=== PATIENT | female | born 1950 | race Caucasian/White ===

== ENCOUNTER 2022-10-20 10:01 | Outpatient (OUT) | payer MEDICARE, SELFPAY ==
[2022-10-20 10:52] LABS: Alanine Aminotransferase 46 U/L (14-59); Albumin Level 3.6 g/dL (3.4-5.0); Alkaline Phosphatase 69 U/L (46-116); Anion Gap 10.5; Aspartate Amino Transferase 46 U/L (15-37); BUN Creatinine Ratio 16.2; Bilirubin Total 0.8 mg/dL (0.2-1.0); Calcium 9.1 mg/dL (8.5-10.1); Carbon Dioxide 29.9 mmol/L (21.0-32.0); Chloride 102 mmol/L (98-107); Estimated GFR (African America >60 (>=60); Estimated GFR (Non-African Ame 55 (>=60); Globulin 3.7 g/dL; Glucose 93 mg/dL (74-106); Potassium 4.4 mmol/L (3.5-5.1); Sodium 138 mmol/L (136-145); Total Protein 7.3 g/dL (6.4-8.2)
== END 2022-10-20 10:02 ==
LOC: LAB 10:08
DX: N18.30 Chronic kidney disease, stage 3 unspecified (principal)
CPT/HCPCS: 36415; 80053

== ENCOUNTER 2023-03-20 10:35 | Outpatient (RCR) | payer MEDICARE, SELFPAY | END 2023-04-15 17:10 | disposition home or self-care (01) | LOC: PT 10:35 | DX: M16.11 Unilateral primary osteoarthritis, right hip (principal) | CPT/HCPCS: 97110; 97112; 97161; 97530 ==

== ENCOUNTER 2023-04-15 10:40 | Outpatient (OUT) | payer MEDICARE, SELFPAY ==
[2023-04-15 12:43] LABS: Alanine Aminotransferase 19 U/L (14-59); Albumin Globulin Ratio 0.9; Albumin Level 3.7 g/dL (3.4-5.0); Alkaline Phosphatase 101 U/L (46-116); Anion Gap 13.1; Aspartate Amino Transferase 21 U/L (15-37); BUN Creatinine Ratio 10.8; Bilirubin Total 0.5 mg/dL (0.2-1.0); Calcium 9.2 mg/dL (8.5-10.1); Carbon Dioxide 27.4 mmol/L (21.0-32.0); Chloride 101 mmol/L (98-107); Estimated GFR (African America >60 (>=60); Estimated GFR (Non-African Ame 59 (>=60); Globulin 3.9 g/dL; Glucose 96 mg/dL (74-106); Magnesium 2.2 mg/dL (1.8-2.4); Potassium 4.5 mmol/L (3.5-5.1); Sodium 137 mmol/L (136-145); Total Protein 7.6 g/dL (6.4-8.2)
[2023-04-15 13:13] LABS: TSH W/ REFLEX FT4 2.922 (0.358-3.740)
== END 2023-04-15 10:41 | disposition home or self-care (01) ==
LOC: LAB 10:42
DX: R42 Dizziness and giddiness (principal)
CPT/HCPCS: 36415; 80053; 82607; 83735; 84443

== ENCOUNTER 2023-05-04 09:53 | Outpatient (RCR) | payer MEDICARE, SELFPAY | END 2023-05-17 08:00 | disposition home or self-care (01) | LOC: PT 09:53 | PROVIDERS: PCP Nurse Practitioner Family; Visit Provider Nurse Practitioner Family | DX: M47.812 Spondylosis without myelopathy or radiculopathy, cervical region (principal); R42 Dizziness and giddiness; M54.2 Cervicalgia; M79.603 Pain in arm, unspecified | CPT/HCPCS: 97110; 97161 ==

== ENCOUNTER 2023-05-18 10:03 | Outpatient (RCR) | payer MEDICARE, SELFPAY | END 2023-05-23 16:47 | disposition home or self-care (01) | LOC: PT 10:03 | PROVIDERS: PCP Nurse Practitioner Family; Visit Provider Nurse Practitioner Family | DX: M47.812 Spondylosis without myelopathy or radiculopathy, cervical region (principal); R42 Dizziness and giddiness; M54.2 Cervicalgia ==

== ENCOUNTER 2023-10-09 11:15 | Outpatient (OUT) | payer MEDICARE, SELFPAY ==
--- NOTE | 2023-10-09 | MM_ITS ---
Patient Name: GRACIE FAROOQ MR#: [id number] : 1950 Exam Date: 10/09/2023 Ordering Doctor: Gela Bustillo RADIOLOGY REPORT PROCEDURE: MM TOMOSYNTHESIS SCREENING BI COMPARISON: MG MAMM SCREEN MARYAM W CAD, 06/21/2018. MG MAMM SCREEN MARYAM W CAD, 05/19/2017. INDICATIONS: Breast Screening for malignant neoplasm Calculator Name NCI Breast Cancer Risk Assessment Tool 5 Year Breast Cancer Risk 2.20% Lifetime Breast Cancer Risk 5.70% Personal Breast Cancer No Personal Ovarian Cancer No Treatments None Family Cancers Father with lung cancer at age 76. LOCATION: [facility] BREAST COMPOSITION: The breasts are heterogeneously dense,which may obscure small masses. FINDINGS: DIAGNOSTIC CATEGORY 2--BENIGN FINDING: RIGHT BREAST: No significant suspicious finding. Scattered benign-appearing calcifications are present. No significant change has occurred. LEFT BREAST: No significant suspicious finding. Scattered benign-appearing calcifications are present. No significant change has occurred. RECOMMENDATIONS: ROUTINE MAMMOGRAM AND CLINICAL EVALUATION IN 12 MONTHS. PLEASE NOTE: A NORMAL MAMMOGRAM DOES NOT EXCLUDE THE POSSIBILITY OF BREAST CANCER. A CLINICALLY SUSPICIOUS PALPABLE LUMP SHOULD BE BIOPSIED. Dictated by: Jason Diego M.D. on 10/13/2023 at 12:13 Approved by: Jason Diego M.D. on 10/13/2023 at 12:14
[2023-10-09 12:20] LABS: Alanine Aminotransferase 30 U/L (14-59); Albumin Globulin Ratio 0.7; Albumin Level 3.6 g/dL (3.4-5.0); Alkaline Phosphatase 80 U/L (46-116); Anion Gap 11.5; Aspartate Amino Transferase 34 U/L (15-37); BUN Creatinine Ratio 14.4; Bilirubin Total 0.9 mg/dL (0.2-1.0); Calcium 9.3 mg/dL (8.5-10.1); Carbon Dioxide 28.3 mmol/L (21.0-32.0); Chloride 101 mmol/L (98-107); Chol HDL Ratio 2.7; Cholesterol 212 mg/dL (<=200); Estimated GFR (African America >60 (>=60); Estimated GFR (Non-African Ame 56 (>=60); Glucose 91 mg/dL (74-106); HDL Cholesterol 80 mg/dL (40-60); Potassium 3.8 mmol/L (3.5-5.1); Sodium 137 mmol/L (136-145); Total Protein 8.6 g/dL (6.4-8.2); Triglycerides 39 mg/dL (<=150); VLDL CHOLESTEROL 7.8 mg/dL
== END 2023-10-09 11:16 | disposition home or self-care (01) ==
LOC: MAMMO 11:18
PROVIDERS: PCP Nurse Practitioner Family; Visit Provider Nurse Practitioner Family
DX: Z12.31 Encounter for screening mammogram for malignant neoplasm of breast (principal); N18.9 Chronic kidney disease, unspecified; E78.5 Hyperlipidemia, unspecified; Z80.1 Family history of malignant neoplasm of trachea, bronchus and lung
CPT/HCPCS: 36415; 77063; 77067; 80053; 80061

== ENCOUNTER 2024-11-09 07:19 | Outpatient (OUT) | payer MEDICARE, SELFPAY ==
--- OUTSIDE RECORDS SUMMARY | 2024-11-08 14:35 | XMS_ITS | Patient Health Record ---
Author Organization [facility] C Address [address] [place] [address] Care Team Providers Care Retail Business Manager Name Role Phone [facility] Primary Care Provide r Unavailable Allergies Allergen (clinical drug ingredient) Drug/Non Drug Allergy documented on EMR Reaction Allergy Type Onset Date Status ANESTHESIAS (uncoded) stays in the hospital longer than planned Allergy Active Reason For Referral No Information Medications Medication SIG (Take, Route, Frequency, Duration) Notes Start Date End Date Status Lutein *Please review a nd pick correct strength-formulation from Cold Futuresan options. If intended option is not shown, discontinue and re-order from Quick Search* Active predniSONE 20 MG 1 tab(s) orally once a day for 5 days 02/15/2018 Active Immunizations Vaccine Route Administration Date Status Comme nts Flu Vaccine (Given in Past) Unspecified Unknown 06/03/2022 Administered Pneumonia ( Given in the Pas t) Unspecified Unknown 06/03/2022 Administered Plan Of Treatment No Information Insurance Providers Payer Name Payer Address Payer Phone Subscriber Number Group Number Insured Name Patient Relationship to Insured Coverage Start Date Coverage End [place] [address] [place] [address] [id number] GRACIE Jones Self - patient is the insured [place] [employer] MEDICARE SUPPLEMENT ADMINISTRAT [place]ON [address] [address] [place] [address] [id number] GRACIE Jones Self - patient is the insured Medical (General) History Medical History History ICD Code Macular Degeneration Surgical History Surgery Date(Month/Year) Spine C-sections x2 Hospitalization History Reason Date(Month/Year) See above
--- OUTSIDE RECORDS SUMMARY | 2024-11-08 14:35 | XMS_ITS | Clinical Summary ---
Author Organization [facility] Address [address] [place] [address] Care Team Providers Care City Tax Auditor Name Role Phone Unallocated, Noms Provider Primary Care Provi magali Gela Bustillo SPRINKLER FITTER HELPER Unavailable Allergies Active Allergy Reactions Criticality Noted Date Comments Hydrocodone-Acetaminophen Nausea Only Medium 3 Mosquito (Diagnostic) Swelling 01/06/2023 Oxycodone Nausea Only Medium 01/06/2023 Propofol Unknown 01/06/2023 Medications Jublia 10 % solutionIndicat ions:Onychomyco sis APPLY ONCE TOPICALLY DAILY 4 mL 3 5 Active Efinaconazole (Jublia) 10 % solutionIndicat ions:Onychomyco sis Apply 1 application topically Daily 10 mL 3 5 12/27/19 25 Active Active Problems Problem Noted Date Diagnosed Date Dizziness 02/16/2024 Assessment & Plan (02/16/2024 10:48 AM EDT): --- cervicogenic dizziness. PT 2nd opinion - [facility]. Cervical paraspinal muscle spasm 02/16/2024 Assessment & Plan (02/16/2024 10:51 AM EDT): PT. Add Mg. No clear need for Rx muscle relaxant, but pt could have tizanidine 4 if/when desired. Encounters Date Type Department Care Team Description 11/03/2024 Travel 09/26/2024 11:30 AM EDT Procedure Visit [facility] [address] [place] [address] Catherine Vega DPM Onychomycosis (Primary Dx); Pain in both feet; Corns and callosities 09/26/2024 Telephone [facility] [address] [place] [address] TereTomeka MA Nirmala 09/26/2024 Refill [facility] [address] [place] [address] Catherine Vega DPM Onychomycosis 09/26/2024 Bamboo flowsheet [facility] [address] [place] [address] Catherine Vega DPM 09/26/2024 Travel from Last 3 Months Family History Medical History Relation Name Comments Uterine cancer Maternal Grandmother Relation Name Status Comments Daughter Alive Father Maternal Grandmother Mother Sister Alive Son Alive Social History Tobacco Use Types Packs/Day Years Used Date Smoking Tobacco: Former Cigarettes Tobacco Cessation:Counseling Given: Not Answered Alcohol Use Standard Drinks/Week Comments Never 0 (1 standard drink = 0.6 oz pure alcohol) caffeine intake: 1-2 cups per day Comments Unknown Sex and Gender Information Value Date Recorded Sex Assigned at Not on file Legal Sex Female 6:41 PM EDT Gender Identity Not on file Sexual Orientation Not on file Last Filed Vital Signs Vital Sign Reading Time Taken Comments Blood Pressure 137/87 02/16/2024 10:15 AM EDT Pulse 71 02/16/2024 10:15 AM EDT Temperature - - Respiratory Rate - - Oxygen Saturation - - Inhaled Oxygen Concentration - - Weight 70.3 kg (155 lb) 02/16/2024 10:15 AM EDT Height 157.5 cm (5' 2 ) 02/16/2024 10:15 AM EDT Body Mass Index 28.35 02/16/2024 10:15 AM EDT Plan of Treatment Upcoming Encounters Date Type Department Care Team (Late st Contact Info) Description 11/10/2024 8:00 AM EDT Evaluation [facility] [address] [place] [address] Tamara Peres, PT 12/26/2024 11:30 AM EDT Procedure Visit [facility] [address] [place] [address] Catherine Vega, DPM [address] [facility] [address] [place] [address] Health Maintenance Due Date Last Done Comments CT Colonography 1950 Colonoscopy 1950 Colorectal Cancer Screening 1950 FIT-DNA 1950 FIT 1950 FOBT 1950 Sigmoidoscopy 1950 Mammogram 06/21/2019 06/21/2018, 06/21/2018 Pneumococcal Vaccine: 65+ Years Completed 06/03/2022, 04/07/2019, 2017 Influenza Vaccine Completed 02/04/2024, , 06/03/2022, Additional history exists Procedures Procedure Name Priority Date/Time Associated Diagnosis Comments BI MAMMOGRAM SCREENING BILATERAL Routine 06/21/2018 Diffuse cystic mastopathy of right breast Encounter for screening mammogram for malignant neoplasm of breast from Last 3 Months or Most Recently Relevant to Health Maintenance Results * Bilateral screening mammogram (06/21/2018) Anatomical Region Laterality Modality Breast Bilateral Mammography Impressions 06/21/2018 12:00 AM EST NO MAMMOGRAPHIC EVIDENCE OF MALIGNANCY. ROUTINE FOLLOW-UP IS RECOMMENDED IN ONE YEAR. RESULT CODE: 2 Benign Findings(s) DENSITY CODE: 3 FOLLOW UP: 1YR The false-negative rate of mammography is approximately 10-percent. Management of a palpable abnormality must be based on clinical grounds. Patient was entered into a reminder system with a target due date for the next mammogram. Impression dictated by: Tiana Ayers M.D.06/21/2018 3:36 PM Dictation Location: [facility] Transcribed By: CORNEL 06/21/18 1536 Dictated By: Tiana Ayers MD 06/21/18 1533 Signed By: <Electronically signed by Tiana Ayers MD in OV> 06/21/18 1536 Narrative 06/21/2018 12:00 AM EST PERFORMED AT [facility] LOCATION:[place] [address] Mammography Report Signed Patient: Hayde Jones MR#: [id number] : 1950 Acct:[id number] Age/Sex: 68 / F ADM Date: 06/21/18 Loc: [place] Room: Type: REG CLI Attending Dr: Walter Horne MD Ordering Provider: Walter Horne MD Date of Service: 06/21/18 MM/MM screening mammo BI w/CAD: scrn;Breast cancer screening Copies to: Walter Horne MD CLINICAL DATA: Screening for malignancy. BILATERAL SCREENING MAMMOGRAMS - FULL FIELD DIGITAL WITH TOMOSYNTHESIS AND CAD Tomosynthesis craniocaudal and mediolateral oblique views of both breasts were obtained using low- dose digital technique. Comparison is made to prior studies from March 27, 2014 through 2017. This examination was reviewed with the aid of CAD. The breast parenchyma is heterogeneously dense. There are multiple scattered benign as well as vascular calcifications. A small intramammary lymph node is present on the right. There are no developing masses, typically malignant calcifications or architectural distortion. There has been no significant interval change. MM/MM screening mammo BI w/CAD Procedure Note CONVERSION, GENERIC - 11/21/2022 PERFORMED AT [facility] LOCATION:[place] [id number] Mammography Report Signed Patient: Hayde Jones MR#: [id number] : 1950 Acct:[id number] Age/Sex: 68 / F ADM Date: 06/21/18 Loc: [place] Room: Type: REG CLI Attending Dr: Walter Horne MD Ordering Provider: Walter Horne MD Date of Service: 06/21/18 MM/MM screening mammo BI w/CAD: scrn;Breastcancer screening Copies to: Walter Horne MD CLINICAL DATA: Screening for malignancy. BILATERAL SCREENING MAMMOGRAMS - FULL FIELD DIGITAL WITH TOMOSYNTHESISAND CAD Tomosynthesis craniocaudal and mediolateral oblique views of both breastswere obtained using low- dose digital technique. Comparison is made to prior studies from 2013 through 2017. This examination was reviewed with the aid of CAD. The breast parenchyma is heterogeneously dense. There are multiplescattered benign as well as vascular calcifications. A small intramammary lymph node is present onthe right. There are no developing masses, typically malignant calcifications or architecturaldistortion. There has been no significant interval change. MM/MM screening mammo BI w/CAD IMPRESSION: NO MAMMOGRAPHIC EVIDENCE OF MALIGNANCY. ROUTINE FOLLOW-UP IS RECOMMENDED IN ONE YEAR. RESULT CODE: 2 Benign Findings(s) DENSITY CODE: 3 FOLLOW UP: 1YR The false-negative rate of mammography is approximately 10-percent. Management of a palpable abnormality must be based on clinical grounds. Patient was entered into a reminder system with a target due date for thenext mammogram. Impression dictated by: Tiana Ayers M.D.06/21/2018 3:36 PM Dictation Location: [facility] Transcribed By: [facility] 06/21/18 1536 Dictated By: Tiana Ayers MD 06/21/18 1533 Signed By: <Electronically signed by Tiana Ayers MD in OV> Walter Horne IMG BI PROCEDURES Final Result from Last 3 Months or Most Recently Relevant to Health Maintenance Insurance MEDICARE [employer] Care Teams City Tax Auditor Relationship Specialty Start Date End Date Unallocated, Noms Provider, [address] [place] [address] PCP - General 01/06/23 Gela Bustillo NP [address] [place] [address] Referring Physician Family Medicine 06/27/24
--- OUTSIDE RECORDS SUMMARY | 2024-11-08 14:35 | XMS_ITS | Encounter Summary ---
Author Organization [facility] Address [address] [place] [address] Care Team Providers Care Combat Information Center Officer Name Role Phone Unallocated, Noms Provider Primary Care Provi magali Gela Bustillo NP Unavailable [phone] Encounter Details Date Type Department Care Team (Latest Contact Info) Description 11/03/2024 Travel Social History Tobacco Use Types Packs/Day Years Used Date Smoking Tobacco: Former Cigarettes Alcohol Use Standard Drinks/Week Comments Never 0 (1 standard drink = 0.6 oz pure alcohol) caffeine intake: 1-2 cups per day Comments Unknown Sex and Gender Information Value Date Recorded Sex Assigned at Not on file Legal Sex Female 6:41 PM EDT Gender Identity Not on file Sexual Orientation Not on file documented as of this encounter Plan of Treatment Upcoming Encounters Date Type Department Care Team (Late st Contact Info) Description 11/10/2024 8:00 AM EDT Evaluation [facility] [address] [facility] [address] [place] [phone] Tamara Peres, PT 12/26/2024 11:30 AM EDT Procedure Visit [facility] [address] [place] [address] Catherine Vega DPM [address] [place] [address] documented as of this encounter Visit Diagnoses Not on filedocumented in this encounter Care Teams Combat Information Center Officer Relationship Specialty Start Date End Date Unallocated, Noms Provider, MD [address] [place], [place] [phone] PCP - General 01/06/23 Gela Bustillo NP [address] [place] [address] Referring Physician Family Medicine 06/27/24 documented as of this encounter
--- OUTSIDE RECORDS SUMMARY | 2024-11-08 14:35 | XMS_ITS | Encounter Summary ---
Author Organization [facility] Address [address] [place] [address] Care Team Providers Care Carry Out Clerk Name Role Phone Gela Bustillo CNP Unavailable [phone] Gela Bustillo FREDI Primary Care Provider [phone] Source Comments In the event this information is protected by the Federal Confidentiality of Alcohol and Drug AbusePatient Records regulations: The Federal rules restrict any use of the information to criminally investigate or prosecute any alcohol or drug abuse patient.[facility] Reason for Visit * Reason Comments Radiology XR Encounter Details Date Type Department Care Team (Late st Contact Info) Description 04/13/2023 Radiology Radiology [address] [place] [address] Georgia Walls RT(R) Radiology XR Social History Tobacco Use Types Packs/Day Years Used Date Smoking Tobacco: Former Cigarettes 0.2 1 1 973 - 1974 Smokeless Tobacco: Never Alcohol Use Standard Drinks/Week Comments Yes 0 (1 standard drink = 0.6 oz pur e alcohol) occasionally Social Connection and Isolat ion Panel [NHANES] Answer Date Recorded In a typical week, how many times do you talk on the phone with family, friends, or neighbors? Once a week 06/29/2022 How often do you get togethe r with friends or relatives? More than three times a week 06/29/2022 How often do you attend chur ch or christian services? More than 4 times per year 06/29/2022 Do you belong to any clubs o r organizations such as muslim groups, unions, fraternal or athletic groups, or school groups? Yes 06/29/2022 How often do you attend meet ings of the clubs or organizations you belong to? More than 4 times per year 06/29/2022 Are you , , di vorced, , never , or living with a partner? 06/29/2022 AUDIT-C Answer Date Recorded Q1: How often do you have a drink containing alc ohol? 2-4 times a month 06/29/2022 Q2: How many drinks containi ng alcohol do you have on a typical day when you are drinking? 1 or 2 06/29/2022 Q3: How often do you have si x or more drinks on one occasion? Never 06/29/2022 Overall Financial Resource Strain (CARDIA) Answe r Date Recorded How hard is it for you to pa y for the very basics like food, housing, medical care, and heating? Not hard at all 03/18/2023 PHQ-2 Answer Date Recorded PHQ-2 score 4 04/06/2023 [facility] of Occupat ional Health - Occupational Stress Questionnaire Answer Date Recorded Do you feel stress - tense, restless, nervous, or anxious, or unable to sleep at night because your mind is troubled all the time - these days? Not at all 06/29/2022 Exercise Vital Sign Answer Date Recorde d On average, how many days pe r week do you engage in moderate to strenuous exercise (like a brisk walk)? 6 days 06/29/2022 On average, how many minutes do you engage in exercise at this level? 60 min 06/29/2022 Hunger Vital Sign Answer Date Recorded Within the past 12 months, y ou worried that your food would run out before you got the money to buy more. Never true 03/18/20 23 Within the past 12 months, t he food you bought just didn't last and you didn't have money to get more. Never true 03/18/2023 PRAPARE - Transportation Answer Date Re corded In the past 12 months, has l ack of transportation kept you from medical appointments or from getting medications? No 05/2022 In the past 12 months, has l ack of transportation kept you from meetings, work, or from getting things needed for daily living? No 03/18/2023 Housing Stability Vital Sign Answer Prasanna e Recorded In the last 12 months, was t here a time when you were not able to pay the mortgage or rent on time? No 03/18/2023 Number of Places Lived in the Last Year Not on f ile 03/18/2023 In the last 12 months, was t here a time when you did not have a steady place to sleep or slept in a retirement (including now)? No 03/18/2023 Area Deprivation Index Answer Date Atnhony rded National Score (1-100), lower number is lower ri sk 79 10/14/2022 State Score (1-10), lower number is lower risk 7 10/14/2022 Data from: https://www.neighborhoodatlas.medicine.[facility].edu/. Last address used for calculation [address] 10/14/2022 Comments No Sex and Gender Information Value Date Recorded Sex Assigned at Female 10/20/2021 8:50 PM EDT Legal Sex Female 11:55 AM EDT Gender Identity Female 10/20/2021 8:50 PM EDT Sexual Orientation Straight 10/20/2021 8: 50 PM EDT documented as of this encounter Functional Status * Are you deaf or do you have serious difficulty hearing? Answer Date of Assessment Author No 03/19/2023 1:09 PM EDT Tamra Weller RN * Are you blind or do you have serious difficulty seeing, even when wearing glasses? Answer Date of Assessment Author No 03/19/2023 1:09 PM EDT Tamra Weller RN * Do you have serious difficulty walking or climbing stairs? Answer Date of Assessment Author No 03/19/2023 1:09 PM EDT Tamra Weller RN * Do you have difficulty dressing or bathing? Answer Date of Assessment Author No 03/19/2023 1:09 PM EDT Tamra Weller RN * Because of a physical, mental, or emotional condition, do you have difficulty doing errands alone such as visiting a doctor's office or shopping? Answer Date of Assessment Author No 03/19/2023 1:09 PM EDT Tamra Weller RN documented as of this encounter Mental Status * Because of a physical, mental, or emotional condition, do you have serious difficulty concentrating, remembering, or making decisions? Answer Entry Date Author No 03/19/2023 1:09 PM EDT Tmara Weller RN documented in this encounter Progress Notes * Georgia Walls RT(R) - 04/13/2023 10:34 AM EST Radiology Service Progress Note PATIENT NAME: Hayde Jones DATE OF SERVICE: April 13, 2023 TIME: 10:34 AM PATIENT IDENTITY VERIFICATION COMPLETED USING TWO (2) IDENTIFIERS: Name and Date of confirmedby patient verbally. FALL SCREENING: Has the patient had 2 falls in the last year or 1 fall with injury or currently using an Ambulatory Assistive Device (Walker, Cane, Wheelchair, Crutches, etc.)? No PATIENT GENDER DATA: Female. status: : No status: NO. PATIENT RELEVANT IMPLANT DATA REVIEWED: Not Applicable RADIOLOGY DEPARTMENT: General X-ray: Exam(s) Completed: Pelvis X-Ray: Pelvis General AP PERIPHERAL IV DATA: Not applicable SIGNED BY: RT Bridger(Linda) April 13, 2023 10:34 AM documented in this encounter Plan of Treatment Upcoming Encounters Date Type Department Care Team (Late st Contact Info) Description 12/07/2024 12:30 PM EDT Office Visit Orthopaedics [address] [place], [place] [id number] Aurora Amaya PA-C [address] [place], [place] [phone] 2 month f/u RIGHT HIP PAIN documented as of this encounter Visit Diagnoses Not on filedocumented in this encounter Care Teams Carry Out Clerk Relationship Specialty Start Date End Date Gela Bustillo CNP [address] [place] [address] PCP - General Family Medicine 03/10/22 Gela Bustillo CNP [address] [address] Referring Family Medicine 10/02/21 documented as of this encounter
--- OUTSIDE RECORDS SUMMARY | 2024-11-08 14:36 | XMS_ITS | Clinical Summary ---
Author Organization [facility] Address [address] [place], [place] [address] Care Team Providers Care Certified Travel Counselor Name Role Phone Keny Gela RAI Unavailable [phone] KenyGela FREDI Primary Care Provider [phone] Allergies No known active allergies Medications Cholecalciferol , Vitamin D3, 50 mcg (2,000 unit) cap Take 2,000 Units by mouth once daily. 12/25/2021 Active turmeric 400 mg cap Take 1 capsule by mouth once daily. Active Active Problems Problem Noted Date Diagnosed Date Piriformis syndrome, right 03/28/2024 Trochanteric bursitis of right hip 09/23/2023 Aftercare following right hip joint replacement surgery 04/13/2023 S/P hip replacement, right 03/18/2023 Acute postoperative pain of right hip 03/18/2023 Hypotension due to hypovolemia 03/17/2023 Sinus bradycardia 03/17/2023 PONV (postoperative nausea and vomiting) 023 Assessment & Plan (02/18/2023 9:38 AM EDT): Assessment: states hx of nausea post op Primary osteoarthritis of right hip 02/18/2023 Elevated BP without diagnosis of hypertension Assessment & Plan (02/18/2023 9:38 AM EDT): Assessment: Denies hx of HTN Last 4 Encounter BP Readings: Date: BP: 02/18/2023 145/84 09/02/2022 135/67 08/05/2022 146/90 06/30/2022 152/86 Pre-operative examination 03/25/2022 Fuchs' corneal dystrophy of both eyes 03/25/2022 Stage 3 chronic kidney disease 12/09/2021 Assessment & Plan (02/18/2023 9:37 AM EDT): Assessment: hx of CKD, most recent labs stable Follows nephrology. BMP Latest Ref Rng & Units 01/07/2023 GLUCOSE 74 - 99 mg/dL 100(H) BUN 7 - 21 mg/dL 13 CREATININE 0.58 - 0.96 mg/dL 0.92 SODIUM 136 - 144 mmol/L 134(L) POTASSIUM 3.7 - 5.1 mmol/L 4.0 CHLORIDE 97 - 105 mmol/L 100 CO2 22 - 30 mmol/L 26 ANION GAP 9 - 18 mmol/L 8(L) CALCIUM, TOTAL 8.5 - 10.2 mg/dL 9.4 eGFR >=60 mL/min/1.73m 67 Assessment & Plan (08/05/2022 10:24 AM EDT): Assessment: stable following with PCP Hyperlipidemia, unspecified 04/06/2021 Encounters Date Type Department Care Team Description 10/06/2024 9:02 AM EDT - 10/06/2024 11:59 PM EDT Hospital Encounter Radiology [address] [place] [address] Trochanteric bursitis of right hip [M70.61] Discharge Disposition: Home 10/06/2024 9:00 AM EDT Office Visit Orthopaedics [address] [place] [address] Aurora Amaya PA-C Trochanteric bursitis of right hip (Primary Dx); Piriformis syndrome, right; Aftercare following right hip joint replacement surgery 10/06/2024 Radiology Radiology [address] [place] [address] Bethany Ramachandran, RT(R) Radiology XR 10/04/2024 Travel from Last 3 Months Immunizations Immunization Administration Dates Next Due hepatitis A (HepA) vaccine, adult (HAVRIX, VAQTA ) 01/02/2015,06/14/2014 influenza (HD-IIV3) vaccine, age 65+ yr, high dose, trivalent, PF (FLUZONE HIGH-DOSE) 03/26/2017 influenza (IIV4) vaccine, ag e 6 mo - 64 yr, quadrivalent (AFLURIA, FLULAVAL, FLUZONE) 03/25/2022 influenza (aIIV3) vaccine, a ge 65+ yr, trivalent, PF (FLUAD) 04/07/2019 influenza (aIIV4) vaccine, a ge 65+ yr, quadrivalent, PF (FLUAD QUAD) 03/25/2022,03/01/2021 novel influenza (V6K8-38) vaccine, PF 05/08/2009 pneumococcal conjugate (PCV1 3) vaccine, 13 valent (PREVNAR 13) 2017 pneumococcal polysaccharide (PPV23) vaccine, 23 valent (PNEUMOVAX 23) 04/07/2019 tetanus diphtheria pertussis (Tdap) vaccine, age 7+ yr (ADACEL, BOOSTRIX) 04/07/2019 typhoid vaccine, subcutaneous/intradermal 2014 zoster (RZV) vaccine, recombinant (SHINGRIX) 09/2018,03/23/2018 Family History Medical History Relation Comments PONV Daughter Relation Status Comments Daughter Social History Tobacco Use Types Packs/Day Years Used Date Smoking Tobacco: Former Cigarettes 0.2 1 1 973 - 1974 Smokeless Tobacco: Never Tobacco Cessation:Counseling Given: Not Answered Alcohol Use Standard Drinks/Week Comments Yes 0 [...] often do you attend chur ch or spiritism services? More than 4 times per year 06/29/2022 Do you belong to any clubs o r organizations such as jain groups, unions, fraternal or athletic groups, or [...] 03/18/2023 PHQ-2 Answer Date Recorded PHQ-2 score 1 10/04/2024 [facility] - Occupational Stress [...] place to sleep or slept in a halfway (including now)? No 03/18/2023 Area Deprivation Index Answer Date Anthony rded National Score (1-100), lower number is lower ri sk 79 10/14/2022 State Score (1-10), lower number is lower risk 7 10/14/2022 Data from: https://www.neighborhoodatlas.[facility].edu/. Last address used for calculation [address] 10/14/2022 Comments No Sex and Gender Information Value Date Recorded Sex Assigned at Female 10/20/2021 8:50 PM EDT Legal Sex Female 11:55 AM EDT Gender Identity Female 10/20/2021 8:50 PM EDT Sexual Orientation Straight 10/20/2021 8: 50 PM EDT Last Filed Vital Signs Vital Sign Reading Time Taken Comments Blood Pressure 108/56 03/19/2023 11:44 AM EDT Pulse 68 03/19/2023 11:44 AM EDT Temperature 36.7 C (98.1 F) 03/19/2023 11:44 AM EDT Respiratory Rate 16 03/19/2023 11:44 AM EDT Oxygen Saturation 100% 03/19/2023 11:44 AM EDT Inhaled Oxygen Concentration - - Weight 72.1 kg (159 lb) 03/28/2024 8:47 AM EST Height 157.5 cm (5' 2 ) 03/28/2024 8:47 AM EST Body Mass Index 29.08 03/28/2024 8:47 AM EST Plan of Treatment Upcoming Encounters Date Type Department Care Team (Late st Contact Info) Description 12/07/2024 12:30 PM EDT Office Visit Orthopaedics [address] [place], [place] [id number] Aurora Amaya PA-C [address] [place] [address] 2 month f/u RIGHT HIP PAIN Health Maintenance Due Date Last Done Comments Anxiety Screening 1969 Depression Screening 1969 Hepatitis C Screening 1969 CT Colonography 1996 Cologuard (FIT-DNA) 1996 Colonoscopy 1996 Colorectal Cancer Screening 1996 Fecal Occult Blood 1996 Lipid Screening 1996 Sigmoidoscopy 1996 Bone Density Screening 2016 Medicare Annual Wellness Visit 10/16/2016 Mammogram Screening 06/21/2019 06/21/2018, 06/21/2018, 06/21/2018 Annual PCP Team Chronic Dise ase Visit 06/30/2023 06/30/2022 Covid-19 Vaccine (7 - 4-2 5 season) 2024 02/18/2023, 03/25/2022, 10/04/2021, Additional history exists Serum Creatinine 03/19/2024 03/19/2023, 05/2022, 01/07/2023 Advance Directive Discussion 05/18/2024 Influenza Vaccine (Season Ended) 2025 02/18/2023, 06/03/2022, 03/25/2022, Additional history exists Diabetes Screening 03/19/2026 03/19/2023, 1 05/18/2022, 01/07/2023, Additional history exists DTaP,Tdap,Td Vaccine (2 - Td or Tdap) 04/07/2029 04/07/2019, 04/07/2019 Shingrix Vaccine Completed 07/20/2018, 03/23/2018 Pneumococcal Vaccine: 50+ Completed 2022, 04/07/2019, 2017 RSV Vaccine Completed 04/29/2023 Medical Devices Implanted Type Area Patient Access Manager Device Identifier Shelf Expiration Date Model / Serial / Lot Cornea Tissue Pre-Loaded Dmek - [id number] Implanted:Qty: 1 on 03/17/2022 by Alex Combs MD at [facility] Cornea Left: Eye [employer] 03/26/2022 CORNEA TISSUE FEE / [id number] / Cornea Tissue Pre-Loaded Dmek - [id number] Implanted:Qty: 1 on 04/14/2022 by Alex Combs MD at [facility] Cornea Right: Eye [employer] 04/20/2022 CORNEA TISSUE FEE / [id number] / Gas Ispan Constellation Intraocular Vision System Sf6 125gm - [id number] Implanted:Qty: 1 on 03/17/2022 by Alex Combs MD at [facility] Implant Left: Eye [employer] 10/16/2023 [id number] / / [id number] Gas Ispan Constellation Intraocular Vision System Sf6 125gm - [id number] Implanted:Qty: 1 on 04/14/2022 by Alex Combs MD at [facility] Implant [employer] 12/16/2023 [id number] / / [id number] Lens Iol 0d +21 Eloisa Uv Abs - [id number] Implanted:Qty: 1 on 03/17/2022 at [facility] Intraocular Lens Left: Eye [employer] 10/30/2025 SA60WF.210 / [id number] / Lens Iol 0d +21.5 Eloisa Uv Abs - [id number] Implanted:Qty: 1 on 04/14/2022 at [facility] Intraocular Lens Right: Eye [employer] 11/09/2026 SA60WF.215 / [id number] / Head V40 Lfit 22mm +3mm Offset Taper Cocr Femoral Primary Hip - [id number] Implanted:Qty: 1 on 03/17/2023 at [facility] Joint - Hip Right: Bone - Hip [employer] 11/05/2027 [id number] / / [id number] Shell Trident Ii 46mm C Tritanium Acetabular 3 Screw Hole Cluster Sterile - [id number] Implanted:Qty: 1 on 03/17/2023 at [facility] Joint - Hip Right: Bone - Hip [employer] 10/08/2027 [id number] / / [id number] Liner Mdm 36mm C Cocr Acetabular 2 Mobility Modular Hip - [id number] Implanted:Qty: 1 on 03/17/2023 at [facility] Joint - Hip Right: Bone - Hip [employer] 01/14/2028 [id number] / / [id number] Estefany Adm X3 Ins Estefany Adm X3 Ins 42 - [id number] Implanted:Qty: 1 on 03/17/2023 at [facility] Joint - Hip Right: Bone - Hip [employer] 08/11/2027 [id number] / / [id number] Stem Accolade Ii V40 132d 2 33mm Offset Purefix Titanium Plasma [place] 99mm - [id number] Implanted:Qty: 1 on 03/17/2023 at [facility] Joint Right: Bone - Hip [employer] 11/01/2025 [id number] / / [id number] Procedures Procedure Name Priority Date/Time Associated Diagnosis Comments XR HIP GENERAL 3V PELV/AP/LAT RIGHT Routine 10/06/2024 9:11 AM EDT Trochanteric bursitis of right hip Piriformis syndrome, right Aftercare following right hip joint replacement surgery BASIC METABOLIC PANEL Routine 03/19/2023 3:37 AM EDT from Last 3 Months or Most Recently Relevant to Health Maintenance Results * XR HIP GENERAL 3V PELV/AP/LAT RIGHT (10/06/2024 9:11 AM EDT) Anatomical Region Laterality Modality Hip Other 10/06/2024 9:11 AM EDT Impressions 10/06/2024 9:31 AM EDT IMPRESSION: Right total hip arthroplasty without complication. Hand Laminator: PSCB Transcribe Date/Time: Oct 06 2024 9:12A Dictated by : RENA MUSE MD This examination was interpreted and the report reviewed and electronically signed by: ISAIAH MONROY MD on Oct 06 2024 9:29AM EST Narrative 10/06/2024 9:31 AM EDT * * *Final Report* * * DATE OF EXAM: Oct 06 2024 9:11AM LZX 5352 - XR HIP 3V PELV+ AP/LAT RT / PROCEDURE REASON: multiple diagnoses * * * * Physician Interpretation * * * * EXAMINATION / TECHNIQUE: XR HIP 3V PELV+ AP/LAT RT PATIENT/TECHNOLOGIST PROVIDED HISTORY: rt hip continued pain since surger over a year ago CLINICAL INFORMATION ( PROVIDED BY ORDERING CLINICIAN) : Trochanteric bursitis of right hip Piriformis syndrome, right Aftercare following right hip joint replacement surgery Aftercare following right hip joint replacement surgery COMPARISON: Radiographs 03/28/2024 RESULT: Right total hip arthroplasty with intact and well-seated hardware. No periprosthetic fracture or lucency. Alignment is unchanged. Minimal heterotopic ossification about the right hip prosthesis. No acute fracture or dislocation. Mild degenerative changes of the bilateral sacroiliac joints and symphysis pubis. Fallopian tube clips noted in the pelvis. Procedure Note Provider, [facility] [place] - 10/06/2024 * * *Final Report* * * DATE OF EXAM: Oct 06 2024 9:11AM LZX 5352 - XR HIP 3V PELV+ AP/LAT RT / PROCEDURE REASON: multiple diagnoses * * * * Physician Interpretation * * * * EXAMINATION / TECHNIQUE: XR HIP 3V PELV+ AP/LAT RT PATIENT/TECHNOLOGIST PROVIDED HISTORY: rt hip continued pain since surger over a year ago CLINICAL INFORMATION ( PROVIDED BY ORDERING CLINICIAN) : Trochanteric bursitis of right hip Piriformis syndrome, right Aftercare following right hip joint replacement surgery Aftercare following right hip joint replacement surgery COMPARISON: Radiographs 03/28/2024 RESULT: Right total hip arthroplasty with intact and well-seated hardware. No periprosthetic fracture or lucency. Alignment is unchanged. Minimal heterotopic ossification about the right hip prosthesis. No acute fracture or dislocation. Mild degenerative changes of the bilateral sacroiliac joints and symphysis pubis. Fallopian tube clips noted in the pelvis. IMPRESSION IMPRESSION: Right total hip arthroplasty without complication. Hand Laminator: ANDREW Transcribe Date/Time: Oct 06 2024 9:12A Dictated by : RENA MUSE MD This examination was interpreted and the report reviewed and electronically signed by: ISAIAH MONROY MD on Oct 06 2024 9:29AM EST us Aurora RAI-PAMAntoinette Final Result * (ABNORMAL) BASIC METABOLIC PNL (03/19/2023 3:37 AM EDT) Glucose 121(H) 74 - 99 mg/dL 03/19/2023 4:35 AM EDT [facility] Comment: The [place] Diabetes Association (ADA) provides guidance for cutoff values for fasting glucose and random glucose. The ADA defines fasting as no caloric intake for at least 8 hours. Fasting plasma glucose results between 100 to 125 mg/dL indicate increased risk for diabetes (prediabetes). Fasting plasma glucose results greater than or equal to 126 mg/dL meet the criteria for diagnosis of diabetes. In the absence of unequivocal hyperglycemia, results should be confirmed by repeat testing. In a patient with classic symptoms of hyperglycemia or hyperglycemic crisis, random plasma glucose results greater than or equal to 200 mg/dL meet the criteria for diagnosis of diabetes. Reference: Standards of Medical Care in Diabetes 2016, Canadian Diabetes Association. Diabetes Care. 2016.39(Suppl 1). BUN 15 7 - 21 mg/dL 03/19/2023 4:35 AM [facility] Creatinine 0.92 0.58 - 0.96 mg/dL 03/19/2023 4:35 AM [facility] Sodium 127(L) 136 - 144 mmol/L 03/19/2023 4:35 AM [facility] Potassium 4.3 3.7 - 5.1 mmol/L 03/19/2023 4:35 AM [facility] Chloride 92(L) 97 - 105 mmol/L 03/19/2023 4:35 AM [facility] CO2 27 22 - 30 mmol/L 03/19/2023 4:35 AM [facility] Anion Gap 8(L) 9 - 18 mmol/L 03/19/2023 4:35 AM [facility] Calcium, Total 7.9(L) 8.5 - 10.2 mg/dL 03/19/2023 4:35 AM [facility] Estimated Glomerular Filtration Rate 67 >=60 mL/min/1. 73m 03/19/2023 4:35 AM [facility] Comment:Estimated Glomerular Filtration Rate (eGFR) is calculated using the 2020 CKD-EPI creatinine equation. This equation utilizes serum creatinine, sex, and age as parameters. The creatinine assay has traceable calibration to isotope dilution- mass spectrometry. Refer to KDIGO guidelines for clinical interpretation. In patients with unstable renal function, e.g. those with acute kidney injury, the eGFR may not accurately reflect actual GFR. Blood BLOOD SPECIMEN / Unknown Venipuncture / Unknown 03/19/2023 3:37 AM EDT 03/19/2023 4:10 AM EDT us Aurora Amaya PA-C LABORATORY Final Result [facility] [address] [facility] [place] [address], [place] from Last 3 Months or Most Recently Relevant to Health Maintenance Insurance MEDICARE MEDICARE SUPPLEMENT Advance Directives Documents on File Type Date Recorded Patient Solar Field Service Technician Expl anation Advance Directive(s) 06/30/2022 1:49 PM Care Teams Certified Travel Counselor Relationship Specialty Start Date End Date Gela Bustillo CNP [address] [address] PCP - General Family Medicine 03/10/22 Gela Bustillo CNP [address] [facility] [address] [place] [address] Referring Family Medicine 10/02/21
--- OUTSIDE RECORDS SUMMARY | 2024-11-09 07:21 | XMS_ITS | Encounter Summary ---
Author Organization [facility] Address [address] [address] Care Team Providers Care Child Welfare Specialist Name Role Phone Unallocated, Noms Provider Primary Care Provi magali Gela Bustillo NP Unavailable [phone] Encounter Details Date Type Department Care [...] AM EDT Evaluation [facility] [address] [facility] [address] [place] [id number] Tamara Peres, PT 12/26/2024 11:30 AM EDT Procedure Visit [facility] [address] [place] [address] Catherine Vega DPM [address] [place] [address] documented as of this encounter Visit Diagnoses Not on filedocumented in this encounter Care Teams Child Welfare Specialist Relationship Specialty Start Date End Date Unallocated, Noms Provider, MD [address] [place], [place] [id number] PCP - General 01/06/23 Gela Bustillo NP [address] [place] [address] Referring Physician Family Medicine 06/27/24 documented as of this encounter
--- OUTSIDE RECORDS SUMMARY | 2024-11-09 07:21 | XMS_ITS | Clinical Summary ---
Author Organization [facility] Address [address] [place], [place] [id number] Care Team Providers Care Wastewater Analyst Name Role Phone Keny Gela RAI Unavailable [phone] Keny Gela FREDI Primary Care Provider [phone] Allergies No known active allergies Medications Cholecalciferol [...] PM EDT Hospital Encounter Radiology [address] [place] [address] Trochanteric bursitis of right hip [M70.61] Discharge Disposition: Home 10/06/2024 9:00 AM EDT Office Visit Orthopaedics [address] [place] [address] Aurora Amaya PA-C Trochanteric bursitis of right hip (Primary Dx); Piriformis syndrome, right; Aftercare following right hip joint replacement surgery 10/06/2024 Radiology Radiology [address] [place] [address] Bethany Ramachandran, RT(R) Radiology XR 10/04/2024 Travel [...] quadrivalent, PF (FLUAD QUAD) 03/25/2022,03/01/2021 novel influenza (T1V1-56) vaccine, PF 05/08/2009 pneumococcal conjugate (PCV1 3) [...] often do you attend chur ch or methodist services? More than 4 times per year 06/29/2022 Do you belong to any clubs o r organizations such as roman catholic groups, unions, fraternal or athletic groups, or [...] Answer Date Recorded PHQ-2 score 1 10/04/2024 [facility] - Occupational [...] place to sleep or slept in a custodial (including now)? No 03/18/2023 Area Deprivation Index Answer Date Anthony rded National Score (1-100), lower number is lower ri sk 79 10/14/2022 State Score (1-10), lower number is lower risk 7 10/14/2022 Data from: https://www.neighborhoodatlas.[facility].edu/. Last address used for calculation [address] [...] 12/07/2024 12:30 PM EDT Office Visit Orthopaedics [address] [place], [place] [id number] Aurora Amaya PA-C [address] [place] [address] 2 month f/u RIGHT HIP [...] Completed 04/29/2023 Medical Devices Implanted Type Area Comic Book Artist Device Identifier Shelf Expiration Date Model / Serial / Lot Cornea Tissue Pre-Loaded Dmek - [id number] Implanted:Qty: 1 on 03/17/2022 by Alex Combs MD at [facility] Cornea Left: Eye [employer] 03/26/2022 CORNEA TISSUE FEE / [id number] 1000 / Cornea Tissue Pre-Loaded Dmek - [id number] Implanted:Qty: 1 on 04/14/2022 by Alex Combs MD at [facility] Cornea Right: Eye [employer] 04/20/2022 CORNEA TISSUE FEE / 22 [id number] / Gas Ispan Constellation Intraocular Vision System Sf6 125gm - [id number] Implanted:Qty: 1 on 03/17/2022 by Alex Combs MD at [facility] Implant Left: Eye [employer] 10/16/2023 [id number] / / [id number] Gas Ispan Constellation Intraocular Vision System Sf6 125gm - [id number] Implanted:Qty: 1 on 04/14/2022 by Alex Combs MD at [facility] Implant [employer] 12/16/2023 [id number] / / [id number] Lens Iol 0d +21 Eloisa Uv Abs - [id number] Implanted:Qty: 1 on 03/17/2022 at [facility] Intraocular Lens Left: Eye [employer] 10/30/2025 SA60WF.210 / [id number] / Lens Iol 0d +21.5 Eloisa Uv Abs - [id number] Implanted:Qty: 1 on 04/14/2022 at [facility] Intraocular Lens Right: Eye [employer] 11/09/2026 SA60WF.215 / [id number] / Head V40 Lfit 22mm +3mm Offset Taper Cocr Femoral Primary Hip - [id number] Implanted:Qty: 1 on 03/17/2023 at [facility] Joint - Hip Right: Bone - Hip [employer] 11/05/2027 [id number] / / [id number] Shell Trident Ii 46mm C Tritanium Acetabular 3 Screw Hole Cluster Sterile - [id number] Implanted:Qty: 1 on 03/17/2023 at [facility] Joint - Hip Right: Bone - Hip [employer] 10/08/2027 [id number] / / [id number] Liner Mdm 36mm C Cocr Acetabular 2 Mobility Modular Hip - [id number] Implanted:Qty: 1 on 03/17/2023 at [facility] Joint - Hip Right: Bone - Hip [employer] 01/14/2028 [id number] / / [id number] Estefany Adm X3 Ins Estefany Adm X3 Ins 42 - [id number] Implanted:Qty: 1 on 03/17/2023 at [facility] Joint - Hip Right: Bone - Hip [employer] 08/11/2027 [id number] / / [id number] Stem Accolade Ii V40 132d 2 33mm Offset Purefix Titanium Plasma [place] 99mm - [id number] Implanted:Qty: 1 on 03/17/2023 at [facility] Joint Right: Bone - Hip [employer] 11/01/2025 [id number] / / [id number] Procedures Procedure Name Priority Date/Time Associated Diagnosis [...] IMPRESSION: Right total hip arthroplasty without complication. Speech Clinician: PSCB Transcribe Date/Time: Oct 06 2024 9:12A [...] noted in the pelvis. Procedure Note Provider, [facility] [place] - 10/06/2024 * * *Final Report* * [...] IMPRESSION: Right total hip arthroplasty without complication. Speech Clinician: ANDREW Transcribe Date/Time: Oct 06 2024 9:12A Dictated by : RENA MUSE MD This examination was interpreted and the report reviewed and electronically signed by: ISAIAH MONROY MD on Oct 06 2024 9:29AM EST us Aurora RAI-PAMAntoinette Final Result * (ABNORMAL) BASIC METABOLIC PNL (03/19/2023 3:37 AM EDT) Glucose 121(H) 74 - 99 mg/dL 03/19/2023 4:35 AM EDT [facility] Comment: The [place] Diabetes Association (ADA) provides guidance for cutoff [...] Standards of Medical Care in Diabetes 2016, [place] Diabetes Association. Diabetes Care. 2016.39(Suppl 1). BUN 15 7 - 21 mg/dL 03/19/2023 4:35 AM [facility] Creatinine 0.92 0.58 - 0.96 mg/dL 03/19/2023 4:35 AM [facility] Sodium 127(L) 136 - 144 mmol/L 03/19/2023 4:35 AM [facility] Potassium 4.3 3.7 - 5.1 mmol/L 03/19/2023 4:35 AM [facility] Chloride 92(L) 97 - 105 mmol/L 03/19/2023 4:35 AM [facility] CO2 27 22 - 30 mmol/L 03/19/2023 4:35 AM [facility] Anion Gap 8(L) 9 - 18 mmol/L 03/19/2023 4:35 AM [facility] Calcium, Total 7.9(L) 8.5 - 10.2 mg/dL 03/19/2023 4:35 AM [facility] Estimated Glomerular Filtration Rate 67 >=60 mL/min/1. 73m 03/19/2023 4:35 AM [facility] Comment:Estimated Glomerular Filtration Rate (eGFR) is [...] us Aurora Amaya PA-C LABORATORY Final Result [facility] [address] [facility] [place] [address], [place] from Last 3 Months or Most Recently Relevant to Health Maintenance Insurance MEDICARE MEDICARE SUPPLEMENT Advance Directives Documents on File Type Date Recorded Patient Assistant Speech Language Pathologist Expl anation Advance Directive(s) 06/30/2022 1:49 PM Care Teams Wastewater Analyst Relationship Specialty Start Date End Date Gela Bustillo CNP [address] [address] PCP - General Family Medicine 03/10/22 Gela Bustillo CNP [address] [facility] [address] [place] [address] Referring Family Medicine 10/02/21
--- OUTSIDE RECORDS SUMMARY | 2024-11-09 07:21 | XMS_ITS | Patient Health Record ---
Author Organization [facility] C Address [address] [place] [address] Care Team Providers Care Personal Investment Adviser Name Role Phone [facility] Primary Care Provide r Unavailable Allergies Allergen (clinical drug ingredient) Drug/Non Drug Allergy documented on EMR Reaction Allergy Type Onset Date Status ANESTHESIAS (uncoded) stays in the hospital longer than planned Allergy Active Reason For Referral No Information Medications Medication SIG (Take, Route, Frequency, Duration) Notes Start Date End Date Status Lutein *Please review a nd pick correct strength-formulation from [employer]Forman options. If intended option is not shown, [...] Coverage End Date [place] [address] [place] [place] [address] [id number] GRACIE Jones Self - patient is the insured [place] [employer] MED[employer]ARE SUPPLEMENT ADMINISTRAT ION [address] [address] [place] [address] [id number] GRACIE Jones Self - patient is the insured Medical (General) History Medical History History ICD Code Macular Degeneration Surgical History Surgery Date(Month/Year) Spine C-sections x2 Hospitalization History Reason Date(Month/Year) See above
--- OUTSIDE RECORDS SUMMARY | 2024-11-09 07:21 | XMS_ITS | Encounter Summary ---
Author Organization [facility] Address [address] [place] [address] Care Team Providers Care Dietetics Director Name Role Phone Gela Bustillo CNP Unavailable [phone] Gela Bustillo FREDI Primary Care Provider [phone] Source Comments In the event this information is protected by the Federal Confidentiality of Alcohol and Drug AbusePatient Records regulations: The Federal rules restrict any use of the information to criminally investigate or prosecute any alcohol or drug abuse patient.[facility] Reason for Visit * Reason Comments Radiology XR Encounter Details Date Type Department Care Team (Late st Contact Info) Description 04/13/2023 Radiology Radiology [address] [place] [address] Georgia Walls RT(R) Radiology XR Social History [...] often do you attend chur ch or restorationism services? More than 4 times per year 06/29/2022 Do you belong to any clubs o r organizations such as voodoo groups, unions, fraternal or athletic groups, or [...] Answer Date Recorded PHQ-2 score 4 04/06/2023 [facility] [place] of Occupat ional Health - Occupational Stress [...] place to sleep or slept in a senior living (including now)? No 03/18/2023 Area Deprivation Index Answer Date Anthony rded National Score (1-100), lower number is lower ri sk 79 10/14/2022 State Score (1-10), lower number is lower risk 7 10/14/2022 Data from: https://www.neighborhoodatlas.medicine.[facility].edu/. Last address used for calculation [address] [...] Author No 03/19/2023 1:09 PM EDT Tamra Wleler RN documented as of this encounter Mental Status * Because of a physical, mental, or emotional condition, do you have serious difficulty concentrating, remembering, or making decisions? Answer Entry Date Author No 03/19/2023 1:09 PM EDT Tamra Weller RN documented in this encounter Progress [...] 12:30 PM EDT Office Visit Orthopaedics [address] [place], [place] [id number] Aurora Amaya PA-C [address] [place], [place] [phone] 2 month f/u RIGHT HIP PAIN documented as of this encounter Visit Diagnoses Not on filedocumented in this encounter Care Teams Dietetics Director Relationship Specialty Start Date End Date Gela Bustillo CNP [address] [place] [address] PCP - General Family Medicine 03/10/22 Gela Bustillo CNP [address] [address] Referring Family Medicine 10/02/21 documented as of this encounter
--- OUTSIDE RECORDS SUMMARY | 2024-11-09 07:21 | XMS_ITS | Encounter Summary ---
Author Organization [facility] Address [address] [place] [address] Care Team Providers Care Drugless Physician Name Role Phone Gela Bustillo CNP Unavailable [phone] Gela Bustillo FREDI Primary Care Provider [phone] Source Comments In the event this information is protected by the Federal Confidentiality of Alcohol and Drug AbusePatient Records regulations: The Federal rules restrict any use of the information to criminally investigate or prosecute any alcohol or drug abuse patient.[facility] Reason for Visit * Reason Comments Radiology XR Encounter Details Date Type Department Care Team (Late st Contact Info) Description 03/28/2024 Radiology Radiology [address] [place] [address] Henny Kern RT(R) Radiology XR Social History Tobacco Use [...] often do you attend chur ch or protestant services? More than 4 times per year 06/29/2022 Do you belong to any clubs o r organizations such as islam groups, unions, fraternal or athletic groups, or [...] 03/18/2023 PHQ-2 Answer Date Recorded PHQ-2 score 0 03/22/2024 [facility] of Occupat ional Health - Occupational Stress [...] is lower risk 7 10/14/2022 Data from: https://www.neighborhoodatlas.medicine.[facility].edu/. Last address used for calculation [address] [...] Author No 03/19/2023 1:09 PM EDT Tamra Weller, BETSY * Because of a physical, mental, or [...] documented in this encounter Progress Notes * Henny Kern RT(R) - 03/28/2024 8:11 AM EST Radiology Service Progress Note PATIENT NAME: Hayde Jones DATE OF SERVICE: March 28, 2024 TIME: 8:11 AM PATIENT IDENTITY VERIFICATION COMPLETED USING TWO (2) IDENTIFIERS: Name and Date of confirmedby patient verbally. FALL SCREENING: Has the patient had 2 falls in the last year or 1 fall with injury or currently using an Ambulatory Assistive Device (Walker, Cane, Wheelchair, Crutches, etc.)? No PATIENT GENDER DATA: Female. status: : No status: NO. PATIENT RELEVANT IMPLANT DATA REVIEWED: Not Applicable PATIENT PRESENTS WITH AN IMPLANTABLE OR ATTACHED COOK SHORT ORDER: No RADIOLOGY DEPARTMENT: General X-ray: Exam(s) Completed: Pelvis X-Ray: Pelvis General AP PERIPHERAL IV DATA: Not applicable SIGNED BY: RT Sarai(R) March 28, 2024 8:11 AM documented in this encounter Plan of Treatment Upcoming Encounters Date Type Department Care Team (Late st Contact Info) Description 12/07/2024 12:30 PM EDT Office Visit Orthopaedics [address] [place] [address] Aurora Amaya PA-C [address] [place], [place] [phone] 2 month f/u RIGHT HIP PAIN documented as of this encounter Visit Diagnoses Not on filedocumented in this encounter Care Teams Drugless Physician Relationship Specialty Start Date End Date Gela Bustillo CNP [address] [place] [address] PCP - General Family Medicine 03/10/22 Gela Bustillo CNP [address] [facility] [address] [place] [address] Referring Family Medicine 10/02/21 documented as of this encounter
--- OUTSIDE RECORDS SUMMARY | 2024-11-09 07:21 | XMS_ITS | Clinical Summary ---
Author Organization [facility] Address [address] [place] [address] Care Team Providers Care Purifying Plant Operator Name Role Phone Unallocated, Noms Provider Primary Care Provi magali Gela Bustillo OFFICE 365 CONSULTANT Unavailable [phone] Allergies Active Allergy Reactions Criticality Noted Date [...] PODIATRY [address] [place] [address] Catherine Vega DPM Onychomycosis (Primary Dx); Pain in both feet; Corns and callosities 09/26/2024 Telephone [facility] [address] [place] [phone] TereTomeka MA Nirmala 09/26/2024 Refill [facility] [address] [place] [address] Catherine Vega DPM Onychomycosis 09/26/2024 Bamboo flowsheet [facility] [address] [place] [address] Catherine Vega DPM 09/26/2024 Travel from Last [...] CI PT [address] [place] [address] Tamara Peres, PT 12/26/2024 11:30 AM EDT Procedure Visit [facility] [address] [place] [address] Catherine Vega, DPM [address] [facility] [address] [place] [address] Health Maintenance Due Date Last Done Comments [...] Tiana Ayers M.D.06/21/2018 3:36 PM Dictation Location: [facility] Transcribed By: CORNEL 06/21/18 1536 Dictated By: Tiana Ayers MD 06/21/18 1533 Signed By: <Electronically signed by Tiana Ayers MD in OV> 06/21/18 1536 Narrative 06/21/2018 12:00 AM EST PERFORMED AT [facility] LOCATION:[place] [address] Mammography Report Signed Patient: Hayde Jones MR#: [id number] : 1950 Acct:[id number] Age/Sex: 68 / F ADM Date: 06/21/18 [...] Note CONVERSION, GENERIC - 11/21/2022 PERFORMED AT [facility] LOCATION:[place] [id number] Mammography Report Signed Patient: Hayde Jones MR#: [id number] : 1950 Acct:[id number] Age/Sex: 68 / F ADM Date: 06/21/18 Loc: [place] Room: Type: REG CLI Attending Dr: Walter [...] Tiana Ayers M.D.06/21/2018 3:36 PM Dictation Location: [facility] Transcribed By: [facility] 06/21/18 1536 Dictated By: Tiana Ayers MD 06/21/18 1533 Signed By: <Electronically signed by Tiana Ayers MD in OV> Walter Horne IMG BI PROCEDURES Final Result from Last 3 Months or Most Recently Relevant to Health Maintenance Insurance MEDICARE [employer] Care Teams Purifying Plant Operator Relationship Specialty Start Date End Date Unallocated, Noms Provider, [address] [place] [address] PCP - General 01/06/23 Gela Bustillo NP [address] [place] [address] Referring Physician Family Medicine 06/27/24
--- OUTSIDE RECORDS SUMMARY | 2024-11-09 07:22 | XMS_ITS | CCD ---
Author Organization [facility] Care Team Providers Care Business Law Instructor Name Role Phone Unavailable Primary Care Provider Unavailabl e [place] DINKER, Lyndsay Unavailable [phone] [place]wood, Lyndsay Unavailable Agustin Sevilla Unavailable LYNDSAY DUNBAR Primary Care Physician [place] FREDI, Lyndsay Unavailable [place] FREDI, Lyndsay Unavailable [phone] [place] Jc RAIa Primary Care Provider [phone] [place] FREDI, Lyndsay Unavailable [phone] [place] FREDI, Lyndsay Primary Care Provider JC DUNBARA Attending Unavailable EASTERWOOD, LYNDSAY Consulting Unavailable EASTERWOOD, LYNDSAY Primary Care Unavailable EASTERWOOD, LYNDSAY Admitting Unavailable EASTERWOOD, LYNDSAY Consulting Unavailable EASTERWOOD, LYNDSAY Primary Care Unavailable EASTERWOOD, LYNDSAY Admitting Unavailable EASTERWOOD, LYNDSAY Attending Unavailable EASTERWOOD, LYNDSAY Consulting Unavailable EASTERWOOD, LYNDSAY Primary Care Unavailable EASTERWOOD, LYNDSAY Admitting Unavailable EASTERWOOD, LYNDSAY Attending Unavailable Nadir Tolbert Unavailable WINNIE Dunbar Primary Care Provider WINNIE Dunbar Attending Provider [phone] MANJINDER LYNDSAY Primary Care Unavailable ISAIAH ARRIAGA Attending Unavailable ISAIAH ARRIAGA Admitting Unavailable EasterLyndsay clarke CNP Primary Care Provider WINNIE Dunbar Primary Care Provider WINNIE Dunbar Attending Provider [phone] Lyndsay Dunbar Primary Care Unavailable Lyndsay Dunbar Attending Unavailable Lyndsay Dunbar Admitting Unavailable Easterwood, Lyndsay J Primary Care Unavailable Manjinder, Lyndsay Valadez Attending Unavailable Manjinder, Lyndsay Valadez Admitting Unavailable Eastertricia, Lyndsay J Primary Care Unavailable Manjinder, Lyndsay Valadez Attending Unavailable Manjinder, Lyndsay Valadez Admitting Unavailable Unallocated MD, Noms Provider Primary Care Provi magali Unallocated MD, Noms Provider Primary Care Provi magali Manjinder DELONG, Lyndsay Unavailable [phone] Manjinder YARN WRAPPER, Lyndsay Unavailable ALYSON VEGA Attending Unavailable ALYSON VEGA Attending Unavailable ALYSON VEGA Attending Unavailable KOTA BONILLA Attending Unavailable TERESA CROFT Attending Unavailable BEKOTA Valadez Referring Unavailable EVELYN LINK Attending Unavailable BEJKOTA Referring Unavailable EVELYN LINK Attending Unavailable BEJ, KOTA Barnhart Referring Unavailable HUI HOLLIDAY Attending Unavailable BEJ, KOTA Barnhart Referring Unavailable EVELYN LINK Attending Unavailable BEJ, KOTA Barnhart Referring Unavailable TERESA CROFT Attending Unavailable BEJ, KOTA Barnhart Referring Unavailable KELEVELYN HUFF Attending Unavailable BEJ, KOTA Barnhart Referring Unavailable SCOTCH, OLIVE Referring Unavailable EASTERWOOD, LYNDSAY Primary Care Unavailable SCOTCH, OLIVE Attending Unavailable EASTERWOOD, LYNDSAY Primary Care Unavailable SCOTCH, OLIVE Referring Unavailable EASTERWOOD, LYNDSAY Primary Care Unavailable SCOTCH, OLIVE Attending Unavailable SELF Referring Unavailable EASTERWOOD, LYNDSAY Primary Care Unavailable Allergies Allergy Classification Reported Allergen(s) Allergy Type Date of Onset Reaction(s) Facility (17 sources) Mosquito Propensity to adverse reactions itchy bump for 10 days Application Security Other (20 sources) anesthesia Propensity to adverse reactions 02-08-20 vomiting [facility] (1 source) Acetaminophen / HYDROcodone; Translations: [acetaminophen-hy drocodone] Drug Allergy Nausea (finding) [facility] (20 sources) oxyCODONE; Translations: [oxycodone] Drug Allergy 01-07-20 Nausea (finding), Nausea Only [facility] (7 sources) pain medication Propensity to adverse reactions 11-15-19 22 Nausea [facility] (20 sources) Mosquito (Diagnostic) Drug allergy 01-07-20 23 Swelling [facility] (20 sources) Acetaminophen / HYDROcodone Drug Allergy 01-07-20 Nausea Only [facility] (20 sources) Propofol Drug Allergy 01-07-20 23 Unknown [facility] (1 source) Cortisone Drug Allergy 05-19-19 Difficulty Breathing [facility] Comment on above: with hip injection Medications Current Medications Medication Drug Class(es) Dates Sig (Normalized) Sig (Original) amoxicillin 500 mg oral tablet (18 sources) Penicillin-class Antibacterial Start: 01-11-2024 Amoxicillin 500 mg tablet two tabs one hour prior to dental procedure 2 tablet 1 01/11/2024 Active Start: 08-11-2023 End: 09-07-2023 Amoxicillin 500 mg tablet tw o tabs one hour prior to dental procedure 2 tablet 1 01/11/2024 Active Start: 04-21-2018 End: 03-05-2019 take 1 mg by mouth every eight hours Amoxicillin 500 mg capsule Discontinued 1 MG PO Q8H April 21, 2018 12:00am March 05, 2019 1:28pm Start: 04-21-2018 End: 03-05-2019 take 1 mg by mouth every eight hours Amoxicillin Discontinued 1 MG PO Q8H April 21, 2018 1:00am March 05, 2019 2:28pm Comment on above: two tabs one hour pr ior to dental procedure benoxinate hydrochloride 4 mg/ml / fluorescein sodium 2.5 mg/ml ophthalmic solution (1 source) Diagnostic Dye Start: 10-31-2021 End: 11-01-2021 fluorescein-benoxinate 0.25-0.4 % 1 Drop (FLURESS) Cholecalciferol (20 sources) Vitamin D Start: 07-31-2023 cholecalciferol (vitamin D3) Active PO July 30, 2023 11:00pm Start: 07-31-2023 cholecalcifero l (vitamin D3) Active PO July 31, 2023 12:00am Start: 02-08-2020 End: 07-31-2023 take 1 capsule by mouth once daily Cholecalciferol (Vitamin D3) (Vitamin D3) 50 mcg (2,000 unit) Capsule Discontinued 2000 UNIT PO Daily February 07, 2020 11:00pm July 31, 2023 7:24am Comment on above: Take 2,000 Units by mouth once daily. ciprofloxacin 500 mg oral tablet (20 sources) Quinolone Antimicrobial Start: 02-24-20 End: 06-27-19 take 1 tablet by mouth in the morning ciprofloxacin (Cipro) 500 MG tablet Take 500 mg by mouth in the morning and 500 mg before bedtime. 02/23/2023 06/27/2024 Discontinued Start: 03-17-2022 End: 05-20-2022 take 1 drop(s) into the eye(s) four times daily ciprofloxacin HCl (CILOXAN) 0.3 % ophthalmic solution Use 1 Drop in the right eye four times daily. 0 04/14/2022 05/20/2022 Discontinued Comment on above: Use 1 Drop in the le ft eye four times daily. Use 1 Drop in the ri ght eye four times daily. Take 1 tablet by lewis two times a day for 5 days. efinaconazole 100 mg/ml topical solution (4 sources) Azole Antifungal Start: 09-26-2024 End: 09-26-2024 Efinaconazole (Jublia) 10 % solution Indications: Onychomycosis Apply 1 application topically Daily 10 mL 3 09/26/2024 09/26/2024 Discontinued Eye Vitamins (17 sources) Eye Vitamins Act sherri fluocinonide 0.5 mg/ml topical solution (2 sources) Corticosteroid Start: 03-10-2022 End: 04-17-2022 fluocinonide (LIDEX) 0.05 % external solution APPLY TO SCALP ONCE DAILY NEEDED FOR ITCHING MON-FRI 0 03/10/2022 04/17/2022 Discontinued Comment on above: APPLY TO SCALP ONCE DAILY NEEDED FOR ITCHING MON-FRI ketoconazole 20 mg/ml medicated shampoo (10 sources) Azole Antifungal End: 04-17-2022 ketoconazole (NIZORAL) 2 % shampoo Ketoconazole 2 % Apply to scalp twice weekly until symptoms resolve Externally Twice a week for 60 days Active 0 04/17/2022 Discontinued Ketoconazole 2 % Apply to scalp twice weekly until symptoms resolve Externally Twice a week for 60 days Active Comment on above: Ketoconazole 2 % Berta ly to scalp twice weekly until symptoms resolve Externally Twice a week for 60 days Active ketorolac tromethamine 5 mg/ml ophthalmic solution (20 sources) Nonsteroidal Anti-inflammatory Drug, Cyclooxygenase Inhibitor Start: 03-17-20 End: 06-27-19 take 1 drop(s) into the eye(s) four times daily ketorolac (Acular) 0.5 % ophthalmic solution USE 1 DROP IN THE RIGHT EYE FOUR TIMES DAILY. 04/14/2022 06/27/2024 Discontinued Comment on above: Use 1 Drop in the le ft eye four times daily. Use 1 Drop in the ri ght eye four times daily. Magic Mouthwash W/Lidocaine 240 Ml Bottle (2 sources) Start: 02-08-20 take 5 mL by mouth three times daily Magic Mouthwash W/Lidocaine 240 Ml Bottle Active 0 PO Three times daily 240 February 08, 2024 12:00am SWISH AND SPIT 5ML TID X 16 DAYS, diphenhydramine 12.5 mg/5 mL orally three times daily; Magnesium (1 source) Start: 05-19-19 magnesium Active PO 2024 12:00am phenylephrine hydrochloride 25 mg/ml ophthalmic solution (1 source) alpha-1 Adrenergic Agonist Start: 11-01-19 End: 11-02-19 PHENYLephrine 2.5 % 1 Drop (AK-DILATE, RONALD-SYNEPHRINE) proparacaine hydrochloride 5 mg/ml ophthalmic solution (1 source) Local Anesthetic Start: 11-01-19 End: 11-02-19 proparacaine 0.5 % 1 Drop (ALCAINE) triamcinolone acetonide 1 mg/ml topical cream (20 sources) Corticosteroid Start: 03-10-20 End: 04-17-20 triamcinolone acetonide (KENALOG) 0.1 % cream APPLY TO AFFECTED AREA ON TRUNK TWICE A DAY MON-FRI OFF ON WEEKEND THEN NEEDED AVOID FACE/GROIN 0 03/10/2022 04/17/2022 Discontinued Start: 01-13-2020 Kenalog -40 mg Dec, 10 mg Comment on above: APPLY TO AFFECTED AR EA ON TRUNK TWICE A DAY MON-FRI OFF ON WEEKEND THEN NEEDED AVOID FACE/GROIN tropicamide 10 mg/ml ophthalmic solution (1 source) Anticholinergic Start: 11-01-19 End: 11-02-19 tropicamide 1 % 1 Drop (MYDRIACYL) Turmeric Curcumin (9 sources) take 1 capsule by mouth once daily Turmeric Curcumin 1 capsule, orally, once a day Active Turmeric extract (19 sources) Start: 07-31-19 turmeric Active PO July 30, 2023 11:00pm Start: 07-31-2023 turmeric Activ e PO July 31, 2023 12:00am take 1 capsule by mo uth once daily turmeric 400 mg cap Take 1 capsule by mouth once daily. Active take 1 capsule by mo uth once daily turmeric 400 mg cap Take 1 capsule by mouth once daily. 0 Active Comment on above: Take 1 capsule by mo uth once daily. Vitamin D (20 sources) Start: 12-25-2021 Vitamin D International_Unit, Oral, qWeek, Refills(s) 0 Start Date: 12/25/21 Status: Ordered take 1 capsule by mouth once mayda ly Vitamin D 1 capsule, orally, once a day Active Vitamin D Active Completed/Discontinued Medications Medication Drug Class(es) Dates Sig (Normalized) Sig (Original) acetaminophen 500 mg oral tablet (7 sources) Start: 03-19-2023 End: 09-23-2023 take 2 tablets by mouth every eight hours as needed acetaminophen (TYLENOL) 500 mg tablet Take 2 tablets by mouth every 8 hours as needed for pain. Percocet has Acetaminophen. You are not to exceed 4000 mg Acetaminophen dose in a day from all sources. 03/19/2023 09/23/2023 Discontinued Comment on above: Take 2 tablets by mo uth every 8 hours as needed for pain. Percocet has Acetaminophen. You are not to exceed 4000 mg Acetaminophen dose in a day from all sources. acetaminophen 325 mg / HYDROcodone bitartrate 5 mg oral tablet (7 sources) Opioid Agonist Start: 03-19-2023 End: 09-23-2023 take 1 tablet by mouth every six hours as needed HYDROcodone-acetam inophen (NORCO) 5-325 mg per tablet Indications: Acute postoperative pain of right hip , S/P hip replacement, right Take 1 tablet by mouth every 6 hours as needed. 28 tablet 03/19/2023 09/23/2023 Discontinued Comment on above: Take 1 tablet by lewis every 6 hours as needed. antiox #8/om3/dha/epa/lut/ zeax (PRESERVISION AREDS 2, OMEGA-3, ORAL) (13 sources) End: 04-17-2022 antiox #8/om3/dha/epa/lut /zeax (PRESERVISION AREDS 2, OMEGA-3, ORAL) Take by mouth. 04/17/2022 Discontinued End: 04-17-2022 antiox #8/om3/dha/epa/lut/ze ax (PRESERVISION AREDS 2, OMEGA-3, ORAL) Take by mouth. 0 04/17/2022 Discontinued antiox #8/om3/dh a/epa/lut/zeax (PRESERVISION AREDS 2, OMEGA-3, ORAL) Take by mouth. 0 Active Comment on above: Take by mouth. Ascorbic Acid / POLYETHYLENE GLYCOL 3350 / Potassium Chloride / Sodium Ascorbate / Sodium Chloride / sodium sulfate (16 sources) Osmotic Laxative, Vitamin C Start: 10-21-2021 End: 03-07-2022 PLENVU 140-9-5.2 gram powder in packet 10/21/2021 03/07/2022 Discontinued (Course of therapy completed) Start: 10-21-2021 End: 03-07-2022 PLENVU 140-9-5.2 gram powder in packet Start: 10-21-2021 Plenvu 140 GM dose 1 pouch at 4pm, dose 2 pouch A & B at 11pm Orally twice a day for 1 days [id number] PCN: [id number] GROUP:[id number] ID:[id number] Oct, Not-Taking Start: 10-21-2021 PLENVU 140-9-5 .2 gram powder in packet Start: 10-21-2021 Plenvu 140 GM dose 1 pouch at 4pm, dose 2 pouch A & B at 11pm Orally twice a day for 1 days BIN:[id number] PCN: [id number] GROUP:[id number] ID:[id number] Oct, Active aspirin 81 mg delayed release oral tablet (6 sources) Platelet Aggregation Inhibitor, Nonsteroidal Anti-inflammatory Drug Start: 03-19-2023 End: 09-23-2023 take 1 tablet by mouth twice daily aspirin, enteric coated (ASPIRIN, ENTERIC COATED) 81 mg EC tablet Take 1 tablet by mouth two times a day for 28 days. 56 tablet 03/19/2023 09/23/2023 Discontinued Comment on above: Take 1 tablet by lewis two times a day for 28 days. atovaquone 250 mg / proguanil hydrochloride 100 mg oral tablet (4 sources) Antimalarial, Antiprotozoal Start: 10-29-2023 End: 02-08-2024 take 1 tablet by mouth once daily Atovaquone-Progua nil 250-100 mg tablet Discontinued 0 PO .COMPLEX 26 October 28, 2023 11:00pm February 08, 2024 2:03pm take 1 tab once daily x2 days before exposure, during time in area, and x7 days after leaving area PO carbamide peroxide 65 mg/ml otic solution (5 sources) Debrox 6.5 % 5 drops into affected ear Otic Twice a day Not-Taking celecoxib 100 mg oral capsule (20 sources) Nonsteroidal Anti-inflammatory Drug Start: 02-18-2023 End: 06-27-2024 take 1 capsule by mouth once daily celecoxib (CELEBREX) 100 mg capsule Take 1 capsule by mouth once daily. 02/18/2023 09/23/2023 Discontinued Start: 09-24-2022 End: 02-18-2023 take 1 capsule by mouth twice daily celecoxib (CELEBREX) 100 mg capsule Take 1 capsule by mouth twice daily. 180 capsule 3 09/24/2022 02/18/2023 Discontinued (Adjust Sig - Block E-Cancel) Start: 02-12-2022 End: 07-27-2022 take 1 capsule by mouth twice daily celecoxib (CELEBREX) 200 mg capsule Take 1 capsule by mouth twice daily. 90 capsule 2 04/28/2022 07/27/2022 Active Start: 12-25-2021 Celebrex Oral, Refills(s) 0 Start Date: 12/25/21 Status: Ordered Start: 10-25-2021 End: 01-23-2022 take 1 capsule by mouth twice daily celecoxib (CELEBREX) 200 mg capsule Take 1 capsule by mouth twice daily. 60 capsule 2 10/25/2021 01/23/2022 take 1 capsule by [facility] twice daily celecoxib (CELEBREX) 100 mg capsule Take 100 mg by mouth twice daily. 0 Active Comment on above: Take 1 capsule by [facility] twice daily. Take 200 mg by mouth twice daily. Take 100 mg by mouth twice daily. Take 1 capsule by [facility] once daily. erythromycin 0.005 mg/mg ophthalmic ointment (7 sources) Macrolide, Macrolide Antimicrobial Start: 09-02-2022 End: 02-18-2023 erythromycin (ROMYCIN) 5 mg/gram (0.5 %) ophthalmic ointment Use 1 application in both eyes four times daily. Apply 1/2 inch ribbon per application TO OPERATIVE SITE 09/02/2022 02/18/2023 Discontinued (Course of therapy completed) Start: 09-02-2022 erythromycin ( ROMYCIN) 5 mg/gram (0.5 %) ophthalmic ointment Use 1 application in both eyes four times daily. Apply 1/2 inch ribbon per application TO OPERATIVE SITE 0 09/02/2022 Active Start: 03-17-2022 End: 04-17-2022 erythromycin (ROMYCIN) 5 mg/ gram (0.5 %) ophthalmic ointment Use 1 application in the right eye daily at bedtime. Apply 1/2 inch ribbon per application 0 04/14/2022 04/17/2022 Discontinued Comment on above: Use 1 application in the left eye daily at bedtime. Apply 1/2 inch ribbon per application Use 1 application in the right eye daily at bedtime. Apply 1/2 inch ribbon per application Use 1 application in both eyes four times daily. Apply 1/2 inch ribbon per application TO OPERATIVE SITE Magic Mouthwash W/Lidocaine 240 Ml Bottle 240 mL bottle (1 source) Start: 2023 End: 2024 take 5 mL by mouth three times daily Magic Mouthwash W/Lidocaine 240 Ml Bottle 240 mL bottle Discontinued 0 PO Three times daily 240 February 07, 2024 11:00pm 2024 10:35am SWISH AND SPIT 5ML TID X 16 DAYS, diphenhydramine 12.5 mg/5 mL orally three times daily; methocarbamol 500 mg oral tablet (7 sources) Muscle Relaxant Start: 2022 End: 2023 take 1 tablet by mouth every eight hours as needed methocarbamol (ROBAXIN) 500 mg tablet Take 1 tablet by mouth three times a day as needed (Muscle spasm). 10 tablet 03/19/2023 09/23/2023 Discontinued Comment on above: Take 1 tablet by lewis th three times a day as needed (Muscle spasm). methylPREDNISolone 4 mg oral tablet (7 sources) Corticosteroid Start: 2017 End: 2018 Methylprednisolone 4 mg tablets,dose pack Discontinued 1 MG PO As Directed April 21, 2018 12:00am March 05, 2019 1:28pm Start: 04-21-2018 End: 03-05-2019 Methylprednisolone Discontin ued 1 MG PO As Directed April 21, 2018 1:00am March 05, 2019 2:28pm omega-3 fatty acids (5 sources) Start: 10-29-2023 End: 02-08-2024 omega-3 fatty acids Disconti nued PO October 28, 2023 11:00pm February 08, 2024 2:03pm Start: 10-29-2023 End: 02-08-2024 omega-3 fatty acids Disconti nued PO October 29, 2023 12:00am February 08, 2024 3:03pm Start: 10-29-2023 omega-3 fatty acids Active PO October 29, 2023 12:00am prednisoLONE acetate 10 mg/ml ophthalmic suspension (20 sources) Corticosteroid Start: 04-14-2022 End: 02-18-2023 prednisoLONE acetate (PRED FORTE, ECONOPRED PLUS) 1 % ophthalmic suspension Use 1 Drop in both eyes four times daily. 10 mL 5 04/14/2022 02/18/2023 Discontinued (Course of therapy completed) Start: 03-17-2022 End: 04-14-2022 prednisoLONE acetate (PRED F ORTE, ECONOPRED PLUS) 1 % ophthalmic suspension Use 1 Drop in both eyes four times daily. 10 mL 5 04/14/2022 Active Comment on above: Use 1 Drop in the le ft eye four times daily. Use 1 Drop in both e yes four times daily. sennosides, intermediate 8.6 mg oral tablet (7 sources) Start: 03-19-2023 End: 09-23-2023 take 2 tablets by mouth once daily at bedtime senna (SENOKOT) 8.6 mg tab Take 2 tablets by mouth daily at bedtime. 10 tablet 03/19/2023 09/23/2023 Discontinued Comment on above: Take 2 tablets by mo [facility] daily at bedtime. sodium chloride 0.342 meq/ml ophthalmic solution (20 sources) End: 04-17-2022 take 1 drop(s) into the eye(s) every four hours as needed sodium chloride (MIKEY 128) 2 % ophthalmic solution 1 Drop every 4 hours as needed. 04/17/2022 Discontinued End: 04-17-2022 sodium chloride (MIKEY 128) 5 % ophthalmic ointment once daily. 04/17/2022 Discontinued Comment on above: 1 Drop every 4 hours as needed. once daily. traMADol hydrochloride 50 mg oral tablet (1 source) Opioid Agonist Start: take 1 tablet by mouth every six hours as needed for pain traMADol (ULTRAM) 50 mg tablet Indications: History of Descemet membrane endothelial keratoplasty (DMEK) Take 1 tablet by mouth every 6 hours as needed for pain. 10 tablet 0 03/17/2022 Active Comment on above: Take 1 tablet by [facility] every 6 hours as needed for pain. Vit C-E-Zinc Zbd-Yrdnbo-Tmqroj ([facility]) 50 mg-15 unit- 4.5 mg-2.5 mg Tablet,Chewable (7 sources) Start: End: take 2 tablets by mouth once daily Vit C-E-Zinc Mzs-Ivyppw-Atrqad ([facility]) 50 mg-15 unit- 4.5 mg-2.5 mg Tablet,Chewable Discontinued 2 TAB PO Daily November 13, 2021 11:00pm July 31, 2023 7:24am Start: 11-14-2021 End: 07-31-2023 take 2 tablets by mouth once daily Vit C-E-Zinc Xyz-Prdjam-Szjkzy ([facility]) 50 mg-15 unit- 4.5 mg-2.5 mg Tablet,Chewable Discontinued 2 TAB PO Daily November 14, 2021 12:00am July 31, 2023 8:24am Start: 11-14-2021 take 2 tablets by mo uth once daily Vit C-E-Zinc Ueu-Tejoru-Awwvvn [facility] 50 mg-15 unit- 4.5 mg-2.5 mg Tablet,Chewable Active 2 TAB PO Daily November 14, 2021 12:00am Vitamin K (17 sources) take 1 capsule by mo uth once daily Vitamin K 1 capsule, orally, once a day Not-Taking take 1 capsule by mouth once mayda ly Vitamin K 1 capsule, orally, once a day Active Vitamin K Active vitamin k1 5 mg oral tablet (20 sources) Warfarin Reversal Agent, Vitamin K Start: 12-25-2021 End: 02-18-2023 phytonadione, vitamin K1, (MEPHYTON) 5 mg tablet Take 5 mg by mouth. 12/25/2021 02/18/2023 Discontinued (Course of therapy completed) Start: 02-08-2020 End: 11-14-2021 Phytonadione (Vitamin K1) (V itamin K) 1 mg/0.5 mL Solution Discontinued SOLUTION February 07, 2020 11:00pm November 14, 2021 6:25am Start: 02-08-2020 End: 11-14-2021 Phytonadione (Vitamin K1) (V itamin K) 1 mg/0.5 mL Solution Discontinued SOLUTION February 08, 2020 12:00am November 14, 2021 7:25am Comment on above: Take 5 mg by mouth. vitamin k2 0.1 mg oral capsule (7 sources) Start: 11-14-2021 End: 07-31-2023 take 1 capsule by mouth once daily Vitamin K2 100 mcg Capsule Discontinued 100 MCG PO Daily November 13, 2021 11:00pm July 31, 2023 7:24am Start: 11-14-2021 End: 07-31-2023 take 100 ug by mouth once daily Vitamin K2 Discontinued 100 MCG PO Daily November 14, 2021 12:00am July 31, 2023 8:24am Start: 11-14-2021 take 100 ug by mouth once daily Vitamin K2 Active 100 MCG PO Daily November 14, 2021 12:00am Problems Active Problems Problem Classification Problem Date Documented Date Episodic/Chronic Administrative/social admission (2 sources) Other specified counseling; Translations: [Encounter for health counseling related to travel] Onset: 10-31-2021 Resolved: 10-31-2021 Episodic Anxiety disorders (3 sources) Acute stress disorder; Translations: [Acute stress reaction] 02-09-2024 Chronic Bacterial infection; unspecified site (1 source) Methicillin resistant Staphylococcus aureus infection; Translations: [Methicillin resistant Staphylococcus aureus infection, unspecified site] 12-22-2022 Episodic Cataract (5 sources) Nuclear senile cataract; Translations: [Age-related nuclear cataract, bilateral] Chronic Chronic kidney disease (20 sources) Chronic kidney disease stage 3; Translations: [Stage 3 chronic kidney disease, unspecified whether stage 3a or 3b CKD] Onset: 12-09-2021 Chronic Complication of device; implant or graft (6 sources) 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; 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] 07-31-2023 Episodic Diseases of mouth; excluding dental (3 sources) Lesion of oral mucosa; Translations: [Unspecified lesions of oral mucosa] 02-09-2024 Episodic Disorders of lipid metabolism (20 sources) Hyperlipidemia; Translations: [Hyperlipidemia, unspecified] Onset: 04-06-2021 Resolved: 09-30-2021 Chronic Esophageal disorders (10 sources) Gastroesophageal reflux disease; Translations: [Gastro-esophageal reflux disease without esophagitis] 07-31-2023 Chronic Essential hypertension (19 sources) Essential hypertension; Translations: [Essential (primary) hypertension] 07-31-2023 Chronic Genitourinary symptoms and ill-defined conditions (1 source) Increased frequency of urination; Translations: [Frequency of micturition] 12-23-2022 Episodic Hypertension with complications and secondary hypertension (8 sources) Chronic kidney disease due to hypertension; Translations: [Hypertensive chronic kidney disease with stage 1 through stage 4 chronic kidney disease, or unspecified chronic kidney disease] Chronic Mycoses (3 sources) Onychomycosis; Translations: [Tinea unguium] 06-27-2024 Episodic Nonmalignant breast conditions (20 sources) Fibrocystic disease of breast; Translations: [Diffuse cystic mastopathy of unspecified breast] 07-31-2023 Chronic Osteoarthritis (20 sources) Osteoarthritis of right hip joint; Translations: [Unilateral primary osteoarthritis, right hip] Onset: 12-25-2021 Chronic Other aftercare (18 sources) Patient encounter status; Translations: [Aftercare following joint replacement surgery] Onset: 04-13-2023 04-06-2023 Chronic Other aftercare (1 source) Aftercare following joint replacement surgery; Translations: [Aftercare following right hip joint replacement surgery] Onset: 04-13-2023 Chronic Other bone disease and musculoskeletal deformities (4 sources) Segmental and somatic dysfunction; Translations: [Segmental and somatic dysfunction of thoracic region] Onset: 12-25-2021 Episodic Other bone disease and musculoskeletal deformities (1 source) Somatic dysfunction of lower limb 12-25-2021 Episodic Other bone disease and musculoskeletal deformities (1 source) Somatic dysfunction of lumbar region 12-25-2021 Episodic Other bone disease and musculoskeletal deformities (1 source) Somatic dysfunction of sacral region 12-25-2021 Episodic Other bone disease and musculoskeletal deformities (1 source) Somatic dysfunction of thoracic region 12-25-2021 Episodic Other connective tissue disease (3 sources) Presence of right artificial hip joint; Translations: [Hip joint replacement] Onset: 03-18-2023 02-08-2024 Chronic Other connective tissue disease (18 sources) History of repair of hip joint; Translations: [Presence of right artificial hip joint] Onset: 03-18-2023 03-18-2023 Chronic Other connective tissue disease (20 sources) Tear of right rotator cuff; Translations: [Unspecified rotator cuff tear or rupture of right shoulder, not specified as traumatic] 07-31-2023 Episodic Other connective tissue disease (2 sources) Pain in both feet; Translations: [Pain in right foot] 06-27-2024 Episodic Other ear and sense organ disorders (10 sources) Sensorineural hearing loss, bilateral; Translations: [Sensorineural hearing loss, bilateral] 07-31-2023 Chronic Other ear and sense organ disorders (1 source) Impacted cerumen, unspecified ear Episodic Other eye disorders (1 source) Ptosis of eyelid; Translations: [Unspecified ptosis of bilateral eyelids] Episodic Other eye disorders (1 source) Bilateral myogenic ptosis of eyes; Translations: [Myogenic ptosis of bilateral eyelids] Episodic Other eye disorders (1 source) Dermatochalasis of right upper eyelid; Translations: [Dermatochalasis] Episodic Other inflammatory condition of skin (12 sources) Acute seborrheic dermatitis; Translations: [Seborrheic dermatitis, unspecified] Episodic Other nervous system disorders (20 sources) Anterior interosseous nerve lesion; Translations: [Other lesions of median nerve, unspecified upper limb] 07-31-2023 Chronic Other nervous system disorders (20 sources) Chronic pain; Translations: [Other chronic pain] Onset: 12-25-2021 Chronic Other nervous system disorders (4 sources) 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; Translations: [Other lesions of median nerve, left upper limb] Chronic Other nervous system disorders (3 sources) Right-sided piriformis syndrome; Translations: [Lesion of sciatic nerve, right lower limb] Onset: 03-28-2024 03-28-2024 Chronic Other nervous system disorders (1 source) Lesion of sciatic nerve, right lower limb; Translations: [Piriformis syndrome, right] Onset: 03-28-2024 Chronic Other nervous system disorders (1 source) Other acute postprocedural pain; Translations: [Acute postoperative pain of right hip] Onset: 03-18-2023 Episodic Other nervous system disorders (10 sources) Paresthesia; Translations: [Paresthesia of skin] 07-31-2023 Episodic Other non-traumatic joint disorders (1 source) Rotator cuff arthropathy of right shoulder; Translations: [Other specific arthropathies, not elsewhere classified, right shoulder] Chronic Other non-traumatic joint disorders (1 source) Arthritis of hip 12-25-2021 Chronic Other non-traumatic joint disorders (1 source) Arthritis of shoulder region joint 12-25-2021 Chronic Other non-traumatic joint disorders (20 sources) Pain in right hip joint; Translations: [Pain in right hip] Episodic Other non-traumatic joint disorders (2 sources) Pain in right hip; Translations: [Acute postoperative pain of right hip] Onset: 09-30-2021 Resolved: 09-30-2021 Episodic Other nutritional; endocrine; and metabolic disorders (1 source) Overweight in adulthood with body mass index of 25 or more but less than 30; Translations: [Body mass index (BMI) 26.0-26.9, adult] Onset: 12-25-2021 Episodic Other nutritional; endocrine; and metabolic disorders (7 sources) History of clinical finding in subject; Translations: [Personal history of other endocrine, nutritional and metabolic disease] 07-31-2023 Episodic Other screening for suspected conditions (not mental disorders or infectious disease) (9 sources) Encounter for screening mammogram for malignant neoplasm of breast; Translations: [Encounter for screening for malignant neoplasm of colon] Onset: 09-30-2021 Resolved: 10-17-2021 Episodic Other skin disorders (2 sources) Callosity; Translations: [Corns and callosities] 06-27-2024 Episodic Residual codes; unclassified (1 source) Memory impairment; Translations: [Other amnesia] Episodic Residual codes; unclassified (1 source) Postoperative state; Translations: [Other specified postprocedural states] Episodic Residual codes; unclassified (2 sources) Pain; Translations: [Pain, unspecified] 10-25-2021 Episodic Spondylosis; intervertebral disc disorders; other back problems (20 sources) Degeneration of thoracic intervertebral disc; Translations: [Other intervertebral disc degeneration, thoracic region] Onset: 09-04-2023 Chronic Spondylosis; intervertebral disc disorders; other back problems (20 sources) Sciatica; Translations: [Sciatica, right side] Onset: 09-30-2021 Resolved: 09-30-2021 Episodic Sprains and strains (7 sources) Strain of neck muscle; Translations: [Strain of muscle, fascia and tendon at neck level, initial encounter] 03-05-2019 Episodic Comment on above: Problem List clean-u p per request of Phys. EHR Cmte Superficial injury; contusion (20 sources) Insect bite (nonvenomous) of scalp, initial encounter; Translations: [Tick bite] Onset: 09-30-2021 Resolved: 12-03-2021 Episodic Comment on above: Problem List clean-u p per request of Phys. EHR Cmte Unclassified (1 source) CHRN KIDNEY DISEASE STG 3 UNSP; Translations: [CHRN KIDNEY DISEASE STG 3 UNSP] Onset: 12-09-2021 Unclassified (1 source) Encounter for screening mammogram for malignant neoplasm of breast; Translations: [Encounter for screening mammogram for malignant neoplasm of breast] Onset: 10-31-2022 Past or Other Problems Problem Classification Problem Date Documented Date Episodic/Chronic Cardiac dysrhythmias (11 sources) Sinus bradycardia; Translations: [Bradycardia, unspecified] Onset: 03-17-2023 03-17-2023 Episodic Chronic kidney disease (3 sources) Chronic kidney disease Onset: 09-30-2021 Resolved: 11-26-2021 Conditions associated with dizziness or vertigo (20 sources) Dizziness; Translations: [Dizziness and giddiness] Onset: 09-30-2021 Resolved: 09-30-2021 Episodic Nausea and vomiting (13 sources) Postoperative nausea and vomiting; Translations: [Nausea with vomiting, unspecified] Onset: 02-18-2023 02-18-2023 Episodic Other circulatory disease (17 sources) Elevated blood-pressure reading without diagnosis of hypertension; Translations: [Elevated blood-pressure reading, without diagnosis of hypertension] Onset: 09-02-2022 Episodic Other circulatory disease (11 sources) Low blood pressure; Translations: [Other hypotension] Onset: 03-17-2023 03-17-2023 Episodic Other connective tissue disease (1 source) Unspecified rotator cuff tear or rupture of right shoulder, not specified as traumatic Onset: 09-30-2021 Resolved: 09-30-2021 Episodic Other connective tissue disease (7 sources) Trochanteric bursitis of right hip; Translations: [Trochanteric bursitis, right hip] Onset: 09-23-2023 09-23-2023 Episodic Other connective tissue disease (20 sources) Spasm of cervical paraspinous muscle; Translations: [Other muscle spasm] Onset: 02-16-2024 02-16-2024 Episodic Other connective tissue disease (1 source) Trochanteric bursitis, right hip; Translations: [Trochanteric bursitis of right hip] Onset: 09-23-2023 Episodic Other eye disorders (20 sources) Fuchs' corneal dystrophy; Translations: [Fuchs' corneal dystrophy of both eyes] Onset: 03-25-2022 Episodic Other inflammatory condition of skin (1 source) Seborrheic dermatitis, unspecified Onset: 12-03-2021 Resolved: 12-03-2021 Episodic Other nervous system disorders (11 sources) Hip pain; Translations: [Other acute postprocedural pain] Onset: 03-18-2023 03-18-2023 Episodic Other nervous system disorders (2 sources) Paresthesia of skin; Translations: [Paresthesia of skin] Onset: 04-21-2023 Episodic Respiratory failure; insufficiency; arrest (adult) (9 sources) Respiratory failure; insufficiency; arrest (adult); Translations: [Corneal transplant failure, bilateral] Results Test Name Value Interpretation Reference Range Facility [facility] 10-06-2024 CNOV Office Visit (LOORRM ) GRACIE JONES ([id number]) 1950 F Date Time Provider Department 10/06/24 9:00 AM OLIVE AMAYAORRJorge During your visit today, we recorded the following information about you: Olive Amaya PA-C 10/06/2024 10:09 AM Signed - Apply ice to the right hip bursa area for 15-20 minutes after activity, during times you?re sitting before bedtime as needed; avoid using heat. - Avoid direct pressure on the side of your right hip by sitting on a firm pillow in cars, soft chairs, or at your desk. - When you lie on your side, place a pillow between your knee and foot (or use two pillows) to keep the leg from crossing and stretching the hip. - Continue your hip-stretching exercises every day; use pain as your guide--stop or reduce weight if an exercise hurts while you?re doing it. - After exercising, ice the hip to help reduce irritation and inflammation. - At the gym, lower the weight and increase repetitions on hip machines; work one leg at a time to help each side strengthen evenly. - Schedule a physical therapy evaluation now (it may take up to two weeks to get in) for a tailored exercise program and to discuss dry needling to help break up scar tissue and relieve bursitis. Olive Amaya PA-C 10/06/2024 10:18 AM Signed Recording using [employer] software for draft documentation of the visit was discussed with the patient/authorized branch service representative; all questions welcomed and answered. Patient/authorized branch service representative agreed to proceed Chief complaint: Gracie is a 74-year-old female presenting for evaluation of right hip pain. HISTORY: Gracie is a 74 year old female. Right Hip Pain: - Pain localized to the right lateral hip, present for a couple of months. - Initially resolved with exercises but has recurred despite continued adherence. - Describes pain as constant, with occasional sharp pains at night. - Aggravated by lying on either side; prefers lying on her back. - Pain sometimes radiates to the knee at night; denies numbness or tingling. - No pain in the left hip or lower back; has chronic middle back pain. - No pain with ambulation or rising from a chair; reports good hip function. - Uses Voltaren gel with some relief. - Avoids sitting for prolonged periods due to discomfort. - Engages in regular exercise, including gym workouts three times a week. - Experiences discomfort with certain exercises, particularly hip extensions. - Wears supportive footwear during activities. Patient has a past medical history, medications and allergies were reviewed. No other musculoskeletal complaints ROS : Musculoskeletal: (+) right hip pain, (+) nighttime hip pain, (+) sharp pain radiating to knee, (+) pain with side lying, (+) middle back pain, (-) pain with walking, (-) left hip pain Neurological: (-) numbness, (-) tingling PAST MEDICAL HISTORY Diagnosis Date Stage 3 chronic kidney disease (HCC) 12/09/2021 PAST SURGICAL HISTORY Procedure Laterality Date SECTION HX x2 COLONOSCOPY SCREENING KERATOPLASTY ENDOTHELIAL Right 04/14/2022 KERATOPLASTY ENDOTHELIAL Left 03/17/2022 PAST SURGICAL HISTORY OF BLEPHAROPLASTY UPPER TOTAL HIP REPLACEMENT Right XR CERVICAL FUSION OR Medications reviewed. ALLERGIES No Known Allergies Social History Tobacco Use Smoking status: Former Current packs/day: 0.00 Average packs/day: 0.2 packs/day for 1 year (0.2 ttl pk-yrs) Types: Cigarettes Start date: 1972 Quit date: 1973 Years since quittin.4 Smokeless tobacco: Never Substance Use Topics Alcohol use: Yes Comment: occasionally Drug use: Not Currently Comment: denies tx for drug/alcohol abuse in the past. EXAMINATION: On physical exam today, - Musculoskeletal: - Left Hip: - No pain with passive ROM. - ROM: Full. - Right Hip: - Tenderness over greater trochanter. - ROM: Flexion to 120 degrees with mild discomfort in gluteal region; adduction to 30 degrees, abduction to 50 degrees, internal rotation to 70 degrees, external rotation to 30 degrees, all without pain. - Gait: Normal. RADIOGRAPHS: Personally reviewed by myself demonstrating Imaging: - X-ray: No abnormalities noted. The right hip replacement appears intact with normal bone quality. IMPRESSION: Encounter Diagnosis ICD-10-CM 1. Trochanteric bursitis of right hip M70.61 XR HIP GENERAL 3V PELV/AP/LAT RIGHT CONSULT TO PHYSICAL THERAPY 2. Piriformis syndrome, right G57.01 XR HIP GENERAL 3V PELV/AP/LAT RIGHT CONSULT TO PHYSICAL THERAPY 3. Aftercare following right hip joint replacement surgery Z47.1 XR HIP GENERAL 3V PELV/AP/LAT RIGHT Z96.641 Plan: 1. Trochanteric bursitis of right hip (M70.61) - Examination reveals tenderness over the greater trochanter with no significant pain during hip abduction or internal rotation. - X-ray shows no abnormalities in the hip replacement (more content not included)... [facility] XR HIP 3V PELV+ AP/LAT RTon 10-06-2024 XR HIP 3V PELV+ AP/LAT RT * * *Final Report* * * DATE [...] Fallopian tube clips noted in the pelvis. IMPRESSION: Right total hip arthroplasty without complication. Towboat Captain: PSCB Transcribe Date/Time: Oct 06 2024 9:12A Dictated by : RENA MUSE MD This examination was interpreted and the report reviewed and electronically signed by: ISAIAH MONROY MD on Oct 06 2024 9:29AM EST [id number] [facility] CNOVon 03-28-2024 CNOV Office Visit (LOORRM ) GRACIE JONES ([id number]) 1950 F Date Time Provider Department 03/28/24 8:00 AM OLIVE AMAYA During your visit today, we recorded the following information about you: Weight Height 72.1 kg 1.575 m Olive Amaya PA-C 03/28/2024 5:10 PM Signed This document has been created with the use of voice recognition technology. It may contain inaccuracies: misspellings, inaccurate syntax or word sense that escaped review. Chief complaint: Recheck of right hip Right THR 03/17/2023 (1 year ) HISTORY: Gracie is a 73 year old female. Patient comes in today for follow up of her right hip. Patient has a past medical history, medications and allergies were reviewed. She reports that the hip itself is actually doing quite well but is having some soreness into her low back and buttock. She states this is worse if she drives a lot. She first gets up after sitting. Denies radicular symptoms down the leg. Denies anterior hip pain. Does have some discomfort laterally. Pain level is a 5/10. No other musculoskeletal complaints ROS : REVIEW OF SYMPTOMS: Constitutional: patient denies any recent fever or significant change in weight Gastrointestinal: patient notes history of intolerance to NSAIDs due to chronic kidney disease Musculoskeletal: as noted in the HPI Neurologic: as noted in the HPI SOCIAL HISTORY: Tobacco Use: .15 packs/day, for 1 years. Quit 05/18/1973. Types: Cigarettes PAST MEDICAL HISTORY Diagnosis Date Stage 3 chronic kidney disease (HCC) 12/09/2021 PAST SURGICAL HISTORY Procedure Laterality Date SECTION HX x2 COLONOSCOPY SCREENING KERATOPLASTY ENDOTHELIAL Right 04/14/2022 KERATOPLASTY ENDOTHELIAL Left 03/17/2022 PAST SURGICAL HISTORY OF BLEPHAROPLASTY UPPER TOTAL HIP REPLACEMENT Right XR CERVICAL FUSION OR Medications reviewed. ALLERGIES No Known Allergies Social History Tobacco Use Smoking status: Former Current packs/day: 0.00 Average packs/day: 0.2 packs/day for 1 year (0.2 ttl pk-yrs) Types: Cigarettes Start date: 1972 Quit date: 1973 Years since quittin.8 Smokeless tobacco: Never Substance Use Topics Alcohol use: Yes Comment: occasionally Drug use: Not Currently Comment: denies tx for drug/alcohol abuse in the past. EXAMINATION: GENERAL: Appears healthy, well-nourished, no deformities. ORIENTATION: Alert and oriented to person place and time HABITUS: Normal GAIT: Ambulates with a slight antalgic gait on start up and then relatively normal gait thereafter On physical exam of the right hip today, she has excellent hip range of motion without irritability. Has some lateral hip discomfort at extreme of internal rotation. Significant tenderness of the greater trochanter and moderate tenderness over the sciatic notch. Negative SLR for radicular symptoms. Motor and sensory are intact. RADIOGRAPHS: Personally reviewed by myself demonstrating right THR components in satisfactory position interfaces noted. No evidence of wear or loosening. No other osseous abnormalities. Good maintenance of joint space of the left hip. IMPRESSION: Encounter Diagnosis ICD-10-CM 1. Trochanteric bursitis of right hip M70.61 2. Piriformis syndrome, right G57.01 3. Aftercare following right hip joint replacement surgery Z47.1 XR PELVIS 1V AP Z96.641 Plan: Overall the hip itself is doing well but she has significant trochanteric bursitis and moderate piriformis syndrome of the right hip. She was instructed on hip stretching exercises and a handout was given. We discussed using Voltaren gel topically 3-4 times a day to decrease inflammation. Discussed avoidance of direct pressure and ice to the lateral aspect of the hip and buttock. Will give this a bit of time. Follow-up in 4 weeks for recheck. May consider cortisone injection or possibly formal physical therapy at that time if necessary. She agrees with this plan. Olive Amaya PA-C March 28, 2024 8:21 AM Olive Amaya PA-C 03/28/2024 8:47 AM Signed Hip Bursitis stretching exercises: Do stretching exercises per handout. Hold each stretch for 20-30 seconds and repeat 3-5 times. Do stretches first thing in the morning, before and after walking for exercise and at bedtime. Also anytime throughout the day when feeling tight. Ice to side of hip 2-3 times a day for 20 minutes. Avoid direct pressure to the hip by sitting on a pillow in the car or any chair that is irritating. Avoid laying on affected side. Use Voltaren gel to side of hip and buttock 3-4 times a day for inflammation. Allergies As of Date: 03/28/2024 (No Known Allergies) Date Reviewed: 03/28/2024 Reviewed by: Olive Amaya PA-C - Fully Assessed Reason for Visit: Established Patient [175] Established Patient [175] Pain [78] Primary Visit Diagnosis:Trochanteri c bursitis of righ (more content not included)... [facility] XR PELVIS 1V APon 03-28-2024 XR PELVIS 1V AP * * *Final Report* * * DATE OF EXAM: Mar 28 2024 8:14AM [id number] [id number] - XR PELVIS 1V AP / PROCEDURE REASON: multiple diagnoses * * * * Physician Interpretation * * * * HISTORY: Aftercare following right hip joint replacement surgery Aftercare following right hip joint replacement surgery TECHNOLOGIST PROVIDED HISTORY (if applicable): Posterior hip pain TECHNIQUE: XR PELVIS 1V AP RESULT: AP pelvis 2 images compared with 09/23/2023. No fracture, dislocation or destructive lesion. Noncemented RIGHT total hip arthroplasty components are again seen without signs of complication or failure. Mild LEFT hip degenerative change with chondrocalcinosis similar to prior. Chondrocalcinosis is again seen at the symphysis pubis with small osteophytes. Minimal degenerative changes are again seen at the RIGHT sacroiliac joint. Degenerative changes are also again seen in the lower lumbar spine. There are tubal ligation clips. IMPRESSION: NO ACUTE FINDINGS. Towboat Captain: ANDREW Transcribe Date/Time: Mar 28 2024 8:37A Dictated by : RONNY SOOD MD This examination was interpreted and the report reviewed and electronically signed by: RONNY SOOD MD on Mar 28 2024 8:38AM EST [id number] [facility] XR Pelvis APon 03-28-2024 IMPRESSION: NO ACUTE FINDINGS. Towboat Captain: ANDREW Transcribe Date/Time: Mar 28 2024 8:37A Dictated by : RONNY SOOD MD This examination was interpreted and the report reviewed and electronically signed by: RONNY SOOD MD on Mar 28 2024 8:38AM [facility] DIVISION OF RADIOLOGY * * *Final Report* * * DATE OF EXAM: Mar 28 2024 8:14AM [id number] [id number] - XR PELVIS 1V AP / PROCEDURE REASON: multiple diagnoses * * * * Physician Interpretation * * * * HISTORY: Aftercare following right hip joint replacement surgery Aftercare following right hip joint replacement surgery TECHNOLOGIST PROVIDED HISTORY (if applicable): Posterior hip pain TECHNIQUE: XR PELVIS 1V AP RESULT: AP pelvis 2 images compared with 09/23/2023. No fracture, dislocation or destructive lesion. Noncemented RIGHT total hip arthroplasty components are again seen without signs of complication or failure. Mild LEFT hip degenerative change with chondrocalcinosis similar to prior. Chondrocalcinosis is again seen at the symphysis pubis with small osteophytes. Minimal degenerative changes are again seen at the RIGHT sacroiliac joint. Degenerative changes are also again seen in the lower lumbar spine. There are tubal ligation clips. DIVISION OF RADIOLOGY Provider, [facility] - 03/28/2024 * * *Final Report* * * DATE OF EXAM: Mar 28 2024 8:14AM [id number] - XR PELVIS 1V AP / PROCEDURE REASON: multiple diagnoses * * * * Physician Interpretation * * * * HISTORY: Aftercare following right hip joint replacement surgery Aftercare following right hip joint replacement surgery TECHNOLOGIST PROVIDED HISTORY (if applicable): Posterior hip pain TECHNIQUE: XR PELVIS 1V AP RESULT: AP pelvis 2 images compared with 09/23/2023. No fracture, dislocation or destructive lesion. Noncemented RIGHT total hip arthroplasty components are again seen without signs of complication or failure. Mild LEFT hip degenerative change with chondrocalcinosis similar to prior. Chondrocalcinosis is again seen at the symphysis pubis with small osteophytes. Minimal degenerative changes are again seen at the RIGHT sacroiliac joint. Degenerative changes are also again seen in the lower lumbar spine. There are tubal ligation clips. IMPRESSION IMPRESSION: NO ACUTE FINDINGS. Towboat Captain: ANDREW Transcribe Date/Time: Mar 28 2024 8:37A Dictated by : RONNY SOOD MD This examination was interpreted and the report reviewed and electronically signed by: RONNY SOOD MD on Mar 28 2024 8:38AM EST [facility] Radiology Study observation (narrative) [facility] XR Pelvis APOrdered By: [facility] Provider on 03-28-2024 [facility] Cholesterol in LDL Calc [Mas s/Vol]on 10-09-2023 Cholesterol in LDL [Mass/Vol] 125.0 mg/dL [facility] Comment on above: <100 mg/dl [id number] 0-129 mg/dl NEAR OR ABOVE [id number] mg/dl BORDERLINE [id number] mg/dl HIGH>190 mg/dl VERY HIGH Cholesterol in VLDL Calc [Ma ss/Vol]on 10-09-2023 Cholesterol in VLDL [Mass/Vol] 7.8 mg/dL [facility] Estimated glomerular filtrat ion rate (GFR) non- Americanon 10-09-2023 GFR/1.73 sq M.predicted among non-blacks MDRD (S/P/Bld) [Vol rate/Area] 56 mL/min/{1.73_m2} >=60 [facility] Globulin Calc (S) [Mass/Vol] on 10-09-2023 Globulin (S) [Mass/Vol] 5.0 g/dL [facility] Laboratory - Chemistry and C hemistry - challengeon 10-09-2023 Albumin [Mass/Vol] 3.6 g/dL 3.4-5.0 [facility] ALP [Catalytic activity/Vol] 80 U/L 46-116 [facility] ALT [Catalytic activity/Vol] 30 U/L 14-59 [facility] AST [Catalytic activity/Vol] 34 U/L 15-37 [facility] Bilirubin [Mass/Vol] 0.9 mg/dL 0.2-1.0 [facility] Calcium [Mass/Vol] 9.3 mg/dL 8.5-10.1 [facility] Chloride [Moles/Vol] 101 mmol/L 98-107 [facility] Cholesterol [Mass/Vol] 212 mg/dL <=200 [facility] Cholesterol in HDL [Mass/Vol] 80 mg/dL 40-60 [facility] Comment on above: > or =60 mg/dl - LOW CARDIOVASCULAR RISK<40 mg/dl - HIGH CARDIOVASCULAR RISK CO2 [Moles/Vol] 28.3 mmol/L 21.0-32.0 [facility] Creatinine [Mass/Vol] 0.97 mg/dL 0.55-1.02 [facility] GFR/1.73 sq M.predicted MDRD (S/P/Bld) [Vol rate/Area] mL/min/{1.73_m2} >=60 [facility] Glucose [Mass/Vol] 91 mg/dL 74-106 [facility] Potassium [Moles/Vol] 3.8 mmol/L 3.5-5.1 [facility] Protein [Mass/Vol] 8.6 g/dL 6.4-8.2 [facility] Sodium [Moles/Vol] 137 mmol/L 136-145 [facility] Triglyceride [Mass/Vol] 39 mg/dL <=150 [facility] Urea nitrogen [Mass/Vol] 14.0 mg/dL 7.0-18.0 [facility] Urea nitrogen/Creatinine [Mass ratio] 14.4 mg/mg [facility] Serum or plasma albumin/glob ulin mass ratioon 10-09-2023 Albumin/Globulin [Mass ratio] 0.7 {ratio} [facility] Serum or plasma anion gap de terminationon 10-09-2023 Anion gap [Moles/Vol] 11.5 mmol/L [facility] Serum or plasma total choles terol/high density lipoprotein (HDL) cholesterol mass felix 10-09-2023 Cholesterol.total/Cho lesterol in HDL [Mass ratio] 2.7 {ratio} [facility] Comment on above: 3.3 - 4.4 LOW RISK4. 4 - 7.1 AVERAGE RISK7.1 - 11.0 MODERATE RISK>11.0 HIGH RISK XR Pelvis APon 09-23-2023 IMPRESSION: STABLE POSTSURGICAL CHANGE OF TOTAL RIGHT HIP ARTHROPLASTY Towboat Captain: ANDREW Transcribe Date/Time: Sep 23 2023 10:54A Dictated by : REFUGIO CARRERA MD This examination was interpreted and the report reviewed and electronically signed by: REFUGIO CARRERA MD on Sep 23 2023 10:56AM [facility] DIVISION OF RADIOLOGY * * *Final Report* * * DATE OF EXAM: Sep 23 2023 8:14AM LZX 5239 - XR PELVIS 1V AP / PROCEDURE REASON: multiple diagnoses * * * * Physician Interpretation * * * * HISTORY: Aftercare following right hip joint replacement surgery Aftercare following right hip joint replacement surgery TECHNIQUE: Frontal radiograph of the pelvis, 2 views COMPARISON: 04/13/2023 RESULT: Again seen is postsurgical change of total right hip arthroplasty with satisfactory alignment. No acute fracture or evidence of hardware failure identified on these frontal views. Left hip joint space appears preserved. Tubal ligation clips are in the pelvis. There is degenerative change of the lower lumbar spine. DIVISION OF RADIOLOGY Provider, [facility] - 09/23/2023 * * *Final Report* * * DATE OF EXAM: Sep 23 2023 8:14AM LZX 5239 - XR PELVIS 1V AP / PROCEDURE REASON: multiple diagnoses * * * * Physician Interpretation * * * * HISTORY: Aftercare following right hip joint replacement surgery Aftercare following right hip joint replacement surgery TECHNIQUE: Frontal radiograph of the pelvis, 2 views COMPARISON: 04/13/2023 RESULT: Again seen is postsurgical change of total right hip arthroplasty with satisfactory alignment. No acute fracture or evidence of hardware failure identified on these frontal views. Left hip joint space appears preserved. Tubal ligation clips are in the pelvis. There is degenerative change of the lower lumbar spine. 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 [place] [address] CT Scan Report Signed Patient: Gracie Jones MR#: [id number] 7 : 1950 Acct:[id number] Age/Sex: 72 / F ADM Date: 04/21/23 Loc: CT Room: Type: [facility] Attending Dr: Lyndsay Dunbar APRN Copies to: Lyndsay Dunbar APRN Ordering Provider: Lyndsay Dunbar APRN Date of Service: 04/21/23 CT/CT head/brain wo con: Paresthesias ([id number]) CT/CT cervical spine wo con: Paresthesias CT BRAIN WITHOUT CONTRAST: CLINICAL HISTORY: Numbness in bilateral fingers. Dizziness spells. COMPARISON: None TECHNIQUE: Contiguous axial unenhanced images were obtained through the brain. This CT exam was performed using one or more following dose reduction techniques: Automated exposure control, adjustment of the mA and/or kV according to patient size, or use of iterative reconstruction technique. FINDINGS: There is no evidence of midline shift, intra or extra-axial fluid collection, hemorrhage or CT evidence of stroke. Cortical atrophy with chronic microvascular ischemic changes. Posterior fossa appears unremarkable. Visualized intraorbital contents appear unremarkable. Visualized paranasal sinuses are clear. The surrounding soft tissues are normal. CT/CT head/brain wo con IMPRESSION: NO ACUTE INTRACRANIAL ABNORMALITY. CT CERVICAL SPINE WITHOUT CONTRAST WITH 3D RECONSTRUCTIONS: CLINICAL HISTORY: Numbness in bilateral fingers. Dizziness spells. COMPARISON: None TECHNIQUE: Spiral axial unenhanced images were obtained through the cervical spine. Sagittal, coronal and 3D volume-rendered reconstructions were also reviewed. This CT exam was performed using one or more following dose reduction techniques: Automated exposure control, adjustment of the mA and/or kV according to patient size, or use of iterative reconstruction technique. FINDINGS: Anterior fusion hardware C4-C6 without radiographic complication. Moderate spondylosis C3-4 and C4-5. Scattered facet joint degenerative changes. Vertebral body heights appear maintained. No prevertebral soft tissue swelling. Visualized lung apices are clear. IMPRESSION: MODERATE SPONDYLOSIS C3-C5. NO ACUTE PROCESS IS SEEN. Impression dictated by: Shan Zamora Jr., D.O.04/21/2023 1:49 PM Dictation Location: [place] [address] Transcribed By: [facility] 04/21/23 1341 Dictated By: Shan Zamora Jr, DO 04/21/23 1347 Signed By: 04/21/23 134 Normal [facility] A1C HEMOGLOBINon 04-15-2023 HbA1c (Bld) [Mass fraction] 5.5 % [facility] Room n House Other HbA1c (Bld) [Mass fraction]o n 04-15-2023 A1C HEMOGLOBIN [facility] Room n House Other CBC panel Auto (Bld)on 04-13 Erythrocyte distribution width (RBC) [Ratio] 14.1 % 11.5 - 15.0 % [facility] Hematocrit (Bld) [Volume fraction] 40.1 % 36.0 - 46.0 % [facility] Hemoglobin (Bld) [Mass/Vol] 12.6 g/dL 11.5 - 15.5 g/dL [facility] MCH (RBC) [Entitic mass] 30.7 pg 26.0 - 34.0 pg [facility] MCHC (RBC) [Mass/Vol] 31.4 g/dL 30.5 - 36.0 g/dL [facility] MCV (RBC) [Entitic vol] 97.8 fL 80.0 - 100.0 fL [facility] Nucleated RBC (Bld) [#/Vol] <0.01 k/uL [facility] Platelet mean volume (Bld) [Entitic vol] 10.2 fL 9.0 - 12.7 fL [facility] Platelets (Bld) [#/Vol] 394 10*3/uL 150 - 400 k/uL [facility] RBC (Bld) [#/Vol] 4.10 10*6/uL 3.90 - 5.2 0 m/uL [facility] WBC (Bld) [#/Vol] 7.33 10*3/uL 3.70 - 11. 00 k/uL [facility] XR PELVIS [facility]on 04-13-2023 IMPRESSION: Right total hip arthroplasty without complication.. 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 TECHNIQUE: After the injection of 26 mCi of Tc 99m MDP, views were acquired over the skeleton approximately 3 hours after injection. FINDINGS: Postoperative changes of right total hip arthroplasty. No periprosthetic lucency or fractures. Interval resolution of the previously seen soft tissue gas. Joint space narrowing and osteophytic spurring of the left hip. Tubal ligation clips in the pelvis. DIVISION OF RADIOLOGY Provider, [facility] - 04/13/2023 * * *Final Report* * * DATE OF EXAM: Apr 13 2023 10:36AM LZX 5239 - XR PELVIS 1V AP / PROCEDURE REASON: multiple diagnoses * * * * Physician Interpretation * * * * XR PELVIS 1V AP COMPARISON: Pelvis radiograph 03/17/2023 CLINICAL HISTORY: Postoperative evaluation after right total hip orthoplasty. TECHNIQUE: After the injection of 26 mCi of Tc 99m MDP, views were acquired over the skeleton approximately 3 hours after injection. FINDINGS: Postoperative changes of right total hip arthroplasty. No periprosthetic lucency or fractures. Interval resolution of the previously seen soft tissue gas. Joint space narrowing and osteophytic spurring of the left hip. Tubal ligation clips in the pelvis. IMPRESSION IMPRESSION: Right total hip arthroplasty without complication.. Towboat Captain: [facility] Transcribe Date/Time: Apr 13 2023 10:59A Dictated by : VINI PADGETT MD This examination was interpreted and the report reviewed and electronically signed by: VALERIE COTTON MD on Apr 13 2023 3:29PM EST [facility] Radiology Study observation (narrative) [facility] XR Pelvis APOrdered By: Ccf Provider on 04-13-2023 [facility] Basic metabolic 2000 panelon 03-19-2023 Anion gap [Moles/Vol] 8 mmol/L Low 9-18 [facility] Comment on above: Order Comment: Speci men Type: BLOOD SPECIMENOrdering Facility: [facility] Address: [address] [place] [address] Performed By: #### 2 0536-2 ####[facility] LABORATORYIA [id number] [facility] [address] [place] Calcium [Mass/Vol] 7.9 mg/dL Low 8.5-10.2 [facility] Comment on above: Order Comment: Speci men Type: BLOOD SPECIMENOrdering Facility: [facility] Address: [address] [place] [address] Performed By: #### 2 4321-2 ####[facility] LABORATORYIA [id number] [place] [address] [place] Chloride [Moles/Vol] 92 mmol/L Low 97-105 [facility] Comment on above: Order Comment: Speci men Type: BLOOD SPECIMENOrdering Facility: [facility] Address: [address] [place] [address] Performed By: #### 2 4321-2 ####[facility]ITAL[facility] [id number] [facility] [address] [place] CO2 [Moles/Vol] 27 mmol/L Normal 22-30 [facility] ital Comment on above: Order Comment: Speci men Type: BLOOD SPECIMENOrdering Facility: [facility] Address: [address] [place] [address] Performed By: #### 2 4321-2 ####[facility]ITAL[facility] [id number] [place] [address] [place] Creatinine [Mass/Vol] 0.92 mg/dL Normal 0.58-0.96 [facility] Comment on above: Order Comment: Speci men Type: BLOOD SPECIMENOrdering Facility: [facility] Address: [address] [place] [address] Performed By: #### 2 4321-2 ####[facility] HOSPITALIA [id number] [place] [address] [place] Creatinine and Glomerular filtration rate.predicted panel (S/P/Bld) 67 mL/min/1.73m??? Normal >=60 [facility] Comment on above: Order Comment: Speci men Type: BLOOD SPECIMENOrdering Facility: [facility] Address: [address] [place] [address] Result Comment: Sabrina mated Glomerular Filtration Rate (eGFR) is calculated using the 2020 CKD-EPI creatinine equation. This equation utilizes serum creatinine, sex, and age as parameters. The creatinine assay has traceable calibration to isotope dilution-mass spectrometry. Refer to KDIGO guidelines for clinical interpretation. In patients with unstable renal function, e.g. those with acute kidney injury, the eGFR may not accurately reflect actual GFR. Performed By: #### 2 4321-2 ####[facility]ORY[facility] [id number] [facility] [address] [place] Glucose [Mass/Vol] 121 mg/dL High 74-99 [facility] Comment on above: Order Comment: Elena adkins Type: BLOOD SPECIMENOrdering Facility: [facility] Address: [address] [place] [address] Result Comment: The [place] Diabetes Association (ADA) provides guidance for cutoff [...] Standards of Medical Care in Diabetes 2016, [place] [employer]. Diabetes Care. 2016.39(Suppl 1). Performed By: #### 2 4321-2 ####[facility] LABORATORYCLIA [id number] [facility] [address] [place] Potassium [Moles/Vol] 4.3 mmol/L Normal 3.7-5.1 [facility] Comment on above: Order Comment: Elena [facility] Type: BLOOD SPECIMENOrdering Facility: [facility] Address: [address] [place], [place] [address] Performed By: #### 2 4321-2 ####[facility] LABORATORYCLIA [id number] [facility] [address] [place] Sodium [Moles/Vol] 127 mmol/L Low 136-144 [facility] Comment on above: Order Comment: Speci men Type: BLOOD SPECIMENOrdering Facility: [facility] Address: [address] [place] [address] Performed By: #### 2 4321-2 ####[facility]ORYIA [id number] [place] [address] [place] Urea nitrogen [Mass/Vol] 15 mg/dL Normal 7-21 [facility] Comment on above: Order Comment: Speci men Type: BLOOD SPECIMENOrdering Facility: [facility] Address: [address] [place] [address] Performed By: #### 2 4321-2 ####[facility]OR[facility]ORYIA [id number] [place] [address] [place] CBC panel Auto (Bld)on 03-19 Erythrocyte distribution width (RBC) [Ratio] 12.8 % Normal 11.5-15.0 [facility] Comment on above: Order Comment: Speci men Type: BLOOD SPECIMENOrdering Facility: [facility] Address: [address] [place] [address] Performed By: #### 5 8410-2 ####[facility] HOSPITALIA [id number] [place] [address] [place] Hematocrit (Bld) [Volume fraction] 21.9 % Low 36.0-46.0 [facility] Comment on above: Order Comment: Speci men Type: BLOOD SPECIMENOrdering Facility: [facility] Address: [address] [place] [address] Performed By: #### 5 8410-2 ####[facility]ORYIA [id number] [place] [address] [place] Hemoglobin (Bld) [Mass/Vol] 7.4 g/dL Low 11.5-15.5 [facility] Comment on above: Order Comment: Speci men Type: BLOOD SPECIMENOrdering Facility: [facility] Address: [address] [place] [address] Performed By: #### 5 8410-2 ####[facility]ITALIA [id number] [address] [place] MCH (RBC) [Entitic mass] 30.8 pg Normal 26.0-34.0 [facility] Comment on above: Order Comment: Speci men Type: BLOOD SPECIMENOrdering Facility: [facility] Address: [address] [place] [address] Performed By: #### 5 8410-2 ####[facility]ITALIA [id number] [address] [place] MCHC (RBC) [Mass/Vol] 33.8 g/dL Normal 30.5-36.0 [facility] Comment on above: Order Comment: Speci men Type: BLOOD SPECIMENOrdering Facility: [facility] Address: [address] [place] [address] Performed By: #### 5 8410-2 ####[facility]ITALIA [id number] [address] [place] MCV (RBC) [Entitic vol] 91.3 fL Normal 80.0-100.0 [facility] Comment on above: Order Comment: Speci men Type: BLOOD SPECIMENOrdering Facility: [facility] Address: [address] [place] [address] Performed By: #### 5 8410-2 ####[facility]ORYIA [id number] [address] [place] Nucleated RBC (Bld) [#/Vol] 10*3/uL Normal <0.01 [facility] Comment on above: Order Comment: Speci men Type: BLOOD SPECIMENOrdering Facility: [facility] Address: [address] [place] [address] Performed By: #### 5 8410-2 ####[facility]ORYIA [id number] [place] [address] [place] Platelet mean volume (Bld) [Entitic vol] 10.4 fL Normal 9.0-12.7 [facility] Comment on above: Order Comment: Speci men Type: BLOOD SPECIMENOrdering Facility: [facility] Address: [address] [place] [address] Performed By: #### 5 8410-2 ####[facility]ORATORYIA [id number] [place] [address] [facility] [place] Platelets (Bld) [#/Vol] 169 10*3/uL Normal 150-400 [facility] Comment on above: Order Comment: Speci men Type: BLOOD SPECIMENOrdering Facility: [facility] Address: [address] [place] [address] Performed By: #### 5 8410-2 ####[facility]ITALIA [id number] [place] [id number] [place] RBC (Bld) [#/Vol] 2.40 10*6/uL Low 3.90-5.20 [facility] Comment on above: Order Comment: Speci men Type: BLOOD SPECIMENOrdering Facility: [facility] Address: [address] [place] [address] Performed By: #### 5 8410-2 ####[facility]ITALIA [id number] [place] [id number] [facility] [place] WBC (Bld) [#/Vol] 8.20 10*3/uL Normal 3.70-11.00 [facility] Comment on above: Order Comment: Speci men Type: BLOOD SPECIMENOrdering Facility: [facility] Address: [address] [place] [address] Performed By: #### 5 8410-2 ####[facility]ORATORYIA [id number] [place] [id number] [facility] CNDSon 03-19-2023 CNDS HNO ID: [id number] Author: Maira Mora PA-C Service: Orthopaedic Surgery Author Type: Physician Music Director Type: Discharge Summary Filed: 03/19/2023 12:52 PM Note Text: Attestation signed by Isaiah Arriaga MD at 03/19/2023 4:35 PM I have personally performed face to face diagnostic evaluation on this patient. I have examined the patient and reviewed radiographic studies and agree with plan as outlined above. Isaiah Arriaga II, MD March 19, 2023 4:35 PM DISCHARGE SUMMARY Patient Name: Gracie Jones : 1950 ADMISSION DATE: 03/17/2023 DISCHARGE DATE: 03/19/2023 Attending Physician: Isaiah Arriaga MD Primary Diagnosis: Primary osteoarthritis of right hip [M16.11] Operations During Hospitalization: Procedure(s) (LRB): ARTHROPLASTY HIP MOSES EXTENDED STAY (Right) Procedures During Hospitalization: No procedures performed Hospital Course: Gracie is a 72 year old female complaining of right Hip pain not responsive to a comprehensive course of conservative treatment. Right hip total arthroplasty was proposed and the patient wishes to proceed and was medically cleared prior to the procedure. Patient underwent a Right hip total arthroplasty and was transferred to the PACU in stable condition, She was then admitted to the hospital. POD#0, patient had a rapid response for HOTN and AMS. She responded to IVF bolus, narcan, and neosynephrine. POD#1, pain management saw and placed on pain regimen that adequately controlled her pain. Post-operative HgB downtrended 12.2 to 9.8 to 7.4, but patient was asymptomatic, not requiring transfusion. Wound was without sign of infection. She was able to actively participate in a physical and occupational therapy program for gait training and mobilization. Due to the operative findings and procedure performed which is consistent with a major orthopedic procedure, the postoperative analgesia will exceed the allowable morphine equivalent dose. PHYSICAL EXAM: GENERAL: Alert, no distress, cooperative Right Lower Extremity: Dorsalis pedis pulses palpable. Posterior tibial pulses palpable. Dorsi flexion 5/5. Plantar flexion 5/5. Extensor hallucis extension: 5/5. Sensory intact to light touch L1-S1. Dressing clean, dry, and intact. Surgical site no drainage and Silverlon intact. Patient Condition at Discharge: Stable Discharge Disposition: Home with Self Care DISCHARGE MEDICATION: Medication List START taking these medications acetaminophen 500 mg tablet Commonly known as: TYLENOL Take 2 tablets by mouth every 8 hours as needed for pain. Percocet has Acetaminophen. You are not to exceed 4000 mg Acetaminophen dose in a day from all sources. aspirin, enteric coated 81 mg EC tablet Commonly known as: ASPIRIN, ENTERIC COATED Take 1 tablet by mouth two times a day for 28 days. HYDROcodone-acetamino phen 5-325 mg per tablet Commonly known as: NORCO Take 1 tablet by mouth every 6 hours as needed. methocarbamol 500 mg tablet Commonly known as: ROBAXIN Take 1 tablet by mouth three times a day as needed (Muscle spasm). senna 8.6 mg Tab Commonly known as: SENOKOT Take 2 tablets by mouth daily at bedtime. CONTINUE taking these medications celecoxib 100 mg capsule Commonly known as: CeleBREX Take 1 capsule by mouth once daily. Cholecalciferol (Vitamin D3) 50 mcg (2,000 unit) Cap turmeric 400 mg Cap Where to Get Your Medications These medications were sent to e- [facility]/pharmacy #[id number] [place] [address] - [address] [place] [address] [place] [address] aspirin, enteric coated 81 mg EC tablet HYDROcodone-acetamino phen 5-325 mg per tablet methocarbamol 500 mg tablet senna 8.6 mg Tab You can get these medications from any pharmacy You don't need a prescription for these medications acetaminophen 500 mg tablet Future Appointments: Appointments for Next 60 Days Date Time Provider Location Dept Phone 04/13/2023 10:30 AM OLIVE AMAYA [phone] 04/16/2023 10:15 AM ALEX FREDERICK [facility] [phone] 04/29/2023 12:15 PM MARILYNISAIAH SERRANO Marilyn [phone] SIGNATURE: Maira Mora PA-C PATIENT NAME: Gracie Jones DATE: 03/19/23 TIME: 12:44 PM [facility] NURSING PROGon 03-19-2023 NURSING PROG HNO ID: [id number] Author: Mary Weller RN Service: Nursing Author Type: Registered Nurse Type: Nursing Progress Note Filed: 03/19/2023 12:50 PM Note Text: Other: Alert and oriented X 3. No significant changed in condition. Medicated with prn pain medication for c/o right hip pain. Medicated with prn Zofran for c/o nausea. Family at bedside. 1249: Discharged instructions explained to her and she verbalized understanding. [facility] THERAPY NTon 03-19-2023 THERAPY NT HNO ID: [id number] Author: Mahi Rosales OTR/Tamra Service: Occupational Therapy Author Type: Occupational Therapist Type: Therapy (PT/OT/Speech/Resp) Filed: 03/19/2023 9:50 AM Note Text: Occupational Therapy Treatment SERVICE DATE: 03/19/2023 SERVICE TIME: 921 to 945 ROOM: [place] [address] Total Joint Replacement Discharge Readiness: Cleared from Occupational Therapy Recommended Discharge Disposition: Home Anticipated Discharge Needs: Physical Assist at Home Physical Assist at Home for: Transportation, Shopping, Self Care, Stairs, Meals, Laundry, Cleaning Recommended Discharge Equipment: ADL Kit OT 6 Clicks Score: 22 Precautions/Activity Restrictions: Posterior Hip Precautions, Weight Bearing Restrictions Extremity With Weight Bearing Restricted: Right Lower Extremity Right Lower Extremity Weight Bearing Status: WBAT Current Hospital Course: s/p R NISHA; rapid response for hypotension POD#0 Reason for Hospital Admission: OA R Hip Relevant Past Medical History: OA,CKD, h/o cervical fusion Response to Therapy Interventions: Good Participation in Activities, On-Track to Achieve Discharge Goals Continued Skilled Needs Due to: (d/c OT) Occupational Therapy Problem List: Education Deficit, Edema, Pain, Safety Deficits, Impaired Self Care, Decreased Activity Tolerance, Functional Mobility Impairment, Balance Impaired Treatment Interventions: Education, Self Care/Home Management, Energy Conservation Training, Functional Mobility Training, Balance Training Plan for Next Visit: (d/c OT) Home Environment Patient Lives With: Spouse Assistance Available: PRN Entry To Home: Stairs Number Of Stairs Into Home: 1 Number Of Stairs To Bed/Bath: 0 Tub/Shower Type: WIS Laundry: 1st floor ; spouse to complete Equipment Owned: Shower Chair, Grab Bars- Toilet, Cane, Walker- Standard, Walker- Wheeled Prior Functional Level: Within Functional Limits Prior Functional Level Comments: Amb without a device, Indep with ADL and IADL's. + drive. Baseline Cognition: Oriented to situation, Oriented to time, Oriented to place, Oriented to self Current and/or Former Occupation: [employer] Highest Level of Education: College/Professional Trade Occupational Factors Life Roles: Friend, Family Member, Parent, Spouse/Significant Other, Retired Identified Strengths: Good Support System, Access to Healthcare, Problem-Solving Skills, Follows Multi-Step Commands, Memory/Attention, Health Literacy, Safety Awareness, Motivation, Open to Adaptive Equipment/Strategies, Strong Awareness of Deficit(s), Effective Communication Skills, Self-Regulation, Positive Coping Strategies, Involvement in Hobbies/Leisure Activities Identified Barriers: Managing Pain Subjective: I am feeling a little better today. CURRENT FUNCTIONAL STATUS: Most recent performance Current Activities of Daily Living Assist Level Additional Information Feeding Set Up Grooming Set Up Bathing Upper Body Set Up Bathing Lower Body Contact Guard Assistance Dressing Upper Body Set Up Dressing Lower Body Contact Guard Assistance Toileting Stand By Assistance Instrumental Activities of Daily Living Assist Level Additional Information Meal/Beverage Prep Cleaning Laundry Medication Management with Strategies Functional Mobility Assist Level Additional Information Rolling Supine to Sit Sit to Supine Scooting Sit to Stand Stand By Assistance Stand to Sit Stand By Assistance Bed to Chair Stand By Assistance Stepping Wheeled Walker Toilet/Commode Shower Functional Mobility Stand By Assistance Wheeled Walker Blank valenzuela indicate activity not attempted Learning/Educational Needs: Discharge Plan, Self Care, Safety, Rehabilitation Techniques and Procedures, Positioning, Precautions, Plan of Care, Functional Activities/Mobility, Family Education/Training, Equipment, Edema Management Goals for Plan of Care: Patient/Caregiver Goals: Reduce ADL/IADL barriers, Improve physical, mental and/or social well-being, Improve life role(s) Goals: Patient will demonstrate progress with self-care, cognitive and/or coping needs identified to allow safe discharge to home with available support and/or physical assistance. Progress Toward Goals: Progressing as expected Rehab Potential: Good Patient will be discontinued from Occupational Therapy when no further skilled needs are identified in this setting. PLAN: OT Frequency: Discontinue Therapy Services Reasons Therapy Services Discontinued: Goals met Plan of Care developed with: Patient, Caregiver, Family TREATMENT INTERVENTIONS: Therapy Diagnosis: Decreased activities of daily living (ADL), Reduced mobility-other, Muscle Weakness (generalized) Interventions Provided: Self Fci Management (19544) Self Fci Management (93794) Treatment Minutes: 24 $ Self Fci Management (99421) Billed Units: 2 units Training AND Education Provided in: Activity Ad (more content not included)... Normal [facility] Basic metabolic 2000 panelon 03-18-2023 Anion gap [Moles/Vol] 7 mmol/L Low 9-18 [facility] Comment on above: Order Comment: Speci men Type: BLOOD SPECIMENOrdering Facility: [facility] Address: [address] [place] [address] Performed By: #### 2 4321-2 ####[facility]OSPITALIA [id number] [place] [address] [place] Calcium [Mass/Vol] 8.4 mg/dL Low 8.5-10.2 [facility] Comment on above: Order Comment: Speci men Type: BLOOD SPECIMENOrdering Facility: [facility] Address: [address] [place] [address] Performed By: #### 2 4321-2 ####[facility] LABORATORYIA [id number] [place] [address] [place] Chloride [Moles/Vol] 97 mmol/L Normal 97-105 [facility] Comment on above: Order Comment: Speci men Type: BLOOD SPECIMENOrdering Facility: [facility] Address: [address] [place] [address] Performed By: #### 2 4321-2 ####[facility] LABORATORYCLIA [id number] [place] [address] [place] CO2 [Moles/Vol] 25 mmol/L Normal 22-30 [facility] Comment on above: Order Comment: Speci men Type: BLOOD SPECIMENOrdering Facility: [facility] Address: [address] [place] [address] Performed By: #### 2 4321-2 ####[facility] LABORATORYCLIA [id number] [place] [id number] [place] Creatinine [Mass/Vol] 0.98 mg/dL High 0.58-0.96 [facility] Comment on above: Order Comment: Speci men Type: BLOOD SPECIMENOrdering Facility: [facility] Address: [address] [place] [address] Performed By: #### 2 4321-2 ####[facility] LABORATORYCLIA [id number] [address] STATES OF [facility] Creatinine and Glomerular filtration rate.predicted panel (S/P/Bld) 62 mL/min/1.73m??? Normal >=60 [facility] Comment on above: Order Comment: Speci men Type: BLOOD SPECIMENOrdering Facility: [facility] Address: [address] [place] [address] Result Comment: Sabrina mated Glomerular Filtration Rate (eGFR) is calculated using the 2020 CKD-EPI creatinine equation. This equation utilizes serum creatinine, sex, and age as parameters. The creatinine assay has traceable calibration to isotope dilution-mass spectrometry. Refer to KDIGO guidelines for clinical interpretation. In patients with unstable renal function, e.g. those with acute kidney injury, the eGFR may not accurately reflect actual GFR. Performed By: #### 2 4321-2 ####[facility] LABORATORYCLIA [id number] [place] [address] [place] Glucose [Mass/Vol] 154 mg/dL High 74-99 [facility] Comment on above: Order Comment: Aliciai men Type: BLOOD SPECIMENOrdering Facility: [facility] Address: [address] [place] [address] Result Comment: The [place] [employer] (ADA) provides guidance for cutoff [...] Standards of Medical Care in Diabetes 2016, [place] [employer]. Diabetes Care. 2016.39(Suppl 1). Performed By: #### 2 4321-2 ####[facility]ATORYIA [id number] [place] [id number] [place] Potassium [Moles/Vol] 4.8 mmol/L Normal 3.7-5.1 [facility] Comment on above: Order Comment: Aliciai lucille Type: BLOOD SPECIMENOrdering Facility: [facility] Address: [address] [place] [address] Performed By: #### 2 4321-2 ####[facility] [id number] [place] [address] [place] Sodium [Moles/Vol] 129 mmol/L Low 136-144 [facility] Comment on above: Order Comment: Speci men Type: BLOOD SPECIMENOrdering Facility: [facility] Address: [address] [place] [address] Performed By: #### 2 4321-2 ####[facility] [id number] [place] [address] [place] Urea nitrogen [Mass/Vol] 16 mg/dL Normal 7-21 [facility] Comment on above: Order Comment: Speci men Type: BLOOD SPECIMENOrdering Facility: [facility] Address: [address] [place] [address] Performed By: #### 2 4321-2 ####[facility]ITALIA [id number] [place] [address] [place] CBC panel Auto (Bld)on 03-18 Erythrocyte distribution width (RBC) [Ratio] 12.7 % Normal 11.5-15.0 [facility] Comment on above: Order Comment: Speci men Type: BLOOD SPECIMENOrdering Facility: [facility] Address: [address] [place] [address] Performed By: #### 5 8410-2 ####[facility]ITALIA [id number] [address] [place] Hematocrit (Bld) [Volume fraction] 29.1 % Low 36.0-46.0 [facility] Comment on above: Order Comment: Speci men Type: BLOOD SPECIMENOrdering Facility: [facility] Address: [address] [place] [address] Performed By: #### 5 8410-2 ####[facility] [id number] [address] [place] Hemoglobin (Bld) [Mass/Vol] 9.8 g/dL Low 11.5-15.5 [facility] Comment on above: Order Comment: Speci men Type: BLOOD SPECIMENOrdering Facility: [facility] Address: [address] [place] [address] Performed By: #### 5 8410-2 ####[facility] [id number] [address] [place] MCH (RBC) [Entitic mass] 31.1 pg Normal 26.0-34.0 [facility] Comment on above: Order Comment: Speci men Type: BLOOD SPECIMENOrdering Facility: [facility] Address: [address] [place] [address] Performed By: #### 5 8410-2 ####[facility] [id number] [address] [place] MCHC (RBC) [Mass/Vol] 33.7 g/dL Normal 30.5-36.0 [facility] Comment on above: Order Comment: Speci men Type: BLOOD SPECIMENOrdering Facility: [facility] Address: [address] [place] [address] Performed By: #### 5 8410-2 ####[facility] [id number] [place] [id number] [place] MCV (RBC) [Entitic vol] 92.4 fL Normal 80.0-100.0 [facility] Comment on above: Order Comment: Speci men Type: BLOOD SPECIMENOrdering Facility: [facility] Address: [address] [place] [address] Performed By: #### 5 8410-2 ####[facility]ORATORYIA [id number] [facility] [place] [place] [address] [place] Nucleated RBC (Bld) [#/Vol] 10*3/uL Normal <0.01 [facility] Comment on above: Order Comment: Speci men Type: BLOOD SPECIMENOrdering Facility: [facility] Address: [address] [place] [address] Performed By: #### 5 8410-2 ####[facility]ITALIA [id number] [place] [address] [place] Platelet mean volume (Bld) [Entitic vol] 10.4 fL Normal 9.0-12.7 [facility] Comment on above: Order Comment: Speci men Type: BLOOD SPECIMENOrdering Facility: [facility] Address: [address] [place] [address] Performed By: #### 5 8410-2 ####[facility]ITALIA [id number] [place] [address] [place] Platelets (Bld) [#/Vol] 199 10*3/uL Normal 150-400 [facility] Comment on above: Order Comment: Speci men Type: BLOOD SPECIMENOrdering Facility: [facility] Address: [address] [place] [address] Performed By: #### 5 8410-2 ####[facility]ITALIA [id number] [place] [address] [place] RBC (Bld) [#/Vol] 3.15 10*6/uL Low 3.90-5.20 [facility] Comment on above: Order Comment: Speci men Type: BLOOD SPECIMENOrdering Facility: [facility] Address: [address] [place] [address] Performed By: #### 5 8410-2 ####[facility]ORATORYCLIA [id number] [facility] [place] [address] [place] WBC (Bld) [#/Vol] 15.78 10*3/uL High 3.70-11.00 [facility] Comment on above: Order Comment: Speci men Type: BLOOD SPECIMENOrdering Facility: [facility] Address: [address] [place] [id number] Performed By: #### 5 8410-2 ####[facility]ORATORYCLIA [id number] [facility] [place] [address] [facility] CONSULTon 03-18-2023 CONSULT HNO ID: [id number] Author: David Lr PA-C Service: Pain Management Author Type: Physician Music Director Type: Consults Filed: 03/18/2023 5:59 PM Note Text: PAIN MANAGEMENT CONSULT -- [facility] PATIENT NAME: Gracie Jones DATE of SERVICE: March 18, 2023 TIME of SERVICE:5:29 PM ATTENDING PROVIDER: Isaiah Arriaga MD PAIN MANAGEMENT SUMMARY: Mrs. Jones is a 72 year old female S/P right total hip replacement POD #1. Patient complains of significant spasms in the right hip. Patient had an episode of hypotension yesterday believed to be secondary to opioid analgesics. Plan is as follows: BUN 16, creatinine 0.98. D/C cyclobenzaprine and start Robaxin 1 gram IV q8h. D/C oxycodone and start [place] 5/325 mg 1 tab PO q4h PRN moderate-severe pain. Change Tylenol to 650 mg PO q8h. Other analgesics as previous. DIAGNOSES: Acute postoperative pain of right hip. Active Hospital Problems Diagnosis Date Noted Primary osteoarthritis of right hip 02/18/2023 S/P hip replacement, right 03/18/2023 Hypotension due to hypovolemia 03/17/2023 Sinus bradycardia 03/17/2023 PONV (postoperative nausea and vomiting) 02/18/2023 Elevated BP without diagnosis of hypertension 09/02/2022 Stage 3 chronic kidney disease (HCC) 12/09/2021 Hyperlipidemia, unspecified 04/06/2021 CHIEF COMPLAINT: Postoperative right hip pain and spasm. HPI: Gracie Jones is a 72 year old year old female admitted on 03/17/2023 with right hip osteoarthritis. Patient is S/P right total hip replacement on 03/17/23. Consultation requested by Maira Mora PA-C for an opinion regarding Post-op pain, poor opioid tolerance. My final recommendations will be communicated back to the requesting provider by way of shared medical record. Mrs. Jones reports constant aching pain and frequent spasms in the right hip. The pain runs to her knee. She was able to stand and walk with physical therapy today. No particular aggravating or alleviating factors are identified. Her current pain score is 6/10. The patient's current inpatient analgesic regimen includes Tylenol 1 gram PO q8h, Toradol 15 mg IV q6h, morphine 2 mg IV q2h PRN severe pain, Flexeril 5 mg PO BID, oxycodone 5 mg PO q3h PRN moderate pain + 5 mg PO q6h PRN breakthrough pain. [place]AR[place] Report was reviewed. The patient has received 1 controlled substance prescription in the past 2 years. The patient's most recent prescription was dispensed on 03/17/22 (tramadol 50 mg, 10 tabs/2 days). Overdose Risk Score: 110. Current outpatient MME/day: 0 mg. PAST MEDICAL HISTORY: PAST MEDICAL HISTORY Diagnosis Date Stage 3 chronic kidney disease (HCC) 12/09/2021 PAST SURGICAL HISTORY: PAST SURGICAL HISTORY Procedure Laterality Date SECTION HX x2 COLONOSCOPY SCREENING KERATOPLASTY ENDOTHELIAL Right 04/14/2022 KERATOPLASTY ENDOTHELIAL Left 03/17/2022 PAST SURGICAL HISTORY OF BLEPHAROPLASTY UPPER XR CERVICAL FUSION OR ALLERGIES: ALLERGIES No Known Allergies CURRENT MEDICATIONS: Current Facility-Administered Medications: keTORolac 15 mg injection (Toradol) scopolamine - VERIFY patch scopolamine - REMOVE PATCH aspirin, enteric coated 81 mg tab(s) lactated ringers iv infusion morphine 2 mg injection oxyCODONE IR 5 mg tab(s) (ROXICODONE) oxyCODONE IR 5 mg tab(s) (ROXICODONE) acetaminophen 1,000 mg tab(s) (TYLENOL) ondansetron 4 mg tab(s) (ZOFRAN) OR ondansetron (PF) 4 mg injection (ZOFRAN) magnesium hydroxide 400 mg/5 mL 30 mL (MOM) [START ON 03/19/2023] bisacodyl EC 10 mg tab(s) (DULCOLAX) aluminum-magnesium hydroxide-simethicone 200-200-20 mg/5 mL 30 mL ferrous sulfate 325 mg tab(s) ascorbic acid (vitamin C) 500 mg tab(s) (VITAMIN C) senna 17.2 mg tab(s) (SENOKOT) FAMILY HISTORY: FAMILY HISTORY Problem Relation Age of Onset PONV Daughter SOCIAL HISTORY: SOCIAL HISTORY Marital Status: Tobacco Use: 0.15 packs/day, for 1 years. Quit 05/18/1973. Types: Cigarettes Alcohol Use: Yes (occasionally) Drug Use: Not Currently (denies tx for drug/alcohol abuse in the past.) REVIEW OF SYSTEMS: Please reference the admission history and physical. PHYSICAL EXAMINATION: Vital Signs: BP 122/56 Pulse 64 Temp (Src) 97.7 (Oral) Resp 16 Ht 5' 2 (1.58m) Wt 150 lb (68.0kg) SpO2 95% LMP 07/18/2001 BMI 27.43 kg/(m2). O2 Therapy: Room Air General appearance: Appears uncomfortable, alert, in no acute respiratory distress, well-hydrated, well nourished. Skin: Incision site with dressing clean, dry, intact. Head: Normocephalic, atraumatic. Lungs: Lungs clear to auscultation. No wheezing, rhonchi, rales. Heart: RRR without murmur, gallop, or rubs. No ectopy Abdomen: Abdomen soft, non-tender. Bowel sounds normal. No masses, organomegaly Extremities: Expected postoperative edema at right hip. Musculoskeletal: Tender at anterior right thigh and at periphery of incision site. LABORATORY STUDIES: (more content not included)... Normal [facility] THERAPY NTon 03-18-2023 THERAPY NT HNO ID: [id number] Author: Mahi Rosales OTR/L Service: Occupational Therapy Author Type: Occupational Therapist Type: Therapy (PT/OT/Speech/Resp) Filed: 03/18/2023 3:48 PM Note Text: Occupational Therapy Evaluation SERVICE DATE: 03/18/2023 SERVICE TIME: 1450 to 1543 ROOM: [place] [address] Total Joint Replacement Discharge Readiness: Pending Occupational Therapy Clearance Recommended Discharge Disposition: Home Anticipated Discharge Needs: Physical Assist at Home Physical Assist at Home for: Transportation, Shopping, Self Care, Stairs, Meals, Laundry, Cleaning Recommended Discharge Equipment: ADL Kit OT 6 Clicks Score: 18 Precautions/Activity Restrictions: Posterior Hip Precautions, Weight Bearing Restrictions Extremity With Weight Bearing Restricted: Right Lower Extremity Right Lower Extremity Weight Bearing Status: WBAT Current Hospital Course: s/p R NISHA; rapid response for hypotension POD#0 Reason for Hospital Admission: OA R Hip Relevant Past Medical History: OA,CKD, h/o cervical fusion Response to Therapy Interventions: Good Participation in Activities, On-Track to Achieve Discharge Goals Continued Skilled Needs Due to: Safety Concerns, Functional Impairment Occupational Therapy Problem List: Education Deficit, Edema, Pain, Safety Deficits, Impaired Self Care, Decreased Activity Tolerance, Functional Mobility Impairment, Balance Impaired Cognition/Communicati on Deficits Responsiveness: Awake, Alert Follows Commands: 2-step Commands Treatment Interventions: Education, Self Care/Home Management, Energy Conservation Training, Functional Mobility Training, Balance Training Plan for Next Visit: Dressing Training Home Environment Patient Lives With: Spouse Assistance Available: PRN Entry To Home: Stairs Number Of Stairs Into Home: 1 Number Of Stairs To Bed/Bath: 0 Tub/Shower Type: WIS Laundry: 1st floor ; spouse to complete Equipment Owned: Shower Chair, Grab Bars- Toilet, Cane, Walker- Standard, Walker- Wheeled Prior Functional Level: Within Functional Limits Prior Functional Level Comments: Amb without a device, Indep with ADL and IADL's. + drive. Baseline Cognition: Oriented to situation, Oriented to time, Oriented to place, Oriented to self Current and/or Former Occupation: [employer] Highest Level of Education: College/Professional Trade Occupational Factors Life Roles: Friend, Family Member, Parent, Spouse/Significant Other, Retired Identified Strengths: Good Support System, Access to Healthcare, Problem-Solving Skills, Follows Multi-Step Commands, Memory/Attention, Health Literacy, Safety Awareness, Motivation, Open to Adaptive Equipment/Strategies, Strong Awareness of Deficit(s), Effective Communication Skills, Self-Regulation, Positive Coping Strategies, Involvement in Hobbies/Leisure Activities Identified Barriers: Managing Pain Subjective: I am just a little nauseated but feel ok CURRENT FUNCTIONAL STATUS: Most recent performance Current Activities of Daily Living Assist Level Additional Information Feeding Set Up Grooming Set Up Bathing Upper Body Set Up Bathing Lower Body Moderate Assistance Dressing Upper Body Set Up Dressing Lower Body Moderate Assistance Difficulty picking LE off ground to dwayne pants and socks due to pain. Toileting Moderate Assistance Instrumental Activities of Daily Living Assist Level Additional Information Meal/Beverage Prep Cleaning Laundry Medication Management with Strategies Functional Mobility Assist Level Additional Information Rolling Supine to Sit Sit to Supine Scooting Sit to Stand Minimal Assistance Stand to Sit Minimal Assistance Bed to Chair Toilet/Commode Shower Functional Mobility Blank valenzuela indicate activity not attempted Learning/Educational Needs: Discharge Plan, Self Care, Safety, Rehabilitation Techniques and Procedures, Positioning, Precautions, Plan of Care, Functional Activities/Mobility, Family Education/Training, Equipment, Edema Management Goals for Plan of Care: Patient/Caregiver Goals: Reduce ADL/IADL barriers, Improve physical, mental and/or social well-being, Improve life role(s) Goals: Patient will demonstrate progress with self-care, cognitive and/or coping needs identified to allow safe discharge to home with available support and/or physical assistance. Progress Toward Goals: Progressing as expected Rehab Potential: Good Patient will be discontinued from Occupational Therapy when no further skilled needs are identified in this setting. PLAN: OT Frequency: One Additional Visit Plan of Care developed with: Patient, Caregiver, Family TREATMENT INTERVENTIONS: Therapy Diagnosis: Decreased activities of daily living (ADL), Reduced mobility-other, Muscle Weakness (generalized) Interventions Provided: Evaluation, Self Fci Management (25122) $ Evaluation - Low (88689) Billed Units: 1 unit Self Fci Management (9753 (more content not included)... Normal [facility] THERAPY NT HNO ID: [id number] Author: Sheng Redman, PT Service: Physical Therapy Author Type: Physical Therapist Type: Therapy (PT/OT/Speech/Resp) Filed: 03/18/2023 2:38 PM Note Text: Physical Therapy Treatment SERVICE DATE: 03/18/2023 SERVICE TIME: 1350 to 1430 ROOM: [place] [address] Total Joint Replacement Discharge Readiness: Cleared from Physical Therapy Recommended Discharge Disposition: Outpatient Physical Therapy Anticipated Discharge Needs: Undetermined Recommended Discharge Equipment: No equipment needs anticipated PT 6 Clicks Score: 22 Precautions/Activity Restrictions: Posterior Hip Precautions, Weight Bearing Restrictions Extremity With Weight Bearing Restricted: Right Lower Extremity Right Lower Extremity Weight Bearing Status: WBAT Current Hospital Course: s/p R NISHA; rapid response for hypotension POD#0 Reason for Hospital Admission: OA R Hip Relevant Past Medical History: OA,CKD, h/o cervical fusion Response to Therapy Interventions: Improved Tolerance for Activity Physical Therapy Problem List: Education Deficit, Pain, Functional Mobility Impairment Treatment Interventions: Education, Functional Mobility Training Home Environment Patient Lives With: Spouse Entry To Home: Stairs Number Of Stairs Into Home: 1 Number Of Stairs To Bed/Bath: 0 Tub/Shower Type: WIS Laundry: 1st floor ; spouse to complete Equipment Owned: Shower Chair, Grab Bars- Toilet, Cane, Walker- Standard, Walker- Wheeled Prior Functional Level: Within Functional Limits Prior Functional Level Comments: amb. no device; indep. ADLs; Subjective: pain feels about the same CURRENT FUNCTIONAL STATUS: Most recent performance Current Functional Mobility Assist Level Additional Information Rolling Supine to Sit Minimal Assistance, Additional Information slight assist at R while pt. moved leg with sheet Sit to Supine Moderate Assistance, Additional Information NT this session Scooting Sit to Stand Verbal Cues Only Stand to Sit Verbal Cues Only Bed to Chair Toilet/Commode Gait Verbal Cues Only Gait Device: Wheeled Walker Gait Distance (feet): 65 x 2 Stairs Curb Step Stand By Assistance Device: Wheeled Walker Car Transfer Blank valnezuela indicate activity not attempted Gait Deviations Right Lower Extremity: Heel strike during initial stance decreased, Weight bearing decreased, Stance time decreased, Step length decreased General Deviations/Observatio ns: Antalgic gait, Eva decreased JH-HLM: 7: Walk 25 feet or more Learning/Educational Needs: Discharge Plan, Functional Activities/Mobility, Precautions Goals for Plan of Care: Patient/Caregiver Goals: Walk, Go Home, Care For Self Goals: Patient will demonstrate progress with functional mobility to allow safe discharge to home with available support and/or physical assistance. Progress Toward Goals: Progressing as expected Rehab Potential: Good Patient will be discontinued from Physical Therapy when no further skilled needs are identified in this setting. PLAN: PT Frequency: Discontinue Therapy Services Reasons Therapy Services Discontinued: Goals met Plan of Care developed with: Patient TREATMENT INTERVENTIONS: Therapy Diagnosis: Difficulty walking-musculoskelet al Interventions Provided: Therapeutic Exercise (10468), Therapeutic Activity (10036), Gait Training (61827) Therapeutic Exercise (41654) Treatment Minutes: 8 $ Therapeutic Exercise (64089) Billed Units: 1 unit Therapeutic Activity (63075) Treatment Minutes: 12 $ Therapeutic Activity (81051) Billed Units: 1 unit Gait Training (96581) Treatment Minutes: 20 $ Gait Training (54722) Billed Units: 1 unit Training AND Education Provided in: Assistive Device Use, Bed Mobility, Transfers, Curb Step Navigation, Discharge Planning, Expected Functional Level, Gait Pattern, Reduction of Deviations, Patient Exercise/Therapy Program Support Needs The Following Therapeutic Skills Were Used: Cuing Tactile, Cuing Verbal, Cuing Visual, Cues for Sequencing/Proper Technique for Activity, Family Training Timed Code Treatment (minutes): 40 Skilled Treatment Time (minutes): 40 Please see discipline specific clinical documentation flowsheet for complete details for this therapy evaluation/treatment. SIGNATURE: Sheng Redman PT PATIENT NAME: Gracie Jones DATE: March 18, 2023 TIME: 2:37 PM Normal [facility] THERAPY NT HNO ID: [id number] Author: Sheng Redman PT Service: Physical Therapy Author Type: Physical Therapist Type: Therapy (PT/OT/Speech/Resp) Filed: 03/18/2023 10:25 AM Note Text: Physical Therapy Evaluation SERVICE DATE: 03/18/2023 SERVICE TIME: 931 to 1010 ROOM: [place] [address] Pt. did not ambulate this session due to increasing lightheadedness in sit (BP not taken until after lying down via PT increased assist, was 126/65 after 2 min) Total Joint Replacement Discharge Readiness: Pending Physical Therapy Clearance Recommended Discharge Disposition: Outpatient Physical Therapy Anticipated Discharge Needs: Undetermined Recommended Discharge Equipment: No equipment needs anticipated PT 6 Clicks Score: 18 Precautions/Activity Restrictions: Posterior Hip Precautions, Weight Bearing Restrictions Extremity With Weight Bearing Restricted: Right Lower Extremity Right Lower Extremity Weight Bearing Status: WBAT Current Hospital Course: s/p R NISHA; rapid response for hypotension POD#0 Reason for Hospital Admission: OA R Hip Relevant Past Medical History: OA,CKD, h/o cervical fusion Response to Therapy Interventions: Labile Vital Signs Continued Skilled Needs Due to: Functional Mobility/Skill Impairments Physical Therapy Problem List: Education Deficit, Pain, Functional Mobility Impairment Treatment Interventions: Education, Functional Mobility Training Home Environment Patient Lives With: Spouse Entry To Home: Stairs Number Of Stairs Into Home: 1 Number Of Stairs To Bed/Bath: 0 Tub/Shower Type: WIS Laundry: 1st floor ; spouse to complete Equipment Owned: Shower Chair, Grab Bars- Toilet, Cane, Walker- Standard, Walker- Wheeled Prior Functional Level: Within Functional Limits Prior Functional Level Comments: amb. no device; indep. ADLs; Subjective: Oh, I don't feel well. I'm dizzy CURRENT FUNCTIONAL STATUS: Most recent performance Current Functional Mobility Assist Level Additional Information Rolling Supine to Sit Minimal Assistance Sit to Supine Moderate Assistance, Additional Information due to increased lightheadedness Scooting Sit to Stand Stand to Sit Bed to Chair Toilet/Commode Gait Stairs Curb Step Car Transfer Blank valenzuela indicate activity not attempted JH-HLM: 3: Sit at edge of bed Learning/Educational Needs: Discharge Plan, Functional Activities/Mobility, Precautions Goals for Plan of Care: Patient/Caregiver Goals: Walk, Go Home, Care For Self Goals: Patient will demonstrate progress with functional mobility to allow safe discharge to home with available support and/or physical assistance. Rehab Potential: Good Patient will be discontinued from Physical Therapy when no further skilled needs are identified in this setting. PLAN: PT Frequency: Twice Daily Plan of Care developed with: Patient TREATMENT INTERVENTIONS: Therapy Diagnosis: Difficulty walking-musculoskelet al, Reduced mobility-other Interventions Provided: Evaluation, Therapeutic Exercise (28310), Therapeutic Activity (70463), Gait Training (80711) $ Evaluation-Low (61739) Billed Units: 1 unit Therapeutic Exercise (69501) Treatment Minutes: 12 Therapeutic Activity (26186) Treatment Minutes: 12 $ Therapeutic Activity (44222) Billed Units: 1 unit Training AND Education Provided in: Assistive Device Use, Bed Mobility, Gait Pattern, Reduction of Deviations, Expected Functional Level, Discharge Planning, Patient Exercise/Therapy Program Support Needs, Precautions/Restricti ons, Transfers, Role of Physical Therapy The Following Therapeutic Skills Were Used: Cues for Sequencing/Proper Technique for Activity, Cuing Tactile, Cuing Verbal, Cuing Visual, Assessment of Tolerance Including Vitals Response to Activity Timed Code Treatment (minutes): 24 Skilled Treatment Time (minutes): 39 Please see discipline specific clinical documentation flowsheet for complete details for this therapy evaluation/treatment. SIGNATURE: Sheng Redman, PT PATIENT NAME: Gracie Jones DATE: March 18, 2023 TIME: 10:23 AM [facility] ANES POSTPROC EVALon 023 ANES POSTPROC EVAL HNO ID: [id number] Author: Stephen Angela MD Service: Anesthesiology Author Type: Anesthesiologist Type: Anesthesia Postprocedure Evaluation Filed: 03/17/2023 7:21 PM Note Text: POST ANESTHESIA EVALUATION NOTE : 1950 Procedure Summary Date: 03/17/23 Room / Location: OR04 / AV OR Anesthesia Start: 1508 Anesthesia Stop: 1745 Procedure: ARTHROPLASTY HIP MOSES EXTENDED STAY (Right: Hip) Diagnosis: Primary osteoarthritis of right hip (Primary osteoarthritis of right hip [M16.11]) Surgeons: Isaiah Arriaga MD Responsible Provider: Stephen Angela MD Anesthesia Type: spinal ASA Status: 2 Anesthesia Type: spinal Last Vitals Vitals Value Taken Time BP 109/77 03/17/231909 Temp 36.7 ?C (98.1 ?F) 03/17/231739 Pulse 56 03/17/231918 Resp 12 03/17/231918 SpO2 99 % 03/17/231918 Vitals shown include unvalidated device data. Post Anesthesia Patient Status Patient Evaluation: PACU. PACU/ICU Patient Condition: stable. Anticipated Disposition: inpatient floor planned admission. Neurological Status: aware and responsive. Pulmonary Status: breathing comfortably on room air Airway Control: returned to baseline unsupported. Cardiovascular Status: stable. Pain Management: clinically adequate Postoperative Hydration: acceptable. Intraoperative Events: no significant anesthesia events Post Operative Nausea/Vomiting Status: no significant post operative nausea or vomiting Recommendation: continue current plan of care. Anesthesia Observations No Documentation SIGNATURE: Stephen Angela MD PATIENT NAME: Gracie Jones DATE: March 17, 2023 TIME: 7:21 PM CSN: [id number] [facility] ANES PRE-OPon 03-17-2023 ANES PRE-OP HNO ID: [id number] Author: Stephen Angela MD Service: Anesthesiology Author Type: Anesthesiologist Type: Anesthesia Preprocedure Evaluation Filed: 03/17/2023 2:27 PM Note Text: ANESTHESIOLOGY DAY OF SURGERY NOTE : 1950 Procedure Information Date/Time: 03/17/23 1415 Procedure: ARTHROPLASTY HIP MOSES EXTENDED STAY (Right: Hip) Location: AV OR04 / AV OR Surgeons: Isaiah Arriaga MD Estimated body mass index is 27.62 kg/m? as calculated from the following: Height as of 02/18/23: 157.5 cm (5' 2 ). Weight as of 02/18/23: 68.5 kg (151 lb). Most recent hematocrit and potassium results: Hematocrit 43.3 01/07/2023 Potassium 4.0 01/07/2023 Relevant Problems ANESTHESIA (+) PONV (postoperative nausea and vomiting) -RENAL (+) Stage 3 chronic kidney disease (HCC) I - PHYSICAL EVALUATION AIRWAY Patient intubated: No. Tracheostomy tube not present Mallampati: II. TM distance: >3 FB. Neck ROM: full ROM without neurological symptoms. Mouth opening: adequate. Short neck: no. Thick neck: no DENTAL Dental findings: teeth intact. II - ANESTHESIA PLAN ASA Score: 2 Anesthetic Plan: spinal The patient is not a current smoker. NPO Status: adequate Beta Edyta Monitoring Plan Monitoring plan: standard ASA. Post Procedure Analgesic Plan Postoperative analgesic plan: multimodal analgesia. Informed Consent Anesthetic risks, benefits, alternatives, personnel and consent discussed: yes. Patient / Responsible Libertarian agrees to proceed: yes Patient / Surrogate agrees to blood products: blood products not planned Significant changes in the patient condition since the History and Physical, not otherwise documented in primary service progress note: no. Potential Anesthesia issues that may suggest increased risk of complications or contraindication to planned procedure: none. Discussed the possibility of lip / dental damage: yes Vitals Value Taken Time BP 146/117 03/17/23 1300 Pulse 68 03/17/23 1300 Resp 16 03/17/23 1300 Temp 36.3 ?C (97.3 ?F) 03/17/23 1300 SpO2 98 % 03/17/23 1300 Facility-Administered Medications as of 03/17/2023 Medication Dose Route Frequency - [COMPLETED] acetaminophen 1,000 mg tab(s) (TYLENOL) 1,000 mg ORAL Pre-Op Once - [COMPLETED] meloxicam 7.5 mg tab(s) (MOBIC) 7.5 mg ORAL Pre-Op Once - lidocaine (PF) 10 mg/mL (1 %) 1-2 mg injection (XYLOCAINE) 0.1-0.2 mL INTRADERMAL PRN - lactated ringers iv infusion 5-30 mL/hr INTRAVENOUS CONTINUOUS - NaCl 0.9% iv flush bag 20 mL INTRAVENOUS PRN - ceFAZolin iv piggyback 2 g in D5W (iso-osmotic) 100 mL (ANCEF) 2 g INTRAVENOUS Pre-Op Once - [COMPLETED] dexAMETHasone sodium phosphate (PF) 8 mg injection (DECADRON) 8 mg INTRAVENOUS Pre-Op Once - [COMPLETED] promethazine 12.5 mg tab(s) (PHENERGAN) 12.5 mg ORAL Pre-Op Once - scopolamine 1 mg over 3 days 1 Patch (TRANSDERM-SCOP) 1 Patch TRANSDERMAL ONCE - famotidine 20 mg injection (PEPCID) 20 mg INTRAVENOUS Pre-Op Once Outpatient Medications as of 03/17/2023 Medication Sig - Cholecalciferol, Vitamin D3, 50 mcg (2,000 unit) cap Take 2,000 Units by mouth once daily. I have interviewed and examined the patient. I have reviewed the medical record and/or the pre-anesthesia evaluation, pertinent labs, and test results. This contains updated information obtained within 48 hours of Surgery/Procedure. SIGNATURE: Stephen Angela MD PATIENT NAME: Gracie Jones DATE: March 17, 2023 TIME: 2:26 PM CSN: [id number] Normal [facility] CBC panel Auto (Bld)on 03-17 Erythrocyte distribution width (RBC) [Ratio] 13.0 % Normal 11.5-15.0 [facility] Comment on above: Order Comment: Elena adkins Type: BLOOD SPECIMENOrdering Facility: [facility] Address: [address] [place] [address] Performed By: #### 5 8410-2 ####[facility] LABORATORYCLIA [id number] [place] [address] [place] Hematocrit (Bld) [Volume fraction] 37.0 % Normal 36.0-46.0 [facility] Comment on above: Order Comment: Elena adkins Type: BLOOD SPECIMENOrdering Facility: [facility] Address: [address] [place] [address] Performed By: #### 5 8410-2 ####[facility] LABORATORYCLIA [id number] [place] [address] [place] Hemoglobin (Bld) [Mass/Vol] 12.2 g/dL Normal 11.5-15.5 [facility] Comment on above: Order Comment: Speci men Type: BLOOD SPECIMENOrdering Facility: [facility] Address: [address] [place] [address] Performed By: #### 5 8410-2 ####[facility] LABORATORYIA [id number] [address] [place] MCH (RBC) [Entitic mass] 31.0 pg Normal 26.0-34.0 [facility] Comment on above: Order Comment: Speci men Type: BLOOD SPECIMENOrdering Facility: [facility] Address: [address] [place] [address] Performed By: #### 5 8410-2 ####[facility]ITAL[facility] [id number] [address] [place] MCHC (RBC) [Mass/Vol] 33.0 g/dL Normal 30.5-36.0 [facility] Comment on above: Order Comment: Speci men Type: BLOOD SPECIMENOrdering Facility: [facility] Address: [address] [place] [address] Performed By: #### 5 8410-2 ####[facility]ITAL[facility] [id number] [address] [place] MCV (RBC) [Entitic vol] 93.9 fL Normal 80.0-100.0 [facility] Comment on above: Order Comment: Speci men Type: BLOOD SPECIMENOrdering Facility: [facility] Address: [address] [place] [address] Performed By: #### 5 8410-2 ####[facility]ITAL[facility] [id number] [address] [place] Nucleated RBC (Bld) [#/Vol] 10*3/uL Normal <0.01 [facility] Comment on above: Order Comment: Speci men Type: BLOOD SPECIMENOrdering Facility: [facility] Address: [address] [place] [address] Performed By: #### 5 8410-2 ####[facility] LABORATORYIA [id number] [facility] [place] [address] [place] Platelet mean volume (Bld) [Entitic vol] 10.1 fL Normal 9.0-12.7 [facility] Comment on above: Order Comment: Speci men Type: BLOOD SPECIMENOrdering Facility: [facility] Address: [address] [place] [address] Performed By: #### 5 8410-2 ####[facility]ORATORYIA [id number] [facility] [place] [address] [place] Platelets (Bld) [#/Vol] 218 10*3/uL Normal 150-400 [facility] Comment on above: Order Comment: Speci men Type: BLOOD SPECIMENOrdering Facility: [facility] Address: [address] [place] [address] Performed By: #### 5 8410-2 ####[facility]PITALIA [id number] [facility] [place] [address] [place] RBC (Bld) [#/Vol] 3.94 10*6/uL Normal 3.90-5.20 [facility] Comment on above: Order Comment: Speci men Type: BLOOD SPECIMENOrdering Facility: [facility] Address: [address] [place] [address] Performed By: #### 5 8410-2 ####[facility]PITALIA [id number] [facility] [place] [place] [address] [place] WBC (Bld) [#/Vol] 6.52 10*3/uL Normal 3.70-11.00 [facility] Comment on above: Order Comment: Speci men Type: BLOOD SPECIMENOrdering Facility: [facility] Address: [address] [place] [address] Performed By: #### 5 8410-2 ####[facility] HOSPITALIA [id number] [facility] [place] [address] [facility] [place] EKGon 03-17-2023 Electrocardiogram Ventricular Rate : 5 6 BPM Atrial Rate : 56 BPM P-R Interval : 135 ms QRS Duration : 114 ms Q-T Interval : 486 ms QTC Calculation(Bazett) : 470 ms Calculated P [place] : 63 degrees Calculated R [place] : 49 degrees Calculated T [place] : 23 degrees Sinus rhythm Incomplete right bundle branch block Low voltage, precordial leads Abnormal ECG Confirmed by TERRANCE CHARLTON MD ([id number]) on 03/21/2023 1:13:54 PM NAME : GRACIE JONES PID : [id number] : 1950 Gender : Female Race : ORD : Procedure Date : Mar 17 2023 21:05:01 Edit Date : Mar 21 2023 13:13:57 Diagnosis: Sinus rhythm Incomplete right bundle branch block Low voltage, precordial leads Abnormal ECG Confirmed by TERRANCE CHARLTON MD ([id number]) on 03/21/2023 1:13:54 PM Test Reason : Location : 300 : EKG 502 Overread By : TERRANCE CHARLTON MD Edited By : TERRANCE CHARLTON MD Referred By : , Acquired by : [id number], [facility] [id number] Author: Xiomara Abraham APRN.DINKER Service: Critical Care Author Type: Nurse Practitioner Type: Chg in Clinical Condition Filed: 03/17/2023 9:29 PM Note Text: EMERGENCY RESPONSE TEAM Rapid Response Date of MET Page: March 17, 2023 Time of MET Page: 2051 Requesting Provider: Bedside RN SUMMARY DIAGNOSIS, ASSESSMENT and RECOMMENDATIONS Rapid Response called for hypotension and lethargy. Patient became unresponsive and a Code Blue was called; however, patient never lost a pulse and did arouse. Upon arrival of the critical care team, the patient is lethargic but arousable. Noted to be hypotensive. 1L LR given on a pressure bag, 0.2 mg IV Narcan given as it was not immediately known whether patient received narcotics zakiya-op as she just arrived from the PACU s/p Right Hip Arthroplasty. Patient oriented and answers questions appropriately. She is bradycardic in the 50s which is her baseline. 100% on 2L NC. Initial SBP was less than 80 - please see nursing documentation. Patient rec'd 100 mcg of Neosynephrine. After several minutes after receiving the fluids, the patient's blood pressure was 142/86. Hgb 12 post-procedure. Voices no complaints other than some posterior neck pain. Plan: -Continue IVF resuscitation -Continuous tele monitoring -Avoid opioids - was updated at bedside by this LIP AND the NOM Status: Stable PLAN, DISPOSITION and OUTCOME Responded to therapy, remains on current unit under care of: the surgical team History of Present Illness: This is a 72 year old female who was admitted to the hospital today for scheduled right total hip replacement. PRIMARY REASON FOR CALL Blood Pressure: Systolic Blood Pressure < 80 or >220 or Diastolic BP>110 Acute Neurological Change: Acute change in mental status or loss of consciousness PAST MEDICAL / SURGICAL HISTORY PAST MEDICAL HISTORY Diagnosis Date Stage 3 chronic kidney disease (HCC) 12/09/2021 , PAST SURGICAL HISTORY Procedure Laterality Date SECTION HX x2 COLONOSCOPY SCREENING KERATOPLASTY ENDOTHELIAL Right 04/14/2022 KERATOPLASTY ENDOTHELIAL Left 03/17/2022 PAST SURGICAL HISTORY OF BLEPHAROPLASTY UPPER XR CERVICAL FUSION OR , Active Hospital Problems Diagnosis Primary osteoarthritis of right hip PONV (postoperative nausea and vomiting) Elevated BP without diagnosis of hypertension Stage 3 chronic kidney disease (HCC) Hyperlipidemia, unspecified MEDICATIONS Current Facility-Administered Medications Medication Dose Route Frequency ceFAZolin iv piggyback 2 g in D5W (iso-osmotic) 100 mL (ANCEF) 2 g INTRAVENOUS q 8 HR lactated ringers iv infusion 100 mL/hr INTRAVENOUS CONTINUOUS morphine 2 mg injection 2 mg INTRAVENOUS q 2 H PRN oxyCODONE IR 5 mg tab(s) (ROXICODONE) 5 mg ORAL q 3 H PRN oxyCODONE IR 5 mg tab(s) (ROXICODONE) 5 mg ORAL q 6 H PRN acetaminophen 1,000 mg tab(s) (TYLENOL) 1,000 mg ORAL q 8 H ondansetron 4 mg tab(s) (ZOFRAN) 4 mg ORAL q 6 H PRN Or ondansetron (PF) 4 mg injection (ZOFRAN) 4 mg INTRAVENOUS q 6 H PRN [START ON 03/18/2023] magnesium hydroxide 400 mg/5 mL 30 mL (MOM) 30 mL ORAL DAILY PRN aluminum-magnesium hydroxide-simethicone 200-200-20 mg/5 mL 30 mL 30 mL ORAL q 2 H PRN senna 17.2 mg tab(s) (SENOKOT) 17.2 mg ORAL AT BEDTIME meloxicam 7.5 mg tab(s) (MOBIC) 7.5 mg ORAL DAILY lactated ringers 1,000 mL iv bolus 1,000 mL INTRAVENOUS ONCE lactated ringers 1,000 mL iv bolus 1,000 mL INTRAVENOUS ONCE ALLERGIES ALLERGIES No Known Allergies PERTINENT PHYSICAL EXAM and INITIAL ASSESSMENT (For vital signs prior and during MET call, see nursing documentation) Pertinent Vital Signs at Time of MET Call: please see Rapid Response nursing form Appearance: No distress and Cooperative Airway Examination: deferred Airway Patent: Yes Breathing Evaluation: non-labored on 2L NC Breathing Adequate: Yes Circulation Evaluation: Skin Ashen and Pulses Regular Circulation Adequate: Yes Neurologic Evaluation: Drowsy GCS Evaluation: 3: To Speech, 5: Oriented 6: Obeys Motor commands Is the Level of Consciousness at Baseline: No Additional Physical Exam Findings: Head/Eyes: PERRLA Skin: warm and dry Lungs: clear Abdomen: deferred Extremities: R hip surgical dressing CDI PERTINENT DIAGNOSTICS Labs (Reviewed and include): CBC Recent Labs 03/17/23 1757 HB 12.2 HCT 37.0 RBC 3.94 WBC 6.52 PLT 218 Bedside POC: Glucose 158 EKG: Sinus Bradycardia INTERVENTIONS Basic Intervention: IVF Administration: A Bolus of LR was given. Naloxone 0.2 mg for 1 dose(s) Intervention Response: Improved Primary Team Aware/Notified: Yes This patient has a high probability of sudden, clinically significant deterioration, which requires the highest level of provider preparedness to intervene urgently. I managed/supervised life or organ supporting interventions that required frequent provider assessment. I de (more content not included)... Normal [facility] NURSING PROGon 03-17-2023 NURSING PROG HNO ID: [id number] Author: Xiomara Del Rio RN Service: Nursing Author Type: Registered Nurse Type: Nursing Progress Note Filed: 03/17/2023 11:14 PM Note Text: Event(s) / Intervention Note: PATIENT NAME: Gracie Jones [facility]/ [facility] The patient was observed having the following problems: change in mental status while RN performing assessment. Pt drowsy but arosible and answering questions. While talking, pt became unresponsive, pallor, hypotensive, not responsive to sternal rub. The time of the event occurred at: 2053. The following intervention(s) were initiated: Rapid response initiated. Angeles Abraham Critical Care YARN WRAPPER at bedside. HOB supine, medications administered per orders. (See emar and flowsheets). After the initiated interventions, the following observation(s) were made: patient appears improved. [facility] NURSING PROG HNO ID: [id number] Author: Svitlana Villatoro RN Service: Nursing Author Type: Registered Nurse Type: Nursing Progress Note Filed: 03/18/2023 12:47 AM Note Text: Transfer Note: PATIENT NAME: Gracie Jones [facility] [place] [address] Room: [place] [address] Patient transferred into room/unit 502 in stable condition. Actions taken: Patient belongings with patient. [facility] OPERATIVE NOon 03-17-2023 OPERATIVE NO HNO ID: [id number] Author: Isaiah Arriaga MD Service: Orthopaedic Surgery Author Type: Physician Type: Operative Report Filed: 03/17/2023 5:27 PM Note Text: [facility] OPERATIVE REPORT PATIENT NAME: Gracie Jones AGE: [age] year old LOG ID: [id number] Surgery Date: 03/17/2023 SURGEON: Isaiah Arriaga MD SETTER INDU[employer] HEATING EQUIPMENT: Olive Amaya PA-C, SA, her assistance consisted of assistance with retraction, positioning and closing of the wound No qualified resident physicians were available to participate in the case. PROCEDURE: RIGHT TOTAL HIP REPLACEMENT Procedure(s) (LRB): ARTHROPLASTY HIP MOSES EXTENDED STAY (Right) Anesthesia: Spinal Preop Diagnosis: Pre-Op Diagnosis Codes: * Primary osteoarthritis of right hip [M16.11] Postop Diagnosis: Same as Pre-Op Diagnosis Codes: * Primary osteoarthritis of right hip [M16.11] BMI: Estimated body mass index is 27.62 kg/m? as calculated from the following: Height as of 02/18/23: 157.5 cm (5' 2 ). Weight as of 02/18/23: 68.5 kg (151 lb). OPERATIVE INDICATIONS: This is a 72 year old year old female with osteoarthritis of the right hip. She was having severe pain in the groin/thigh. Nonoperative management has been exhausted. The decision was made to proceed with a right total hip arthroplasty. Risks, benefits, and alternatives were discussed. She expressed understanding and consented to the procedure as outlined above. The patient was seen by [facility]/ Internal Medicine for pre-operative optimization. Zaikya-operative blood management and the potential for blood transfusion were discussed with risks and options clearly outlined. The patient has consented to the use of banked allogenic blood if medically necessary. IMPLANTS: [facility] Total Hip System SIZE TYPE Acetabulum 46mm Trident 2 Screws 0 Polyethylene 36 mm Dual mobility Femur 2 standard Accolade 2 Femoral Head 22mm Metal OPERATIVE FINDINGS: There was complete loss of cartilaginous surface from the femoral head and acetabular surface with lipping osteophytes. OPERATIVE PROCEDURE: The patient was identified and brought into the Operating Room by the anesthesia and nursing team. Anesthesia was successfully performed. The patient was then positioned supine on the operating room table with a bump under the right hip. Intravenous antibiotic prophylaxis dosing was confirmed. The right lower extremity was then prepped and draped in the usual sterile fashion with Chloraprep scrub. Tranexamic acid was given for blood conservation. A surgical time-out was performed immediately preceding the incision with all personnel in the operating room; the patient identity was again confirmed, the surgical site and extremity were identified and confirmed, X-rays were reviewed, and availability of the appropriate surgical equipment was established. The hip was approached through a modified Huff-Paez approach. Dissection was carried down onto the anterior hip capsule, which was opened in an H fashion and excised. The neck of the femur was identified. Large osteophytes were osteotomized and removed from the anterior portion of the acetabulum. We then osteotomized the neck of the femur at a 45- degree angle of the AP plane approximately half a fingerbreadth above the lesser trochanter. The head was then brought out in pieces. We then did a modified partial capsulectomy off the femur and a release of the contracted short external rotators allowing us to expose the acetabulum with the assistance of the PA in our standard 4 quadrant retraction method. We reamed the acetabulum to a 36 mm size. We got into good cancellous bone with good circumferential cortical bone. We removed osteophytes from the rim of the acetabulum. A 36 mm shell Trident 2 cup was then put into the acetabulum at a 60-degree angle to the AP plane with 15 degrees of anteversion. The hip was then adducted and externally rotated and the proximal femur was brought into the wound and we rasped the stem of the femur to size 2. An Accolade 2 stem was tapped into place with excellent fit. We chose a 0 neck and a 22 mm inner diameter, and a 36 mm outer diameter poly ball. The hip was reduced, we had excellent abductor and iliopsoas tone. Wound was then copiously irrigated. We injected circumferentially about the incisional area with our Exparel pericapsular block. Instrument and sponge count was completed and confirmed correct. The would was then closed in layers and a sterile dressing was applied. The patient was stable to PACU. POSTOPERATIVE MANAGEMENT: Patient is weightbearing as tolerated. They will receive appropriate DVT prophylaxis, appropriate pain medications and 24 hours of appropriate antibiotic for infection prophylaxis. SPECIMENS: The femoral head, neck and synovium. EBL: 60 cc DRAINS: None. COUNTS: Correct. COMPLICATIONS: None. Operative Johnathan (more content not included)... Normal [facility] XR PELVIS 1V APon 03-17-2023 XR PELVIS 1V AP * * *Final Report* * * DATE OF EXAM: Mar 17 2023 6:00PM VHX [id number] - XR PELVIS 1V AP / PROCEDURE REASON: Post-operative / post-procedure assessment, asymptomatic * * * * Physician Interpretation * * * * HISTORY: Post-operative / post-procedure assessment, asymptomatic COMPARISON: None. AP single view pelvis: Post surgical changes are noted status post right total hip arthroplasty. The surgical hardware appears intact. No evidence of acute fracture or dislocation. There is air noted in the soft tissues adjacent to the right hip surgery. Tubal ligation clips are noted in the pelvis. Osteophytic spurring is present in the left hip. IMPRESSION: Post surgical changes status post right total hip arthroplasty. Towboat Captain: PSCB Transcribe Date/Time: Mar 17 2023 6:11P Dictated by : EVELYN HENDRICKS MD This examination was interpreted and the report reviewed and electronically signed by: EVELYN HENDRICKS MD on Mar 17 2023 6:13PM EST [id number] Normal [facility] - Microbiology an d Antimicrobial susceptibilityon 12-23-2022 S. aureus and MRSA panel ARLETTE+probe (Nose) Negative Negative [facility] XR HIP GENERAL 3V PELV/AP/LA T RIGHTon 12-22-2022 [facility] XR Pelvis and Hip - right AP and Lateral frogon 12-22-2022 * * *Final Report* * * DATE OF EXAM: Dec 22 2022 12:30PM LZX 5352 - XR HIP 3V PELV+ AP/LAT RT / PROCEDURE REASON: Primary osteoarthritis of right hip * * * * Physician Interpretation * * * * EXAMINATION: XR HIP 3V PELV+ AP/LAT RT PATIENT/TECHNOLOGIST PROVIDED HISTORY: rt hip pain CLINICAL INFORMATION ( PROVIDED BY ORDERING CLINICIAN) : Primary osteoarthritis of right hip TECHNIQUE: XR HIP 3V PELV+ AP/LAT RT Laterality: RIGHT Number of different views (projections): 3 M: XB_1 COMPARISON: 01/06/2022 RESULT: No acute fracture or dislocation. Severe superior joint space narrowing with marginal osteophytes, solid progressed. Minimal degenerative change of the left hip. SI joints are maintained. Degenerative changes noted in the visualized lower lumbar spine, incompletely characterized. DIVISION OF RADIOLOGY Provider, [facility] - 12/22/2022 * * *Final Report* * * DATE OF EXAM: Dec 22 2022 12:30PM LZX 5352 - XR HIP 3V PELV+ AP/LAT RT / PROCEDURE REASON: Primary osteoarthritis of right hip * * * * Physician Interpretation * * * * EXAMINATION: XR HIP 3V PELV+ AP/LAT RT PATIENT/TECHNOLOGIST PROVIDED HISTORY: rt hip pain CLINICAL INFORMATION ( PROVIDED BY ORDERING CLINICIAN) : Primary osteoarthritis of right hip TECHNIQUE: XR HIP 3V PELV+ AP/LAT RT Laterality: RIGHT Number of different views (projections): 3 M: XB_1 COMPARISON: 01/06/2022 RESULT: No acute fracture or dislocation. Severe superior joint space narrowing with marginal osteophytes, solid progressed. Minimal degenerative change of the left hip. SI joints are maintained. Degenerative changes noted in the visualized lower lumbar spine, incompletely characterized. IMPRESSION IMPRESSION: Advanced right hip osteoarthritis, slightly progressed since the prior exam. Towboat Captain: ANDREW Transcribe Date/Time: Dec 22 2022 1:20P Dictated by : SHE VERDUZCO MD This examination was interpreted and the report reviewed and electronically signed by: SHE VERDUZCO MD on Dec 22 2022 1:21PM EST [facility] Radiology Study observation (narrative) [facility] XR Pelvis and Hip - right AP and Lateral frogOrdered By: [facility] Provider on 12-22-2022 [facility] MM screening mammo BI w/CADo n 10-31-2022 MM screening mammo BI w/CAD [facility] [place] [address] [place] [address] Mammography Report Signed Patient: Gracie Jones MR#: [id number] 7 : 1950 Acct:[id number] Age/Sex: 72 / F ADM Date: 10/31/22 Loc: [place] Room: Type: [facility] Attending Dr: Lyndsay Dunbar APRN Copies to: Lyndsay Dunbar APRN Ordering Provider: Lyndsay Dunbar APRN Date of Service: 10/31/22 MM/MM screening mammo BI w/CAD: Breast cancer screening CLINICAL DATA: Screening for malignancy. BILATERAL SCREENING MAMMOGRAMS - FULL FIELD DIGITAL WITH TOMOSYNTHESIS AND CAD Tomosynthesis craniocaudal and mediolateral oblique views of both breasts were obtained using low- dose digital technique. Comparison is made to prior studies from 2017 through October 22, 2021. This examination was reviewed with the aid of CAD. The breast parenchyma is heterogeneously dense. Benign and vascular calcifications are present. There are no developing masses, typically malignant calcifications or architectural distortion. There has been no significant interval change. MM/MM screening mammo BI w/CAD IMPRESSION: NO MAMMOGRAPHIC EVIDENCE OF MALIGNANCY. ROUTINE FOLLOW-UP IS RECOMMENDED IN ONE YEAR. RESULT CODE: 2 Benign Findings(s) DENSITY CODE: 3 (approximately 51-75% glandular) FOLLOW UP: 1YR The false-negative rate of mammography is approximately 10-percent. Management of a palpable abnormality must be based on clinical grounds. Patient was entered into a reminder system with a target due date for the next mammogram. Impression dictated by: Tiana Ayers M.D.10/31/2022 2:03 PM Dictation Location: [facility] Transcribed By: CORNEL 10/31/22 1403 Dictated By: Tiana Ayers MD 10/31/22 1401 Signed By: 10/31/22 1403 Normal [facility] PROF CHEM 8 (BAS METB)on Anion gap [Moles/Vol] 10.5 mmol/L Normal [facility] Comment on above: Performed By: #### B MP #### [facility] [address] [address] [address] Allegra Heath Calcium [Mass/Vol] 9.2 mg/dL Normal 8.5-10.1 [facility] Comment on above: Performed By: #### B MP #### [facility] [address] [address] [address] Allegra Heath Chloride [Moles/Vol] 100 mmol/L Normal 98-107 [facility] Comment on above: Performed By: #### B MP #### [facility] [address] [address] [address] Allegra Heath CO2 [Moles/Vol] 29.0 mmol/L Normal 21.0-32.0 [facility] Comment on above: Performed By: #### B MP #### [facility] [address] [address] [address] Allegra Heath Creatinine [Mass/Vol] 0.88 mg/dL Normal 0.55-1.02 [facility] Comment on above: Performed By: #### B MP #### [facility] [address] [place] [address] Dr. Allegra Heath EGFR-AF BURKINAN >60 Normal >=60 [facility] Comment on above: Performed By: #### B MP #### [facility] [address] [address] [address] Allegra Heath EGFR-NON AF BURKINAN >60 Normal >=60 [facility] Comment on above: Performed By: #### B MP #### [facility] [address] [address] [address] Allegra Heath Glucose [Mass/Vol] 99 mg/dL Normal 74-106 [facility] Comment on above: Performed By: #### B MP #### [facility] [address] [address] [address] Allegra Heath Potassium [Moles/Vol] 4.5 mmol/L Normal 3.5-5.1 [facility] Comment on above: Performed By: #### B MP #### [facility] [address] [address] [address] Allegra Heath Sodium [Moles/Vol] 135 mmol/L Critically low 136-145 [facility] Comment on above: Performed By: #### B MP #### [facility] [address] [address] [address] Allegra Heath Urea nitrogen [Mass/Vol] 16.0 mg/dL Normal 7.0-18.0 [facility] Comment on above: Performed By: #### B MP #### [facility] [address] [address] [address] Allegra Heath Urea nitrogen/Creatinine [Mass ratio] 18.2 mg/mg Normal [facility] Comment on above: Performed By: #### B MP #### [facility] [address] [address] [address] Allegra Heath Family Medicine Office/Clini c Noteon 01-22-2022 Family Medicine Office/Clinic Note Chief Complaint omt hip back and sholder History of Present Illness Gracie Jones, a 71-year-old female, presents for a follow-up of several conditions and back pain. pt was instructed to add me as PCP for her [facility] chart after her last appt The contact she talked to after her last appt in the [facility] system lead the patient to believe that they didn't have to do anything to carly me access LOW BACK PAIN Today she does not have back pain. Reports intermittent stages of back pain Patient is unsure if her last manipulation helped. States any activity with her left arm causes low back pain. She contributes improvement from exercising more now. HIP ARTHRITIS She was seen by the orthopedic surgeon at [facility]. She does not have a planned date for her surgery. Her follow-up is scheduled in late 02/2022. States she does not want to take Celebrex for an extended amount of time; however, it helps her sleep at night. Currently she is only taking 1 tablet of Celebrex and not 2 tablets due to having numbness in her foot. Dr. Batista from [facility] prescribed Celebrex. CERVICAL ARTHRITIS/NECK RS Bone spurs on C4-7. It was causing numbness in her fingers. Anterior cervical discectomy and fusion performed 5 to 6 years ago. She has improved since her surgery. A possible reverse surgery shoulder replacement was discussed - but the patient is not interested in this surgery Repetitive motion causes pain. Has had physical therapy in the past - which helped somewhat . She does exercises 3 days a week for PT. EYES Plans to have two corneal transplants. CHRONIC KIDNEY DISEASE GFR on 12/04/2021 was 57. GFR in 10/2021 was 54. AST was barely elevated at 53 IU/L. Patient states her cholesterol is always very low. In 09/2021 her LDL was 95 mg/dL. Her total cholesterol was 170 mg/dL. In 03/2021 her LDL was 107 mg/dL. Patient is unsure of any family history of hypertension. Family history of COPD with her brother who was a smoker. Review of Systems PHQ Score Initial Depression Screen Score: 0 13-point ROS negative except for HPI Physical Exam Vitals & Measurements T: 36.8 ?C(Oral) HR: 61(Peripheral) BP: 130/90 SpO2: 99% HT: 156.5 cm HT: 156.5 cm WT: 66.3 kg WT: 66.3 kg BMI: 27.07 Constitutional: Vital signs reviewed; Gracie is well nourished, no acute distress Lungs: Clear to auscultation, non-labored respiration Heart: Normal rate and rhythm, normal peripheral perfusion Abd: Deferred : Deferred MSK/ Extremities: Normal gait and station - room for improvement on her posture Skin: Warm, dry Neurologic: Awake, alert and oriented Psychiatric: Cooperative, appropriate mood and affect Assessment/Plan 1. Chronic radicular lumbar pain (M54.16: Radiculopathy, lumbar region) Chronic Not improving as expected It's difficult to say if this is a MSK issue vs other given the intermittent nature of it It does seem to cause the patient a great deal of frustration Given the 30+ year history of symptoms, I question if we are dealing more with a chronic pain disorder fibromyalgia vs other Discussed coping and managing expectations F/u 1 month 2. Shoulder arthritis (M19.019: Primary osteoarthritis, unspecified shoulder) Chronic Stable Recommended that she take Celebrex every 2 days until her labs are rechecked F/u PRN 3. Hip arthritis (M16.10: Unilateral primary osteoarthritis, unspecified hip) Historical Unable to confirm as I do not have access to her medical records She may have hip arthritis, but I don't know that I would support surgery given her exam findings Orthopedic follow-up appointment scheduled in late 02/2022. Discussed my thoughts on this We discussed the importance of bringing certain information with her to appointments when she is seeing providers in many different systems Encouraged her to get access to MyChart through [facility] Recommended that she take Celebrex every 2 days until her labs are rechecked Briefly discussed how duloxetine is FDA approved for arthritis pain F/u PRN 4. Cervical arthritis (M47.812: Spondylosis without myelopathy or radiculopathy, cervical region) Chronic A possible reverse surgery shoulder replacement was discussed F/u PRN 5. Stage 3 chronic kidney disease (N18.30: Chronic kidney disease, stage 3 unspecified) Chronic Stable F/u PRN Adult BMI 27.0-27.9 kg/sq m (Z68.27: Body mass index [BMI] 27.0-27.9, adult) The standard range for ages 18 and older is >=18.5 and < 25 kg/m2. Your BMI today was above this range, this falls in the overweight to obese category and there are medical benefits to weight loss. We can offer counselling, referral, and/or medical support in addressing this problem. Your BMI and weight management will be followed at subsequent visits. Other chronic pain (G89.29: Other chronic pain) Chronic Continue Celebrex as discussed above F/u PRN ATTESTATION: This note has been created using Alissa Terry (more content not included)... Normal [facility] Comment on above: Result Comment: Elec tronically Signed By: Carl Agudelo DO.jaime\Date and Time Signed: 01/22/22 20:02 EDT Patient Educationon 01-23-20 Patient Education Orthopedics Radicular Pain Radicular pain is a type of pain that spreads from your back or neck along a spinal nerve. Spinal nerves are nerves that leave the spinal cord and go to the muscles. Radicular pain is sometimes called radiculopathy, radiculitis, or a pinched nerve. When you have this type of pain, you may also have weakness, numbness, or tingling in the area of your body that is supplied by the nerve. The pain may feel sharp and burning. Depending on which spinal nerve is affected, the pain may occur in the: ? Neck area (cervical radicular pain). You may also feel pain, numbness, weakness, or tingling in the arms. ? Mid-spine area (thoracic radicular pain). You would feel this pain in the back and chest. This type is rare. ? Lower back area (lumbar radicular pain). You would feel this pain as low back pain. You may feel pain, numbness, weakness, or tingling in the buttocks or legs. Sciatica is a type of lumbar radicular pain that shoots down the back of the leg. Radicular pain occurs when one of the spinal nerves becomes irritated or squeezed (compressed). It is often caused by something pushing on a spinal nerve, such as one of the bones of the spine (vertebrae) or one of the round cushions between vertebrae (intervertebral disks). This can result from: ? An injury. ? Wear and tear or aging of a disk. ? The growth of a bone spur that pushes on the nerve. Radicular pain often goes away when you follow instructions from your health care provider for relieving pain at home. Follow these instructions at home: Managing pain ? If directed, put ice on the affected area: ? Put ice in a plastic bag. ? Place a towel between your skin and the bag. ? Leave the ice on for 20 minutes, 2?3 times a day. ? If directed, apply heat to the affected area as often as told by your health care provider. Use the heat source that your health care provider recommends, such as a moist heat pack or a heating pad. ? Place a towel between your skin and the heat source. ? Leave the heat on for 20?30 minutes. ? Remove the heat if your skin turns bright red. This is especially important if you are unable to feel pain, heat, or cold. You may have a greater risk of getting burned. Activity ? Do not sit or rest in bed for long periods of time. ? Try to stay as active as possible. Ask your health care provider what type of exercise or activity is best for you. ? Avoid activities that make your pain worse, such as bending and lifting. ? Do not lift anything that is heavier than 10 lb (4.5 kg), or the limit that you are told, until your health care provider says that it is safe. ? Practice using proper technique when lifting items. Proper lifting technique involves bending your knees and rising up. ? Do strength and dctjy-kc-dsoaty exercises only as told by your health care provider or physical therapist. General instructions ? Take kcbf-osm-auqrqkx and prescription medicines only as told by your health care provider. ? Pay attention to any changes in your symptoms. ? Keep all follow-up visits as told by your health care provider. This is important. ? Your health care provider may send you to a physical therapist to help with this pain. Contact a health care provider if: ? Your pain and other symptoms get worse. ? Your pain medicine is not helping. ? Your pain has not improved after a few weeks of home care. ? You have a fever. Get help right away if: ? You have severe pain, weakness, or numbness. ? You have difficulty with bladder or bowel control. Summary ? Radicular pain is a type of pain that spreads from your back or neck along a spinal nerve. ? When you have radicular pain, you may also have weakness, numbness, or tingling in the area of your body that is supplied by the nerve. ? The pain may feel sharp or burning. ? Radicular pain may be treated with ice, heat, medicines, or physical therapy. This information is not intended to replace advice given to you by your health care provider. Make sure you discuss any questions you have with your health care provider. Document Released: 06/11/2005 Document Revised: 11/16/2018 Document Reviewed: 11/16/2018 Elsevier Patient Education ? 2020 [employer] Normal [facility] XR HIP GENERAL 3V PELV/AP/LA T RIGHTon 01-06-2022 [facility] XR Pelvis and Hip - right AP and Lateral frogon 01-06-2022 IMPRESSION: MODERATE DEGENERATIVE CHANGES RIGHT HIP, NOT SIGNIFICANTLY CHANGED Towboat Captain: ANDREW Transcribe Date/Time: Jan 06 2022 4:26P Dictated by : PIPO MELENDEZ MD This examination was interpreted and the report reviewed and electronically signed by: PIPO MELENDEZ MD on Jan 06 2022 4:26PM [facility] DIVISION OF RADIOLOGY * * *Final Report* * * DATE OF EXAM: Jan 06 2022 2:10PM LZX 5352 - XR HIP 3V PELV+ AP/LAT RT / PROCEDURE REASON: Primary osteoarthritis of right hip * * * * Physician Interpretation * * * * HISTORY: Primary osteoarthritis of right hip . CHRONIC RT HIP PAIN TECHNIQUE: XR HIP 3V PELV+ AP/LAT RT COMPARISON: 10/25/2021 RESULT: No significant interval change. Moderate degenerative arthritis in the right hip with joint space narrowing and marginal osteophytes. Minimal degenerative changes in the left hip with small osteophytes. Degenerative changes also noted in the lower lumbar spine. Sacroiliac joints and pubic symphysis within normal limits. No fractures. Tubal ligation clips in the pelvis. No other significant abnormality. --- DIVISION OF RADIOLOGY Provider, [facility] - 01/06/2022 * * *Final Report* * * DATE OF EXAM: Jan 06 2022 2:10PM LZX 5352 - XR HIP 3V PELV+ AP/LAT RT / PROCEDURE REASON: Primary osteoarthritis of right hip * * * * Physician Interpretation * * * * HISTORY: Primary osteoarthritis of right hip . CHRONIC RT HIP PAIN TECHNIQUE: XR HIP 3V PELV+ AP/LAT RT COMPARISON: 10/25/2021 RESULT: No significant interval change. Moderate degenerative arthritis in the right hip with joint space narrowing and marginal osteophytes. Minimal degenerative changes in the left hip with small osteophytes. Degenerative changes also noted in the lower lumbar spine. Sacroiliac joints and pubic symphysis within normal limits. No fractures. Tubal ligation clips in the pelvis. No other significant abnormality. --- IMPRESSION IMPRESSION: MODERATE DEGENERATIVE CHANGES RIGHT HIP, NOT SIGNIFICANTLY CHANGED Towboat Captain: PSCB Transcribe Date/Time: Jan 06 2022 4:26P Dictated by : PIPO MELENDEZ MD This examination was interpreted and the report reviewed and electronically signed by: PIPO MELENDEZ MD on Jan 06 2022 4:26PM EST [facility] Radiology Study observation (narrative) [facility] XR Pelvis and Hip - right AP and Lateral frogOrdered By: [facility] Provider on 01-06-2022 [facility] Transfer Inon 12-30-2021 Transfer In [id number]:127 Normal [facility] Auth for Release of Medical Recordson 12-26-2021 Auth for Release of Medical Records [id number]:127 Normal [facility] Family Medicine Office/Clini c Noteon 12-26-2021 Family Medicine Office/Clinic Note Chief Complaint right sholder pain , right hip.a back pain . PT never helped History of Present Illness Gracie Jones, a 71-year-old female, presents to establish care. Current PCP - GRACE Núñez; [facility]. Pending corneal transplants. CERVICAL ARTHRITIS/NECK Bone spurs on C4-7. It was causing numbness in her fingers. Anterior cervical discectomy and fusion performed 5 to 6 years ago. She has improved since her surgery. SHOULDER ARTHRITIS Possibly needs a reverse shoulder replacement. She wants to avoid shoulder surgery. Seen at the [facility] a couple of months ago. An x-ray was completed. She was previously seen by a physician in [place]. He left and she has not been seen since. Was found approximately 5 to 6 years ago. HIP ARTHRITIS Today she has the most discomfort in her hip. Hip pain started 6 years ago. Possibly needs a hip replacement. She was seen by orthopedics at [facility]. Plans to see the orthopedic surgeon on 12/31/2021. Started Celebrex approximately 1 week ago; however, it has not been helpful. She previously had a hip injection until she had a bad reaction where she felt like people were sitting on my chest . Her last injection was 3 years ago. She does not recall who she was seen by at that time. She thinks she only received steroids. Hip dysplasia. Has had several x-rays. Tylenol is not effective. BACK PAIN Left lumbar region. Started 30 years ago. States it does not appear on x-rays. The pain did not resolve for approximately 1 year; however, she did have less pain. CHRONIC KIDNEY DISEASE Diagnosed a couple years ago. Recommended to stop medications, aside from Celebrex. States her kidney and liver function has improved. Her GFR was below 60%. She took a lot of aspirin and ibuprofen for her back pain that could have been a factor. Review of Systems PHQ Score Initial Depression Screen Score: 0 13 point ROS negative except for HPI Physical Exam Vitals & Measurements T: 37.2 ?C(Oral) HR: 66(Peripheral) BP: 120/80 SpO2: 98% HT: 156.5 cm HT: 156.5 cm WT: 65.9 kg WT: 65.9 kg BMI: 26.91 Constitutional: Vital signs reviewed; 71 is well nourished, no acute distress Head: Atraumatic, normocephalic Neck: Trachea is midline, no tenderness Eye: EOMI, normal conjunctiva ENT: Moist oral mucosa, sclera clear Lungs: Clear to auscultation, non-labored respiration Heart: Normal rate and rhythm, normal peripheral perfusion Abd: Deferred : Deferred Extremities: Normal gait and station; lumbar AROM, cervical AROM is WNL - tight bilateral paraspinals Bilateral shoulder AROM is grossly WNL; will perform a more extensive exam at f/u Neurologic: Awake, alert and oriented, speech is normal, no focal deficits, CN II-XII grossly intact Psychiatric: Cooperative, pleasant - fastidious; she asked many questions Procedure Osteopathic Manipulation Cervical Spine: Reduced range of motion, exquisite tenderness at the insertion of the scalene on rib 1 and at C7 on right - treated with BLT and FPR - with objective and subjective improvement Thoracic Spine: Tenderness combined with chronic and acute tissue texture changes of the trapezius, rhomboid on the right - treated with myofascial, BLT and FPR - with objective and subjective improvement Lumbar Spine: bilateral paraspinal restriction and tenderness with NO QL tightness - treated with myofascial, BLT and FPR - with objective and subjective improvement Sacral: bilat SI dysfunction - treated with BLT and FPR - with objective and subjective improvement Lower Extremity: right-sided hamstring AND adductor restriction and psoas restriction - treated with BLT and FPR - with objective and subjective improvement Assessment/Plan 1. Hip arthritis (M16.10: Unilateral primary osteoarthritis, unspecified hip) Historical Unable to confirm as I don't have access to her medical records However, internal rotation of bilateral hips is not painful and scour test is negative She may have hip arthritis, but I don't know that I would support surgery given her exam findings Orthopedic appointment scheduled Discussed my thoughts on this *Late in the appt she admits to CKD; she couldn't confirm the numbers but it does cause me some pause we discussed the importance of bringing certain information with her to appts when she is seeing providers in many different systems Encouraged her to get access to [employer] through [facility] I also encouraged her to bring a list of her providers as she couldn't recall the names of any of her providers Continue Celebrex if GFR is appropriate For me to really provide adequate care for this patient, I would like to review her outside records If she has CKD, we would want to consider non-NSAIDs Briefly discussed how duloxetine is FDA approved for arthritis pain Discussed my prerogative to avoid opioids F/u in 1 month if needed 2. Shoulder arthritis (M1 (more content not included)... Normal [facility] Comment on above: Result Comment: Elec tronically Signed By: Carl Agudelo DO\.jaime\Date and Time Signed: 12/26/21 12:05 EDT\.br\Electronically Co-Signed By: Mary Ann Villatoro.jaime\Date and Time Co-Signed: 12/25/21 18:43 EDT Formson 12-26-2021 Forms [id number] Normal [facility] Ambulatory Visit Summaryon 0 12-25-2021 Ambulatory Visit Summary GRACIE JONES :1950 Visit Date:12/25/2021 Ambulatory Visit Instructions Your Diagnosis Hip arthritis Shoulder arthritis Chronic radicular lumbar pain Stage 3 chronic kidney disease Lower limb region somatic dysfunction Sacral region somatic dysfunction Lumbar region somatic dysfunction Thoracic region somatic dysfunction Adult BMI 26.0-26.9 kg/sq m Other chronic pain Your Care Team Attending Physician - Carl Agudelo DO Primary Care Physician - LYNDSAY DUNBAR CNP This Is Your Medications List Contact prescribing physician if questions or concerns celecoxib (Celebrex) ergocalciferol (Vitamin D) phytonadione (Vitamin K 5 mg Tab) Procedures Performed section, Neck pain, Tubal ligation. Discharge Vitals Temperature (Oral) 37.2 ?C Heart Rate (Peripheral) 66 Blood Pressure 120/80 Height 156.5 cm Height 156.5 cm Weight 65.9 kg Weight 65.9 kg BMI 26.91 What to do next Scheduled Follow-Up Appointments Thursday 2:20 PM EDT With: Carl Agudelo DO Where: [facility] Primary Care Normal [facility] Patient Educationon 12-26-19 Patient Education Orthopedics Arthritis Arthritis means joint pain. It can also mean joint disease. A joint is a place where bones come together. There are more than 100 types of arthritis. What are the causes? This condition may be caused by: ? Wear and tear of a joint. This is the most common cause. ? A lot of acid in the blood, which leads to pain in the joint (gout). ? Pain and swelling (inflammation) in a joint. ? Infection of a joint. ? Injuries in the joint. ? A reaction to medicines (allergy). In some cases, the cause may not be known. What are the signs or symptoms? Symptoms of this condition include: ? Redness at a joint. ? Swelling at a joint. ? Stiffness at a joint. ? Warmth coming from the joint. ? A fever. ? A feeling of being sick. How is this treated? This condition may be treated with: ? Treating the cause, if it is known. ? Rest. ? Raising (elevating) the joint. ? Putting cold or hot packs on the joint. ? Medicines to treat symptoms and reduce pain and swelling. ? Shots of medicines (cortisone) into the joint. You may also be told to make changes in your life, such as doing exercises and losing weight. Follow these instructions at home: Medicines ? Take lssn-fnj-xxxluza and prescription medicines only as told by your doctor. ? Do not take aspirin for pain if your doctor says that you may have gout. Activity ? Rest your joint if your doctor tells you to. ? Avoid activities that make the pain worse. ? Exercise your joint regularly as told by your doctor. Try doing exercises like: ? Swimming. ? Water aerobics. ? Biking. ? Walking. Managing pain, stiffness, and swelling ? If told, put ice on the affected area. ? Put ice in a plastic bag. ? Place a towel between your skin and the bag. ? Leave the ice on for 20 minutes, 2?3 times per day. ? If your joint is swollen, raise (elevate) it above the level of your heart if told by your doctor. ? If your joint feels stiff in the morning, try taking a warm shower. ? If told, put heat on the affected area. Do this as often as told by your doctor. Use the heat source that your doctor recommends, such as a moist heat pack or a heating pad. If you have diabetes, do not apply heat without asking your doctor. To apply heat: ? Place a towel between your skin and the heat source. ? Leave the heat on for 20?30 minutes. ? Remove the heat if your skin turns bright red. This is very important if you are unable to feel pain, heat, or cold. You may have a greater risk of getting burned. General instructions ? Do not use any products that contain nicotine or tobacco, such as cigarettes, e-cigarettes, and chewing tobacco. If you need help quitting, ask your doctor. ? Keep all follow-up visits as told by your doctor. This is important. Contact a doctor if: ? The pain gets worse. ? You have a fever. Get help right away if: ? You have very bad pain in your joint. ? You have swelling in your joint. ? Your joint is red. ? Many joints become painful and swollen. ? You have very bad back pain. ? Your leg is very weak. ? You cannot control your pee (urine) or poop (stool). Summary ? Arthritis means joint pain. It can also mean joint disease. A joint is a place where bones come together. ? The most common cause of this condition is wear and tear of a joint. ? Symptoms of this condition include redness, swelling, or stiffness of the joint. ? This condition is treated with rest, raising the joint, medicines, and putting cold or hot packs on the joint. ? Follow your doctor's instructions about medicines, activity, exercises, and other home care treatments. This information is not intended to replace advice given to you by your health care provider. Make sure you discuss any questions you have with your health care provider. Document Released: 07/29/2010 Document Revised: 04/11/2019 Document Reviewed: 04/11/2019 [employer] Patient Education ? 2019 [employer]. Normal [facility] LYME DISEASE AB EIA W REFLEX on 12-05-2021 Lyme Total Antibody,EIA Negative Normal Negative [facility] Comment on above: Result Comment: Lyme Antibody Negative No laboratory evidence of infection with B. burgdorferi (Lyme disease). Negative results may occur in patients recently infected (greater than or equal to 14 days) with B. burgdorferi. If recent infection is suspected, repeat testing on a new sample collected in 7 to 14 days is recommended. Performed By: #### L YMA #### [facility] [address] [place] [address] Dr. Allegra Heath PROF 14(COMP METB)on 022 Albumin [Mass/Vol] 3.7 g/dL Normal 3.4-5.0 [facility] Comment on above: Performed By: #### C MP #### [facility] [address] [place] [address] Dr. Allegra Heath Albumin/Globulin [Mass ratio] 1.2 {ratio} Normal [facility] Comment on above: Performed By: #### C MP #### [facility] [address] [place] [address] Dr. Allegra Heath ALP [Catalytic activity/Vol] 75 U/L Normal 46-116 [facility] Comment on above: Performed By: #### C MP #### [facility] [address] [place] [address] Dr. Allegra Heath ALT [Catalytic activity/Vol] 42 U/L Normal 14-59 [facility] Comment on above: Performed By: #### C MP #### [facility] [address] [place] [address] Dr. Allegra Heath Anion gap [Moles/Vol] 11.5 mmol/L Normal Th [facility] Comment on above: Performed By: #### C MP #### [facility] [address] [place] [address] Dr. Allegra Heath AST [Catalytic activity/Vol] 31 U/L Normal 15-37 [facility] Comment on above: Performed By: #### C MP #### [facility] [address] [address] [address] Allegra Heath Bilirubin [Mass/Vol] 0.8 mg/dL Normal 0.2-1.0 [facility] Comment on above: Performed By: #### C MP #### [facility] [address] [address] [address] Allegra Heath Calcium [Mass/Vol] 9.0 mg/dL Normal 8.5-10.1 [facility] Comment on above: Performed By: #### C MP #### [facility] [address] [place] [address] Dr. Allegra Heath Chloride [Moles/Vol] 103 mmol/L Normal 98-107 [facility] Comment on above: Performed By: #### C MP #### [facility] [address] [place] [address] Dr. Allegra Heath CO2 [Moles/Vol] 27.6 mmol/L Normal 21.0-32.0 [facility] Comment on above: Performed By: #### C MP #### [facility] [address] [address] [address] Allegra Heath Creatinine [Mass/Vol] 0.97 mg/dL Normal 0.55-1.02 [facility] Comment on above: Performed By: #### C MP #### [facility] [address] [address] [address] Allegra Heath EGFR-AF BURKINAN >60 Normal >=60 [facility] Comment on above: Performed By: #### C MP #### [facility] [address] [place] [address] Dr. Allegra Haeth EGFR-NON AF BURKINAN 57 mL/min/1.73m2 Critically low >=60 [facility] Comment on above: Performed By: #### C MP #### [facility] [address] [address] [address] Allegra Heath Globulin (S) [Mass/Vol] 3.1 g/dL Normal [facility] Comment on above: Performed By: #### C MP #### [facility] [address] [address] [address] Allegra Heath Glucose [Mass/Vol] 96 mg/dL Normal 74-106 [facility] Comment on above: Performed By: #### C MP #### [facility] [address] [address] [address] Allegra Heath Potassium [Moles/Vol] 4.1 mmol/L Normal 3.5-5.1 [facility] Comment on above: Performed By: #### C MP #### [facility] [address] [address] [address] Allegra Heath Protein [Mass/Vol] 6.8 g/dL Normal 6.4-8.2 [facility] Comment on above: Performed By: #### C MP #### [facility] [address] [address] [address] Allegra Heath Sodium [Moles/Vol] 138 mmol/L Normal 136-145 [facility] Comment on above: Performed By: #### C MP #### [facility] [address] [address] [address] Allegra Heath Urea nitrogen [Mass/Vol] 14.0 mg/dL Normal 7.0-18.0 [facility] Comment on above: Performed By: #### C MP #### [facility] [address] [address] [address] Allegra Heath Urea nitrogen/Creatinine [Mass ratio] 14.4 mg/mg Normal [facility] Comment on above: Performed By: #### C MP #### [facility] [address] [address] [address] Allegra Heath XR Shoulder - right 3 Viewso n 11-05-2021 Radiology Study observation (narrative) [facility] IMPRESSION: Findings consistent with chronic rotator cuff tear. Mild degenerative change of the acromioclavicular joint. Towboat Captain: PSCB Transcribe Date/Time: Nov 05 2021 1:29P Dictated by : SHE VERDUZCO MD This examination was interpreted and the report reviewed and electronically signed by: SHE VERDUZCO MD on Nov 05 2021 1:30PM EST [facility]_DO_NOT_USE_ DIVISION OF RADIOLOGY * * *Final Report* * * DATE OF EXAM: Nov 05 2021 1:16PM LZX 5253 - XR SHLDR >/=3V AP/LUIS ENRIQUE AP/OTHR RT / PROCEDURE REASON: Pain * * * * Physician Interpretation * * * * EXAMINATION: XR SHLDR >/=3V AP/LUIS ENRIQUE AP/OTHR RT PATIENT/TECHNOLOGIST PROVIDED HISTORY: CHRONIC RT SHOULDER PAIN CLINICAL INFORMATION ( PROVIDED BY ORDERING CLINICIAN) : Pain TECHNIQUE: XR SHLDR >/=3V AP/LUIS ENRIQUE AP/OTHR RT Laterality: RIGHT Number of different views (projections): 4 M: XB_1 COMPARISON: None RESULT: No acute fracture or dislocation. Glenohumeral joint space is maintained. Glenohumeral joint space is preserved. The acromiohumeral interval is narrowed with mild superior subluxation of the humeral head. Mild degenerative change of the acromioclavicular joint and small subacromial bone spur. [facility]_DO_NOT_USE_ DIVISION OF RADIOLOGY Provider, [facility] - 11/05/2021 * * *Final Report* * * DATE OF EXAM: Nov 05 2021 1:16PM LZX 5253 - XR SHLDR >/=3V AP/LUIS ENRIQUE AP/OTHR RT / PROCEDURE REASON: Pain * * * * Physician Interpretation * * * * EXAMINATION: XR SHLDR >/=3V AP/LUIS ENRIQUE AP/OTHR RT PATIENT/TECHNOLOGIST PROVIDED HISTORY: CHRONIC RT SHOULDER PAIN CLINICAL INFORMATION ( PROVIDED BY ORDERING CLINICIAN) : Pain TECHNIQUE: XR SHLDR >/=3V AP/LUIS ENRIQUE AP/OTHR RT Laterality: RIGHT Number of different views (projections): 4 M: XB_1 COMPARISON: None RESULT: No acute fracture or dislocation. Glenohumeral joint space is maintained. Glenohumeral joint space is preserved. The acromiohumeral interval is narrowed with mild superior subluxation of the humeral head. Mild degenerative change of the acromioclavicular joint and small subacromial bone spur. IMPRESSION IMPRESSION: Findings consistent with chronic rotator cuff tear. Mild degenerative change of the acromioclavicular joint. Towboat Captain: ANDREW Transcribe Date/Time: Nov 05 2021 1:29P Dictated by : SHE VERDUZCO MD This examination was interpreted and the report reviewed and electronically signed by: SHE VERDUZCO MD on Nov 05 2021 1:30PM EST [facility] XR Shoulder - right 3 ViewsO rdered By: [facility] Provider on 11-05-2021 [facility] XR Pelvis and Hip - right AP and Lateral frogon 10-25-2021 IMPRESSION: Right hip osteoarthritis. Towboat Captain: ANDREW Transcribe Date/Time: Oct 25 2021 2:22P Dictated by : FLAVIA ODELL MD This examination was interpreted and the report reviewed and electronically signed by: FLAVIA ODELL MD on Oct 25 2021 2:23PM EST [facility]_DO_NOT_USE_ DIVISION OF RADIOLOGY * * *Final Report* * * DATE OF EXAM: Oct 25 2021 2:12PM LZX 5352 - XR HIP 3V PELV+ AP/LAT RT / PROCEDURE REASON: Pain * * * * Physician Interpretation * * * * HISTORY: Pain . rt hip pain TECHNIQUE: XR HIP 3V PELV+ AP/LAT RT Laterality: RIGHT Number of different views (projections): 3 COMPARISON: None RESULT: Mild to moderate narrowing of the right hip joint space with marginal sclerosis and osteophytes. Left hip joint space is maintained. Pubic symphysis and sacral iliac joints are intact. Degenerative changes of the included lower spine. Mild bilateral pelvic and greater trochanteric enthesopathy. Tubal ligation clips overlie the pelvis. [facility]_DO_NOT_USE_ DIVISION OF RADIOLOGY Provider, Edis Sanches [facility] - 10/25/2021 * * *Final Report* * * DATE OF EXAM: Oct 25 2021 2:12PM LZX 5352 - XR HIP 3V PELV+ AP/LAT RT / PROCEDURE REASON: Pain * * * * Physician Interpretation * * * * HISTORY: Pain . rt hip pain TECHNIQUE: XR HIP 3V PELV+ AP/LAT RT Laterality: RIGHT Number of different views (projections): 3 COMPARISON: None RESULT: Mild to moderate narrowing of the right hip joint space with marginal sclerosis and osteophytes. Left hip joint space is maintained. Pubic symphysis and sacral iliac joints are intact. Degenerative changes of the included lower spine. Mild bilateral pelvic and greater trochanteric enthesopathy. Tubal ligation clips overlie the pelvis. IMPRESSION IMPRESSION: Right hip osteoarthritis. Towboat Captain: PSCBarbara Transcribe Date/Time: Oct 25 2021 2:22P Dictated by : FLAVIA ODELL MD This examination was interpreted and the report reviewed and electronically signed by: FLAVIA ODELL MD on Oct 25 2021 2:23PM [facility] Radiology Study observation (narrative) [facility] XR Pelvis and Hip - right AP and Lateral frogOrdered By: [facility] Provider on 10-25-2021 [facility] LIPID PROFILEon 10-04-2021 CHOL-HDL RATIO NORM SEE BELOW Normal [facility] Comment on above: Result Comment: 3.3 - 4.4 LOW RISK 4.4 - 7.1 AVERAGE RISK 7.1 - 11.0 MODERATE RISK >11.0 HIGH RISK Performed By: #### C MP, LIPID #### [facility] [address] [place] [address] Dr. Allegra Heath Cholesterol [Mass/Vol] 170 mg/dL Normal <=200 [facility] Comment on above: Performed By: #### C MP, LIPID #### [facility] [address] [address] [address] Allegra Heath Cholesterol in HDL [Mass/Vol] 64 mg/dL Critically high 40-60 [facility] Comment on above: Performed By: #### C MP, LIPID #### [facility] [address] [address] [address] Allegra Heath Cholesterol in LDL [Mass/Vol] 95.2 mg/dL Normal [facility] Comment on above: Performed By: #### C MP, LIPID #### [facility] [address] [address] [address] Allegra Heath Cholesterol.total/Cho lesterol in HDL [Mass ratio] 2.7 {ratio} Normal [facility] Comment on above: Performed By: #### C MP, LIPID #### [facility] [address] [address] [address] Allegra Heath HDL NORMAL > or = 60 mg/dl - LO W CARDIOVASCULAR RISK <40 mg/dl - HIGH CARDIOVASCULAR RISK Normal [facility] Comment on above: Performed By: #### C MP, LIPID #### [facility] [address] [address] [address] Allegra Heath LDL CALC NORMAL SEE BELOW Normal [facility] Comment on above: Result Comment: <100 mg/dl OPTIMAL 100 - 129 mg/dl NEAR OR ABOVE OPTIMAL 130 - 159 mg/dl BORDERLINE HIGH 160 - 189 mg/dl HIGH >190 mg/dl VERY HIGH Performed By: #### C MP, LIPID #### [facility] [address] [address] [address] Allegra Heath Triglyceride [Mass/Vol] 54 mg/dL Normal <=150 [facility] Comment on above: Performed By: #### C MP, LIPID #### [facility] [address] [address] [address] Allegra Heath VLDL CALC 10.8 mg/dL Normal [facility] Comment on above: Performed By: #### C MP, LIPID #### [facility] [address] [address] [address] Allegra Heath PROF 14(COMP METB)on 022 Albumin [Mass/Vol] 3.7 g/dL Normal 3.4-5.0 [facility] Comment on above: Performed By: #### C MP, LIPID #### [facility] [address] [address] [address] Allegra Heath Albumin/Globulin [Mass ratio] 1.2 {ratio} Normal [facility] Comment on above: Performed By: #### C MP, LIPID #### [facility] [address] [address] [address] Allegra Heath ALP [Catalytic activity/Vol] 80 U/L Normal 46-116 [facility] Comment on above: Performed By: #### C MP, LIPID #### [facility] [address] [address] [address] Allegra Heath ALT [Catalytic activity/Vol] 58 U/L Normal 14-59 [facility] Comment on above: Performed By: #### C MP, LIPID #### [facility] [address] [address] [address] Allegra Heath Anion gap [Moles/Vol] 11.8 mmol/L Normal Th [facility] Comment on above: Performed By: #### C MP, LIPID #### [facility] [address] [address] [address] Allegra Heath AST [Catalytic activity/Vol] 53 U/L Critically high 15-37 [facility] Comment on above: Performed By: #### C MP, LIPID #### [facility] [address] [address] [address] Allegra Heath Bilirubin [Mass/Vol] 0.8 mg/dL Normal 0.2-1.0 [facility] Comment on above: Performed By: #### C MP, LIPID #### [facility] [address] [address] [address] Allegra Heath Calcium [Mass/Vol] 9.1 mg/dL Normal 8.5-10.1 [facility] Comment on above: Performed By: #### C MP, LIPID #### [facility] [address] [address] [address] Allegra Heath Chloride [Moles/Vol] 102 mmol/L Normal 98-107 [facility] Comment on above: Performed By: #### C MP, LIPID #### [facility] [address] [address] [address] Allegra Heath CO2 [Moles/Vol] 27.1 mmol/L Normal 21.0-32.0 [facility] Comment on above: Performed By: #### C MP, LIPID #### [facility] [address] [address] [address] Allegra Heath Creatinine [Mass/Vol] 1.02 mg/dL Normal 0.55-1.02 [facility] Comment on above: Performed By: #### C MP, LIPID #### [facility] [address] [address] [address] Allegra Heath EGFR-AF BURKINAN >60 Normal >=60 [facility] Comment on above: Performed By: #### C MP, LIPID #### [facility] [address] [address] [address] Allegra Heath EGFR-NON AF BURKINAN 54 mL/min/1.73m2 Critically low >=60 [facility] Comment on above: Performed By: #### C MP, LIPID #### [facility] [address] [address] [address] Allegra Heath Globulin (S) [Mass/Vol] 3.1 g/dL Normal [facility] Comment on above: Performed By: #### C MP, LIPID #### [facility] [address] [address] [address] Allegra Heath Glucose [Mass/Vol] 92 mg/dL Normal 74-106 [facility] Comment on above: Performed By: #### C MP, LIPID #### [facility] [address] [address] [address] Allegra Heath Potassium [Moles/Vol] 3.9 mmol/L Normal 3.5-5.1 [facility] Comment on above: Performed By: #### C MP, LIPID #### [facility] [address] [address] [address] Allegra Heath Protein [Mass/Vol] 6.8 g/dL Normal 6.4-8.2 [facility] Comment on above: Performed By: #### C MP, LIPID #### [facility] [address] [address] [address] Allegra Heath Sodium [Moles/Vol] 137 mmol/L Normal 136-145 [facility] Comment on above: Performed By: #### C MP, LIPID #### [facility] [address] [address] [address] Allegra Heath Urea nitrogen [Mass/Vol] 16.0 mg/dL Normal 7.0-18.0 [facility] Comment on above: Performed By: #### C MP, LIPID #### [facility] [address] [address] [address] Allegra Heath Urea nitrogen/Creatinine [Mass ratio] 15.7 mg/mg Normal [facility] Comment on above: Performed By: #### C MP, LIPID #### [facility] [id number] Allegra Heath No Panel Information [facility] Vital Signs Date Time Vital Sign Value Performing Clinician Facility 2024 10:32-0500 Body height 157.48 cm [facility] 2024 10:32-0500 Body mass index (BMI) [Ratio] 28.9 kg/m2 [facility] 2024 10:32-0500 Body temperature 97.5 [degF] [facility] 2024 10:32-0500 Body weight 71.66 kg [facility] 2024 10:32-0500 Diastolic blood pressure 78 mm[Hg] [facility] 2024 10:32-0500 Heart rate 67 /min [facility] 2024 10:32-0500 Respiratory rate 20 /min [facility] 2024 10:32-0500 SaO2% (BldA) [Mass fraction] 98 % [facility] 2024 10:32-0500 Systolic blood pressure 120 mm[Hg] [facility] 03-28-2024 08:47-0500 Body height 157.5 cm Olive Scotch PA-C Work Phone: [facility] 03-28-2024 08:47-0500 Body mass index (BMI) [Ratio] 29.08 kg/m2 Olive Scotch PA-C Work Phone: [facility] 03-28-2024 08:47-0500 Body weight 72.12 kg Olive Scotch PA-C Work Phone: [facility] 02-16-2024 10:15-0400 Body height 157.5 cm Kota Bonilla MD Work Phone: [facility] 02-16-2024 10:15-0400 Body mass index (BMI) [Ratio] 28.35 kg/m2 Kota Bonilla MD Work Phone: [facility] 02-16-2024 10:15-0400 Body weight 70.31 kg Kota Bonilla MD Work Phone: [facility] 02-16-2024 10:15-0400 Diastolic blood pressure 87 mm[Hg] Kota Bonilla MD Work Phone: [facility] 02-16-2024 10:15-0400 Heart rate 71 /min Kota Bonilla MD Work Phone: [facility] 02-16-2024 10:15-0400 Systolic blood pressure 137 mm[Hg] Kota Bonilla MD Work Phone: [facility] 02-08-2024 15:00-0400 Body height 157.48 cm [facility] 02-08-2024 15:00-0400 Body mass index (BMI) [Ratio] 28.1 kg/m2 [facility] 02-08-2024 15:00-0400 Body temperature 97 [degF] [facility] 02-08-2024 15:00-0400 Body weight 69.85 kg [facility] 02-08-2024 15:00-0400 Diastolic blood pressure 80 mm[Hg] [facility] 02-08-2024 15:00-0400 Heart rate 86 /min [facility] 02-08-2024 15:00-0400 Respiratory rate 20 /min [facility] 02-08-2024 15:00-0400 SaO2% (BldA) [Mass fraction] 99 % [facility] 02-08-2024 15:00-0400 Systolic blood pressure 118 mm[Hg] [facility] 10-29-2023 10:07-0400 Body height 157.48 cm WINNIE Dunbar Work Phone: [facility] 10-29-2023 10:07-0400 Body mass index (BMI) [Ratio] 28.1 kg/m2 MEDICAL ASSISTANT OB GYN Lyndsay Flanaganertricia Work Phone: [facility] 10-29-2023 10:07-0400 Body temperature 97.3 [degF] MEDICAL ASSISTANT OB GYN Lyndsay Panchitoertricia Work Phone: [facility] 10-29-2023 10:07-0400 Body weight 69.85 kg MEDICAL ASSISTANT OB GYN Lyndsay Flanaganertricia Work Phone: [facility] 10-29-2023 10:07-0400 Diastolic blood pressure 80 mm[Hg] MEDICAL ASSISTANT OB GYN Lyndsay Panchitoertricia Work Phone: [facility] 10-29-2023 10:07-0400 Heart rate 71 /min MEDICAL ASSISTANT OB GYN Lyndsay Flanaganertricia Work Phone: [facility] 10-29-2023 10:07-0400 SaO2% (BldA) [Mass fraction] 98 % MEDICAL ASSISTANT OB GYN Lyndsay Flanaganertricia Work Phone: [facility] 10-29-2023 10:07-0400 Systolic blood pressure 136 mm[Hg] MEDICAL ASSISTANT OB GYN Lyndsay Flanaganertricia Work Phone: [facility] 04-27-2023 09:30-0500 Body height 157.48 cm Lyndsay [employer] Other [employer] Other 04-27-2023 09:30-0500 Body mass index (BMI) [Ratio] 26.34 kg/m2 Lyndsay [employer] Other [employer] Other 04-27-2023 09:30-0500 Body temperature 97 [degF] Lyndsay [employer] Other [employer] Other 04-27-2023 09:30-0500 Body weight 65.32 kg Lyndsay [employer] Other [employer] Other 04-27-2023 09:30-0500 Diastolic blood pressure 76 mm[Hg] Lyndsay Easterwood Other [employer] Other 04-27-2023 09:30-0500 Respiratory rate 20 /min Lyndsay Easterwood Other [employer] Other 04-27-2023 09:30-0500 SaO2% (BldA) [Mass fraction] 99 % Lyndsay Easterwood Other [employer] Other 04-27-2023 09:30-0500 Systolic blood pressure 128 mm[Hg] Lyndsay Easterwood Other [employer] Other 04-15-2023 09:30-0500 Body height 157.48 cm Lyndsay Easterwood Other [employer] Other 04-15-2023 09:30-0500 Body mass index (BMI) [Ratio] 26.34 kg/m2 Lyndsay Easterwood Other [employer] Other 04-15-2023 09:30-0500 Body temperature 97.8 [degF] Lyndsay Easterwood Other [employer] Other 04-15-2023 09:30-0500 Body weight 65.32 kg Lyndsay Easterwood Other [employer] Other 04-15-2023 09:30-0500 Diastolic blood pressure 86 mm[Hg] Lyndsay Easterwood Other [employer] Other 04-15-2023 09:30-0500 Respiratory rate 20 /min Lyndsay Easterwood Other [employer] Other 04-15-2023 09:30-0500 SaO2% (BldA) [Mass fraction] 99 % Lyndsay Easterwood Other [employer] Other 04-15-2023 09:30-0500 Systolic blood pressure 128 mm[Hg] Lyndsay Easterwood Other [employer] Other 10-23-2022 10:00-0400 Body height 157.48 cm Lyndsay Easterwood Other [employer] Other 10-23-2022 10:00-0400 Body mass index (BMI) [Ratio] 27.43 kg/m2 Lyndsay [employer] Other [employer] Other 10-23-2022 10:00-0400 Body temperature 97 [degF] Lyndsay Easterwood Other [employer] Other 10-23-2022 10:00-0400 Body weight 68.04 kg Lyndsay [employer] Other [employer] Other 10-23-2022 10:00-0400 Diastolic blood pressure 82 mm[Hg] Lyndsay Easterwood Other [employer] Other 10-23-2022 10:00-0400 Respiratory rate 20 /min Lyndsay Easterwood Other [employer] Other 10-23-2022 10:00-0400 SaO2% (BldA) [Mass fraction] 96 % Lyndsay Easterwood Other [employer] Other 10-23-2022 10:00-0400 Systolic blood pressure 120 mm[Hg] Lyndsay Dunbar Other [facility] Other 08-05-2022 10:10-0400 Body height 157.5 cm Pacc 2 Work Phone: [facility] 08-05-2022 10:10-0400 Body temperature 97 [degF] Pacc 2 Work Phone: [facility] 08-05-2022 10:10-0400 Body weight 66.22 kg Pacc 2 Work Phone: [facility] 08-05-2022 10:10-0400 Diastolic blood pressure 90 mm[Hg] Pacc 2 Work Phone: [facility] 08-05-2022 10:10-0400 Heart rate 68 /min Pacc 2 Work Phone: [facility] 08-05-2022 10:10-0400 Respiratory rate 16 /min Pacc 2 Work Phone: [facility] 08-05-2022 10:10-0400 SaO2% (BldA) [Mass fraction] 100 % Pacc 2 Work Phone: [facility] 08-05-2022 10:10-0400 Systolic blood pressure 146 mm[Hg] Pacc 2 Work Phone: [facility] 06-30-2022 13:13-0500 Body weight 66 kg Zahida Medrano MD Work Phone: [facility] 06-30-2022 13:13-0500 Diastolic blood pressure 86 mm[Hg] Zahida Medrano MD Work Phone: [facility] 06-30-2022 13:13-0500 Heart rate 58 /min Zahida Medrano MD Work Phone: [facility] 06-30-2022 13:13-0500 Systolic blood pressure 152 mm[Hg] Zahida Medrano MD Work Phone: [facility] 06-17-2022 16:20-0500 Body height 157.48 cm Nadir Tolbert Other [employer] Other 06-17-2022 16:20-0500 Body mass index (BMI) [Ratio] 26.52 kg/m2 Nadir Tolbert Other [employer] Other 06-17-2022 16:20-0500 Body temperature 97.7 [degF] Nadir Tolbert Other [employer] Other 06-17-2022 16:20-0500 Body weight 65.77 kg Nadir Tolbert Other [employer] Other 06-17-2022 16:20-0500 Diastolic blood pressure 90 mm[Hg] Nadir Tolbert Other [employer] Other 06-17-2022 16:20-0500 Respiratory rate 20 /min Nadir Tolbert Other [employer] Other 06-17-2022 16:20-0500 SaO2% (BldA) [Mass fraction] 99 % Nadir Tolbert Other [employer] Other 06-17-2022 16:20-0500 Systolic blood pressure 160 mm[Hg] Nadir Tolbert Other [employer] Other 03-07-2022 13:17-0400 Body height 157.5 cm Frida Dewaynec MEDICAL ASSISTANT OB GYN.DINKER Work Phone: [facility] 03-07-2022 13:17-0400 Body weight 62.55 kg Frida Dewaynec MEDICAL ASSISTANT OB GYN.DINKER Work Phone: [facility] 03-07-2022 13:17-0400 Diastolic blood pressure 88 mm[Hg] Frida Lylyjac MEDICAL ASSISTANT OB GYN.DINKER Work Phone: [facility] 03-07-2022 13:17-0400 Heart rate 64 /min Frida Banjac MEDICAL ASSISTANT OB GYN.DINKER Work Phone: [facility] 03-07-2022 13:17-0400 Respiratory rate 16 /min Frida Banjac MEDICAL ASSISTANT OB GYN.DINKER Work Phone: [facility] 03-07-2022 13:17-0400 SaO2% (BldA) [Mass fraction] 100 % Frida Banjac MEDICAL ASSISTANT OB GYN.DINKER Work Phone: [facility] 03-07-2022 13:17-0400 Systolic blood pressure 140 mm[Hg] Frida Banjac MEDICAL ASSISTANT OB GYN.DINKER Work Phone: [facility] 12-25-2021 14:59-0400 Blood Pressure Location [facility] 12-25-2021 14:59-0400 Body temperature 98.96 [degF] [facility] 12-25-2021 14:59-0400 Diastolic blood pressure 80 mm[Hg] [facility] 12-25-2021 14:59-0400 Heart rate 66 /min [facility] 12-25-2021 14:59-0400 SaO2% (BldA) [Mass fraction] 98 % [facility] 12-25-2021 14:59-0400 Systolic blood pressure 120 mm[Hg] [facility] 12-03-2021 15:00-0400 Body height 157.48 cm Lyndsay [facility] Other [employer] Other 12-03-2021 15:00-0400 Body mass index (BMI) [Ratio] 26.52 kg/m2 Lyndsay Easterwood Other [employer] Other 12-03-2021 15:00-0400 Body temperature 97.2 [degF] Lyndsay Easterwood Other [employer] Other 12-03-2021 15:00-0400 Body weight 65.77 kg Lyndsay Easterwood Other [employer] Other 12-03-2021 15:00-0400 Diastolic blood pressure 62 mm[Hg] Lyndsay Easterwood Other [employer] Other 12-03-2021 15:00-0400 Respiratory rate 20 /min Lyndsay Easterwood Other [employer] Other 12-03-2021 15:00-0400 Systolic blood pressure 124 mm[Hg] Lyndsay Easterwood Other [employer] Other 09-30-2021 17:00-0400 Body height 157.48 cm Lyndsay Easterwood Other [employer] Other 09-30-2021 17:00-0400 Body mass index (BMI) [Ratio] 27.62 kg/m2 Lyndsay Easterwood Other [employer] Other 09-30-2021 17:00-0400 Body temperature 97.2 [degF] Lyndsay Easterwood Other [employer] Other 09-30-2021 17:00-0400 Body weight 68.49 kg Lyndsay Easterwood Other [employer] Other 09-30-2021 17:00-0400 Diastolic blood pressure 60 mm[Hg] Lyndsay Dunbar Other [employer] Other 09-30-2021 17:00-0400 Respiratory rate 20 /min Lyndsay Dunbar Other [employer] Other 09-30-2021 17:00-0400 SaO2% (BldA) [Mass fraction] 99 % Lyndsay Dunbar Other [employer] Other 09-30-2021 17:00-0400 Systolic blood pressure 125 mm[Hg] Lyndsay Dunbar Other [employer] Other Encounters Encounter Date Encounter Type Care Provider Facility Start: 10-06-2024 End: 10-06-2024 ambulatory [facility] Facility:[facility] Start: 09-26-2024 End: 09-26-2024 Bamboo flowsheet Alyson Vega DPM Work Phone: [facility] Start: 09-26-2024 End: 09-26-2024 Bamboo flowsheet Alyson Vega DPM Work Phone: [facility] Start: 09-26-2024 End: 09-26-2024 Office outpatient visit 15 minutes Alyson Vega DPM Work Phone: [facility] Comment on above: Onychomycosis (Prima ry Dx); Pain in both feet; Corns and callosities Start: 09-26-2024 End: 09-26-2024 Refill Alyson Vega DPM Work Phone: [facility] Comment on above: Onychomycosis Start: 06-27-2024 End: 06-27-2024 Bamboo flowsheet Alyson Jennifer Gary DPM Work Phone: [facility] Start: 06-27-2024 End: 06-27-2024 Bamboo flowsheet Alyson Jennifer Gary DPM Work Phone: [facility] Start: 06-27-2024 End: 06-27-2024 ambulatory ALYSON VEGA Not Available Start: 06-27-2024 End: 06-27-2024 Patient encounter procedure Alyson Jennifer Gary DPM Work Phone: [facility] Comment on above: Onychomycosis (Prima ry Dx); Pain in both feet; Corns and callosities Start: 2024 End: 2024 ambulatory [facility] Work Phone: Start: 2024 End: 2024 [facility] [place] Work Phone: Start: 03-28-2024 End: 03-28-2024 Subsequent hospital visit by physician James Arriaga 1 Work Phone: Radiology Comment on above: Aftercare following right hip joint replacement surgery [Z47.1, Z96.641] Start: 03-28-2024 End: 03-28-2024 ambulatory OLIVE AMAYA Facility:[facility] Start: 03-28-2024 End: 03-28-2024 Patient encounter procedure Olive Amaya PA-C Work Phone: Orthopaedics Comment on above: Trochanteric bursiti s of right hip (Primary Dx); Piriformis syndrome, right; Aftercare following right hip joint replacement surgery Start: 03-16-2024 End: 03-16-2024 Bamboo flowsheet Evelyn Kelbley P[facility] Start: 03-16-2024 End: 03-16-2024 Bamboo flowsheet Evelyn Kelbley [facility] Start: 03-16-2024 End: 03-16-2024 ambulatory Evelyn Kelbley [facility] Comment on above: Dizziness (Primary D x); Cervical paraspinal muscle spasm Start: 03-14-2024 End: 03-14-2024 Bamboo flowsheet Teresa Croft PT Work Phone: [facility] Start: 03-14-2024 End: 03-14-2024 Bamboo flowsheet Teresa Croft PT Work Phone: [facility] Start: 03-14-2024 End: 03-14-2024 ambulatory Teresa Croft PT Work Phone: [facility] Comment on above: Dizziness (Primary D x); Cervical paraspinal muscle spasm Start: 03-11-2024 End: 03-11-2024 Bamboo flowsheet Evelyn Kelbley [facility] Start: 03-11-2024 End: 03-11-2024 Bamboo flowsheet Evelyn Kelbley [facility] Start: 03-11-2024 End: 03-11-2024 ambulatory Evelyn Kelbley [facility] Comment on above: Dizziness (Primary D x); Cervical paraspinal muscle spasm Start: 03-07-2024 End: 03-07-2024 Bamboo flowsheet Hui Brink [facility] Start: 03-07-2024 End: 03-07-2024 Bamboo flowsheet Hui Brink [facility] Start: 03-07-2024 End: 03-07-2024 ambulatory Hui Brink [facility] Comment on above: Dizziness (Primary D x); Cervical paraspinal muscle spasm Start: 03-04-2024 End: 03-04-2024 Bamboo flowsheet Evelyn Kelbley [facility] Start: 03-04-2024 End: 03-04-2024 Bamboo flowsheet Evelyn Kelbley [facility] Start: 03-04-2024 End: 03-04-2024 ambulatory Evelyn Kelbley [facility] Comment on above: Dizziness (Primary D x); Cervical paraspinal muscle spasm Start: 02-26-2024 End: 02-26-2024 Bamboo flowsheet Evelyn Kelbley [facility] Start: 02-26-2024 End: 02-26-2024 Bamboo flowsheet Evelyn Link [facility] Start: 02-26-2024 End: 02-26-2024 ambulatory Evelyn Link [facility] Comment on above: Dizziness (Primary D x); Cervical paraspinal muscle spasm Start: 02-24-2024 End: 02-24-2024 Bamboo flowsheet Teresa Croft PT Work Phone: [facility] Start: 02-24-2024 End: 02-24-2024 Bamboo flowsheet Teresa Croft PT Work Phone: [facility] Start: 02-24-2024 End: 02-24-2024 ambulatory Teresa Croft PT Work Phone: [facility] Comment on above: Cervical paraspinal muscle spasm (Primary Dx); Dizziness Start: 02-18-2024 End: 02-24-2024 Telephone encounter Tamara Peres PT [facility] Comment on above: PT Initial Eval (Tri ed to contact to schedule PT Eval for dizziness / muscle spasms; lm requesting a call back.); fu (Contacted and scheduled PT Eval w/ Teresa Croft, PT on 02/24/24.) Start: 02-16-2024 End: 02-16-2024 Bamboo flowsalex Bonilla MD Work Phone: [facility] Start: 02-16-2024 End: 02-16-2024 Bamboo flowsheet Kota Bonilla MD Work Phone: [facility] Start: 02-16-2024 End: 02-16-2024 Office outpatient new 45 minutes Kota Bonilla MD Work Phone: [facility] Comment on above: Dizziness (Primary D x); Cervical paraspinal muscle spasm Start: 02-16-2024 End: 02-16-2024 ambulatory KOTA BONILLA Not Available Start: 02-08-2024 End: 02-08-2024 ambulatory [facility] Work Phone: Start: 02-08-2024 End: 02-08-2024 Patient encounter procedure [facility] Work Phone: Start: 01-11-2024 End: 01-11-2024 Refill Isaiah Arriaga MD Work Phone: Orthopaedics Start: 12-03-2023 End: 12-03-2023 ambulatory ALYSON Jennifer GARY Not Available Start: 10-29-2023 End: 10-29-2023 ambulatory MEDICAL ASSISTANT OB GYN Lyndsay Valadez [facility] Work Phone: [facility] Work Phone: Start: 10-29-2023 End: 10-29-2023 Patient encounter procedure WINNIE Dunbar Work Phone: [facility] Work Phone: Start: 10-09-2023 Non-patient / Non-visit WINNIE angeles Panchitotricia Work Phone: [facility] Work Phone: Start: 09-23-2023 End: 09-23-2023 Subsequent hospital visit by physician James Arriaga 1 Work Phone: Radiology Comment on above: Aftercare following right hip joint replacement surgery [Z47.1, Z96.641] Start: 09-23-2023 End: 09-23-2023 Patient encounter procedure Olive Amaya PA-C Work Phone: Orthopaedics Comment on above: Trochanteric bursiti s of right hip (Primary Dx); Aftercare following right hip joint replacement surgery Start: 09-07-2023 Refill Isaiah reagan MD Work Phone: Orthopaedics Start: 09-04-2023 End: 09-04-2023 ambulatory Lyndsay Rory Flanaganertricia Facility:[facility] Start: 09-04-2023 End: 09-04-2023 ambulatory MEDICAL ASSISTANT OB GYN Lyndsay Dunbar Work Phone: [facility] Work Phone: Start: 09-04-2023 End: 09-04-2023 Discharged Recurring MEDICAL ASSISTANT OB GYN Lyndsay Dunbar Work Phone: [facility] [place] Work Phone: Start: 08-11-2023 Refill Isaiah reagan MD Work Phone: Orthopaedics Start: 08-05-2023 Telephone encounter Isaiah Arriaga MD Work Phone: [address] [place] [address] Comment on above: Appointment Start: 07-31-2023 Non-patient / Non-visit MEDICAL ASSISTANT OB GYN Bronwyn Dunbar Work Phone: [facility] Physician [facility] Work Phone: Start: 05-04-2023 End: 05-04-2023 ambulatory Lyndsayasya Dunbar Other [employer] Other Start: 05-04-2023 Telephone encounter Lyndsay Dunbar [facility] Start: 04-29-2023 End: 04-29-2023 Patient encounter procedure Isaiah Arriaga MD Work Phone: Orthopaedics Comment on above: Aftercare following right hip joint replacement surgery (Primary Dx) Start: 04-27-2023 End: 04-27-2023 ambulatory Lyndsayasya Dunbar Other [employer] Other Start: 04-27-2023 Office outpatient vi sit 25 minutes Lyndsay Dunbar [facility] Start: 04-27-2023 Telephone encounter Lyndsay Dunbar [facility] Start: 04-21-2023 End: 04-21-2023 ambulatory Lyndsay Rory Dunbar Facility:[facility] Start: 04-15-2023 End: 04-15-2023 ambulatory Lyndsay Panchitomauricio Other [employer] Other Start: 04-15-2023 Office [facility] [place] Start: 04-13-2023 End: 04-13-2023 Patient encounter procedure Olive Amaya PA-C Work Phone: Orthopaedics Comment on above: Aftercare following right hip joint replacement surgery (Primary Dx); Postoperative lightheadedness Start: 04-13-2023 End: 04-13-2023 Subsequent hospital visit by physician James Arriaga 1 Work Phone: Radiology Comment on above: Aftercare following right hip joint replacement surgery [Z47.1, Z96.641] Start: 03-17-2023 End: [facility] Start: 03-16-2023 Orders Only Isaiah reagan MD Work Phone: Orthopaedics Comment on above: 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) Start: 02-23-2023 ambulatory Evette Miller RN Orthopaed ics Start: 12-22-2022 End: 12-22-2022 Patient encounter procedure Isaiah Arriaga MD Work Phone: Orthopaedics Comment on above: 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); MRSA (methicillin resistant Staphylococcus aureus); Pre-op testing; Frequent urination; Abnormal finding of blood chemistry, unspecified Start: 12-22-2022 End: 12-22-2022 Patient encounter status Isaiah Arriaga MD Work Phone: [facility] Work Phone: Start: 12-22-2022 End: 12-22-2022 Subsequent hospital visit by physician James Arriaga 1 Work Phone: Radiology Comment on above: hip pain Start: 10-31-2022 End: 10-31-2022 ambulatory [facility] Facility:[facility] Start: 10-31-2022 End: 10-31-2022 ambulatory MEDICAL ASSISTANT OB GYN [facility] Work Phone: [facility] Work Phone: Start: 10-31-2022 End: 10-31-2022 Patient encounter procedure WINNIE Dunbar Work Phone: [facility] Work Phone: Start: 10-23-2022 End: 10-23-2022 ambulatory Lyndsay Dunbar Other [employer] Other Start: 10-23-2022 Patient encounter procedure Lyndsay Dunbar [facility] Start: 10-15-2022 End: 10-15-2022 ambulatory Lyndsay Dunbar Other [employer] Other Start: 10-15-2022 Telephone encounter Lyndsay Dunbar [facility] Start: 09-25-2022 End: 09-25-2022 ambulatory Lyndsay Dunbar Other [employer] Other Start: 09-25-2022 [facility] r [facility] Start: 09-10-2022 End: 09-10-2022 Patient encounter procedure Wilmer Schmitt MEDICAL ASSISTANT OB GYN.DINKER Work Phone: Ophthalmology Comment on above: Post-operative state (Primary Dx) Start: 09-03-2022 End: 09-03-2022 ambulatory Lyndsay Dunbar Other [employer] Other Start: 09-03-2022 [facility] Start: 08-18-2022 Telephone encounter Kalina Hanks RNcake stripper Comment on above: Preparations For Libra gerber Start: 08-05-2022 End: 08-05-2022 Admission to establishment Pacc Blaine 2 Work Phone: [facility] Start: 08-05-2022 End: 08-05-2022 ambulatory Pacc Blaine 2 Work Phone: Pre Anesthesia Comment on above: Pre-op evaluation (P rimary Dx); Stage 3 chronic kidney disease, unspecified whether stage 3a or 3b CKD (HCC) Start: 08-05-2022 End: 08-05-2022 Preprocedural examination done [facility] Vishal 2 Work Phone: Pre Anesthesia Start: 07-15-2022 Refill Isaiah reagan MD Work Phone: Orthopaedics Comment on above: Refill Request (Thao brex) Start: 07-10-2022 Telephone encounter Alex Frederick MD Work Phone: Ophthalmology Comment on above: Refill Request Start: 06-30-2022 End: 06-30-2022 Patient encounter procedure Zahida Medrano MD Work Phone: Geriatrics Comment on above: Memory change (Prima ry Dx); Fuchs' corneal dystrophy of both eyes; Stage 3 chronic kidney disease, unspecified whether stage 3a or 3b CKD (HCC); Elevated blood-pressure reading without diagnosis of hypertension Start: 06-17-2022 (UC Visit) Urgent Ca re Visit Nadir Tolbert [facility] Start: 06-17-2022 End: 06-17-2022 ambulatory Alex Frederick MD Work Phone: Ophthalmology Comment on above: blood in eye Start: 05-29-2022 End: 05-29-2022 Patient encounter procedure Deshaun Busch MD Work Phone: Ophthalmology Comment on above: 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 Rand Start: 05-20-2022 End: 05-20-2022 Patient encounter procedure Alex Frederick MD Work Phone: Ophthalmology Comment on above: Pseudophakia (Primar y Dx); Status post corneal transplant; PCO (posterior capsular opacification), right; Ptosis of both eyelids Start: 04-28-2022 Refill Gregor mohr DO Work Phone: Orthopaedics Comment on above: Refill Request Start: 04-17-2022 End: 04-18-2022 ambulatory [facility]NDSAY [facility] Facility:[facility] Start: 04-15-2022 End: 04-15-2022 ambulatory [facility] Other [employer] Other Start: 04-15-2022 Telephone encounter [facility] Start: 04-15-2022 End: 04-15-2022 Patient encounter procedure Alex Frederick MD Work Phone: Ophthalmology Comment on above: Status post corneal transplant (Primary Dx); Pseudophakia Start: 04-14-2022 ambulatory Alex boykin MD Work Phone: Ophthalmology Comment on above: Research (FECD STUDY ) Start: 03-25-2022 Preprocedural examin ation done Alex Frederick MD Work Phone: [facility] Work Phone: Start: 03-18-2022 End: 03-18-2022 Patient encounter procedure Alex Frederick MD Work Phone: Ophthalmology Comment on above: Fuchs' corneal dystr ophy of both eyes (Primary Dx); Status post corneal transplant Start: 03-17-2022 ambulatory Alex boykin MD Work Phone: Ophthalmology Comment on above: Research (FECD STUDY ) Start: 03-07-2022 End: 03-07-2022 Patient encounter procedure Frida Rick APRN.DINKER Work Phone: Internal Medicine Comment on above: Pre-operative examin ation Nuclear sclerotic ca taract of both eyes (Primary Dx) Fuchs' corneal dystr ophy of both eyes (Primary Dx) Start: 03-07-2022 End: 03-07-2022 Preprocedural examination done Frida Rick APRN.DINKER Work Phone: Internal Medicine Start: 01-06-2022 End: 01-06-2022 Patient encounter procedure Isaiah Arriaga MD Work Phone: Orthopaedics Comment on above: 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) Start: 01-06-2022 End: 01-06-2022 Subsequent hospital visit by physician James Arriaga 1 Work Phone: Radiology Comment on above: Primary osteoarthrit is of right hip [M16.11] Start: 12-25-2021 End: 12-25-2021 Patient encounter procedure Carl Rory Agudelo [facility] Start: 12-05-2021 End: 12-05-2021 ambulatory Lyndsay [place]wood Other [employer] Other Start: 12-05-2021 Telephone encounter Lyndsay Easterwood [facility] Start: 12-04-2021 End: 12-05-2021 ambulatory [facility]SAY [facility] Facility:[facility] Start: 12-03-2021 End: 12-03-2021 ambulatory Lyndsay Easterwood Other [employer] Other Start: 12-03-2021 Office outpatient vi sit 15 minutes Lyndsay Easterwood [facility] Start: 11-26-2021 End: 11-26-2021 ambulatory Lyndsay Easterwood Other [employer] Other Start: 11-26-2021 Telephone encounter Lyndsay Easterwood [facility] Start: 11-19-2021 End: 11-19-2021 ambulatory Agustin Sevilla Other [employer] Other Start: 11-19-2021 Telephone encounter Agustin MOSQUERA [employer] Start: 11-05-2021 ambulatory Evette Nascimento RT(R) Natalia garcia Comment on above: Radiology XR Start: 11-05-2021 End: 11-05-2021 Patient encounter procedure Evette D Nascimento RT(R) ARSLAN PERKINS Comment on above: Rotator cuff arthrop athy, right (Primary Dx) Start: 11-05-2021 End: 11-05-2021 Subsequent hospital visit by physician James Arriaga 1 Work Phone: Radiology Comment on above: Pain [R52] Start: 11-04-2021 Telephone encounter Gregor Barahona DO Work Phone: Orthopaedics Comment on above: Medication Question Start: 10-31-2021 End: 10-31-2021 Patient encounter procedure Alex Frederick MD Work Phone: Ophthalmology Comment on above: Fuchs' corneal dystr ophy of both eyes (Primary Dx); Nuclear senile cataract of both eyes Start: 10-31-2021 End: 10-31-2021 ambulatory Lyndsay [employer] Other [employer] Other Start: 10-31-2021 [email or web address] Start: 10-28-2021 End: 10-28-2021 ambulatory Lyndsay [employer] Other [employer] Other Start: 10-28-2021 [facility] Start: 10-25-2021 End: 10-25-2021 Subsequent hospital visit by physician James Arriaga 1 Work Phone: Radiology Comment on above: Pain [R52] Start: 10-25-2021 ambulatory Bethany Sweet n RT(R) Radiology Comment on above: Radiology XR Start: 10-25-2021 End: 10-25-2021 Patient encounter procedure Bethany Gipson RT(R) ARSLAN PERKINS Comment on above: 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); Right sciatic nerve pain Start: 10-22-2021 End: 10-22-2021 ambulatory Lyndsay [employer] Other [employer] Other Start: 10-22-2021 Telephone encounter Lyndsay Panchitoerwood [employer] Start: 10-17-2021 End: 10-17-2021 ambulatory Agustin Sevilla Other [employer] Other Start: 10-17-2021 Telephone encounter Agustin Janamangoangelina [employer] Start: 10-07-2021 End: 10-07-2021 ambulatory Lyndsay Easterwood Other [employer] Other Start: 10-07-2021 Telephone encounter Lyndsay Panchitoerwood [facility] Start: 10-04-2021 End: 10-05-2021 ambulatory [facility]NDSAY [facility] Facility:[facility] Start: 10-02-2021 End: 10-02-2021 ambulatory Lyndsay Easterwood Other [employer] Other Start: 10-02-2021 Telephone encounter Lyndsay Panchitoerwood [facility] Start: 09-30-2021 End: 09-30-2021 ambulatory Lyndsay Easterwood Other [employer] Other Start: 09-30-2021 Office outpatient ne w 60 minutes Lyndsay Panchitoerwood [facility] Start: 08-06-2021 Telephone encounter Alex Frederick MD Work Phone: Ophthalmology Comment on above: Received Outside [facility] Records Procedures Date Procedure Procedure Detail Performing Clinician Start: 03-28-2024 Radiologic examinati on pelvis 1/2 views Olive Scotch PA-C Work Phone: Start: 09-23-2023 Radiologic examinati on pelvis 1/2 views Olive Scotch PA-C Work Phone: Start: 04-13-2023 Radiologic examinati on pelvis 1/2 views Olive Scotch PA-C Work Phone: Start: 12-22-2022 Iadna s aureus ampli fied probe tq Isaiah Arriaga MD Work Phone: Start: 12-22-2022 Radex hip unilateral with pelvis 2-3 views Isaiah Arriaga MD Work Phone: Start: 10-31-2022 Screening mammograph y of bilateral breasts WINNIE Dunbar Work Phone: Start: 05-29-2022 Visual field xm uni/ bi w/interp intermed exam Deshaun Busch MD Work Phone: Start: 04-15-2022 Cmptr ophthalmic dx img ant segmt w/i&r uni/bi Aelx Frederick MD Work Phone: Start: 03-18-2022 Cmptr ophthalmic dx img ant segmt w/i&r uni/bi Alex Frederick MD Work Phone: Start: 03-07-2022 PREOP RIGHT EYE OUTC OMES PROTOCOL E-ETDRS VISUAL ACUITY Alex Frederick MD Work Phone: Start: 03-07-2022 PREOP LEFT EYE OUTCO MES PROTOCOL E-ETDRS VISUAL ACUITY Alex Frederick MD Work Phone: Start: 03-07-2022 IOL BIOMETRY W/ IOL CALC OU (BOTH EYES) Alex Frederick MD Work Phone: Start: 01-06-2022 Radex hip unilateral with pelvis 2-3 views Isaiah Arriaga MD Work Phone: Start: 11-05-2021 Radex shoulder compl ete minimum 2 views Gregor Barahona DO Work Phone: Start: 10-31-2021 Ophthalmic us dx cor jory pachymetry uni/bi Alex Frederick MD Work Phone: Start: 10-31-2021 Computerized corneal topography uni/bi Alex Frederick MD Work Phone: Start: 10-25-2021 Radex hip unilateral with pelvis 2-3 views Gregor Barahona DO Work Phone: Start: 06-21-2018 Mammography Kota Barnhart Work Phone: section Carl Cristin lawsony H/O: cornea recipient Status pos t corneal transplant Alex Frederick MD Work Phone: H/O: cornea recipient Status pos t corneal transplant Alex Frederick MD Work Phone: H/O: cornea recipient Status pos t corneal transplant Alex Frederick MD Work Phone: Ligation of fallopia n tube Carl Agudelo Neck pain (finding) Carl ellison Comment on above: surgery Plan of Treatment Date Care Activity Detail Author Start: 04-07-2029 Urine microalbumin profile [facility] Start: 03-19-2026 [facility] Start: 01-07-2026 Diabetes Screening Diabetes Screenin [facility] Start: 12-26-2024 End: 12-26-2024 Patient encounter procedure 12/26/2024 11:30 AM EDT Procedure Visit [facility] [address] [place] [id number] Alyson Vega DPM [address] [place] [address] [facility] Start: 09-26-2024 End: 09-26-2024 Patient encounter procedure [facility] Comment on above: Arrived Start: 04-25-2024 End: 04-25-2024 Patient encounter procedure 04/25/2024 8:45 AM EST Office Visit Orthopaedics [address] [place] [address] Olive Amaya PA-C [address] [place], [place] [id number] 4 weel F/U Right Hip Orthopaedics Comment on above: 4 weel F/U Right Hip Start: 04-06-2024 End: 04-06-2024 Patient encounter procedure 04/06/2024 11:30 AM EST Procedure Visit [facility] [address] [place] [phone] Alyson Vega, DPM [address] [place] [address] [facility] Start: 03-28-2024 End: 03-28-2024 Patient encounter procedure 03/28/2024 8:00 AM EST Office Visit Orthopaedics [address] [place] [address] Olive Amaya PA-C [address] [place] [address] 6 Month F/U Right Hip Orthopaedics Comment on above: 6 Month F/U Right Hi p Start: 03-19-2024 Creatinine measurement Serum Creatin ine [facility] Start: 03-19-2024 Serum Creatinine Serum Creatinine [facility] Start: 03-16-2024 End: 03-16-2024 ambulatory [facility] Comment on above: Arrived Start: 03-14-2024 End: 03-14-2024 ambulatory 03/14/2024 1:00 PM EDT Treatment [facility] [address] [place] [address] Teresa Croft, PT [address] [place] [address] [facility] Start: 03-11-2024 End: 03-11-2024 ambulatory [facility] Comment on above: Arrived Start: 03-09-2024 End: 03-09-2024 ambulatory 03/09/2024 12:30 PM EDT Treatment [facility] [address] [facility] [address] [place] [address] Evelyn Link PTA [facility] Start: 03-07-2024 End: 03-07-2024 ambulatory [facility] Comment on above: Arrived Start: 03-04-2024 End: 03-04-2024 ambulatory [facility] Comment on above: Arrived Start: 02-29-2024 End: 02-29-2024 Patient encounter procedure 02/29/2024 1:15 PM EDT Procedure Visit [facility] [address] [place] [address] Alyson Vega DPM [address] [place] [address] [facility] Start: 02-26-2024 End: 02-26-2024 ambulatory [facility] Comment on above: Arrived Start: 02-24-2024 End: 02-24-2024 ambulatory [facility] Comment on above: Dizziness; Cervical paraspinal muscle spasm Start: 02-16-2024 End: 02-16-2024 Patient encounter procedure 02/16/2024 10:15 AM EDT Office Visit [facility] [address] [place] [phone] Kota Bonilla MD [address] [facility] [address] [id number] Arrived [facility] Comment on above: Arrived Start: 01-17-2024 Covid-19 Vaccine ( season) Covid-19 Vaccine ( season) [facility] Start: 01-17-2024 Covid-19 Vaccine ( season) Covid-19 Vaccine ( season) [facility] Start: 01-17-2024 Influenza vaccination Influenza Vacc ine (#1) [facility] Start: 01-08-2024 Serum Creatinine Serum Creatinine Cl [facility] Start: 10-29-2023 Patient referral [facility] Work Phone: Start: 09-23-2023 End: 09-23-2023 Patient encounter procedure 09/23/2023 8:00 AM EDT Office Visit Orthopaedics [address] [place] [address] Olive Amaya PA-C [address] [place], [place] [id number] POST OP RIGHT THR 03/17/23 Orthopaedics Comment on above: POST OP RIGHT THR Start: 06-30-2023 ANNUAL PCP TEAM CHEF CONCIERGE NOEMI DISEASE VISIT ANNUAL PCP TEAM CHRONIC DISEASE VISIT [facility] Start: 06-21-2023 Covid-19 Vaccine ( season) Covid-19 Vaccine () [facility] Start: 05-18-2023 Advance Directive Discussion Advance Directive Discussion [facility] Start: 05-18-2023 Behavioral Health Screening Behavioral Health Screening [facility] Start: 05-18-2023 Depression Assessment Depression Ass essment [facility] Start: 02-15-2023 End: 04-17-2023 Bacteria identified in Urine by Culture URINE CULTURE Microbiology Routine Frequent urination Expected: 02/15/2023 (Approximate), Expires: 04/17/2023 [facility] Work Phone: Comment on above: Expected: 02/15/2023 (Approximate), Expires: 04/17/2023 Start: 02-15-2023 End: 04-17-2023 TYPE AND SCREEN,30 DAY TYPE AND SCREEN,30 DAY Blood Bank Routine Pre-op testing Expected: 02/15/2023 (Approximate), Expires: 04/17/2023 [facility] Work Phone: Comment on above: Expected: 02/15/2023 (Approximate), Expires: 04/17/2023 Start: 01-16-2023 Covid-19 Vaccine () Covid-19 Vaccine () [facility] Start: 01-16-2023 Influenza vaccination [facility] Start: 12-23-2022 End: 02-22-2023 Basic metabolic 2000 panel - Serum or Plasma BASIC METABOLIC PNL Lab Routine Pre-op testing Expected: 12/23/2022, Expires: 02/22/2023 [facility] Work Phone: Comment on above: Expected: 12/23/2022 , Expires: 02/22/2023 Start: 12-23-2022 End: 02-22-2023 CBC W Auto Differential panel - Blood CBC + DIFF Lab Routine Pre-op testing Expected: 12/23/2022, Expires: 02/22/2023 [facility] Work Phone: Comment on above: Expected: 12/23/2022 , Expires: 02/22/2023 Start: 12-23-2022 End: 02-22-2023 Hemoglobin A1c in Blood HGB A1C Lab Routine Pre-op testing Abnormal finding of blood chemistry, unspecified Expected: 12/23/2022, Expires: 02/22/2023 [facility] Work Phone: Comment on above: Expected: 12/23/2022 , Expires: 02/22/2023 Start: 12-23-2022 End: 02-22-2023 Urinalysis complete panel - Urine URINALYSIS, WITH MICROSCOPIC Lab Routine Frequent urination Expected: 12/23/2022, Expires: 02/22/2023 [facility] Work Phone: Comment on above: Expected: 12/23/2022 , Expires: 02/22/2023 Start: 07-23-2022 COVID-19 VACCINE (6 - Moderna series) COVID-19 VACCINE (6 - Moderna series) [facility] Start: 05-18-2022 ADVANCE DIRECTIVE DISCUSSION ADVANCE DIRECTIVE DISCUSSION [facility] Start: 05-18-2022 DEPRESSION ASSESSMENT DEPRESSION ASS ESSMENT [facility] Start: 01-16-2022 Influenza vaccination [facility] Start: 11-29-2021 COVID-19 VACCINE (5 - Booster for Moderna series) COVID-19 VACCINE (5 - Booster for Moderna series) [facility] Start: 05-18-2021 ADVANCE DIRECTIVE DISCUSSION ADVANCE DIRECTIVE DISCUSSION [facility] Start: 05-18-2021 DEPRESSION ASSESSMENT DEPRESSION ASS ESSMENT [facility] Start: 06-21-2019 Screening for malign ant neoplasm of breast [facility] Start: 2016 BONE DENSITY BONE DENSITY [facility] Start: 2016 Bone Density Screening Bone Density Screening [facility] Start: 2016 PNEUMOCOCCAL: 65+ (1 - PCV) PNEUMOCOCCAL: 65+ (1 - PCV) [facility] Start: 2016 PNEUMOVAX AGE 65 AND OVER WITH 5YR LOOKBACK (#1) PNEUMOVAX AGE 65 AND OVER WITH 5YR LOOKBACK (#1) [facility] Start: 2016 Screening for osteoporosis Bone Density Screening [facility] Start: 2011 RSV Vaccine (1 - 1-d ose 60+ series) RSV Vaccine (1 - 1-dose 60+ series) [facility] Start: 2001 SHINGRIX VACCINE (1 of 2) SHINGRIX VACCINE (1 of 2) [facility] Start: 1996 COLOGUARD (FIT-DNA) COLOGUARD (FIT-D NA) [facility] Start: 1996 Colonoscopy COLONOSCOPY [facility] Start: 1996 COLORECTAL CANCER SCREENING COLORECTAL CANCER SCREENING [facility] Start: [address] COLONOGRAPHY [facility] Start: 1996 DIABETES SCREEN DIABETES SCREEN [facility] Start: 1996 FECAL OCCULT BLOOD FECAL OCCULT BLOO D [facility] Start: 1996 Lipid 1996 panel - Serum or Plasma Lipid Screening [facility] Start: 1996 Lipid panel Lipid Screening [facility] Start: 1996 LIPID SCREEN LIPID SCREEN [facility] Start: 1996 Screening for malign ant neoplasm of colon [facility] Start: 1996 SIGMOIDOSCOPY SIGMOIDOSCOPY [facility] Start: 1991 Mammography [facility] Start: 1991 Screening for malign ant neoplasm of breast Mammogram Screening [facility] Start: 1970 Urine microalbumin profile DTAP,TDAP,TD (1 - Tdap) [facility] Start: 1969 ANNUAL PCP TEAM CHEF CONCIERGE NOEMI DISEASE VISIT ANNUAL PCP TEAM CHRONIC DISEASE VISIT [facility] Start: 1969 Anxiety Screening Anxiety Screening [facility] Start: 1969 Depression Screening Depression Scre ening [facility] Start: 1969 HEMOGLOBIN/HEMATOCRIT HEMOGLOBIN/HEM ATOCRIT [facility] Start: 1969 HEPATITIS C SCREENING HEPATITIS C [facility] Start: 1969 Hepatitis C screening Hepatitis C [facility] Start: 1969 SERUM CREATININE SERUM CREATININE [facility] Start: 1963 Adult depression screening assessment DEPRESSION SCREENING [facility] Start: 1956 COVID-19 VACCINE (1) COVID-19 VACCIN E (1) [facility] Start: 1951 Medicare Annual Wellness (AWV) Medicare Annual Wellness (AWV) [facility] Start: 1950 Screening for malign ant neoplasm of colon [facility] Patient referral [facility] Work Phone: [facility] EYE INS TITUTE [facility] EYE INS TITUTE [facility] AV OR [facility] Immunizations Immunization Date Immunization Notes Care Provider Fa alex 04-29-2023 RSV, preF3, adj, pf [facility] 02-18-2023 COVID-19 Moderna (SPIKEVAX) Lyndsay Dunbar Other [facility] 02-18-2023 Influenza vaccine, quadrivalent, adjuvanted [facility] 02-18-2023 influenza, injectabl e, quadrivalent, preservative free MEDICAL ASSISTANT OB GYN Lyndsay Raphaelbaileyton Work Phone: [facility] 02-18-2023 influenza, injectabl e, quadrivalent, contains preservative Lyndsay Dunbar Other [employer] Other 02-18-2023 influenza virus vaccine, unspecified formulation Isaiah Arriaga MD Work Phone: [facility] 03-25-2022 influenza, injectabl e, quadrivalent, contains preservative Nadir Tolbert Other [facility] 03-25-2022 COVID-19 Pfizer (bivalent) Nadir Tolbert Other [facility] 03-25-2022 influenza (aIIV4) vaccine, age 65+ yr, quadrivalent, PF (FLUAD QUADRIVALENT) Zahida Medrano MD Work Phone: [facility] 03-25-2022 influenza, injectabl e, quadrivalent, preservative free MEDICAL ASSISTANT OB GYN Lyndsay Easterwood Work Phone: [facility] 03-25-2022 influenza virus vaccine, unspecified formulation Evette Miller RN [facility] 10-04-2021 COVID-19 Moderna Lyndsay [place] Other [employer] Other Comment on above: Result Comment: 2021: [id number] 03-30-2021 COVID-19 Moderna Lyndsay Easter wood Other [employer] Other Comment on above: Result Comment: 2021: [id number] 03-01-2021 influenza, injectabl e, quadrivalent, contains preservative Lyndsay Easterwood Other [employer] Other 03-01-2021 influenza (aIIV4) vaccine, age 65+ yr, quadrivalent, PF (FLUAD QUADRIVALENT) Frida Rick MEDICAL ASSISTANT OB GYN.DINKER Work Phone: [facility] Work Phone: 03-01-2021 influenza virus vaccine, unspecified formulation Carl Agudelo [facility] 03-01-2021 influenza, injectabl e, quadrivalent, preservative free MEDICAL ASSISTANT OB GYN Lyndsay Easterwood Work Phone: [facility] 08-08-2020 COVID-19 Moderna Lyndsay Easter wood Other [employer] Other 07-12-2020 COVID-19 Moderna Lyndsay Easter wood Other [employer] Other 04-07-2019 pneumococcal polysaccharide vaccine, 23 valent Lyndsay Easterwood Other [employer] Other 04-07-2019 influenza virus vaccine, unspecified formulation [facility] 04-07-2019 Seasonal trivalent influenza vaccine, adjuvanted, preservative free Frida Banjac MEDICAL ASSISTANT OB GYN.DINKER Work Phone: [facility] Work Phone: 04-07-2019 tetanus and diphther ia toxoids, adsorbed, preservative free, for adult use (5 Lf of tetanus toxoid and 2 Lf of diphtheria toxoid) MEDICAL ASSISTANT OB GYN Lyndsay Easterwood Work Phone: [facility] 04-07-2019 tetanus toxoid, redu mariaa diphtheria toxoid, and acellular pertussis vaccine, adsorbed Lyndsay [facility] Other [employer] Other 07-20-2018 zoster vaccine recombinant Lyndsay Easterwood Other [employer] Other 03-23-2018 zoster vaccine recombinant [facility] 2017 pneumococcal conjuga te vaccine, 13 valent [facility] Other [employer] Other 03-26-2017 influenza virus vaccine, unspecified formulation [facility] 03-26-2017 influenza, high dose seasonal, preservative-free Frida Banjac MEDICAL ASSISTANT OB GYN.DINKER Work Phone: [facility] Work Phone: 01-02-2015 hepatitis A vaccine, adult dosage [facility] 06-14-2014 hepatitis A vaccine, adult dosage [facility] 06-14-2014 typhoid vaccine, parenteral, other than acetone-killed, dried Frida Rick MEDICAL ASSISTANT OB GYN.DINKER Work Phone: [facility] Work Phone: 05-08-2009 novel [id number], preservative-free, injectable Frida Rick MEDICAL ASSISTANT OB GYN.DINKER Work Phone: [facility] Work Phone: Payers Date Payer Category Payer Unknown [id number] 2022 Private Health Insurance [id number] 2021 Unknown [id number] 2016 Medicare MEDICARE MEDICAR E A AND B [id number] 2016-Present [phone] [address] [address] [place] [address] Medicare [id number] 2016 Medicare [id number]. [id number] 1959 Medicare [id number] 1959 Unknown [id number] 1951 Unknown [id number] [id number] 3 1951 Unknown [id number] 2.16.840.1.071686.3.579.2.59 3 1951 Unknown [id number] 2.16.840.1.540033.3.579.2.59 3 1951 Unknown [id number] 2.16.840.1.250861.3.579.2.12 59 1951 Unknown [id number] 2.16.840.1.854407.3.579.2.12 59 1951 Unknown [id number] 2.16.840.1.873866.3.579.2.12 59 1951 Unknown [id number] 2.16.840.1.224755.3.579.2.12 59 1951 Unknown [id number] 2.16.840.1.012830.3.579.2.12 59 1951 Unknown [id number] 2.16.840.1.166625.3.579.2.12 59 1951 Unknown [id number] 2.16.840.1.853840.3.579.2.12 59 1951 Unknown [id number] 2.16.840.1.564277.3.579.2.12 59 1951 Unknown [id number] 2.16.840.1.377661.3.579.2.12 59 1951 Unknown [id number] 2.16.840.1.556103.3.579.2.12 59 1951 Unknown [id number] [id number] 59 Private Health Insurance [facility] Insurance GetGoing [id number] Self-pay Self Pay [id number] Unknown MMO [employer] [id number] Unknown Regular Auto/Medical [id number] Unknown Regular Auto/Liability [id number] Social History Date Type Detail Facility Tobacco smoking stat [facility] Tobacco smoking consumption unknown [facility] Start: 1950 Sex Assigned At Not on file [facility] Start: 1950 Sex Assigned At Female [facility] Start: 10-15-2021 End: 04-14-2022 Exposure to SARS-CoV-2 (event) Not sure [facility] Start: 06-29-2022 End: 09-26-2024 Sex Assigned At [employer] Other Start: 12-25-2021 End: 01-06-2023 Tobacco smoking status [facility] Start: 03-04-2022 End: 03-14-2022 Exposure to SARS-CoV-2 (event) Unable to assess [facility] Start: 05-18-1972 End: 05-18-1973 History of tobacco use Current smoker [facility] Start: 05-18-1972 End: 05-18-1973 History of tobacco use Cigarette Smoker [facility] Start: 06-30-2022 End: 09-26-2024 Cigarettes smoked current (pack per day) - Reported 0.2 [facility] Start: 06-30-2022 Tobacco use and exposure Smokeless tobacco non-user [facility] Start: 06-30-2022 End: 06-02-2023 Alcohol intake Current drinker of alcohol (finding) [facility] Start: 06-29-2022 History SDOH Alcohol Frequency 3 [facility] Start: 06-29-2022 History SDOH Alcohol Std Drinks 1 [facility] Start: 06-29-2022 History SDOH Social Connections Phone 2 [facility] Start: 06-29-2022 History SDOH Social Connections Get Together 5 [facility] Start: 06-29-2022 History SDOH Physical Activity DPW 6 [facility] Start: 06-30-2022 Alcohol Comment occasionally [facility] Do you belong to any clubs or organizations such as religious groups, unions, fraternal or athletic groups, or school groups? Yes [facility] Are you now , , , , never or living with a partner? [facility] How often to you hav e a drink containing alcohol? 2-4 times a month [facility] How many standard dr inks containing alcohol do you have on a typical day? 1 or 2 [facility] How often do you hav e 6 or more drinks on 1 occasion? Never [facility] Adult Depression Screening Assessment 0 [facility] Do you feel stress - tense, restless, nervous, or anxious, or unable to sleep at night because your mind is troubled all the time - these days [OSQ] Not at all [facility] (I/We) worried wheth er (my/our) food would run out before (I/we) got money to buy more. Never true [facility] In the past 12 month s, was there a time when you were not able to pay the mortgage or rent on time? No [facility] Start: 10-20-2021 Gender identity Identifies as female gender (finding) [facility] Start: 10-20-2021 Sexual orientation Heterosexual (finding) [facility] Start: 12-03-2023 End: 09-26-2024 Alcoholic beverage intake Lifetime non-drinker (finding) [facility] Start: 03-11-2023 Alcohol Comment caffeine intake: 1-2 cups per day [facility] Start: 2024 Sex Female (finding) [facility] Medical Equipment Procedure Code Equipment Code Equipment Origin al Text Equipment Identifier Dates Cornea Tissue Pre-Loaded Dmek - [id number] Start: 03-17-2022 Gas Ispan Constellation Intraocular Vision System 6 125gm - [id number] Start: 03-17-2022 Lens Iol 0d +21 Eloisa Uv Abs - [id number] Start: 03-17-2022 Cornea Tissue Pre-Loaded Dmek - [id number] Start: 04-14-2022 Gas Ispan Constellation Intraocular Vision System Sf6 125gm - [id number] Start: 04-14-2022 Lens Iol 0d +21. 5 Eloisa Uv Abs - [id number] Start: 04-14-2022 Head V40 Lfit 22 mm +3mm Offset Taper Cocr Femoral Primary Hip - [id number] Start: 03-17-2023 Stem Accolade Ii V40 132d 2 33mm Offset Purefix Titanium Plasma Olema 99mm - [id number] Start: 03-17-2023 Shell Trident Ii 46mm C Tritanium Acetabular 3 Screw Hole Cluster Sterile - [id number] Start: 03-17-2023 Liner Mdm 36mm C Cocr Acetabular 2 Mobility Modular Hip - [id number] Start: 03-17-2023 Estefany Adm X3 Ins Estefany Adm X3 Ins 42 - [id number] Start: 03-17-2023 Functional Status Date Assessment Result Facility 12-25-2021 Functional Status N/A [facility] Clinical Notes 08-06-2021 to 10-06-2024 Telephone Encounter - Tomeka Carranza MA - 09/26/2024 1:10 PM EDTTelephone Encounter - Tomeka Carranza MA - 09/26/2024 1:10 PM EDTCdanielito Vega DPM - 09/26/2024 11:30 AM EDT Note Date & Type Note Facility 10-06-2024 Note HNO ID: [id number] Author: OLIVE AMAYA PA-C Service: ? Author Type: Physician Music Director Type: Progress Notes Filed: 10/06/2024 10:18 Note Text: Recording using [employer] software for draft documentation of the visit was discussed with the patient/authorized branch service representative; all questions welcomed and answered. Patient/authorized branch service representative agreed to proceed Chief complaint: Gracie is a 74-year-old female presenting for evaluation of right hip pain. HISTORY: Gracie is a 74 year old female. Right Hip Pain: - Pain localized to the right lateral hip, present for a couple of months. - Initially resolved with exercises but has recurred despite continued adherence. - Describes pain as constant, with occasional sharp pains at night. - Aggravated by lying on either side; prefers lying on her back. - Pain sometimes radiates to the knee at night; denies numbness or tingling. - No pain in the left hip or lower back; has chronic middle back pain. - No pain with ambulation or rising from a chair; reports good hip function. - Uses Voltaren gel with some relief. - Avoids sitting for prolonged periods due to discomfort. - Engages in regular exercise, including gym workouts three times a week. - Experiences discomfort with certain exercises, particularly hip extensions. - Wears supportive footwear during activities. Patient has a past medical history, medications and allergies were reviewed. No other musculoskeletal complaints ROS : Musculoskeletal: (+) right hip pain, (+) nighttime hip pain, (+) sharp pain radiating to knee, (+) pain with side lying, (+) middle back pain, (-) pain with walking, (-) left hip pain Neurological: (-) numbness, (-) tingling PAST MEDICAL HISTORY Diagnosis Date Stage 3 chronic kidney disease (HCC) 12/09/2021 PAST SURGICAL HISTORY Procedure Laterality Date SECTION HX x2 COLONOSCOPY SCREENING KERATOPLASTY ENDOTHELIAL Right 04/14/2022 KERATOPLASTY ENDOTHELIAL Left 03/17/2022 PAST SURGICAL HISTORY OF BLEPHAROPLASTY UPPER TOTAL HIP REPLACEMENT Right XR CERVICAL FUSION OR Medications reviewed. ALLERGIES No Known Allergies Social History Tobacco Use Smoking status: Former Current packs/day: 0.00 Average packs/day: 0.2 packs/day for 1 year (0.2 ttl pk-yrs) Types: Cigarettes Start date: 1972 Quit date: 1973 Years since quittin.4 Smokeless tobacco: Never Substance Use Topics Alcohol use: Yes Comment: occasionally Drug use: Not Currently Comment: denies tx for drug/alcohol abuse in the past. EXAMINATION: On physical exam today, - Musculoskeletal: - Left Hip: - No pain with passive ROM. - ROM: Full. - Right Hip: - Tenderness over greater trochanter. - ROM: Flexion to 120 degrees with mild discomfort in gluteal region; adduction to 30 degrees, abduction to 50 degrees, internal rotation to 70 degrees, external rotation to 30 degrees, all without pain. - Gait: Normal. RADIOGRAPHS: Personally reviewed by myself demonstrating Imaging: - X-ray: No abnormalities noted. The right hip replacement appears intact with normal bone quality. IMPRESSION: Encounter Diagnosis ICD-10-CM 1. Trochanteric bursitis of right hip M70.61 XR HIP GENERAL 3V PELV/AP/LAT RIGHT CONSULT TO PHYSICAL THERAPY 2. Piriformis syndrome, right G57.01 XR HIP GENERAL 3V PELV/AP/LAT RIGHT CONSULT TO PHYSICAL THERAPY 3. Aftercare following right hip joint replacement surgery Z47.1 XR HIP GENERAL 3V PELV/AP/LAT RIGHT Z96.641 Plan: 1. Trochanteric bursitis of right hip (M70.61) - Examination reveals tenderness over the greater trochanter with no significant pain during hip abduction or internal rotation. - X-ray shows no abnormalities in the hip replacement; bone quality is normal. - Advised use of Voltaren gel and regular application of ice to the affected area. - Recommended avoiding direct pressure on the right hip by using a firm pillow when sitting and placing pillows between the knees and feet when lying on the opposite side. - Discussed potential benefits of dry needling to alleviate inflammation and scar tissue. - Patient to continue stretching exercises and consider physical therapy for a tailored exercise program. - Follow-up in two months to assess progress. 2. Piriformis syndrome, right (G57.01) 3. Aftercare following right hip joint replacement surgery (Z47.1) Olive Amaya PA-C October 06, 2024 10:17 AM [facility] 10-06-2024 Note HNO ID: [id number] Author: BETHANY GIPSON RT(R) Service: ? Author Type: Technologist Type: Progress Notes Filed: 10/06/2024 09:10 Note Text: Radiology Service Progress Note PATIENT NAME: Gracie Jones DATE OF SERVICE: October 06, 2024 TIME: 9:09 AM PATIENT IDENTITY VERIFICATION COMPLETED USING TWO (2) IDENTIFIERS: Name and Date of confirmed by patient verbally. FALL SCREENING: Has the patient had 2 falls in the last year or 1 fall with injury or currently using an Ambulatory Assistive Device (Walker, Cane, Wheelchair, Crutches, etc.)? No PATIENT GENDER DATA: Assigned female at . status: : No status: N/A PATIENT RELEVANT IMPLANT DATA REVIEWED: Not Applicable PATIENT PRESENTS WITH AN IMPLANTABLE OR ATTACHED ELECTRIC POWER LINE EXAMINER: No RADIOLOGY DEPARTMENT: General X-ray: Exam(s) Completed: Pelvis X-Ray: Pelvis with Hip Right and Wt. Bearing PERIPHERAL IV DATA: Not applicable SIGNED BY: RT Fei(R) October 06, 2024 9:09 AM [facility] 09-26-2024 Telephone encounter Note Please advise, thank you. [facility] 09-26-2024 Miscellaneous Notes Please advise, thank you. documented in this encounter [facility] 09-26-2024 History of Presen t illness Narrative Images from the original note were not included. HPI: Patient presents in office today with calluses bilaterally as well as nail fungus. Onychomycosis/Toenail Fungus under Podiatric consultations: Patient states that they have noticed changes in the appearance of the toenails for the past chronic The big toe is thickened and discolored. Using CNU is helping. Treatment has consisted of CNU with improvement. Patient does not have pain associated with the toenails. Pt would like callous trimmed back again. Pt has no other concerns today. Exam: General Examination: GENERAL APPEARANCE: awake, aware of surroundings, in no acute distress Vascular: DORSALIS PEDIS PULSE: 2/4, bilaterally POSTERIOR TIBIAL PULSE: 2/4, bilaterally TEMPERATURE GRADIENT: warm to cool EDEMA: none CAPILLARY FILLING TIME(sec): capillary fill intact bilateral digits less than 3 secs Neurologic: NEUROLOGIC: light touch is intact to the plantar foot Dermatologic: SKIN FINDINGS: normal HYPERKERATOSIS: along the plantar sub 2nd MPJ NAIL PATHOLOGY: digits 1 - B/L are long, thickened, discolored, crumbly, brittle, dystrophic and with subungal debris at the distal aspect, there is evidence of clearing along the proximal nails SKIN PATHOLOGY: texture, turgor, hair growth, within normal limits Orthopedic: FOOT MORPHOLOGY: normal JOINT RANGE OF MOTION: normal ankle, subtalar joint and 1st MPJ ROM bilateral DEFORMITIES: none PAIN ELICITED WITH PALPATION OF: No current pain with palpation on the plantar central arch of the left foot. There is no pain along the medial aspect of the posterior tibial tendon or to the navicular tuberosity. No pain to the medial band of the plantar fascia or along the plantar medial calcaneus MUSCLE STRENGTH: 5/5 for all pedal groups tested Assessments: ICD B35.1 - Dermatophytosis of nail: ICD M79.671 - Pain in right foot: ICD M79.672 - Pain in left foot: Callous bilateral foot Posterior tibial tendinitis left Plan: Onychomycosis: 1. Affected nails were trimmed in length and thickness by manual mechanical means. 2. Discussed with the patient the available topical and oral medications for treatment. We specifically discussed the success rate and side effects associated with each treatment. 3. Patient elected to proceed with topical treatment at this time. We discussed use of sljm-pfz-mbgbcuw options such as Micah's vaporub, vinegar applied with a toothbrush, tea tree oil or Formula 3. Also discussed prescription options such as Penlac or Jublia. Patient elected to proceed with Rx for topical Jublia. Rx was sent to the patient's preferred pharmacy. I discussed that the success rate related to this medication is anywhere from 30-40% for curing the fungal nail infection in the toenail(s). 4. Advised twice daily use of the topical medication for the next 6-9 months. If they do not notice improvement then we would consider obtaining fungal culture to determine underlying causative organism, use of formula 3 versus oral medications at that time. RTC: 3 months. documented in this encounter [facility] 06-27-2024 History of Presen t illness Narrative Images from the original note were not included. HPI: Patient presents in office today with calluses bilaterally as well as nail fungus. Onychomycosis/Toenail Fungus under Podiatric consultations: Patient states that they have noticed changes in the appearance of the toenails for the past chronic The big toe is thickened and discolored. Using CNU is helping. Treatment has consisted of CNU with improvement. Patient does not have pain associated with the toenails. Pt would like callous trimmed back again. Pt has no other concerns today. Exam: General Examination: GENERAL APPEARANCE: awake, aware of surroundings, in no acute distress Vascular: DORSALIS PEDIS PULSE: 2/4, bilaterally POSTERIOR TIBIAL PULSE: 2/4, bilaterally TEMPERATURE GRADIENT: warm to cool EDEMA: none CAPILLARY FILLING TIME(sec): capillary fill intact bilateral digits less than 3 secs Neurologic: NEUROLOGIC: light touch is intact to the plantar foot Dermatologic: SKIN FINDINGS: normal HYPERKERATOSIS: along the plantar sub 2nd MPJ NAIL PATHOLOGY: digits 1 - B/L are long, thickened, discolored, crumbly, brittle, dystrophic and with subungal debris at the distal aspect, there is evidence of clearing along the proximal nails SKIN PATHOLOGY: texture, turgor, hair growth, within normal limits Orthopedic: FOOT MORPHOLOGY: normal JOINT RANGE OF MOTION: normal ankle, subtalar joint and 1st MPJ ROM bilateral DEFORMITIES: none PAIN ELICITED WITH PALPATION OF: No current pain with palpation on the plantar central arch of the left foot. There is no pain along the medial aspect of the posterior tibial tendon or to the navicular tuberosity. No pain to the medial band of the plantar fascia or along the plantar medial calcaneus MUSCLE STRENGTH: 5/5 for all pedal groups tested Assessments: ICD B35.1 - Dermatophytosis of nail: ICD M79.671 - Pain in right foot: ICD M79.672 - Pain in left foot: Callous bilateral foot Posterior tibial tendinitis left Plan: ICD B35.1 - Dermatophytosis of nail: Onychomycosis: 1. Affected nails were debrided in length and thickness by manual and mechanical means. 2. Instructed patient that there is clearing noted to the affected tonails. We discussed that it can take 6-9 months for a toenail to completely grow out and that they should continue to notice improvement over time. 3. Advised patient on continued use of the topical medication to the affected toenails and conservative treatment options discussed to prevent recurrence. 4. RTC: 3-4 months for recheck. documented in this encounter [facility] 03-29-2024 Evaluation note Diagnosis Pre-op evaluation- Primary Preoperative examination, unspecified Stage 3 chronic kidney disease, unspecified whether stage 3a or 3b CKD (HCC) Pre-op evaluation- Primary Preoperative examination, unspecified Pain, unspecified Stage 3a chronic kidney disease (HCC) Elevated BP without diagnosis of hypertension PONV (postoperative nausea and vomiting) Nausea with vomiting Aftercare following right hip joint replacement surgery documented in this encounter [facility]11-11-[facility]24 Instructions* Patient Instructions* Olive Amaya PA-C - 03/28/2024 8:47 AM EST Images from the original note were not included. Hip Bursitis stretching exercises: Do stretching exercises per handout. Hold each stretch for 20-30 seconds and repeat 3-5 times. Do stretches first thing in the morning, before and after walking for exercise and at bedtime. Also anytime throughout the day when feeling tight. Ice to side of hip 2-3 times a day for 20 minutes. Avoid direct pressure to the hip by sitting on a pillow in the car or any chair that is irritating.Avoid laying on affected side. Use Voltaren gel to side of hip and buttock 3-4 times a day for inflammation. [facility] NoteHNO ID: [id number] Author: OLIVE AMAYA PA-C Service: ? Author Type: Physician Music Director Type: Progress Notes Filed: 03/28/2024 17:10 Note Text: This document has been created with the use of voice recognition technology. It may contain inaccuracies: misspellings, inaccurate syntax or word sense that escaped review. Chief complaint: Recheck of right hip Right THR 03/17/2023 (1 year ) HISTORY: Gracie is a 73 year old female. Patient comes in today for follow up of her right hip. Patient has a past medical history, medications and allergies were reviewed. She reports that the hip itself is actually doing quite well but is having some soreness into her low back and buttock. She states this is worse if she drives a lot. She first gets up after sitting. Denies radicular symptoms down the leg. Denies anterior hip pain. Does have some discomfort laterally. Pain level is a 5/10. No other musculoskeletal complaints ROS : REVIEW OF SYMPTOMS: Constitutional: patient denies any recent fever or significant change in weight Gastrointestinal: patient notes history of intolerance to NSAIDs due to chronic kidney disease Musculoskeletal: as noted in the HPI Neurologic: as noted in the HPI SOCIAL HISTORY: Tobacco Use: .15 packs/day, for 1 years. Quit 05/18/1973. Types: Cigarettes PAST MEDICAL HISTORY Diagnosis Date Stage 3 chronic kidney disease (HCC) 12/09/2021 PAST SURGICAL HISTORY Procedure Laterality Date SECTION HX x2 COLONOSCOPY SCREENING KERATOPLASTY ENDOTHELIAL Right 04/14/2022 KERATOPLASTY ENDOTHELIAL Left 03/17/2022 PAST SURGICAL HISTORY OF BLEPHAROPLASTY UPPER TOTAL HIP REPLACEMENT Right XR CERVICAL FUSION OR Medications reviewed. ALLERGIES No Known Allergies Social History Tobacco Use Smoking status: Former Current packs/day: 0.00 Average packs/day: 0.2 packs/day for 1 year (0.2 ttl pk-yrs) Types: Cigarettes Start date: 1972 Quit date: 1973 Years since quittin.8 Smokeless tobacco: Never Substance Use Topics Alcohol use: Yes Comment: occasionally Drug use: Not Currently Comment: denies tx for drug/alcohol abuse in the past. EXAMINATION: GENERAL: Appears healthy, well-nourished, no deformities. ORIENTATION: Alert and oriented to person place and time HABITUS: Normal GAIT: Ambulates with a slight antalgic gait on start up and then relatively normal gait thereafter On physical exam of the right hip today, she has excellent hip range of motion without irritability. Has some lateral hip discomfort at extreme of internal rotation. Significant tenderness of the greater trochanter and moderate tenderness over the sciatic notch. Negative SLR for radicular symptoms. Motor and sensory are intact. RADIOGRAPHS: Personally reviewed by myself demonstrating right THR components in satisfactory position interfaces noted. No evidence of wear or loosening. No other osseous abnormalities. Good maintenance of joint space of the left hip. IMPRESSION: Encounter Diagnosis ICD-10-CM 1. Trochanteric bursitis of right hip M70.61 2. Piriformis syndrome, right G57.01 3. Aftercare following right hip joint replacement surgery Z47.1 XR PELVIS 1V AP Z96.641 Plan: Overall the hip itself is doing well but she has significant trochanteric bursitis and moderate piriformis syndrome of the right hip. She was instructed on hip stretching exercises and a handout was given. We discussed using Voltaren gel topically 3-4 times a day to decrease inflammation. Discussed avoidance of direct pressure and ice to the lateral aspect of the hip and buttock. Will give this a bit of time. Follow-up in 4 weeks for recheck. May consider cortisone injection or possibly formal physical therapy at that time if necessary. She agrees with this plan. Olive Amaya PA-C March 28, 2024 8:21 [facility]11-11-2024 History of Present illness Narrative * Olive Amaya PA-C - 03/28/2024 8:21 AM EST This document has been created with the use of voice recognition technology. It may contain inaccuracies: misspellings, inaccurate syntax or word sense that escaped review. Chief complaint: Recheck of right hip Right THR 03/17/2023 (1 year ) HISTORY: Gracie is a 73 year old female. Patient comes in today for follow up of her right hip. Patient has a past medical history, medications and allergies were reviewed. She reports that the hip itself is actually doing quite well but is having some soreness into her low back and buttock. She states this is worse if she drives a lot. She first gets up after sitting. Denies radicular symptoms down the leg. Denies anterior hip pain. Does have some discomfort laterally. Pain level is a 5/10. No other musculoskeletal complaints ROS : REVIEW OF SYMPTOMS: Constitutional: patient denies any recent fever or significant change in weight Gastrointestinal: patient notes history of intolerance to NSAIDs due to chronic kidney disease Musculoskeletal: as noted in the HPI Neurologic: as noted in the HPI SOCIAL HISTORY: Tobacco Use: .15 packs/day, for 1 years. Quit 05/18/1973. Types: Cigarettes PAST MEDICAL HISTORY Diagnosis Date Stage 3 chronic kidney disease (HCC) 12/09/2021 PAST SURGICAL HISTORY Procedure Laterality Date SECTION HX x2 COLONOSCOPY SCREENING KERATOPLASTY ENDOTHELIAL Right 04/14/2022 KERATOPLASTY ENDOTHELIAL Left 03/17/2022 PAST SURGICAL HISTORY OF BLEPHAROPLASTY UPPER TOTAL HIP REPLACEMENT Right XR CERVICAL FUSION OR Medications reviewed. ALLERGIES No Known Allergies Social History Tobacco Use Smoking status: Former Current packs/day: 0.00 Average packs/day: 0.2 packs/day for 1 year (0.2 ttl pk-yrs) Types: Cigarettes Start date: 1972 Quit date: 1973 Years since quittin.8 Smokeless tobacco: Never Substance Use Topics Alcohol use: Yes Comment: occasionally Drug use: Not Currently Comment: denies tx for drug/alcohol abuse in the past. EXAMINATION: GENERAL: Appears healthy, well-nourished, no deformities. ORIENTATION: Alert and oriented to person place and time HABITUS: Normal GAIT: Ambulates with a slight antalgic gait on start up and then relatively normal gait thereafter On physical exam of the right hip today, she has excellent hip range of motion without irritability. Has some lateral hip discomfort at extreme of internal rotation. Significant tenderness of the greater trochanter and moderate tenderness over the sciatic notch. Negative SLR for radicular symptoms.Motor and sensory are intact. RADIOGRAPHS: Personally reviewed by myself demonstrating right THR components in satisfactory position interfaces noted. No evidence of wear or loosening. No other osseous abnormalities. Good maintenance of joint space of the left hip. IMPRESSION: Encounter Diagnosis ICD-10-CM 1. Trochanteric bursitis of right hip M70.61 2. Piriformis syndrome, right G57.01 3. Aftercare following right hip joint replacement surgery Z47.1 XR PELVIS 1V AP Z96.641 Plan: Overall the hip itself is doing well but she has significant trochanteric bursitis and moderate piriformis syndrome of the right hip. She was instructed on hip stretching exercises and a handout was given. We discussed using Voltaren gel topically 3-4 times a day to decrease inflammation. Discussed avoidance of direct pressure and ice to the lateral aspect of the hip and buttock. Will give this a bit of time. Follow-up in 4 weeks for recheck. May consider cortisone injection or possibly formal physical therapy at that time if necessary. She agrees with this plan. Olive Amaya PA-C March 28, 2024 8:21 AM documented in [facility] encounter[facility] NoteHNO ID: [id number] Author: HENNY SOW RT(R) Service: ? Author Type: Technologist Type: Progress Notes Filed: 03/28/2024 08:12 Note Text: Radiology Service Progress Note PATIENT NAME: Gracie Jones DATE OF SERVICE: March 28, 2024 TIME: 8:11 AM PATIENT IDENTITY VERIFICATION COMPLETED USING TWO (2) IDENTIFIERS: Name and Date of confirmed by patient verbally. FALL SCREENING: Has the patient had 2 falls in the last year or 1 fall with injury or currently using an Ambulatory Assistive Device (Walker, Cane, Wheelchair, Crutches, etc.)? No PATIENT GENDER DATA: Female. status: : No status: NO. PATIENT RELEVANT IMPLANT DATA REVIEWED: Not Applicable PATIENT PRESENTS WITH AN IMPLANTABLE OR ATTACHED ELECTRIC POWER LINE EXAMINER: No RADIOLOGY DEPARTMENT: General X-ray: Exam(s) Completed: Pelvis X-Ray: Pelvis General AP PERIPHERAL IV DATA: Not applicable SIGNED BY: Henny Sow, RT(R) March 28, 2024 8:11 [facility]10-28-2024 History of Present illness Narrative* Teresa Croft, PT - 03/14/2024 1:00 PM EDT Physical Therapy Treatment Visit Patient Name: Gracie Jones Today's Date: 03/14/2024 Encounter Diagnoses Name Primary? Dizziness Yes Cervical paraspinal muscle spasm Visit number: 6 Timed Code Treatment: 40 minutes Total Treatment Time: 55 minutes Time In: 1300 Time Out: 1355 History: Pt. Presents to PT with c/c of dizziness while turning her head for sudden movements. Pt. Noticed the dizzy spells started 1-2 years ago. Denies N/T into UE. Pt. Had fusion anterior C4-6 in 2013. Pt. Reports she when she gets dizzy spell she has to lay down for awhile. Unable to function with dizzy spells. Neck pain mostly throughout the day. Precautions: Right NISHA Subjective: Pt. Continues to experience dizzy spells throughout the day. No triggers and reasons for onset. Pain: denies Objective: PT Evaluation (02/24/24) Neck ROM: flexion/extension functional ROM, Rotation R- 20 deg L-15 deg, Side bending R 15 deg, L 15 deg, Shoulder ROM: WFL in all planes Joint: not tested due to cervical fusion at C4 to C6 Flexibility: bilateral upper trapezius muscle tightness, moderate + bilateral cervical paraspinal muscle tightness Palpation: increased bilateral cervical paraspinal muscle tightness Strength: 4-/5 bilateral scapular, deep neck flexor 4-/5 Observation: moderate to severe limitation in her cervical ROM Special test: negative Glide-hallpik bilateral Treatment: Manual Therapy: (25 minutes) Delivered manual ther pt supine: cervical PROM in rotation/SB, cervical paraspinal MFR, UT stretching, SOR, Passive ROM Therapeutic Exercise: (15 minutes supervised) Guided pt through ther and flex exercise per grid to improve cervical mobility and postural strength Therapeutic Activity: Exercises to improve dynamic activities, functional tasks, functional mobility to return to prior activity level Neuromuscular re-education:( minutes supervised) Balance Training, Muscle Facilitation, Dynamic Stability, Core Stabilization, and Blood Flow Restriction Training (BFRT) Modalities: (15 minutes) Post session pt supine: IFC with MHP to cervical spine to decrease tone and muscle soreness Assessment: Pt has participated in 6 PT session with start of POC on 02/24/24 for dizziness, neck pain and tightness. Pt. Continues to demonstrates cervical spine hypomobility. Pt. Did experience dizziness whileperforming UBE and perform cerivcal manual techniques (distraction) which helped dizziness go away. Performed more manual techniques to help improve flexibility today. Ended session with IFC/MHP Short Term Goal: To be met in 2 weeks Goal 1: Pt to be instructed in home exercise program. Insole Cementer Goals: To be met in 10 weeks Goal 1: Pt to report independence and compliance with home program. Goal 2: Pt. Will report of 0/10 neck pain while performing daily tasks to help improve her quality of life. Goal 3: Pt. Will demonstrate normal cervical paraspinal muscle and upper trapezius muscle flexibility to help improve her functional mobility and have less dizziness with turning head. Goal 4: Pt. Will report of no dizziness while turning her head to perform daily tasks. Goal 5: Pt. Will demonstrate 5/5 scapular strength to help improve her upright posture and decreasestress on cervical spine. Pt will benefit from skilled PT for 2x/week from 02/24/24 to 05/04/24 to address the above impairments. I hereby deem this POC medically necessary. Please sign below. Date: documented in this encounterDo[facility] [id number] History of Present illness Narrative* Evelyn Link, PELLETIZER - 03/11/2024 8:00 AM EDT Physical Therapy Treatment Visit Patient Name: Gracie Jones Today's Date: 03/11/2024 Encounter Diagnoses Name Primary? Dizziness Yes Cervical paraspinal muscle spasm Visit number: 5 Timed Code Treatment: 40 minutes Total Treatment Time: 55 minutes Time In: 7:56 AM Time Out: 8:52 AM History: Pt. Presents to PT with c/c of dizziness while turning her head for sudden movements. Pt. Noticed the dizzy spells started 1-2 years ago. Denies N/T into UE. Pt. Had fusion anterior C4-6 in 2013. Pt. Reports she when she gets dizzy spell she has to lay down for awhile. Unable to function with dizzy spells. Neck pain mostly throughout the day. Precautions: Right NISHA Subjective: Denies pain or issue with last session, dizziness continues to be main complaint and comes from her stomach. Pain: denies Objective: PT Evaluation (02/24/24) Neck ROM: flexion/extension functional ROM, Rotation R- 20 deg L-15 deg, Side bending R 15 deg, L 15 deg, Shoulder ROM: WFL in all planes Joint: not tested due to cervical fusion at C4 to C6 Flexibility: bilateral upper trapezius muscle tightness, moderate + bilateral cervical paraspinal muscle tightness Palpation: increased bilateral cervical paraspinal muscle tightness Strength: 4-/5 bilateral scapular, deep neck flexor 4-/5 Observation: moderate to severe limitation in her cervical ROM Special test: negative Glide-hallpik bilateral Treatment: Manual Therapy: (15 minutes) Delivered manual ther pt supine: cervical PROM in rotation/SB, cervical paraspinal MFR, UT stretching, SOR, Passive ROM Therapeutic Exercise: (10 minutes supervised) Guided pt through ther and flex exercise per grid to improve cervical mobility and postural strength Therapeutic Activity: Exercises to improve dynamic activities, functional tasks, functional mobility to return to prior activity level Neuromuscular re-education:(15 minutes supervised) Balance Training, Muscle Facilitation, Dynamic Stability, Core Stabilization, and Blood Flow Restriction Training (BFRT) Modalities: (15 minutes) Post session pt supine: IFC with MHP to cervical spine to decrease tone and muscle soreness Assessment: Pt has participated in 5 PT session with start of POC on 02/24/24 for dizziness, neck pain and tightness. C/O dizziness with mild headache post last session but not long lasting. Cervical pain and tightness improving. Continues with manual ther, neuro and ther ex with pt tolerating well. Visual habituations did not produce dizziness. Ended session with IF/P Outcome Measure: Rehab Diagnosis: Short Term Goal: To be met in 2 weeks Goal 1: Pt to be instructed in home exercise program. Insole Cementer Goals: To be met in 10 weeks Goal 1: Pt to report independence and compliance with home program. Goal 2: Pt. Will report of 0/10 neck pain while performing daily tasks to help improve her quality of life. Goal 3: Pt. Will demonstrate normal cervical paraspinal muscle and upper trapezius muscle flexibility to help improve her functional mobility and have less dizziness with turning head. Goal 4: Pt. Will report of no dizziness while turning her head to perform daily tasks. Goal 5: Pt. Will demonstrate 5/5 scapular strength to help improve her upright posture and decreasestress on cervical spine. Pt will benefit from skilled PT for 2x/week from 02/24/24 to 05/04/24 to address the above impairments. I hereby deem this POC medically necessary. Please sign below. Date: documented in this encounterDoctors Hospital of [id number] History of Present illness Narrative* Kota Bonilla MD - 02/16/2024 10:49 AM EDTAssociated Problem(s): Cervical paraspinal muscle spasm PT. Add Mg. No clear need for Rx muscle relaxant, but pt could have tizanidine 4 if/when desired. * Kota Bonilla MD - 02/16/2024 10:48 AM EDTAssociated Problem(s): Dizziness --- cervicogenic dizziness. PT 2nd opinion - [facility], [facility] or [facility]. * Kota Bonilla MD - 02/16/2024 10:15 AM EDT Images from the original note were not included. Outpatient Progress Note Prev Appt: Visit date not found Chief Complaint Patient presents with Cervical Spondylosis Assessment and Plan - Dizziness --- cervicogenic dizziness. PT 2nd opinion - [facility], [place] or [facility]. Cervical paraspinal muscle spasm PT. Add Mg. No clear need for Rx muscle relaxant, but pt could have tizanidine 4 if/when desired. No orders of the defined types were placed in this encounter. Follow-Up - Follow up PRN. History of Present Illness, Associated Treatments and Results - Dx MYOFASCIITIS . DIZZINESS . (CERV SPOND) Tx AEs Hx When exercising e.g. yoga, with certain movements, will suddenly become dizzy. Some neck pain, none down the arms. Underwent PT, improved. No PARADA, fever, vertigo. Onset 2023 Semeiology Imaging Testing Surgery Fusion anterior C4-6 (~2013, [facility]) Failed Physical Exam - General appearance, mentation, extraocular movements, facial strength and movement, hearing, upper and lower extremity strength and tone, sensation to gross testing, coordination, and gait are normalor at baseline unless noted below. HEENT - ___, unchanged: ___, orig: ___ MS - ___, unchanged: ___, orig: ___ CNN - ___, unchanged: ___, orig: ___ Motor - APB 4B , unchanged: ___, orig: ___ Sens - ___, unchanged: ___, orig: ___ Reflex - ___, unchanged: ___, orig: ___ Coord - ___, unchanged: ___, orig: ___ Gait - ___, unchanged: ___, orig: ___ Vestib - ___, unchanged: ___, orig: ___ MSK - Spasm - SCM Tr vsev C sev T L mod ... ROM abd 30B rot 45B, unchanged: ___, orig: ___ Other - ___, unchanged: ___, orig: ___ Vital Signs - Visit Vitals BP 137/87 Pulse 71 Ht 5' 2 Wt 155 lb BMI 28.35 kg/m Smoking Status Former BSA 1.75 m Review of Systems - . Const: Denies appetite change, fever, chills. Allergy: Denies medication reaction. Ocular: Denies visual acuity change. ENT: Denies hearing change. Endoc: Denies weight loss. Resp: Denies dyspnoea, wheezing. Cardiac: Denies angina, palpitations. GI: Denies nausea, vomiting. Haem: Denies bleeding. : Denies incontinence. MSK: Denies arthralgias, joint oedema. Derm: Denies rash, hair loss. Neuro: Denies ataxia, tremor. Also see HPI for elements of ROS documented therein and for details of positive findings, which shall supersede the foregoing. PMH, PSH, Allergies, FH, SH - Past Medical History: Diagnosis Date Anxiety Breast cancer ([facility]) 1993 x3 Past Surgical History: Procedure Laterality Date BREAST LUMPECTOMY Bilateral 1993 BREAST RECONSTRUCTION 1994 SECTION, LOW TRANSVERSE x2 1972, 1975 Allergies Allergen Reactions Hydrocodone-Acetaminophen Nausea Only Oxycodone Nausea Only Mosquito (Diagnostic) Swelling Propofol Unknown Family History Problem Relation Name Age of Onset Uterine cancer Maternal Grandmother Outpatient Encounter Medications as of 02/16/2024 Medication Sig Dispense Refill celecoxib (CeleBREX) 100 MG capsule 1 (one) time each day at the same time. ciprofloxacin (Cipro) 500 MG tablet Take 500 mg by mouth in the morning and 500 mg before bedtime. ketorolac (Acular) 0.5 % ophthalmic solution USE 1 DROP IN THE RIGHT EYE FOUR TIMES DAILY. No facility-administered encounter medications on file as of 02/16/2024. Kota Bonilla M.D. documented in this encounterDoctors Hospital of [id number] Evaluation note* Diagnosis Pre-op evaluation- Primary Preoperative examination, unspecified Stage 3 chronic kidney disease, unspecified whether stage 3a or 3b CKD (HCC) Primary osteoarthritis of right hip Primary localized osteoarthrosis, pelvic region and thigh Pre-op evaluation- Primary Preoperative examination, unspecified Pain, unspecified Stage 3a chronic kidney disease (HCC) Elevated BP without diagnosis of hypertension PONV (postoperative nausea and vomiting) Nausea with vomiting documented in this encounter [facility]09[facility]17[facility] Evaluation note* Diagnosis Pre-op evaluation- Primary Preoperative examination, unspecified Stage 3 chronic kidney disease, unspecified whether stage 3a or 3b CKD (HCC) Pre-op evaluation- Primary Preoperative examination, unspecified Pain, unspecified Stage 3a chronic kidney disease (HCC) Elevated BP without diagnosis of hypertension PONV (postoperative nausea and vomiting) Nausea with vomiting Aftercare following right hip joint replacement surgery documented in this encounter [facility]09-[facility] Evaluation note* Diagnosis Pre-op evaluation- Primary Preoperative examination, unspecified Stage 3 chronic kidney disease, unspecified whether stage 3a or 3b CKD (HCC) Pre-op evaluation- Primary Preoperative examination, unspecified Pain, unspecified Stage 3a chronic kidney disease (HCC) Elevated BP without diagnosis of hypertension PONV (postoperative nausea and vomiting) Nausea with vomiting Aftercare following right hip joint replacement surgery documented in this encounter [facility]08-26-[facility] Telephone encounter Note* Telephone Encounter - Isaiah Arriaga MD - 01/11/2024 2:47 PM EDT rx [facility] to [facility] patient notified of the dosage change Isaiah Arriaga II, MD [facility]08-26-2024 Miscellaneous Notes* Telephone Encounter - Isaiah Arriaga MD - 01/11/2024 2:47 PM EDT rx sent to [facility] patient notified of the dosage change Isaiah Arriaga II, MD documented in this encounterSelect Medical [facility]05-08-2024 Instructions* Patient Instructions* Olive Amaya PA-C - 09/23/2023 8:58 AM EDT Images from the original note were not included. Do stretching exercises per handout. Hold each stretch for 20-30 seconds and repeat 3-5 times. Do stretches first thing in the morning, before and after walking for exercise and at bedtime. Also anytime throughout the day when feeling tight. Ice to side of hip 2-3 times a day for 20 minutes. Avoid direct pressure to the hip by sitting on a pillow in the car or any chair that is irritating.Avoid laying on affected side. Use Voltaren gel topically to the side of the hip 3-4 times a day to decrease inflammation. Follow up in 3-4 weeks if pain persists for possible cortisone injection. documented in this encounterSelect [facility]05-08-2024 History of Present illness Narrative* Olive Amaya PA-C - 09/23/2023 8:32 AM EDT This document has been created with the use of voice recognition technology. It may contain inaccuracies such as misspellings, inaccurate syntax or word sense that escaped review. Chief complaint: Recheck of right hip Right THR 03/17/2023 (6 months) HISTORY: Gracie is a 73 year old female. Patient comes in today for follow up of her right hip. She reports overall the hip is doing quite well. She does get some discomfort at the lateral hip at times after she exercises. She states pain is well controlled with no medication otherwise. Making good progress with physical therapy. Pain level 0-3/10. No other musculoskeletal complaints PAST MEDICAL HISTORY Diagnosis Date Stage 3 chronic kidney disease (HCC) 12/09/2021 PAST SURGICAL HISTORY Procedure Laterality Date SECTION HX x2 COLONOSCOPY SCREENING KERATOPLASTY ENDOTHELIAL Right 04/14/2022 KERATOPLASTY ENDOTHELIAL Left 03/17/2022 PAST SURGICAL HISTORY OF BLEPHAROPLASTY UPPER TOTAL HIP REPLACEMENT Right XR CERVICAL FUSION OR Medications reviewed. ALLERGIES No Known Allergies Social History Tobacco Use Smoking status: Former Packs/day: 0.15 Years: 1.00 Additional pack years: 0.00 Total pack years: 0.15 Types: Cigarettes Start date: 1972 Quit date: 1973 Years since quittin.3 Smokeless tobacco: Never Substance Use Topics Alcohol use: Yes Comment: occasionally Drug use: Not Currently Comment: denies tx for drug/alcohol abuse in the past. EXAMINATION: GENERAL: Appears healthy, well-nourished, no deformities. ORIENTATION: Alert and oriented to person place and time HABITUS: Normal GAIT: Normal, the patient did not have trouble getting onto the exam table. On physical exam of the right hip today, Appearance: No warmth or redness, wound is healing satisfactorily with no sign of infection. Calf is soft and nontender. Negative Homans. Tenderness: Significant tenderness over the greater trochanter Swelling: No swelling of the hip itself, no swelling distally Range of motion: Excellent hip range of motion easily, with just tightness at extremes of abductionand external rotation RADIOGRAPHS: Personally reviewed by myself and with the patient today demonstrating right THR components satisfactory position with good interfaces noted. No evidence of wear or loosening. Good general alignment. IMPRESSION: Encounter Diagnosis ICD-10-CM 1. Trochanteric bursitis of right hip M70.61 2. Aftercare following right hip joint replacement surgery Z47.1 XR PELVIS 1V AP Z96.641 We discussed that her hip is doing well but she has trochanteric bursitis of the right hip. We discussed conservative treatments including avoidance for pressure, ice and stretching exercises which were reviewed with her today and handout given. Discussed topical Voltaren gel as well. Discussed possibility of cortisone injection in the future if necessary. Follow-up as needed or in 6 months for annual recheck. She agrees with this plan. Olive Amaya PA-C September 23, 2023 8:34 AM documented in this encounterSelect [facility]05-[facility]-2024 History of Present illness Narrative* Evette Nascimento, RT(R) - 09/23/2023 8:10 AM EDT Radiology Service Progress Note PATIENT NAME: Gracie Jones DATE OF SERVICE: September 23, 2023 TIME: 8:12 AM PATIENT IDENTITY VERIFICATION COMPLETED USING TWO [...] PATIENT PRESENTS WITH AN IMPLANTABLE OR ATTACHED ELECTRIC POWER LINE EXAMINER: No RADIOLOGY DEPARTMENT: General X-ray: Exam(s) Completed: Pelvis X-Ray: Pelvis General AP PERIPHERAL IV DATA: Not applicable SIGNED BY: RT Thuy(R) September 23, 2023 8:12 AM [facility] Telephone encounter Note * Telephone Encounter - Isaiah Arriaga MD - 09/07/2023 3:45 PM EDT rx [facility] to [facility] patient notified Isaiah Arriaga II, MD [facility]04-22-2024 Miscellaneous Notes* Telephone Encounter - Isaiah Arriaga MD - 09/07/2023 3:45 PM EDT rx sent to [facility] patient notified Isaiah Arriaga II, MD documented in this encounter[facility]-26-[facility]24 Miscellaneous Notes* Telephone Encounter - Isaiah Arriaga MD - 08/11/2023 8:59 AM EDT rx sent to [facility] patient notified of the dosage change Isaiah Arriaga II, MD documented in this [facility]21-2024 Miscellaneous Notes* Telephone Encounter - Danna Amin MA - 08/06/2023 10:10 AM EDT Called patient and she is doing well and would like to wait till 1 year follow up rescheduled her for February 2024 Danna Amin MA * Telephone Encounter - Delphine Srivastava - 08/05/2023 2:13 PM EDT Gracie is calling Isaiah Arriaga II, MD today to request Appointment Patient has appt 09/06 and wanted to know if she was to reschedule that, when would be the next available appt? Please advise. Patient has been identified by name and birthdate. Duration of symptoms: N/A Person calling: self Call patient at: at home [phone] (home) Was an appointment scheduled: No Closing statement: Results or non-symptom based questions: Thank you for calling [facility], your call will be returned within the next business day. Delphine Srivastava documented in this [facility]12-13-2023 History of Present illness Narrative* Isaiah Arriaga MD - 04/29/2023 2:00 PM EST see dictated note Isaiah Arriaga II, MD documented in this [facility]12-11-2023 Evaluation note* Encounter Date Diagnosis Assessment Notes Treatment Notes Treatment Clinical Notes Apr, Cervical spondylosis (ICD-10 - M47.812) Lengthy discussion regarding underlying pathology and CT head and cervical spine results. I did discuss with her my concerns from a chronic standpoint. Did discuss appropriate neck support and pillows for bedtime. Did highly encourage physical therapy acutely and for wellness long-term. Patient is agreeable to physical therapy. Hardcopy order provided in office today to patient and also faxed to [facility] physical therapy. Cervical spondylosis information printed and discussed with patient in office today. Apr, Other I have spent 30 minutes with/on this patient and over 50% of the visit was counseling done by myself, Lyndsay EDWARDS. *Progress note was completed with the assistance of voice recognition software for dictation purposes. Please excuse any grammatical errors that were not corrected during review process. [employer] Other 11-29-2023 Evaluation note* Encounter Date Diagnosis Assessment Notes Treatment Notes Treatment Clinical Notes Mar, Dizziness (ICD-10 - R42) Lengthy dizziness. We do check A1c in office today, I did explain to her that I want to ensure that she is not having hypoglycemic events possibly secondary to prediabetes/diabete s/insulin resistance. A1c is 5.5 in office. I explained that if she has low hemoglobin, she will experience dizziness however her hemoglobin is back up to the 12's and she is becoming more dizzy with time. The dizziness in office today while sitting is concerning to me. I did check the blood pressure today myself which was normal. We did discuss checking vitamin B12, magnesium, thyroid and metabolic panel. I do have concerns for hyponatremia given her recent lab draws. Continue to drink water normally. Try to eat several small meals a day. I did discuss with her my concerns as her symptoms seem to be worsening acutely postoperatively. Mar, Paresthesias (ICD-10 - R20.2) Again towards the end of the visit she then reports to me numbness to the first 3 digits of both hands bilaterally since surgery. Given the worsening dizziness, I do have intercranial concerns. I did explain that she could present to ER and they would draw lab work and complete diagnostic imaging right away. Such issues as TIA cannot be ruled out. Patient is fairly adamant about not reporting to ER. She does understand the risks. This point I would like to move forward with lab draw and CT cervical spine and brain. Patient is agreeable, will send [facility]. Mar, Other I have spent 45 minutes with this patient and over 50% of the visit was counseling done by myself, Lyndsay EDWARDS. *Progress note was completed with the assistance of voice recognition software for dictation purposes. Please excuse any grammatical errors that were not corrected during review process. [employer] Other 11-27-2023 Instructions* Patient Instructions* Olive Amaya PA-C - 04/13/2023 11:05 AM EST Continue Physical Therapy Walk twice a day for exercise paying attention to your gait. Heel to toe and longer strides. You may wash the incision and treat like normal skin. Tissue massage to the skin around the incision to loosen it up, 2 minutes multiple times a day. You may use lotion on the incision/glue several times a day to soften the glue. Do not pick at the scabs. Let them fall off on their own. You may use heat on a low setting to relax tissues. Use Ice after activity/exercise. Heat loosen things up, Ice quiets things down. documented in this encounter[facility]11-27-2023 History of Present illness Narrative* Olive Amaya PA-C - 04/13/2023 11:04 AM EST This document has been created with the use of voice recognition technology. It may contain inaccuracies such as misspellings, inaccurate syntax or word sense that escaped review. Chief complaint: Recheck of right hip Right THR 03/17/2023 (4 weeks) HISTORY: Gracie is a 72 year old female. Patient comes in today for follow up of her right hip nonoperatively. She reports overall she is doing well though she has felt off-and-on lightheadedness since surgery. She admits that she is not drinking as much water as she used to. She is checked her blood pressure a few times and sometimes has been up and sometimes is up and down. She states pain is well controlled with no medication. Making good progress with physical therapy. Ambulating without assistance. Pain level 0-2/10. No other musculoskeletal complaints PAST MEDICAL HISTORY Diagnosis Date Stage 3 chronic kidney disease (HCC) 12/09/2021 PAST SURGICAL HISTORY Procedure Laterality Date SECTION HX x2 COLONOSCOPY SCREENING KERATOPLASTY ENDOTHELIAL Right 04/14/2022 KERATOPLASTY ENDOTHELIAL Left 03/17/2022 PAST SURGICAL HISTORY OF BLEPHAROPLASTY UPPER XR CERVICAL FUSION OR Medications reviewed. ALLERGIES No Known Allergies Social History Tobacco Use Smoking status: Former Packs/day: 0.15 Years: 1.00 Additional pack years: 0.00 Total pack years: 0.15 Types: Cigarettes Start date: 1972 Quit date: 1973 Years since quittin.9 Smokeless tobacco: Never Substance Use Topics Alcohol use: Yes Comment: occasionally Drug use: Not Currently Comment: denies tx for drug/alcohol abuse in the past. EXAMINATION: GENERAL: Appears healthy, well-nourished, no deformities. ORIENTATION: Alert and oriented to person place and time HABITUS: Normal GAIT: Ambulating with a slight flat-footed gait though she can correct this when she concentrates and ambulates with a perfectly normal gait without assistance. On physical exam of the right hip today, Appearance: No warmth or redness, wound is healing satisfactorily with no sign of infection. Calf is soft and nontender. Negative Homans. Tenderness: Mild tightness and tenderness posterior to the incision Swelling: Minimal swelling of the lateral hip itself, no swelling distally Range of motion: Tolerates hip range of motion easily, with just tightness at extremes Blood pressure today 132/80 RADIOGRAPHS: Personally reviewed by myself and with the patient today demonstrating right THR components in satisfactory position with good interfaces noted. No evidence of wear or loosening. Leg lengths are essentially equal. IMPRESSION: Encounter Diagnosis ICD-10-CM 1. Aftercare following right hip joint replacement surgery Z47.1 XR PELVIS 1V AP Z96.641 2. Postoperative lightheadedness R42 CBC Her hip is doing quite well. We discussed walking twice a day for exercise paying attention to her gait. She has 2-1/2 acres and has been walking the perimeter nearly daily. Discussed increasing her water intake to help with lightheadedness. Will obtain a CBC today to make sure blood count has comeback up as expected. May add iron supplement if necessary. She agrees with this plan. Follow-up in 3 weeks for 6-week recheck. Olive Amaya PA-C April 13, 2023 11:05 AM documented in this encounterSelect [facility]11-02-2023 NoteHNO ID: [id number] Author: Maira Mora PA-C Service: Orthopaedic Surgery Author Type: Physician Music Director Type: Progress Notes Filed: 03/19/2023 12:34 PM Note Text: ORTHOPAEDIC POSTOP PROGRESS NOTE SERVICE DATE: 03/19/23 SERVICE TIME: 929 POD #2 s/p Procedure(s) (LRB): ARTHROPLASTY HIP MOSES EXTENDED STAY (Right) Subjective Gracie Robert seen today at bedside. Reports feeling a little lightheaded/nauseous. Hgb 7.4 from 9.8 from 12.2. Afebrile, VSS. Pain controlled Objective VITAL SIGNS: BP 108/56 Pulse 68 Temp (Src) 98.1 (Oral) Resp 16 Ht 5' 2 (1.58m) Wt 150 lb (68.0kg) SpO2 100% LMP 07/18/2001 BMI 27.43 kg/(m2). O2 Therapy: Room Air PHYSICAL EXAMINATION: GENERAL: Alert, no distress, cooperative Right Lower Extremity: Dorsalis pedis pulses palpable. Posterior tibial pulses palpable. Dorsi flexion 5/5. Plantar flexion 5/5. Extensor hallucis extension: 5/5. Sensory intact to light touch L1-S1. Dressing clean, dry, and intact. Surgical site no drainage and Silverlon intact. INTAKE AND OUTPUT: Intake/Output Summary (Last 24 hours) at 03/19/2023 1228 Last data filed at 03/19/2023 1223 Gross per 24 hour Intake 2290 ml Output 500 ml Net 1790 ml Problem Review and Assessment: Patient monitored, no new events overnight. LABS: Recent Labs 03/19/23 0337 03/18/23 0528 03/17/23 1757 WBC 8.20 15.78* 6.52 HB 7.4* 9.8* 12.2 HCT 21.9* 29.1* 37.0 PLT 169 199 218 NA 127* 129* -- K 4.3 4.8 -- CHLOR 92* 97 -- CO2 27 25 -- CREAT 0.92 0.98* -- BUN 15 16 -- GLUC 121* 154* -- CA 7.9* 8.4* -- DATA: Diagnostic tests reviewed for today's visit: Most recent labs Assessment/Plan Patient Active Hospital Problem List: Primary osteoarthritis of right hip (02/18/2023) Stage 3 chronic kidney disease (HCC) (12/09/2021) Hyperlipidemia, unspecified (04/06/2021) Elevated BP without diagnosis of hypertension (09/02/2022) PONV (postoperative nausea and vomiting) (02/18/2023) Hypotension due to hypovolemia (03/17/2023) Sinus bradycardia (03/17/2023) S/P hip replacement, right (03/18/2023) Acute postoperative pain of right hip (03/18/2023) S/P Procedure(s) (LRB): ARTHROPLASTY HIP MOSES EXTENDED STAY (Right) on 03/17/2023 POSTOP PLAN: - Afebrile, VSS - Hgb 7.4 from 9.8 from 12.2. Tolerated therapy without symptoms. Cleared for Discharge per Dr. Arriaga. - WBS: Weight Bearing As Tolerated - Precautions: NISHA - PT/OT recs: outpatient PT - Pain control: Per pain management - DVT ppx/Anticoagulation: aspirin BID x 4 weeks - Care management: Needs TBD I spent a total of 35 minutes on the date of the service which included preparing to see the patient, [id number] patient care, completing clinical documentation, obtaining and/or reviewing separately obtained history, performing a medically appropriate examination, and counseling and educating the patient/family/caregiver. Plan discussed with Dr. Arriaga. Anticoagulant AND Antiplatelet Medications (From admission, onward) Start Dose Route Frequency Last Action Ordered Stop 03/18/23 0900 aspirin, enteric coated 81 mg tab(s) (Surgical Risk Categories) 81 mg ORAL 2 TIMES DAILY Given, 03/19 0835 03/17/231932 -- 03/17/231944 graduated compression stockings ([place]) 03/17/231944 graduated compression stockings ([place], [place]) 03/17/231944 activity - mobilize patient ([place]) VTE Prophylaxis: VTE prophylaxis appropriate POST OPERATIVE COMPLICATIONS: Complicated by: Post-operative HOTN/mental status change, now resolved. SIGNATURE: Maira Mora PA-C PATIENT NAME: Gracie Jones DATE: March 19, 2023 TIME: 12:34 PM PAGER: [phone] Regional [id number] NoteHNO ID: [id number] Author: Maira Mora PA-C Service: Orthopaedic Surgery Author Type: Physician Music Director Type: Progress Notes Filed: 03/18/2023 10:31 AM Note Text: Attestation signed by Isaiah Arriaga MD at 03/19/2023 9:19 AM I have personally performed face to face diagnostic evaluation on this patient. I have examined the patient and reviewed radiographic studies and agree with plan as outlined above. Isaiah Arriaga II, MD March 19, 2023 9:19 AM ORTHOPAEDIC POSTOP PROGRESS NOTE SERVICE DATE: 03/18/23 SERVICE TIME: 0850 POD #1 s/p Procedure(s) (LRB): ARTHROPLASTY HIP MOSES EXTENDED STAY (Right) Subjective Gracie Robert seen today at bedside. Overnight, patient had a rapid response for HOTN, lethargy with brief unresponsiveness. Patient received narcan, 1L LR bolus, and neosynephrine, with improvement in vitals and mentation. No narcotics administered overnight. Patient doing well this AM. Does not remember rapid response. Denies dizziness, weakness, chest pain, SOB. Hgb 9.8 from 12.2. Pain controlled at rest. Objective VITAL SIGNS: BP 100/44[M ivan PA notified[ Pulse 67 Temp (Src) 98.1 (Oral) Resp 18 Ht 5' 2 (1.58m) Wt 150 lb (68.0kg) SpO2 94% LMP 07/18/2001 BMI 27.43 kg/(m2). O2 Therapy: Room Air, Liters: 1.00 PHYSICAL EXAMINATION: GENERAL: Alert, no distress, cooperative NEURO: AANDOx3, motor and sensation grossly intact Right Lower Extremity: Dorsalis pedis pulses palpable. Posterior tibial pulses palpable. Dorsi flexion 5/5. Plantar flexion 5/5. Extensor hallucis extension: 5/5. Sensory intact to light touch L1-S1. Dressing clean, dry, and intact. Surgical site no drainage and Silverlon intact. INTAKE AND OUTPUT: Intake/Output Summary (Last 24 hours) at 03/18/2023 1023 Last data filed at 03/18/2023 0956 Gross per 24 hour Intake 7320 ml Output 750 ml Net 6570 ml Problem Review and Assessment: Patient monitored, no new events overnight. LABS: Recent Labs 03/18/23 0528 03/17/23 1757 WBC 15.78* 6.52 HB 9.8* 12.2 HCT 29.1* 37.0 PLT 199 218 NA 129* -- K 4.8 -- CHLOR 97 -- CO2 25 -- CREAT 0.98* -- BUN 16 -- GLUC 154* -- CA 8.4* -- DATA: Diagnostic tests reviewed for today's visit: Most recent labs Assessment/Plan Patient Active Hospital Problem List: Primary osteoarthritis of right hip (02/18/2023) Stage 3 chronic kidney disease (HCC) (12/09/2021) Hyperlipidemia, unspecified (04/06/2021) Elevated BP without diagnosis of hypertension (09/02/2022) PONV (postoperative nausea and vomiting) (02/18/2023) Hypotension due to hypovolemia (03/17/2023) Sinus bradycardia (03/17/2023) S/P Procedure(s) (LRB): ARTHROPLASTY HIP MOSES EXTENDED STAY (Right) on 03/17/2023 POSTOP PLAN: - Afebrile, VSS overnight after rapid response. No further lethargy. Hgb 9.8 from 12.2. - WBS: Weight Bearing As Tolerated - Precautions: NISHA - PT/OT recs: Pending Recs - Pain control: Tylenol and Toradol x 3 days - DVT ppx/Anticoagulation: aspirin BID x 4 weeks - Care management: Needs TBD I spent a total of 35 minutes on the date of the service which included preparing to see the patient, [id number] patient care, completing clinical documentation, obtaining and/or reviewing separately obtained history, performing a medically appropriate examination, and counseling and educating the patient/family/caregiver. Plan discussed with Dr. Arriaga. Anticoagulant AND Antiplatelet Medications (From admission, onward) Start Dose Route Frequency Last Action Ordered Stop 03/18/23 0900 aspirin, enteric coated 81 mg tab(s) (Surgical Risk Categories) 81 mg ORAL 2 TIMES DAILY Given, 03/18 91303/17/231932 -- 03/17/231944 graduated compression stockings (mt,pa) 03/17/231944 graduated compression stockings (mt,oh) 03/17/231944 activity - mobilize patient (mt,oh) VTE Prophylaxis: VTE prophylaxis appropriate POST OPERATIVE COMPLICATIONS: Complicated by: Post-operative HOTN/mental status change, now resolved. SIGNATURE: Maira Mora PA-C PATIENT NAME: Gracie Jones DATE: March 18, 2023 TIME: 10:31 AM PAGER: [phone] NoteHNO ID: [id number] Author: Tiana Stephens RN Service: Care Management Author Type: Registered Nurse Type: Care Mgt Initial Assessment Filed: 03/18/2023 8:42 AM Note Text: CARE MANAGEMENT: ASSESSMENT AND DISCHARGE PLAN SERVICE DATE: March 18, 2023 SERVICE TIME: 8:39 AM PCP: Lyndsay Dunbar CNP Primary Contact: Extended Emergency Contact Information Primary Emergency Contact: Isaiah Hinson Address: [address] [place] [address] [address] [place] [address] Mobile Relation: Spouse Admission Status: Extended Recovery Insurance Provider: MEDICARE A AND B Discharge Planning requested by: Per Department Practice Potential Transition Plans Outpatient Therapy Advance Directives Current Advance Directive: Health Care Power of Displayer In Chart: Yes Up To Date and Valid: Yes Current Living Arrangements and Support Lives with: Spouse/significant other Type of Residence: Private Residence (House) Support: Spouse/significant other How do you manage to accomplish the following: Independent: Ambulation;Bathe/Shower;Dress;Meals/Meal Prep;Going to the bathroom;Medication Management;Transportation to appointments/community Current Services/Equipment Current Post-Acute Service(s): DME Current DME Type: Standard walker Discharge Planning Patient Goal(s): General wellness, Less pain, Increase strength, Better mobility, Ambulate without stopping, Heal wounds [place] of Choice Explained: [place] of Choice Given: No Reason Not Given: No placements necessary Discharge Planning Participant(s): Spouse/significant other;Patient Patient/Family Comments: Isaiah Hinson (Spouse) [phone] Caregiver Assessment: Caregiver is ready, willing and able to meet the patient's needs as recommended by the inter-professional team: Yes Name of Caregiver: Isaiah Hinson (Spouse) [phone] Transport at Discharge: Transportation Arrangements: Car Needs Prior to Discharge: Needs Prior to Discharge: OT/PT Evaluation Post-Acute Discharge Plan: Met with patient in her room. Patient lives with spouse, Isaiah. Isaiah will be driving patient home. Patient has her walker. [facility] Patient had a rapid response last night for hypotension. Patient in bed and just finished breakfast. Cm following. SIGNATURE: Tiana Stephens RN PATIENT NAME: Gracie Jones DATE: March 18, 2023 TIME: 8:39 AM CONTACT #: [id number] NoteHNO ID: [id number] Author: Xiomara Abraham APRN.DINKER Service: Critical Care Author Type: Nurse Practitioner Type: Progress Notes Filed: 03/17/2023 10:28 PM Note Text: [facility] Critical Care Rapid Response Reassessment Note The Critical Care Team at [facility] assessed Gracie Jones earlier today at 2051 after a Rapid Response was called for hypotension and change in mental status At the time of the Rapid Response, the patient did not require a transfer to ICU and appeared to be responding to interventions. Upon reassessment on March 17, 2023 at 10:27 PM the patient has continued to IMPROVE as evidenced by: stable blood pressure and voicing she feels good Current vital signs: BP 142/86 Pulse (!) 58 Temp 36.5 ?C (97.7 ?F) (Axillary) Resp 16 Ht 157.5 cm (5' 2 ) Wt 68 kg (150 lb) LMP 07/18/2001 (Within Years) SpO2 100% BMI 27.44 kg/m? Any changes in physical exam at time of reassessment noted below: NONE Any new diagnostic tests and/or labs reviewed for this reassessment: NONE At this time (March 17, 2023 10:27 PM) the patient does NOT require transfer to a higher level of care. Nursing was reassured they should call another Rapid Response or reach out to the Critical Care Team with any new concerns. I personally spent 5 minutes in the reassessment of this patient exclusive of any other billable procedure. Xiomara Abraham APRN.DINKER Pager: [phone] March 17, 2023 10:27 [facility] [id number] NoteHNO ID: [id number] Author: Kofi Echols II RT(R) Service: Radiology Author Type: Technologist Type: Progress Notes Filed: 03/17/2023 5:59 PM Note Text: Radiology Service Progress Note PATIENT NAME: Gracie Jones DATE OF SERVICE: March 17, 2023 TIME: 5:59 PM PATIENT IDENTITY VERIFICATION COMPLETED USING TWO (2) IDENTIFIERS: Name and Date of confirmed by patient verbally and Name and Date of confirmed by identification band. FALL SCREENING: Has the patient had 2 falls in the last year or 1 fall with injury or currently using an Ambulatory Assistive Device (Walker, Cane, Wheelchair, Crutches, etc.)? Inpatient: Screened on floor PATIENT GENDER DATA: Female. status: : No status: NO. PATIENT RELEVANT IMPLANT DATA REVIEWED: Not Applicable RADIOLOGY DEPARTMENT: General X-ray: Exam(s) Completed: Pelvis X-Ray: Pelvis General AP PERIPHERAL IV DATA: Not applicable SIGNED BY: RT Trujillo II(R) March 17, 2023 5:59 PMACentral Valley Medical [id number] NoteHNO ID: [id number] Author: Nicol Swenson APRN.GERIATRIC PSYCHIATRIST Service: ? Author Type: Nurse Environmental Planning Engineer Type: Anesthesia Procedure Notes Filed: 03/17/2023 4:14 PM Note Text: ANESTHESIOLOGY PROCEDURE NOTE PIV General Information Procedure Start Time/Medication Administration: 03/17/2023 3:20 PM Patient Location: OR Staffing GERIATRIC PSYCHIATRIST: Nicol Swenson APRN.GERIATRIC PSYCHIATRIST Performed by: GERIATRIC PSYCHIATRIST Preparation Sterility Preparation: hand hygiene performed prior to procedure Site Prep: chlorhexidine Procedure Details Indication: need for IV access Needle Size/Type: 20 gauge angiocath Orientation: Right Location: Wrist Imaging Guidance Used: No SIGNATURE: Nicol Swenson APRN.GERIATRIC PSYCHIATRIST PATIENT NAME: Gracie Jones DATE: March 17, 2023 TIME: 4:13 PM CSN: [id number] NoteHNO ID: [id number] Author: Nicol Swenson APRN.GERIATRIC PSYCHIATRIST Service: ? Author Type: Nurse Environmental Planning Engineer Type: Anesthesia Procedure Notes Filed: 03/17/2023 4:10 PM Note Text: ANESTHESIOLOGY PROCEDURE NOTE Spinal Block General Information Procedure Start Time/Medication Administration: 03/17/2023 3:13 PM Patient location during procedure: OR Timeout Performed Pre-procedure: timeout performed Consent Obtained: Yes Patient identity confirmed: arm band and patient Reason for Block: primary surgical anesthetic Staffing GERIATRIC PSYCHIATRIST: Nicol Swenson APRN.GERIATRIC PSYCHIATRIST Performed by: SUNDEEP Preparation Sterility Preparation: hand hygiene performed prior to procedure, surgical cap used, mask used, sterile drape used during line insertion, skin prep agent completely dried prior to procedure Site Prep: Duraprep Procedure Details Patient Position: sitting Monitoring: Pulse Ox and NIBP Approach: Midline Location: L4-5 Injection Technique: single-shot Needle Needle Type: pencil-tip Needle Gauge: 25 G Needle Length: 3.5 in Assessment Events: tolerated well Medications Administered bupivacaine-dextrose 0.75 % (7.5 mg/mL) injection (SENSORCAINE MPF SPINAL) - INTRASPINAL 1.7 mL - 03/17/2023 3:13:00 PM SIGNATURE: Nicol Swenson APRN.GERIATRIC PSYCHIATRIST PATIENT NAME: Gracie Jones DATE: March 17, 2023 TIME: 4:09 PM CSN: [id number] Nurse Note* Evette Miller RN - 02/23/2023 2:12 PM EDT ORTHOPAEDIC SURGERY PRE-OP PATIENT Gracie Jones is a 72 year old female PROCEDURE: right Total Hip PROCEDURE DATE: 03/17/23 CHECKLIST: Informed Consent: Yes- In [facility]: No Pre-op Skin Preparation Cloths & Instructions of Use given to patient: Reviewed with pt during this phone encounter. Nasal Swab completed for patient: PACC in the future. EDUCATION: READINESS TO LEARN COGNITIVE ABILITY: Alert and oriented MOTIVATION TO LEARN: Eager Interested FAMILY SUPPORT: Unable to assess - Family not present INSTRUCTION PROVIDED TO: Patient FACTORS AFFECTING LEARNING: None PHYSICAL LIMITATIONS AFFECTING LEARNING: None ISSUES REVIEWED: EDUCATION TOPIC/ TEACHING POINTS: -Day of Surgery (see below) -Hospital Course -Incision Care -Home PT -Home pain Medication: Refill Protocol, Side Effects -Afterhours Number Given- page ortho resident chef concierge at [phone] METHOD OF INSTRUCTION: Individual instruction, Written instruction - handouts, and Verbal instruction PRE-OPERATIVE INSTRUCTIONS REVIEWED: -Arrival time/location -NPO after midnight -Advanced Directives -ID + insurance card -Bring to hospital: Bipap, Cpap, Non-skid shoes, hearing aids -Do not bring: Excessive money, valuables, jewelry, medications (unless instructed) -Stop NSAIDS 7 days prior to surgery -Stop Aspirin and herbal supplements 10-14 days prior -Reviewed patient handout instructions for Preop Skin Preparation POST-OPERATIVE INSTRUCTIONS: -Call office if questions/concerns -Afterhour for resident chef concierge INFECTION MANAGEMENT: -Signs and symptoms of an infection -Importance of contacting the physician MEDICATION SIDE EFFECTS: -Side effects associated with the medication that warrant a call to the physician WOUND CARE: -Correct procedure to perform wound care DISCHARGE PLAN: -Patient referred to rapid recovery program and [place] [facility] was offered to Patient about Rehab facility/ SNF/ Home care. SUPPLEMENTAL MATERIAL GIVEN: Yes RISK FACTORS: CKD FOLLOW-UP PLAN: Patient instructed to call with any further issues If any questions or concerns arise before the surgery, the patient was instructed to call the office for assistance. If there are no further questions or issues, the patient will be seen the day of the procedure, prior to proceeding with surgery. Evette Miller RN Patient in for Right Total Hip Arthroplasty with Dr. Arriaga, medical consult per PACC. Cardiac clearance needed at this time:No Dental clearance needed at this time?No Patient is identified by name and birthdate: Yes Allergies reviewed: Yes Medication- prescribed and OTC reviewed and updated: Yes Latex allergy: no Does the patient have a metal allergy? No Is the patient having any pain?: Yes: Location of pain is in the right hip and groin Pain Scale: 5 on a scale from 0-10 Pain Character: dull and stabbing Duration: (How long have you had the pain?) 4 years Frequency: (How often does the pain occur?) occurs daily Pt. instructed to stop meds per PACC and will take the following meds per anesthesia guidelines perPACC Anticoagulation therapy consisting ? ASA pt has CKD, aniket hose, compression wraps, and exercise discussed with patient. Pt. has prescription drug coverage. Autologous donation discussed with patient, Pt will receive acid.. Patient lives with her and plans to go home with OP-PT at [facility]. Patient has walker No, cane Yes , shower bench No elevated toilet seat No Danna to help pt borrow awalker without wheels. Patient is 151 lbs 0 oz and is Height (cm or in): 5'2 Guide to recovery, follow your pathway to recovery after joint replacement surgery materials given to patient prior to end of session. Pt. had no other questions or concerns at this time. Evette Miller RN documented in this encounterSelect [facility]23 History of Present illness Narrative* Isaiah Arriaga MD - 12/23/2022 10:50 AM EDT SEE DICTATED NOTE Isaiah Arriaga II, MD documented in this encounterSelect Medical [facility]08-07-2023 NoteIMPRESSION: Advanced right hip osteoarthritis, slightly progressed since the prior exam. Towboat Captain: ANDREW Transcribe Date/Time: Dec 22 2022 1:20P Dictated by : SHE VERDUZCO MD This examination was interpreted and the report reviewed and electronically signed by: SHE VERDUZCO MD on Dec 22 2022 1:21PM [facility] OF [id number] History of Present illness Narrative* Evette Nascimento RT(R) - 12/22/2022 12:10 PM EDT Radiology Service Progress Note PATIENT NAME: Gracie Jones DATE OF SERVICE: December 22, 2022 TIME: 12:27 PM PATIENT IDENTITY VERIFICATION COMPLETED USING TWO (2) [...] General X-ray: Exam(s) Completed: Pelvis X-Ray: Pelvis with Hip Right PERIPHERAL IV DATA: Not applicable SIGNED BY: RT Tuhy(R) December 22, 2022 12:27 PM documented in this encounterSelect Medical [facility]06-08-2023 Evaluation note* Encounter Date Diagnosis Assessment Notes Treatment Notes Treatment Clinical Notes Oct, Medicare annual wellness visit, subsequent (ICD-10 - Z00.00) Personalized health advice was given to the beneficiary including a written plan for screenings discussed and provided. Advanced care planning reviewed and/or information given as requested. Additional counseling was provided here today in regards to risks and benefits of continuing Celebrex versus hip replacement. Agreeable to refilling Celebrex at this time. Reviewed CMP in office today. Also discussed increased blood pressure readings likely secondary to increased sodium intake substantially. Continue to monitor at home closely. Discussed normal parameters for this patient and when to follow-up sooner if needed. The above visit was performed by Sivan Baker MA under direct supervision of Lyndsay EDWARDS. Document reviewed and amended by provider signed below. Oct, Other *Progress note was completed with the assistance of voice recognition software for dictation purposes. Please excuse any grammatical errors that were not corrected during review process. [employer] Other 05-31-2023 Evaluation note* Encounter Date Diagnosis Assessment Notes Treatment Notes Treatment Clinical Notes September, Stage 3 chronic kidney disease, unspecified whether stage 3a or 3b CKD (ICD-10 - N18.30) [employer] Other 04-26-2023 Instructions* Patient Instructions* Wilmer Schmitt APRN.FREDI - 09/10/2022 2:20 PM EDT Removed sutures today without complication; pt tolerated well. No sign of infection. Post-operative state Decrease erythromycin ointment to incisions twice daily x 1 more week, then stop. Ok to use artifical tears as needed Warm compresses until edema resolves. May resume normal activities. May resume medications Follow up in [address] Busch or sooner PRN. documented in this encounterSelect Medical [facility]04-26-2023 History of Present illness Narrative* Wilmer Schmitt APRN.FREDI - 09/10/2022 2:17 PM EDT Pt. here for po visit. Pt. states vision good since surgery. Just itching. Feels lids were open moeright after surgery than they are now. A/P: 1. POW#1 s/p BUL BLEPH on 09/02/[address] Busch Doing well at this time. Exam: Anticipated postsurgical ecchymosis and edema Incisions healing well No erythema or warmth Good contour of eyelids No lagophthalmos Removed sutures today without complication; pt tolerated well. No sign of infection. Post-operative state Decrease erythromycin ointment to incisions twice daily x 1 more week, then stop. Ok to use artifical tears as needed Warm compresses until edema resolves. May resume normal activities. May resume medications Follow up in [address] Busch or sooner PRN. I have confirmed and edited as necessary the relevant ophthalmic history, ROS, and the neuro exam findings as obtained by others. I have seen and examined this patient. I have discussed the case and the management of this patient's care with the Resident/Fellow, if applicable. I also have reviewed and agree with the assessment and plan as stated above and agree withall of its relevant components. Wilmer Schmitt APRN.FREDI September 10, 2022 2:20 PM documented in this encounterSelect Medical [facility]04-03-2023 Miscellaneous Notes* Telephone Encounter - Kalina Hanks RN - 08/18/2022 11:29 AM EDT Spoke with patient. Patient has stopped Celebrex as she is currently out but is aware she will now hold as of 08/19 (2 weeks prior to and 1 week after surgery). Patient voiced understanding. Will also not take tumeric. documented in this encounterSelect Medical [facility]03-21-2023 History and physical note * Angie Schroeder APRN.FREDI - 08/05/2022 10:20 AM EDT HISTORY AND PHYSICAL EXAMINATION SERVICE DATE: 08/05/2022 SERVICE TIME: 10:08 AM PRIMARY CARE PHYSICIAN: Lyndsay Dunbar CNP REASON FOR VISIT: Gracie Jones is a 72 year old female who is scheduled for BLEPHAROPLASTY UPPER MEDICALLY at the request of for consultation. My final recommendation will be communicated back to the requesting physician by way of shared medical record or letter. The patient has the following: ACTIVE PROBLEM LIST Stage 3 Chronic Kidney Disease (Hcc) Hyperlipidemia, Unspecified Pre-Operative Examination Fuchs' Corneal Dystrophy of Both Eyes Subjective CHIEF COMPLAINT: Eyelid drooping HPI: 72 year old female who presents for PACC. Complains of droopy eyelids that started following DMEK surgery 03/2022. States is worse at night and has to lift eyelids to see. Patient denies any pain No past medical history on file. PAST SURGICAL HISTORY Procedure Laterality Date SECTION HX x2 COLONOSCOPY SCREENING KERATOPLASTY ENDOTHELIAL Right 04/14/2022 KERATOPLASTY ENDOTHELIAL Left 03/17/2022 XR CERVICAL FUSION OR No family history on file. SOCIAL HISTORY: Social History Tobacco Use Smoking status: Former Packs/day: 0.15 Years: 1.00 Pack years: 0.15 Types: Cigarettes Start date: 1972 Quit date: 1973 Years since quittin.2 Smokeless tobacco: Never Substance Use Topics Alcohol use: Yes Comment: occasionally Drug use: Not Currently Comment: denies tx for drug/alcohol abuse in the past. Prior to Admission medications as of 08/05/22 1020 Medication Sig Last Dose Taking prednisoLONE acetate (PRED FORTE, ECONOPRED PLUS) 1 % ophthalmic suspension Use 1 Drop in both eyesfour times daily. Yes prednisoLONE acetate (PRED FORTE, ECONOPRED PLUS) 1 % ophthalmic suspension Use 1 Drop in both eyesfour times daily. Yes phytonadione, vitamin K1, (MEPHYTON) 5 mg tablet Take 5 mg by mouth. Yes Cholecalciferol, Vitamin D3, 50 mcg (2,000 unit) cap Take 2,000 Units by mouth once daily. Yes celecoxib (CELEBREX) 100 mg capsule Take 100 mg by mouth twice daily. No medication comments found. ALLERGIES No Known Allergies COVID VACCINATION STATUS: Fully vaccinated REVIEW OF SYSTEMS: PAIN ASSESSMENT: General: No weight loss, malaise or fevers. Neuro: No history of TIA's, stroke, RIB SAWYER tumor, impaired sensorium, hemiplegia, paraplegia or quadraplegia. No neurological symptoms or problems., Postive for short term memory loss Respiratory: No history of current cough or dyspnea, or pneumonia in the past 6 weeks. No history of respiratory/pulmonary symptoms or problems. Cardiovascular: No history of HTN requiring medication, no history of angina, CHF, [place], cardiac surgery or stents. Denies rest pain, gangrene or revascularization/amputation for PVD. No history of cardiovascular symptoms or problems. GI: No history of GI symptoms or problems. No history of esophageal varices, recent ascites, or ETOH greater than 2 drinks per day. : No difficulty urinating, nocturia > 1 time per night or hematuria, Positive for CKD stage 3 LOW VOLTAGE TECHNICIAN: Negative for abnormal vaginal bleeding, abnormal vaginal discharge. : Denies, Patient's last menstrual period was 07/18/2001 (within years). Endocrine: No history of diabetes. Has not taken steroids within the past 30 days. No history of endocrinological symptoms or problems. Hematology: No history of bleeding or clotting disorder. Pt is not taking anti- coagulation or platelet medications. No history of hematological symptoms or problems. Oncology: No history of CA metastasis, chemo within 30 days, or radiotherapy within 90 days. Has not lost 10% of body wt in 6 months. No history of oncological symptoms or problems. Psych: No history of psychiatric symptoms or problems. Musculoskeletal: Joint pain Skin: Negative for lesions, rash and itching. Objective PHYSICAL EXAM: VITALS: BP 146/90 Pulse 68 Temp (Src) 97 (Temporal Artery) Resp 16 Ht 5' 2 (1.58m) Wt 146 lb (66.2kg) SpO2 100% LMP 07/18/2001 BMI 26.70 kg/(m^2). General: Alert and oriented, No acute distress Skin: Normal color, no rash, no lesions. Cardiovascular: Normal S1 & S2, no rubs, murmurs or gallops. No JVD. Pulse regular. Lungs: Normal breath sounds, no wheezes or crackles. Abdomen: Soft, non-tender, no rigidity., Positive bowel sounds Extremities: No deformity, no edema or tenderness, no joint swelling or clubbing. Neurological: Normal cognition and motor skills. Gait normal. No weakness or sensory deficit. Pulses: Carotid and radial pulses normal +2. Diagnostic tests reviewed for today's visit: No new labs or tests Assessment/Plan Stage 3 chronic kidney disease (HCC) Assessment: stable following with PCP METS: Climb a flight of stairs or walk up a hill (5.50 METs) Participate in strenuous sport, such as swimming, singles tennis, football, basketball, or skiing (7.50 METs) Do heavy work around the house, such as scrubbing floors, lifting or moving heavy furniture (8.00 METs) Patient denies any chest pain or undue shortness of breath with the above physical activity. Goes to gym 5 times a week for a couple hours ASA Class: 1 ANESTHESIA FINDINGS: Intubation History: No history of difficult intubation Significant Anesthesia Considerations: Slow emergence Airway Exam: General: Normal appearance Mallampati Score is CLASS III ULBT: Class I - Lower incisors can bite the upper lip above the shadia line Neck: Normal appearance and function, Distance from hyoid to mentum during neck extension is at least 3 finger breaths Mouth: Normal tongue size and Mouth opening greater than 2 finger breaths Dentition: Intact Airway History: No abnormal airway history Sleep Apnea Probability Snores loudly: No Tired, fatigued or sleepy in daytime: Yes Stops breathing or choking/gasping during sleep: No High blood pressure: No Sleep Apnea Probability Score 08/01/2022 Sleep Apnea Screen V2 28 (Sleep study not recommended) PLAN This patient is optimally prepared for surgery. CONSULTS: Patient does not require consults for optimization at this time. The Following Tests/Procedures Have Been Initiated: Labs not indicated per PACC protocol, EKG not indicated per PACC protocol Planned Anesthetic: MAC Instructions Given to Patient: Instructions located in the after visit summary. Patient given verbal and written preop instructions and voices comprehension and compliance. SIGNATURE: Angie Schroeder APRN.CNP PATIENT NAME: Gracie Jones DATE: August 05, 2022 TIME: 10:23 AM documented in this encounterSelect Medical [facility]03-21-2023 Instructions* Patient Instructions* Angie Schroeder APRN.CNP - 08/05/2022 10:11 AM EDT PATIENT PREOPERATIVE INSTRUCTIONS No ref. provider found has scheduled you for your procedure at this surgery center: [facility]: [phone] --[facility], [address], [place] [address]. Please read below carefully for your personalized instructions. Dietary Restrictions: - No solid food after midnight. - You may have 12 ounces of clear liquids (water, clear juices such as apple juice or gatorade, carbonated beverages, clear tea, black coffee, jello) until 2 hours before scheduled arrival at facility. Medications: Unless instructed differently below, stay on all of your medications until your surgery. Approved medications to take the morning of surgery with a sip of water: NONE If you start any new medications after today's visit, please contact the surgeon's office. Blood Thinning Medications: - Stop NSAIDS (Ibuprofen, Advil, Aleve, Motrin, Celebrex, Mobic, etc.) 14 days before surgery, as directed by your surgeon. - Stop Aspirin 14 days before surgery, as directed by your surgeon. - Stop Vitamin E, ALL multi-vitamins, herbals and dietary supplements 14 days before surgery. - You may take Tylenol (Acetaminophen) or any of your pain medications that do not contain aspirin or NSAIDS as needed. Important Reminders: - Candy, mints, and tobacco products are NOT permitted the morning of surgery. - Hearing aids, dentures and glasses may be worn the morning of surgery. - NO jewelry, body piercings, makeup, hairpins or contacts are to be worn the day of surgery. If you develop symptoms such as a fever, cold, or flu, or have other changes to your health within TWO DAYS of scheduled surgery or the morning of surgery, please contact the surgery center above. Personal Belongings: -Please have photo ID and insurance cards. -If you do not have a copy of advance directives on file with us, please bring a copy with you on the day of surgery. - Leave ALL valuables and money at home or with family members. For Outpatient Procedures: - YOU MUST HAVE A RESPONSIBLE DRAFTING CLERK TAKE YOU HOME. A GAS FLOW REGULATOR OR MOTION PICTURE ACTOR CANNOT BE MADE A RESPONSIBLE DRAFTING CLERK. - We recommend that a responsible person stays with you overnight to take care of you. - You cannot stay in a hotel alone after outpatient surgery. You will not be permitted to have yoursurgery, if you do not have someone to take care of you. Arrival Time for Surgery: - To obtain your arrival time for surgery, call your physician's office the day before your surgery. - If your surgery is scheduled for Thursday, call the Thursday before. Your surgeon s air brakes inspector will tell you what time to call the office. - If you have not reached the departmental air brakes inspector by 5 P.M., call [phone] after 5 P.M. the day before your surgery. Please be aware that emergency situations arise, which may delay or change your surgical time. If this happens, we will notify you as soon as possible and regret any inconvenience. If you already have an Advance Directive, please fax a copy to [phone] or email to for it to be added to your chart. If you do not have an Advance Directive, you can find the appropriate form and more information at [email or web address]. We recommend that youcomplete the Advance Directive form found on the website and bring it with you the day of your surgery. It can be witnessed and scanned into your chart that day. 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 Last filled Rx was 45 days only fills. Order updated, please advise. Patient has been identified by name and date of :Yes Provider Dr. Barahona Date 07/17/2022 Time 1615 Instructions:Patient requesting a call when RX is approved and sent to the pharmacy. Please call patient at: [phone] Requested Prescriptions Pending Prescriptions Disp Refills celecoxib (CELEBREX) 200 mg capsule 180 capsule 1 Sig: Take 1 capsule by mouth twice daily. Last OV: 01/06/2022 Next OV: Visit date not found LONI Hernandez Patient Operations Support Team (POST) Please note: Please do not re-route phone encounters back to this agent, please send to [employer]. Agent works in call center and cannot complete patient specific tasks. * Telephone Encounter - Chely Dubon - 07/15/2022 8:48 AM EST Patient has been identified by name and date of : Yes Last office visit in this department: 01/06/2022 RX INSTRUCTIONS: Patient aware RX will be sent to pharmacy. No need to notify patient. Patient phones requesting refills as follows: Requested Prescriptions Pending Prescriptions Disp Refills celecoxib (CELEBREX) 200 mg capsule 90 capsule 2 Sig: Take 1 capsule by mouth twice daily. Please review and advise. Chely Dubon documented in this encounterSelect Medical [facility]02-23-2023 Miscellaneous Notes* Telephone Encounter - Caitlyn Hay - 07/10/2022 1:00 PM EST Patient calling for refill of the following medication, prednisoLONE acetate (PRED FORTE, ECONOPREDPLUS) 1 % ophthalmic suspension. Explained the patient should still have refills available and should contact the pharmacy. Patient understands and thanked me for checking. No other questions or concerns at this time. FV: 04/16/2023 LV: 05/20/2022 Alex Frederick MD filed at 05/22/2022 8:24 AM Status: Signed Encounter Diagnosis ICD-10-CM 1. Pseudophakia Z96.1 2. 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 PCO (posterior capsular opacification), right H26.491 4. 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 Provided her with contact information. Okay to transition care to local unified communications architect in [facility] Jesus Rand can follow-up me PRN or in 1 year NEXT VISIT ORDERS: MRX OU IOP OU DFE OU THERESA OU OPTOVUE OU CONFOCAL PATIENT INTAKE COORDINATOR OU I have confirmed and edited as necessary the relevant ophthalmic history, ROS, and the neuro exam findings as obtained by others. I have seen and examined this patient. I have discussed the case and the management of this patient's care with the Resident/Fellow, if applicable. I also have reviewed and agree with the assessment and plan as stated above and agree with all of its relevant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 KETOROLAC (STEVENSON CAP): ONE DROP 4 TIMES DAILY UNTIL GONE Okay to stop wearing eye shield Okay to resume exercise/lifting No recreational water activities (swimming, hot tubs, saunas) No gardening/yardwork Third week after surgery (03/31/2022 - 04/06/2022) PREDNISOLONE (PINK CAP): ONE DROP 4 TIMES DAILY (MUST CONTINUE!) CIPROFLOXACIN (BEIGE CAP): ONE DROP 4 TIMES DAILY UNTIL GONE KETOROLAC (STEVENSON CAP): ONE DROP 4 TIMES DAILY UNTIL GONE Okay to resume gardening/yardwork No recreational water activities (swimming, hot tubs, saunas) Fourth week after surgery (04/07/2022 - 04/13/2022) PREDNISOLONE (PINK CAP): ONE DROP 4 TIMES DAILY (MUST CONTINUE!) CIPROFLOXACIN (BEIGE CAP): ONE DROP 4 TIMES DAILY UNTIL GONE KETOROLAC* (STEVENSON CAP): ONE DROP 4 TIMES DAILY UNTIL GONE No recreational water activities (swimming, hot tubs, saunas) Fifth week after surgery and beyond PREDNISOLONE (PINK CAP): FOLLOW INSTRUCTIONS GIVEN AT FOLLOW-UP APPOINTMENT REGARDING HALFWAY TAPER No recreational water activities (swimming, hot tubs, saunas) UNTIL CLEARED BY YOUR DOCTOR documented in this encounterCleveland [id number] History of Present illness Narrative* Angie Moore [facility] - 03/17/2022 12:55 PM EDT Generation of an in vitro model of Fuchs Endothelial Corneal Dystrophy (FECD) study purpose, designand informed consent was reviewed with patient, including but not limited to a review of R/B/A. Thepatient was given an opportunity to ask questions and verbalize an understanding of the study. Patient wishes to participate in the study. Consent signed Angie Moore BA on 03/17/2022 and patientwas given a copy. documented in this encounterSelect Medical [facility]10-21-2022 Nurse Note* Vini Kwon Ma - 03/07/2022 1:10 PM EDT Consulted by: Dr. Frederick Type of Surgery: DMEK OS Phaco/IOL OS Patient scheduled for surgery on: 03/17/22 Are you experiencing any eye pain?no Do you have a history of sleep apnea?no Do you Have a pacemaker or an ICD?no Do you or any of your family members have a history of malignant hyperthermia?no Are you an Insulin dependent Diabetic?no HCG needed?n/a Reviewed pre-admission/surgery instructions with the patient. Questions and concerns answered and any further concerns to be discussed by provider. Vini Kwon MA documented in this encounterSelect Medical [facility]10-21-2022 Instructions* Patient Instructions* Frida Rick APRN.CNP - 03/07/2022 12:43 PM EDT [facility] Patient Instructions for Surgery FOOD INSTRUCTIONS: NO solid food or non-clear liquids for 8 hours prior to the arrival time for your surgery. Unless you are instructed otherwise, you are allowed to drink up to 12 ounces of clear liquids (e.g. water, black tea/coffee, fruit juice without pulp, Mari Kasie, etc.) up until 2 hours prior to the arrival time for surgery. MEDICATION INSTRUCTIONS: Prior to Surgery: Do not take the following medications for 7 days prior to surgery: - any NSAID's (e.g. Motrin, Aleve, Arthrotec, Naproxen,etc) - any herbal preparations - Aspirin or aspirin containing products - Plavix Do not take any Vitamin E / multivitamins for 10-14 days before surgery You are allowed to take Tylenol if needed until the day of surgery. HOLD CELEBREX 7 DAYS PRIOR TO SURGERY MEDICATION INSTRUCTIONS: Day/Morning of Surgery: Tylenol, if needed for pain, can be taken on morning of surgery. Do not take any medications. You may resume all your remaining medications when you return home after your procedure If you have any questions or concerns regarding today's visit please do not hesitate to contact [facility] at [phone] or [phone], ext [phone]. Signature: Frida Rick Date: March 07, 2022 documented in this encounterSelect Medical [facility]10-21-2022 History and physical note * Frida Rick APRN.CNP - 03/07/2022 12:34 PM EDT HISTORY AND PHYSICAL EXAMINATION (IMPACT) SERVICE DATE: 03/07/2022 SERVICE TIME: 12:34 PM PRIMARY CARE PHYSICIAN: No primary care provider on file. CHIEF COMPLAINT/HISTORY OF PRESENT ILLNESS: Ms. Jones is a 71 year old female referred to me for preoperative evaluation. My final recommendations will be communicated back to the requesting physician/surgeon by the way of the shared medical record. Referring Surgeon: Dr. Frederick Date of Surgery: 03/17/2022 04/14/2022 Planned Surgery/Procedure: KERATOPLASTY ENDOTHELIAL DESCEMET MEMBRANE (DMEK);; PHACO/IOL/OU Indication for Planned Surgery / Procedure: Fuchs' corneal dystrophy of both eyes; Nuclear senile cataract of both eyes Refer to Assessment section for details of any comorbidities. Patient is Able to Perform the Following Physical Activity: Walk a block or two on level ground (2.75 METs) Climb a flight of stairs or walk up a hill (5.50 METs) Patient denies any chest pain or undue shortness of breath with the above physical activity. Patient's functional class is I based on self-reported physical activity. Significant Anesthesia Considerations: None. PAST MEDICAL/SURGICAL/FAMILY/SOCIAL HISTORY No past medical history on file. No past surgical history on file. No family history on file. SOCIAL HISTORY MEDICATIONS/ALLERGIES Current Outpatient Medications Medication Sig Dispense Refill celecoxib (CELEBREX) 200 mg capsule Take 200 mg by mouth twice daily. ketoconazole (NIZORAL) 2 % shampoo Ketoconazole 2 % Apply to scalp twice weekly until symptoms resolve Externally Twice a week for 60 days Active phytonadione, vitamin K1, (MEPHYTON) 5 mg tablet Take 5 mg by mouth. Cholecalciferol, Vitamin D3, 50 mcg (2,000 unit) cap Take 2,000 Units by mouth once daily. antiox #8/om3/dha/epa/lut/zeax (PRESERVISION AREDS 2, OMEGA-3, ORAL) Take by mouth. sodium chloride (MIKEY 128) 2 % ophthalmic solution 1 Drop every 4 hours as needed. sodium chloride (MIKEY 128) 5 % ophthalmic ointment once daily. PLENVU 140-9-5.2 gram powder in packet No current facility-administered medications for this visit. ALLERGIES No Known Allergies REVIEW OF SYSTEMS General: No weight loss, malaise or fevers. Neuro: No history of TIA's, stroke, RIB SAWYER tumor, impaired sensorium, hemiplegia, paraplegia or quadriplegia. No neurological symptoms or problems. Respiratory: No history of current cough or dyspnea, or pneumonia in the past 6 weeks. No history of respiratory/pulmonary symptoms or problems. Cardiovascular: No history of HTN requiring medication, no history of angina, CHF, [place], cardiac surgery or stents. Denies rest pain, gangrene or revascularization/amputation for PVD. No history of cardiovascular symptoms or problems. GI: No history of GI symptoms or problems. No history of esophageal varices, recent ascites, or ETOH greater than 2 drinks per day. : No history of UTI in past 6 weeks. No history of renal failure. Not currently on or requiring dialysis. No history of symptoms or problems. last year had elevated kidney values and liver enzymes. 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 Endocrine: No history of diabetes. Has not taken steroids within the past 30 days. No history of endocrinological symptoms or problems. Hematology: No history of bleeding or clotting disorder. No history of hematological symptoms or problems. Oncology: No history of CA metastasis, chemo within 30 days, or radiotherapy within 90 days. No history of oncological symptoms or problems. Psych: No history of psychiatric symptoms or problems. Skin: Negative for lesions, rash, and itching. PHYSICAL EXAM VITALS: BP 140/88 Pulse 64 Resp 16 Ht 5' 2 (1.58m) Wt 137 lb 14.4 oz (62.6kg) SpO2 100% BMI 25.22 kg/(m^2). General: Alert and oriented, No acute distress, Healthy appearance Skin: Normal color, no rash, no lesions. HEENT: EOM, pupils equal, round and reactive. Cardiovascular: Normal S1 & S2, no rubs, murmurs or gallops. No JVD. Pulse regular. Lungs: Normal breath sounds, no wheezes or crackles. Abdomen: Soft, non-tender, no rigidity., No masses or organomegaly. Extremities: No deformity, no edema or tenderness, no joint swelling or clubbing. Neurological: Normal cognition and motor skills. Gait normal. No weakness or sensory deficit. Pulses: Carotid and radial pulses normal +2. Pedal pulses normal +2. ASSESSMENT Ms. Jones is a 71 year old female referred to me for preoperative evaluation. Patient has the following medical comorbidities which might affect the perioperative course: - No medical conditions. Patient's RCRI (Revised Cardiac Risk Index: CAD/CHF/Stroke or TIA/SCr>2/DM on Insulin/High Risk Surgery) score is 0 and is at low risk for major adverse cardiac events in the perioperative period. Diagnostic tests reviewed for today's visit: PENDING PLAN/RECOMMENDATIONS CARDIAC: Patient is at optimal cardiac condition for scheduled surgery / procedure. PULMONARY: Patient is at optimal Pulmonary status for scheduled surgery / procedure. Patient is optimally prepared for surgery. Patient Instructions: As per patient instructions section. General Preoperative/Medication/Fasting Instructions I have discussed the above recommendations with the patient in detail, in dhiraj and lay terms, and provided a written summary of instructions as needed. We have discussed that no surgery is without risk, but that the goal of preoperative assessment is to optimize that risk, and that was clearly understood by the patient. I have given ample opportunity for the patient to ask questions, and answered all questions to their stated satisfaction. SIGNATURE: Frida Rick APRN.CNP PATIENT NAME: Gracie Jones DATE: March 07, 2022 TIME: 12:34 PM documented in this encounterSelect Medical [facility]08-25-2022 History of Present illness Narrative* Isaiah Arriaga MD - 01/09/2022 8:06 AM EDT SEE DICTATED OTE Isaiah Arriaga II, MD * Isaiah Arriaga MD - 01/06/2022 12:00 AM EDT [facility] [address] [place], [place] [address] CLINIC NOTE Department of Orthopaedics - Vishal Arriaga II, M.D. NAME: GRACIE JONES [facility] NO.: [id number] DATE OF SERVICE: 01/06/[address] Barahona. CHIEF COMPLAINT: Pain in right hip and groin area and pain on the outside of the hip. WHEN: For the last 3 to 4 years. HOW: No falls or injuries, insidious onset. WHERE: At home. PAST MEDICAL TREATMENT: NSAIDs: Celebrex. PT: In the past. Injections: Has had cortisone x4. Lubricants: None. PAST SURGICAL TREATMENT: None. REVIEW OF SYSTEMS: Cardiovascular: No history of heart disease. Respiratory: No history of lung disease. Gastrointestinal: No history of ulcers. Endocrine: No history of diabetes. Heme: No history of phlebitis, blood clots or bleeding disorders. Urinary: No history of urinary tract infections. ALLERGIES: NO METAL ALLERGIES. ALLERGIES ARE SEASONAL. The patient states that she has had kidney issues and has had liver issues in the past. She most recently stopped taking most anti-inflammatories, but was greatly helped by Celebrex and has been trying to keep the dosage low as it has helped. PE: A 71-year-old 5 feet 2 inches, 141-pound female. Has limited motion of her right hip and has some slight discomfort with internal rotation. She can get out of the chair without difficulty and walks without any significant pain, hesitation or limp. RADIOGRAPHIC DATA: X-rays of the pelvis that show both hips show severe degenerative arthritis of the right hip with lipping osteophytes that may well be sooner restrict motion. IMPRESSION: Degenerative arthritis of both hips, right greater than left. RECOMMENDATIONS: At the present time, the patient's symptom seemed to be self- limiting and not interfering with her activities of daily living. I have cautioned her about taking too much Celebrex or NSAIDs considering her kidney and liver situation. She may well need to consider total hip in the future, but currently she is not having enough pain to warrant surgery. Dictated By: Isaiah Arriaga II, M.D. Date Dictated: 01/08/2022 Date Typed: [email or web address] 01/08/2022 JOB# [id number] documented in this encounterSelect Medical [facility]08-22-2022 History of Present illness Narrative* Evette Nascimento RT(R) - 01/06/2022 1:30 PM EDT RT HIP PAIN documented in this encounterSelect Medical [facility]08-10-2022 Hospital Discharge instructions Patient Education 12/25/2021 15:37:24 Arthritis, Uhxl-in-Trmw Arthritis Arthritis means joint pain. It can also mean joint disease. A joint is a place where bones come together. There are more than 100 types of arthritis. What are the causes? This condition may be caused by: Wear and tear of a joint. This is the most common cause. A lot of acid in the blood, which leads to pain in the joint (gout). Pain and swelling (inflammation) in a joint. Infection of a joint. Injuries in the joint. A reaction to medicines (allergy). In some cases, the cause may not be known. What are the signs or symptoms? Symptoms of this condition include: Redness at a joint. Swelling at a joint. Stiffness at a joint. Warmth coming from the joint. A fever. A feeling of being sick. How is this treated? This condition may be treated with: Treating the cause, if it is known. Rest. Raising (elevating) the joint. Putting cold or hot packs on the joint. Medicines to treat symptoms and reduce pain and swelling. Shots of medicines (cortisone) into the joint. You may also be told to make changes in your life, such as doing exercises and losing weight. Follow these instructions at home: Medicines Take ikfc-dam-dtnxqny and prescription medicines only as told by your doctor. Do not take aspirin for pain if your doctor says that you may have gout. Activity Rest your joint if your doctor tells you to. Avoid activities that make the pain worse. Exercise your joint regularly as told by your doctor. Try doing exercises like: ?Swimming. ?Water aerobics. ?Biking. ?Walking. Managing pain, stiffness, and swelling If told, put ice on the affected area. ?Put ice in a plastic bag. ?Place a towel between your skin and the bag. ?Leave the ice on for 20 minutes, 2 3 times per day. If your joint is swollen, raise (elevate) it above the level of your heart if told by your doctor. If your joint feels stiff in the morning, try taking a warm shower. If told, put heat on the affected area. Do this as often as told by your doctor. Use the heat source that your doctor recommends, such as a moist heat pack or a heating pad. If you have diabetes, do not apply heat without asking your doctor. To apply heat: ?Place a towel between your skin and the heat source. ?Leave the heat on for 20 30 minutes. ?Remove the heat if your skin turns bright red. This is very important if you are unable to feel pain, heat, or cold. You may have a greater risk of getting burned. General instructions Do not use any products that contain nicotine or tobacco, such as cigarettes, e- cigarettes, and chewing tobacco. If you need help quitting, ask your doctor. Keep all follow-up visits as told by your doctor. This is important. Contact a doctor if: The pain gets worse. You have a fever. Get help right away if: You have very bad pain in your joint. You have swelling in your joint. Your joint is red. Many joints become painful and swollen. You have very bad back pain. Your leg is very weak. You cannot control your pee (urine) or poop (stool). Summary Arthritis means joint pain. It can also mean joint disease. A joint is a place where bones come together. The most common cause of this condition is wear and tear of a joint. Symptoms of this condition include redness, swelling, or stiffness of the joint. This condition is treated with rest, raising the joint, medicines, and putting cold or hot packs onthe joint. Follow your doctor's instructions about medicines, activity, exercises, and other home care treatments. This information is not intended to replace advice given to you by your health care provider. Make sure you discuss any questions you have with your health care provider. Document Released: 07/29/2010 Document Revised: 04/11/2019 Document Reviewed: 04/11/2019 [employer] Patient Education 2020 [employer]. Follow Up Care 12/23/2021 11:47:33 With:Magnus ROBERTS, IVAN Ventura, PED Address: [address] [place] [address], [facility] [place] [address] When:1 month only if needed Comments:40 mins [facility] 07-19-2022 Evaluation note* Encounter Date Diagnosis Assessment Notes Treatment Notes Treatment Clinical Notes Nov, Insect bite (nonvenomous) of other part of head, subsequent encounter (ICD-10 - S00.86XD) Discussed screening, symptoms, and treatment of Lyme disease. She is asymptomatic today however does have concerns due to multiple bites every year.I am agreeable to printing out orders for her to take to [facility]. We can call with the results. Of note, I did discuss with her possibly trying doxycycline prophylactically to prevent worsening Lyme disease if at all present. She declines and questions how she would ever treat Lyme disease if she is having 1 bite a week.We will defer at this time and I do again reiterate the symptoms that she needs to be mindful of including erythema migrans. Nov, Acute seborrheic dermatitis (ICD-10 - L21.9) Discussed utilization of shampoo twice weekly with normal shampoos to continue. Discussed aggravating factors and decreasing heat of shower. Discussed utilizing shampoo now and as needed in the future. Discussed seborrheic dermatitis and when to follow-up in office if symptoms change or worsen. Declines secondary medication to the back for treatment of dermatitis. I encouraged her to utilize topical steroids if needed. Nov, Other Will call francesco mitchell with CMP and Lyme disease lab results. Follow-up as needed. *Progress note was completed with the assistance of voice recognition software for dictation purposes. Please excuse any grammatical errors that were not corrected during review process. [employer] Other 07-12-2022 Evaluation note* Encounter Date Diagnosis Assessment Notes Treatment Notes Treatment Clinical Notes Nov, Stage 3 chronic kidney disease, unspecified whether stage 3a or 3b CKD (ICD-10 - N18.30) [employer] Other 06-21-2022 History of Present illness Narrative* Niall Rodriguez MD - 11/05/2021 2:28 PM EDT This document has been created with the use of voice recognition technology. It may contain inaccuracies: misspellings, inaccurate syntax or word sense that escaped review. The patient is seen at the request of Lyndsay Dunbar CNP for evaluation and an opinion regarding treatment. A copy of this report will remain in the shared medical record CHIEF COMPLAINT: Gracie Jones is a 71 year old Right hand dominant female who presents today for newevaluation of tender history of right shoulder pain. HISTORY OF PRESENT ILLNESS: PAIN EVALUATION 11/05/2021 1316 Pain Level: 5 Pain Location: Shoulder-Right Description: Aching;Dull Duration Amount of Time: 10 Duration Units: Years Frequency: Intermittent HISTORY: Gracie Jones has complains of chronic right shoulder pain. She states that she was evaluated elsewhere 5 years ago and was to undergo surgical repair of a torn muscle . She did not proceed with the surgery secondary to cervical spine surgery. She subsequently followed up and was told thatsurgery was no longer possible secondary to atrophy. She did have another opinion afterwards with similar conclusion by her report. She is continued to complain of pain. She thinks her motion is better as she has been working out in a gym. She is reluctant to take NSAID secondary to chronic kidney disease. She has had a cortisone injection in the past but had a reaction to where she felt pressurein her chest. She has no neurologic complaints. Radicular symptoms she was experiencing prior to her cervical spine surgery have resolved. No other musculoskeletal complaints ROS: REVIEW OF SYMPTOMS: Constitutional: patient denies any recent fever or significant change in weight Gastrointestinal: patient denies any current abdominal discomfort Musculoskeletal: as noted in the HPI Neurologic: as noted in the HPI SOCIAL HISTORY: Tobacco Use: Not on file ALLERGIES: ALLERGIES No Known Allergies PAST MEDICAL HISTORY: History reviewed. No pertinent past medical history. SOCIAL HISTORY: Tobacco Use: Not on file EXAMINATION: GENERAL: Appears healthy, well-nourished, no deformities. ORIENTATION: Alert and oriented to person place and time HABITUS: Normal GAIT: Normal, the patient did not have trouble getting onto the exam table. right shoulder exam: skin intact Difficult to ascertain atrophy no erythema, no ecchymosis, no arm swelling no irritability with PROM active equals passive ROM forward elevation 170 external rotation 70/symmetric Has some scapulothoracic assistance at 90 degrees Weakness with isometric contraction of the RC, when tested against resistance supraspinatus and infraspinatus Some pain with impingement maneuvers intact sensation to light touch distally good radial pulse no pain with neck ROM . RADIOGRAPHS: XR Obtained today and personally reviewed by myself demonstrating decreased acromiohumeral distance consistent with rotator cuff arthropathy IMPRESSION: Encounter Diagnosis ICD-10-CM 1. Rotator cuff arthropathy, right M12.811 Procedures Plan: Patient with right rotator cuff arthropathy. Discussed with the patient that the rotator cuffis not repairable. Discussed treatment algorithm. Given her reaction to corticosteroid I am reluctant to inject her shoulder. She has chronic kidney disease and I discussed implications regarding NSAIDs. From a surgical standpoint I discussed reverse total shoulder arthroplasty. I went over the procedure risks and expectations. She has excellent motion now. Discussed primary indication pain. Is for pain improvement. She would not consider any surgical treatment at the present time secondary to upcoming corneal surgery. She also has been evaluated for right hip osteoarthritis. She is going to let me know if she wishes to consider any surgical treatment otherwise we will see her back in 6 months Follow-up in 6 months Niall Rodriguez MD documented in this encounterSelect Medical [facility]06-21-2022 History of Present illness Narrative* RT Thuy(R) - 11/05/2021 1:12 PM EDT Radiology Service Progress Note PATIENT NAME: Gracie Jones DATE OF SERVICE: November 05, 2021 TIME: 1:12 PM PATIENT IDENTITY VERIFICATION COMPLETED USING TWO (2) [...] Applicable RADIOLOGY DEPARTMENT: General X-ray: Exam(s) Completed: Upper Extremity X- Ray(s): Shoulder, AP / TRUE AP / AXILLARY right PERIPHERAL IV DATA: Not applicable SIGNED BY: RT Thuy(R) November 05, 2021 1:12 PM documented in this encounterSelect Medical [facility]06-16-2022 Miscellaneous Notes* Addendum Note - Alex Frederick MD - 10/31/2021 5:16 PM EDT Addended by: ALEX FREDERICK on: 10/31/2021 05:16 PM Modules accepted: Orders documented in this encounterSelect Medical [facility] Hospital06-16-2022 Instructions* Patient Instructions* Alex Frederick MD - 10/31/2021 5:10 PM EDT INSTRUCTIONS FOR SCHEDULING SURGERY: CONTACT DR. FREDERICK'S DECONTAMINATOR: JOSHUA QUILES AT [phone] (9AM-5PM, THURSDAY-THURSDAY) - IF YOU RECEIVE JOSHUA'S VOICEMAIL, PLEASE LEAVE A MESSAGE AND HE WILL RETURN YOUR CALL - JOSHUA WILL INFORM YOU IF ANY ADDITIONAL PREOPERATIVE TESTING IS REQUIRED, INCLUDING A PRE-OPERATIVE PHYSICAL (REQUIRED FOR ALL PROCEDURES IN WHICH ANESTHESIA IS INVOLVED) AND A COVID-19 TEST (REQUIRED FOR ALL PROCEDURES) - ONCE A SURGICAL DATE(s) HAS BEEN SET, YOU WILL RECEIVE A PHONE CALL ON THE BUSINESS DAY PRIOR TO SURGERY TO GIVE YOU YOUR EXACT ARRIVAL TIME - ARRIVAL TIMES ARE TYPICALLY 1 HOUR BEFORE YOUR PROCEDURE IS SCHEDULED TO TAKE PLACE, ALTHOUGH THIS MAY VARY BASED ON THE TYPE OF PROCEDURE YOU ARE HAVING DONE AND EXTRINSIC FACTORS WHICH MAY AFFECTTHE SCHEDULE ON THE DAY OF SURGERY - IF YOU ARE RECEIVING ANESTHESIA (WHICH INCLUDES MOST PROCEDURES EXCEPT FOR THOSE WHICH ARE LOCAL ANESTHESIA ONLY), YOU WILL NEED TO FAST FOR 8 HOURS BEFORE YOUR SCHEDULED SURGERY TIME. SPECIFIC DETAILS REGARDING DAY OF SURGERY INSTRUCTIONS INCLUDING WHETHER YOU NEED TO STOP ANY EXISTING MEDICATIONS WILL BE EXPLAINED AT YOUR PRE-OPERATIVE PHYSICAL. - YOU HAVE ANY ADDITIONAL CONCERNS OR QUESTIONS, CALL DR. FREDERICK'S OFFICE AT [phone] (PRESS 0 TO BYPASS THE AUTOMATED GREETING AND BE TRANSFERRED TO AN INTERNET MARKETER) documented in this encounterSelect Medical [facility] Hospital06-16-2022 History of Present illness Narrative* Alex Frederick MD - 10/31/2021 4:56 PM EDT Encounter Diagnosis ICD-10-CM 1. Fuchs' corneal dystrophy of both eyes H18.513 CORNEAL TOPOGRAPHY ATLAS OU (BOTH EYES) PACHYMETRY OU (BOTH EYES) 2. Nuclear senile cataract of both eyes H25.13 symptomatic fuchs OU with guttata OS>OD difficulty driving due to reading signs/glare Gracie Jones states that the decline in vision impedes the ability to drive as well as other activities of daily living. Gracie Jones states that the decline in vision impedes the ability to read as well as other activities of daily living. Gracie Jones has confirmed that he is no longer able to function adequately on a day-to-day basis because of his current visual condition. The symptomatic decrease in vision for this patient is due to both the presence of corneal pathology and cataract. Cataract surgery is medically necessary to provide maximal mandaen of vision andfacilitate completion of the corneal transplant The risks, benefits, alternatives, personnel and complications of the proposed surgery were discussed with Gracie Jones in detail. Gracie Jones appeared to understand and asked that I proceed with plans for surgery. 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 I have seen and examined this patient. I have discussed the case and the management of this patient's care with the Resident/Fellow, if applicable. I also have reviewed and agree with the assessment and plan as stated above and agree with all of its relevant components. Alex Frederick MD documented in this encounter[facility]* Encounter Date Diagnosis Assessment Notes Treatment Notes Treatment Clinical Notes Oct, Encounter for medication counseling (ICD-10 - Z71.89) Discussed creatinine clearance, options for treatment of osteoarthritis pain, and the recommendations in regards to Celebrex. Meloxicam may be a better option for her initially. If Celebrex is still recommended by Ortho, I would suggest lowest effective dose. We can always continue to redraw and reevaluate the creatinine and GFR moving forward. Discussed risk and benefit of utilizing medication today. I do feel there is something except for quality of life and pain control from a patient perspective. I have spent 8 minutes with this patient and over 50% of the visit was counseling done by myself, Lyndsay EDWARDS. *Progress note was completed with the assistance of voice recognition software for dictation purposes. Please excuse any grammatical errors that were not corrected during review process. [employer] Other 06-10-2022 History of Present illness Narrative* Gregor Barahona DO - 10/25/2021 2:15 PM EDT SERVICE DATE: October 25, 2021 PCP: No primary care provider on file. Patient was self-referred. Subjective Patient ID: Gracie is a 71 year old female. Here today with complaints of right hip pain. She did describes pain in her posterior gluteal regions down the lateral aspect of her right knee and also groin pain on the right. She states this does hinder her from everyday activities and also gives her pain at night. She has had injections in the past and has had a bad reaction to the injections with chest pain. She cannot really take NSAIDs due to kidney failure. Chief Complaint: Patient presents with: Right Hip - New, Pain PAIN EVALUATION 10/25/2021 1357 Pain Level: 5 Pain Location: Hip-Right Description: Aching;Sore;Dull;Sharp Duration Amount of Time: 5 Duration Units: Years Frequency: Intermittent Intervention/Comfort measure: Reposition;Relaxation;Medication HPI TREATMENTS PRIOR TO INITIAL CONSULT: Right Corticosteroid Injection(s) Review of Systems There is no problem list on file for this patient. No past medical history on file. No past surgical history on file. No family history on file. Social History Tobacco Use Smoking status: Not on file Smokeless tobacco: Not on file Substance Use Topics Alcohol use: Not on file Drug use: Not on file ALLERGIES Not on File MEDICATIONS: celecoxib (CELEBREX) 200 mg capsule Take 1 capsule by mouth twice daily. Allergies, medications, past surgical history, family history and past medical history were reviewed per this encounter. Objective Ortho Exam alert pleasant female oriented x3. She has mild restricted range of motion of her right hip with a mildly positive February Jose A's. She has 20 degrees of internal rotation 40 degrees ofexternal rotation at at 90 degrees of flexion. She has mild restricted abduction and abduction. Neurovascular is otherwise intact into her right lower extremity with a full range of motion of her knee and ankle. X-rays of her pelvis and right hip reveal a cam lesion from YENIFER and advanced arthritis of her righthip. Assessment/Plan ASSESSMENT Diagnosis (M16.11) Primary osteoarthritis of right hip (primary encounter diagnosis) Plan: CONSULT TO ORTHOPAEDICS (M54.31) Right sciatic nerve pain Office Visit on 10/25/21 CONSULT TO ORTHOPAEDICS PLAN In lieu of her problems with injections I recommend she try Celebrex if okayed by her kidney physician and also will obtain a consult for hip arthroplasty. FOLLOW-UP: Return Arthroplasty surgeon. I reviewed the information obtained and documented by the me. I examined the patient and evaluated all available films and pertinent documents. We discussed the case and I agree with the plans as outlined in this note. SIGNATURE: Gregor Barahona DO PATIENT NAME: Gracie Jones DATE: October 25, 2021 TIME: 2:32 PM documented in this encounterSelect [facility]06-[facility]22 History of Present illness Narrative* RT Fei(R) - 10/25/2021 2:11 PM EDT Radiology Service Progress Note PATIENT NAME: Gracie Jones DATE OF SERVICE: October 25, 2021 TIME: 2:11 PM PATIENT IDENTITY VERIFICATION COMPLETED USING TWO (2) IDENTIFIERS: Name and Date of confirmedby patient verbally. FALL SCREENING: Has the patient had 2 falls in the last year or 1 fall with injury or currently using an Ambulatory Assistive Device (Walker, Cane, Wheelchair, Crutches, etc.)? No PATIENT GENDER DATA: Female. status: : No status: N/A PATIENT RELEVANT IMPLANT DATA REVIEWED: Not Applicable RADIOLOGY DEPARTMENT: General X-ray: Exam(s) Completed: Pelvis X-Ray: Pelvis with Hip Right PERIPHERAL IV DATA: Not applicable SIGNED BY: RT Fei(R) October 25, 2021 2:11 PM documented in this encounterSelect [facility]-02-[facility] Evaluation note* Encounter Date Diagnosis Assessment Notes Treatment Notes Treatment Clinical Notes Oct, Screening for colon cancer (ICD-10 - Z12.11) [employer] Other 05-16-2022 Evaluation note* Encounter Date Diagnosis Assessment Notes Treatment Notes Treatment Clinical Notes September, Screening mammogram for breast cancer (ICD-10 - Z12.31) Discussed screening for breast cancer but the decreased need for Pap/pelvic exams with age. September, Right hip pain (ICD-10 - M25.551) Patient reports chronic right hip pain and would like referred to a new child care specialist other than Yaron Purcell and [facility]. Through much deliberation she is decided on a referral to [facility] orthopedics. Declines work-up, physical therapy or medication at this time. September, Chronic neck pain (ICD-10 - M54.2) Has seen neurosurgery. Did discuss her history at length. Would like to be referred to a new neurosurgeon. Through much deliberation she is agreed to a referral to [facility] for neurosurgery consult. Last known [place] [facility] [place], Right rotator cuff tear (ICD-10 - M75.101) Patient reports right shoulder pain and never went for follow-up regarding the need for rotator cuff tear. She would like referred to a new child care specialist other than Yaron Purcell and [facility]. Through much deliberation she is decided on a referral to [facility] orthopedics. Declines work-up, physical therapy or medication at this time. September, Dizziness (ICD-10 - R42) Patient is a poor historian in regards to dizziness. At this point I am a bit Unsure of what to make of this. Her dizziness episodes are mild, intermittent, brief and apparently on triggered. We will continue to monitor closely. September, Insect bite (nonvenomous) of scalp, initial encounter (ICD-10 - S00.06XA) I strongly encourage 1 dose of doxycycline prophylactically post tick bite to reduce risk of Lyme disease however patient adamantly declines today as she does not want to take an antibiotic . I strongly urged her to keep an eye on the location and report to me immediately if symptoms change or worsen. September, Hyperlipidemia, unspecified hyperlipidemia type (ICD-10 - E78.5) Patient does need lipid panel drawn to assess for current lipid levels with the presence of hyperlipidemia. September, Stage 3 chronic kidney disease, unspecified whether stage 3a or 3b CKD (ICD-10 - N18.30) Patient does need CMP drawn for further evaluation of current renal status. September, Screening for colon cancer (ICD-10 - Z12.11) Discussed pros and cons of colonoscopy for colon cancer screening. Through much deliberation, patient is agreeable to undergoing colonoscopy. Referral is being sent to [facility] gastroenterology by office staff. September, Other We have discuss ed the necessity of following up with PCP regularly as well as specialists, as needed. Discussed F/U with dentistry and optometry at least yearly. Discussed all preventative measures/ cancer screenings as applicable to this patient. Emphasized the importance of a reduced fat, low carb diet to promote heart health and controlled blood sugars. Reviewed social history and ensured patient is safe within the home today. Pt denies any abuse of [alcohol, nicotine, caffeine or recreational drugs]. I have ensured patient is of stable mental and physical health today. We have discussed appropriate F/U schedule as well as blood work and vaccinations that apply. All questions answered and patient is sent home pleased, without concerns. [employer] Other 04-01-2022 Miscellaneous Notes* Telephone Encounter - Dasia Clark MA - 11/05/2021 12:39 PM EDT Below message reviewed with Dr. Barahona. Dasia Clark MA * Telephone Encounter - Gabriela Kim RN - 11/04/2021 1:32 PM EDT Pt calls Seen 6 Spoke with her pcp and was advised to take lower dose of below Pt does not have a kidney dr celecoxib (CELEBREX) 200 mg capsule 60 capsule 2 10/25/2021 01/23/2022 Sig: Take 1 capsule by mouth twice daily. Patient not taking: Reported on 10/31/2021 Sent to pharmacy as: celecoxib (CELEBREX) 200 mg capsule Class: Normal Route: ORAL Order: [id number] E-Prescribing Status: Receipt confirmed by pharmacy (10/25/2021 2:29 PM EDT) documented in this encounterSelect [facility]03-22-2022 Miscellaneous Notes* Telephone Encounter - Jose Alberto Washington - 08/06/2021 10:16 AM EDT Received outside records from [facility], gave to Dr. Frederick for review. documented in this encounterSelect [facility] HospitalEvaluation + Plan note Future Appointments Appointment Date:01/22/2022 02:20:00 PM Scheduled Provider:Carl Agudelo DO Location:[facility] Appointment Type:FM Procedure [facility] Evaluation note* Diagnosis Primary osteoarthritis of right hip- Primary Primary localized osteoarthrosis, pelvic region and thigh Right sciatic nerve pain documented in this encounter [facility]* Diagnosis Fuchs' corneal dystrophy of both eyes- Primary Nuclear senile cataract of both eyes documented in this encounter [facility]* Diagnosis Rotator cuff arthropathy, right- Primary Fuchs' corneal dystrophy of both eyes Nuclear senile cataract of both eyes Fuchs' corneal dystrophy of both eyes Nuclear senile cataract of both eyes documented in this encounter [facility] HospitalEvaluation noteNo [employer] Other Evaluation note* Diagnosis Primary osteoarthritis of right hip- Primary Primary localized osteoarthrosis, pelvic region and thigh Fuchs' corneal dystrophy of both eyes Nuclear senile cataract of both eyes Fuchs' corneal dystrophy of both eyes Nuclear senile cataract of both eyes documented in this encounter [facility]* Diagnosis Pre-operative examination Preoperative examination, unspecified Fuchs' corneal dystrophy of both eyes Nuclear senile cataract of both eyes Fuchs' corneal dystrophy of both eyes Nuclear senile cataract of both eyes documented in this encounter [facility]* Diagnosis Nuclear sclerotic cataract of both eyes- Primary Senile nuclear sclerosis Fuchs' corneal dystrophy of both eyes Nuclear senile cataract of both eyes Fuchs' corneal dystrophy of both eyes Nuclear senile cataract of both eyes documented in this encounter [facility]* Diagnosis Fuchs' corneal dystrophy of both eyes- Primary Fuchs' corneal dystrophy of both eyes Nuclear senile cataract of both eyes Fuchs' corneal dystrophy of both eyes Nuclear senile cataract of both eyes documented in this encounter [facility]* Diagnosis Fuchs' corneal dystrophy of both eyes- Primary Status post corneal transplant Cornea replaced by transplant Fuchs' corneal dystrophy of both eyes Nuclear senile cataract of both eyes documented [facility] this encounter [facility]* Diagnosis Status post corneal transplant- Primary Cornea replaced by transplant Pseudophakia Lens replaced by other means documented in this encounter [facility]* Diagnosis Pseudophakia- Primary Lens replaced by other means Status post corneal transplant Cornea replaced by transplant PCO (posterior capsular opacification), right After-cataract, unspecified Ptosis of both eyelids Unspecified ptosis of eyelid documented in this encounter [facility]* Diagnosis 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 Myogenic ptosis Dermatochalasis of both upper eyelids documented in this encounter [facility]* Diagnosis Memory change- Primary Memory loss Fuchs' corneal dystrophy of both eyes Stage 3 chronic kidney disease, unspecified whether stage 3a or 3b CKD (HCC) Elevated blood-pressure reading without diagnosis of hypertension Elevated blood pressure reading without diagnosis of hypertension Myogenic ptosis of eyelid of both eyes Myogenic ptosis Dermatochalasis of both upper eyelids documented in this encounter [facility]* Diagnosis Primary osteoarthritis of right hip- Primary Primary localized osteoarthrosis, pelvic region and thigh Myogenic ptosis of eyelid of both eyes Myogenic ptosis Dermatochalasis of both upper eyelids documented in this encounter [facility]* Diagnosis Post-operative state- Primary Other postprocedural status documented in this encounter [facility] HospitalEvaluation noteNo assessment information availableLancaster [facility] Work Phone: Evaluation note* Diagnosis Primary osteoarthritis of right hip- Primary Primary localized osteoarthrosis, pelvic region and thigh MRSA (methicillin resistant Staphylococcus aureus) Methicillin resistant Staphylococcus aureus in conditions classified elsewhere and of unspecified site Pre-op testing Preoperative examination, unspecified Frequent urination Urinary frequency Abnormal finding of blood chemistry, unspecified Primary osteoarthritis of right hip Primary localized osteoarthrosis, pelvic region and thigh documented in this encounter [facility]* Diagnosis Primary osteoarthritis of right hip- Primary Primary localized osteoarthrosis, pelvic region and thigh Primary osteoarthritis of right hip Primary localized osteoarthrosis, pelvic region and thigh documented in this encounter [facility]* Diagnosis Aftercare following right hip joint replacement surgery- Primary Postoperative lightheadedness documented in this encounter [facility]* Diagnosis Aftercare following right hip joint replacement surgery- Primary documented in this [facility]* Diagnosis Trochanteric bursitis of right hip- Primary Enthesopathy of hip region Aftercare following right hip joint replacement surgery Aftercare following right hip joint replacement surgery documented in this encounter [facility]* Author Lyndsay RaphaelWVUMedicine [facility] Authored October 29, 2023 3:13 pm *Progress note was completed with the assistance of voice recognition software for dictation purposes. Please excuse any grammatical errors that were not corrected during review process. [facility] Work Phone: Evaluation note* Diagnosis Primary osteoarthritis of right hip Primary localized osteoarthrosis, pelvic region and thigh Pre-op evaluation- Primary Preoperative examination, unspecified Stage 3 chronic kidney disease, unspecified whether stage 3a or 3b CKD (HCC) Pre-op evaluation- Primary Preoperative examination, unspecified Pain, unspecified Stage 3a chronic kidney disease (HCC) Elevated BP without diagnosis of hypertension PONV (postoperative nausea and vomiting) Nausea with vomiting [facility] Pain Generalized pain documented in this encounter [facility]* Diagnosis Pain Generalized pain documented in this encounter [facility]* Diagnosis Dizziness- Primary Dizziness and giddiness Cervical paraspinal muscle spasm Spasm of muscle [facility]* Diagnosis Onset Date Resolution Status Acute reaction to situational stress acute History of right hip replacement acute Oral mucosal lesion acute [facility] Work Phone: Evaluation note* Diagnosis Cervical paraspinal muscle spasm- Primary Spasm of muscle Dizziness Dizziness and giddiness documented [facility]* Diagnosis Dizziness- Primary Dizziness and giddiness Cervical paraspinal muscle spasm Spasm of muscle [facility]* Diagnosis Dizziness- Primary Dizziness and giddiness Cervical paraspinal muscle spasm Spasm of muscle Dizziness- Primary Dizziness and giddiness Cervical paraspinal muscle spasm Spasm of muscle [facility]* Diagnosis Dizziness- Primary Dizziness and giddiness Cervical paraspinal muscle spasm Spasm of muscle Dizziness- Primary Dizziness and giddiness Cervical paraspinal muscle spasm Spasm of muscle [facility]* Diagnosis Dizziness- Primary Dizziness and giddiness Cervical paraspinal muscle spasm Spasm of muscle Dizziness- Primary Dizziness and giddiness Cervical paraspinal muscle spasm Spasm of muscle [facility]* Diagnosis Dizziness- Primary Dizziness and giddiness Cervical paraspinal muscle spasm Spasm of muscle Dizziness- Primary Dizziness and giddiness Cervical paraspinal muscle spasm Spasm of muscle [facility]* Diagnosis Pre-op evaluation- Primary Preoperative examination, unspecified Stage 3 chronic kidney disease, unspecified whether stage 3a or 3b CKD (HCC) Pre-op evaluation- Primary Preoperative examination, unspecified Pain, unspecified Stage 3a chronic kidney disease (HCC) Elevated BP without diagnosis of hypertension PONV (postoperative nausea and vomiting) Nausea with vomiting Trochanteric bursitis of right hip- Primary Enthesopathy of hip region Piriformis syndrome, right Aftercare following right hip joint replacement surgery Aftercare following right hip joint replacement surgery documented [facility] this [facility]* Diagnosis Dizziness- Primary Dizziness and giddiness Cervical paraspinal muscle spasm Spasm of muscle Onychomycosis- Primary Dermatophytosis of nail Pain in both feet Corns and callosities documented in this encounter [facility]* Diagnosis Dizziness- Primary Dizziness and giddiness Cervical paraspinal muscle spasm Spasm of muscle Onychomycosis Dermatophytosis of nail documented in this encounter [facility]* Diagnosis Dizziness- Primary Dizziness and giddiness Cervical paraspinal muscle spasm Spasm of muscle Onychomycosis- Primary Dermatophytosis of nail Pain in both feet Corns and callosities [facility] N[facility] - Reported* Type Description Date Medical History 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 Medical History Chronic kidney disease (CKD) Medical History HLD (hyperlipidemia) Medical History GERD (gastroesophageal reflux di sease) Medical History Arthritis Medical History Sensorineural hearing loss, bila teral Medical History Degenerative disc disease, lumba r Medical History Degenerative disc disease, thora cic Medical History 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 Medical History Chronic kidney disease (CKD) Medical History HLD (hyperlipidemia) Medical History GERD (gastroesophageal reflux di sease) Medical History Arthritis Medical History Sensorineural hearing loss, bila teral Medical History Degenerative disc disease, lumba r Medical History Degenerative disc disease, thora cic Medical History 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 Surgical History Right hip replacement 3 Hospitalization History See surgical hx Application Security Other Hospital course Narrative No data available for this section [facility] Hospital Discharge instructionsAmbulatory Orders* Referral to Neurology Location: None [facility] Work Phone: Progress note No data available for this section [facility] Reason for referral (narrative)* Diagnostic Procedure Only (Routine) - Closed Specialty Diagnoses / Procedures Referred By Contac t Referred To Contact XR IMAGING Diagnoses Primary osteoarthritis of right hip Procedures XR HIP GENERAL 3V PELV/AP/LAT RIGHT RADEX HIP UNILATERAL WITH PELVIS 2-3 VIEWS Isaiha Arriaga MD [address] [place] [address] Xr Imaging Referral ID Status Reason Start Date Expiration Date V isits Requested Visits Authorized [id number] Closed Auto-Generate d Referral 01/04/2022 02/03/2023 1 1 [facility] for referral (narrative)* - Authorized Specialty Diagnoses / Procedures Referred By Contac t Referred To Contact Physical Therapy Diagnoses Primary osteoarthritis of right hip Procedures CONSULT TO PHYSICAL THERAPY Isaiah Arriaga MD [address] [place] [address] Referral ID Status Reason Start Date Expiration Date V isits Requested Visits Authorized [id number] Authorized 12/23/2022 03/23/2023 99 99 * Diagnostic Procedure Only (Routine) - Closed Specialty Diagnoses / Procedures Referred By Contac t Referred To Contact XR IMAGING Diagnoses Primary osteoarthritis of right hip Procedures XR HIP GENERAL 3V PELV/AP/LAT RIGHT RADEX HIP UNILATERAL WITH PELVIS 2-3 VIEWS Isaiah Arriaga MD [address] [place] [address] Xr Imaging Referral ID Status Reason Start Date Expiration Date V isits Requested Visits Authorized [id number] Closed Auto-Generate d Referral 12/16/2022 01/15/2024 1 1 [facility] for referral (narrative)* Diagnostic Procedure Only (Routine) - Closed Specialty Diagnoses / Procedures Referred By Michelleac t Referred To Contact XR IMAGING Diagnoses Aftercare following right hip joint replacement surgery Procedures XR PELVIS 1V AP RADIOLOGIC EXAMINATION PELVIS 1/2 VIEWS Olive Amaya PA-C [address] [place] [address] [place] [id number] Referral ID Status Reason Start Date Expiration Date V isits Requested Visits Authorized [id number] Closed Auto-Generate d Referral 04/06/2023 05/05/2024 1 1 [facility] for referral (narrative)* Diagnostic Procedure Only (Routine) - Closed Specialty Diagnoses / Procedures Referred By Michelleac t Referred To Contact XR IMAGING Diagnoses Aftercare following right hip joint replacement surgery Procedures XR PELVIS 1V AP RADIOLOGIC EXAMINATION PELVIS 1/2 VIEWS Olive Amaya PA-C [address] [place] [address] [place] [address] Referral ID Status Reason Start Date Expiration Date V isits Requested Visits Authorized [id number] Closed Auto-Generate d Referral 09/22/2023 10/21/2024 1 1 [facility] for referral (narrative)* Diagnostic Procedure Only (Routine) - Closed Specialty Diagnoses / Procedures Referred By Contac t Referred To Contact XR IMAGING Diagnoses Aftercare following right hip joint replacement surgery Procedures XR PELVIS 1V AP RADIOLOGIC EXAMINATION PELVIS 1/2 VIEWS Olive Amaya PA-C [address] [place] [address] [place] [address] Referral ID Status Reason Start Date Expiration Date V isits Requested Visits Authorized [id number] Closed Auto-Generate d Referral 09/22/2023 10/21/2024 1 1 [facility] for referral (narrative)* Diagnostic Procedure Only (Routine) - Closed Specialty Diagnoses / Procedures Referred By Contac t Referred To Contact XR IMAGING Diagnoses Aftercare following right hip joint replacement surgery Procedures XR PELVIS 1V AP RADIOLOGIC EXAMINATION PELVIS 1/2 VIEWS Olive Amaya PA-C [address] [place] [address] [place] [address] Referral ID Status Reason Start Date Expiration Date V isits Requested Visits Authorized [id number] Closed Auto-Generate d Referral 04/06/2023 05/05/2024 1 1 [facility] for referral (narrative)* Diagnostic Procedure Only (Routine) - Closed Specialty Diagnoses / Procedures Referred By Contac t Referred To Contact XR IMAGING Diagnoses Primary osteoarthritis of right hip Procedures XR HIP GENERAL 3V PELV/AP/LAT RIGHT RADEX HIP UNILATERAL WITH PELVIS 2-3 VIEWS Isaiah Arriaga MD [address] [place] [address] [place] [address] Referral ID Status Reason Start Date Expiration Date V isits Requested Visits Authorized [id number] Closed Auto-Generate d Referral 12/16/2022 01/15/2024 1 1 [facility] for referral (narrative)* Diagnostic Procedure Only (Routine) - Closed Specialty Diagnoses / Procedures Referred By Contac t Referred To Contact XR IMAGING Diagnoses Primary osteoarthritis of right hip Procedures XR HIP GENERAL 3V PELV/AP/LAT RIGHT RADEX HIP UNILATERAL WITH PELVIS 2-3 VIEWS Isaiah Arriaga MD [address] [place] [address] [place] [address] Referral ID Status Reason Start Date Expiration Date V isits Requested Visits Authorized [id number] Closed Auto-Generate d Referral 01/04/2022 02/03/2023 1 1 [facility] for referral (narrative)* Diagnostic Procedure Only (Routine) - Closed Specialty Diagnoses / Procedures Referred By Contac t Referred To Contact XR IMAGING Diagnoses Pain Procedures XR HIP GENERAL 3V PELV/AP/LAT RIGHT RADEX HIP UNILATERAL WITH PELVIS 2-3 VIEWS Gregor Barahona DO [address] [place] [address] [place] [address] Referral ID Status Reason Start Date Expiration Date V isits Requested Visits Authorized [id number] Closed Auto-Generate d Referral 10/09/2021 11/08/2022 1 1 [facility] for referral (narrative)* Diagnostic Procedure Only (Routine) - Closed Specialty Diagnoses / Procedures Referred By Contac t Referred To Contact XR IMAGING Diagnoses Pain Procedures XR SHOULDER GENERAL 3V OR MORE AP/TRUE AP/OTHER RIGHT RADEX SHOULDER COMPLETE MINIMUM 2 VIEWS Gregor Barahona DO [address] [place] [address] [place] [address] Referral ID Status Reason Start Date Expiration Date V isits Requested Visits Authorized [id number] Closed Auto-Generate d Referral 10/09/2021 11/08/2022 1 1 [facility] for referral (narrative)* Consultation (Routine) - Authorized Specialty Diagnoses / Procedures Referred By Contac t Referred To Contact Physical Therapy Diagnoses Dizziness Cervical paraspinal muscle spasm Procedures NM OFFICE/OUTPATIENT NEW HIGH MDM 60 MINUTES Kota Bonilla MD [address] [facility] [address] [place] [address] Teresa Croft, PT 112 [facility] [address] [place] [address] Referral ID Status Reason Start Date Expiration Date Visits Requested Visits Authorized [id number] Authorized Specialty Services Required 02/16/2024 08/14/2024 10 10 [facility] for referral (narrative)* Diagnostic Procedure Only (Routine) - Closed Specialty Diagnoses / Procedures Referred By Contac t Referred To Contact XR IMAGING Diagnoses Aftercare following right hip joint replacement surgery Procedures XR PELVIS 1V AP RADIOLOGIC EXAMINATION PELVIS 1/2 VIEWS Olive Amaya PA-C [address] [place] [address] [place] [address] Referral ID Status Reason Start Date Expiration Date V isits Requested Visits Authorized [id number] Closed Auto-Generate d Referral 03/24/2024 04/23/2025 1 1 [facility] for referral (narrative)* Diagnostic Procedure Only (Routine) - Closed Specialty Diagnoses / Procedures Referred By Contac t Referred To Contact XR IMAGING Diagnoses Aftercare following right hip joint replacement surgery Procedures XR PELVIS 1V AP RADIOLOGIC EXAMINATION PELVIS 1/2 VIEWS Olive Amaya PA-C [address] [place] [address] [place] [address] Referral ID Status Reason Start Date Expiration Date V isits Requested Visits Authorized [id number] Closed Auto-Generate d Referral 03/24/2024 04/23/2025 1 1 [facility] for visit NarrativeNeurosurgery Referral [facility] [employer] Other Reason for visit Narrative* Diagnostic Procedure Only (Routine) - Closed Specialty Diagnoses / Procedures Referred By Contac t Referred To Contact XR IMAGING Diagnoses Aftercare following right hip joint replacement surgery Procedures XR PELVIS 1V AP RADIOLOGIC EXAMINATION PELVIS 1/2 VIEWS Olive Amaya PA-C [address] [place] [address] [place] [address] Referral ID Status Reason Start Date Expiration Date V isits Requested Visits Authorized [id number] Closed Auto-Generate d Referral 04/06/2023 05/05/2024 1 1 [facility] for visit Narrative* Diagnostic Procedure Only (Routine) - Closed Specialty Diagnoses / Procedures Referred By Contac t Referred To Contact XR IMAGING Diagnoses Pain Procedures XR HIP GENERAL 3V PELV/AP/LAT RIGHT RADEX HIP UNILATERAL WITH PELVIS 2-3 VIEWS Gregor Barahona, DO [address] [place] [address] [place] [address] Referral ID Status Reason Start Date Expiration Date V isits Requested Visits Authorized [id number] Closed Auto-Generate d Referral 10/09/2021 11/08/2022 1 1 [facility] for visit Narrative* Consultation (Routine) - Authorized Specialty Diagnoses / Procedures Referred By Contac t Referred To Contact Physical Therapy Diagnoses Dizziness Cervical paraspinal muscle spasm Procedures NM OFFICE/OUTPATIENT [facility] MDM 60 MINUTES Kota Bonilla MD [address] [facility] [address] [place] [address] Teresa Croft, PT 112 [facility] [address] [place] [address] Referral ID Status Reason Start Date Expiration Date Visits Requested Visits Authorized [id number] Authorized Specialty Services Required 02/16/2024 08/14/2024 10 10 [facility]* Consultation (Routine) - Authorized Specialty Diagnoses / Procedures Referred By Contac t Referred To Contact Physical Therapy Diagnoses Dizziness Cervical paraspinal muscle spasm Procedures NM OFFICE/OUTPATIENT NEW HIGH MDM 60 MINUTES Kota Bonilla MD [address] [place] [address] Teresa Croft, PT [address] [address] Referral ID Status Reason Start Date Expiration Date Visits Requested Visits Authorized [id number] Authorized Specialty Services Required 02/16/2024 08/14/2024 15 15 [facility] N[facility]* Consultation (Routine) - Authorized Specialty Diagnoses / Procedures Referred By Ron t Referred To Contact Physical Therapy Diagnoses Dizziness Cervical paraspinal muscle spasm Procedures NM OFFICE/OUTPATIENT NEW HIGH MDM 60 MINUTES Kota Bonilla MD [address] [place] [address] Phone: tel: fax: Teresa Croft, PT [address] [address] Phone: tel: fax: Referral ID Status Reason Start Date Expiration Date Visits Requested Visits Authorized [id number] Authorized Specialty Services Required 02/16/2024 08/14/2024 15 15 [facility] N[facility]ative* Consultation (Routine) - Authorized Specialty Diagnoses / Procedures Referred By Contac t Referred To Contact Physical Therapy Diagnoses Dizziness Cervical paraspinal muscle spasm Procedures NM OFFICE/OUTPATIENT NEW HIGH MDM 60 MINUTES Kota Bonilla MD [address] [place] [address] Phone: tel: fax: Teresa Croft, PT [address] [address] Phone: tel: fax: Referral ID Status Reason Start Date Expiration Date Visits Requested Visits Authorized [id number] Authorized Specialty Services Required 02/16/2024 08/14/2024 15 19 [facility] Narrative* Diagnostic Procedure Only (Routine) - Closed Specialty Diagnoses / Procedures Referred By Ron pendleton Referred To Contact XR IMAGING Diagnoses Aftercare following right hip joint replacement surgery Procedures XR PELVIS 1V AP RADIOLOGIC EXAMINATION PELVIS 1/2 VIEWS Olive Amaya PA-C [address] [place] [address] [place] [address] Referral ID Status Reason Start Date Expiration Date V isits Requested Visits Authorized [id number] Closed Auto-Generate d Referral 03/24/2024 04/23/2025 1 1 [facility] Reason for Referral Specialty Diagnoses / Procedures Referred By Ron pendleton Referred To Contact Orthopedics Diagnoses Primary osteoarthritis of right hip Procedures CONSULT TO ORTHOPAEDICS OFFICE/OUTPATIENT [facility] 60-74 MINUTES Gregor Baarhona, [facility] [address] [place] [address] Referral ID Status Reason Start Date Expiration Date Visits Requested Visits Authorized [id number] Authorized PCP Requested Referral 10/25/2021 10/25/2022 1 1 Reason *10/09 [facility] for right hip and right shoulder pain, chronic Diagnosis 1 Right hip pain (M25. 551) Referral Organization [facility] [employer] Referring Provider First Name Lyndsay Referring Provider Last Name [facility] Referring Provider Specialty Nurse Pract itioner Referred Organization [facility] Referred Address [address] [facility] [place], [place],[address] Referred Provider Specialty ORTHOPEDIC S URGEON Referral Priority Routine General Notes Fore, Christine M 022 03:33:59 PM >Received and fax referral with form Reason *10/09 Chronic neck pain and requests referral to [facility] Neuro Sx Diagnosis 1 Chronic neck pain (M 54.2) Referral Organization [facility] [employer] Referring Provider First Name Lyndsay Referring Provider Last Name [facility] Referring Provider Specialty Nurse Pract itioner Referred Organization [facility] Referred Address [address] [facility] [place] [place], [place],[address] Referred Provider Specialty Neurological Surgery Referral Priority Routine General Notes Fore, Christine M 022 03:40:31 PM >Received today and fax referral with form Specialty Diagnoses / Procedures Referred By Contac t Referred To Contact [facility] Diagnoses Primary osteoarthritis of right hip Procedures CONSULT TO PHYSICAL THERAPY PHYSICAL THERAPY EVALUATION HIGH COMPLEX 45 MINS Isaiah Arriaga MD [address] [place] [address] [facility] [place] [address] [place] [address] Referral ID Status Reason Start Date Expiration Date Visits Requested Visits Authorized [id number] Authorized PCP Requested Referral Auto-Generate d Referral 3 03/15/2024 99 99 Summary Purpose Family History No Family History Records Found Relationship Condition Age at Onset Recorded Date/T erin Not Specified Myocardial infarction Unknown Relationship Condition Age at Onset Recorded Date/T erin father Malignant neoplasm Unknown Unknown Not Specified Heart disease Unknown High blood cholesterol Unknown Hypertension Unknown Myocardial infarction Unknown Relationship Condition Age at Onset Recorded Date/T erin father Malignant neoplasm Unknown Unknown mother Heart disease Unknown High blood cholesterol Unknown Hypertension Unknown Myocardial infarction Unknown Advance Directives No Advanced Directives Records FoundDocuments on File Type Date Recorded Patient Chief Of Staff Doctor Expl anation Advance Directive(s) 06/30/2022 1:49 PM Advance Directive Response Recorded Date/ Time Advance Directives No March 3:04pm Documents on File Type Date Recorded Patient Chief Of Staff Doctor Expl anation Advance Directive(s) 06/30/2022 1:49 PM Advance Directive Response Recorded Date/ Time Advance Directives No March 2:04pm Chief Complaint and Reason for Visit Chief Complaint Z12.31 Chief Complaint Amb Documentation cervical spondylosis Chief Complaint Amb Documentation cervical spondylosis Medicare Wellness/1 year follow up Chief Complaint Amb Documentation cervical spondylosis Medicare Wellness/1 year follow up Reason for Visit Cervical spondylosis Medicare annual wellness visit, subsequent Travel advice encounter Chief Complaint sore in mouth Chief Complaint sore in mouth Reason for Visit Acute reaction to si tuational stress History of right hip replacement Oral mucosal lesion Chief Complaint Admit Date Left shoulder pain x 2-3 weeks May 192024 10:25am Additional Source Comments Source Comments (unrecognize d section and content) In the event this informatio n is protected by the Federal Confidentiality of Alcohol and Drug Abuse Patient Records regulations: The Federal rules restrict any use of the information to criminally investigate or prosecute any alcohol or drug abuse patient.[facility] the event this information is protected by the Federal Confidentiality of Alcohol and Drug Abuse Patient Records regulations: The Federal rules restrict any use of the information to criminally investigate or prosecute any alcohol or drug abuse patient.[facility] Hospital[facility] the event this information is protected by the Federal Confidentiality of Alcohol and Drug Abuse Patient Records regulations: The Federal rules restrict any use of the information to criminally investigate or prosecute any alcohol or drug abuse patient.[facility] HospitalIn the event this information is protected by the Federal Confidentiality of Alcohol and Drug Abuse Patient Records regulations: The Federal rules restrict any use of the information to criminally investigate or prosecute any alcohol or drug abuse patient.[facility] HospitalIn the event this information is protected by the Federal Confidentiality of Alcohol and Drug Abuse Patient Records regulations: The Federal rules restrict any use of the information to criminally investigate or prosecute any alcohol or drug abuse patient.[facility] HospitalIn the event this information is protected by the Federal Confidentiality of Alcohol and Drug Abuse Patient Records regulations: The Federal rules restrict any use of the information to criminally investigate or prosecute any alcohol or drug abuse patient.[facility] Hospital[facility] the event this information is protected by the Federal Confidentiality of Alcohol and Drug Abuse Patient Records regulations: The Federal rules restrict any use of the information to criminally investigate or prosecute any alcohol or drug abuse patient.[facility] HospitalIn the event this information is protected by the Federal Confidentiality of Alcohol and Drug Abuse Patient Records regulations: The Federal rules restrict any use of the information to criminally investigate or prosecute any alcohol or drug abuse patient.[facility] HospitalIn the event this information is protected by the Federal Confidentiality of Alcohol and Drug Abuse Patient Records regulations: The Federal rules restrict any use of the information to criminally investigate or prosecute any alcohol or drug abuse patient.[facility] HospitalIn the event this information is protected by the Federal Confidentiality of Alcohol and Drug Abuse Patient Records regulations: The Federal rules restrict any use of the information to criminally investigate or prosecute any alcohol or drug abuse patient.[facility] HospitalIn the event this information is protected by the Federal Confidentiality of Alcohol and Drug Abuse Patient Records regulations: The Federal rules restrict any use of the information to criminally investigate or prosecute any alcohol or drug abuse patient.[facility] HospitalIn the event this information is protected by the Federal Confidentiality of Alcohol and Drug Abuse Patient Records regulations: The Federal rules restrict any use of the information to criminally investigate or prosecute any alcohol or drug abuse patient.[facility] HospitalIn the event this information is protected by the Federal Confidentiality of Alcohol and Drug Abuse Patient Records regulations: The Federal rules restrict any use of the information to criminally investigate or prosecute any alcohol or drug abuse patient.[facility] HospitalIn the event this information is protected by the Federal Confidentiality of Alcohol and Drug Abuse Patient Records regulations: The Federal rules restrict any use of the information to criminally investigate or prosecute any alcohol or drug abuse patient.[facility] HospitalIn the event this information is protected by the Federal Confidentiality of Alcohol and Drug Abuse Patient Records regulations: The Federal rules restrict any use of the information to criminally investigate or prosecute any alcohol or drug abuse patient.[facility] HospitalIn the event this information is protected by the Federal Confidentiality of Alcohol and Drug Abuse Patient Records regulations: The Federal rules restrict any use of the information to criminally investigate or prosecute any alcohol or drug abuse patient.[facility] HospitalIn the event this information is protected by the Federal Confidentiality of Alcohol and Drug Abuse Patient Records regulations: The Federal rules restrict any use of the information to criminally investigate or prosecute any alcohol or drug abuse patient.[facility] HospitalIn the event this information is protected by the Federal Confidentiality of Alcohol and Drug Abuse Patient Records regulations: The Federal rules restrict any use of the information to criminally investigate or prosecute any alcohol or drug abuse patient.[facility] HospitalIn the event this information is protected by the Federal Confidentiality of Alcohol and Drug Abuse Patient Records regulations: The Federal rules restrict any use of the information to criminally investigate or prosecute any alcohol or drug abuse patient.[facility] HospitalIn the event this information is protected by the Federal Confidentiality of Alcohol and Drug Abuse Patient Records regulations: The Federal rules restrict any use of the information to criminally investigate or prosecute any alcohol or drug abuse patient.[facility] HospitalIn the event this information is protected by the Federal Confidentiality of Alcohol and Drug Abuse Patient Records regulations: The Federal rules restrict any use of the information to criminally investigate or prosecute any alcohol or drug abuse patient.[facility] HospitalIn the event this information is protected by the Federal Confidentiality of Alcohol and Drug Abuse Patient Records regulations: The Federal rules restrict any use of the information to criminally investigate or prosecute any alcohol or drug abuse patient.[facility] HospitalIn the event this information is protected by the Federal Confidentiality of Alcohol and Drug Abuse Patient Records regulations: The Federal rules restrict any use of the information to criminally investigate or prosecute any alcohol or drug abuse patient.[facility] HospitalIn the event this information is protected by the Federal Confidentiality of Alcohol and Drug Abuse Patient Records regulations: The Federal rules restrict any use of the information to criminally investigate or prosecute any alcohol or drug abuse patient.[facility] HospitalIn the event this information is protected by the Federal Confidentiality of Alcohol and Drug Abuse Patient Records regulations: The Federal rules restrict any use of the information to criminally investigate or prosecute any alcohol or drug abuse patient.[facility] HospitalIn the event this information is protected by the Federal Confidentiality of Alcohol and Drug Abuse Patient Records regulations: The Federal rules restrict any use of the information to criminally investigate or prosecute any alcohol or drug abuse patient.[facility] HospitalIn the event this information is protected by the Federal Confidentiality of Alcohol and Drug Abuse Patient Records regulations: The Federal rules restrict any use of the information to criminally investigate or prosecute any alcohol or drug abuse patient.[facility] HospitalIn the event this information is protected by the Federal Confidentiality of Alcohol and Drug Abuse Patient Records regulations: The Federal rules restrict any use of the information to criminally investigate or prosecute any alcohol or drug abuse patient.[facility] HospitalIn the event this information is protected by the Federal Confidentiality of Alcohol and Drug Abuse Patient Records regulations: The Federal rules restrict any use of the information to criminally investigate or prosecute any alcohol or drug abuse patient.[facility] HospitalIn the event this information is protected by the Federal Confidentiality of Alcohol and Drug Abuse Patient Records regulations: The Federal rules restrict any use of the information to criminally investigate or prosecute any alcohol or drug abuse patient.[facility] HospitalIn the event this information is protected by the Federal Confidentiality of Alcohol and Drug Abuse Patient Records regulations: The Federal rules restrict any use of the information to criminally investigate or prosecute any alcohol or drug abuse patient.[facility] HospitalIn the event this information is protected by the Federal Confidentiality of Alcohol and Drug Abuse Patient Records regulations: The Federal rules restrict any use of the information to criminally investigate or prosecute any alcohol or drug abuse patient.[facility] HospitalIn the event this information is protected by the Federal Confidentiality of Alcohol and Drug Abuse Patient Records regulations: The Federal rules restrict any use of the information to criminally investigate or prosecute any alcohol or drug abuse patient.[facility] HospitalIn the event this information is protected by the Federal Confidentiality of Alcohol and Drug Abuse Patient Records regulations: The Federal rules restrict any use of the information to criminally investigate or prosecute any alcohol or drug abuse patient.[facility] HospitalIn the event this information is protected by the Federal Confidentiality of Alcohol and Drug Abuse Patient Records regulations: The Federal rules restrict any use of the information to criminally investigate or prosecute any alcohol or drug abuse patient.[facility] HospitalIn the event this information is protected by the Federal Confidentiality of Alcohol and Drug Abuse Patient Records regulations: The Federal rules restrict any use of the information to criminally investigate or prosecute any alcohol or drug abuse patient.[facility] HospitalIn the event this information is protected by the Federal Confidentiality of Alcohol and Drug Abuse Patient Records regulations: The Federal rules restrict any use of the information to criminally investigate or prosecute any alcohol or drug abuse patient.[facility] HospitalIn the event this information is protected by the Federal Confidentiality of Alcohol and Drug Abuse Patient Records regulations: The Federal rules restrict any use of the information to criminally investigate or prosecute any alcohol or drug abuse patient.[facility] HospitalIn the event this information is protected by the Federal Confidentiality of Alcohol and Drug Abuse Patient Records regulations: The Federal rules restrict any use of the information to criminally investigate or prosecute any alcohol or drug abuse patient.[facility] HospitalIn the event this information is protected by the Federal Confidentiality of Alcohol and Drug Abuse Patient Records regulations: The Federal rules restrict any use of the information to criminally investigate or prosecute any alcohol or drug abuse patient.[facility] HospitalIn the event this information is protected by the Federal Confidentiality of Alcohol and Drug Abuse Patient Records regulations: The Federal rules restrict any use of the information to criminally investigate or prosecute any alcohol or drug abuse patient.[facility] HospitalIn the event this information is protected by the Federal Confidentiality of Alcohol and Drug Abuse Patient Records regulations: The Federal rules restrict any use of the information to criminally investigate or prosecute any alcohol or drug abuse patient.[facility] HospitalIn the event this information is protected by the Federal Confidentiality of Alcohol and Drug Abuse Patient Records regulations: The Federal rules restrict any use of the information to criminally investigate or prosecute any alcohol or drug abuse patient.[facility] HospitalIn the event this information is protected by the Federal Confidentiality of Alcohol and Drug Abuse Patient Records regulations: The Federal rules restrict any use of the information to criminally investigate or prosecute any alcohol or drug abuse patient.[facility] Reason for Visit (unrecogniz ed section and content) Reason Comments Received Outside Medical Records Reason Comments Radiology XR Reason Comments New Pain Reason Comments Fuch's Dystrophy Reason Comments Medication Question Reason Comments New Pain Specialty Diagnoses / Procedures Referred By Ron t Referred To Contact Orthopedics Diagnoses Primary osteoarthritis of right hip Procedures CONSULT TO ORTHOPAEDICS OFFICE/OUTPATIENT NEW HIGH MDM 60-74 MINUTES Gregor Barahona, [place] [address] Referral ID Status Reason Start Date Expiration Date V isits Requested Visits Authorized [id number] Closed PCP Requested Referral 10/25/2021 10/25/2022 1 1 Reason Comments Pre-Op Exam Reason Comments Outcomes Reason Comments Research FECD STUDY Reason Comments 1 day post op DMEK, P/c IOL OS Reason Comments Post-op (Ophthalmology) OD POD#1 DMEK/PC IOL Reason Onset Date Comments Refill Request 04/28/2022 Reason Comments Pseudophakia Reason Comments Droopy Both Upper Lids Reason Comments Geriatric Evaluation Reason Onset Date Comments Refill Request 07/10/2022 Reason Onset Date Comments Refill Request 07/15/2022 Celebrex Reason Comments Anesthesia Consult Bilateral droopy eye s Reason Comments Preparations For Surgery Reason Comments Post-Op Visit 09/02/2022 s/p Blepha roplasty Reason Comments Established Patient Post Op Reason Comments Established Patient Follow Up Post Op Hip Replacement Reason Comments Appointment Reason Comments Follow Up Reason Comments Radiology XR Specialty Diagnoses / Procedures Referred By Contac t Referred To Contact XR IMAGING Diagnoses Aftercare following right hip joint replacement surgery Procedures XR PELVIS 1V AP RADIOLOGIC EXAMINATION PELVIS 1/2 VIEWS Olive Amaya PA-C [address] [place] [address] [place] [address] Referral ID Status Reason Start Date Expiration Date V isits Requested Visits Authorized [id number] Closed Auto-Generate d Referral 09/22/2023 10/21/2024 1 1 Specialty Diagnoses / Procedures Referred By Contac t Referred To Contact XR IMAGING Diagnoses Primary osteoarthritis of right hip Procedures XR HIP GENERAL 3V PELV/AP/LAT RIGHT RADEX HIP UNILATERAL WITH PELVIS 2-3 VIEWS Isaiah Arriaga MD [address] [place] [address] [place] [address] Referral ID Status Reason Start Date Expiration Date V isits Requested Visits Authorized [id number] Closed Auto-Generate d Referral 12/16/2022 01/15/2024 1 1 Referral ID Status Reason Start Date Expiration Date V isits Requested Visits Authorized [id number] Closed Auto-Generate d Referral 01/04/2022 02/03/2023 1 1 Specialty Diagnoses / Procedures Referred By Contac t Referred To Contact XR IMAGING Diagnoses Pain Procedures XR SHOULDER GENERAL 3V OR MORE AP/TRUE AP/OTHER RIGHT RADEX SHOULDER COMPLETE MINIMUM 2 VIEWS Gregor Barahona, DO [address] [place] [address] [place] [address] Referral ID Status Reason Start Date Expiration Date V isits Requested Visits Authorized [id number] Closed Auto-Generate d Referral 10/09/2021 11/08/2022 1 1 Reason Comments Cervical Spondylosis Reason Onset Date Comments PT Initial Eval 02/18/2024 Tried to contact to schedule PT Eval for dizziness / muscle spasms; lm requesting a call back. fu 02/23/2024 Contacted and sc heduled PT Eval w/ Teresa Croft, PT on 02/24/24. Reason Comments Established Patient Pain Reason Comments Med Change Request Care Teams (unrecognized sec tion and content) Team Status: Active Member Role Status Dates Lyndsay Dunbar APRN Primary Care Provider Active Team Status: Active Member Role Status Dates Lyndsay Dunbar APRN Primary Care Provider Active Start: July 31, 2023 ALLI Oneill Attending Provider Active St art: July 31, 2023 Team Status: Inactive Member Role Status Dates Lyndsay Dunbar APRN Primary Care Pr ovider, Attending Provider Active Start: September 04, 2023 End: September 04, 2023 Business Law Instructor Relationship Specialty Start Date End Date Lyndsay Dunbar, DINKER [address] [facility] [place] [address] Referring Family Practice 10/02/21 Business Law Instructor Relationship Specialty Start Date End Date Lyndsay Dunbar, DINKER [address] [address] Referring Family Practice 10/02/21 Business Law Instructor Relationship Specialty Start Date End Date Lyndsay Dunbar, DINKER [address] [address] Referring Family Practice 10/02/21 Business Law Instructor Relationship Specialty Start Date End Date Lyndsay Dunbar, DINKER [address] [address] Referring Family Practice 10/02/21 Business Law Instructor Relationship Specialty Start Date End Date Lyndsay Dunbar, DINKER [address] [address] Referring Family Practice 10/02/21 Business Law Instructor Relationship Specialty Start Date End Date Jc Dunbara, DINKER [address] [address] Referring Family Practice 10/02/21 Business Law Instructor Relationship Specialty Start Date End Date Jc Dunbara, DINKER [address] [address] Referring Family Practice 10/02/21 Business Law Instructor Relationship Specialty Start Date End Date Lyndsay Dunbar DINKER [address] [address] Referring Family Medicine 10/02/21 Business Law Instructor Relationship Specialty Start Date End Date Lyndsay Dunbar DINKER [address] [address] Referring Family Medicine 10/02/21 Business Law Instructor Relationship Specialty Start Date End Date Lyndsay Dunbar DINKER [address] [address] Referring Family Medicine 10/02/21 Business Law Instructor Relationship Specialty Start Date End Date Lyndsay Dunbar DINKER [address] [place] [address] PCP - General Family Medicine 03/10/22 PanchitomauricioLyndsay, DINKER [address] [place] [address] Referring Family Medicine 10/02/21 Business Law Instructor Relationship Specialty Start Date End Date Lyndsay Dunbar DINKER [address] [place] [address] PCP - General Family Medicine 03/10/22 Panchitomauricio Lyndsay, DINKER [address] [facility] [address] [place] [address] Referring Family Medicine 10/02/21 Business Law Instructor Relationship Specialty Start Date End Date Lyndsay Dunbar, DINKER [address] [place] [address] PCP - General Family Medicine 03/10/22 PanchitoJc martíneza, DINKER [address] [place] [address] Referring Family Medicine 10/02/21 Business Law Instructor Relationship Specialty Start Date End Date Lyndsay Dunbar DINKER [address] [address] PCP - General Family Medicine 03/10/22 Lyndsay Dunbar, DINKER [address] [place] [address] Referring Family Medicine 10/02/21 Business Law Instructor Relationship Specialty Start Date End Date Lyndsay Dunbar, DINKER [address] [address] PCP - General Family Medicine 03/10/22 Lyndsay Dunbar, DINKER [address] [place] [address] Referring Family Medicine 10/02/21 Business Law Instructor Relationship Specialty Start Date End Date Lyndsay Dunbar DINKER [address] [place] [address] PCP - General Family Medicine 03/10/22 Lyndsay Dunbar DINKER [address] [place] [address] Referring Family Medicine 10/02/21 Business Law Instructor Relationship Specialty Start Date End Date Lyndsay Dunbar, DINKER [address] [place] [address] PCP - General Family Medicine 03/10/22 Lyndsay Dunbar, DINKER [address] [place] [address] Referring Family Medicine 10/02/21 Business Law Instructor Relationship Specialty Start Date End Date Lyndsay Dunbar, DINKER [address] [place] [address] PCP - General Family Medicine 03/10/22 Lyndsay Dunbar, DINKER [address] [facility] [place] [address] Referring Family Medicine 10/02/21 Business Law Instructor Relationship Specialty Start Date End Date Lyndsay Dunbar, DINKER [address] [facility] [place] [address] PCP - General Family Medicine 03/10/22 Lyndsay Dunbar, DINKER [address] [address] Referring Family Medicine 10/02/21 Business Law Instructor Relationship Specialty Start Date End Date Lyndsay Dunbar, DINKER [address] [address] PCP - General Family Medicine 03/10/22 Lyndsay Dunbar CNP [address] [address] Referring Family Medicine 10/02/21 Team Status: Inactive Member Role Status Dates Lyndsay Dunbar APRN Primary Care Provider, Attend ing Provider Active Business Law Instructor Relationship Specialty Start Date End Date Lyndsay Dunbar CNP [address] [address] PCP - General Family Medicine 03/10/22 Lyndsay Dunbar CNP [address] [facility] [address] [place] [address] Referring Family Medicine 10/02/21 Business Law Instructor Relationship Specialty Start Date End Date Lyndsay Dunbar CNP [address] [facility] [address] [place] [address] PCP - General Family Medicine 03/10/22 Lyndsay Dunbar CNP [address] [address] Referring Family Medicine 10/02/21 Business Law Instructor Relationship Specialty Start Date End Date Lyndsay Dunbar CNP [address] [address] PCP - General Family Medicine 03/10/22 Lyndsay Dunbar CNP [address] [address] Referring Family Medicine 10/02/21 Business Law Instructor Relationship Specialty Start Date End Date Lyndsay Dunbar CNP [address] [address] PCP - General Family Medicine 03/10/22 Lyndsay Dunbar CNP [address] [address] Referring Family Medicine 10/02/21 Business Law Instructor Relationship Specialty Start Date End Date Lyndsay Dunbar CNP [address] [address] PCP - General Family Medicine 03/10/22 Lyndsay Dunbar CNP [address] [address] Referring Family Medicine 10/02/21 Business Law Instructor Relationship Specialty Start Date End Date Lyndsay uDnbar CNP [address] [address] PCP - General Family Medicine 03/10/22 Lyndsay Dunbar CNP [address] [facility] [address] [place] [address] Referring Family Medicine 10/02/21 Business Law Instructor Relationship Specialty Start Date End Date Lyndsay Dunbar CNP [address] [facility] [address] [place] [address] PCP - General Family Medicine 03/10/22 Lyndsay Dunbar CNP [address] [facility] [address] [place] [address] Referring Family Medicine 10/02/21 Business Law Instructor Relationship Specialty Start Date End Date Lyndsay Dunbar CNP [address] [address] PCP - General Family Medicine 03/10/22 Lyndsay Dunbar CNP [address] [facility] [address] [address] Referring Family Medicine 10/02/21 Business Law Instructor Relationship Specialty Start Date End Date Lyndsay Dunbar CNP [address] [facility] [address] [address] PCP - General Family Medicine 03/10/22 Lyndsay Dunbar CNP [address] [facility] [address] [place] [address] Referring Family Medicine 10/02/21 Team Status: Active Member Role Status Dates Isaiah Arriaga Ii, MD Specialist Active Lyndsay Dunbar APRN Primary Care Provider Active Team Status: Active Member Role Status Dates Lyndsay Dunbar APRN Primary Care Provider Active Start: October 09, 2023 Lyndsay Torres Attending Provider Active Start: October 09, 2023 Team Status: Inactive Member Role Status Dates Lyndsay Dunbar APRN Primary Care Pr jihan, Attending Provider Active Start: October 29, 2023 End: October 29, 2023 Business Law Instructor Relationship Specialty Start Date End Date Lyndsay Dunbar CNP [address] [address] PCP - General Family Medicine 03/10/22 Lyndsay Dunbar CNP [address] [address] Referring Family Medicine 10/02/21 Business Law Instructor Relationship Specialty Start Date End Date Lyndsay Dunbar CNP [address] [address] PCP - General Family Medicine 03/10/22 Lyndsay Dunbar CNP [address] [address] Referring Family Medicine 10/02/21 Team Status: Inactive Member Role Status Dates Lyndsay Dunbar APRN Primary Care Sherrill bobo Attending Provider Active Start: February 08, 2024 End: February 08, 2024 Business Law Instructor Relationship Specialty Start Date End Date Lyndsay Dunbar CNP [address] [address] Referring Family Medicine 10/02/21 Business Law Instructor Relationship Specialty Start Date End Date Lyndsay Dunbar CNP [address] [address] Referring Family Medicine 10/02/21 Business Law Instructor Relationship Specialty Start Date End Date Lyndsay Dunbar CNP [address] [address] Referring Family Medicine 10/02/21 Business Law Instructor Relationship Specialty Start Date End Date Unallocated, Vilma Lopez MD [facility] [place] [address] PCP - General 01/06/23 Business Law Instructor Relationship Specialty Start Date End Date Unallocated, Vilma Lopez MD [facility] [address] [facility] [place] [address] PCP - General 01/06/23 Business Law Instructor Relationship Specialty Start Date End Date Unallocated, Vilma Lopez MD [facility] [place] [address] PCP - General 01/06/23 Business Law Instructor Relationship Specialty Start Date End Date Unallocated, Vilma Lopez MD [facility] [place] [address] PCP - General 01/06/23 Business Law Instructor Relationship Specialty Start Date End Date Unallocated, Vilma Lopez MD [facility] [place] [address] PCP - General 01/06/23 Business Law Instructor Relationship Specialty Start Date End Date Unallocated, Vilma Lopez MD [facility] [address] [facility] [place] [address] PCP - General 01/06/23 Business Law Instructor Relationship Specialty Start Date End Date Unallocated, Vilma Lopez MD [facility] [address] [facility] [place] [address] PCP - General 01/06/23 Business Law Instructor Relationship Specialty Start Date End Date Unallocated, MD Garcia Levine [address] [facility] [place] [address] PCP - General 01/06/23 Business Law Instructor Relationship Specialty Start Date End Date Unallocated, MD Garcia Levine0 [address] [facility] [place] [address] PCP - General 01/06/23 Business Law Instructor Relationship Specialty Start Date End Date Unallocated, Vilma Lopez MD [facility] [address] [facility] [place] [address] PCP - General 01/06/23 Business Law Instructor Relationship Specialty Start Date End Date Unallocated, Vilma Lopez MD [facility] [address] [facility] [place] [address] PCP - General 01/06/23 Business Law Instructor Relationship Specialty Start Date End Date Unallocated, Vilma Lopez MD [facility] [address] [facility] [place] [address] PCP - General 01/06/23 Business Law Instructor Relationship Specialty Start Date End Date Unallocated, Vilma Lopez MD [facility] [place] [address] PCP - General 01/06/23 Business Law Instructor Relationship Specialty Start Date End Date Lyndsay Dunbar CNP [address] [address] PCP - General Family Medicine 03/10/22 Lyndsay Dunbar CNP [address] [address] Referring Family Medicine 10/02/21 Team Status: Inactive Member Role Status Dates Lyndsay Dunbar APRN Primary Care Pr ovidpriyanka, Attending Provider Active Start: 2024 End: 2024 Business Law Instructor Relationship Specialty Start Date End Date Unallocated, Vilma Lopez MD [facility] [place] [address] PCP - General 01/06/23 Lyndsay Dunbar MD [address] [facility] [place] [address] [place] [address] Referring Physician Family Medicine 06/27/24 Business Law Instructor Relationship Specialty Start Date End Date Unallocated, Vilma Lopez MD [address] [place] [address] PCP - General 01/06/23 Lyndsay Dunbar MD [address] [place] [address] [place] [address] Referring Physician Family Medicine 06/27/24 Business Law Instructor Relationship Specialty Start Date End Date Unallocated, Vilma Lopez MD [facility] [place] [address] PCP - General 01/06/23 Lyndsay Dunbar NP [facility] [place] [place] [address] Referring Physician Family Medicine 06/27/24 Business Law Instructor Relationship Specialty Start Date End Date Unallocated, Vilma Lopez MD [facility] [place] [place] [address] PCP - General 01/06/23 Lyndsay Dunbar NP [address] [place] [address] Referring Physician Family Medicine 06/27/24 Business Law Instructor Relationship Specialty Start Date End Date Unallocated, Vilma Lopez MD [address] [place] [address] PCP - General 01/06/23 Lyndsay Dunbar NP [address] [facility] [place] [address] Referring Physician Family Medicine 06/27/24 INFORMATION SOURCE (unrecogn ized section and content) DATE CREATED AUTHOR 01/23/[address] [facility] DATE CREATED AUTHOR AUTHOR'S ORGANIZ ATION 04/19/[address] [facility] DATE CREATED AUTHOR AUTHOR'S ORGANIZ ATION 03/22/2023 [facility] DATE CREATED AUTHOR AUTHOR'S ORGANIZ ATION 09/29/2023 [facility] DATE CREATED AUTHOR AUTHOR'S ORGANIZ ATION 09/27/2024 [facility] DATE CREATED AUTHOR AUTHOR'S ORGANIZ ATION 10/12/2024 [facility] Goals (unrecognized section and content) Goals may be documented in a n alternate section FOR RECORDS PERTAINING TO PATIENTS WHO ARE OR HAVE BEEN ENROLLED IN A CHEMICAL DEPENDENCY/SUBSTANCEABUSE PROGRAM, SOME INFORMATION MAY BE OMITTED. This clinical summary was aggregated from multiple sources. Caution should be exercised in using it in the provision of clinical care. This summary normalizes information from multiple sources, and as a consequence, information in this document may materially change the coding, format and clinical context of patient data. In addition, data may be omitted in some cases. CLINICAL DECISIONS SHOULD BE BASED ON THE PRIMARY CLINICAL RECORDS. [employer] provides no warranty or guarantee of the accuracy or completeness of information in this document.
[2024-11-09 07:30] LABS: Basophils Absolute Auto 0.1 10^3/uL (0.0-0.1); Basophils Percent Auto 1.2 % (0.2-2.0); Eosinophils Absolute Auto 0.3 10^3/uL (0.0-0.7); Eosinophils Percent Auto 4.8 % (0.9-7.0); Hematocrit 44.6 % (36.0-48.0); Immature Granulocytes Abs Auto 0.02 10^3/uL (0.00-0.03); Immature Granulocytes Pct Auto 0.4 % (0.0-0.5); Lymphocytes Absolute Auto 1.5 10^3/uL (1.2-3.8); Mean Corpuscular HGB Conc 33.6 g/dL (29.9-35.2); Mean Corpuscular Hemoglobin 30.5 pg (26.7-34.0); Mean Corpuscular Volume 90.8 fL (81.0-99.0); Mean Platelet Volume 9.8 fL (9.5-13.5); Monocytes Absolute Auto 0.6 10^3/uL (0.3-0.8); Monocytes Percent Auto 9.9 % (1.7-12.0); Neutrophils Absolute Auto 3.2 10^3/uL (1.4-6.5); Neutrophils Percent Auto 56.7 % (43.0-75.0); Platelet Count 245 10^3/uL (150-450); Red Blood Count 4.91 10^6/uL (4.20-5.40); Red Cell Distribution Width 14.2 % (11.0-15.0); White Blood Count 5.6 10^3/uL (4.0-11.0)
[2024-11-09 07:33] LABS: Bilirubin Urine NEGATIVE (NEGATIVE); Blood Urine TRACE-I (NEGATIVE); Clarity Urine CLEAR (CLEAR); Color Urine LT. YELLOW (YELLOW); Glucose Urine UA NEGATIVE (NEGATIVE); Ketones Urine NEGATIVE (NEGATIVE); Leukocyte Esterase Urine SMALL (NEGATIVE); Nitrite Urine NEGATIVE (NEGATIVE); Protein Urine NEGATIVE (NEG/TRACE); Urobilinogen Urine 0.2 EU/dL (0.2-1.0); pH Urine 6.5 (5.0-9.0)
[2024-11-09 08:12] LABS: Alanine Aminotransferase 42 U/L (14-59); Albumin Level 3.6 g/dL (3.4-5.0); Alkaline Phosphatase 84 U/L (46-116); Anion Gap 12.2; Aspartate Amino Transferase 41 U/L (15-37); Bilirubin Total 0.9 mg/dL (0.2-1.0); Calcium 8.8 mg/dL (8.5-10.1); Carbon Dioxide 28.8 mmol/L (21.0-32.0); Chloride 103 mmol/L (98-107); Chol HDL Ratio 2.4; Cholesterol 202 mg/dL (<=200); Estimated GFR (African America >60 (>=60 mL/min/1.73m^2); Estimated GFR (Non-African Ame 51 (>=60 mL/min/1.73m^2); Globulin 3.6 g/dL; Glucose 95 mg/dL (74-106); HDL Cholesterol 85 mg/dL (40-60); Sodium 140 mmol/L (136-145); Total Protein 7.2 g/dL (6.4-8.2); Triglycerides 53 mg/dL (<=150); VLDL CHOLESTEROL 10.6 mg/dL
== END 2024-11-09 07:20 | disposition home or self-care (01) ==
LOC: LAB 07:19
PROVIDERS: PCP Nurse Practitioner Family; Visit Provider Nurse Practitioner Family
DX: R53.83 Other fatigue (principal); R30.0 Dysuria; E78.5 Hyperlipidemia, unspecified
CPT/HCPCS: 36415; 80053; 80061; 81003; 85025; 87086

== ENCOUNTER 2024-11-16 09:56 | Outpatient (OUT) | payer MEDICARE, SELFPAY ==
--- NOTE | 2024-11-16 09:59 | MM_ITS ---
Patient Name: GRACIE FAROOQ MR#: [id number] : 1950 Exam Date: 11/16/2024 Ordering Doctor: LYNDSAY DUNBAR RADIOLOGY REPORT PROCEDURE: MM TOMOSYNTHESIS SCREENING BI COMPARISON: MM TOMOSYNTHESIS SCREENING BI, 10/09/2023. MG MAMM SCREEN MARYAM W CAD, 06/21/2018. MG MAMM SCREEN MARYAM W CAD, 05/19/2017. INDICATIONS: Screening Calculator Name NCI Breast Cancer Risk Assessment Tool 5 Year Breast Cancer Risk 2.20% Lifetime Breast Cancer Risk 5.40% Personal Breast Cancer No Personal Ovarian Cancer No Treatments None Family Cancers Father with lung cancer at age 76. LOCATION: [facility] BREAST COMPOSITION: The breasts are heterogeneously dense, which may obscure small masses. FINDINGS: DIAGNOSTIC CATEGORY 1--NEGATIVE. RIGHT BREAST: No significant suspicious finding. LEFT BREAST: No significant suspicious finding. RECOMMENDATIONS: ROUTINE MAMMOGRAM AND CLINICAL EVALUATION IN 12 MONTHS. PLEASE NOTE: A NORMAL MAMMOGRAM DOES NOT EXCLUDE THE POSSIBILITY OF BREAST CANCER. A CLINICALLY SUSPICIOUS PALPABLE LUMP SHOULD BE BIOPSIED. Dictated by: Luciano Jeffries MD on 11/16/2024 at 14:38 Approved by: Luciano Jeffries MD on 11/16/2024 at 15:02
== END 2024-11-16 09:57 | disposition home or self-care (01) ==
LOC: MAMMO 09:56
PROVIDERS: PCP Nurse Practitioner Family; Visit Provider Nurse Practitioner Family
DX: Z12.31 Encounter for screening mammogram for malignant neoplasm of breast (principal); Z80.1 Family history of malignant neoplasm of trachea, bronchus and lung
CPT/HCPCS: 77063; 77067

== ENCOUNTER 2025-03-03 08:00 | Outpatient (OUT) | payer MEDICARE, SELFPAY ==
--- OUTSIDE RECORDS SUMMARY | 2025-02-21 07:20 | XMS_ITS | Encounter Summary ---
Author Organization [facility] Address [facility] [place] [address] Care Team Providers Care Supervisor Communications And Signals Name Role Phone Gela Bustillo CNP Unavailable [phone] Gela Bustillo FERDI Primary Care Provider [phone] Source Comments In the event this information is protected by the Federal Confidentiality of Alcohol and Drug AbusePatient Records regulations: The Federal rules restrict any use of the information to criminally investigate or prosecute any alcohol or drug abuse patient.[facility] Reason for Referral * MRI/CT (Routine) - Closed Specialty Diagnoses / Procedures Referred By Contac t Referred To Contact MR IMAGING Diagnoses Midline low back pain without sciatica, unspecified chronicity Procedures MRI LUMBAR SPINE WO IVCON MRI SPINAL CANAL LUMBAR W/O CONTRAST MATERIAL Basilio Maddox MD [address] [facility] [place] [address] Phone: tel: fax: [place] [address] Referral ID Status Reason Start Date Expiration Date V isits Requested Visits Authorized [id number] Closed Auto-Generate d Referral 01/23/2025 02/22/2026 1 1 Reason for Visit * MRI/CT (Routine) - Closed Specialty Diagnoses / Procedures Referred By Contac t Referred To Contact MR IMAGING Diagnoses Midline low back pain without sciatica, unspecified chronicity Procedures MRI LUMBAR SPINE WO IVCON MRI SPINAL CANAL LUMBAR W/O CONTRAST MATERIAL Basilio Maddox MD [address] [facility] [place] [address] Phone: tel: fax: [place] [address] Referral ID Status Reason Start Date Expiration Date V isits Requested Visits Authorized [id number] Closed Auto-Generate d Referral 01/23/2025 02/22/2026 1 1 Encounter Details Date Type Department Care Team (Latest Contact Info) Description 02/21/2025 7:20 AM EDT - 02/21/2025 11:59 PM EDT Hospital Encounter Radiology [address] [facility] [address] Midline low back pain without sciatica, unspecified chronicity [M54.50] Discharge Disposition: Home Social History Tobacco Use Types Packs/Day Years Used Date Smoking Tobacco: Former Cigarettes 0.2 1 1 973 - 8477 Smokeless Tobacco: Never Alcohol Use Standard Drinks/Week Comments Yes 0 (1 standard drink = 0.6 oz pur e alcohol) occasionally Social Connection and Isolation Panel Answer Date Recorded In a typical week, how many times do you talk on the phone with family, friends, or neighbors? Once a week 06/29/2022 How often do you get togethe r with friends or relatives? More than three times a week 06/29/2022 How often do you attend [facility] or jainism services? More than 4 times per year 06/29/2022 Do you belong to any clubs o r organizations such as worship groups, unions, fraternal or athletic groups, or [...] PHQ-2 Answer Date Recorded PHQ-2 score 0 01/04/2025 [facility] of Occupat ional [facility] - Occupational Stress Questionnaire Answer Date Recorded [...] is lower risk 7 10/14/2022 Data from: https://www.neighborhoodatlas.medicine.[facility]/. Last address used for calculation [address] [...] Tamra Weller RN documented in this encounter Medications at Time of Discharge vitamin b complex (B-COMPLEX) tab 1 tablet once daily. 10/16/2024 turmeric 400 mg cap Take 1 capsule by mouth once daily. Cholecalciferol, Vitamin D3, 50 mcg (2,000 unit) cap Take 2,000 Units by mouth once daily. 12/25/2021 documented as of this encounter Progress Notes * Samantha Medrano RT(R) - 02/21/2025 7:20 AM EDT Radiology Service Progress Note PATIENT NAME: Hayde Jones DATE OF SERVICE: February 21, 2025 TIME: 8:16 AM PATIENT IDENTITY VERIFICATION COMPLETED USING TWO (2) IDENTIFIERS: Name and Date of confirmedby patient verbally and Name and Date of confirmed by identification band FALL SCREENING: Has the patient had 2 falls in the last year or 1 fall with injury or currently using an Ambulatory Assistive Device (Walker, Cane, Wheelchair, Crutches, etc.)? No PATIENT GENDER DATA: Assigned female at . status: : No status:NO. PATIENT RELEVANT IMPLANT DATA REVIEWED: Yes PATIENT PRESENTS WITH AN IMPLANTABLE OR ATTACHED CHANGE DIRECTOR: No RADIOLOGY DEPARTMENT: MR; Exam(s) Completed: Spine: Lumbar spine PERIPHERAL IV DATA: Not applicable SIGNED BY: RT Margo(R) February 21, 2025 8:16 AM documented in this encounter Plan of Treatment Upcoming Encounters Date Type Department Care Team (Late st Contact Info) Description 03/06/2025 2:00 PM EDT Office Visit Pain Management [address] [place] [address] Basilio Maddox MD [address] [place], [place] [id number] AFTER MRI documented as of this encounter Procedures Procedure Name Priority Date/Time Associated Diagnosis Comments MRI LUMBAR SPINE WO IVCON Routine 02/21/2025 8:20 AM EDT Midline low back pain without sciatica, unspecified chronicity documented in this encounter Results * MRI LUMBAR SPINE WO IVCON (02/21/2025 8:20 AM EDT) Anatomical Region Laterality Modality L-spine Magnetic Resonan ce 02/21/2025 8:20 AM EDT Impressions 02/21/2025 8:30 AM EDT IMPRESSION: Scoliosis and spondylosis as detailed. No high-grade canal or foraminal narrowing. Mild left lateral recess narrowing at L2-L3 which may impinge on the descending left L3 nerve root. The visible chronic facet degenerative change and chronic malalignment may contribute to mechanical pain. Anatomic Lumbar Variant: None. L4-5 is considered the level of the iliac crest and assume there are 5 lumbar-type vertebrae. Director Data Management: PSCB Transcribe Date/Time: Feb 21 2025 8:20A Dictated by : MIKAELA ABREU MD This examination was interpreted and the report reviewed and electronically signed by: MIKAELA ABREU MD on Feb 21 2025 8:28AM EST Narrative 02/21/2025 8:30 AM EDT * * *Final Report* * * DATE OF EXAM: Feb 21 2025 8:20AM LNM 0303 - MRI LUMBAR SPINE WO IVCON / PROCEDURE REASON: Midline low back pain without sciatica, unspecified chronicity * * * * Physician Interpretation * * * * EXAMINATION: MRI LUMBAR SPINE WO IVCON CLINICAL HISTORY: Midline low back pain without sciatica, unspecified chronicity. This information is taken directly from the order selector system. TECHNIQUE: Routine lumbosacral spine MR protocol without gadolinium. MQ: [id number]_3 COMPARISON: Lumbar plain films 01/23/2025. RESULT: Counting reference: Lumbosacral junction. For the purposes of this report, L4-5 is considered the level of the iliac crest and assume there are 5 lumbar-type vertebrae. Anatomic variant: None. Localizer images: Obesity. No paraspinal masses are evident within the resolving capacity of the scout professional sports view. Alignment: Scoliotic curvature convex right, apex L3. In the sagittal plane, there is 2 mm retrolisthesis of T12 over L1, L1 over L2, 3 mm retrolisthesis L2 over L3, trace grade 1 anterolisthesis L4 on L5. Overall, this creates accentuated lumbar lordosis. Bone marrow signal/fracture: Multilevel facet degenerative change. No evidence for pars fracture. No vertebral body collapse or bony retropulsion. Conus: Distal cord terminates normally at the lower one third of L1. Paraspinal soft tissues: As above. Lower thoracic spine: Visualized lower thoracic canal and foramina are patent. L1-L2: Slight retrolisthesis, disc bulging, and mild facet degenerative change. Canal and foramina remain patent. L2-L3: Slight retrolisthesis, minimal disc bulging, and moderate facet degenerative change. Central thecal sac is grossly patent. Mild left lateral recess narrowing which may impinge on the descending left L3 nerve root. Foramina are patent. L3-L4: Slight retrolisthesis, disc bulging, and facet degenerative change. Slight indentation of dorsal-lateral margin of the thecal sac on the left, but the canal is otherwise patent, and there is no gross compression of either descending L4 nerve root. Foramina are patent. L4-L5: Minimal anterolisthesis, prominent facet degenerative change. Indentation of dorsal-lateral margin of the thecal sac, causing mild overall narrowing. No gross compression of either descending L5 nerve root. (6:32). Foramina remain patent. L5-S1: Canal and foramina are patent Sacrum and iliac wings: No evidence for fracture. Procedure Note Provider, [facility] - 02/21/2025 * * *Final Report* * * DATE OF EXAM: Feb 21 2025 8:20AM LNM 0303 - MRI LUMBAR SPINE WO IVCON / PROCEDURE REASON: Midline low back pain without sciatica, unspecified chronicity * * * * Physician Interpretation * * * * EXAMINATION: MRI LUMBAR SPINE WO IVCON CLINICAL HISTORY: Midline low back pain without sciatica, unspecified chronicity. This information is taken directly from the order selector system. TECHNIQUE: Routine lumbosacral spine MR protocol without gadolinium. MQ: [id number] COMPARISON: Lumbar plain films 01/23/2025. RESULT: Counting reference: Lumbosacral junction. For the purposes of this report, L4-5 is considered the level of the iliac crest and assume there are 5 lumbar-type vertebrae. Anatomic variant: None. Localizer images: Obesity. No paraspinal masses are evident within the resolving capacity of the scout professional sports view. Alignment: Scoliotic curvature convex right, apex L3. In the sagittal plane, there is 2 mm retrolisthesis of T12 over L1, L1 over L2, 3 mm retrolisthesis L2 over L3, trace grade 1 anterolisthesis L4 on L5. Overall, this creates accentuated lumbar lordosis. Bone marrow signal/fracture: Multilevel facet degenerative change. No evidence for pars fracture. No vertebral body collapse or bony retropulsion. Conus: Distal cord terminates normally at the lower one third of L1. Paraspinal soft tissues: As above. Lower thoracic spine: Visualized lower thoracic canal and foramina are patent. L1-L2: Slight retrolisthesis, disc bulging, and mild facet degenerative change. Canal and foramina remain patent. L2-L3: Slight retrolisthesis, minimal disc bulging, and moderate facet degenerative change. Central thecal sac is grossly patent. Mild left lateral recess narrowing which may impinge on the descending left L3 nerve root. Foramina are patent. L3-L4: Slight retrolisthesis, disc bulging, and facet degenerative change. Slight indentation of dorsal-lateral margin of the thecal sac on the left, but the canal is otherwise patent, and there is no gross compression of either descending L4 nerve root. Foramina are patent. L4-L5: Minimal anterolisthesis, prominent facet degenerative change. Indentation of dorsal-lateral margin of the thecal sac, causing mild overall narrowing. No gross compression of either descending L5 nerve root. (6:32). Foramina remain patent. L5-S1: Canal and foramina are patent Sacrum and iliac wings: No evidence for fracture. IMPRESSION IMPRESSION: Scoliosis and spondylosis as detailed. No high-grade canal or foraminal narrowing. Mild left lateral recess narrowing at L2-L3 which may impinge on the descending left L3 nerve root. The visible chronic facet degenerative change and chronic malalignment may contribute to mechanical pain. Anatomic Lumbar Variant: None. L4-5 is considered the level of the iliac crest and assume there are 5 lumbar-type vertebrae. Director Data Management: PSCB Transcribe Date/Time: Feb 21 2025 8:20A Dictated by : MIKAELA ABREU MD This examination was interpreted and the report reviewed and electronically signed by: MIKAELA ABREU MD on Feb 21 2025 8:28AM EST us Basilio Maddox MD MRI-PAMA Final Res ult documented in this encounter Visit Diagnoses Diagnosis Midline low back pain without sciatica, unspecified chronicity documented in this encounter Care Teams Supervisor Communications And Signals Relationship Specialty Start Date End Date Gela Bustillo CNP [address] [address] PCP - General Family Medicine 03/10/22 Gela Bustillo CNP [address] [address] Referring Family Medicine 10/02/21 documented as of this encounter
--- NOTE | 2025-03-03 08:00 | CA_ITS ---
Patient Name: GRACIE FAROOQ MR#: [id number] : 1950 Exam Date: 03/03/2025 Ordering Doctor: LYNDSAY DUNBAR ECHOCARDIOGRAM REPORT PROCEDURE: CA ECHO DOPPLER COMPLETE INDICATIONS: Shortness of breath COMPARISON: None. DESCRIPTION: COMPLETE ECHOCARDIOGRAM Real-time transthoracic echocardiography with 2D, M-mode, spectral and color flow Doppler performed. QUALITY: Technical quality was good. LEFT VENTRICLE: Normal chamber size. Proximal septal hypertrophy (sigmoid septum). Normal systolic function. LV EF: Normal left ventricular ejection fraction, (60%). DIASTOLIC: Normal diastolic function. ATRIAL SEPTUM: Visually appears intact. LEFT ATRIUM: Normal chamber size. RIGHT ATRIUM: Normal chamber size. RIGHT VENTRICLE: Normal chamber size. Normal right ventricular systolic function. TRICUSPID VALVE: Normal mobility and thickness. No stenosis with trivial regurgitation. No evidence of pulmonary hypertension. RVSP 22 mmHg MITRAL VALVE: Normal mobility and thickness. No evidence of mitral valve stenosis. There is no mitral annular calcification. Trivial mitral regurgitation. AORTIC VALVE: Normal trileaflet appearance. No visible sclerosis. Normal leaflet mobility. No evidence of aortic valve stenosis. No aortic regurgitation. AORTIC ROOT: Normal diameter and appearance, measuring 2.7 cm. PULMONIC VALVE: Normal thickness and mobility. No stenosis. Trivial regurgitation. PERICARDIUM: No evidence of pericardial effusion. IVC: Collapses with inspiration. PLEURA: CONCLUSION: 1. Normal left ventricular size and systolic function. LVEF is estimated at 60%. 2. Normal right ventricular size and systolic function. 3. Normal diastolic function. 4. No significant valvular dysfunction. 5. Normal right-sided pressures. Adult Echocardiography Procedure Report Left Ventricle LVEDD (3.7 - 5.6 cm): 3.91 cm LVESD (2.2 - 4.0 cm): 2.98 cm LVIVS thickness (0.6 - 1.2 cm): 1.20 cm LVPW thickness (0.5 - 1.0 cm): 0.66 cm e': 0.07 m/s E - e': 8.92 LVOT Max Gradient: 3.41 mm[Hg] LVOT Area (cm2): 0.92 m/s Peak Velocity (LVOT): 0.92 m/s Mean Velocity (LVOT): 0.69 m/s LVOT Diameter 2.00 cm Left Ventricular Ejection Fraction: 60% Left Atrium LA Volume Index (2D A2C): 28.28 ml/m2 Left Atrium Systolic Dimension: 3.02 cm Mitral Valve MV E to A Ratio: 0.70 Mitral Valve A-Wave Peak Velocity: 0.92 m/s Mitral Valve E-Wave Peak Velocity: 0.64 m/s Right Ventricle Aorta AO Root Diam: 2.73 cm Aortic Valve AoV Area (Peak Alber): 2.17 cm2, 2.17 cm2 AoV Area (VTI): 2.07 cm2, 2.07 cm2 Peak Velocity(Antegrade Flow): 1.34 m/s Peak Gradient(Antegrade Flow): 7.17 mm[Hg] Mean Velocity(Antegrade Flow): 0.92 m/s Mean Gradient(Antegrade Flow): 3.81 mm[Hg] Velocity Time Integral: 33.17 cm Tricuspid Valve Peak Velocity (Regurgitant Flow): 2.10 m/s, 2.21 m/s Pulmonic Valve Peak Gradient: 2.83 mm[Hg], 3.35 mm[Hg] Right Atrium Right Atrium Systolic Pressure: 33.12 ml, 33.12 ml Dictated by: Kalpesh Jamison M.D. on 03/03/2025 at 17:59 Approved by: Kalpesh Jamison M.D. on 03/03/2025 at 18:03
--- OUTSIDE RECORDS SUMMARY | 2025-03-03 08:04 | XMS_ITS | Encounter Summary ---
Author Organization [facility] Address [address] [place], [place] [id number] Care Team Providers Care Manager Party Name Role Phone Gela Bustillo CNP Unavailable [phone] Gela Bustillo FREDI Primary Care Provider [phone] Source Comments In the event this information is protected by the Federal Confidentiality of Alcohol and Drug AbusePatient Records regulations: The Federal rules restrict any use of the information to criminally investigate or prosecute any alcohol or drug abuse patient.[facility] Reason for Visit * Reason Comments Radiology XR Encounter Details Date Type Department Care Team (Late st Contact Info) Description 04/13/2023 Radiology Radiology [address] [place] [address] Georgia Walls RT(R) Radiology XR Social History Tobacco Use Types Packs/Day Years Used Date Smoking Tobacco: Former Cigarettes 0.2 1 1 973 - 1973 Smokeless Tobacco: Never Alcohol Use Standard Drinks/Week [...] often do you attend chur ch or synagogue services? More than 4 times per year 06/29/2022 Do you belong to any clubs o r organizations such as rastafari groups, unions, fraternal or athletic groups, or [...] Answer Date Recorded PHQ-2 score 4 04/06/2023 [facility] of Occupat ional [facility] - Occupational Stress Questionnaire Answer Date [...] place to sleep or slept in a nursing home (including now)? No 03/18/2023 Area Deprivation Index Answer Date Anthony rded National Score (1-100), lower number is lower ri sk 79 10/14/2022 State Score (1-10), lower number is lower risk 7 10/14/2022 Data from: https://www.neighborhoodatlas.medicine.[facility].edu/. Last address used for calculation [...] 2:00 PM EDT Office Visit Pain Management [address] [place] [address] Basilio Maddox MD [address] [facility] [place] [address] AFTER MRI documented as of this encounter Visit Diagnoses Not on filedocumented in this encounter Care Teams Manager Party Relationship Specialty Start Date End Date Gela Bustillo CNP [address] [place] [address] PCP - General Family Medicine 03/10/22 Gela Bustillo CNP [address] [place] [address] Referring Family Medicine 10/02/21 documented as of this encounter
--- OUTSIDE RECORDS SUMMARY | 2025-03-03 08:04 | XMS_ITS | Clinical Summary ---
Author Organization [facility] Address [address] [place] [address] Care Team Providers Care Senior Etl Developer Name Role Phone Ijeomatricia Gela RAI Unavailable [phone] KenyGela FREDI Primary Care Provider Allergies No known active allergies Medications Cholecalciferol , Vitamin D3, 50 mcg (2,000 unit) cap Take 2,000 Units by mouth once daily. 12/25/2021 Active turmeric 400 mg cap Take 1 capsule by mouth once daily. Active vitamin b complex (B-COMPLEX) tab 1 tablet once daily. 10/16/2024 Active Active Problems Problem Noted Date Diagnosed Date Right sciatic nerve pain 01/11/2025 Sacroiliitis 12/07/2024 Piriformis syndrome, right 03/28/2024 Trochanteric bursitis of [...] Encounters Date Type Department Care Team Description 02/21/2025 7:20 AM EDT - 02/21/2025 11:59 PM EDT Hospital Encounter Radiology [address] [place] [address] Midline low back pain without sciatica, unspecified chronicity [M54.50] Discharge Disposition: Home 02/14/2025 Travel 02/14/2025 Patient Msg Pain Management [address] [place] [address] Basilio Maddox MD Questionnaire Submission 01/23/2025 8:30 AM EDT Office Visit [facility] [address] [facility] [place] [address] Basilio Maddox MD Lumbar facet arthropathy (Primary Dx); Pain in right hip; Greater trochanteric bursitis of right hip; Sacroiliitis; Midline low back pain without sciatica, unspecified chronicity; S/P hip replacement, right 01/23/2025 8:18 AM EDT - 01/23/2025 11:59 PM EDT Hospital Encounter Radiology [address] [place] [address] Low back pain, unspecified back pain laterality, unspecified chronicity, unspecified whether sciatica present [M54.50] Discharge Disposition: Home 01/23/2025 Radiology Radiology [address] [facility] [place] [address] Bethany Ramachandran RT(R) Radiology XR 01/18/2025 Patient Msg Pain Management [address] [facility] [place] [address] Basilio Maddox MD PAIN QUESTIONNAIRE 01/18/2025 Telephone Pain Management [address] [facility] [place] [address] Basilio Maddox MD Appointment 01/11/2025 11:30 AM EDT Office Visit Orthopaedics [address] [facility] [place] [id number] Aurora Amaya PA-C Sacroiliitis (Primary Dx); Right sciatic nerve pain; S/P hip replacement, right 12/29/2024 3:40 PM EDT Office Visit Orthopaedics [address] [place], [place] [address] [address] Shaneka Grant MD Sacroiliitis (Primary Dx) 12/29/2024 Travel 12/28/2024 Travel 12/07/2024 12:30 PM EDT Office Visit Orthopaedics [address] [place] [address] [place] [address] Aurora Amaya PA-C Trochanteric bursitis of right hip (Primary Dx); Sacroiliitis 12/07/2024 Travel from Last 3 Months Immunizations Immunization [...] quadrivalent, PF (FLUAD QUAD) 03/25/2022,03/01/2021 novel influenza (F6K8-30) vaccine, PF 05/08/2009 pneumococcal conjugate (PCV1 3) [...] Former Cigarettes 0.2 1 1 973 - 9048 Smokeless Tobacco: Never Tobacco Cessation:Counseling Given: Not [...] week 06/29/2022 How often do you attend formerly [facility] or zoroastrianism services? More than 4 times per year 06/29/2022 Do you belong to any clubs o r organizations such as confucianist groups, unions, fraternal or athletic groups, or [...] Answer Date Recorded PHQ-2 score 0 01/04/2025 [facility] - [...] is lower risk 7 10/14/2022 Data from: https://www.neighborhoodatlas.medicine.[facility].edu/. Last address used for calculation [...] Pressure 108/56 03/19/2023 11:44 AM EDT Pulse 62 01/23/2025 8:57 AM EDT Temperature 36.7 C (98.1 F) 03/19/2023 11:44 AM EDT Respiratory Rate 16 03/19/2023 11:44 AM EDT Oxygen Saturation 99% 01/23/2025 8:57 AM EDT Inhaled Oxygen Concentration - - Weight 71.2 kg (157 lb) 01/23/2025 8:57 AM EDT Height 157.5 cm (5' 2 ) 01/23/2025 8:57 AM EDT Body Mass Index 28.72 01/23/2025 8:57 AM EDT Plan of Treatment Upcoming Encounters Date Type Department Care Team (Late st Contact Info) Description 03/06/2025 2:00 PM EDT Office Visit Pain Management [address] [facility] [place] [address] Basilio Maddox MD [address] [place] [address] AFTER MRI Health Maintenance Due Date Last Done Comments Anxiety Screening 1969 Depression Screening 1969 Hepatitis C Screening 1969 CT Colonography 1996 Cologuard (FIT-DNA) 1996 Colonoscopy 1996 Colorectal Cancer Screening 1996 Fecal Occult Blood 1996 Lipid Screening 1996 Sigmoidoscopy 1996 Bone Density Screening 2016 Medicare Annual Wellness Visit 10/16/2016 Mammogram Screening 06/21/2019 06/21/2018, 06/21/2018, 06/21/2018 Annual PCP Team Chronic Dise ase Visit 06/30/2023 06/30/2022 Serum Creatinine 03/19/2024 03/19/2023, 05/2022, 01/07/2023 Advance Directive Discussion 05/18/2024 Covid-19 Vaccine (8 - 5-2 6 season) 2025 02/04/2024, 02/18/2023, 03/25/2022, Additional history exists Influenza Vaccine (#1) 2025 , 02/18/2023, 06/03/2022, Additional history exists Diabetes Screening 03/19/2026 03/19/2023, 1 05/18/2022, 01/07/2023, Additional history exists DTaP,Tdap,Td Vaccine (2 - Td or Tdap) 04/07/2029 04/07/2019, 04/07/2019 Shingrix Vaccine Completed 07/20/2018, 03/23/2018 Pneumococcal Vaccine: 50+ Completed 2022, 04/07/2019, 2017 RSV Vaccine Completed 04/29/2023 Medical Devices Implanted Type Area Fire Alarm Mechanic Device Identifier Shelf Expiration Date Model / Serial / Lot Cornea Tissue Pre-Loaded Dmek - [id number] Implanted:Qty: 1 on 03/17/2022 by Alex Combs MD at [facility] Cornea Left: Eye [employer] 03/26/2022 CORNEA TISSUE FEE / [id number] / Cornea Tissue Pre-Loaded Dmek - [id number] Implanted:Qty: 1 on 04/14/2022 by Alex Combs MD at [facility] Cornea Right: Eye [employer] 04/20/2022 CORNEA TISSUE FEE / [id number] / Gas Ispan Constellation Intraocular Vision System Sf6 125gm - [id number] Implanted:Qty: 1 on 03/17/2022 by Alex Combs MD at [facility] Implant Left: Eye [employer] 10/16/2023 [id number] / / [id number] Gas Ispan Constellation Intraocular Vision System Sf6 125gm - [id number] Implanted:Qty: 1 on 04/14/2022 by Alex Combs MD at [facility] Implant [employer] 12/16/2023 [id number] / / [id number] Lens Iol 0d +21 Eloisa Uv Abs - [id number] Implanted:Qty: 1 on 03/17/2022 at [facility] Intraocular Lens Left: Eye [employer] 10/30/2025 SA60WF.210 / [id number] / Lens Iol 0d +21.5 Eloisa Uv Abs - [id number] Implanted:Qty: 1 on 04/14/2022 at [facility] Intraocular Lens Right: Eye [employer] 11/09/2026 SA60WF.215 / [id number] / Head V40 Lfit 22mm +3mm Offset Taper Cocr Femoral Primary Hip - [id number] Implanted:Qty: 1 on 03/17/2023 at [facility] Joint - Hip Right: Bone - Hip [employer] 11/05/2027 [id number] / / [id number] Shell Trident Ii 46mm C Tritanium Acetabular 3 Screw Hole Cluster Sterile - [id number] Implanted:Qty: 1 on 03/17/2023 at [facility] Joint - Hip Right: Bone - Hip [employer] 10/08/2027 [id number] / / [id number] Liner Mdm 36mm C Cocr Acetabular 2 Mobility Modular Hip - [id number] Implanted:Qty: 1 on 03/17/2023 at [facility] Joint - Hip Right: Bone - Hip [employer] 01/14/2028 [id number] / / [id number] Estefany Adm X3 Ins Estefany Adm X3 Ins 42 - [id number] Implanted:Qty: 1 on 03/17/2023 at [facility] Joint - Hip Right: Bone - Hip [employer] 08/11/2027 [id number] / / [id number] Stem Accolade Ii V40 132d 2 33mm Offset Purefix Titanium Plasma [place] 99mm - [id number] Implanted:Qty: 1 on 03/17/2023 at [facility] Joint Right: Bone - Hip [employer] 11/01/2025 [id number] / / [id number] Procedures Procedure Name Priority Date/Time Associated Diagnosis Comments MRI LUMBAR SPINE WO IVCON Routine 02/21/2025 8:20 AM EDT Midline low back pain without sciatica, unspecified chronicity XR LUMBAR LIMITED 2V AP/LAT Routine 01/23/2025 8:48 AM EDT Low back pain, unspecified back pain laterality, unspecified chronicity, unspecified whether sciatica present ARTHROCENTESIS ASPIR&/INJ MAJOR JT/BURSA W/US Routine 12/29/2024 4:55 PM EDT Sacroiliitis US HIP-INJECTION RT (POC) BERNARD USE ONLY Routine 12/29/2024 4:41 PM EDT Sacroiliitis ARTHROCENTESIS ASPIR&/INJ MAJOR JT/BURSA W/O US Routine 12/07/2024 1:12 PM EDT Sacroiliitis Trochanteric bursitis of right hip BASIC METABOLIC PANEL Routine 03/19/2023 3:37 AM EDT from Last 3 Months or Most Recently Relevant to Health Maintenance Results * MRI LUMBAR SPINE WO IVCON [...] and assume there are 5 lumbar-type vertebrae. Electrical And Radio Mechanic: [facility] Transcribe Date/Time: Feb 21 2025 8:20A Dictated [...] This information is taken directly from the special order jeweler system. TECHNIQUE: Routine lumbosacral spine MR protocol without gadolinium. MQ: [id number]_3 COMPARISON: Lumbar plain films 01/23/2025. RESULT: Counting reference: Lumbosacral junction. For the purposes of this report, L4-5 is considered the level of the iliac crest and assume there are 5 lumbar-type vertebrae. Anatomic variant: None. Localizer images: Obesity. No paraspinal masses are evident within the resolving capacity of the heavy equipment plumbing supervisor view. Alignment: Scoliotic curvature convex right, apex [...] No evidence for fracture. Procedure Note Provider, [facility] [place] - 02/21/2025 * * *Final Report* * [...] This information is taken directly from the special order jeweler system. TECHNIQUE: Routine lumbosacral spine MR protocol without gadolinium. MQ: [id number]_3 COMPARISON: Lumbar plain films 01/23/2025. RESULT: Counting reference: Lumbosacral junction. For the purposes of this report, L4-5 is considered the level of the iliac crest and assume there are 5 lumbar-type vertebrae. Anatomic variant: None. Localizer images: Obesity. No paraspinal masses are evident within the resolving capacity of the heavy equipment plumbing supervisor view. Alignment: Scoliotic curvature convex right, apex [...] and assume there are 5 lumbar-type vertebrae. Electrical And Radio Mechanic: [facility] Transcribe Date/Time: Feb 21 2025 8:20A Dictated by : MIKAELA ABREU MD This examination was interpreted and the report reviewed and electronically signed by: MIKAELA BAREU MD on Feb 21 2025 8:28AM EST us Basilio Maddox MD MRI-PAMA Final Res ult * XR LUMBAR LIMITED 2V AP/LAT (01/23/2025 8:48 AM EDT) Anatomical Region Laterality Modality L-spine Other 01/23/2025 8:48 AM EDT Impressions 01/23/2025 10:17 AM EDT IMPRESSION: 1. Lumbar dextroscoliosis. 2. Multilevel lumbar spondylosis. 3. Lower lumbar spine degenerative facet arthrosis. Electrical And Radio Mechanic: [facility] Transcribe Date/Time: Jan 23 2025 10:14A Dictated by : SARAH ROBERTO MD This examination was interpreted and the report reviewed and electronically signed by: SARAH ROBERTO MD on Jan 23 2025 10:15AM EST Narrative 01/23/2025 10:17 AM EDT * * *Final Report* * * DATE OF EXAM: Jan 23 2025 8:48AM [id number] - XR LUMBAR 2V AP/LAT / PROCEDURE REASON: Low back pain, unspecified back pain laterality, unspecified chronicity, unspeci * * * * Physician Interpretation * * * * Lumbar spine x-rays: HISTORY: Pain TECHNIQUE: AP and lateral views were obtained. COMPARISON: None RESULT: Counting reference: Lumbosacral junction. For the purposes of this report, L4-L5 is considered the level of the iliac crest and assume there are 5 lumbar-type vertebrae. Anatomic variant: None. Dextroscoliosis of the lumbar spine is present. There are 3 mm of anterior listhesis of L4 upon L5 secondary to facet degenerative changes. Facet hypertrophic changes are present at the L4-L5 and L5-S1 levels. Mild disc space narrowing and mild to moderate osteophytosis are present at L1-L2. The remaining lumbar disc spaces are maintained. Small osteophytes are present at L2-L3 and L3-L4. Procedure Note Provider, [facility] [place] - 01/23/2025 * * *Final Report* * * DATE OF EXAM: Jan 23 2025 8:48AM [id number] - XR LUMBAR 2V AP/LAT / PROCEDURE REASON: Low back pain, unspecified back pain laterality, unspecified chronicity, unspeci * * * * Physician Interpretation * * * * Lumbar spine x-rays: HISTORY: Pain TECHNIQUE: AP and lateral views were obtained. COMPARISON: None RESULT: Counting reference: Lumbosacral junction. For the purposes of this report, L4-L5 is considered the level of the iliac crest and assume there are 5 lumbar-type vertebrae. Anatomic variant: None. Dextroscoliosis of the lumbar spine is present. There are 3 mm of anterior listhesis of L4 upon L5 secondary to facet degenerative changes. Facet hypertrophic changes are present at the L4-L5 and L5-S1 levels. Mild disc space narrowing and mild to moderate osteophytosis are present at L1-L2. The remaining lumbar disc spaces are maintained. Small osteophytes are present at L2-L3 and L3-L4. IMPRESSION IMPRESSION: 1. Lumbar dextroscoliosis. 2. Multilevel lumbar spondylosis. 3. Lower lumbar spine degenerative facet arthrosis. Electrical And Radio Mechanic: [facility] Transcribe Date/Time: Jan 23 2025 10:14A Dictated by : SARAH ROBERTO MD This examination was interpreted and the report reviewed and electronically signed by: SARAH ROBERTO MD on Jan 23 2025 10:15AM EST us Basilio Maddox MD RAD-PAMA Final Res ult * ARTHROCENTESIS ASPIR&/INJ MAJOR JT/BURSA W/US (12/29/2024 4:55 PM EDT) Narrative Shaneka Grant MD - 12/29/2024 4:55 PM EDT Shaneka Grant MD 12/29/2024 5:32 PM Large Joint Arthro/Inj (R SI joint) 12/29/2024 4:55 PM The procedure site was prepped in the usual sterile fashion. Details:Musculoskeletal ultrasound was utilized to successfully localize placement of the injection needle at the appropriate site. Ultrasound images demonstrating local vasculature and demonstrating injection of solution were saved. Medications: 6 mg betamethasone acetate-betamethasone sodium phosphate 6 mg/mL Anesthetics: 5 mL lidocaine (PF) 10 mg/mL (1 %); 3 mL ROPivacaine (PF) 5 mg/mL (0.5 %) Outcome: Tolerated well, no immediate complications Post-injection instructions were reviewed with the patient and the patient voiced understanding of these instructions. Informed Consent Consent Obtained: Verbal [place] Protocol A moment to CARE was completed. SIGN IN Personnel directly involved with the procedure wore the appropriate PPE. Special Equipment: Yes Patient/Surrogate Stated/Verified: Patient name, Date of , Relevant allergies and Intended procedure TIME OUT Relevant labs, photos, and/or imaging studies have been reviewed. Intended patient and procedure match source documents. Consent obtained and matches the intended procedure. Correct side/site marked and visible. Medications required for procedure verified. No fire risk assessment and interventions applicable. No implant(s) inserted. SIGN OUT No specimen collected. All instruments, equipment, possible retained foreign bodies accounted for. The post-procedure POC has been communicated to the patient or surrogate. No post-procedure POC communication to the patient's multidisciplinary team (including the bedside nurse for hospitalized patients) applicable. us Shaneka Grant MD PROCEDURE Final Result * US HIP-INJECTION RT (POC) BERNARD USE ONLY (12/29/2024 4:41 PM EDT) 12/29/2024 4:41 PM EDT us Shaneka Grant MD IMAGES Final Result [facility] * ARTHROCENTESIS ASPIR&/INJ MAJOR JT/BURSA W/O US (12/07/2024 1:12 PM EDT) Narrative Aurora Amaya PA-C - 12/07/2024 1:12 PM EDT Aurora Amaya PA-C 12/15/2024 12:46 PM Large Joint Arthro/Inj: R greater trochanteric bursa 12/07/2024 1:12 PM The procedure site was prepped in the usual sterile fashion. Site: R greater trochanteric bursa Medications: 80 mg triamcinolone acetonide 40 mg/mL Anesthetics: 8 mL lidocaine (PF) 10 mg/mL (1 %) Outcome: Tolerated well, no immediate complications Post-injection instructions were reviewed with the patient and the patient voiced understanding of these instructions. Informed Consent Consent Obtained: Verbal [place] Protocol A moment to CARE was completed. SIGN IN Personnel directly involved with the procedure wore the appropriate PPE. Special Equipment: N/A Patient/Surrogate Stated/Verified: Patient name, Date of , Relevant allergies and Intended procedure TIME OUT Relevant labs, photos, and/or imaging studies have been reviewed. Consent documented and matches the intended procedure. Correct side/site marked and visible. Medications required for procedure verified. No fire risk assessment and interventions applicable. No implant(s) inserted. SIGN OUT No specimen collected. All instruments, equipment, possible retained foreign bodies accounted for. The post-procedure POC has been communicated to the patient or surrogate. Third green party verified by Danna Amin MA. us Aurora Amaya PA-C PROCEDURE Final Result * (ABNORMAL) BASIC METABOLIC PNL (03/19/2023 3:37 AM EDT) Glucose 121(H) 74 - 99 mg/dL 03/19/2023 4:35 AM EDT [facility] Comment: The [place] Diabetes Association (ADA) provides guidance for cutoff [...] Standards of Medical Care in Diabetes 2016, [place] Diabetes Association. Diabetes Care. 2016.39(Suppl 1). BUN 15 7 - 21 mg/dL 03/19/2023 4:35 AM [facility] Creatinine 0.92 0.58 - 0.96 mg/dL 03/19/2023 4:35 AM [facility] Sodium 127(L) 136 - 144 mmol/L 03/19/2023 4:35 AM [facility] Potassium 4.3 3.7 - 5.1 mmol/L 03/19/2023 4:35 AM [facility] Chloride 92(L) 97 - 105 mmol/L 03/19/2023 4:35 AM [facility] CO2 27 22 - 30 mmol/L 03/19/2023 4:35 AM [facility] Anion Gap 8(L) 9 - 18 mmol/L 03/19/2023 4:35 AM [facility] Calcium, Total 7.9(L) 8.5 - 10.2 mg/dL 03/19/2023 4:35 AM [facility] Estimated Glomerular Filtration Rate 67 >=60 mL/min/1. 73m 03/19/2023 4:35 AM [facility] Comment:Estimated Glomerular Filtration Rate (eGFR) is [...] us Aurora Amaya PA-C LABORATORY Final Result [facility] [address] [facility] [place] [address], [place] from Last 3 Months or Most Recently Relevant to Health Maintenance Insurance MEDICARE Advance Directives Documents on File Type Date Recorded Patient Class B Driver Expl anation Advance Directive(s) 06/30/2022 1:49 PM Care Teams Senior Etl Developer Relationship Specialty Start Date End Date Gela Bustillo CNP [address] [address] PCP - General Family Medicine 03/10/22 Gela Bustillo CNP [address] [address] Referring Family Medicine 10/02/21
--- OUTSIDE RECORDS SUMMARY | 2025-03-03 08:04 | XMS_ITS | Encounter Summary ---
Author Organization [facility] Address [address] [place], [place] [address] Care Team Providers Care Ore Charger Name Role Phone Gela Bustillo CNP Unavailable [phone] Gela Bustillo FREDI Primary Care Provider [phone] Source Comments In the event this information is protected by the Federal Confidentiality of Alcohol and Drug AbusePatient Records regulations: The Federal rules restrict any use of the information to criminally investigate or prosecute any alcohol or drug abuse patient.[facility] Reason for Visit * Reason Comments Radiology XR Encounter Details Date Type Department Care Team (Late st Contact Info) Description 03/28/2024 Radiology Radiology [address] [place] [address] Henny Kern RT(R) Radiology XR Social History [...] 06/29/2022 How often do you attend chur or caodaism services? More than 4 times per year 06/29/2022 Do you belong to any clubs o r organizations such as episcopalian groups, unions, fraternal or athletic groups, or [...] Answer Date Recorded PHQ-2 score 0 03/22/2024 [facility] - Occupational Stress Questionnaire Answer Date [...] place to sleep or slept in a mcc (including now)? No 03/18/2023 Area Deprivation Index Answer Date Anthony rded National Score (1-100), lower number is lower ri sk 79 10/14/2022 State Score (1-10), lower number is lower risk 7 10/14/2022 Data from: https://www.neighborhoodatlas.medicine.[facility].edu/. Last address used for calculation [...] PATIENT PRESENTS WITH AN IMPLANTABLE OR ATTACHED STOVE INSTALLER: No RADIOLOGY DEPARTMENT: General X-ray: Exam(s) Completed: Pelvis X-Ray: Pelvis General AP PERIPHERAL IV DATA: Not applicable SIGNED BY: RT Sarai(R) March 28, 2024 8:11 AM documented in this encounter Plan of Treatment Upcoming Encounters Date Type Department Care Team (Late st Contact Info) Description 03/06/2025 2:00 PM EDT Office Visit Pain Management [address] [facility] [place] [address] Basilio Maddox MD [address] [facility] [place] [address] AFTER MRI documented as of this encounter Visit Diagnoses Not on filedocumented in this encounter Care Teams Ore Charger Relationship Specialty Start Date End Date Gela Bustillo CNP [address] [place] [address] PCP - General Family Medicine 03/10/22 Gela Bustillo CNP [address] [address] Referring Family Medicine 10/02/21 documented as of this encounter
--- OUTSIDE RECORDS SUMMARY | 2025-03-03 08:04 | XMS_ITS | Patient Health Record ---
Author Organization [facility] Address [address] [place] [address] Care Team Providers Care Sand Mixer Operator Name Role Phone [facility] [...] review a nd pick correct strength[facility]. If intended option is not shown, discontinue and re-order from Quick Search* Active predniSONE 20 MG 1 tab(s) orally once a day; Duration: 5 days 02/15/2018 Active Immunizations Vaccine Route [...] Coverage End Date [place] [address] [place] [address] [id number] GRACIE Jones Self - patient is the insured [place] SENIOR CARE MEDICARE SUPPLEMENT ADMINISTRAT [facility] [address] [address] [place] [address] [phone] [id number] GRACIE Jones Self - patient is the insured Medical (General) History Medical History History ICD Code Macular Degeneration Surgical History Surgery Date(Month/Year) C-sections x2 Spine Hospitalization History Reason Date(Month/Year) See above
--- OUTSIDE RECORDS SUMMARY | 2025-03-03 08:04 | XMS_ITS | Clinical Summary ---
Author Organization [facility] Address [address] [place] [address] Care Team Providers Care Electrostatic Paint Operator Name Role Phone Unallocated, Noms Provider MD Primary Care Provi magali Gela Bustillo WARE CLEANER Unavailable [phone] Allergies Active Allergy Reactions Criticality Noted Date Comments Hydrocodone-Acetaminophen Nausea Only Medium 3 Mosquito (Diagnostic) Swelling 01/06/2023 Oxycodone Nausea Only Medium 01/06/2023 Propofol Unknown 01/06/2023 Medications Jublia 10 % solutionIndicat ions:Onychomyco sis APPLY ONCE TOPICALLY DAILY 4 mL 3 5 Active Active Problems Problem Noted Date Diagnosed Date Dizziness 02/16/2024 Assessment & Plan (02/16/2024 10:48 AM EDT): --- cervicogenic dizziness. PT 2nd opinion - [facility]. Cervical paraspinal muscle spasm 02/16/2024 Assessment & Plan (02/16/2024 10:51 AM EDT): PT. Add Mg. No clear need for Rx muscle relaxant, but pt could have tizanidine 4 if/when desired. Encounters Date Type Department Care Team Description 12/08/2024 Telephone [facility] [address] [facility] [address] [place] [id number] Tamara Peres, PT re: PT 12/06/2024 10:30 AM EDT Treatment [facility] [address] [facility] [address] [place] [address] Tamara Peres, PT Primary osteoarthritis of right hip (Primary Dx); Trochanteric bursitis of right hip; Piriformis syndrome, right 12/06/2024 Bamboo flowsheet [facility] [address] [facility] [address] [place] [address] Tamara Peres, PT 12/06/2024 Travel 12/05/2024 Travel from Last 3 Months Family History [...] Care Team (Late st Contact Info) Description 05/31/2025 2:15 PM EST Procedure Visit [facility] [address] [facility] [address] [place] [phone] Catherine Vega DPM [address] [facility] [address] [place] [address] Health Maintenance Due Date Last Done Comments CT Colonography 1950 Colonoscopy 1950 Colorectal Cancer Screening 1950 FIT-DNA 1950 FIT 1950 FOBT 1950 Sigmoidoscopy 1950 Mammogram 06/21/2019 06/21/2018, 06/21/2018 Influenza Vaccine (#1) 2025 4, 02/18/2023, 06/03/2022, Additional history exists Pneumococcal Vaccine: 65+ Years Completed 06/03/2022, 04/07/2019, 2017 Procedures Procedure Name Priority Date/Time Associated Diagnosis [...] Ayers M.D.06/21/2018 3:36 PM Dictation Location: [facility] Transcribed By: [facility] 06/21/18 1536 Dictated By: Tiana Ayers MD 06/21/18 1533 Signed By: <Electronically signed by Tiana Ayers MD in OV> 06/21/18 1536 Narrative 06/21/2018 12:00 AM EST PERFORMED AT [facility] LOCATION:[address] [place] [address] [place] [address] Mammography Report Signed Patient: Hayde Jones MR#: [id number] : 1950 Acct:[id number] Age/Sex: 68 / F ADM Date: 06/21/18 Loc: DC Room: Type: [facility] Attending Dr: Walter Horne MD Ordering Provider: [...] Note CONVERSION, GENERIC - 11/21/2022 PERFORMED AT [facility] LOCATION:[address] [place] [address] Mammography Report Signed Patient: Hayde Jones MR#: [id number] : 1950 Acct:[id number] Age/Sex: 68 / F ADM Date: 06/21/18 Loc: DC Room: Type: [facility] Attending Dr: Walter Horne MD Ordering Provider: [...] Ayers M.D.06/21/2018 3:36 PM Dictation Location: [facility] Transcribed By: [facility] 06/21/18 1536 Dictated By: Tiana Ayers MD 06/21/18 1533 Signed By: <Electronically signed by Tiana Ayers MD in OV> Walter Horne IMG BI PROCEDURES Final Result from Last 3 Months or Most Recently Relevant to Health Maintenance Insurance MEDICARE [facility] Care Teams Electrostatic Paint Operator Relationship Specialty Start Date End Date Unallocated, Noms MD John [address] [place] [address] PCP - General 01/06/23 Gela Bustillo NP [address] [place] [address] Referring Physician Family Medicine 06/27/24
--- OUTSIDE RECORDS SUMMARY | 2025-03-03 08:05 | XMS_ITS | CCD ---
Author Organization [facility] Care Team Providers Care Lunch Cook Name Role Phone Unavailable Primary Care Provider Unavailabl e [place] POLYMERIZATION KETTLE OPERATOR, Lyndsay Unavailable [place], Lyndsay Unavailable Agustin Sevilla Unavailable LYNDSAY DUNBAR Primary Care Physician [place] FREDI, Lyndsay Unavailable [phone] [place] FREDI, Lyndsay Unavailable [place] Jc RAIa Primary Care Provider [phone] [place] FREDI, Lyndsay Unavailable [phone] [place] FREDI, Lyndsay Primary Care Provider JC [...] Tolbert Unavailable WINNIE Dunbar Primary Care Provider [phone] WINNIE Dunbar Attending Provider [phone] MANJINDER LYNDSAY Primary Care Unavailable ISAIAH ARRIAGA Attending Unavailable ISAIAH ARRIAGA Admitting Unavailable EasterLyndsay clarke CNP Primary Care Provider WINNIE Dunbar Primary Care Provider WINNIE Dunbar Attending Provider [phone] Unallocated , Noms Provider Primary Care Provi magali Glenn DELONG, [place] Provider Primary Care Provi magali Lyndsay Dunbar MD Unavailable [facility] DARRYN, Lyndsay Unavailable [facility] Lyndsay ZHOU Primary Care Provider [facility] Lyndsay ZHOU Attending Provider Lyndsay Dunbar Attending Unavailable Lyndsay Dunbar Admitting Unavailable ALYSON VEGA Attending Unavailable ALYSON VEGA Attending Unavailable TAMARA PERES Attending Unavailable TERESA CROFT Attending Unavailable SCOTCH, OLIVE Referring Unavailable TAMARA PERES Attending Unavailable SCOTCH, OLIVE Referring Unavailable TAMARA PERES Attending Unavailable SCOTCH, OLIVE Referring Unavailable BEKOTA Valadez Attending Unavailable TERESA CROFT Attending Unavailable BEKOTA Valadez Referring Unavailable EVELYN LINK Attending Unavailable BEJKOTA Referring Unavailable EVELYN LINK Attending Unavailable BEJ, KOTA Barnhart Referring Unavailable HUI HOLLIDAY Attending Unavailable BEJ, KOTA Barnhart Referring Unavailable MARVYEVELYN Attending Unavailable BEJ, KOTA Barnhart Referring Unavailable TERESA CROFT Attending Unavailable BEJKOTA Referring Unavailable TAMARA PERES Attending Unavailable SCOTCH, OLIVE Referring Unavailable EVELYN LINK Attending Unavailable BEKOTA Valadez Referring Unavailable Duc Ray Attending Unavailable [facility] Lyndsay ZHOU Primary Care Provider Lyndsay Torres Attending Provider [phone] [facility] Lyndsay ZHOU Attending Provider SCOTCH, OLIVE Attending Unavailable SELF Referring Unavailable [place], LYNDSAY Primary Care Unavailable SHANEKA CLARK Attending Unavail able SCOTCH, OLIVE Referring Unavailable E[place], LYNDSAY Primary Care Unavailable SCOTCH, OLIVE Attending Unavailable SELF Referring Unavailable [place], LYNDSAY Primary Care Unavailable SCOTCH, OLIVE Referring Unavailable E[place]ER[place], LYNDSAY Primary Care Unavailable SCOTCH, OLIVE Attending Unavailable SELF Referring Unavailable E[place]ER[place], LYNDSAY Primary Care Unavailable SCOTCH, OLIVE Referring Unavailable E[place]ER[place], LYNDSAY Primary Care Unavailable SCOTCH, OLIVE Attending Unavailable E[place]ER[place]OD, LYNDSAY Primary Care Unavailable SUSIE MADDOX Noemi Referring Unavailable E[place]ER[place], LYNDSAY Primary Care Unavailable MIKEVELMASUSIE Noemi Referring Unavailable E[place]ER[place], LYNDSAY Primary Care Unavailable SUSIE MADDOX Noemi Attending Unavailable SCOTCH, OLIVE Referring Unavailable E[place]ER[place], LYNDSAY Primary Care Unavailable Allergies Allergy Classification Reported Allergen(s) Allergy Type Date of Onset Reaction(s) Facility (17 sources) Mosquito Propensity to adverse reactions itchy bump for 10 days Chalk[facility] Other (20 sources) anesthesia Propensity to adverse reactions 02-08-20 vomiting [facility] (3 sources) Acetaminophen / HYDROcodone; Translations: [acetaminophen-hy drocodone] Drug Allergy Nausea (finding) [facility] (20 sources) oxyCODONE; Translations: [oxycodone] Drug Allergy 01-07-20 Nausea (finding), Nausea Only [facility] (9 sources) pain medication Propensity to adverse reactions 11-15-19 Nausea [facility] (20 sources) Mosquito (Diagnostic) Drug allergy 01-07-20 Swelling [facility] (20 sources) Acetaminophen / HYDROcodone Drug Allergy 01-07-20 Nausea Only [facility] (20 sources) Propofol Drug Allergy 01-07-20 23 Unknown [facility] (3 sources) Cortisone Drug Allergy 05-19-19 Difficulty Breathing [facility] Comment on above: with hip injection Medications Current Medications Medication Drug Class(es) Dates Sig (Normalized) Sig (Original) acyclovir 400 mg oral tablet (1 source) Herpesvirus Nucleoside Analog DNA Polymerase Inhibitor, Herpes Simplex Virus Nucleoside Analog DNA Polymerase Inhibitor, Herpes Zoster Virus Nucleoside Analog DNA Polymerase Inhibitor Start: 01-22-2025 End: 01-27-2025 take 1 tablet by mouth three times daily acyclovir 400 mg Tab 400 mg = 1 tab(s), Oral, TID, X 5 day(s), # 15 tab(s), Refills(s) 0, Pharmacy: [facility]/pharmacy #[id number], 157, cm, 01/22/25 13:47:00 EDT, Height/Length Dosing, 72.2, kg, 01/22/25 13:47:00 EDT, Weight Dosing Start Date: 01/22/25 Stop Date: 01/27/25 Status: Ordered Quantity: 15.0 Unit: tab(s) Repeat number: 1 amoxicillin 500 mg oral tablet (20 sources) Penicillin-class Antibacterial Start: 01-11-2024 Amoxicillin 500 [...] 21, 2018 1:00am March 05, 2019 2:28pm Start: 04-21-2018 End: 03-05-2019 take 1 mg by mouth every eight hours Amoxicillin Discontinued 1 MG PO Q8H April 21, 2018 1:00am March 05, 2019 2:28pm Comment on above: two tabs one hour pr ior to dental procedure benoxinate hydrochloride 4 mg/ml / fluorescein sodium 2.5 mg/ml ophthalmic solution (1 source) Diagnostic Dye Start: 2 End: 2 fluorescein-benoxinat e 0.25-0.4 % 1 Drop (FLURESS) chlorhexidine gluconate 1.2 mg/ml mouthwash (2 sources) Start: 5 take 1 mL by mouth twice daily Chlorhexidine Gluconate 0.12 % mouthwash Active 15 ML PO Twice daily February 07, 2025 12:00am Complies with drug therapy Start: 01-22-2025 take 0.018 g by mout h twice daily Peridex 0.12% Liquid 0.018 gm, 15 mL, Oral, BID, 480 mL, Refill(s) 0, (swish and spit; do not swallow), [facility]/pharmacy #[id number], 157, cm, 01/22/25 13:47:00 EDT, Height/Length Dosing, 72.2, kg, 01/22/25 13:47:00 EDT, Weight Dosing Start Date: 01/22/25 Status: Ordered Quantity: 480.0 Unit: mL Repeat number: 1 Indications: Other forms of stomatitis; Cholecalciferol (20 sources) Vitamin D Start: 07-31-2023 cholecalcifero l (vitamin D3) Active PO July 31, 2023 12:00am Complies with drug therapy Start: 07-31-2023 Start: 07-31-2023 cholecalcifero l (vitamin D3) Active PO July 30, 2023 11:00pm Start: 07-31-2023 cholecalcifero l (vitamin D3) Active PO July 31, 2023 12:00am Start: 02-08-2020 End: 07-31-2023 take 1 capsule by mouth once daily Cholecalciferol (Vitamin D3) (Vitamin D3) 50 mcg (2,000 unit) Capsule Discontinued 2000 UNIT PO Daily February 08, 2020 12:00am July 31, 2023 8:24am Comment on above: Take 2,000 Units by [...] two times a day for 5 days. CN-U 5% phmb 40% urea (1 source) Start: 02-07-2025 efinaconazole 100 mg/ml topical solution (20 sources) Azole Antifungal Start: 09-26-2024 End: 12-26-2024 Efinaconazole (Jublia) 10 % solution Indications: Onychomycosis Apply 1 application topically Daily 10 mL 3 09/27/2024 12/26/2024 Active Eye Vitamins (17 sources) Eye Vitamins Act sherri fluocinonide 0.5 mg/ml topical solution (2 sources) Corticosteroid Start: 03-10-2022 End: 04-17-2022 fluocinonide (LIDEX) 0.05 % external solution APPLY TO SCALP ONCE DAILY NEEDED FOR ITCHING THU-THU 0 03/10/2022 04/17/2022 Discontinued Comment on above: APPLY TO SCALP ONCE DAILY NEEDED FOR ITCHING MON-THU ketoconazole 20 mg/ml medicated shampoo (10 sources) [...] 240 Ml Bottle (2 sources) Start: 02-08-20 24 take 5 mL by mouth three times daily Magic Mouthwash W/Lidocaine 240 Ml Bottle Active 0 PO Three times daily 240 February 08, 2024 12:00am SWISH AND SPIT 5ML TID X 16 DAYS, diphenhydramine 12.5 mg/5 mL orally three times daily; Magnesium (3 sources) Start: 05-19-19 magnesium Active PO 2024 1:00am Complies with drug therapy Start: 2024 Start: 2024 magnesium Acti ve PO 2024 12:00am omega-3 acid ethyl esters (2 sources) Start: 11-07-2024 omega-3 acid e thyl esters Active PO November 07, 2024 12:00am Complies with drug therapy Start: 11-07-2024 phenylephrine hydrochloride 25 mg/ml ophthalmic solution (1 source) alpha-1 Adrenergic Agonist Start: 10-31-2021 End: 11-01-2021 PHENYLephrine 2.5 % 1 Drop (AK-DILATE, RONALD-SYNEPHRINE) proparacaine hydrochloride 5 mg/ml ophthalmic solution (1 source) Local Anesthetic Start: 10-31-2021 End: 11-01-2021 proparacaine 0.5 % 1 Drop (ALCAINE) tropicamide 10 mg/ml ophthalmic solution (1 source) Anticholinergic Start: 10-31-2021 End: 11-01-2021 tropicamide 1 % 1 Drop (MYDRIACYL) Turmeric Curcumin (9 sources) take 1 capsule by mouth once daily Turmeric Curcumin 1 capsule, orally, once a day Active Turmeric extract (20 sources) Start: 07-31-2023 turmeric Active PO July 31, 2023 12:00am Complies with drug therapy Start: 07-31-2023 Start: 07-31-2023 turmeric Activ e PO July 30, 2023 11:00pm Start: 07-31-2023 [...] capsule by mo uth once daily. Vitamin B Complex (7 sources) Start: 10-16-2024 vitamin b complex (B-COMPLEX) tab 1 tablet once daily. 10/16/2024 Active Vitamin B Complex oral capsule (1 source) Start: 01-22-2025 take 1 capsule by mouth once daily Vitamin B Complex oral capsule Oral, Daily, Refill(s) 0 Start Date: 01/22/25 Status: Ordered Repeat number: 1 Vitamin B Complex tablet (1 source) Start: 02-07-2025 take 1 tablet by mouth once daily Vitamin B Complex tablet Active 1 TAB PO Daily February 07, 2025 12:00am Complies with drug therapy Vitamin D (20 sources) Start: 12-25-2021 Vitamin D International_Unit, Oral, qWeek, Refills(s) 0 Start Date: 12/25/21 Status: Ordered Repeat number: 1 Start: 12-25-2021 Vitamin D Inte rnational_Unit, Oral, qWeek, Refills(s) 0 Start Date: 12/25/21 Status: Ordered take 1 capsule by [facility] once daily Vitamin D 1 capsule, orally, once a [...] Comment on above: Take 2 tablets by [facility] every 8 hours as needed for pain. [...] Comment on above: Take 1 tablet by [facility] every 6 hours as needed. antiox #8/om3/dha/epa/lut/ [...] Orally twice a day for 1 days BIN:[id number] PCN: [id number] GROUP:[id number] ID:[id number] Oct, Not-Taking Start: 10-21-2021 PLENVU 140-9-5 .2 gram powder in packet Start: 10-21-2021 Plenvu 140 GM dose 1 pouch at 4pm, dose 2 pouch A & B at 11pm Orally twice a day for 1 days BIN:[id number] PCN: CNRX GROUP:[id number] ID:[id number] Oct, Active aspirin 81 mg delayed release [...] / proguanil hydrochloride 100 mg oral tablet (6 sources) Antimalarial, Antiprotozoal Start: 10-29-2023 End: 02-08-2024 take 1 tablet by mouth once daily Atovaquone-Proguan il 250-100 mg tablet Discontinued 0 PO .COMPLEX 26 October 29, 2023 12:00am February 08, 2024 3:03pm take 1 tab once daily x2 days before exposure, during time in area, and x7 days after leaving area PO betamethasone 3 mg/ml / betamethasone acetate 3 mg/ml injectable suspension (2 sources) Corticosteroid Start: 12-29-2024 End: 12-29-2024 betamethasone acetate-betamethas one sodium phosphate 6 mg injection (CELESTONE) Start: 12-29-2024 End: 12-29-2024 6 mg, Injection - FOR ORTHO USE ONLY, ONCE, 1 dose, Starting on Nanci 12/29/24 at 1655, Until Nanci 12/29/24 at 1655 carbamide peroxide 65 mg/ml otic solution (5 sources) Debrox 6.5 % 5 d rops into affected ear Otic Twice a day Not-Taking celecoxib 100 mg oral capsule (20 sources) Nonsteroidal Anti-inflammatory Drug Start: End: take 1 capsule by mouth once daily [...] 2 10/25/2021 01/23/2022 take 1 capsule by [facility] twice daily celecoxib (CELEBREX) 100 mg capsule Take 100 mg by mouth twice daily. 0 Active Comment on above: Take 1 capsule by [facility] twice daily. Take 200 mg by mouth twice daily. Take 100 mg by mouth twice daily. Take 1 capsule by [facility] once daily. erythromycin 0.005 mg/mg ophthalmic ointment [...] inch ribbon per application TO OPERATIVE SITE 10 ml lidocaine hydrochloride 10 mg/ml injection (4 sources) Antiarrhythmic, Amide Local Anesthetic Start: 12-29-2024 End: 12-29-2024 lidocaine (PF) 10 mg/mL (1 %) 5 mL injection (XYLOCAINE) Start: 12-29-2024 End: 12-29-2024 5 mL, Injection - FOR ORTHO USE ONLY, ONCE, 1 dose, Starting on Nanci 12/29/24 at 1655, Until Nanci 12/29/24 at 1655 Start: 12-07-2024 End: 12-07-2024 lidocaine (PF) 10 mg/mL (1 % ) 8 mL injection (XYLOCAINE) Start: 12-07-2024 End: 12-07-2024 8 mL, Injection - FOR ORTHO USE ONLY, ONCE, 1 dose, Starting on Thu12/07/24 at 1312, Until Thu12/07/24 at 1312 Magic Mouthwash W/Lidocaine 240 Ml Bottle 240 mL bottle (3 sources) Start: 02-08-2024 End: 2024 take 5 mL by mouth three times daily Magic Mouthwash W/Lidocaine 240 Ml Bottle 240 mL bottle Discontinued 0 PO Three times daily 240 February 08, 2024 12:00am 2024 11:35am SWISH AND SPIT 5ML TID X 16 DAYS, diphenhydramine 12.5 mg/5 mL orally three times daily; Start: 02-08-2024 End: 2024 take 5 mL by mouth three times daily Magic Mouthwash W/Lidocaine 240 Ml Bottle 240 mL bottle Discontinued 0 PO Three times daily 240 February 07, 2024 11:00pm 2024 10:35am SWISH AND SPIT 5ML TID X 16 DAYS, diphenhydramine 12.5 mg/5 mL orally three times daily; methocarbamol 500 mg oral tablet (7 sources) Muscle Relaxant Start: 03-19-2023 End: 09-23-2023 take 1 tablet by mouth every eight hours as needed methocarbamol (ROBAXIN) 500 mg tablet Take 1 tablet by mouth three times a day as needed (Muscle spasm). 10 tablet 03/19/2023 09/23/2023 Discontinued Comment on above: Take 1 tablet by lewis three times a day as needed (Muscle spasm). methylPREDNISolone 4 mg oral tablet (9 sources) Corticosteroid Start: 04-21-2018 End: 03-05-2019 Methylprednisolone 4 mg tablets,dose pack Discontinued 1 MG PO As Directed April 21, 2018 1:00am March 05, 2019 2:28pm Start: 04-21-2018 End: 03-05-2019 Methylprednisolone Discontin ued 1 MG PO As Directed April 21, 2018 1:00am March 05, 2019 2:28pm omega-3 fatty acids (7 sources) Start: 10-29-2023 End: 02-08-2024 omega-3 fatty [...] in both e yes four times daily. 20 ml ropivacaine hydrochloride 5 mg/ml injection (2 sources) Amide Local Anesthetic Start: 12-29-2024 End: 12-29-2024 ROPivacaine (PF) 5 mg/mL (0.5 %) 3 mL injection (NAROPIN) Start: 12-29-2024 End: 12-29-2024 3 mL, Injection - FOR ORTHO USE ONLY, ONCE, 1 dose, Starting on Thu12/29/24 at 1655, Until Thu12/29/24 at 1655 sennosides, fpc 8.6 mg oral tablet (7 sources) Start: 03-19-2023 End: 09-23-2023 take 2 tablets by mouth once daily at bedtime senna (SENOKOT) 8.6 mg tab Take 2 tablets by mouth daily at bedtime. 10 tablet 03/19/2023 09/23/2023 Discontinued Comment on above: Take 2 tablets by [facility] daily at bedtime. sodium chloride 0.342 meq/ml [...] oral tablet (1 source) Opioid Agonist Start: 03-17-20 take 1 tablet by mouth every six hours as needed for pain traMADol (ULTRAM) 50 mg tablet Indications: History of Descemet membrane endothelial keratoplasty (DMEK) Take 1 tablet by mouth every 6 hours as needed for pain. 10 tablet 0 03/17/2022 Active Comment on above: Take 1 tablet by lewis every 6 hours as needed for pain. 1 ml triamcinolone acetonide 40 mg/ml injection (20 sources) Corticosteroid Start: 12-08-19 End: 12-08-19 triamcinolone acetonide 80 mg injection (KeNALog 40) Start: 12-07-2024 End: 12-07-2024 80 mg, Injection - FOR ORTHO USE ONLY, ONCE, 1 dose, Starting on Thu12/07/24 at 1312, Until Thu12/07/24 at 1312 Start: 03-10-2022 End: 04-17-2022 triamcinolone acetonide (NICK ALOG) 0.1 % cream APPLY TO AFFECTED AREA ON TRUNK TWICE A DAY THU-THU OFF ON WEEKEND THEN NEEDED AVOID FACE/GROIN 0 03/10/2022 04/17/2022 Discontinued Start: 01-13-2020 Kenalog -40 mg Dec, 10 mg Comment on above: APPLY TO AFFECTED AR EA ON TRUNK TWICE A DAY THU-THU OFF ON WEEKEND THEN NEEDED AVOID FACE/GROIN Vit C-E-Zinc Sje-Mhftls-Tbzqpj (Ocuvite [facility]) 50 mg-15 unit- 4.5 mg-2.5 mg Tablet,Chewable (9 sources) Start: 11-14-2021 End: 07-31-2023 take 2 tablets by mouth once daily Vit C-E-Zinc Bde-Ksbweh-Iohtpc (Ocuv[facility]) 50 mg-15 unit- 4.5 mg-2.5 mg Tablet,Chewable Discontinued 2 TAB PO Daily November 13, 2021 11:00pm July 31, 2023 7:24am Start: 11-14-2021 End: 07-31-2023 take 2 tablets by mouth once daily Vit C-E-Zinc Sqt-Gacqke-Naflrq ([facility]) 50 mg-15 unit- 4.5 mg-2.5 mg Tablet,Chewable Discontinued 2 TAB PO Daily November 14, 2021 12:00am July 31, 2023 8:24am Start: 11-14-2021 take 2 tablets by mo uth once daily Vit C-E-Zinc Jzv-Mvbpsq-Vsyrme ([facility]uv[facility]) 50 mg-15 unit- 4.5 [...] itamin K) 1 mg/0.5 mL Solution Discontinued February 08, 2020 12:00am November 14, 2021 7:25am Start: 02-08-2020 End: 11-14-2021 Phytonadione (Vitamin K1) (V itamin K) 1 mg/0.5 mL Solution Discontinued SOLUTION February 07, 2020 11:00pm November 14, 2021 6:25am Start: 02-08-2020 End: 11-14-2021 Phytonadione (Vitamin K1) (V itamin K) 1 mg/0.5 mL Solution Discontinued SOLUTION February 08, 2020 12:00am November 14, 2021 7:25am Comment on above: Take 5 mg by mouth. 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] 07-31-2023 Episodic Conditions associated with dizziness or vertigo (20 sources) Dizziness; Translations: [Dizziness and giddiness] Onset: 09-30-2021 Resolved: 09-30-2021 Episodic Comment on above: Neurology March 19 024 Diseases of mouth; excluding dental (6 sources) Lesion of oral mucosa; Translations: [Unspecified lesions of oral mucosa] Onset: 01-22-2025 02-09-2024 Episodic Disorders of lipid metabolism (20 sources) Hyperlipidemia; Translations: [Hyperlipidemia, unspecified] Onset: 04-06-2021 Resolved: 09-30-2021 Chronic Diverticulosis and diverticulitis (2 sources) Diverticular disease; Translations: [Diverticulosis of intestine, part unspecified, without perforation or abscess without bleeding] 11-07-2024 Chronic Esophageal disorders (12 sources) Gastroesophageal reflux disease; Translations: [Gastro-esophageal reflux disease without esophagitis] 07-31-2023 Chronic Essential hypertension (20 sources) Essential hypertension; Translations: [Essential (primary) hypertension] 07-31-2023 Chronic Genitourinary symptoms and ill-defined conditions (4 sources) Increased frequency of urination; Translations: [Frequency of micturition] 12-23-2022 Episodic Hypertension with complications and secondary hypertension (8 sources) Chronic kidney disease due to hypertension; Translations: [Hypertensive chronic kidney disease with stage 1 through stage 4 chronic kidney disease, or unspecified chronic kidney disease] Chronic Mycoses (4 sources) Onychomycosis; Translations: [Tinea unguium] 06-27-2024 Episodic Comment on above: chronic - follows wi Dr. Vega (Podiatry) Nonmalignant breast conditions (20 sources) Fibrocystic disease of breast; Translations: [Diffuse cystic mastopathy of unspecified breast] 07-31-2023 Chronic Osteoarthritis (20 sources) Osteoarthritis of right hip joint; Translations: [Unilateral primary osteoarthritis, right hip] Onset: 12-25-2021 Chronic Comment on above: [facility] Other aftercare (20 sources) Patient encounter status; Translations: [Aftercare following joint replacement surgery] Onset: 04-13-2023 04-06-2023 Chronic Other aftercare (1 source) Aftercare following joint replacement surgery; Translations: [Aftercare following right hip joint replacement surgery] Onset: 04-13-2023 Chronic Other and unspecified benign neoplasm (2 sources) History of polyp of colon; Translations: [History of colonic polyps] 11-07-2024 Episodic Other bone disease and musculoskeletal deformities (4 sources) Segmental and somatic dysfunction; Translations: [Segmental and somatic dysfunction of thoracic region] Onset: 12-25-2021 Episodic Other bone disease and musculoskeletal deformities (2 sources) Somatic dysfunction of lower limb 12-25-2021 Episodic Other bone disease and musculoskeletal deformities (2 sources) Somatic dysfunction of lumbar region 12-25-2021 Episodic Other bone disease and musculoskeletal deformities (2 sources) Somatic dysfunction of sacral region 12-25-2021 Episodic Other bone disease and musculoskeletal deformities (2 sources) Somatic dysfunction of thoracic region 12-25-2021 Episodic Other connective tissue disease (4 sources) Presence of right artificial hip joint; Translations: [Hip joint replacement] Onset: 03-18-2023 02-08-2024 Chronic Other connective tissue disease (20 sources) History of repair of hip joint; Translations: [Presence of right artificial hip joint] Onset: 03-18-2023 03-18-2023 Chronic Other connective tissue disease (20 sources) Tear of right rotator cuff; Translations: [Unspecified rotator cuff tear or rupture of right shoulder, not specified as traumatic] 07-31-2023 Episodic Other connective tissue disease (20 sources) Trochanteric bursitis of right hip; Translations: [Trochanteric bursitis, right hip] Onset: 09-23-2023 09-23-2023 Episodic Comment on above: [facility] Other connective tissue disease (2 sources) Pain in both feet; Translations: [Pain in right foot] 06-27-2024 Episodic Other connective tissue disease (1 source) Trochanteric bursitis; Translations: [Trochanteric bursitis, right hip] 01-23-2025 Episodic Other connective tissue disease (2 sources) Trochanteric bursitis, right hip; Translations: [Greater trochanteric bursitis of right hip] Onset: 09-23-2023 Episodic Other ear and sense organ disorders (12 sources) Sensorineural hearing loss, bilateral; Translations: [Sensorineural [...] upper limb] Chronic Other nervous system disorders (18 sources) Right-sided piriformis syndrome; Translations: [Lesion of sciatic nerve, right lower limb] Onset: 03-28-2024 03-28-2024 Chronic Comment on above: [facility] Other nervous system disorders (1 source) Lesion of sciatic nerve, right lower limb; Translations: [Piriformis syndrome, right] Onset: 03-28-2024 Chronic Other nervous system disorders (1 source) Other acute postprocedural pain; Translations: [Acute postoperative pain of right hip] Onset: 03-18-2023 Episodic Other nervous system disorders (12 sources) Paresthesia; Translations: [Paresthesia of skin] 07-31-2023 Episodic Other nervous system disorders (1 source) Paresthesia of skin Episodic Other non-traumatic joint disorders (1 source) Rotator cuff arthropathy of right shoulder; Translations: [Other specific arthropathies, not elsewhere classified, right shoulder] Chronic Other non-traumatic joint disorders (2 sources) Arthritis of hip 12-25-2021 Chronic Other non-traumatic joint disorders (2 sources) Arthritis of shoulder region joint 12-25-2021 Chronic Other non-traumatic joint disorders (20 sources) Pain in right hip joint; Translations: [Pain in right hip] Episodic Other non-traumatic joint disorders (3 sources) Pain in right hip; Translations: [Acute postoperative pain of right hip] Onset: 09-30-2021 Resolved: 09-30-2021 Episodic Other non-traumatic joint disorders (2 sources) Pain in left shoulder; Translations: [Left shoulder pain] 11-09-2024 Episodic Other nutritional; endocrine; and metabolic disorders (1 source) Overweight in adulthood with body mass index of 25 or more but less than 30; Translations: [Body mass index (BMI) 26.0-26.9, adult] Onset: 12-25-2021 Episodic Other nutritional; endocrine; and metabolic disorders (9 sources) History of clinical finding in subject; [...] Callosity; Translations: [Corns and callosities] 06-27-2024 Episodic Other skin disorders (3 sources) Disorder of hand; Translations: [Disorder of the skin and subcutaneous tissue, unspecified] 11-09-2024 Episodic Residual codes; unclassified (4 sources) Memory impairment; Translations: [Other amnesia] Episodic Residual codes; unclassified (1 source) Postoperative state; Translations: [Other specified postprocedural states] Episodic Residual codes; unclassified (2 sources) Pain; Translations: [Pain, unspecified] 10-25-2021 Episodic Retinal detachments; defects; vascular occlusion; and retinopathy (2 sources) Degenerative disorder of macula ; Translations: [Unspecified macular degeneration] 11-09-2024 Chronic Spondylosis; intervertebral disc disorders; other back problems (20 sources) Degeneration of thoracic intervertebral disc; Translations: [Other intervertebral disc degeneration, thoracic region] Onset: 12-07-2024 Chronic Spondylosis; intervertebral disc disorders; other back problems (20 sources) Sciatica; Translations: [Sciatica, right side] Onset: 09-30-2021 Resolved: 09-30-2021 Episodic Sprains and strains (9 sources) Strain of neck muscle; Translations: [Strain [...] 3 UNSP] Onset: 12-09-2021 Unclassified (1 source) Midline low back pain without sciatica, unspecified chronicity; Translations: [Midline low back pain without sciatica, unspecified chronicity] Onset: 02-21-2025 Unclassified (1 source) Low back pain, unspecified back pain laterality, unspecified chronicity, unspecified whether sciatica present; Translations: [Low back pain, unspecified back pain laterality, unspecified chronicity, unspecified whether sciatica present] Onset: 01-23-2025 Past or Other Problems Problem Classification Problem Date Documented Date Episodic/Chronic Cardiac dysrhythmias (20 sources) Sinus bradycardia; Translations: [Bradycardia, unspecified] Onset: 03-17-2023 03-17-2023 Episodic Chronic kidney disease (3 sources) Chronic kidney disease Onset: 09-30-2021 Resolved: 11-26-2021 Nausea and vomiting (20 sources) Postoperative nausea and vomiting; Translations: [Nausea with vomiting, unspecified] Onset: 02-18-2023 02-18-2023 Episodic Other circulatory disease (20 sources) Elevated blood-pressure reading without diagnosis of hypertension; Translations: [Elevated blood-pressure reading, without diagnosis of hypertension] Onset: 09-02-2022 Episodic Other circulatory disease (20 sources) Low blood pressure; Translations: [Other hypotension] Onset: 03-17-2023 03-17-2023 Episodic Other connective tissue disease (1 source) Unspecified rotator cuff tear or rupture of right shoulder, not specified as traumatic Onset: 09-30-2021 Resolved: 09-30-2021 Episodic Other connective tissue disease (20 sources) Spasm of cervical paraspinous muscle; Translations: [Other muscle spasm] Onset: 02-16-2024 02-16-2024 Episodic Other eye disorders (20 sources) Fuchs' corneal dystrophy; Translations: [Fuchs' corneal dystrophy of both eyes] Onset: 03-25-2022 Episodic Other inflammatory condition of skin (1 source) Seborrheic dermatitis, unspecified Onset: 12-03-2021 Resolved: 12-03-2021 Episodic Other nervous system disorders (20 sources) Hip pain; Translations: [Other acute postprocedural pain] Onset: 03-18-2023 03-18-2023 Episodic Respiratory failure; insufficiency; arrest (adult) (9 sources) Respiratory failure; insufficiency; arrest (adult); Translations: [Corneal transplant failure, bilateral] Results Test Name Value Interpretation Reference Range Facility MRI LUMBAR SPINE WO IVCONon 02-21-2025 MRI LUMBAR SPINE WO IVCON * * *Final Report* * * DATE [...] This information is taken directly from the food order delivery runner system. TECHNIQUE: Routine lumbosacral spine MR protocol without gadolinium. MQ: [id number] COMPARISON: Lumbar plain films 01/23/2025. RESULT: Counting reference: Lumbosacral junction. For the purposes of this report, L4-5 is considered the level of the iliac crest and assume there are 5 lumbar-type vertebrae. Anatomic variant: None. Localizer images: Obesity. No paraspinal masses are evident within the resolving capacity of the office bookkeeper view. Alignment: Scoliotic curvature convex right, apex [...] and iliac wings: No evidence for fracture. IMPRESSION: Scoliosis and spondylosis as detailed. No high-grade canal or foraminal narrowing. Mild left lateral recess narrowing at L2-L3 which may impinge on the descending left L3 nerve root. The visible chronic facet degenerative change and chronic malalignment may contribute to mechanical pain. Anatomic Lumbar Variant: None. L4-5 is considered the level of the iliac crest and assume there are 5 lumbar-type vertebrae. 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 Commander: PSCB Transcribe Date/Time: Feb 21 2025 8:20A Dictated by : MIKAELA ABREU MD This examination was interpreted and the report reviewed and electronically signed by: MIKAELA ABREU MD on Feb 21 2025 8:28AM EST [id number] CN Normal [facility] CNOVon 01-23-2025 CNOV Office Visit (PAINLN) GRACIE JONES ([id number]) 1950 F Date Time Provider Department 01/23/25 8:30 AM SUSIE MADDOX PAINLN During your visit today, we recorded the following information about you: Pulse Weight Height 62/minute 71.2 kg 1.575 m Susie Maddox MD 01/23/2025 1:37 PM Signed SUBJECTIVE: Ms. Jones a 74 year old female referred by Olive Martinez PA-C presents with the complaint of bilateral lumbar, SI, and leg pain, focusing on bilateral upper lumbar pain today and describes as dull and intermittent. The pain is localized to the T12 to L3 region and does not radiate. 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 She denies any current pain, but reports that the pain can reach a severity of 9-10/10 during episodes, particularly when she is unable to sit down or take breaks. Gracie also has a history of right hip pain, which was previously treated with an injection in the right trochanteric bursa approximately one month ago. She reports that this injection provided significant relief, and she no longer experiences pain radiating to her knee. She also received an SI joint injection under US guidance, which further alleviated the hip pain. Gracie is not on any medications, including blood thinners, and has not tried physical therapy for her lumbar pain. She is active and goes to the gym regularly. She denies any relief from leaning forward or staying upright when experiencing middle back pain. Patient reports the date of onset of symptoms as 30 years ago and describes the location of the pain as lower lumbar. The pain is chronic, aching, and rated as 9 on a scale of 1-10, with radiation. PAIN RATIO: (back:leg): Back > Leg OTHER BACK PAIN SYMPTOMS: NIGHT PAIN: No PARESTHESIA: No POOR SLEEP: No BOWEL/BLADDER INCONTINENCE OR RETENTION: No ACTIVITY LIMITATIONS: ADLs PREVIOUS TREATMENTS LASTING SIX WEEKS IN THE LAST SIX MONTHS Right SI joint injection and R trochanteric bursa injections Active conservative therapy lasting 6 weeks in the last six months (see below) 1. Physical therapy: Yes Vilma Smalls 10/2024 6-8 sessions 2. Home exercise program after PT: yes 3. Occupational therapy: No 4. A physician supervised home exercise program (HEP): No 5. Blindstitch Machine Operator: No Passive conservative therapy lasting 6 weeks in the last six months (see below) 1. Medical devises: No 2. Acupuncture: Yes (right hip) 3. Tens unit: No 4. Prescription pain medication: No 5. 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 HISTORY OF TRAUMA/OVERUSE OF AREA: No REVIEW OF SYSTEMS: GENERAL: Negative for malaise, significant weight loss and fever HEENT: Negative for frequent or significant headaches NECK: Negative for lumps, goiter, pain and significant neck swelling RESPIRATORY: Negative for cough, hemoptysis, wheezing, COPD, dyspnea or shortness of breath CARDIOVASCULAR: Negative for chest pain, leg swelling, hypertension, CHF or palpitations GI: No nausea, vomiting, or diarrhea : No history of dysuria, frequency or incontinence FIELD LOGISTICS COORDINATOR: Negative for abnormal vaginal bleeding, abnormal vaginal discharge. . MUSCULOSKELETAL: See HPI SKIN: Negative for lesions, rash, and itching PSYCH: Negative for sleep disturbance, mood disorder and recent psychosocial stressors. HEMATOLOGY/LYMPHOLOG Y Negative for prolonged bleeding, bruising easily or swollen nodes ENDOCRINE: Negative for cold or heat intolerance, polyuria, polydipsia and goiter PAST MEDICAL HISTORY Diagnosis Date Stage 3 chronic kidney disease (HCC) 12/09/2021 PAST MEDICAL HISTORY Diagnosis Date Stage 3 chronic kidney disease (HCC) 12/09/2021 PAST SURGICAL HISTORY Procedure Laterality Date SECTION HX x2 COLONOSCOPY SCREENING KERATOPLASTY ENDOTHELIAL Right 04/14/2022 KERATOPLASTY ENDOTHELIAL Left 03/17/2022 PAST SURGICAL HISTORY OF BLEPHAROPLASTY UPPER TOTAL HIP REPLACEMENT Right XR CERVICAL FUSION OR EXAMINATION: [id number] TERIOR: Scoliosis: No Pelvic Tilt: No Leg Length discrepancy: Equal LATERAL: Cervical Lordosis: No Thoracic Kyphosis: No Lumbar Lordosis: No RANGE OF MOTION CERVICAL: Flexion: Not Limited Extension: Not Limited Rotation L: Not Limited Rotation R: Not Limited Side Bending R: Not Limited Side Bending L: Not Limited LUMBAR: Flexion: Not Limited Extension: Not Limited Rotation L: Not Limited Rotation R: Not Limited Side Bending R: Not Limited Side Bending L: Not Limited FINGER TO FLOOR DISTANCE: Toes and floor Gait: Normal REFLEXES R L Biceps (C6): 1-2+ 1-2+ Triceps (C7): 1-2+ 1-2+ Brachioradiolis (C6): 1-2+ 1-2+ Ankle (S1): 2+ 2+ Knee (L4): 2+ 2+ STRENGTH (0-5): R L Deltoid (AB:C5,6): 5 5 Biceps (Flex:C5,6): 5 5 (more content not included)... Normal [facility] XR LUMBAR 2V AP/LATon 2024 XR LUMBAR 2V AP/LAT * * *Final Report* * * DATE [...] osteophytes are present at L2-L3 and L3-L4. IMPRESSION: 1. Lumbar dextroscoliosis. 2. Multilevel lumbar spondylosis. 3. Lower lumbar spine degenerative facet arthrosis. 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 Commander: ANDREW Transcribe Date/Time: Jan 23 2025 10:14A Dictated by : SARAH ROBERTO MD This examination was interpreted and the report reviewed and electronically signed by: SARAH ROBERTO MD on Jan 23 2025 10:15AM EST [id number] CN Normal [facility] XR Lumbar spine AP and Later ben 01-23-2025 IMPRESSION: 1. Lumbar dextroscoliosis. 2. Multilevel lumbar spondylosis. 3. Lower lumbar spine degenerative facet arthrosis. 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 Commander: [facility] Transcribe Date/Time: Jan 23 2025 10:14A Dictated by : SARAH ROBERTO MD This examination was interpreted and the report reviewed and electronically signed by: SARAH ROBERTO MD on Jan 23 2025 10:15AM EST DIVISION OF RADIOLOGY * * *Final Report* [...] osteophytes are present at L2-L3 and L3-L4. DIVISION OF RADIOLOGY Provider, [facility] [place] - 01/23/2025 * * *Final Report* * [...] 3. Lower lumbar spine degenerative facet arthrosis. 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 Commander: ANDREW Transcribe Date/Time: Jan 23 2025 10:14A Dictated by : SARAH ROBERTO MD This examination was interpreted and the report reviewed and electronically signed by: SARAH ROBERTO MD on Jan 23 2025 10:15AM EST [facility] Radiology Study observation (narrative) Sandra Tello XR Lumbar spine AP and Later alOrdered By: [facility] Provider on 01-23-2025 [facility] Ambulatory Visit Summaryon 0 01-22-2025 Ambulatory Visit Summary Ambulatory Visit Summary GRACIE JONES :1950 Visit Date:01/22/2025 Ambulatory Visit Instructions Your Diagnosis Stomatitis Your Care Team Attending Physician - Duc Ray PA-C Primary Care Physician - [place] [employer] KETTLE OPERATOR, LYNDSAY This Is Your Medications List acyclovir (acyclovir 400 mg Tab) chlorhexidine topical (Peridex 0.12% Liquid) Contact prescribing physician if questions or concerns ergocalciferol (Vitamin D) multivitamin (Vitamin B Complex oral capsule) Procedures Performed section, Cornea, Hip replacement, Neck pain, Tubal ligation. Discharge Vitals Temperature (Oral) 36.5 ???C Heart Rate (Peripheral) 76 Blood Pressure 124/78 Height 157 cm Height 62 in Weight 72.2 kg Weight 159.174 lb BMI 29.29 What to do next You Need to Schedule the Following Appointments Follow Up with LYNDSAY DUNBAR CNP When: Where: [address] [place] [address]- [phone] Medications What How Much When Why Instructions New acyclovir (acyclovir 400 mg Tab) 1 Tablets By Mouth 3 times a day Duration: 5 Days Pickup at [facility]/pharmacy #[id number] New chlorhexidine topical (Peridex 0.12% Liquid) 15 Milliliter By Mouth 2 times a day Stomatitis (swish and spit; do not swallow) Pickup at [facility]/pharmacy #[id number] Unchanged ergocalciferol (Vitamin D) By Mouth Every week Contact prescribing physician if questions or concerns Unchanged multivitamin (Vitamin B Complex oral capsule) By Mouth Every day Contact prescribing physician if questions or concerns Pharmacy Information [facility]/pharmacy #[id number]: [address], [place] [phone] Allergies Vicodin (Nausea) oxyCODONE (Nausea) Problems Ongoing - Any problem that you are currently receiving treatment for. Cervical arthritis Chronic radicular lumbar pain Hip arthritis Lower limb region somatic dysfunction Lumbar region somatic dysfunction Sacral region somatic dysfunction Shoulder arthritis Stage 3 chronic kidney disease Thoracic region somatic dysfunction Patient Survey You may receive a survey via text or e-mail asking about your office visit. Please share your experience with us by completing your survey. We appreciate your feedback and thank you for choosing us for your care. Education Materials Stomatitis Stomatitis is a condition that causes irritation and swelling (inflammation) in the mouth. It can affect all or part of the inside of the mouth. The condition often affects the cheek, teeth, gums, lips, and tongue. It can also affect the tissues that produce mucus in the mouth (mucosa). Pain from stomatitis can make it hard for you to eat or drink. Very bad cases of this condition can lead to: ??? Not getting enough fluid in your body (dehydration). ??? Poor nutrition. What are the causes? Infections caused by germs (viruses, bacteria, or fungi). Examples include cold sores, shingles, and oral thrush. ??? Cancer treatment, including chemotherapy and radiation therapy. ??? Not getting enough of certain vitamins (vitamin deficiency). ??? Not getting proper nutrition. ??? Injury to the mouth. This can be from: ? Dentures or braces that do not fit well. ? Biting your tongue or cheek. ? Burning your mouth. ? Having sharp or broken teeth. ??? Gum disease. ??? Using tobacco, especially chewing tobacco. ??? Allergies to foods, medicines, or substances that are used in your mouth. ??? Certain medicines. In some cases, the cause may not be known. What increases the risk? Not taking good care of your mouth and teeth (poor oral hygiene). ??? Having poor nutrition. ??? Having any condition that weakens the body's defense system (immune system). ??? Being treated for cancer. ??? Using tobacco products. ??? Having any condition that causes a dry mouth. ??? Being under a lot of physical or emotional stress. What are the signs or symptoms? The most common symptoms of this condition are pain, swelling, and redness inside your mouth. The pain may feel like burning or stinging. It may get worse from eating or drinking. Other symptoms may include: ??? Painful, shallow sores (ulcers) in the mouth. ??? White patches in the mouth. ??? Blisters in the mouth. ??? Bleeding gums. ??? Bad breath. ??? Bad taste in the mouth. ??? Fever. How is this treated? Treatment depends on the cause. Treatment may include: ??? Blhr-wzh-bcirgub pain medicines or medicines to coat or numb your mouth. ??? Gel, cream, or spray to numb the area (topical anesthetic) if you have very bad pain. ??? Medicines to treat an infection. ??? Vitamins. ??? Mouth rinses to reduce swelling (steroids). You may also need to stop or change any medicines that might be causing the condition. Follow these instructions at home: Medicines ??? Take [id number] and prescription m (more content not included)... Normal [facility] Family Medicine Office/Clini c Noteon 01-22-2025 Family Medicine Office/Clinic Note Family Medicine Office/Clinic Note Chief Complaint sores in mouth HPI Staff 74 year old female presents with painful blisters on the inside of pt's cheeks, both cheeks feel swollen Onset: 2-3 weeks ago had the blisters a few years ago on her tongue, but it had went away without treatment History of Present Illness I have reviewed and verified the staff HPI to be accurate for this encounter. Portions of this record have been created with voice recognition software. Occasional wrong-word or ???[id number]??? substitutions may have occurred due to the inherent limitations of voice recognition software. 74 yo female with history of stage III chronic kidney disease presents today with cc of sores inside of her mouth. Patient states painful blisters on the inside of both of her cheeks states her cheeks feel swollen this has been ongoing about 2 to 3 weeks duration. States she has had a blister similar to this in the past on her tongue but was seen by her dentist and told to monitor states that it went away without treatment. Patient states has been going on a longer duration which she has concern. Denies any recent viral-like symptoms or any sick contacts in the past 2 weeks duration. She does not wear dentures or have any partial plates. She states previously is [address] without treatment or management but since has been ongoing x 2 to 3 weeks it is really bothersome difficulty with eating she is still eating or drinking she has tried some liquid Benadryl at home has also tried states tea or anything that seems to be of comfort to her. Is chewing on the opposite side of the mouth or attempting to. No fever associated chills no body aches. She has no other concerns at this time. Review of Systems PHQ Score Initial Depression Screen Score: 0 SCORE ROS negative unless otherwise stated in HPI. Physical Exam Vitals & Measurements T: 36.5 ???C(Oral) HR: 76(Peripheral) BP: 124/78 SpO2: 98% HT: 157 cm HT: 62 in WT: 72.2 kg WT: 159.174 lb BMI: 29.29 General: Pleasant elderly female, no acute distress sitting upright in the exam chair Eyes:Bilateral conjunctiva wnl, no injection Ears:Bilateral TMs are wnl. No erythema or bulging. Bilateral external auditory canals are wnl no erythema or edema. Nose:No deformity, discharge, inflammation, or lesions Mouth: Moist mucous membranes. It is midline. Patient has multiple oral ulcerations which are white in color similar to aphthous ulcers. Please align the left inside of the cheek both sides of patient's tongue and bilateral sides of the posterior oropharynx region in front of the tonsils. There is no tonsillar erythema edema or exudative lesions present no concerns of peritonsillar abscess no trismus or drooling. This would be concerning for stomatitis or mucositis. Neck:no adenopathy Lungs:Lung sounds are clear bilaterally. No wheezing, rhonchi, or crackles on exam. Cardio:S1, S2, regular rhythm. No murmurs, gallops, or rubs. Abdomen:not assessed Musculoskeletal:not assessed Extremity:not assessed Neurologic:not assessed Skin:not assessed Mental Status:Alert and oriented x3. Normal mood and affect Assessment/Plan I discussed with patient that typically stomatitis is a self-limiting thing where eventually these do resolve or go away on their own however patient is having symptoms over the past 2 to 3 weeks duration. Going to treat her cover patient with acyclovir, antiviral 400 mg 3 times daily x 5 days to see if this helps or with improvement in addition to a Chloraseptic mouth rinse Peridex swish and spit twice daily over the next 7 to 10 days duration patient should have close follow-up with PCP and will contact their office tomorrow morning to schedule a follow-up appointment. Patient agrees and understands plan of care. 1. Stomatitis (K12.1: Other forms of stomatitis) See above. Ordered: chlorhexidine topical, 0.018 gm, 15 mL, Oral, BID, 480 mL, Refill(s) 0, (swish and spit; do not swallow), [facility]/pharmacy #[id number], 157, cm, 01/22/25 13:47:00 EDT, Height/Length Dosing, 72.2, kg, 01/22/25 13:47:00 EDT, Weight Dosing Orders: acyclovir, 400 mg = 1 tab(s), Oral, TID, X 5 day(s), # 15 tab(s), Refills(s) 0, Pharmacy: [facility]/pharmacy #[id number], 157, cm, 01/22/25 13:47:00 EDT, Height/Length Dosing, 72.2, kg, 01/22/25 13:47:00 EDT, Weight Dosing Follow-up With When Contact Information LYNDSAY DUNBAR CNP [address] [place] [address]- [phone] Additional Instructions: Patient Education Stomatitis, Pjrt-[id number] Problem List/Past Medical History Ongoing Cervical arthritis Chronic radicular lumbar pain Hip arthritis Lower limb region somatic dysfunction Lumbar region somatic dysfunction Sacral region somatic dysfunction Shoulder arthritis Stage 3 chronic kidney disease Thoracic region somatic dysfunction Historical No qualifying data Procedure/Surgical History section, Cornea, Hip replacement, Neck pain, Tubal ligation. Medications acyclovir 400 mg T (more content not included)... Normal [facility] Comment on above: Result Comment: Elec tronically Signed By: Cory RODRIGUEZ, Duc Frey\.br\Date and Time Signed: 01/22/25 14:10 EDT [place] 01-18-2025 FREDIN Telephone (PAINLN) GRACIE JONES ([id number]) 1950 F Date Time Provider Department 01/18/25 SUSIE MADDOX During your visit today, we recorded the following information about you: Kalina Britt LPN 01/18/2025 5:14 PM Signed Spoke with pt, scheduled for consult on 01/23/2025 (PB). Pt has not had any recent Lumbar imaging, pt instructed to go to any [facility] Radiology dept prior to scheduled appt and have Lumbar Xray completed. Per staff message: Sent: 01/16/2025 5:10 PM EDT To: Susie Maddox MD Subject: patient referral Good afternoon, I was hoping you could help me with this patient. She is having primarily SI joint irritation but also some sciatic nerve radiculopathy. She had a cortisone injection under ultrasound guidance at the SI joint recently a few weeks ago and had complete relief of her symptoms and then gradual return now to the point where is quite bothersome to her again. Also having sciatic nerve radicular symptoms as well. Sciatic symptoms were still present after the SI joint injection. Thanks. JENNIFER Hurt Barbara L, PA-C 01/18/2025 5:18 PM Signed Order placed for x-ray of the lumbar spine. Zeke Antoine PA-C January 18, 2025 Allergies As of Date: 01/18/2025 (No Known Allergies) Date Reviewed: 01/11/2025 Reviewed by: Danna Amin MA - Fully Assessed Reason for Visit: Appointment [[id number]] Primary Visit Diagnosis:Low back pain, unspecified back pain laterality, unspecified chronicity, unspecified whether sciatica present [M54.50] Order(s):XR LUMBAR LIMITED 2V AP/LAT [[id number]] Order #: [id number] FUTURE Prescriptions as of 01/18/2025 - vitamin b complex (B-COMPLEX) tab 1 tablet once daily. - turmeric 400 mg cap Take 1 capsule by mouth once daily. - Cholecalciferol, Vitamin D3, 50 mcg (2,000 unit) cap Take 2,000 Units by mouth once daily. Problem List As Of Date 01/18/2025 Noted Resolved Stage 3 chronic kidney disease (HCC) [N18.30] 12/09/2021 Hyperlipidemia, unspecified [E78.5] 04/06/2021 Pre-operative examination [Z01.818] 03/25/2022 Fuchs' corneal dystrophy of both eyes [H18.513] 03/25/2022 Elevated BP without diagnosis of hypertension [*09/02/2022 PONV (postoperative nausea and vomiting) [R11.2*02/18/2023 Primary osteoarthritis of right hip [M16.11] 02/18/2023 Hypotension due to hypovolemia [E86.1] 03/17/2023 Sinus bradycardia [R00.1] 03/17/2023 S/P hip replacement, right [Z96.641] 03/18/2023 Acute postoperative pain of right hip [G89.18, *03/18/2023 Aftercare following right hip joint replacement*04/13/20 Trochanteric bursitis of right hip [M70.61] 09/23/2023 Piriformis syndrome, right [G57.01] 03/28/2024 Sacroiliitis [M46.1] 12/07/2024 Right sciatic nerve pain [M54.31] 01/11/2025 Encounter Status:Closed by ZEKE ANTOINE on 01/18/25 [facility] CNOVon 01-11-2025 CNOV Office Visit (LOORRM) ROBERT,GRACIE ([id number]) 1950 F Date Time Provider Department 01/11/25 11:30 AM OLIVE AMAYA During your visit today, we recorded the following information about you: Olive Amaya PA-C 01/16/2025 5:10 PM Signed Recording using [employer] software for draft documentation of the visit was discussed with the patient/authorized hobbies and crafts sales representative; all questions welcomed and answered. Patient/authorized hobbies and crafts sales representative agreed to proceed Chief complaint: The patient is a 74-year-old female with degenerative arthritis of the spine, presenting for evaluation of persistent sacroiliac joint and hip pain following corticosteroid injection. HISTORY: Gracie is a 74 year old female. Hip and Back Pain: - Pain localized to the back and hip area. - Recent SI injection provided instant relief initially, but pain has returned. - Current pain described as an ache, rated 1-2/10. - Pain is less intense than before the injection, with no shooting pain down to the knee. - Gracie reports occasional sharp pain in the hip area. - Gracie experiences a sensation of the leg feeling long and drags the foot when tired. - Gracie continues to perform physical therapy exercises. - Gracie denies pain when bending forward or backward, but reports mild pain when tilting to the right. - No pain when walking on toes or heels, but Gracie reports feeling pain down the side of the leg. Patient has a past medical history, medications and allergies were reviewed. No other musculoskeletal complaints ROS : Musculoskeletal: (+) right buttock ache, (+) right buttock tenderness, (+) right buttock pain with right lateral bending, (-) low back pain Neurological: (+) shooting pain radiating to right knee, (+) foot drag when fatigued PAST MEDICAL HISTORY Diagnosis Date Stage 3 chronic kidney disease (HCC) 12/09/2021 PAST SURGICAL HISTORY Procedure Laterality Date SECTION HX x2 COLONOSCOPY SCREENING KERATOPLASTY ENDOTHELIAL Right 04/14/2022 KERATOPLASTY ENDOTHELIAL Left 03/17/2022 PAST SURGICAL HISTORY OF BLEPHAROPLASTY UPPER TOTAL HIP REPLACEMENT Right XR CERVICAL FUSION OR Medications reviewed. ALLERGIES No Known Allergies SOCIAL HISTORY[1] EXAMINATION: On physical exam today, - Musculoskeletal: - Hip: Good ROM; mild tenderness to palpation over lateral aspect. - SI Joint: Significant tenderness to palpation. - Lumbar Spine: No pain with flexion or extension; mild pain with right lateral flexion; no pain with left lateral flexion or rotation. - Neurological: Able to walk on toes and heels without difficulty; no radicular pain elicited during examination. Motor and sensory are otherwise intact today. RADIOGRAPHS: Personally reviewed by myself demonstrating Imaging: - X-ray: Leg length difference within approximately 1/8 inch, no significant discrepancy. Hip replacement components in satisfactory position with no evidence of wear or loosening. IMPRESSION: Encounter Diagnosis ICD-10-CM 1. Sacroiliitis M46.1 2. Right sciatic nerve pain M54.31 3. S/P hip replacement, right Z96.641 Plan: 1. Sacroiliitis (M46.1) 2. Right sciatic nerve pain (M54.31) - SI joint injection provided approximately 90% initial relief, with current pain at 50% of baseline; persistent ache and intermittent radicular symptoms noted. - Refer to pain management (Dr. Alonzo Maddox) for further evaluation and management, including assessment for possible ablation or additional SI joint interventions. - Advised patient to continue tracking pain and symptoms, noting any changes. - Discussed importance of avoiding lateral bending during gardening activities; encouraged squatting technique as preferable to bending for back health. 3. S/P hip replacement, right (Z96.641) Olive Amaya PA-C December 12:05 PM [1] Social History Tobacco Use Smoking status: Former Current packs/day: 0.00 Average packs/day: 0.2 packs/day for 1 year (0.2 ttl pk-yrs) Types: Cigarettes Start date: 1972 Quit date: 1973 Years since quittin.7 Smokeless tobacco: Never Substance Use Topics Alcohol use: Yes Comment: occasionally Drug use: Not Currently Comment: denies tx for drug/alcohol abuse in the past. Olive Amaya PA-C 01/11/2025 12:50 PM Signed - Expect a call from Dr. Maddox?s office (pain management) to schedule your next appointment. - Keep a pain diary: note the exact location, intensity, and any leg symptoms at least once a week and anytime you notice a change. - Avoid bending over at the waist to the affected side(right); when lifting or reaching, bend your knees and hips into a squat rather than hinging at your back. Referring Provider: SELF [200] Allergies As of Date: 01/11/2025 (No Known Allergies) Date Reviewed: 01/11/2025 Reviewed by: Danna Amin (more content not included)... Normal [facility] CNOVon 12-29-2024 CNOV Office Visit (LOORRM) GRACIE JONES ([id number]) 1950 F Date Time Provider Department 12/29/24 3:40 PM SHANEKA CLARK During your visit today, we recorded the following information about you: Shaneka Clark MD 12/29/2024 5:32 PM Signed Gracie Jones is here today at request of Olive Amaya PA-C specifically for an injection for the chief complaint listed below. Correspondence will be shared today via the [employer] electronic health record or through regular mail, where applicable. CHIEF COMPLAINT: Gracie Jones is a 74 year old female who presents today for an injection of the R SI joint. Previous notes and images reviewed pertinent to this complaint. ROS: Constitutional: Any recent fevers or recent infections? No Integumentary: Any recent skin changes or rashes over the area to be injected? No Neurologic: Any numbness or tingling in the area to be injected? No Endocrine: Any diagnosis of diabetes? No Nephrologic: Any diagnosis of kidney disease? No ALLERGIES: ALLERGIES No Known Allergies PAST MEDICAL HISTORY: PAST MEDICAL HISTORY Diagnosis Date Stage 3 chronic kidney disease (HCC) 12/09/2021 EXAM: No signs of infection overlying the injection site. IMAGING: A [employer] M-X-BOLT Orthapaedicso ultrasound laptop unit with a variable frequency (5-2 MHz) curvilinear transducer was used to evaluate and inject the R SI joint. LABS: Hemoglobin A1C (%) Date Value 01/07/2023 5.4 Creatinine Date Value Ref Range Status 03/19/2023 0.92 0.58 - 0.96 mg/dL Final 03/18/2023 0.98 (H) 0.58 - 0.96 mg/dL Final 01/07/2023 0.92 0.58 - 0.96 mg/dL Final No results found for: GFR Risks, benefits, and indications for diagnostic/therapeut ic corticosteroid injections discussed. Risks include, but are not limited to: -Increase in blood sugar if the patient has a diagnosis of diabetes. Moreover, we discussed that the patient is not eligible for a steroid injection today if their A1c is >/=8.0 or if they report large daily swings in blood sugar that this provider deems unsafe for injection. If this is the case, they will need to follow up with their PCP or referring provider after this appointment and may return for an injection once their blood sugar is under better control and A1c is <8.0. -Risk of cosmetic changes to the skin, like lightening of the skin or dimpling of the skin over the injection site - a known side effect of steroid injections. -Risk of a steroid flare, which is an immune response to the steroid that can cause symptoms such as facial flushing and worsening pain in the area of the injection. These symptoms may last 1-2 days and generally resolve without termite renewal inspector issues. -Risk of allergic reactions to the lidocaine or steroid can occur. If you have a known allergy to lidocaine or any steroid, please notify your doctor immediately. -Risk of bleeding and infection anytime we break the skin with a needle. Signs of infection are redness, warmth, swelling, worsening pain in the area of the injection, sometimes fevers and chills. If the patient has any of these symptoms, they should seek medical care right away, either with us or the emergency room. After discussing the risks and benefits discussed above, the patient made an informed decision in the presence of a second democrat (Bernie Baum) to proceed with the injection. Injection performed as detailed in the procedure note below. CLINICAL IMPRESSION / ASSESSMENT: (M46.1) Sacroiliitis (primary encounter diagnosis) PLAN: Large Joint Arthro/Inj (R SI joint) 12/29/2024 4:55 PM The procedure site was prepped in the usual sterile fashion. Details:Musculoskele christofer ultrasound was utilized to successfully localize placement of the injection needle at the appropriate site. Ultrasound images demonstrating local vasculature and demonstrating injection of solution were saved. Medications: 6 mg betamethasone acetate-betamethason e sodium phosphate 6 mg/mL Anesthetics: 5 mL lidocaine (PF) 10 mg/mL (1 %); 3 mL ROPivacaine (PF) 5 mg/mL (0.5 %) Outcome: Tolerated well, no immediate complications Post-injection instructions were reviewed with the patient and the patient voiced understanding of these instructions. Informed Consent Consent Obtained: Verbal [place] Protocol A moment to CARE was completed. [...] procedure verified. No fire risk assessment and interventi (more content not included)... Normal [facility] Large Joint Arthro/Injon Shaneka Clark MD 12/29/2024 5:32 PM Large Joint Arthro/Inj (R SI joint) 12/29/2024 4:55 PM The procedure site was prepped in the usual sterile fashion. Details:Musculoskele christofer ultrasound was utilized to successfully localize placement of the injection needle at the appropriate site. Ultrasound images demonstrating local vasculature and demonstrating injection of solution were saved. Medications: 6 mg betamethasone acetate-betamethason e sodium phosphate 6 mg/mL Anesthetics: 5 mL lidocaine (PF) 10 mg/mL (1 %); 3 mL ROPivacaine (PF) 5 mg/mL (0.5 %) Outcome: Tolerated well, no immediate complications Post-injection instructions were reviewed with the patient and the patient voiced understanding of these instructions. Informed Consent Consent Obtained: Verbal [place] Protocol A moment to CARE was completed. [...] the bedside nurse for hospitalized patients) applicable. [facility] US HIP-INJECTION RT (POC) OR I USE ONLYon 12-29-2024 [facility] CNOVon 12-07-2024 CNOV Office Visit (LOORRM) GRACIE JONES ([id number]) 1950 F Date Time Provider Department 12/07/24 12:30 PM OLIVE AMAYA During your visit today, we recorded the following information about you: Olive Amaya PA-C 12/15/2024 12:46 PM Signed This document has been created with the use of voice recognition technology. It may contain inaccuracies: misspellings, inaccurate syntax or word sense that escaped review. Chief complaint: Recheck of right hip and back pain HISTORY: Gracie is a 74 year old female. Patient comes in today for follow up of her right hip and back. Patient has a past medical history, medications and allergies were reviewed. She reports that she has had no real improvement in her symptoms and no lasting help with the dry needling. She states her pain level is still constant 4/10 in the lower lumbar spine on the right in the area of the SI joint and significant discomfort at the lateral aspect of the right hip if she lays on her right side though she has no pain in the right lateral hip with activity, so that is improved. She is very frustrated. No other musculoskeletal complaints PAST MEDICAL HISTORY [...] date: 1972 Quit date: 1973 Years since quittin.6 Smokeless tobacco: Never Substance Use Topics Alcohol use: Yes Comment: occasionally Drug use: Not Currently Comment: denies tx for drug/alcohol abuse in the past. EXAMINATION: GENERAL: Appears healthy, well-nourished, no deformities. ORIENTATION: Alert and oriented to person place and time HABITUS: Normal GAIT: Antalgic to the right On physical exam of the right hip today, she has excellent hip range of motion without hip irritability or tightness which is improved. Still has moderate tenderness over the greater trochanter. She has significant tenderness at the SI joint on the right. None on the left. No sciatic notch tenderness. General lower lumbar tenderness to a lesser degree. Fairly good lower lumbar spine range of motion. Negative SLR for radicular symptoms. Neurovascularly is intact. RADIOGRAPHS: None needed today. IMPRESSION: Encounter Diagnosis ICD-10-CM 1. Trochanteric bursitis of right hip M70.61 Large Joint Arthro/Inj: R greater trochanteric bursa 2. Sacroiliitis M46.1 Large Joint Arthro/Inj: R greater trochanteric bursa Plan: We discussed that her primary symptoms are that of sacroiliitis but she still has significant trochanteric bursitis as well. Her symptoms have not been relieved with conservative treatments and would like to consider cortisone injection for bursitis today. However her biggest complaint is sacroiliitis and will arrange for intra-articular injection under ultrasound guidance with in the near future. She agrees with this plan. Large Joint Arthro/Inj: R greater trochanteric bursa [...] these instructions. Informed Consent Consent Obtained: Verbal [place] Protocol A moment to CARE was completed. [...] communicated to the patient or surrogate. Third democrat verified by Danna Amin MA. Olive Amaya PA-C December 07, 2024 12:32 PM Olive Amaya PA-C 12/07/2024 1:48 PM Signed Referring Provider: SELF [200] Allergies As of Date: 12/07/2024 (No Known Allergies) Date Reviewed: 10/06/2024 (more content not included)... Normal [facility] Large Joint Arthro/Inj: R gr eater trochanteric bursaon 12-07-2024 Olive Amaya PA-C 12/15/2024 12:46 PM Large Joint [...] these instructions. Informed Consent Consent Obtained: Verbal [place] Protocol A moment to CARE was completed. [...] communicated to the patient or surrogate. Third democrat verified by Danna Amin MA. [facility] Jorgito 11-10-2024 VALERIE Telephone (ALEXANDRA) GRACIE JONES ([id number]) 1950 F Date Time Provider Department 11/10/24 OLIVE AMAYA During your visit today, we recorded the following information about you: Florina Jerez, RN 11/10/2024 8:55 AM Signed [phone][facility] calling in to office. -States Pt is in their facility for PT/dry needling, but they need a signed order faxed to their office to be able to complete this for Pt. -Noted the order is in the system. Order dated 10/06/2024. Poppy states the order has to be dated within the last 30 days. States if the provider will sign and date the existing order and have that faxed to her office--that will be fine. -Please call Poppy with any concerns. Allergies As of Date: 11/10/2024 (No Known Allergies) Date Reviewed: 10/06/2024 Reviewed by: Danna Amin MA - Fully Assessed Reason for Visit: PT Order [Other] Prescriptions as of 11/10/2024 - turmeric 400 mg cap Take 1 capsule by mouth once daily. - Cholecalciferol, Vitamin D3, 50 mcg (2,000 unit) cap Take 2,000 Units by mouth once daily. Problem List As Of Date 11/10/2024 Noted Resolved Stage 3 chronic kidney disease (HCC) [N18.30] 12/09/2021 Hyperlipidemia, unspecified [E78.5] 04/06/2021 Pre-operative examination [Z01.818] 03/25/2022 Fuchs' corneal dystrophy of both eyes [H18.513] 03/25/2022 Elevated BP without diagnosis of hypertension [*09/02/2022 PONV (postoperative nausea and vomiting) [R11.2*02/18/2023 Primary osteoarthritis of right hip [M16.11] 02/18/2023 Hypotension due to hypovolemia [E86.1] 03/17/2023 Sinus bradycardia [R00.1] 03/17/2023 S/P hip replacement, right [Z96.641] 03/18/2023 Acute postoperative pain of right hip [G89.18, *03/18/2023 Aftercare following right hip joint replacement*04/13/20 23 Trochanteric bursitis of right hip [M70.61] 09/23/2023 Piriformis syndrome, right [G57.01] 03/28/2024 Encounter Status:Closed by FLORINA JEREZ on 11/10/24 Normal [facility] Basophils Auto (Bld) [#/Vol] Ordered By: Lyndsay Dunbar on 11-09-2024 Basophils (Bld) [#/Vol] 0.1 10 3/uL 0.0-0.1 [facility] Basophils/100 WBC Auto (Bld) Ordered By: Lyndsay Dunbar on 11-09-2024 Basophils/100 WBC (Bld) 1.2 % 0.2-2.0 [facility] Cholesterol in LDL Calc [Mas s/Vol]Ordered By: Lyndsay Dunbar on 11-09-2024 Cholesterol in LDL [Mass/Vol] 107.0 mg/dL [facility] Comment on above: <100 mg/dl [id number] 0-129 mg/dl NEAR OR ABOVE [id number] mg/dl BORDERLINE [id number] mg/dl HIGH>190 mg/dl VERY HIGH Cholesterol in VLDL Calc [Ma ss/Vol]Ordered By: Lyndsay Dunbar on 11-09-2024 Cholesterol in VLDL [Mass/Vol] 10.6 mg/dL [facility] Eosinophils/100 WBC Auto (Bl d)Ordered By: Lyndsay Dunbar on 11-09-2024 Eosinophils/100 WBC (Bld) 4.8 % 0.9-7.0 [facility] Erythrocyte distribution wid th Auto (RBC) [Ratio]Ordered By: Lyndsay Dunbar on 11-09-2024 Erythrocyte distribution width (RBC) [Ratio] 14.2 % 11.0-15.0 [facility] Estimated glomerular filtrat ion rate (GFR) non- AmericanOrdered By: Lyndsay Torres on 11-09-2024 GFR/1.73 sq M.predicted among non-blacks MDRD (S/P/Bld) [Vol rate/Area] 51 mL/min/{1.73_m2} Low >=60 mL/min/1.73m 2 [facility] Globulin Calc (S) [Mass/Vol] Ordered By: Lyndsay Torres on 11-09-2024 Globulin (S) [Mass/Vol] 3.6 g/dL [facility] Hematocrit Auto (Bld) [Volum e fraction]Ordered By: Lyndsay Dunbar on 11-09-2024 Hematocrit (Bld) [Volume fraction] 44.6 % 36.0-48.0 [facility] Hemoglobin [Mass/volume] in BloodOrdered By: Lyndsay Dunbar on 11-09-2024 Hemoglobin (Bld) [Mass/Vol] 15.0 g/dL 12.0-16.0 [facility] Laboratory - Chemistry and C hemistry - challengeOrdered By: Lyndsay Torres on 11-09-2024 Albumin [Mass/Vol] 3.6 g/dL 3.4-5.0 [facility] ALP [Catalytic activity/Vol] 84 U/L 46-116 [facility] ALT [Catalytic activity/Vol] 42 U/L 14-59 [facility] AST [Catalytic activity/Vol] 41 U/L High 15-37 [facility] Bilirubin [Mass/Vol] 0.9 mg/dL 0.2-1.0 [facility] Calcium [Mass/Vol] 8.8 mg/dL 8.5-10.1 [facility] Chloride [Moles/Vol] 103 mmol/L 98-107 [facility] CO2 [Moles/Vol] 28.8 mmol/L 21.0-32.0 [facility] Creatinine [Mass/Vol] 1.06 mg/dL High 0.55-1.02 [facility] GFR/1.73 sq M.predicted MDRD (S/P/Bld) [Vol rate/Area] mL/min/{1.73_m2} >=60 mL/min/1.73m 2 [facility] Glucose [Mass/Vol] 95 mg/dL 74-106 [facility] Potassium [Moles/Vol] 4.0 mmol/L 3.5-5.1 [facility] Protein [Mass/Vol] 7.2 g/dL 6.4-8.2 [facility] Sodium [Moles/Vol] 140 mmol/L 136-145 [facility] Urea nitrogen [Mass/Vol] 17.0 mg/dL 7.0-18.0 [facility] Urea nitrogen/Creatinine [Mass ratio] 16.0 mg/mg [facility] Bilirubin Ql (U) Negative NEGATIVE [facility] Glucose (U) [Mass/Vol] Negative [facility] Negative NEGATIVE [facility] pH (U) 6.5 [pH] 5.0-9.0 [facility] Specific gravity (U) [Rel density] 1.010 1.005-1.025 [facility] Urobilinogen Qn (U) 0.2 {Prasanna'U}/dL 0.2-1.0 [facility] Laboratory - Chemistry and C hemistry - challengeOrdered By: Lyndsay Dunbar on 11-09-2024 Cholesterol [Mass/Vol] 202 mg/dL High <=200 [facility] Cholesterol in HDL [Mass/Vol] 85 mg/dL High 40-60 [facility] Comment on above: > or =60 mg/dl - LOW CARDIOVASCULAR RISK<40 mg/dl - HIGH CARDIOVASCULAR RISK Triglyceride [Mass/Vol] 53 mg/dL <=150 [facility] Laboratory - Hematology and Cell countsOrdered By: Lyndsay Dunbar on 11-09-2024 Immature granulocytes/100 WBC (Bld) 0.4 % 0.0-0.5 [facility] Laboratory - Specimen inform ationOrdered By: Lyndsay Torres on 11-09-2024 Appearance (U) CLEAR CLEAR [facility] Color (U) LT. YELLOW YELLOW [facility] Laboratory - UrinalysisOrder ed By: Lyndsay Torres on 11-09-2024 Leukocyte esterase Test strip Ql (U) SMALL Abnormal NEGATIVE [facility] Nitrite Ql (U) Negative NEGATIVE [facility] Protein Ql (U) Negative NEG/TRACE [facility] Leukocytes [#/volume] correc aniket for nucleated erythrocytes in Blood by Automated counOrdered By: Lyndsay Dunbar on 11-09-2024 WBC corrected for nucl RBC Auto (Bld) [#/Vol] 5.6 10 3/uL 4.0-11.0 [facility] Lymphocytes Auto (Bld) [#/Vo l]Ordered By: Lyndsay Dunbar on 11-09-2024 Lymphocytes (Bld) [#/Vol] 1.5 10 3/uL 1.2-3.8 [facility] Lymphocytes/100 WBC Auto (Bl d)Ordered By: Lyndsay Dnubar on 11-09-2024 Lymphocytes/100 WBC (Bld) 27.0 % 20.5-60.0 [facility] MCH Auto (RBC) [Entitic mass ]Ordered By: Lyndsay Dunbar on 11-09-2024 MCH (RBC) [Entitic mass] 30.5 pg 26.7-34.0 [facility] MCHC Auto (RBC) [Mass/Vol]Or dered By: Lyndsay Dunbar on 11-09-2024 MCHC (RBC) [Mass/Vol] 33.6 g/dL 29.9-35.2 [facility] MCV Auto (RBC) [Entitic vol] Ordered By: Lyndsay Dunbar on 11-09-2024 MCV (RBC) [Entitic vol] 90.8 fL 81.0-99.0 [facility] Monocytes Auto (Bld) [#/Vol] Ordered By: Lyndsay Dunbar on 11-09-2024 Monocytes (Bld) [#/Vol] 0.6 10 3/uL 0.3-0.8 [facility] Monocytes/100 WBC Auto (Bld) Ordered By: Lyndsay Dunbar on 11-09-2024 Monocytes/100 WBC (Bld) 9.9 % 1.7-12.0 [facility] Neutrophils Auto (Bld) [#/Vo l]Ordered By: Lyndsay Dunbar on 11-09-2024 Neutrophils (Bld) [#/Vol] 3.2 10 3/uL 1.4-6.5 [facility] Neutrophils/100 WBC Auto (Bl d)Ordered By: Lyndsay Dunbar on 11-09-2024 Neutrophils/100 WBC (Bld) 56.7 % 43.0-75.0 [facility] No Panel InformationOrdered By: Lyndsay Dunbar on 11-09-2024 Eosinophils # (Auto) 0.3 10 3/uL 0.0-0.7 [facility] Immature Granulocyte # (Auto) 0.02 10 3/uL 0.00-0.03 [facility] No Panel InformationOrdered By: Lyndsay Torres on 11-09-2024 Urine Occult Blood TRACE-I NEGATIVE [facility] Platelet mean volume Auto (B ld) [Entitic vol]Ordered By: Lyndsay Dunbar on 11-09-2024 Platelet mean volume (Bld) [Entitic vol] 9.8 fL 9.5-13.5 [facility] Platelets Auto (Bld) [#/Vol] Ordered By: Lyndsay Dunbar on 11-09-2024 Platelets (Bld) [#/Vol] 245 10 3/uL 150-450 [facility] RBC Auto (Bld) [#/Vol]Ordere d By: Lyndsay Dunbar on 11-09-2024 RBC (Bld) [#/Vol] 4.91 10 6/uL 4.20-5.40 [facility] Serum or plasma albumin/glob ulin mass ratioOrdered By: Lyndsay Torres on 11-09-2024 Albumin/Globulin [Mass ratio] 1.0 {ratio} [facility] Serum or plasma anion gap de terminationOrdered By: Lyndsay Torres on 11-09-2024 Anion gap [Moles/Vol] 12.2 mmol/L [facility] Serum or plasma total choles terol/high density lipoprotein (HDL) cholesterol mass ratOrdered By: Lyndsay Dunbar on 11-09-2024 Cholesterol.total/Mariana sterol in HDL [Mass ratio] 2.4 {ratio} [facility] Comment on above: 3.3 - 4.4 LOW RISK4. 4 - 7.1 AVERAGE RISK7.1 - 11.0 MODERATE RISK>11.0 HIGH RISK Urine Cultureon 11-09-2024 Bacteria identified Cx Nom (U) <9,000 colonies/ml mixed bacterial skin contaminants 2 Days PERFORMED BY: [facility] [address] [place] [address] PATHOLOGIST ORACLE APPLICATIONS ANALYST BELLE BENNETT M.D. Normal [facility] Comment on above: Performed By: #### C UU #### [address] Urine cultureOrdered By: Jc Dunbar on 11-09-2024 Bacteria identified Cx Nom (U) 2 Days [facility] CNOVon 10-06-2024 CNOV Office Visit (LOORRM) GRACIE JONES ([id number]) 1950 F Date Time Provider Department 10/06/24 9:00 AM OLIVE AMAYA LOORRJorge During your visit today, we recorded the [...] PA-C 10/06/2024 10:18 AM Signed Recording using [employer] software for draft documentation of the visit was discussed with the patient/authorized hobbies and crafts sales representative; all questions welcomed and answered. Patient/authorized hobbies and crafts sales representative agreed to proceed Chief complaint: Gracie [...] hip replacement (more content not included)... Normal [facility] XR HIP 3V PELV+ AP/LAT RTon [...] IMPRESSION: Right total hip arthroplasty without complication. 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 Commander: PSCB Transcribe Date/Time: Oct 06 2024 9:12A Dictated by : RENA MUSE MD This examination was interpreted and the report reviewed and electronically signed by: ISAIAH MONROY MD on Oct 06 2024 9:29AM EST [id number] CN Normal [facility] CNOVon 03-28-2024 CNOV Office Visit (LOORRM) GRACIE JONES ([id number]) 1950 F Date Time Provider Department 03/28/24 8:00 AM OLIVE AMAYALORRIJorge During your visit today, we recorded the [...] Established Patient [175] Pain [78] Primary Visit Diagnosis:Trochanter ic bursitis of righ (more content not included)... Normal [facility] XR PELVIS 1V APon 03-28-2024 XR [...] tubal ligation clips. IMPRESSION: NO ACUTE FINDINGS. 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 Commander: ANDREW Transcribe Date/Time: Mar 28 2024 8:37A Dictated by : RONNY SOOD MD This examination was interpreted and the report reviewed and electronically signed by: RONNY SOOD MD on Mar 28 2024 8:38AM EST [id number] CN Normal [facility] XR Pelvis APon 03-28-2024 IMPRESSION: NO ACUTE FINDINGS. 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 Commander: ANDREW Transcribe Date/Time: Mar 28 2024 8:37A Dictated by : RONNY SOOD MD This examination was interpreted and the report reviewed and electronically signed by: RONNY SOOD MD on Mar 28 2024 8:38AM [facility] DIVISION OF RADIOLOGY * * *Final [...] tubal ligation clips. DIVISION OF RADIOLOGY Provider, [facility] - 03/28/2024 * * *Final Report* [...] ligation clips. IMPRESSION IMPRESSION: NO ACUTE FINDINGS. 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 Commander: ANDREW Transcribe Date/Time: Mar 28 2024 8:37A Dictated by : RONNY SOOD MD This examination was interpreted and the report reviewed and electronically signed by: RONNY SOOD MD on Mar 28 2024 8:38AM EST [facility] Radiology Study observation (narrative) Sandra barnhart [facility] XR Pelvis APOrdered By: Ccf Provider on 03-28-2024 [facility] Cholesterol in LDL Calc [Mas s/Vol]on 10-09-2023 Cholesterol in LDL [Mass/Vol] 125.0 mg/dL [facility] Comment on above: <100 mg/dl [id number] 0-129 mg/dl NEAR OR ABOVE KIBPBWA128-431 mg/dl BORDERLINE GKNY864-347 mg/dl HIGH>190 mg/dl VERY HIGH Cholesterol in VLDL Calc [Ma ss/Vol]on 10-09-2023 Cholesterol in VLDL [Mass/Vol] 7.8 mg/dL [facility] Estimated glomerular filtrat ion rate (GFR) non- Americanon 10-09-2023 GFR/1.73 sq M.predicted among non-blacks MDRD (S/P/Bld) [Vol rate/Area] 56 mL/min/{1.73_m2} >=60 [facility] Globulin Calc (S) [Mass/Vol] on 10-09-2023 Globulin (S) [Mass/Vol] 5.0 g/dL F [facility] Laboratory - Chemistry and C hemistry - challengeon 10-09-2023 Albumin [Mass/Vol] 3.6 g/dL 3.4-5.0 [facility] ALP [Catalytic activity/Vol] 80 U/L 46-116 [facility] ALT [Catalytic activity/Vol] 30 U/L 14-59 [facility] AST [Catalytic activity/Vol] 34 U/L 15-37 [facility] Bilirubin [Mass/Vol] 0.9 mg/dL 0.2-1.0 [facility] Calcium [Mass/Vol] 9.3 mg/dL 8.5-10.1 [facility] Chloride [Moles/Vol] 101 mmol/L 98-107 [facility] Cholesterol [Mass/Vol] 212 mg/dL <=[address] [facility] Cholesterol in HDL [Mass/Vol] 80 mg/dL 40-60 [facility] Comment on above: > or =60 mg/dl - LOW CARDIOVASCULAR RISK<40 mg/dl - HIGH CARDIOVASCULAR RISK CO2 [Moles/Vol] 28.3 mmol/L 21.0-32.0 [facility] Creatinine [Mass/Vol] 0.97 mg/dL 0.55-1.02 [facility] GFR/1.73 sq M.predicted MDRD (S/P/Bld) [Vol rate/Area] mL/min/{1.73_m2} >=60 [facility] Glucose [Mass/Vol] 91 mg/dL 74-106 [facility] Potassium [Moles/Vol] 3.8 mmol/L 3.5-5.1 [facility] Protein [Mass/Vol] 8.6 g/dL 6.4-8.2 [facility] Sodium [Moles/Vol] 137 mmol/L 136-145 [facility] Triglyceride [Mass/Vol] 39 mg/dL <=150 F [facility] Urea nitrogen [Mass/Vol] 14.0 mg/dL 7.0-18.0 [facility] Urea nitrogen/Creatinine [Mass ratio] 14.4 mg/mg [facility] Serum or plasma albumin/glob ulin mass ratioon 10-09-2023 Albumin/Globulin [Mass ratio] 0.7 {ratio} [facility] Serum or plasma anion gap de terminationon 10-09-2023 Anion gap [Moles/Vol] 11.5 mmol/L [facility] Serum or plasma total choles terol/high density lipoprotein (HDL) cholesterol mass felix 10-09-2023 Cholesterol.total/Mariana sterol in HDL [Mass ratio] 2.7 {ratio} [facility] Comment on above: 3.3 - 4.4 LOW RISK4. 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: [facility] Transcribe Date/Time: Sep 23 2023 10:54A Dictated by : REFUGIO CARRERA MD This examination was interpreted and the report reviewed and electronically signed by: REFUGIO CARRERA MD on Sep 23 2023 10:56AM EST [facility] Radiology Study [facility] (narrative) [facility] Pelvis APOrdered By: [facility] Provider on 09-23-2023 [facility] A1C HEMOGLOBINon 04-15-2023 HbA1c (Bld) [Mass fraction] 5.5 % [employer] Other HbA1c (Bld) [Mass fraction]o n 04-15-2023 A1C HEMOGLOBIN [facility] [employer] Other CBC panel Auto (Bld)on 04-13 Erythrocyte distribution width (RBC) [Ratio] 14.1 % 11.5 - 15.0 % [facility] Hematocrit (Bld) [Volume fraction] 40.1 % 36.0 - 46.0 % [facility] Hemoglobin (Bld) [Mass/Vol] 12.6 g/dL 11.5 - 15.5 g/dL [facility] MCH (RBC) [Entitic mass] 30.7 pg 26.0 - 34.0 pg [facility] MCHC (RBC) [Mass/Vol] 31.4 g/dL 30.5 - 36.0 g/dL [facility] MCV (RBC) [Entitic vol] 97.8 fL 80.0 - 100.0 fL [facility] Nucleated RBC (Bld) [#/Vol] <0.01 k/uL [facility] Platelet mean volume (Bld) [Entitic vol] 10.2 fL 9.0 - 12.7 fL [facility] Platelets (Bld) [#/Vol] 394 10*3/uL 150 - 400 k/uL [facility] RBC (Bld) [#/Vol] 4.10 10*6/uL 3.90 - 5.2 0 m/uL [facility] WBC (Bld) [#/Vol] 7.33 10*3/uL 3.70 - 11. 00 k/uL [facility] XR PELVIS 1V APon 04-13-2023 [facility] XR Pelvis APon 04-13-2023 IMPRESSION: Right total hip arthroplasty without complication.. 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 DIVISION OF RADIOLOGY Provider, [facility] [place] - 04/13/2023 * * *Final Report* * [...] IMPRESSION: Right total hip arthroplasty without complication.. 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 Commander: PSCB Transcribe Date/Time: Apr 13 2023 10:59A Dictated by : VINI PADGETT MD This examination was interpreted and the report reviewed and electronically signed by: VALERIE COTTON MD on Apr 13 2023 3:29PM EST [facility] Radiology Study observation (narrative) [facility] X[facility] Pelvis APOrdered By: [facility] Provider on 04-13-2023 [facility] Basic metabolic 2000 panelon 03-19-2023 Anion gap [Moles/Vol] 8 mmol/L Low 9-18 [facility] Comment on above: Order Comment: Speci men Type: BLOOD SPECIMENOrdering Facility: [facility] Address: [address] [place] [address] Performed By: #### 2 4321-2 ####[facility] LABORATORYCLIA [id number] [facility] [place] [address] [place] Calcium [Mass/Vol] 7.9 mg/dL Low 8.5-10.2 [facility] Comment on above: Order Comment: Speci men Type: BLOOD SPECIMENOrdering Facility: [facility] Address: [address] [place] [address] Performed By: #### 2 4321-2 ####[facility] LABORATORYCLIA [id number] [place] [address] [place] Chloride [Moles/Vol] 92 mmol/L Low 97-105 [facility] Comment on above: Order Comment: Speci men Type: BLOOD SPECIMENOrdering Facility: [facility] Address: [address] [place] [address] Performed By: #### 2 4321-2 ####[facility] LABORATORYIA [id number] [place] [address] [place] CO2 [Moles/Vol] 27 mmol/L Normal 22-30 [facility] Comment on above: Order Comment: Speci men Type: BLOOD SPECIMENOrdering Facility: [facility] Address: [address] [place] [address] Performed By: #### 2 4321-2 ####[facility] [id number] [place] [address] [place] Creatinine [Mass/Vol] 0.92 mg/dL Normal 0.58-0.96 [facility] Comment on above: Order Comment: Speci men Type: BLOOD SPECIMENOrdering Facility: [facility] Address: [address] [place] [address] Performed By: #### 2 4321-2 ####[facility] LABORATORYIA [id number] [place] [address] [place] Creatinine and Glomerular filtration rate.predicted panel (S/P/Bld) 67 mL/min/1.73m??? Normal >=60 [facility] Comment on above: Order Comment: Speci men Type: BLOOD SPECIMENOrdering Facility: [facility] Address: [address] [place] [address] Result Comment: Sabrina mated Glomerular Filtration Rate [...] actual GFR. Performed By: #### 2 4321-2 ####[facility] [id number] [place] [address] [place] Glucose [Mass/Vol] 121 mg/dL High 74-99 [facility] Comment on above: Order Comment: Elena adkins Type: BLOOD SPECIMENOrdering Facility: [facility] Address: [address] [place] [address] Result Comment: The [place] Diabetes Association (ADA) provides guidance for cutoff [...] Standards of Medical Care in Diabetes 2016, [place] [employer]. Diabetes Care. 2016.39(Suppl 1). Performed By: #### 2 4321-2 ####[facility] [id number] [place] [address] [place] Potassium [Moles/Vol] 4.3 mmol/L Normal 3.7-5.1 [facility] Comment on above: Order Comment: Elena adkins Type: BLOOD SPECIMENOrdering Facility: [facility] Address: [address] [place] [address] Performed By: #### 2 4321-2 ####[facility] [id number] [place] [address] [place] Sodium [Moles/Vol] 127 mmol/L Low 136-144 [facility] Comment on above: Order Comment: Elena adkins Type: BLOOD SPECIMENOrdering Facility: [facility] Address: [address] [place] [address] Performed By: #### 2 4321-2 ####[facility] LABORATORYCLIA [id number] [place] [address] [place] Urea nitrogen [Mass/Vol] 15 mg/dL Normal 7-21 [facility] Comment on above: Order Comment: Speci men Type: BLOOD SPECIMENOrdering Facility: [facility] Address: [address] [place] [address] Performed By: #### 2 4321-2 ####[facility] LABORATORYIA [id number] [place] [address] [facility] [place] CBC panel Auto (Bld)on 03-19 Erythrocyte distribution width (RBC) [Ratio] 12.8 % Normal 11.5-15.0 [facility] Comment on above: Order Comment: Speci men Type: BLOOD SPECIMENOrdering Facility: [facility] Address: [address] [place] [address] Performed By: #### 5 8410-2 ####[facility] [id number] [place] [address] [place] Hematocrit (Bld) [Volume fraction] 21.9 % Low 36.0-46.0 [facility] Comment on above: Order Comment: Speci men Type: BLOOD SPECIMENOrdering Facility: [facility] Address: [address] [place] [address] Performed By: #### 5 8410-2 ####[facility] LABORATORYIA [id number] [facility] [place] [address] [place] Hemoglobin (Bld) [Mass/Vol] 7.4 g/dL Low 11.5-15.5 [facility] Comment on above: Order Comment: Speci men Type: BLOOD SPECIMENOrdering Facility: [facility] Address: [address] [place] [address] Performed By: #### 5 8410-2 ####[facility] LABORATORYIA [id number] [place] [address] [place] MCH (RBC) [Entitic mass] 30.8 pg Normal 26.0-34.0 [facility] Comment on above: Order Comment: Speci men Type: BLOOD SPECIMENOrdering Facility: [facility] Address: [address] [place] [address] Performed By: #### 5 8410-2 ####[facility] [id number] [place] [address] [place] MCHC (RBC) [Mass/Vol] 33.8 g/dL Normal 30.5-36.0 [facility] Comment on above: Order Comment: Speci men Type: BLOOD SPECIMENOrdering Facility: [facility] Address: [address] [place] [address] Performed By: #### 5 8410-2 ####[facility] [id number] [address] [place] MCV (RBC) [Entitic vol] 91.3 fL Normal 80.0-100.0 [facility] Comment on above: Order Comment: Speci men Type: BLOOD SPECIMENOrdering Facility: [facility] Address: [address] [place] [address] Performed By: #### 5 8410-2 ####[facility] [id number] [place] [address] [place] Nucleated RBC (Bld) [#/Vol] 10*3/uL Normal <0.01 [facility] Comment on above: Order Comment: Speci men Type: BLOOD SPECIMENOrdering Facility: [facility] Address: [address] [place] [address] Performed By: #### 5 8410-2 ####[facility] [id number] [place] [address] [place] Platelet mean volume (Bld) [Entitic vol] 10.4 fL Normal 9.0-12.7 [facility] Comment on above: Order Comment: Speci men Type: BLOOD SPECIMENOrdering Facility: [facility] Address: [address] [place] [address] Performed By: #### 5 8410-2 ####[facility] [id number] [facility] [place] [address] [facility] [place] Platelets (Bld) [#/Vol] 169 10*3/uL Normal 150-400 [facility] Comment on above: Order Comment: Speci men Type: BLOOD SPECIMENOrdering Facility: [facility] Address: [address] [place] [address] Performed By: #### 5 8410-2 ####[facility] LABORATORYCLIA [id number] [place] [id number] [place] RBC (Bld) [#/Vol] 2.40 10*6/uL Low 3.90-5.20 [facility] Comment on above: Order Comment: Speci men Type: BLOOD SPECIMENOrdering Facility: [facility] Address: [address] [place] [address] Performed By: #### 5 8410-2 ####[facility] LABORATORYCLIA [id number] [place] [address] [facility] [place] WBC (Bld) [#/Vol] 8.20 10*3/uL Normal 3.70-11.00 [facility] Comment on above: Order Comment: Speci men Type: BLOOD SPECIMENOrdering Facility: [facility] Address: [address] [place] [address] Performed By: #### 5 8410-2 ####[facility] [id number] [place] [address] [facility] CNDSon 03-19-2023 DS HNO ID: [id number] Author: Maira Mora PA-C Service: Orthopaedic Surgery Author Type: Physician Assembler [employer] Type: Discharge Summary Filed: 03/19/2023 12:52 PM [...] two times a day for 28 days. HYDROcodone-acetamin ophen 5-325 mg per tablet Commonly known as: [...] Medications These medications were sent to e- [facility]/pharmacy #[facility] - [address] [phone] [place] [address] aspirin, enteric coated 81 mg EC tablet HYDROcodone-acetamin ophen 5-325 mg per tablet methocarbamol 500 mg tablet senna 8.6 mg Tab You can get these medications from any pharmacy You don't need a prescription for these medications acetaminophen 500 mg tablet Future Appointments: Appointments for Next 60 Days Date Time Provider Location Dept Phone 04/13/2023 10:30 AM OLIVE AMAYA [phone] 04/16/2023 10:15 AM ALEX FREDERICK I [facility] [phone] 04/29/2023 12:15 PM ISAIAH ARRIAGA [phone] SIGNATURE: Maira Mora PA-C PATIENT NAME: Gracie Jones DATE: 03/19/23 TIME: 12:44 PM Normal [facility] NURSING PROGon 03-19-2023 NURSING PROG HNO ID: [id number] Author: Mary Weller RN Service: Nursing Author Type: Registered Nurse Type: Nursing Progress Note Filed: 03/19/2023 12:50 PM Note Text: Other: Alert and oriented X 3. No significant changed in condition. Medicated with prn pain medication for c/o right hip pain. Medicated with prn Zofran for c/o nausea. Family at bedside. 1249: Discharged instructions explained to her and she verbalized understanding. [facility] THERAPY NTon 03-19-2023 THERAPY NT HNO ID: [id number] Author: Mahi Rosales OTR/L Service: Occupational Therapy Author Type: Occupational Therapist Type: Therapy (PT/OT/Speech/Resp) Filed: 03/19/2023 9:50 AM Note Text: Occupational Therapy Treatment SERVICE DATE: 03/19/2023 SERVICE TIME: 921 to 945 ROOM: [place] [address] Total Joint Replacement Discharge Readiness: Cleared from [...] Literacy, Safety Awareness, Motivation, Open to Adaptive Equipment/Strategies , Strong Awareness of Deficit(s), Effective Communication Skills, [...] mobility-other, Muscle Weakness (generalized) Interventions Provided: Self Custodial Management (56766) Self Custodial Management (26126) Treatment Minutes: 24 $ Self Custodial Management (80965) Billed Units: 2 units Training AND Education Provided in: Activity Ad (more content not included)... Normal [facility] Basic metabolic 2000 panelon 03-18-2023 Anion gap [Moles/Vol] 7 mmol/L Low 9-18 [facility] Comment on above: Order Comment: Speci men Type: BLOOD SPECIMENOrdering Facility: [facility] Address: [address] [place] [address] Performed By: #### 2 4321-2 ####[facility] [id number] [place] [id number] [place] Calcium [Mass/Vol] 8.4 mg/dL Low 8.5-10.2 [facility]ital Comment on above: Order Comment: Speci men Type: BLOOD SPECIMENOrdering Facility: [facility] Address: [address] [place] [address] Performed By: #### 2 4321-2 ####[facility] [id number] [place] [address] [place] Chloride [Moles/Vol] 97 mmol/L Normal 97-105 [facility] Comment on above: Order Comment: Speci men Type: BLOOD SPECIMENOrdering Facility: [facility] Address: [address] [place] [address] Performed By: #### 2 4321-2 ####[facility] [id number] [place] [address] [place] CO2 [Moles/Vol] 25 mmol/L Normal 22-30 [facility] Comment on above: Order Comment: Speci men Type: BLOOD SPECIMENOrdering Facility: [facility] Address: [address] [place] [address] Performed By: #### 2 4321-2 ####[facility] LABORATORYCLIA [id number] [place] [address] [place] Creatinine [Mass/Vol] 0.98 mg/dL High 0.58-0.96 [facility] Comment on above: Order Comment: Elena adkins Type: BLOOD SPECIMENOrdering Facility: [facility] Address: [address] [place] [address] Performed By: #### 2 4321-2 ####[facility] LABORATORYCLIA [id number] [place] [address] [place] Creatinine and Glomerular filtration rate.predicted panel (S/P/Bld) 62 mL/min/1.73m??? Normal >=60 [facility] Comment on above: Order Comment: Elena adkins Type: BLOOD SPECIMENOrdering Facility: [facility] Address: [address] [place] [address] Result Comment: Sabrina mated Glomerular Filtration Rate [...] actual GFR. Performed By: #### 2 4321-2 ####[facility] LABORATORYCLIA [id number] [place] [address] [place] Glucose [Mass/Vol] 154 mg/dL High 74-99 [facility]spital Comment on above: Order Comment: Elena lucille Type: BLOOD SPECIMENOrdering Facility: [facility] Address: [address] [place] [address] Result Comment: The [place] Diabetes [employer] (ADA) provides guidance for cutoff [...] Standards of Medical Care in Diabetes 2016, [place] [employer]. Diabetes Care. 2016.39(Suppl 1). Performed By: #### 2 4321-2 ####[facility] LABORATORYCLIA [id number] [place] [address] [place] Potassium [Moles/Vol] 4.8 mmol/L Normal 3.7-5.1 [facility] Comment on above: Order Comment: Speci men Type: BLOOD SPECIMENOrdering Facility: [facility] Address: [address] [place] [address] Performed By: #### 2 4321-2 ####[facility] LABORATORYIA [id number] [place] [address] [place] Sodium [Moles/Vol] 129 mmol/L Low 136-144 [facility]spital Comment on above: Order Comment: Speci men Type: BLOOD SPECIMENOrdering Facility: [facility] Address: [address] [place] [address] Performed By: #### 2 4321-2 ####[facility] [id number] [place] [address] [place] Urea nitrogen [Mass/Vol] 16 mg/dL Normal 7-21 [facility] Comment on above: Order Comment: Speci men Type: BLOOD SPECIMENOrdering Facility: [facility] Address: [address] [place] [address] Performed By: #### 2 4321-2 ####[facility] [id number] [place] [address] [place] CBC panel Auto (Bld)on 03-18 Erythrocyte distribution width (RBC) [Ratio] 12.7 % Normal 11.5-15.0 [facility] Comment on above: Order Comment: Speci men Type: BLOOD SPECIMENOrdering Facility: [facility] Address: [address] [place] [address] Performed By: #### 5 8410-2 ####[facility] [id number] [place] [address] [place] Hematocrit (Bld) [Volume fraction] 29.1 % Low 36.0-46.0 [facility] Comment on above: Order Comment: Speci men Type: BLOOD SPECIMENOrdering Facility: [facility] Address: [address] [place] [address] Performed By: #### 5 8410-2 ####[facility] [id number] [place] [address] [place] Hemoglobin (Bld) [Mass/Vol] 9.8 g/dL Low 11.5-15.5 [facility] Comment on above: Order Comment: Speci men Type: BLOOD SPECIMENOrdering Facility: [facility] Address: [address] [place] [address] Performed By: #### 5 8410-2 ####[facility] [id number] [place] [address] [place] MCH (RBC) [Entitic mass] 31.1 pg Normal 26.0-34.0 [facility] Comment on above: Order Comment: Speci men Type: BLOOD SPECIMENOrdering Facility: [facility] Address: [address] [place] [address] Performed By: #### 5 8410-2 ####[facility] [id number] [place] [address] [place] MCHC (RBC) [Mass/Vol] 33.7 g/dL Normal 30.5-36.0 [facility] Comment on above: Order Comment: Speci men Type: BLOOD SPECIMENOrdering Facility: [facility] Address: [address] [place] [address] Performed By: #### 5 8410-2 ####[facility] [id number] [place] [address] [place] MCV (RBC) [Entitic vol] 92.4 fL Normal 80.0-100.0 [facility] Comment on above: Order Comment: Speci men Type: BLOOD SPECIMENOrdering Facility: [facility] Address: [address] [place] [address] Performed By: #### 5 8410-2 ####[facility] [id number] [facility] [place] [address] [place] Nucleated RBC (Bld) [#/Vol] 10*3/uL Normal <0.01 [facility] Comment on above: Order Comment: Speci men Type: BLOOD SPECIMENOrdering Facility: [facility] Address: [address] [place] [address] Performed By: #### 5 8410-2 ####[facility] [id number] [place] [address] [place] Platelet mean volume (Bld) [Entitic vol] 10.4 fL Normal 9.0-12.7 [facility] Comment on above: Order Comment: Speci men Type: BLOOD SPECIMENOrdering Facility: [facility] Address: [address] [place] [address] Performed By: #### 5 8410-2 ####[facility] [id number] [place] [address] [place] Platelets (Bld) [#/Vol] 199 10*3/uL Normal 150-400 [facility] Comment on above: Order Comment: Speci men Type: BLOOD SPECIMENOrdering Facility: [facility] Address: [address] [place] [address] Performed By: #### 5 8410-2 ####[facility] [id number] [place] [address] [place] RBC (Bld) [#/Vol] 3.15 10*6/uL Low 3.90-5.20 [facility] Comment on above: Order Comment: Speci men Type: BLOOD SPECIMENOrdering Facility: [facility] Address: [address] [place] [address] Performed By: #### 5 8410-2 ####[facility] [id number] [place] [address] [place] WBC (Bld) [#/Vol] 15.78 10*3/uL High 3.70-11.00 [facility] Comment on above: Order Comment: Speci men Type: BLOOD SPECIMENOrdering Facility: [facility] Address: [address], [place] [address] Performed By: #### 5 8410-2 ####[facility]ORYCLIA [id number] [facility] [place] [place] [address] [place] CONSULTon 03-18-2023 CONSULT HNO ID: [id number] Author: David Lr PA-C Service: Pain Management Author Type: Physician Assembler Fishing Floats Type: Consults Filed: 03/18/2023 5:59 PM Note Text: PAIN MANAGEMENT CONSULT -- [facility] PATIENT NAME: Gracie Jones DATE of [...] gram IV q8h. D/C oxycodone and start Donalds 5/325 mg 1 tab PO q4h PRN [...] ALLERGIES No Known Allergies CURRENT MEDICATIONS: Current Facility-Administere d Medications: keTORolac 15 mg injection (Toradol) scopolamine [...] bisacodyl EC 10 mg tab(s) (DULCOLAX) aluminum-magnesium hydroxide-simethicon e 200-200-20 mg/5 mL 30 mL ferrous sulfate [...] LABORATORY STUDIES: (more content not included)... Normal [facility] THERAPY NTon 03-18-2023 THERAPY NT HNO ID: [id number] Author: Mahi Rosales OTR/L Service: Occupational Therapy Author Type: Occupational Therapist Type: Therapy (PT/OT/Speech/Resp) Filed: 03/18/2023 3:48 PM Note Text: Occupational Therapy Evaluation SERVICE DATE: 03/18/2023 SERVICE TIME: 1450 to 1543 ROOM: [place] [address] Total Joint Replacement Discharge Readiness: Pending Occupational [...] Activity Tolerance, Functional Mobility Impairment, Balance Impaired Cognition/Communicat ion Deficits Responsiveness: Awake, Alert Follows Commands: 2-step [...] Literacy, Safety Awareness, Motivation, Open to Adaptive Equipment/Strategies , Strong Awareness of Deficit(s), Effective Communication Skills, [...] Muscle Weakness (generalized) Interventions Provided: Evaluation, Self Custodial Management (49442) $ Evaluation - Low (99959) Billed Units: 1 unit Self Custodial Management (9753 (more content not included)... Normal [facility] THERAPY NT HNO ID: [id number] Author: Sheng Redman, PT Service: Physical Therapy Author Type: Physical Therapist Type: Therapy (PT/OT/Speech/Resp) Filed: 03/18/2023 2:38 PM Note Text: Physical Therapy Treatment SERVICE DATE: 03/18/2023 SERVICE TIME: 1350 to 1430 ROOM: [place] [address] Total Joint Replacement Discharge Readiness: Cleared from [...] Of Stairs To Bed/Bath: 0 Tub/Shower Type: MICHOACANO Laundry: 1st floor ; spouse to complete [...] Assistance Device: Wheeled Walker Car Transfer Blank valenzuela indicate activity not attempted Gait Deviations Right Lower Extremity: Heel strike during initial stance decreased, Weight bearing decreased, Stance time decreased, Step length decreased General Deviations/Observati ons: Antalgic gait, Eva decreased -M: 7: Walk 25 feet or more Learning/Educational [...] with: Patient TREATMENT INTERVENTIONS: Therapy Diagnosis: Difficulty walking-musculoskele hcristofer Interventions Provided: Therapeutic Exercise (45483), Therapeutic Activity (65471), Gait Training (86382) Therapeutic Exercise (46625) Treatment Minutes: 8 $ Therapeutic Exercise (32518) Billed Units: 1 unit Therapeutic Activity (79709) Treatment Minutes: 12 $ Therapeutic Activity (94155) Billed Units: 1 unit Gait Training (28293) Treatment Minutes: 20 $ Gait Training (82651) Billed Units: 1 unit Training AND Education [...] flowsheet for complete details for this therapy evaluation/treatment . SIGNATURE: Sheng Redman PT PATIENT NAME: Gracie Jones DATE: March 18, 2023 TIME: 2:37 PM Normal [facility] THERAPY NT HNO ID: [id number] Author: Sheng Redman PT Service: Physical Therapy Author Type: Physical Therapist Type: Therapy (PT/OT/Speech/Resp) Filed: 03/18/2023 10:25 AM Note Text: Physical Therapy Evaluation SERVICE DATE: 03/18/2023 SERVICE TIME: 931 to 1010 ROOM: [place] [address] Pt. did not ambulate this session due [...] with: Patient TREATMENT INTERVENTIONS: Therapy Diagnosis: Difficulty walking-musculoskele christofer, Reduced mobility-other Interventions Provided: Evaluation, Therapeutic Exercise (72253), Therapeutic Activity (84834), Gait Training (21549) $ Evaluation-Low (75760) Billed Units: 1 unit Therapeutic Exercise (75544) Treatment Minutes: 12 Therapeutic Activity (75242) Treatment Minutes: 12 $ Therapeutic Activity (40181) Billed Units: 1 unit Training AND Education Provided in: Assistive Device Use, Bed Mobility, Gait Pattern, Reduction of Deviations, Expected Functional Level, Discharge Planning, Patient Exercise/Therapy Program Support Needs, Precautions/Restrict ions, Transfers, Role of Physical Therapy The Following Therapeutic Skills Were Used: Cues for Sequencing/Proper Technique for Activity, Cuing Tactile, Cuing Verbal, Cuing Visual, Assessment of Tolerance Including Vitals Response to Activity Timed Code Treatment (minutes): 24 Skilled Treatment Time (minutes): 39 Please see discipline specific clinical documentation flowsheet for complete details for this therapy evaluation/treatment . SIGNATURE: Sheng Redman, PT PATIENT NAME: Gracie Jones DATE: March 18, 2023 TIME: 10:23 AM [facility] ANES POSTPROC EVALon 023 ANES POSTPROC EVAL HNO ID: [id number] Author: Stephen Angela MD Service: Anesthesiology Author Type: Anesthesiologist Type: Anesthesia Postprocedure Evaluation Filed: 03/17/2023 7:21 PM Note Text: POST ANESTHESIA EVALUATION NOTE : 1950 Procedure Summary Date: 03/17/23 Room / Location: AV OR04 / AV OR Anesthesia Start: 1508 Anesthesia Stop: 1744 Procedure: ARTHROPLASTY HIP MOSES EXTENDED STAY (Right: [...] March 17, 2023 TIME: 7:21 PM CSN: [id number] [facility] ANES PRE-OPon 03-17-2023 ANES PRE-OP HNO ID: [id number] Author: Stephen Angela MD Service: Anesthesiology Author Type: Anesthesiologist Type: Anesthesia Preprocedure Evaluation Filed: 03/17/2023 2:27 PM Note Text: ANESTHESIOLOGY DAY OF SURGERY NOTE : 1950 Procedure Information Date/Time: 03/17/23 1415 Procedure: ARTHROPLASTY HIP MOSES EXTENDED STAY (Right: Hip) Location: [facility] / TIN OR Surgeons: Isaiah Arriaga MD Estimated body [...] and consent discussed: yes. Patient / Responsible Constitution Party agrees to proceed: yes Patient / Surrogate [...] 03/17/23 1300 SpO2 98 % 03/17/23 1300 Facility-Administere d Medications as of 03/17/2023 Medication Dose Route [...] March 17, 2023 TIME: 2:26 PM CSN: [id number] Normal [facility] CBC panel Auto (Bld)on 03-17 Erythrocyte distribution width (RBC) [Ratio] 13.0 % Normal 11.5-15.0 [facility] Comment on above: Order Comment: Speci men Type: BLOOD SPECIMENOrdering Facility: [facility] Address: [address] [place] [address] Performed By: #### 5 8410-2 ####[facility]ORATORYCLIA [id number] [place] [address] [place] Hematocrit (Bld) [Volume fraction] 37.0 % Normal 36.0-46.0 [facility] Comment on above: Order Comment: Aliciai lucille Type: BLOOD SPECIMENOrdering Facility: [facility] Address: [address] [place] [address] Performed By: #### 5 8410-2 ####[facility]ORATORYCLIA [id number] [place] [address] [place] Hemoglobin (Bld) [Mass/Vol] 12.2 g/dL Normal 11.5-15.5 [facility] Comment on above: Order Comment: Elena adkins Type: BLOOD SPECIMENOrdering Facility: [facility] Address: [address] [place] [address] Performed By: #### 5 8410-2 ####[facility] [id number] [place] [address] [place] MCH (RBC) [Entitic mass] 31.0 pg Normal 26.0-34.0 [facility] Comment on above: Order Comment: Speci men Type: BLOOD SPECIMENOrdering Facility: [facility] Address: [address] [place] [address] Performed By: #### 5 8410-2 ####[facility] [id number] [place] [id number] [place] MCHC (RBC) [Mass/Vol] 33.0 g/dL Normal 30.5-36.0 [facility] Comment on above: Order Comment: Speci men Type: BLOOD SPECIMENOrdering Facility: [facility] Address: [address] [place] [address] Performed By: #### 5 8410-2 ####[facility] [id number] [place] [id number] [facility] [place] MCV (RBC) [Entitic vol] 93.9 fL Normal 80.0-100.0 [facility] Comment on above: Order Comment: Speci men Type: BLOOD SPECIMENOrdering Facility: [facility] Address: [address] [place] [address] Performed By: #### 5 8410-2 ####[facility] [id number] [address] [place] Nucleated RBC (Bld) [#/Vol] 10*3/uL Normal <0.01 [facility] Comment on above: Order Comment: Speci men Type: BLOOD SPECIMENOrdering Facility: [facility] Address: [address] [place] [address] Performed By: #### 5 8410-2 ####[facility] [id number] [place] [address] [place] Platelet mean volume (Bld) [Entitic vol] 10.1 fL Normal 9.0-12.7 [facility] Comment on above: Order Comment: Speci men Type: BLOOD SPECIMENOrdering Facility: [facility] Address: [address] [place] [address] Performed By: #### 5 8410-2 ####[facility] [id number] [place] [address] [facility] Platelets (Bld) [#/Vol] 218 10*3/uL Normal 150-400 [facility] Comment on above: Order Comment: Speci men Type: BLOOD SPECIMENOrdering Facility: [facility] Address: [address] [place] [address] Performed By: #### 5 8410-2 ####[facility] [id number] [place] [address] [facility] RBC (Bld) [#/Vol] 3.94 10*6/uL Normal 3.90-5.20 [facility] Comment on above: Order Comment: Speci men Type: BLOOD SPECIMENOrdering Facility: [facility] Address: [address] [place] [address] Performed By: #### 5 8410-2 ####[facility] [id number] [place] [address] [facility] [place] WBC (Bld) [#/Vol] 6.52 10*3/uL Normal 3.70-11.00 [facility] Comment on above: Order Comment: Speci men Type: BLOOD SPECIMENOrdering Facility: [facility] Address: [address] [place] [address] Performed By: #### 5 8410-2 ####[facility]OR[facility]ORYIA [id number] [facility] [place] [address] [facility] EKGon 03-17-2023 Electrocardiogram Ventricular Rate : 56 BPM Atrial Rate : 56 BPM P-R Interval : 135 ms QRS Duration : 114 ms Q-T Interval : 486 ms QTC Calculation(Bazett) : 470 ms Calculated P [place] : 63 degrees Calculated R [place] : 49 degrees Calculated T [place] : 23 degrees Sinus rhythm Incomplete right bundle branch block Low voltage, precordial leads Abnormal ECG Confirmed by TERRANCE CHARLTON MD ([id number]) on 03/21/2023 1:13:54 PM NAME : GRACIE JONES PID : [id number] : 1950 Gender : Female Race : ORD : Procedure Date : Mar 17 2023 21:05:01 Edit Date : Mar 21 2023 13:13:57 Diagnosis: Sinus rhythm Incomplete right bundle branch block Low voltage, precordial leads Abnormal ECG Confirmed by TERRANCE CHARLTON MD ([id number]) on 03/21/2023 1:13:54 PM Test Reason : Location : 300 : EKG 502 Overread By : TERRANCE CHARLTON MD Edited By : TERRANCE CHARLTON MD Referred By : , Acquired by : [id number], [facility] MEDICAL EMERon 03-17-2023 [facility] HNO ID: [id number] Author: Xiomara Abraham APRN.POLYMERIZATION KETTLE OPERATOR Service: Critical Care Author Type: Nurse Practitioner [...] kidney disease (HCC) Hyperlipidemia, unspecified MEDICATIONS Current Facility-Administere d Medications Medication Dose Route Frequency ceFAZolin iv [...] (MOM) 30 mL ORAL DAILY PRN aluminum-magnesium hydroxide-simethicon e 200-200-20 mg/5 mL 30 mL 30 mL [...] assessment. I de (more content not included)... [facility] NURSING PROGon 03-17-2023 NURSING PROG HNO ID: [id number] Author: Xiomara Del Rio RN Service: Nursing Author Type: Registered Nurse Type: Nursing Progress Note Filed: 03/17/2023 11:14 PM Note Text: Event(s) / Intervention Note: PATIENT NAME: Gracie Jones Patient Location: [place] [address] [address] Room: [place] [address] The patient was observed having the following problems: change in mental status while RN performing assessment. Pt drowsy but arosible and answering questions. While talking, pt became unresponsive, pallor, hypotensive, not responsive to sternal rub. The time of the event occurred at: 2053. The following intervention(s) were initiated: Rapid response initiated. [facility] CAMP BOSS at bedside. HOB supine, medications administered per orders. (See emar and flowsheets). After the initiated interventions, the following observation(s) were made: patient appears improved. [facility] NURSING PROG HNO ID: [id number] Author: Svitlana Villatoro RN Service: Nursing Author Type: Registered Nurse Type: Nursing Progress Note Filed: 03/18/2023 12:47 AM Note Text: Transfer Note: PATIENT NAME: Gracie Jones Patient Location: / Room: [facility] Patient transferred into room/unit 502 in stable condition. Actions taken: Patient belongings with patient. Normal [facility] OPERATIVE NOon 03-17-2023 OPERATIVE NO HNO ID: [id number] Author: Isaiah Arriaga MD Service: Orthopaedic Surgery Author Type: Physician Type: Operative Report Filed: 03/17/2023 5:27 PM Note Text: [facility] OPERATIVE REPORT PATIENT NAME: Gracie Joens AGE: [age] year old LOG ID: [id number] Surgery Date: 03/17/2023 SURGEON: Isaiah Arriaga MD DIRECTOR OF REVENUE CYCLE MANAGEMENT: Olive Amaya PA-C, SA, her assistance consisted [...] by IMPACT/ Internal Medicine for pre-operative optimization. Zakiya-operative blood management and the potential for blood transfusion were discussed with risks and options clearly outlined. The patient has consented to the use of banked allogenic blood if medically necessary. IMPLANTS: [facility] Total Hip System SIZE TYPE Acetabulum [...] Operative Johnathan (more content not included)... Normal [facility] XR PELVIS 1V APon 03-17-2023 XR [...] changes status post right total hip arthroplasty. 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 Commander: ANDREW Transcribe Date/Time: Mar 17 2023 6:11P Dictated by : EVELYN HENDRICKS MD This examination was interpreted and the report reviewed and electronically signed by: EVELYN HENDRICKS MD on Mar 17 2023 6:13PM EST [id number] Normal [facility] Laboratory - Microbiology an d Antimicrobial susceptibilityon 12-23-2022 S. aureus and MRSA panel ALRETTE+probe (Nose) Negative Negative [facility] XR HIP GENERAL 3V PELV/AP/LA T RIGHTon 12-22-2022 [facility] XR Pelvis and Hip - right [...] spine, incompletely characterized. DIVISION OF RADIOLOGY Provider, [facility] Imaging [place] - 12/22/2022 * * *Final Report* * [...] osteoarthritis, slightly progressed since the prior exam. 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 Commander: PSCB Transcribe Date/Time: Dec 22 2022 1:20P Dictated by : SHE VERDUZCO MD This examination was interpreted and the report reviewed and electronically signed by: SHE VERDUZCO MD on Dec 22 2022 1:21PM [facility] Radiology Study observation (narrative) Sandra barnhart [facility] XR Pelvis and Hip - right AP and Lateral frogOrdered By: [facility] Provider on 12-22-2022 [facility] PROF CHEM 8 (BAS METB)on Anion gap [Moles/Vol] 10.5 mmol/L Normal [facility] Comment on above: Performed By: #### B MP #### [facility] [address] [place] [address] [address] Allegra Heath Calcium [Mass/Vol] 9.2 mg/dL Normal 8.5-10.1 [facility] Comment on above: Performed By: #### B MP #### [facility] [address] [place] [address] [address] Allegra Heath Chloride [Moles/Vol] 100 mmol/L Normal 98-107 [facility] Comment on above: Performed By: #### B MP #### [facility] [address] [place] [address] [address] Allegra Heath CO2 [Moles/Vol] 29.0 mmol/L Normal 21.0-32.0 [facility] Comment on above: Performed By: #### B MP #### [facility] [address] [place] [address] [address] Allegra Heath Creatinine [Mass/Vol] 0.88 mg/dL Normal 0.55-1.02 [facility] Comment on above: Performed By: #### B MP #### [facility] [address] [place] [address] [address] Allegra Heath EGFR-AF [place] >60 Normal >=60 [facility] Comment on above: Performed By: #### B MP #### [facility] [address] [place] [address] [address] Allegra Heath EGFR-NON AF [place] >60 Normal >=60 [facility] Comment on above: Performed By: #### B MP #### [facility] [address] [place] [address] [address] Allegra Heath Glucose [Mass/Vol] 99 mg/dL Normal 74-106 [facility] Comment on above: Performed By: #### B MP #### [facility] [address] [place] [address] [address] Allegra Heath Potassium [Moles/Vol] 4.5 mmol/L Normal 3.5-5.1 [facility] Comment on above: Performed By: #### B MP #### [facility] [address] [place], [place] [address] Dr. Allegra Heath Sodium [Moles/Vol] 135 mmol/L Critically low 136-145 Th e [facility] Comment on above: Performed By: #### B MP #### [facility] [address] [place], [place] [address] Dr. Allegra Heath Urea nitrogen [Mass/Vol] 16.0 mg/dL Normal 7.0-18.0 [facility] Comment on above: Performed By: #### B MP #### [facility] [address] [place], [place] [address] Dr. Allegra Heath Urea nitrogen/Creatinine [Mass ratio] 18.2 mg/mg Normal [facility] Comment on above: Performed By: #### B MP #### [facility] [address] [place], [place] [address] Dr. Allegra Heath XR HIP GENERAL 3V PELV/AP/LA T RIGHTon 01-06-2022 [facility] XR Pelvis and Hip - right AP and Lateral frogon 01-06-2022 IMPRESSION: MODERATE DEGENERATIVE CHANGES RIGHT HIP, NOT SIGNIFICANTLY CHANGED 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 Commander: [facility] Transcribe Date/Time: Jan 06 2022 4:26P Dictated by : PIPO MELENDEZ MD This examination was interpreted and the report reviewed and electronically signed by: PIPO MELENDEZ MD on Jan 06 2022 4:26PM [facility] DIVISION OF RADIOLOGY * * *Final [...] in the pelvis. No other significant abnormality. ----- DIVISION OF RADIOLOGY Provider, [facility] [place] - 01/06/2022 * * *Final Report* * [...] in the pelvis. No other significant abnormality. ----- IMPRESSION IMPRESSION: MODERATE DEGENERATIVE CHANGES RIGHT HIP, NOT SIGNIFICANTLY CHANGED 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 Commander: [facility] Transcribe Date/Time: Jan 06 2022 4:26P Dictated by : PIPO MELENDEZ MD This examination was interpreted and the report reviewed and electronically signed by: PIPO MELENDEZ MD on Jan 06 2022 4:26PM [facility] Radiology Study observation (narrative) Sandra barnhart [facility] XR Pelvis and Hip - right AP and Lateral frogOrdered By: [facility] Provider on 01-06-2022 [facility] LYME DISEASE AB EIA W REFLEX on 12-05-2021 Lyme Total Antibody,EIA Negative Normal Negative T chandan [facility] Comment on above: Result Comment: Lyme Antibody Negative No laboratory evidence of infection with B. burgdorferi (Lyme disease). Negative results may occur in patients recently infected (greater than or equal to 14 days) with B. burgdorferi. If recent infection is suspected, repeat testing on a new sample collected in 7 to 14 days is recommended. Performed By: #### L YMA #### [facility] [address] [place] [address] Dr. Allegra Heath PROF 14(COMP METB)on 022 Albumin [Mass/Vol] 3.7 g/dL Normal 3.4-5.0 [facility] Comment on above: Performed By: #### C MP #### [facility] [address] [place] [address] Dr. Allegra Heath Albumin/Globulin [Mass ratio] 1.2 {ratio} Normal [facility] Comment on above: Performed By: #### C MP #### [facility] [address] [place] [address] Dr. Allegra Heath ALP [Catalytic activity/Vol] 75 U/L Normal 46-116 [facility] Comment on above: Performed By: #### C MP #### [facility] [address] [place] [address] Dr. Allegra Heath ALT [Catalytic activity/Vol] 42 U/L Normal 14-59 [facility] Comment on above: Performed By: #### C MP #### [facility] [address] [place] [address] Dr. Allegra Heath Anion gap [Moles/Vol] 11.5 mmol/L Normal [facility] Comment on above: Performed By: #### C MP #### [facility] [address] [place] [address] Dr. Allegra Heath AST [Catalytic activity/Vol] 31 U/L Normal 15-37 [facility] Comment on above: Performed By: #### C MP #### [facility] [address] [place] [address] Dr. Allegra Heath Bilirubin [Mass/Vol] 0.8 mg/dL Normal 0.2-1.0 [facility] Comment on above: Performed By: #### C MP #### [facility] [address] [place] [address] Dr. Allegra Heath Calcium [Mass/Vol] 9.0 mg/dL Normal 8.5-10.1 [facility] Comment on above: Performed By: #### C MP #### [facility] [address] [address] [address] Allegra Heath Chloride [Moles/Vol] 103 mmol/L Normal 98-107 [facility] Comment on above: Performed By: #### C MP #### [facility] [address] [place] [address] Dr. Allegra Heath CO2 [Moles/Vol] 27.6 mmol/L Normal 21.0-32.0 [facility] Comment on above: Performed By: #### C MP #### [facility] [address] [place] [address] Dr. Allegra Heath Creatinine [Mass/Vol] 0.97 mg/dL Normal 0.55-1.02 [facility] Comment on above: Performed By: #### C MP #### [facility] [address] [place] [address] Dr. Allegra Heath EGFR-AF GREENLANDIC >60 Normal >=60 [facility] Comment on above: Performed By: #### C MP #### [facility] [address] [address] [address] Allegra Heath EGFR-NON AF GREENLANDIC 57 mL/min/1.73m2 Critically low >=60 [facility] Comment on above: Performed By: #### C MP #### [facility] [address] [place] [address] Dr. Allegra Heath Globulin (S) [Mass/Vol] 3.1 g/dL Normal T [facility] Comment on above: Performed By: #### C MP #### [facility] [address] [address] [address] Allegra Heath Glucose [Mass/Vol] 96 mg/dL Normal 74-106 [facility] Comment on above: Performed By: #### C MP #### [facility] [address] [place] [address] Dr. Allegra Heath Potassium [Moles/Vol] 4.1 mmol/L Normal 3.5-5.1 [facility] Comment on above: Performed By: #### C MP #### [facility] [address] [place] [address] Dr. Allegra Heath Protein [Mass/Vol] 6.8 g/dL Normal 6.4-8.2 [facility] Comment on above: Performed By: #### C MP #### [facility] [address] [address] [address] Allegra Heath Sodium [Moles/Vol] 138 mmol/L Normal 136-145 [facility] Comment on above: Performed By: #### C MP #### [facility] [address] [address] [address] Allegra Heath Urea nitrogen [Mass/Vol] 14.0 mg/dL Normal 7.0-18.0 [facility] Comment on above: Performed By: #### C MP #### [facility] [address] [address] [address] Allegra Heath Urea nitrogen/Creatinine [Mass ratio] 14.4 mg/mg Normal [facility] Comment on above: Performed By: #### C MP #### [facility] [address] [place] [address] Dr. Allegra Heath XR Shoulder - right 3 Viewso n 11-05-2021 Radiology Study observation (narrative) [facility] IMPRESSION: Findings consistent with chronic rotator cuff tear. Mild degenerative change of the acromioclavicular joint. 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 Commander: ANDREW Transcribe Date/Time: Nov 05 2021 1:29P Dictated by : SHE VERDUZCO MD This examination was interpreted and the report reviewed and electronically signed by: SHE VERDUZCO MD on Nov 05 2021 1:30PM EST [facility]_DO_NOT_USE _DIVISION OF RADIOLOGY * * *Final Report* * [...] acromioclavicular joint and small subacromial bone spur. ZZZ_DO_NOT_USE _DIVISION OF RADIOLOGY Provider, [facility] [place] - 11/05/2021 * * *Final Report* * * DATE OF EXAM: Nov 05 2021 1:16PM [id number] 5253 - XR SHLDR >/=3V AP/LUIS ENRIQUE [...] Mild degenerative change of the acromioclavicular joint. 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 Commander: ANDREW Transcribe Date/Time: Nov 05 2021 1:29P Dictated by : SHE VERDUZCO MD This examination was interpreted and the report reviewed and electronically signed by: SHE VERDUZCO MD on Nov 05 2021 1:30PM EST [facility] XR Shoulder - right 3 ViewsO rdered By: [facility] Provider on 11-05-2021 [facility] XR Pelvis and Hip - right AP and Lateral frogon 10-25-2021 IMPRESSION: Right hip osteoarthritis. 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 Commander: ANDREW Transcribe Date/Time: Oct 25 2021 2:22P Dictated by : FLAVIA ODELL MD This examination was interpreted and the report reviewed and electronically signed by: FLAVIA ODELL MD on Oct 25 2021 2:23PM EST ZZZ_DO_NOT_USE _DIVISION OF RADIOLOGY * * *Final Report* * [...] enthesopathy. Tubal ligation clips overlie the pelvis. ZZZ_DO_NOT_USE _DIVISION OF RADIOLOGY Provider, [facility] [place] - 10/25/2021 * * *Final Report* * [...] the pelvis. IMPRESSION IMPRESSION: Right hip osteoarthritis. 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 Commander: PSCB Transcribe Date/Time: Oct 25 2021 2:22P Dictated by : FLAVIA ODELL MD This examination was interpreted and the report reviewed and electronically signed by: FLAVIA ODELL MD on Oct 25 2021 2:23PM EST [facility] Radiology Study observation (narrative) [facility] XR Pelvis and Hip - right AP and Lateral frogOrdered By: [facility] Provider on 10-25-2021 [facility] LIPID PROFILEon 10-04-2021 CHOL-HDL RATIO NORM SEE BELOW Normal [facility] Comment on above: Result Comment: 3.3 - 4.4 LOW RISK 4.4 - 7.1 AVERAGE RISK 7.1 - 11.0 MODERATE RISK >11.0 HIGH RISK Performed By: #### C MP, LIPID #### [facility] [address] [address] [address] Allegra Heath Cholesterol [Mass/Vol] 170 mg/dL Normal <=200 Th [facility] Comment on above: Performed By: #### C MP, LIPID #### [facility] [address] [address] [address] Allegra Heath Cholesterol in HDL [Mass/Vol] 64 mg/dL Critically high 40-60 [facility] Comment on above: Performed By: #### C MP, LIPID #### [facility] [address] [address] [address] Allegra Heath Cholesterol in LDL [Mass/Vol] 95.2 mg/dL Normal [facility] Comment on above: Performed By: #### C MP, LIPID #### [facility] [address] [address] [address] Allegra Heath Cholesterol.total/Mariana sterol in HDL [Mass ratio] 2.7 {ratio} Normal [facility] Comment on above: Performed By: #### C MP, LIPID #### [facility] [address] [address] [address] Allegra Heath HDL NORMAL > or = 60 mg/dl - LOW CARDIOVASCULAR RISK <40 mg/dl - HIGH CARDIOVASCULAR RISK Normal [facility] Comment on above: Performed By: #### C MP, LIPID #### [facility] [address] [address] [address] Allegra Heath LDL CALC NORMAL SEE BELOW Normal [facility] Comment on above: Result Comment: <100 mg/dl OPTIMAL 100 - 129 mg/dl NEAR OR ABOVE OPTIMAL 130 - 159 mg/dl BORDERLINE HIGH 160 - 189 mg/dl HIGH >190 mg/dl VERY HIGH Performed By: #### C MP, LIPID #### [facility] [address] [place] [address] Dr. Allegra Heath Triglyceride [Mass/Vol] 54 mg/dL Normal <=150 T [facility] Comment on above: Performed By: #### C MP, LIPID #### [facility] [address] [place] [address] Dr. lAlegra Heath VLDL CALC 10.8 mg/dL Normal [facility] Comment on above: Performed By: #### C MP, LIPID #### [facility] [address] [address] [address] Allegra Heath PROF 14(COMP METB)on 022 Albumin [Mass/Vol] 3.7 g/dL Normal 3.4-5.0 [facility] Comment on above: Performed By: #### C MP, LIPID #### [facility] [address] [place] [address] Dr. Allegra Heath Albumin/Globulin [Mass ratio] 1.2 {ratio} Normal [facility] Comment on above: Performed By: #### C MP, LIPID #### [facility] [address] [place] [address] Dr. Allegra Heath ALP [Catalytic activity/Vol] 80 U/L Normal 46-116 [facility] Comment on above: Performed By: #### C MP, LIPID #### [facility] [address] [place] [address] Dr. Allegra Heath ALT [Catalytic activity/Vol] 58 U/L Normal 14-59 [facility] Comment on above: Performed By: #### C MP, LIPID #### [facility] [address] [place] [address] Dr. Allegra Heath Anion gap [Moles/Vol] 11.8 mmol/L Normal [facility] Comment on above: Performed By: #### C MP, LIPID #### [facility] [address] [place] [address] Dr. Allegra Heath AST [Catalytic activity/Vol] 53 U/L Critically high 15-37 [facility] Comment on above: Performed By: #### C MP, LIPID #### [facility] [address] [place] [address] Dr. Allegra Heath Bilirubin [Mass/Vol] 0.8 mg/dL Normal 0.2-1.0 [facility] Comment on above: Performed By: #### C MP, LIPID #### [facility] [address] [place] [address] Dr. Allegra Heath Calcium [Mass/Vol] 9.1 mg/dL Normal 8.5-10.1 [facility] Comment on above: Performed By: #### C MP, LIPID #### [facility] [address] [place] [address] Dr. Allegra Heath Chloride [Moles/Vol] 102 mmol/L Normal 98-107 [facility] Comment on above: Performed By: #### C MP, LIPID #### [facility] [address] [place] [address] Dr. Allegra Heath CO2 [Moles/Vol] 27.1 mmol/L Normal 21.0-32.0 [facility] Comment on above: Performed By: #### C MP, LIPID #### [facility] [address] [place] [address] Dr. Allegra Heath Creatinine [Mass/Vol] 1.02 mg/dL Normal 0.55-1.02 [facility] Comment on above: Performed By: #### C MP, LIPID #### [facility] [address] [place] [address] Dr. Allegra Heath EGFR-AF GREEN[place]IC >60 Normal >=60 [facility] Comment on above: Performed By: #### C MP, LIPID #### [facility] [address] [place] [address] Dr. Allegra Heath EGFR-NON AF [place] 54 mL/min/1.73m2 Critically low >=60 [facility] Comment on above: Performed By: #### C MP, LIPID #### [facility] [address] [place] [address] Dr. Allegra Heath Globulin (S) [Mass/Vol] 3.1 g/dL Normal T [facility] Comment on above: Performed By: #### C MP, LIPID #### [facility] [address] [address] [address] Allegra Heath Glucose [Mass/Vol] 92 mg/dL Normal 74-106 [facility] Comment on above: Performed By: #### C MP, LIPID #### [facility] [address] [place] [address] Dr. Allegra Heath Potassium [Moles/Vol] 3.9 mmol/L Normal 3.5-5.1 [facility] Comment on above: Performed By: #### C MP, LIPID #### [facility] [address] [place] [address] Dr. Allegra Heath Protein [Mass/Vol] 6.8 g/dL Normal 6.4-8.2 [facility] Comment on above: Performed By: #### C MP, LIPID #### [facility] [address] [place] [address] Dr. Allegra Heath Sodium [Moles/Vol] 137 mmol/L Normal 136-145 [facility] Comment on above: Performed By: #### C MP, LIPID #### [facility] [address] [place] [address] Dr. Allegra Heath Urea nitrogen [Mass/Vol] 16.0 mg/dL Normal 7.0-18.0 [facility] Comment on above: Performed By: #### C MP, LIPID #### [facility] [address] [place] [address] Dr. Allegra Heath Urea nitrogen/Creatinine [Mass ratio] 15.7 mg/mg Normal [facility] Comment on above: Performed By: #### C MP, LIPID #### [facility] [address] [place] [address] Dr. Allegra Heath No Panel Information [facility] Vital Signs Date Time Vital Sign Value Performing Clinician Facility 02-07-2025 09:37-0400 Body height 157.48 cm [facility] BLEACH ANALYST Work Phone: [facility] 02-07-2025 09:37-0400 Body mass index (BMI) [Ratio] 28 kg/m2 [facility] BLEACH ANALYST Work Phone: [facility] 02-07-2025 09:37-0400 Body temperature 97.2 [degF] Lyndsay Panchitoerwood BLEACH ANALYST Work Phone: [facility] 02-07-2025 09:37-0400 Body weight 69.39 kg Lyndsay Panchitoerwood BLEACH ANALYST Work Phone: [facility] 02-07-2025 09:37-0400 Diastolic blood pressure 72 mm[Hg] Lyndsay Panchitoerwood BLEACH ANALYST Work Phone: [facility] 02-07-2025 09:37-0400 Heart rate 93 /min Lyndsay Panchitoerwood BLEACH ANALYST Work Phone: [facility] 02-07-2025 09:37-0400 Respiratory rate 20 /min Lyndsay Panchitoerwood BLEACH ANALYST Work Phone: [facility] 02-07-2025 09:37-0400 SaO2% (BldA) [Mass fraction] 97 % Lyndsay Flanaganerwood BLEACH ANALYST Work Phone: [facility] 02-07-2025 09:37-0400 Systolic blood pressure 122 mm[Hg] Lyndsay Panchitoerwood BLEACH ANALYST Work Phone: [facility] 01-23-2025 08:57-0400 Body height 157.5 cm Susie Maddox MD Work Phone: [facility] 01-23-2025 08:57-0400 Body mass index (BMI) [Ratio] 28.72 kg/m2 Susie Maddox MD Work Phone: [facility] 01-23-2025 08:57-0400 Body weight 71.22 kg Susie Maddox MD Work Phone: [facility] 01-23-2025 08:57-0400 Heart rate 62 /min Susie Maddox MD Work Phone: [facility] 01-23-2025 08:57-0400 SaO2% (BldA) [Mass fraction] 99 % Susie Maddox MD Work Phone: [facility] 11-07-2024 13:01-0400 Body height 157.48 cm Lyndsay Easterwood BLEACH ANALYST Work Phone: [facility] 11-07-2024 13:01-0400 Body mass index (BMI) [Ratio] 28.5 kg/m2 Lyndsay Easterwood BLEACH ANALYST Work Phone: [facility] 11-07-2024 13:01-0400 Body temperature 97.4 [degF] Lyndsay Easterwood BLEACH ANALYST Work Phone: [facility] 11-07-2024 13:01-0400 Body weight 70.76 kg Lyndsay Easterwood BLEACH ANALYST Work Phone: [facility] 11-07-2024 13:01-0400 Diastolic blood pressure 70 mm[Hg] Lyndsay Easterwood BLEACH ANALYST Work Phone: [facility] 11-07-2024 13:01-0400 Heart rate 68 /min Lyndsay Panchitoerwood BLEACH ANALYST Work Phone: [facility] 11-07-2024 13:01-0400 Respiratory rate 20 /min Lyndsay Easterwood BLEACH ANALYST Work Phone: [facility] 11-07-2024 13:01-0400 SaO2% (BldA) [Mass fraction] 96 % Lyndsay Panchitoerwood BLEACH ANALYST Work Phone: [facility] 11-07-2024 13:01-0400 Systolic blood pressure 118 mm[Hg] Lyndsay Easterwood BLEACH ANALYST Work Phone: [facility] 2024 10:32-0500 Body height 157.48 cm [facility] 2024 10:32-0500 Body mass index (BMI) [Ratio] 28.9 kg/m2 [facility] 2024 10:32-0500 Body temperature 97.5 [degF] [facility] 2024 10:32-0500 Body weight 71.66 kg [facility] 2024 10:32-0500 Diastolic blood pressure 78 mm[Hg] [facility] 2024 10:32-0500 Heart rate 67 /min [facility] 2024 10:32-0500 Respiratory rate 20 /min [facility] 2024 10:32-0500 SaO2% (BldA) [Mass fraction] 98 % [facility] 2024 10:32-0500 Systolic blood pressure 120 mm[Hg] [facility] 03-28-2024 08:47-0500 Body height 157.5 cm OliveScrippedch PA-C Work Phone: [facility] 03-28-2024 08:47-0500 Body mass index (BMI) [Ratio] 29.08 kg/m2 DocVuech PA-C Work Phone: [facility] 03-28-2024 08:47-0500 Body weight 72.12 kg OliveBudge PA-C Work Phone: [facility] 02-16-2024 10:15-0400 Body height 157.5 cm Kota Bonilla MD Work Phone: [facility] 02-16-2024 10:15-0400 Body mass index (BMI) [Ratio] 28.35 kg/m2 Kota Bonilla MD Work Phone: [facility] 02-16-2024 10:15-0400 Body weight 70.31 kg Kota Bonilla MD Work Phone: [facility] 02-16-2024 10:15-0400 Diastolic blood pressure 87 mm[Hg] Kota Bonilla MD Work Phone: [facility] 02-16-2024 10:15-0400 Heart rate 71 /min Kota oBnilla MD Work Phone: [facility] 02-16-2024 10:15-0400 Systolic blood pressure 137 mm[Hg] Kota Bonilla MD Work Phone: [facility] 02-08-2024 15:00-0400 Body height 157.48 cm [facility] 02-08-2024 15:00-0400 Body mass index (BMI) [Ratio] 28.1 kg/m2 [facility] 02-08-2024 15:00-0400 Body temperature 97 [degF] [facility] 02-08-2024 15:00-0400 Body weight 69.85 kg [facility] 02-08-2024 15:00-0400 Diastolic blood pressure 80 mm[Hg] [facility] 02-08-2024 15:00-0400 Heart rate 86 /min [facility] 02-08-2024 15:00-0400 Respiratory rate 20 /min [facility] 02-08-2024 15:00-0400 SaO2% (BldA) [Mass fraction] 99 % [facility] 02-08-2024 15:00-0400 Systolic blood pressure 118 mm[Hg] [facility] 10-29-2023 10:07-0400 Body height 157.48 cm BLEACH ANALYST Lyndsay EasterPowerCard Work Phone: [facility] 10-29-2023 10:07-0400 Body mass index (BMI) [Ratio] 28.1 kg/m2 BLEACH ANALYST Lyndsay EasterPowerCard Work Phone: [facility] 10-29-2023 10:07-0400 Body temperature 97.3 [degF] BLEACH ANALYST Lyndsay EasterPowerCard Work Phone: [facility] 10-29-2023 10:07-0400 Body weight 69.85 kg BLEACH ANALYST Lyndsay EasterPowerCard Work Phone: [facility] 10-29-2023 10:07-0400 Diastolic blood pressure 80 mm[Hg] BLEACH ANALYST Lyndsay Easterwood Work Phone: [facility] 10-29-2023 10:07-0400 Heart rate 71 /min BLEACH ANALYST Lyndsay Easterwood Work Phone: [facility] 10-29-2023 10:07-0400 SaO2% (BldA) [Mass fraction] 98 % BLEACH ANALYST Lyndsay Flanaganertricia Work Phone: [facility] 10-29-2023 10:07-0400 Systolic blood pressure 136 mm[Hg] BLEACH ANALYST Lyndsay Panchitoertricia Work Phone: [facility] 04-27-2023 09:30-0500 Body height 157.48 cm Lyndsay Flanaganerwood Other [employer] Other 04-27-2023 09:30-0500 Body mass index (BMI) [Ratio] 26.34 kg/m2 Lyndsay Flanaganerwood Other [employer] Other 04-27-2023 09:30-0500 Body temperature 97 [degF] Lyndsay Flanaganertricia Other [employer] Other 04-27-2023 09:30-0500 Body weight 65.32 kg Lyndsay Dunbar Other [employer] Other 04-27-2023 09:30-0500 Diastolic blood pressure 76 mm[Hg] Lyndsay Panchitoerwood Other [employer] Other 04-27-2023 09:30-0500 Respiratory rate 20 /min Lyndsay Panchitoerwood Other [employer] Other 04-27-2023 09:30-0500 SaO2% (BldA) [Mass fraction] 99 % Lyndsay Easterwood Other [employer] Other 04-27-2023 09:30-0500 Systolic blood pressure 128 mm[Hg] Lyndsay Easterwood Other [employer] Other 04-15-2023 09:30-0500 Body height 157.48 cm Lyndsay Easterwood Other [employer] Other 04-15-2023 09:30-0500 Body mass index (BMI) [Ratio] 26.34 kg/m2 Lyndsay Easterwood Other [employer] Other 04-15-2023 09:30-0500 Body temperature 97.8 [degF] Lyndsay Easterwood Other [employer] Other 04-15-2023 09:30-0500 Body weight 65.32 kg Lyndsay Easterwood Other [employer] Other 04-15-2023 09:30-0500 Diastolic blood pressure 86 mm[Hg] Lyndsay Easterwood Other [employer] Other 04-15-2023 09:30-0500 Respiratory rate 20 /min Lyndsay Easterwood Other [employer] Other 04-15-2023 09:30-0500 SaO2% (BldA) [Mass fraction] 99 % Lyndsay Easterwood Other [employer] Other 04-15-2023 09:30-0500 Systolic blood pressure 128 mm[Hg] Lyndsay Easterwood Other [employer] Other 10-23-2022 10:00-0400 Body height 157.48 cm Lyndsay Easterwood Other [employer] Other 10-23-2022 10:00-0400 Body mass index (BMI) [Ratio] 27.43 kg/m2 Lyndsay Easterwood Other [employer] Other 10-23-2022 10:00-0400 Body temperature 97 [degF] Lyndsay Easterwood Other [employer] Other 10-23-2022 10:00-0400 Body weight 68.04 kg Lyndsay Panchitoerwood Other [employer] Other 10-23-2022 10:00-0400 Diastolic blood pressure 82 mm[Hg] Lyndsay Panchitoerwood Other [employer] Other 10-23-2022 10:00-0400 Respiratory rate 20 /min Lyndsay Panchitoerwood Other [employer] Other 10-23-2022 10:00-0400 SaO2% (BldA) [Mass fraction] 96 % Lyndsay Panchitoertricia Other [employer] Other 10-23-2022 10:00-0400 Systolic blood pressure 120 mm[Hg] Lyndsay Easterwood Other [employer] Other 08-05-2022 10:10-0400 Body height 157.5 cm Pacc 2 Work Phone: [facility] 08-05-2022 10:10-0400 Body temperature 97 [degF] Pacc 2 Work Phone: [facility] 08-05-2022 10:10-0400 Body weight 66.22 kg Pacc 2 Work Phone: [facility] 08-05-2022 10:10-0400 Diastolic blood pressure 90 mm[Hg] Pacc 2 Work Phone: [facility] 08-05-2022 10:10-0400 Heart rate 68 /min Pacc 2 Work Phone: [facility] 08-05-2022 10:10-0400 Respiratory rate 16 /min Pacc 2 Work Phone: [facility] 08-05-2022 10:10-0400 SaO2% (BldA) [Mass fraction] 100 % Pacc 2 Work Phone: [facility] 08-05-2022 10:10-0400 Systolic blood pressure 146 mm[Hg] Pacc 2 Work Phone: [facility] 06-30-2022 13:13-0500 Body weight 66 kg Zahida Medrano MD Work Phone: [facility] 06-30-2022 13:13-0500 Diastolic blood pressure 86 mm[Hg] Zahida Medrano MD Work Phone: [facility] 06-30-2022 13:13-0500 Heart rate 58 /min Zahida Medrano MD Work Phone: [facility] 06-30-2022 13:13-0500 Systolic blood pressure 152 mm[Hg] Zahida Medrano MD Work Phone: [facility] 06-17-2022 16:20-0500 Body height 157.48 cm Nadir Tolbert Other [employer] Other 06-17-2022 16:20-0500 Body mass index (BMI) [Ratio] 26.52 kg/m2 Nadir Tolbert Other [employer] Other 06-17-2022 16:20-0500 Body temperature 97.7 [degF] Nadir Tolbert Other [employer] Other 06-17-2022 16:20-0500 Body weight 65.77 kg Nadir Tolbert Other [employer] Other 06-17-2022 16:20-0500 Diastolic blood pressure 90 mm[Hg] Nadir Tolbert Other [employer] Other 06-17-2022 16:20-0500 Respiratory rate 20 /min Nadir Tomasz Other [employer] Other 06-17-2022 16:20-0500 SaO2% (BldA) [Mass fraction] 99 % Nadir Tomasz Other [employer] Other 06-17-2022 16:20-0500 Systolic blood pressure 160 mm[Hg] Nadir Tomasz Other [employer] Other 03-07-2022 13:17-0400 Body height 157.5 cm Frida Banjac BLEACH ANALYST.POLYMERIZATION KETTLE OPERATOR Work Phone: [facility] 03-07-2022 13:17-0400 Body weight 62.55 kg Frida Banjac BLEACH ANALYST.POLYMERIZATION KETTLE OPERATOR Work Phone: [facility] 03-07-2022 13:17-0400 Diastolic blood pressure 88 mm[Hg] Frida Banjac BLEACH ANALYST.POLYMERIZATION KETTLE OPERATOR Work Phone: [facility] 03-07-2022 13:17-0400 Heart rate 64 /min Frida Banjac BLEACH ANALYST.POLYMERIZATION KETTLE OPERATOR Work Phone: [facility] 03-07-2022 13:17-0400 Respiratory rate 16 /min Frida Banjac BLEACH ANALYST.POLYMERIZATION KETTLE OPERATOR Work Phone: [facility] 03-07-2022 13:17-0400 SaO2% (BldA) [Mass fraction] 100 % Frida Banjac BLEACH ANALYST.POLYMERIZATION KETTLE OPERATOR Work Phone: [facility] 03-07-2022 13:17-0400 Systolic blood pressure 140 mm[Hg] Frida Banjac BLEACH ANALYST.POLYMERIZATION KETTLE OPERATOR Work Phone: [facility] 12-25-2021 14:59-[address] [facility] 12-25-2021 14:59-0400 Body temperature 98.96 [degF] [facility] 12-25-2021 14:59-0400 Diastolic blood pressure 80 mm[Hg] Dilley Magnus [facility] 12-25-2021 14:59-0400 Heart rate 66 /min [facility] 12-25-2021 14:59-0400 SaO2% (BldA) [Mass fraction] 98 % [facility] 12-25-2021 14:59-0400 Systolic blood pressure 120 mm[Hg] [facility] 12-03-2021 15:00-0400 Body height 157.48 cm Lyndsay Green[employer] Other [employer] Other 12-03-2021 15:00-0400 Body mass index (BMI) [Ratio] 26.52 kg/m2 [employer] Other [employer] Other 12-03-2021 15:00-0400 Body temperature 97.2 [degF] [employer] Other [employer] Other 12-03-2021 15:00-0400 Body weight 65.77 kg Lyndsay [employer] Other [employer] Other 12-03-2021 15:00-0400 Diastolic blood pressure 62 mm[Hg] Lyndsay [employer] Other [employer] Other 12-03-2021 15:00-0400 Respiratory rate 20 /min Lyndsay Easterwood Other [employer] Other 12-03-2021 15:00-0400 Systolic blood pressure 124 mm[Hg] Lyndsay Easterwood Other [employer] Other 09-30-2021 17:00-0400 Body height 157.48 cm Lyndsay Easterwood Other [employer] Other 09-30-2021 17:00-0400 Body mass index (BMI) [Ratio] 27.62 kg/m2 Lyndsay Easterwood Other [employer] Other 09-30-2021 17:00-0400 Body temperature 97.2 [degF] Lyndsay Easterwood Other [employer] Other 09-30-2021 17:00-0400 Body weight 68.49 kg Lyndsay Panchitoerwood Other [employer] Other 09-30-2021 17:00-0400 Diastolic blood pressure 60 mm[Hg] Lyndsay Easterwood Other [employer] Other 09-30-2021 17:00-0400 Respiratory rate 20 /min Lyndsay Easterwood Other [employer] Other 09-30-2021 17:00-0400 SaO2% (BldA) [Mass fraction] 99 % Lyndsay Easterwood Other [employer] Other 09-30-2021 17:00-0400 Systolic blood pressure 125 mm[Hg] Lyndsay Easterwood Other [employer] Other Encounters Encounter Date Encounter Type Care Provider Facility Start: 02-21-2025 ambulatory SUSIE MADDOX Fac ility:[facility] Start: 02-07-2025 End: 02-07-2025 ambulatory Lyndsay Dunbar BLEACH ANALYST Work Phone: [facility] Work Phone: Start: 02-07-2025 End: 02-07-2025 Patient encounter procedure Lyndsay J Manjinder BLEACH ANALYST -[facility] [place] Work Phone: Start: 01-23-2025 End: 01-23-2025 Patient encounter procedure Bethany Gipson RT(R) Radiology Comment on above: Lumbar facet arthrop athy (Primary Dx); Pain in right hip; Greater trochanteric bursitis of right hip; Sacroiliitis; Midline low back pain without sciatica, unspecified chronicity; S/P hip replacement, right Start: 01-23-2025 End: 01-23-2025 Subsequent hospital visit by physician [facility] Radiology Comment on above: Low back pain, unspe cified back pain laterality, unspecified chronicity, unspecified whether sciatica present [M54.50] Start: 01-23-2025 End: 01-23-2025 ambulatory Bethany Gipson RT(R) Radiology Comment on above: Radiology XR Start: 01-22-2025 End: 01-22-2025 ambulatory Duc Ray Facility:[facility] Start: 01-22-2025 End: 01-22-2025 Patient encounter procedure Duc Ray [facility] Start: 01-18-2025 End: 01-18-2025 ambulatory Susie Maddox MD Work Phone: Pain Management Comment on above: PAIN QUESTIONNAIRE Start: 01-18-2025 End: 01-18-2025 E-mail encounter from caregiver Susie Maddox MD Work Phone: Pain Management Start: 01-18-2025 End: 01-18-2025 Telephone encounter Susie Maddox MD Work Phone: Pain Management Comment on above: Appointment Start: 01-11-2025 End: 01-11-2025 ambulatory OLIVE AMAYA Facility:[facility] Start: 01-11-2025 End: 01-11-2025 Patient encounter procedure Olive Nyolivia PA-C Work Phone: Orthopaedics Comment on above: Sacroiliitis (Primar y Dx); Right sciatic nerve pain; S/P hip replacement, right Start: 12-29-2024 End: 12-29-2024 ambulatory SHANEKA CLARK Facility:[facility] Start: 12-29-2024 End: 12-29-2024 Patient encounter procedure Shaneka Clark MD Work Phone: Orthopaedics Comment on above: Sacroiliitis (Primar y Dx) Start: 12-08-2024 End: 12-08-2024 Telephone encounter Tamara Peres PT [facility] Comment on above: re: PT Start: 12-07-2024 End: 12-07-2024 ambulatory OLIVE AMAYA Facility:[facility] Start: 12-07-2024 End: 12-07-2024 Patient encounter procedure Olive Jose Luis PA-C Work Phone: Orthopaedics Comment on above: Trochanteric bursiti s of right hip (Primary Dx); Sacroiliitis Start: 12-06-2024 End: 12-06-2024 Bamboo flowsheet Tamara Peres PT [facility] Start: 12-06-2024 End: 12-06-2024 Bamboo flowsheet Tamara Peres PT [facility] Start: 12-06-2024 End: 12-06-2024 ambulatory Tamara Peres PT [facility] Comment on above: 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); Trochanteric bursitis of right hip; Piriformis syndrome, right Start: 11-30-2024 End: 11-30-2024 Bamboo flowsheet Tamara Peres PT [facility] Start: 11-30-2024 End: 07-16-2025 Bamboo flowsheet Tamara Peres PT [facility] Start: 11-30-2024 End: 11-30-2024 ambulatory Tamara Peres PT [facility] Comment on above: 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); Trochanteric bursitis of right hip; Piriformis syndrome, right Start: 11-23-2024 End: 11-23-2024 Bamboo flowsheet Tamara Peres PT [facility] Start: 11-23-2024 End: 11-23-2024 Bamboo flowsheet Tamara Peres PT [facility] Start: 11-23-2024 End: 11-23-2024 ambulatory Tamara Peres PT [facility] Comment on above: 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); Trochanteric bursitis of right hip; Piriformis syndrome, right Start: 11-16-2024 End: 11-16-2024 ambulatory Teresa Croft PT Work Phone: [facility] Comment on above: 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); Trochanteric bursitis of right hip; Piriformis syndrome, right Start: 11-16-2024 End: 11-16-2024 Bamboo flowsheet Teresa Croft PT Work Phone: [facility] Start: 11-16-2024 End: 11-16-2024 Bamboo flowsheet Teresa Croft PT Work Phone: [facility] Start: 11-10-2024 End: 11-10-2024 Bamboo flowsheet Tamara Peres PT [facility] Start: 11-10-2024 End: 11-10-2024 Bamboo flowsheet Tamara Peres PT [facility] Start: 11-10-2024 End: 11-10-2024 Telephone encounter Olive Amaya PA-C Work Phone: Orthopaedics Comment on above: PT Order Start: 11-10-2024 End: 11-10-2024 ambulatory Tamara Peres PT [facility] Comment on above: Trochanteric bursiti s of right hip (Primary Dx); Primary osteoarthritis of right hip; Piriformis syndrome, right Start: 11-09-2024 End: 11-09-2024 ambulatory Lyndsay Dunbar APRN Work Phone: [facility] Work Phone: Start: 11-09-2024 End: 11-09-2024 Departed Referred Lyndsay Dunbar APRN -[facility] Start: 11-09-2024 Non-patient / Non-visit Lyndsay bains -[facility] Work Phone: Start: 11-07-2024 End: 11-07-2024 Patient encounter procedure Lyndsay Dunbar APRN -[facility] [place] Work Phone: Start: 10-06-2024 End: 10-06-2024 ambulatory OLIVE JOSE LUIS Facility:[facility] Start: 09-26-2024 End: 09-26-2024 Bamboo flowsheet Alyson Vega DPM Work Phone: [facility] Start: 09-26-2024 End: 09-26-2024 Bamboo flowsheet Alyson Vega DPM Work Phone: [facility] Start: 09-26-2024 End: 09-26-2024 Office outpatient visit 15 minutes Alyson Vega DPM Work Phone: [facility] Comment on above: Onychomycosis (Prima ry Dx); Pain in both feet; Corns and callosities Start: 09-26-2024 End: 09-26-2024 Refill Alyson Vega DPM Work Phone: [facility] Comment on above: Onychomycosis Start: 06-27-2024 End: 06-27-2024 Bamboo flowsheet Alyson Vega DPM Work Phone: [facility] Start: 06-27-2024 End: 06-27-2024 Bamboo flowsheet Alyson Vega DPM Work Phone: [facility] Start: 06-27-2024 End: 06-27-2024 ambulatory ALYSON H VEGA Not Available Start: 06-27-2024 End: 06-27-2024 Patient encounter procedure Alyson H Vega DPM Work Phone: [facility] Comment on above: Onychomycosis (Prima ry Dx); Pain in both feet; Corns and callosities Start: 2024 End: 2024 ambulatory [facility] Work Phone: Start: 2024 End: 2024 Patient encounter procedure [facility] [place] Work Phone: Start: 03-28-2024 End: 03-28-2024 Subsequent hospital visit by physician James Arriaga 1 Work Phone: Radiology Comment on above: Aftercare following right hip joint replacement surgery [Z47.1, Z96.641] Start: 03-28-2024 End: 03-28-2024 ambulatory OLIVE AMAYA Facility:[facility] Start: 03-28-2024 End: 03-28-2024 Patient encounter procedure Olive Amaya PA-C Work Phone: Orthopaedics Comment on above: Trochanteric bursiti s of right hip (Primary Dx); Piriformis syndrome, right; Aftercare following right hip joint replacement surgery Start: 03-16-2024 End: 03-16-2024 Bamboo flowsheet Evelyn Callawaybley TWISTING FRAME FIXER [facility] Start: 03-16-2024 End: 03-16-2024 Bamboo flowsheet Evelynjovan Callawaybley TWISTING FRAME FIXER [facility] Start: 03-16-2024 End: 03-16-2024 ambulatory Evelyn Lindery TWISTING FRAME FIXER [facility] Comment on above: Dizziness [...] 03-11-2024 End: 03-11-2024 Bamboo flowsheet Evelyn Kelbley TWISTING FRAME FIXER [facility] Start: 03-11-2024 End: 03-11-2024 Bamboo flowsheet Evelyn Kelbley TWISTING FRAME FIXER [facility] Start: 03-11-2024 End: 03-11-2024 ambulatory Evelyn Kelbley TWISTING FRAME FIXER [facility] Comment on above: Dizziness (Primary D x); Cervical paraspinal muscle spasm Start: 03-07-2024 End: 03-07-2024 Bamboo flowsheet Hui Brink TWISTING FRAME FIXER [facility] Start: 03-07-2024 End: 03-07-2024 Bamboo flowsheet Hui Brink TWISTING FRAME FIXER [facility] Start: 03-07-2024 End: 03-07-2024 ambulatory Hui Brink TWISTING FRAME FIXER [facility] Comment on above: Dizziness (Primary D x); Cervical paraspinal muscle spasm Start: 03-04-2024 End: 03-04-2024 Bamboo flowsheet Evelyn Kelbley TWISTING FRAME FIXER [facility] Start: 03-04-2024 End: 03-04-2024 Bamboo flowsheet Evelyn Kelbley TWISTING FRAME FIXER [facility] Start: 03-04-2024 End: 03-04-2024 ambulatory Evelyn Kelbley TWISTING FRAME FIXER [facility] Comment on above: Dizziness (Primary D x); Cervical paraspinal muscle spasm Start: 02-26-2024 End: 02-26-2024 Bamboo flowsheet Evelyn Kelbley TWISTING FRAME FIXER [facility] Start: 02-26-2024 End: 02-26-2024 Bamboo flowsheet Evelyn Kelbley TWISTING FRAME FIXER [facility] Start: 02-26-2024 End: 02-26-2024 ambulatory Evelyn Kelbley TWISTING FRAME FIXER [facility] Comment on above: Dizziness (Primary D x); Cervical paraspinal muscle spasm Start: 02-24-2024 End: 02-24-2024 Bamboo flowsalex Galvin Cherie Melodytena PT Work Phone: [facility] Start: 02-24-2024 End: 02-24-2024 Bamboo flowsalex Teresa Croft PT Work Phone: [facility] [...] Bamboo flowsalex Bonilla MD Work Phone: [facility] Start: 02-16-2024 End: 02-16-2024 Bamboo flowsalex Bonilla MD Work Phone: [facility] Start: 02-16-2024 End: 02-16-2024 Office outpatient new 45 minutes Kota Bonilla MD Work Phone: [facility] Comment on above: Dizziness (Primary D x); Cervical paraspinal muscle spasm Start: 02-16-2024 End: 02-16-2024 ambulatory KOTA BONILLA Not Available Start: 02-08-2024 End: 02-08-2024 ambulatory [facility] Work Phone: Start: 02-08-2024 End: 02-08-2024 Patient encounter procedure [facility] [place] Work Phone: Start: 01-11-2024 End: 01-11-2024 Refill Isaiah Arriaga MD Work Phone: Orthopaedics Start: 10-29-2023 End: 10-29-2023 ambulatory BLEACH ANALYST Lyndsay Dunbar Work Phone: [facility] Work Phone: Start: 10-29-2023 End: 10-29-2023 Patient encounter procedure BLEACH ANALYST Lyndsay Dunbar Work Phone: [facility] Work Phone: Start: 10-09-2023 Non-patient / Non-visit WINNIE Bronwyn [facility] Work Phone: [facility] Work Phone: Start: 09-23-2023 End: [...] Phone: Orthopaedics Start: 09-04-2023 End: 09-04-2023 ambulatory BLEACH ANALYST Lyndsay Valadez Panchitomauricio Work Phone: [facility] Work Phone: Start: 09-04-2023 End: 09-04-2023 Discharged Recurring WINNIE Dunbar Work Phone: [facility] [place] Work Phone: Start: 08-11-2023 Refill Isaiah reagan MD Work Phone: Orthopaedics Start: 08-05-2023 Telephone encounter Isaiah Arriaga MD Work Phone: [address] [place] [address] Comment on above: Appointment Start: 07-31-2023 Non-patient / Non-visit WINNIE Dunbar Work Phone: [facility] [employer] Work Phone: Start: 05-04-2023 End: 05-04-2023 ambulatory Lyndsay Easterwood Other [facility] [employer] Other Start: 05-04-2023 Telephone encounter Lyndsayasya Flanaganerwood [facility] Start: 04-29-2023 End: 04-29-2023 Patient encounter procedure Isaiah Arriaga MD Work Phone: Orthopaedics Comment on above: Aftercare following right hip joint replacement surgery (Primary Dx) Start: 04-27-2023 End: 04-27-2023 ambulatory Lyndsay Easterwood Other [employer] Other Start: 04-27-2023 Office outpatient vi sit 25 minutes Lyndsay Easterwood [facility] Start: 04-27-2023 Telephone encounter Lyndsay Panchitoerwood [facility] Start: 04-15-2023 End: 04-15-2023 ambulatory Lyndsay Easterwood Other [facility] [employer] Other Start: 04-15-2023 Office outpatient vi sit 40 minutes Lyndsay Easterwood [facility] Start: 04-13-2023 End: 04-13-2023 Patient encounter procedure Olive Amaya PA-C Work Phone: Orthopaedics Comment on above: Aftercare following right hip joint replacement surgery (Primary Dx); Postoperative lightheadedness Start: 04-13-2023 End: 04-13-2023 Subsequent hospital visit by physician James Arriaga 1 Work Phone: Radiology Comment on above: Aftercare following right hip joint replacement surgery [Z47.1, Z96.641] Start: 03-17-2023 End: 03-19-2023 ambulatory [facility]NDSAY DUNBAR [facility] Start: 03-16-2023 Orders Only Isaiah reagan [...] encounter status Isaiah Arriaga MD Work Phone: [facility] Work Phone: Start: 12-22-2022 End: 12-22-2022 Subsequent hospital visit by physician James Arriaga 1 Work Phone: Radiology Comment on above: hip pain Start: 10-31-2022 End: 10-31-2022 ambulatory WINNIE Dunbar Work Phone: [facility] Work Phone: Start: 10-31-2022 End: 10-31-2022 Patient encounter procedure WINNIE Dunbar Work Phone: [facility] Work Phone: Start: 10-23-2022 End: 10-23-2022 ambulatory Lyndsay Dunbar Other [employer] Other Start: 10-23-2022 Patient encounter procedure Lyndsay Dunbar [facility] Start: 10-15-2022 End: 10-15-2022 ambulatory Lyndsay Dunbar Other [employer] Other Start: 10-15-2022 Telephone encounter Lyndsay Dunbra [facility] Start: 09-25-2022 End: 09-25-2022 ambulatory Lyndsay Dunbar Other [employer] Other Start: 09-25-2022 [facility] Start: 09-10-2022 End: 09-10-2022 Patient encounter procedure Wilmer Schmitt POLYMERIZATION KETTLE OPERATOR Work Phone: Ophthalmology Comment on above: Post-operative state (Primary Dx) Start: 09-03-2022 End: 09-03-2022 ambulatory Lyndsay Dunbar Other [employer] Other Start: 09-03-2022 Telephone encounter Lyndsay Dunbar [facility] Start: 08-18-2022 Telephone encounter Kalina Hanks RNhelp desk intern Comment on above: Preparations For Libra gerber Start: 08-05-2022 End: 08-05-2022 [facility] Start: 08-05-2022 End: 08-05-2022 ambulatory [facility] [place] [facility] Work Phone: Pre Anesthesia Comment on above: Pre-op evaluation (P rimary Dx); Stage 3 chronic kidney disease, unspecified whether stage 3a or 3b CKD (HCC) Start: 08-05-2022 End: 08-05-2022 Preprocedural examination done [facility] [place] [facility] Work Phone: Pre Anesthesia Start: 07-15-2022 [...] Ca re Visit Nadir Tolbert [facility] [address] Start: 06-17-2022 End: 06-17-2022 ambulatory Alex Frederick [...] Refill Request Start: 04-17-2022 End: 04-18-2022 ambulatory [facility] Facility:[facility] Start: 04-15-2022 End: 04-15-2022 ambulatory [facility] Other [employer] Other Start: 04-15-[address] [facility] Start: 04-15-2022 End: 04-15-2022 Patient encounter procedure Alex Frederick MD Work Phone: Ophthalmology Comment on above: Status post corneal transplant (Primary Dx); Pseudophakia Start: 04-14-2022 ambulatory Alex boykin MD Work Phone: Ophthalmology Comment on above: Research (FECD STUDY ) Start: 03-25-2022 Preprocedural examin ation done Alex Frederick MD Work Phone: [facility] Work Phone: Start: 03-18-2022 End: 03-18-2022 Patient encounter procedure Alex Frederick MD Work Phone: Ophthalmology Comment on above: Fuchs' corneal dystr ophy of both eyes (Primary Dx); Status post corneal transplant Start: 03-17-2022 ambulatory Alex boykin MD Work Phone: Ophthalmology Comment on above: Research (FECD STUDY ) Start: 03-07-2022 End: 03-07-2022 Patient encounter procedure Frida Rick APRN.POLYMERIZATION KETTLE OPERATOR Work Phone: Internal Medicine Comment on above: Pre-operative examin ation Nuclear sclerotic ca taract of both eyes (Primary Dx) Fuchs' corneal dystr ophy of both eyes (Primary Dx) Start: 03-07-2022 End: 03-07-2022 Preprocedural examination done Frida Rick BLEACH ANALYST.POLYMERIZATION KETTLE OPERATOR Work Phone: Internal Medicine Start: 01-06-2022 End: 01-06-2022 Patient encounter procedure Isaiah Arriaga MD Work Phone: Orthopaedics Comment on above: 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) Start: 01-06-2022 End: 01-06-2022 Subsequent hospital visit by physician James Arriaga 1 Work Phone: Radiology Comment on above: Primary osteoarthrit is of right hip [M16.11] Start: 12-25-2021 End: 12-25-2021 Patient encounter procedure Carl Agudelo [facility] Start: 12-05-2021 End: 12-05-2021 ambulatory Lyndsay Landeros [employer] Other Start: 12-05-2021 Telephone encounter Lyndsay Dunbar [facility] Start: 12-04-2021 End: 12-05-2021 ambulatory LYNDSAY DUNBAR Facility:[facility] Start: 12-03-2021 End: 12-03-2021 ambulatory Lyndsay Dunbar Other [employer] Other Start: 12-03-2021 Office outpatient vi sit 15 minutes Lyndsay Dunbar [facility] Start: 11-26-2021 End: 11-26-2021 ambulatory Lyndsay Dunbar Other [employer] Other Start: 11-26-2021 [facility] Start: 11-19-2021 End: 11-19-2021 ambulatory Agustin Sevilla Other [employer] Other Start: 11-19-2021 Telephone encounter Agustin MOSQUERA [employer] Start: 11-05-2021 ambulatory Evette Nascimento RT(R) Natalia garcia Comment on above: Radiology XR Start: 11-05-2021 End: 11-05-2021 Patient encounter procedure Evette Nascimento RT(R) ARSLAN PERKINS Comment on above: [...] eyes Start: 10-31-2021 End: 10-31-2021 ambulatory Lyndsay Dunbar Other [employer] Other Start: 10-31-2021 Telephone encounter Lyndsay Panchitoerwood [facility] Start: 10-28-2021 End: 10-28-2021 ambulatory Lyndsayasya Dunbar Other [employer] Other Start: 10-28-2021 Telephone encounter Lyndsayasya Flanaganerwood [facility] Start: 10-25-2021 End: 10-25-2021 Subsequent hospital visit by physician James Arriaga 1 Work Phone: Radiology Comment on above: Pain [R52] Start: 10-25-2021 ambulatory Bethany mohr RT(R) Radiology Comment on above: Radiology XR Start: 10-25-2021 End: 10-25-2021 Patient encounter procedure Bethany Gipson RT(R) ARSLAN PERKINS Comment on above: 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); Right sciatic nerve pain Start: 10-22-2021 End: 10-22-2021 ambulatory Lyndsay Dunbar Other [employer] Other Start: 10-22-2021 Telephone encounter Lyndsay Dunbar [employer] Start: 10-17-2021 End: 10-17-2021 ambulatory Agustin Sevilla Other [employer] Other Start: 10-17-2021 Telephone encounter Agustin Sevilla FP [employer] Start: 10-07-2021 End: 10-07-2021 ambulatory Lyndsay Manjinder Other [employer] Other Start: 10-07-2021 Telephone encounter Lyndsay Raphaelwood [facility] Start: 10-04-2021 End: 10-05-2021 ambulatory LYNDSAY MANJINDER Facility:[facility] Start: 10-02-2021 End: 10-02-2021 ambulatory Lyndsay Dunbar Other [employer] Other Start: 10-02-2021 Telephone encounter Lyndsay Dunbar [facility] [facility] Start: 09-30-2021 End: 09-30-2021 ambulatory Lyndsay Dunbar Other [employer] Other Start: 09-30-2021 Office outpatient ne w 60 minutes [facility] Start: 08-06-2021 Telephone encounter Alex Frederick MD Work Phone: Ophthalmology Comment on above: Received Outside Med ical Records Procedures Date Procedure Procedure Detail Performing Clinician Start: 01-23-2025 Radex spine lumbosac ral 2/3 views Susie Maddox MD Work Phone: Start: 12-29-2024 End: 12-29-2024 Arthrocentesis aspir&/inj major jt/bursa w/us Shaneka Clark MD Work Phone: Start: 12-07-2024 Arthrocentesis aspir &/inj major jt/bursa w/o us Olive Scotch PA-C Work Phone: Start: 11-09-2024 Urine culture Lyndsay martínez BLEACH ANALYST Work Phone: Start: 03-28-2024 Radiologic examinati on pelvis 1/2 [...] uni/bi Alex Frederick MD Work Phone: Start: 03-18-2022 Cmptr [...] Mammography Kota Barnhart Work Phone: section Carl carroll Corneal structure (b joyce structure) Duc Cory H/O: cornea recipient Status pos t corneal transplant Alex Frederick MD Work Phone: H/O: cornea recipient Status pos t corneal transplant Alex Frederick MD Work Phone: H/O: cornea recipient Status pos t corneal transplant Alex Frederick MD Work Phone: Insertion of hip prosthesis Duc Markpsey Ligation of fallopia n tube Carl Agudelo Neck pain (finding) Carl ellison Comment on above: surgery Plan of Treatment Date Care Activity Detail Author Start: 04-07-2029 Urine microalbumin profile [facility] Start: 03-19-2026 [facility] Start: 01-07-2026 Diabetes Screening [facility] Start: 03-06-2025 End: 03-06-2025 Patient encounter procedure 03/06/2025 2:00 PM EDT Office Visit Pain Management [address] [place] [address] Susie Maddox MD [address] [facility] [place] [address] AFTER MRI Pain Management Comment on above: AFTER MRI Start: 02-21-2025 End: 02-21-2025 Patient encounter procedure 02/21/2025 7:20 AM EDT Appointment Radiology [address] [place] [address] Dx: Midline low back pain without sciatica, unspecified chronicity [M54.50] Radiology Comment on above: Dx: Midline low back pain without sciatica, unspecified chronicity [M54.50] Start: 01-23-2025 End: 01-23-2025 Patient encounter procedure 01/23/2025 8:30 AM EDT Office Visit Pain Management [address] [place] [address] Susie Maddox MD [address] [facility] [place] [address] LBP, sciatica Pain Management Comment on above: LBP, sciatica Start: 01-16-2025 Influenza [facility] Start: 01-11-2025 End: 01-11-2025 Patient encounter procedure 01/11/2025 11:30 AM EDT Office Visit Orthopaedics [address] [place] [address] Olive Amaya PA-C [address] [place] [address] RIGHT HIP F/U Orthopaedics Comment on above: RIGHT HIP F/U Start: 12-29-2024 End: 12-29-2024 Patient encounter procedure 12/29/2024 3:40 PM EDT Office Visit Orthopaedics [address] [place] [address] Shaneka Clark MD [address] [place], [place] [id number] USGI R SI injection Orthopaedics Comment on above: USGI R SI injection Start: 12-26-2024 End: 12-26-2024 Patient encounter procedure 12/26/2024 11:30 AM EDT Procedure Visit [facility] [address] [place] [id number] Alyson Vega DPM [address] [place] [address] [facility] Start: 12-22-2024 End: 12-22-2024 ambulatory 12/22/2024 12:30 PM EDT Treatment [facility] [address] [place] [id number] Tamara Peres, PT [facility] Start: 12-07-2024 End: 12-07-2024 Patient encounter procedure 12/07/2024 12:30 PM EDT Office Visit Orthopaedics [address] [place] [address] Olive Amaya PA-C [address] [place] [address] 2 month f/u RIGHT HIP PAIN Orthopaedics Comment on above: 2 month f/u RIGHT HI P PAIN Start: 12-06-2024 End: 12-06-2024 ambulatory [facility] Comment on above: Arrived Start: 11-30-2024 End: 11-30-2024 ambulatory 11/30/2024 10:00 AM EDT Treatment [facility] [address] [place] [address] Tamara Peres, PT [facility] Start: 11-23-2024 End: 11-23-2024 ambulatory [facility] Comment on above: Arrived Start: 11-16-2024 End: 11-16-2024 ambulatory [facility] Comment on above: Arrived Start: 11-09-2024 Bacteria identified in Urine by Culture Urine Culture [facility] Start: 11-09-2024 Urine culture [facility] Start: 09-26-2024 End: 09-26-2024 Patient encounter procedure [facility] Comment on above: Arrived Start: 05-18-2024 Advance Directive Discussion Advance Directive Discussion [facility] Start: 04-25-2024 End: 04-25-2024 Patient encounter procedure 04/25/2024 8:45 AM EST Office Visit Orthopaedics [address] [place] [address] Olive Amaya PA-C [address] [place] [address] 4 weel F/U Right Hip Orthopaedics Comment on above: 4 weel F/U Right Hip Start: 04-06-2024 End: 04-06-2024 Patient encounter procedure 04/06/2024 11:30 AM EST Procedure Visit [facility] [address] [place] [address] Alyson Vega DPM [address] [place] [address] [facility] Start: 03-28-2024 End: 03-28-2024 Patient encounter procedure 03/28/2024 8:00 AM EST Office Visit Orthopaedics [address] [place] [address] Olive Amaya PA-C [address] [place] [address] 6 Month F/U Right Hip Orthopaedics Comment on above: 6 Month F/U Right Hi p Start: 03-19-2024 Creatinine measurement Serum Creatin ine [facility] Start: 03-19-2024 Serum Creatinine Serum Creatinine [facility] Start: 03-16-2024 End: 03-16-2024 ambulatory [facility] Comment on above: Arrived Start: 03-14-2024 End: 03-14-2024 ambulatory 03/14/2024 1:00 PM EDT Treatment [facility] [address] [place] [address] Teresa Croft, PT [address] [place] [address] [facility] Start: 03-11-2024 End: 03-11-2024 ambulatory [facility] Comment on above: Arrived Start: 03-09-2024 End: 03-09-2024 ambulatory 03/09/2024 12:30 PM EDT Treatment [facility] [address] [place] [address] Evelyn Link, LUIS [facility] Start: 03-07-2024 End: 03-07-2024 ambulatory [facility] Comment on above: Arrived Start: 03-04-2024 End: 03-04-2024 ambulatory [facility] Comment on above: Arrived Start: 02-29-2024 End: 02-29-2024 Patient encounter procedure 02/29/2024 1:15 PM EDT Procedure Visit [facility] [address] [place] [phone] Vega, Alyson H, DPM [address] [place] [address] [facility] Start: 02-26-2024 End: 02-26-2024 ambulatory [facility] Comment on above: Arrived Start: 02-24-2024 End: 02-24-2024 ambulatory [facility] Comment on above: Dizziness; Cervical paraspinal muscle spasm Start: 02-16-2024 End: 02-16-2024 Patient encounter procedure 02/16/2024 10:15 AM EDT Office Visit [facility] [address] [place] [address] Kota Bonilla MD [address] [facility] [address] [place] [address] Arrived [facility] Comment on above: Arrived Start: 01-17-2024 Covid-19 Vaccine ( season) Covid-19 Vaccine ( season) [facility] Start: 01-17-2024 Covid-19 Vaccine ( season) Covid-19 Vaccine ( season) [facility] Start: 01-17-2024 Influenza vaccination Influenza Vacc ine (#1) [facility] Start: 01-08-2024 Serum Creatinine Serum Creatinine Cl [facility] Start: 10-29-2023 Patient referral [facility] Work Phone: Start: 09-23-2023 End: 09-23-2023 Patient encounter procedure 09/23/2023 8:00 AM EDT Office Visit Orthopaedics [address] [place], [place] [id number] Olive Amaya PA-C [address] [place], [place] [id number] POST OP RIGHT THR 03/17/23 Orthopaedics Comment on above: POST OP RIGHT THR Start: 06-30-2023 ANNUAL PCP TEAM QUALITY CONTROL TECH NOEMI DISEASE VISIT ANNUAL PCP TEAM CHRONIC DISEASE VISIT [facility] Start: 06-21-2023 Covid-19 Vaccine ( season) Covid-19 Vaccine () [facility] Start: 05-18-2023 Advance Directive Discussion Advance Directive Discussion [facility] Start: 05-18-2023 Behavioral Health Screening Behavioral Health Screening [facility] Start: 05-18-2023 Depression Assessment Depression Ass essment [facility] Start: 02-15-2023 End: 04-17-2023 Bacteria identified in Urine by Culture URINE CULTURE Microbiology Routine Frequent urination Expected: 02/15/2023 (Approximate), Expires: 04/17/2023 [facility] Work Phone: Comment on above: Expected: 02/15/2023 (Approximate), Expires: 04/17/2023 Start: 02-15-2023 End: 04-17-2023 TYPE AND SCREEN,30 DAY TYPE AND SCREEN,30 DAY Blood Bank Routine Pre-op testing Expected: 02/15/2023 (Approximate), Expires: 04/17/2023 [facility] Work Phone: Comment on above: Expected: 02/15/2023 (Approximate), Expires: 04/17/2023 Start: 01-16-2023 Covid-19 Vaccine () Covid-19 Vaccine () [facility] Start: 01-16-2023 Influenza vaccination [facility] Start: 12-23-2022 End: 02-22-2023 Basic metabolic 2000 panel - Serum or Plasma BASIC METABOLIC PNL Lab Routine Pre-op testing Expected: 12/23/2022, Expires: 02/22/2023 [facility] Work Phone: Comment on above: Expected: 12/23/2022 , Expires: 02/22/2023 Start: 12-23-2022 End: 02-22-2023 CBC W Auto Differential panel - Blood CBC + DIFF Lab Routine Pre-op testing Expected: 12/23/2022, Expires: 02/22/2023 [facility] Work Phone: Comment on above: Expected: 12/23/2022 , Expires: 02/22/2023 Start: 12-23-2022 End: 02-22-2023 Hemoglobin A1c in Blood HGB A1C Lab Routine Pre-op testing Abnormal finding of blood chemistry, unspecified Expected: 12/23/2022, Expires: 02/22/2023 [facility] Work Phone: Comment on above: Expected: 12/23/2022 , Expires: 02/22/2023 Start: 12-23-2022 End: 02-22-2023 Urinalysis complete panel - Urine URINALYSIS, WITH MICROSCOPIC Lab Routine Frequent urination Expected: 12/23/2022, Expires: 02/22/2023 [facility] Work Phone: Comment on above: Expected: 12/23/2022 , Expires: 02/22/2023 Start: 07-23-2022 COVID-19 VACCINE (6 - Moderna series) COVID-19 VACCINE (6 - Moderna series) [facility] Start: 05-18-2022 ADVANCE DIRECTIVE DISCUSSION ADVANCE DIRECTIVE DISCUSSION [facility] Start: 05-18-2022 DEPRESSION ASSESSMENT DEPRESSION ASS ESSMENT [facility] Start: 01-16-2022 Influenza vaccination [facility] Start: 11-29-2021 COVID-19 VACCINE (5 - Booster for Moderna series) COVID-19 VACCINE (5 - Booster for Moderna series) [facility] Start: 05-18-2021 ADVANCE DIRECTIVE DISCUSSION ADVANCE DIRECTIVE DISCUSSION [facility] Start: 05-18-2021 DEPRESSION ASSESSMENT DEPRESSION ASS ESSMENT [facility] Start: 06-21-2019 Screening for malign ant neoplasm of breast [facility] Start: 10-16-2016 Medicare Annual Wellness Visit Medicare Annual Wellness Visit [facility] Start: 2016 BONE DENSITY BONE DENSITY [facility] Start: 2016 Bone Density Screening Bone Density Screening [facility] Start: 2016 PNEUMOCOCCAL: 65+ (1 - PCV) PNEUMOCOCCAL: 65+ (1 - PCV) [facility] Start: 2016 PNEUMOVAX AGE 65 AND OVER WITH 5YR LOOKBACK (#1) PNEUMOVAX AGE 65 AND OVER WITH 5YR LOOKBACK (#1) [facility] Start: 2016 Screening for osteoporosis Bone Density Screening [facility] Start: 2011 RSV Vaccine (1 - 1-d ose 60+ series) RSV Vaccine (1 - 1-dose 60+ series) [facility] Start: 2001 SHINGRIX VACCINE (1 of 2) SHINGRIX VACCINE (1 of 2) [facility] Start: 1996 COLOGUARD (FIT-DNA) COLOGUARD (FIT-D NA) [facility] Start: 1996 Colonoscopy COLONOSCOPY [facility] Start: 1996 COLORECTAL CANCER SCREENING COLORECTAL CANCER SCREENING [facility] Start: [address] COLONOGRAPHY [facility] Start: 1996 DIABETES SCREEN DIABETES SCREEN [facility] Start: 1996 FECAL OCCULT BLOOD FECAL OCCULT BLOO D [facility] Start: 1996 Lipid 1996 panel - Serum or Plasma Lipid Screening [facility] Start: 1996 Lipid panel Lipid Screening [facility] Start: 1996 LIPID SCREEN LIPID SCREEN [facility] Start: 1996 Screening for malign ant neoplasm of colon [facility] Start: 1996 SIGMOIDOSCOPY SIGMOIDOSCOPY [facility] Start: 1991 Mammography [facility] Start: 1991 Screening for malign ant neoplasm of breast Mammogram Screening [facility] Start: 1970 Urine microalbumin profile DTAP,TDAP,TD (1 - Tdap) [facility] Start: 1969 ANNUAL PCP TEAM QUALITY CONTROL TECH NOEMI DISEASE VISIT ANNUAL PCP TEAM CHRONIC DISEASE VISIT [facility] Start: 1969 Anxiety Screening Anxiety Screening [facility] Start: 1969 Depression Screening Depression Scre ening [facility] Start: 1969 HEMOGLOBIN/HEMATOCRIT HEMOGLOBIN/HEM ATOCRIT [facility] Start: 1969 HEPATITIS C SCREENING HEPATITIS C [facility] Start: 1969 Hepatitis C screening Hepatitis C [facility] Start: 1969 SERUM CREATININE SERUM CREATININE [facility] Start: 1963 Adult depression screening assessment DEPRESSION SCREENING [facility] Start: 1956 COVID-19 VACCINE (1) COVID-19 VACCIN E (1) [facility] Start: 1951 Medicare Annual Wellness (AWV) Medicare Annual Wellness (AWV) [facility] Start: 1950 Screening for malign ant neoplasm of colon [facility] Comprehensive metabo lic 2000 panel - Serum or Plasma [facility] MG Breast - bilatera l Screening [facility] End: 02-22-2026 MR Lumbar spine WO contrast MRI LUMBAR SPINE WO IVCON Radiology Routine Midline low back pain without sciatica, unspecified chronicity 1 Occurrences starting 01/23/2025 until 02/22/2026 [facility] Work Phone: Comment on above: 1 Occurrences starti ng 01/23/2025 until 02/22/2026 Patient referral [facility] Work Phone: Urine culture [facility] End: 02-17-2026 XR Lumbar spine AP and Lateral XR LUMBAR LIMITED 2V AP/LAT Radiology Routine Low back pain, unspecified back pain laterality, unspecified chronicity, unspecified whether sciatica present 1 Occurrences starting 01/18/2025 until 02/17/2026 [facility] Work Phone: Comment on above: 1 Occurrences starti ng 01/18/2025 until 02/17/2026 [facility] AV OR [facility] Immunizations Immunization Date Immunization Notes Care Provider Zane machuca 02-04-2024 COVID-19 (PFIZER) 12Y and older [facility] BLE[facility] ANALYST Work Phone: [facility] 02-04-2024 Seasonal trivalent influenza vaccine, adjuvanted, preservative free [facility] BLEACH ANALYST Work Phone: [facility] 02-04-2024 influenza virus vaccine, unspecified formulation Teresa Croft PT Work Phone: [facility] 11-09-2023 yellow fever vaccine Duc Bronwyn bundy [facility] 04-29-2023 RSV vaccine preF3, recombinant Duc Ray [facility] 04-29-2023 RSV, preF3, adj, pf [facility] 02-18-2023 COVID-19 Moderna (SPIKEVAX) [facility] Other [facility] 02-18-2023 Influenza vaccine, quadrivalent, adjuvanted [facility] 02-18-2023 influenza, injectabl e, quadrivalent, preservative free BLEACH ANALYST [facility] Work Phone: [facility] 02-18-2023 influenza, injectabl e, quadrivalent, contains preservative [facility] Other [employer] [facility] [employer] Other 02-18-2023 influenza virus vaccine, unspecified formulation Isaiah Arriaga MD Work Phone: [facility] 03-25-2022 influenza, injectabl e, quadrivalent, contains preservative Nadir Tolbert Other [facility] 03-25-2022 COVID-19 Pfizer (bivalent) Nadir Tolbert Other [facility] 03-25-2022 influenza (aIIV4) vaccine, age 65+ yr, quadrivalent, PF (FLUAD QUADRIVALENT) Zahida Medrano MD Work Phone: [facility] 03-25-2022 influenza, injectabl e, quadrivalent, preservative free BLEACH ANALYST [facility] Work Phone: [facility] 03-25-2022 influenza virus vaccine, unspecified formulation Evette Miller RN [facility] 10-04-2021 COVID-19 Moderna Lyndsay Karmasphere [employer] Other [employer] Other Comment on above: Result Comment: 2021: [id number] 03-30-2021 COVID-19 Moderna Lyndsay Panchitoer wood Other [employer] Other Comment on above: Result Comment: 2021: [id number] 03-01-2021 influenza, injectabl e, quadrivalent, contains preservative Lyndsay Easterwood Other [employer] Other 03-01-2021 influenza (aIIV4) vaccine, age 65+ yr, quadrivalent, PF (FLUAD QUADRIVALENT) Frida Banjac BLEACH ANALYST.POLYMERIZATION KETTLE OPERATOR Work Phone: [facility] Work Phone: 03-01-2021 influenza virus vaccine, unspecified formulation [facility] 03-01-2021 influenza, injectabl e, quadrivalent, preservative free BLEACH ANALYST Lyndsay Dunbar Work Phone: [facility] 08-08-2020 COVID-19 Moderna Lyndsay Easter wood Other [employer] Other 07-12-2020 COVID-19 Moderna Lyndsay Easter wood Other [employer] Other 04-07-2019 pneumococcal polysaccharide vaccine, 23 valent Lyndsay Easterwood Other [employer] Other 04-07-2019 influenza virus vaccine, unspecified formulation [facility] 04-07-2019 Seasonal trivalent influenza vaccine, adjuvanted, preservative free Frida Banjac BLEACH ANALYST.POLYMERIZATION KETTLE OPERATOR Work Phone: [facility] Work Phone: 04-07-2019 tetanus and diphther ia toxoids, adsorbed, preservative free, for adult use (5 Lf of tetanus toxoid and 2 Lf of diphtheria toxoid) BLEACH ANALYST Lyndsay Panchitoerwood Work Phone: [facility] 04-07-2019 tetanus toxoid, reduced diphtheria toxoid, and acellular pertussis vaccine, adsorbed Lyndsay Karmaspherewood Other [facility] [employer] Other 07-20-2018 zoster vaccine recombinant Lyndsay Panchitotricia Other [facility] [employer] Other 03-23-[address] [facility] 2017 pneumococcal conjuga te vaccine, 13 valent Lyndsay [employer] Other [facility] [employer] Other 03-26-2017 influenza virus vaccine, unspecified formulation [facility] 03-26-2017 influenza, high dose seasonal, preservative-free Frida Banjac BLEACH ANALYST.[facility] Work Phone: [facility] Work Phone: 01-02-2015 hepatitis A vaccine, adult dosage [facility] 06-14-2014 hepatitis A vaccine, adult dosage [facility] 06-14-2014 typhoid vaccine, parenteral, other than acetone-killed, dried Frida Banjac BLEACH ANALYST.POLYMERIZATION KETTLE OPERATOR Work Phone: [facility] Work Phone: 05-08-2009 novel [id number], preservative-free, injectable Frida Banjac BLEACH ANALYST.POLYMERIZATION KETTLE OPERATOR Work Phone: [facility] Work Phone: NEGATED: Highlighted row has not occurred!01-22-2022 influenza virus vaccine, unspecified formulation Duc Ray [facility] Comment on above: Result Comment: get in february Payers Date Payer Category Payer Unknown [id number] 2022 Private Health Insurance [id number] 2021 Unknown [id number] 2016 Medicare MEDICARE MEDICAR E A AND B [id number] 2016-Present [phone] [place] [address] Medicare [id number] 2016 Medicare [id number]. [id number] 1959 Medicare [id number] [id number] 1959 Unknown [id number] 2.16.840.1.541607.19 1951 Unknown [id number] 2.16.840.1.169716.3.579.2.59 3 1951 Unknown [id number] 2.16.840.1.453230.3.579.2.59 3 1951 Unknown [id number] 2.16.840.1.329412.3.579.2.59 3 1951 Unknown [id number] 2.16.840.1.955376.3.579.2.12 59 1951 Unknown [id number] 2.16.840.1.468829.3.579.2.12 59 1951 Unknown [id number] 2.16.840.1.229044.3.579.2.12 59 1951 Unknown [id number] 2.16.840.1.938146.3.579.2.12 59 1951 Unknown [id number] 2.16.840.1.145719.3.579.2.12 59 1951 Unknown [id number] 2.16.840.1.794270.3.579.2.12 59 1951 Unknown [id number] 2.16.840.1.854655.3.579.2.12 59 1951 Unknown [id number] 2.16.840.1.506401.3.579.2.12 59 1951 Unknown [id number] 2.16.840.1.028702.3.579.2.12 59 1951 Unknown [id number] 2.16.840.1.648049.3.579.2.12 59 1951 Unknown [id number] 2.16.840.1.727779.3.579.2.12 59 1951 Unknown [id number] 2.16.840.1.483853.3.579.2.12 59 1951 Unknown [id number] 2.16.840.1.257514.3.579.2.12 1951 Unknown [id number] 2.16.840.1.066439.3.579.2.12 1951 Unknown [id number] 2.16.840.1.200595.3.579.2.12 59 1951 Unknown [id number] 2.16.840.1.652713.3.579.2.72 7 Medicare [id number] Private Health Insurance [employer] [id number] Self-pay Self Pay [id number] Unknown MMO [employer] [id number] Unknown Regular Auto/Medical [id number] Unknown Regular Auto/Liability 20210 2090 [id number] Social History Date Type Detail Facility Tobacco smoking stat [facility] Tobacco smoking consumption unknown [facility] Start: 1950 Sex Assigned At Not on file [facility] Start: 1950 Sex Assigned At Female [facility] Start: 10-15-2021 End: 04-14-2022 Exposure to SARS-CoV-2 (event) Not sure [facility] Start: 06-29-2022 End: 10-14-2022 Sex Assigned At [employer] Other Start: 12-25-2021 End: 02-02-2025 Tobacco smoking status Ex-smoker (finding) [facility] Start: 03-04-2022 End: 03-14-2022 Exposure to SARS-CoV-2 (event) Unable to assess [facility] Start: 05-18-1972 End: 05-18-1973 History of tobacco use [facility] [facility] Start: 05-18-1972 End: 05-18-1973 History of tobacco use Cigarette Smoker [facility] Start: 06-30-2022 End: 10-14-2022 Cigarettes smoked current (pack per day) - Reported 0.2 [facility] Start: 06-30-2022 Tobacco use and exposure Smokeless tobacco non-user [facility] Start: 06-30-2022 End: 06-02-2023 Alcohol intake Current drinker of alcohol (finding) [facility] Start: 06-29-2022 History SDOH Alcohol Frequency 3 [facility] Start: 06-29-2022 History SDOH Alcohol Std Drinks 1 [facility] Start: 06-29-2022 History SDOH Social Connections Phone 2 [facility] Start: 06-29-2022 History SDOH Social Connections Get Together 5 [facility] Start: 06-29-2022 History SDOH Physical Activity DPW 6 [facility] Start: 06-30-2022 Alcohol Comment occasionally [facility] Do you belong to any clubs or organizations such as orthodox groups, unions, fraternal or athletic groups, or school groups? Yes [facility] Are you now , , , , never or living with a partner? [facility] How often to you hav e a drink containing alcohol? 2-4 times a month [facility] How many standard dr inks containing alcohol do you have on a typical day? 1 or 2 [facility] How often do you hav e 6 or more drinks on 1 occasion? Never [facility] Start: 08-02-2021 Adult Depression Screening Assessment 0 [facility] Do you feel stress - tense, restless, nervous, or anxious, or unable to sleep at night because your mind is troubled all the time - these days [OSQ] Not at all [facility] (I/We) worried wheth er (my/our) food would run out before (I/we) got money to buy more. Never true [facility] In the past 12 month s, was there a time when you were not able to pay the mortgage or rent on time? No [facility] Start: 10-20-2021 Gender identity Identifies as female gender (finding) [facility] Start: 10-20-2021 Sexual orientation Heterosexual (finding) [facility] Start: 12-03-2023 End: 09-26-2024 Alcoholic beverage intake Lifetime non-drinker (finding) [facility] Start: 03-11-2023 Alcohol Comment caffeine intake: 1-2 cups per day [facility] Start: 08-29-2009 End: 2024 Sex Female (finding) [facility] Sexual Orientation [facility] Medical Equipment Procedure Code Equipment Code Equipment Origin al Text Equipment Identifier Dates Cornea Tissue Pre-Loaded Dmek - [id number] Start: 03-17-2022 Gas Ispan Constellation Intraocular Vision System Sf6 125 - [id number] Start: 03-17-2022 Lens Iol 0d +21 Eloisa Uv Abs - [id number] Start: 03-17-2022 Cornea Tissue Pre-Loaded Dmek - [id number] Start: 04-14-2022 Gas Ispan Constellation Intraocular Vision System Sf6 125gm - [id number] Start: 04-14-2022 Lens Iol 0d +21. 5 Eloisa Uv Abs - [id number] Start: 04-14-2022 Head V40 Lfit 22 mm +3mm Offset Taper Cocr Femoral Primary Hip - [id number] Start: 03-17-2023 Stem Accolade Ii V40 132d 2 33mm Offset Purefix Titanium Plasma [place] 99mm - [id number] Start: 03-17-2023 Shell Trident Ii 46mm C Tritanium Acetabular 3 Screw Hole Cluster Sterile - [id number] Start: 03-17-2023 Liner Mdm 36mm C Cocr Acetabular 2 Mobility Modular Hip - [id number] Start: 03-17-2023 Estefany Adm X3 Ins Estefany Adm X3 Ins 42 - [id number] Start: 03-17-2023 Functional Status Date Assessment Result Facility 03-19-2023 Are you deaf, or do you have serious difficulty hearing No 03/19/2023 1:09 PM Mary Holley, BETSY No [facility] 03-19-2023 Are you blind, or do you have serious difficulty seeing, even when wearing glasses No 03/19/2023 1:09 PM Mary Holley RN No [facility] 03-19-2023 Do you have serious difficulty walking or climbing stairs No 03/19/2023 1:09 PM Mary Holley RN No [facility] 03-19-2023 Do you have difficul ty dressing or bathing No 03/19/2023 1:09 PM Mary Holley, BETSY No [facility] 03-19-2023 Because of a physica l, mental, or emotional condition, do you have difficulty doing errands alone such as visiting a physician's office or shopping No 03/19/2023 1:09 PM EDT Mary Weller RN No [facility] 12-25-2021 Functional Status N/A [facility] Mental Status Date Assessment Result Facility 03-19-2023 Because of a physica l, mental, or emotional condition, do you have serious difficulty concentrating, remembering, or making decisions No 03/19/2023 1:09 PM EDT Mary Weller RN No [facility] Clinical Notes 08-06-2021 to 02-21-2025 Note Date & Type Note Facility 02-21-2025 Note HNO ID: [id number] Author: CISCO SORTO RT(R) Service: ? Author Type: Technologist Type: Progress Notes Filed: 02/21/2025 08:16 Note Text: Radiology Service Progress Note PATIENT NAME: Gracie Jones DATE OF SERVICE: February 21, 2025 [...] female at . status: : No status: NO. PATIENT RELEVANT IMPLANT DATA REVIEWED: Yes PATIENT PRESENTS WITH AN IMPLANTABLE OR ATTACHED RELAYS DRAFTSPERSON: No RADIOLOGY DEPARTMENT: MR; Exam(s) Completed: Spine: Lumbar spine PERIPHERAL IV DATA: Not applicable SIGNED BY: RT Margo(R) February 21, 2025 8:16 AM [facility] 01-24-2025 Evaluation note Diagnosis Pre-op evaluation- Primary Preoperative examination, unspecified Stage 3 chronic kidney disease, unspecified whether stage 3a or 3b CKD (HCC) Pre-op evaluation- Primary Preoperative examination, unspecified Pain, unspecified Stage 3a chronic kidney disease (HCC) Elevated BP without diagnosis of hypertension PONV (postoperative nausea and vomiting) Nausea with vomiting Low back pain, unspecified back pain laterality, unspecified chronicity, unspecified whether sciatica present documented in this encounter [facility]09-08-2025 NoteHNO ID: [id number] Author: BETHANY GIPSON RT(R) Service: ? Author Type: Technologist Type: Progress Notes Filed: 01/23/2025 08:47 Note Text: Radiology Service Progress Note PATIENT NAME: Gracie Jones DATE OF SERVICE: January 23, 2025 TIME: 8:46 AM PATIENT IDENTITY VERIFICATION COMPLETED USING TWO [...] PATIENT PRESENTS WITH AN IMPLANTABLE OR ATTACHED RELAYS DRAFTSPERSON: No RADIOLOGY DEPARTMENT: General X-ray: Exam(s) Completed: Spine X-Ray(s): Lumbar AP/LAT PERIPHERAL IV DATA: Not applicable SIGNED BY: BRUNO Enamorado) January 23, 2025 8:46 [facility]09-08-2025 History of Present illness Narrative* Bethany Gipson RT(Linda) - 01/23/2025 8:46 AM EDT Radiology Service Progress Note PATIENT NAME: Gracie Jones DATE OF SERVICE: January 23, 2025 TIME: 8:46 AM PATIENT IDENTITY VERIFICATION COMPLETED USING TWO (2) IDENTIFIERS: Name and Date of confirmedby patient verbally. FALL SCREENING: Has the patient had 2 falls in the last year or 1 fall with injury or currently using an Ambulatory Assistive Device (Walker, Cane, Wheelchair, Crutches, etc.)? No PATIENT GENDER DATA: Assigned female at . status: : No status:N/A PATIENT RELEVANT IMPLANT DATA REVIEWED: Not Applicable PATIENT PRESENTS WITH AN IMPLANTABLE OR ATTACHED RELAYS DRAFTSPERSON: No RADIOLOGY DEPARTMENT: General X-ray: Exam(s) Completed: Spine X-Ray(s): Lumbar AP/LAT PERIPHERAL IV DATA: Not applicable SIGNED BY: BRUNO Enamorado) January 23, 2025 8:46 AM [facility] History of Present illness Narrative* Susie Maddox MD - 01/23/2025 8:30 AM EDT SUBJECTIVE: Ms. Jones a 74 year old female referred by Olive Martinez, JENNIFER presents with the complaint of bilateral lumbar, SI, and leg pain, focusing on bilateral upper lumbar pain today and describes as dull and intermittent. The pain is localized to the T12 to L3 region and does not radiate. 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 She denies any current pain, but reports that the pain can reach a severity of 9-10/10 during episodes, particularly when she is unable to sit down or take breaks. Gracie also has a history of right hip pain, which was previously treated with an injection in the right trochanteric bursa approximately one month ago. She reports that this injection provided significant relief, and she no longer experiences pain radiating to her knee. She also received an SI joint injection under US guidance, which further alleviated the hip pain. Gracie is not on any medications, including blood thinners, and has not tried physical therapy for her lumbar pain. She is active and goes to the gym regularly. She denies any relief from leaning forward or staying upright when experiencing middle back pain. Patient reports the date of onset of symptoms as 30 years ago and describes the location of the pain as lower lumbar. The pain is chronic, aching, and rated as 9 on a scale of 1-10, with radiation. PAIN RATIO: (back:leg): Back > Leg OTHER BACK PAIN SYMPTOMS: NIGHT PAIN: No PARESTHESIA: No POOR SLEEP: No BOWEL/BLADDER INCONTINENCE OR RETENTION: No ACTIVITY LIMITATIONS: ADLs PREVIOUS TREATMENTS LASTING SIX WEEKS IN THE LAST SIX MONTHS Right SI joint injection and R trochanteric bursa injections Active conservative therapy lasting 6 weeks in the last six months (see below) 1. Physical therapy: Yes Vilma Smalls 10/2024 6-8 sessions 2. Home exercise program after PT: yes 3. Occupational therapy: No 4. A physician supervised home exercise program (HEP): No 5. Blindstitch Machine Operator: No Passive conservative therapy lasting 6 weeks in the last six months (see below) 1. Medical devises: No 2. Acupuncture: Yes (right hip) 3. Tens unit: No 4. Prescription pain medication: No 5. 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 HISTORY OF TRAUMA/OVERUSE OF AREA: No REVIEW OF SYSTEMS: GENERAL: Negative for malaise, significant weight loss and fever HEENT: Negative for frequent or significant headaches NECK: Negative for lumps, goiter, pain and significant neck swelling RESPIRATORY: Negative for cough, hemoptysis, wheezing, COPD, dyspnea or shortness of breath CARDIOVASCULAR: Negative for chest pain, leg swelling, hypertension, CHF or palpitations GI: No nausea, vomiting, or diarrhea : No history of dysuria, frequency or incontinence FIELD LOGISTICS COORDINATOR: Negative for abnormal vaginal bleeding, abnormal vaginal discharge. . MUSCULOSKELETAL: See HPI SKIN: Negative for lesions, rash, and itching PSYCH: Negative for sleep disturbance, mood disorder and recent psychosocial stressors. HEMATOLOGY/LYMPHOLOGY Negative for prolonged bleeding, bruising easily or swollen nodes ENDOCRINE: Negative for cold or heat intolerance, polyuria, polydipsia and goiter PAST MEDICAL HISTORY Diagnosis Date Stage 3 chronic kidney disease (HCC) 12/09/2021 PAST MEDICAL HISTORY Diagnosis Date Stage 3 chronic kidney disease (HCC) 12/09/2021 PAST SURGICAL HISTORY Procedure Laterality Date SECTION HX x2 COLONOSCOPY SCREENING KERATOPLASTY ENDOTHELIAL Right 04/14/2022 KERATOPLASTY ENDOTHELIAL Left 03/17/2022 PAST SURGICAL HISTORY OF BLEPHAROPLASTY UPPER TOTAL HIP REPLACEMENT Right XR CERVICAL FUSION OR EXAMINATION: [id number]: Scoliosis: No Pelvic Tilt: No Leg Length discrepancy: Equal LATERAL: Cervical Lordosis: No Thoracic Kyphosis: No Lumbar Lordosis: No RANGE OF MOTION CERVICAL: Flexion: Not Limited Extension: Not Limited Rotation L: Not Limited Rotation R: Not Limited Side Bending R: Not Limited Side Bending L: Not Limited LUMBAR: Flexion: Not Limited Extension: Not Limited Rotation L: Not Limited Rotation R: Not Limited Side Bending R: Not Limited Side Bending L: Not Limited FINGER TO FLOOR DISTANCE: Toes and floor Gait: Normal REFLEXES R L Biceps (C6): 1-2+ 1-2+ Triceps (C7): 1-2+ 1-2+ Brachioradiolis (C6): 1-2+ 1-2+ Ankle (S1): 2+ 2+ Knee (L4): 2+ 2+ STRENGTH (0-5): R L Deltoid (AB:C5,6): 5 5 Biceps (Flex:C5,6): 5 5 Wrist Ext.(C6,7): 5 5 Interrosei (C8,T1): 5 5 PSOAS (L2,3): 5 5 Gluteus (L5,S1,2): 5 5 Quadriceps (L3,4): 5 5 EHL (L5): 5 5 Soleus (S1): 5 5 SLR: Seated - Right Negative, Left Negative Piriformis Stretch: Negative PRONE Fem Stretch: Negative RAINER TEST 1) Tenderness: Appropriate 2) Simulation/Axial Loading/ROT: Appropriate 3) Distraction: Seated SLR: Appropriate 4) Reqional Disturbances: Appropriate 5) Overreaction: Appropriate PHYSICAL EXAMINATION: GENERAL APPEARANCE: Well appearing, in no acute distress SKIN: Skin color, texture, turgor normal. No rashes or lesions. HEAD: Normocephalic. No masses, lesions, tenderness or abnormalities EYES: Conjunctivae/corneas clear. Pupils are equally round and reactive to light. Extraocular movements are intact. NECK: Neck supple, no adenopathy; thyroid symmetric, normal size, no bruits. LUNGS: Lungs clear to auscultation, No wheezing or rhonchi HEART: radial pulses intact b/l. RRR ABDOMEN: Abdomen soft, non-tender. Bowel sounds normal. No masses, organomegaly Back: +facet loading test on right lumbar spine, normal ROM + SI joint tenderness on R EXTREMITIES: No deformities, edema, or skin discoloration HIP: Tenderness on right FABERES: Positive PULSES: Normal lower extremity pulses. NEURO: Gait normal. Reflexes normal and symmetric. Sensation grossly intact. IMPRESSION: (M47.816) Lumbar facet arthropathy (primary encounter diagnosis) Comment: had xray done, report pending Plan: - + facet loading on RIGHT (M25.551) Pain in right hip, (M70.61) Greater trochanteric bursitis of right hip, (Z96.641) S/P hip replacement, right (M46.1) Sacroiliitis Rt SI injection under US last injection with ortho PA helping with pain Plan: Cont daily home stretching (M54.50) Midline low back pain without sciatica, unspecified chronicity upper lumbar midline pain PLAN: Discussed the above findings and potential options with the patient. She will fu with lumbar MRI and OPV. Attending Note: Salazar findings confirmed. Non smoker No DM. No hx of Ca. Patient examined. 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 Had Rt hip NISHA in 2022. Slight leg length discrepancy. Reported Rt hip girdle / SI pain radiating along lateral thigh -- mainly resolved after Rt SI injection /US. Pain in Rt hip girdel now described as a dull ache. Cannot identify a activity or position that will bring it on. Reports midline upper lumbar pain which she has also had for years - this pain occurs after sustained standing or activity and resolves if she rests her back -= she feels this pain occurs randomly - without a particular position or acitivity. She has + facet loading ON RIGHT (has concordant facet OA). She is mildly tender along her Rt SI and piriformis. No parathoracic myofascial pain at L 1-2 level of randomly severe occurrences of midline pain. She has recently been in PT and acupuncture ([facility]) - and felt this did not help. Suggest we review a lumbar MRI since she has had several attempts at PT and interventions but has some persisting radicular syndrome / Rt hip girdle pain. Discussed with the fellow and the patient. Plan as outlined. Susie Maddox MD [facility] NoteHNO ID: [id number] Author: SUSIE MADDOX MD Service: ? Author Type: Physician Type: Progress Notes Filed: 01/23/2025 13:37 Note Text: SUBJECTIVE: Ms. Jones a 74 year old female referred by Olive Martinez, PALyndaC presents with the complaint of bilateral lumbar, SI, and leg pain, focusing on bilateral upper lumbar pain today and describes as dull and intermittent. The pain is localized to the T12 to L3 region and does not radiate. 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 She denies any current pain, but reports that the pain can reach a severity of 9-10/10 during episodes, particularly when she is unable to sit down or take breaks. Gracie also has a history of right hip pain, which was previously treated with an injection in the right trochanteric bursa approximately one month ago. She reports that this injection provided significant relief, and she no longer experiences pain radiating to her knee. She also received an SI joint injection under US guidance, which further alleviated the hip pain. Gracie is not on any medications, including blood thinners, and has not tried physical therapy for her lumbar pain. She is active and goes to the gym regularly. She denies any relief from leaning forward or staying upright when experiencing middle back pain. Patient reports the date of onset of symptoms as 30 years ago and describes the location of the pain as lower lumbar. The pain is chronic, aching, and rated as 9 on a scale of 1-10, with radiation. PAIN RATIO: (back:leg): Back > Leg OTHER BACK PAIN SYMPTOMS: NIGHT PAIN: No PARESTHESIA: No POOR SLEEP: No BOWEL/BLADDER INCONTINENCE OR RETENTION: No ACTIVITY LIMITATIONS: ADLs PREVIOUS TREATMENTS LASTING SIX WEEKS IN THE LAST SIX MONTHS Right SI joint injection and R trochanteric bursa injections Active conservative therapy lasting 6 weeks in the last six months (see below) 1. Physical therapy: Yes Vilma Smalls 10/2024 6-8 sessions 2. Home exercise program after PT: yes 3. Occupational therapy: No 4. A physician supervised home exercise program (HEP): No 5. Blindstitch Machine Operator: No Passive conservative therapy lasting 6 weeks in the last six months (see below) 1. Medical devises: No 2. Acupuncture: Yes (right hip) 3. Tens unit: No 4. Prescription pain medication: No 5. 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 HISTORY OF TRAUMA/OVERUSE OF AREA: No REVIEW OF SYSTEMS: GENERAL: Negative for malaise, significant weight loss and fever HEENT: Negative for frequent or significant headaches NECK: Negative for lumps, goiter, pain and significant neck swelling RESPIRATORY: Negative for cough, hemoptysis, wheezing, COPD, dyspnea or shortness of breath CARDIOVASCULAR: Negative for chest pain, leg swelling, hypertension, CHF or palpitations GI: No nausea, vomiting, or diarrhea : No history of dysuria, frequency or incontinence FIELD LOGISTICS COORDINATOR: Negative for abnormal vaginal bleeding, abnormal vaginal discharge. . MUSCULOSKELETAL: See HPI SKIN: Negative for lesions, rash, and itching PSYCH: Negative for sleep disturbance, mood disorder and recent psychosocial stressors. HEMATOLOGY/LYMPHOLOGY Negative for prolonged bleeding, bruising easily or swollen nodes ENDOCRINE: Negative for cold or heat intolerance, polyuria, polydipsia and goiter PAST MEDICAL HISTORY Diagnosis Date Stage 3 chronic kidney disease (HCC) 12/09/2021 PAST MEDICAL HISTORY Diagnosis Date Stage 3 chronic kidney disease (HCC) 12/09/2021 PAST SURGICAL HISTORY Procedure Laterality Date SECTION HX x2 COLONOSCOPY SCREENING KERATOPLASTY ENDOTHELIAL Right 04/14/2022 KERATOPLASTY ENDOTHELIAL Left 03/17/2022 PAST SURGICAL HISTORY OF BLEPHAROPLASTY UPPER TOTAL HIP REPLACEMENT Right XR CERVICAL FUSION OR EXAMINATION: [id number]: Scoliosis: No Pelvic Tilt: No Leg Length discrepancy: Equal LATERAL: Cervical Lordosis: No Thoracic Kyphosis: No Lumbar Lordosis: No RANGE OF MOTION CERVICAL: Flexion: Not Limited Extension: Not Limited Rotation L: Not Limited Rotation R: Not Limited Side Bending R: Not Limited Side Bending L: Not Limited LUMBAR: Flexion: Not Limited Extension: Not Limited Rotation L: Not Limited Rotation R: Not Limited Side Bending R: Not Limited Side Bending L: Not Limited FINGER TO FLOOR DISTANCE: Toes and floor Gait: Normal REFLEXES R L Biceps (C6): 1-2+ 1-2+ Triceps (C7): 1-2+ 1-2+ Brachioradiolis (C6): 1-2+ 1-2+ Ankle (S1): 2+ 2+ Knee (L4): 2+ 2+ STRENGTH (0-5): R L Deltoid (AB:C5,6): 5 5 Biceps (Flex:C5,6): 5 5 Wrist Ext.(C6,7): 5 5 Interrosei (C8,T1): 5 5 PSOAS (L2,3): 5 5 Gluteus (L5,S1,2): 5 5 Quadriceps (L3,4): 5 5 EHL (L5): 5 5 Soleus (S1): 5 5 SLR: Seated - Right Negative, Left Negative Piriformis Stretch: Negative PRONE F (more content not included)...[facility]09-08-2025 Evaluation note* Diagnosis Pre-op evaluation- Primary Preoperative examination, unspecified Stage 3 chronic kidney disease, unspecified whether stage 3a or 3b CKD (HCC) Pre-op evaluation- Primary Preoperative examination, unspecified Pain, unspecified Stage 3a chronic kidney disease (HCC) Elevated BP without diagnosis of hypertension PONV (postoperative nausea and vomiting) Nausea with vomiting Lumbar facet arthropathy- Primary Lumbosacral spondylosis without myelopathy Pain in right hip Pain in joint, pelvic region and thigh Greater trochanteric bursitis of right hip Enthesopathy of hip region Sacroiliitis Sacroiliitis, not elsewhere classified Midline low back pain without sciatica, unspecified chronicity S/P hip replacement, right documented in this encounter [facility]09-07-2025 Hospital Discharge instructions Patient Education 01/22/2025 14:07:52 Stomatitis, Wvri-qn-Ukeu Stomatitis Stomatitis is a condition that causes irritation and swelling (inflammation) in the mouth. It can affect all or part of the inside of the mouth. The condition often affects the cheek, teeth, gums, lips, and tongue. It can also affect the tissues that produce mucus in the mouth (mucosa). Pain from stomatitis can make it hard for you to eat or drink. Very bad cases of this condition canlead to: Not getting enough fluid in your body (dehydration). Poor nutrition. What are the causes? Infections caused by germs (viruses, bacteria, or fungi). Examples include cold sores, shingles, and oral thrush. Cancer treatment, including chemotherapy and radiation therapy. Not getting enough of certain vitamins (vitamin deficiency). Not getting proper nutrition. Injury to the mouth. This can be from: ?Dentures or braces that do not fit well. ?Biting your tongue or cheek. ?Burning your mouth. ?Having sharp or broken teeth. Gum disease. Using tobacco, especially chewing tobacco. Allergies to foods, medicines, or substances that are used in your mouth. Certain medicines. In some cases, the cause may not be known. What increases the risk? Not taking good care of your mouth and teeth (poor oral hygiene). Having poor nutrition. Having any condition that weakens the body's defense system (immune system). Being treated for cancer. Using tobacco products. Having any condition that causes a dry mouth. Being under a lot of physical or emotional stress. What are the signs or symptoms? The most common symptoms of this condition are pain, swelling, and redness inside your mouth. The pain may feel like burning or stinging. It may get worse from eating or drinking. Other symptoms may include: Painful, shallow sores (ulcers) in the mouth. White patches in the mouth. Blisters in the mouth. Bleeding gums. Bad breath. Bad taste in the mouth. Fever. How is this treated? Treatment depends on the cause. Treatment may include: Icyk-xqc-mrrulcz pain medicines or medicines to coat or numb your mouth. Gel, cream, or spray to numb the area (topical anesthetic) if you have very bad pain. Medicines to treat an infection. Vitamins. Mouth rinses to reduce swelling (steroids). You may also need to stop or change any medicines that might be causing the condition. Follow these instructions at home: Medicines Take qpio-woz-ztgjjft and prescription medicines only as told by your doctor. If you were prescribed an antibiotic medicine, take it as told by your doctor. Do not stop taking it even if you start to feel better. Do not use products that have benzocaine in them to treat a child younger than 2 years. This includes gels for teething or mouth pain. Ask your doctor if you should avoid driving or using machines while you are taking your medicine. Eating and drinking Eat a balanced diet. Do not eat: ?Spicy foods. ?[place], such as oranges. ?Foods that have sharp edges, such as chips. Do not eat any foods that you think may be causing this condition. Do not drink alcohol. Drink enough fluid to keep your pee (urine) pale yellow. This will keep you hydrated. Lifestyle Take good care of your mouth and teeth: ?Gently brush your teeth with a soft toothbrush. Do this 2 times each day. ?Floss your teeth every day. ?Have your teeth cleaned regularly. Do this as told by your dentist. If you have dentures, make sure that they fit the way that they should. Clean them often as told byyour dentist. Do not smoke or use any products that contain nicotine or tobacco. If you need help quitting, ask your doctor. Find ways to lower your stress. Try yoga or meditation. Ask your doctor for other ideas. General instructions Rinse your mouth often with salt water. To make salt water, dissolve 1 tsp (3 6 g) of salt in 1 cup(237 mL) of warm water. Keep all follow-up visits. Contact a doctor if: Your symptoms get worse. You have new symptoms, like: ?A rash. ?New symptoms that do not involve your mouth area. Your symptoms last longer than 3 weeks. Your symptoms go away and then come back. You feel very tired (fatigued). You feel weaker. You do not want to eat as much as normal (loss of appetite). You feel like you may vomit (nauseous). Get help right away if: You have a fever. You are not able to eat or drink. You have a lot of bleeding in your mouth. Summary Stomatitis is a condition that causes irritation and swelling in the mouth. Pain from stomatitis can make it hard for you to eat or drink. Very bad cases of this condition canlead to not getting enough fluid in your body or poor nutrition. Take medicines only as told by your doctor. Follow instructions from your doctor on diet and lifestyle changes to help manage your symptoms. This information is not intended to replace advice given to you by your health care provider. Make sure you discuss any questions you have with your health care provider. Document Revised: 02/13/2022 Document Reviewed: 02/13/2022 [employer] Patient Education 2023 [employer]. Follow Up Care 01/22/2025 13:30:40 With:LYNDSAY DUNBAR CNP Address: [address] [place] [id number] [phone] When: Unknown [facility] 09-07-2025 NotePatient Education ENT Stomatitis Stomatitis is a condition that causes irritation and swelling (inflammation) in the mouth. It can affect all or part of the inside of the mouth. The condition often affects the cheek, teeth, gums, lips, and tongue. It can also affect the tissues that produce mucus in the mouth (mucosa). Pain from stomatitis can make it hard for you to eat or drink. Very bad cases of this condition canlead to: ??? Not getting enough fluid in your body (dehydration). ??? Poor nutrition. What are the causes? Infections caused by germs (viruses, bacteria, or fungi). Examples include cold sores, shingles, and oral thrush. ??? Cancer treatment, including chemotherapy and radiation therapy. ??? Not getting enough of certain vitamins (vitamin deficiency). ??? Not getting proper nutrition. ??? Injury to the mouth. This can be from: ? Dentures or braces that do not fit well. ? Biting your tongue or cheek. ? Burning your mouth. ? Having sharp or broken teeth. ??? Gum disease. ??? Using tobacco, especially chewing tobacco. ??? Allergies to foods, medicines, or substances that are used in your mouth. ??? Certain medicines. In some cases, the cause may not be known. What increases the risk? Not taking good care of your mouth and teeth (poor oral hygiene). ??? Having poor nutrition. ??? Having any condition that weakens the body's defense system (immune system). ??? Being treated for cancer. ??? Using tobacco products. ??? Having any condition that causes a dry mouth. ??? Being under a lot of physical or emotional stress. What are the signs or symptoms? The most common symptoms of this condition are pain, swelling, and redness inside your mouth. The pain may feel like burning or stinging. It may get worse from eating or drinking. Other symptoms may include: ??? Painful, shallow sores (ulcers) in the mouth. ??? White patches in the mouth. ??? Blisters in the mouth. ??? Bleeding gums. ??? Bad breath. ??? Bad taste in the mouth. ??? Fever. How is this treated? Treatment depends on the cause. Treatment may include: ??? Yjwp-xwe-eukjrgy pain medicines or medicines to coat or numb your mouth. ??? Gel, cream, or spray to numb the area (topical anesthetic) if you have very bad pain. ??? Medicines to treat an infection. ??? Vitamins. ??? Mouth rinses to reduce swelling (steroids). You may also need to stop or change any medicines that might be causing the condition. Follow these instructions at home: Medicines ??? Take ffps-uxx-waenubi and prescription medicines only as told by your doctor. ??? If you were prescribed an antibiotic medicine, take it as told by your doctor. Do not stop taking it even if you start to feel better. ??? Do not use products that have benzocaine in them to treat a child younger than 2 years. This includes gels for teething or mouth pain. ??? Ask your doctor if you should avoid driving or using machines while you are taking your medicine. Eating and drinking ??? Eat a balanced diet. ??? Do not eat: ? Spicy foods. ? [place], such as oranges. ? Foods that have sharp edges, such as chips. ??? Do not eat any foods that you think may be causing this condition. ??? Do not drink alcohol. ??? Drink enough fluid to keep your pee (urine) pale yellow. This will keep you hydrated. Lifestyle ??? Take good care of your mouth and teeth: ? Gently brush your teeth with a soft toothbrush. Do this 2 times each day. ? Floss your teeth every day. ? Have your teeth cleaned regularly. Do this as told by your dentist. ??? If you have dentures, make sure that they fit the way that they should. Clean them often as told by your dentist. ??? Do not smoke or use any products that contain nicotine or tobacco. If you need help quitting, ask your doctor. ??? Find ways to lower your stress. Try yoga or meditation. Ask your doctor for other ideas. General instructions ??? Rinse your mouth often with salt water. To make salt water, dissolve ??1 tsp (3?6 g) of salt in1 cup (237 mL) of warm water. ??? Keep all follow-up visits. Contact a doctor if: ??? Your symptoms get worse. ??? You have new symptoms, like: ? A rash. ? New symptoms that do not involve your mouth area. ??? Your symptoms last longer than 3 weeks. ??? Your symptoms go away and then come back. ??? You feel very tired (fatigued). ??? You feel weaker. ??? You do not want to eat as much as normal (loss of appetite). ??? You feel like you may vomit (nauseous). Get help right away if: ??? You have a fever. ??? You are not able to eat or drink. ??? You have a lot of bleeding in your mouth. Summary ??? Stomatitis is a condition that causes irritation and swelling in the mouth. ??? Pain from stomatitis can make it hard for you to eat or drink. Very bad cases of this conditioncan lead to not getting enough f (more content not included)...[facility]09-03-2025 Telephone encounter Note* Telephone Encounter - Zeke Antoine PA-C - 01/18/2025 5:18 PM EDT Order placed for x-ray of the lumbar spine. Zeke Antoine PA-C January 18, 2025 [facility]09-03-2025 Miscellaneous Notes* Telephone Encounter - Zeke Antoine PA-C - 01/18/2025 5:18 PM EDT Order placed for x-ray of the lumbar spine. Zeke Antoine PA-C January 18, 2025 * Telephone Encounter - Kalina Britt LPN - 01/18/2025 5:11 PM EDT Spoke with pt, scheduled for consult on 01/23/2025 (PB). Pt has not had any recent Lumbar imaging, pt instructed to go to any [facility] Radiology dept prior to scheduled appt and have Lumbar Xray completed. Per staff message: Sent: 01/16/2025 5:10 PM EDT To: Susie Maddox MD Subject: patient referral Good afternoon, I was hoping you could help me with this patient. She is having primarily SI joint irritation but also some sciatic nerve radiculopathy. She had a cortisone injection under ultrasound guidance at theSI joint recently a few weeks ago and had complete relief of her symptoms and then gradual return now to the point where is quite bothersome to her again. Also having sciatic nerve radicular symptomsas well. Sciatic symptoms were still present after the SI joint injection. Thanks. Olive Amaya PA-C [facility] Telephone encounter Note * Telephone Encounter - Kalina Britt LPN - 01/18/2025 5:11 PM EDT Spoke with pt, scheduled for consult on 01/23/2025 (LOLLY). Pt has not had any recent Lumbar imaging, pt instructed to go to any [facility] Radiology dept prior to scheduled appt and have Lumbar Xray completed. Per staff message: Sent: 01/16/2025 5:10 PM EDT To: Susie Maddox MD Subject: patient referral Good afternoon, I was hoping you could help me with this patient. She is having primarily SI joint irritation but also some sciatic nerve radiculopathy. She had a cortisone injection under ultrasound guidance at theSI joint recently a few weeks ago and had complete relief of her symptoms and then gradual return now to the point where is quite bothersome to her again. Also having sciatic nerve radicular symptomsas well. Sciatic symptoms were still present after the SI joint injection. Thanks. Olive Amaya PA-C [facility]09-01-2025 Evaluation note* Diagnosis Pre-op evaluation- Primary Preoperative examination, unspecified Stage 3 chronic kidney disease, unspecified whether stage 3a or 3b CKD (HCC) Pre-op evaluation- Primary Preoperative examination, unspecified Pain, unspecified Stage 3a chronic kidney disease (HCC) Elevated BP without diagnosis of hypertension PONV (postoperative nausea and vomiting) Nausea with vomiting Sacroiliitis- Primary Sacroiliitis, not elsewhere classified Right sciatic nerve pain S/P hip replacement, right documented in this encounter [facility]08-27-2025 Instructions* Patient Instructions* Olive Amaya PA-C - 01/11/2025 12:50 PM EDT - Expect a call from Dr. Maddox s office (pain management) to schedule your next appointment. - Keep a pain diary: note the exact location, intensity, and any leg symptoms at least once a week and anytime you notice a change. - Avoid bending over at the waist to the affected side(right); when lifting or reaching, bend your knees and hips into a squat rather than hinging at your back. [facility] History of Present illness Narrative* AnantoliviaOlive PA-C - 01/11/2025 12:01 PM EDT Recording using [employer] software for draft documentation of the visit was discussed with the patient/authorized hobbies and crafts sales representative; all questions welcomed and answered. Patient/authorized hobbies and crafts sales representative agreed to proceed Chief complaint: The patient is a 74-year-old female with degenerative arthritis of the spine, presenting for evaluation of persistent sacroiliac joint and hip pain following corticosteroid injection. HISTORY: Gracie is a 74 year old female. Hip and Back Pain: - Pain localized to the back and hip area. - Recent SI injection provided instant relief initially, but pain has returned. - Current pain described as an ache, rated 1-2/10. - Pain is less intense than before the injection, with no shooting pain down to the knee. - Gracie reports occasional sharp pain in the hip area. - Gracie experiences a sensation of the leg feeling long and drags the foot when tired. - Gracie continues to perform physical therapy exercises. - Gracie denies pain when bending forward or backward, but reports mild pain when tilting to the right. - No pain when walking on toes or heels, but Gracie reports feeling pain down the side of the leg. Patient has a past medical history, medications and allergies were reviewed. No other musculoskeletal complaints ROS : Musculoskeletal: (+) right buttock ache, (+) right buttock tenderness, (+) right buttock pain with right lateral bending, (-) low back pain Neurological: (+) shooting pain radiating to right knee, (+) foot drag when fatigued PAST MEDICAL HISTORY Diagnosis Date Stage 3 chronic kidney disease (HCC) 12/09/2021 PAST SURGICAL HISTORY Procedure Laterality Date SECTION HX x2 COLONOSCOPY SCREENING KERATOPLASTY ENDOTHELIAL Right 04/14/2022 KERATOPLASTY ENDOTHELIAL Left 03/17/2022 PAST SURGICAL HISTORY OF BLEPHAROPLASTY UPPER TOTAL HIP REPLACEMENT Right XR CERVICAL FUSION OR Medications reviewed. ALLERGIES No Known Allergies SOCIAL HISTORY[1] EXAMINATION: On physical exam today, - Musculoskeletal: - Hip: Good ROM; mild tenderness to palpation over lateral aspect. - SI Joint: Significant tenderness to palpation. - Lumbar Spine: No pain with flexion or extension; mild pain with right lateral flexion; no pain with left lateral flexion or rotation. - Neurological: Able to walk on toes and heels without difficulty; no radicular pain elicited during examination. Motor and sensory are otherwise intact today. RADIOGRAPHS: Personally reviewed by myself demonstrating Imaging: - X-ray: Leg length difference within approximately 1/8 inch, no significant discrepancy. Hip replacement components in satisfactory position with no evidence of wear or loosening. IMPRESSION: Encounter Diagnosis ICD-10-CM 1. Sacroiliitis M46.1 2. Right sciatic nerve pain M54.31 3. S/P hip replacement, right Z96.641 Plan: 1. Sacroiliitis (M46.1) 2. Right sciatic nerve pain (M54.31) - SI joint injection provided approximately 90% initial relief, with current pain at 50% of baseline; persistent ache and intermittent radicular symptoms noted. - Refer to pain management (Dr. Alonzo Maddox) for further evaluation and management, including assessment for possible ablation or additional SI joint interventions. - Advised patient to continue tracking pain and symptoms, noting any changes. - Discussed importance of avoiding lateral bending during gardening activities; encouraged squatting technique as preferable to bending for back health. 3. S/P hip replacement, right (Z96.641) Olive Amaya PA-C December 12:05 PM [1] Social History Tobacco Use Smoking status: Former Current packs/day: 0.00 Average packs/day: 0.2 packs/day for 1 year (0.2 ttl pk-yrs) Types: Cigarettes Start date: 1972 Quit date: 1973 Years since quittin.7 Smokeless tobacco: Never Substance Use Topics Alcohol use: Yes Comment: occasionally Drug use: Not Currently Comment: denies tx for drug/alcohol abuse in the past. documented in this encounter[facility] NoteHNO ID: [id number] Author: OLIVE AMAYA PA-C Service: ? Author Type: Physician Assembler [employer] Type: Progress Notes Filed: 01/16/2025 17:10 Note Text: Recording using [employer] software for draft documentation of the visit was discussed with the patient/authorized hobbies and crafts sales representative; all questions welcomed and answered. Patient/authorized hobbies and crafts sales representative agreed to proceed Chief complaint: The patient is a 74-year-old female with degenerative arthritis of the spine, presenting for evaluation of persistent sacroiliac joint and hip pain following corticosteroid injection. HISTORY: Gracie is a 74 year old female. Hip and Back Pain: - Pain localized to the back and hip area. - Recent SI injection provided instant relief initially, but pain has returned. - Current pain described as an ache, rated 1-2/10. - Pain is less intense than before the injection, with no shooting pain down to the knee. - Gracie reports occasional sharp pain in the hip area. - Gracie experiences a sensation of the leg feeling long and drags the foot when tired. - Gracie continues to perform physical therapy exercises. - Gracie denies pain when bending forward or backward, but reports mild pain when tilting to the right. - No pain when walking on toes or heels, but Gracie reports feeling pain down the side of the leg. Patient has a past medical history, medications and allergies were reviewed. No other musculoskeletal complaints ROS : Musculoskeletal: (+) right buttock ache, (+) right buttock tenderness, (+) right buttock pain with right lateral bending, (-) low back pain Neurological: (+) shooting pain radiating to right knee, (+) foot drag when fatigued PAST MEDICAL HISTORY Diagnosis Date Stage 3 chronic kidney disease (HCC) 12/09/2021 PAST SURGICAL HISTORY Procedure Laterality Date SECTION HX x2 COLONOSCOPY SCREENING KERATOPLASTY ENDOTHELIAL Right 04/14/2022 KERATOPLASTY ENDOTHELIAL Left 03/17/2022 PAST SURGICAL HISTORY OF BLEPHAROPLASTY UPPER TOTAL HIP REPLACEMENT Right XR CERVICAL FUSION OR Medications reviewed. ALLERGIES No Known Allergies SOCIAL HISTORY[1] EXAMINATION: On physical exam today, - Musculoskeletal: - Hip: Good ROM; mild tenderness to palpation over lateral aspect. - SI Joint: Significant tenderness to palpation. - Lumbar Spine: No pain with flexion or extension; mild pain with right lateral flexion; no pain with left lateral flexion or rotation. - Neurological: Able to walk on toes and heels without difficulty; no radicular pain elicited during examination. Motor and sensory are otherwise intact today. RADIOGRAPHS: Personally reviewed by myself demonstrating Imaging: - X-ray: Leg length difference within approximately 1/8 inch, no significant discrepancy. Hip replacement components in satisfactory position with no evidence of wear or loosening. IMPRESSION: Encounter Diagnosis ICD-10-CM 1. Sacroiliitis M46.1 2. Right sciatic nerve pain M54.31 3. S/P hip replacement, right Z96.641 Plan: 1. Sacroiliitis (M46.1) 2. Right sciatic nerve pain (M54.31) - SI joint injection provided approximately 90% initial relief, with current pain at 50% of baseline; persistent ache and intermittent radicular symptoms noted. - Refer to pain management (Dr. Alonzo Maddox) for further evaluation and management, including assessment for possible ablation or additional SI joint interventions. - Advised patient to continue tracking pain and symptoms, noting any changes. - Discussed importance of avoiding lateral bending during gardening activities; encouraged squatting technique as preferable to bending for back health. 3. S/P hip replacement, right (Z96.641) Olive Amaya PA-C December 12:05 PM [1] Social History Tobacco Use Smoking status: Former Current packs/day: 0.00 Average packs/day: 0.2 packs/day for 1 year (0.2 ttl pk-yrs) Types: Cigarettes Start date: 1972 Quit date: 1973 Years since quittin.7 Smokeless tobacco: Never Substance Use Topics Alcohol use: Yes Comment: occasionally Drug use: Not Currently Comment: denies tx for drug/alcohol abuse in the past.[facility] 12-29-2024 Instructions* Patient Instructions* Shaneka Clark MD - 12/29/2024 3:52 PM EDT Please document the percentage of pain relief 1 hour after the injection, 6 hours after the injection, 12 hours after the injection, 24 hours after the injection, daily for the following week and then once weekly thereafter. Complete this chart and bring it with you to your follow-up orthopedic ap pointment. Time after the Injection Percentage of Pain Relief (0% = no pain relief; 100% = complete pain relief) 1 hr after 6 hrs after 12 hrs after 24 hrs after Day 2 Day 3 Day 4 Day 5 Day 6 Day 7 1 week after 2 weeks after 3 weeks after 4 weeks after 5 weeks after 6 weeks after Risks, benefits, and indications for diagnostic/therapeutic corticosteroid injections discussed. Risks include, but are not limited to: -Increase in blood sugar if the patient has a diagnosis of diabetes. Moreover, we discussed that the patient is not eligible for a steroid injection today if their A1c is >/=8.0 or if they report large daily swings in blood sugar that this provider deems unsafe for injection. If this is the case, they will need to follow up with their PCP or referring provider after this appointment and may return for an injection once their blood sugar is under better control and A1c is <8.0. -Risk of cosmetic changes to the skin, like lightening of the skin or dimpling of the skin over theinjection site - a known side effect of steroid injections. -Risk of a steroid flare, which is an immune response to the steroid that can cause symptoms such as facial flushing and worsening pain in the area of the injection. These symptoms may last 1-2 days and generally resolve without termite renewal inspector issues. -Risk of allergic reactions to the lidocaine or steroid can occur. If you have a known allergy to lidocaine or any steroid, please notify your doctor immediately. -Risk of bleeding and infection anytime we break the skin with a needle. Signs of infection are redness, warmth, swelling, worsening pain in the area of the injection, sometimes fevers and chills. Ifthe patient has any of these symptoms, they should seek medical care right away, either with us or the emergency room. You agreed to proceed with today's procedure after our detailed discussion in the presence of a secondary democrat regarding the risks, benefits, and alternatives of this treatment option. Please see below for additional information regarding today's injection. Post Steroid Injection Instructions: You received a steroid injection today. Please keep any physical therapy appointments and schedule a follow-up appointment as recommended. Benefits: Injections help with PAIN and allow you to better participate in daily activities and exercise/therapy. Injections do NOT cause healing of arthritis or injuries. As pain is better controlled, this will reduce the need to use anti-inflammatories by mouth and/or if you are not able to take an anti- inflammatory due to other reasons (you have been advised to avoid or they are contra-indicated). Activity recommendations: For the first 24 hours after the injection, keep the area clean and dry. It is okay to shower but no soaking in a tub or swimming. Schedule the injection when you have 1-2 days to rest afterwards. Ideally, no strenuous or vigorous activities (such as running or heavy lifting) for 48 hours after the injection. Therefore, plan ahead to have any exercise or errands completed before the injection so you can relax afterwards. After the first week, you can gradually resume normal activities. If you do experience a significant decrease in pain, be careful not to do too muchtoo soon. The salazar is gradual resumption of activities. What to expect: The injection contains local anesthetic (which numbs the joint) and a steroid (which decreases inflammation). You may have pain relief within hours (sometimes immediate) due to the lidocaine. The steroid can take a few days, up to a few weeks, to reach the full effect, so please be patient! The numbing medicine you received will wear off in 4-6 hours. It is also possible to have a slight increase in symptoms over the first few days. In order to prevent that, please take some anti-inflammatory (prescription strength, or Ibuprofen, or naprosyn) for the next three to five days. You may also need to ice the injected area at LEAST three times a day as instructed below. How long will an injection last? The length of response to an injection is variable. Patients have experienced relief anywhere from a few weeks to a few years. The injection will decrease the inflammation and the pain will return if/when the inflammation returns. When can I repeat an injection? While corticosteroid injections can be safely repeated every 3-4 months, the goal is to wait as long as possible to get another injection (if ever). If the injection benefits do not last at least 3 months, your doctor may recommend not continuing corticosteroid injections. Side effects: - There is a risk of bleeding and infection with any injection (including vaccinations). Precautions are taken to reduce this risk greatly. - If you have diabetes, the steroid component may raise your blood sugars significantly. Your doctor may postpone or recommend other therapies based on your blood sugar control. - Allergic reactions to the lidocaine or steroid can occur. If you have a known allergy to lidocaine or any steroid, please notify your doctor. PLEASE CALL YOUR DOCTOR OR PROCEED TO EMERGENCY ROOM IF: - You develop fevers/chills, redness or warmth at area of injection - You develop rash, difficulty breathing - You have significant worsening of your pain that is not controlled with the above suggestions ICING INSTRUCTIONS For an ice bag, apply for 15-20 minutes at least three times a day, more if needed. Ice in a Ziplog/plastic bag or even a bag of frozen peas/corn will work (and is reusable). For ice massage, fill an empty paper or styrofoam cup nearly full with water, place them in the freezer and let them freeze completely. Tear the top off of the cup leaving the bottom part of the cup intact so you can hold onto it. Rub the ice over the affected area for about [address] to do this is in the shower or the bath (with affected area out of the water) for the contrast ofhot water, but it can be done outside of the shower. MEDICATIONS Always read package inserts when taking over the counter medications. Caution when combining over the counter medications with prescription medications. If questions arise, please check with the pharmacist or another health care provider. Advise taking the lowest effective dose for shortest amount of time. Therefore, start with lowest dose and stop when pain free. Acetaminophen (Tylenol) Do not take this if you have liver problems or have been advised to not take Tylenol in the past. Be careful when combining with other pain relievers as several pain relievers have acetaminophen inthem. Typical dosing: - 325mg to 650mg every 4-6 hours or 1,000mg every 6 hours - Do not take more than three 325mg or two 500mg tablets in a single dose - Do not take more than 3,000mg total in 24 hours unless directed by your provider NSAIDs/Non-steroidal Anti-inflammatories (ibuprofen/Advil/Motrin, naproxen/Aleve) - Do not take if you are on any type of blood thinners (Coumadin, Eliquis, Xarelto for example) - Do not take these medications if you are taking another anti-inflammatory (such as Celebrex, Naprosyn, Relafen, Voltaren, Mobic, Anaprox, etc). - Do not take if you have a history of bleeding ulcers in your stomach or history of kidney disease. If this should start to upset your stomach, stop taking it. - Should you have any questions, you may want to ask your pharmacist or give our office a call. Instead of these over the counter medications, you may be prescribed an anti-inflammatory by your physician. Typical dosing: - Naproxen (Aleve) - 220mg pills (may take 220mg to 500mg per dose), up to 2 times a day, with food, for shortest duration needed, then on as needed basis. Do not take more than 1,000mg total in 24 hours unless directed by your provider. -OR- - Ibuprofen (Advil, Motrin) - 200mg pills (may take 200mg to 800mg per dose), up to 4 times a day, with food, for shortest duration needed, then on as needed basis. Do not take more than 2,400mg total in 24 hours unless directed by your provider. Do not COMBINE different NSAIDs - choose one or another. documented in this encounter[facility] NoteHNO ID: [id number] Author: SHANEKA CLARK MD Service: ? Author Type: Physician Type: Progress Notes Filed: 12/29/2024 17:32 Note Text: Gracie Jones is here today at request of Olive Amaya PA-C specifically for an injection for the chief complaint listed below. Correspondence will be shared today via the [employer] electronic health record or through regular mail, where applicable. CHIEF COMPLAINT: Gracie Jones is a 74 year old female who presents today for an injection of the R SI joint. Previous notes and images reviewed pertinent to this complaint. ROS: Constitutional: Any recent fevers or recent infections? No Integumentary: Any recent skin changes or rashes over the area to be injected? No Neurologic: Any numbness or tingling in the area to be injected? No Endocrine: Any diagnosis of diabetes? No Nephrologic: Any diagnosis of kidney disease? No ALLERGIES: ALLERGIES No Known Allergies PAST MEDICAL HISTORY: PAST MEDICAL HISTORY Diagnosis Date Stage 3 chronic kidney disease (HCC) 12/09/2021 EXAM: No signs of infection overlying the injection site. IMAGING: A [employer]JetSuite-X-BOLT Orth[employer]edic[employer] ultrasound laptop unit with a variable frequency (5-2 MHz) curvilinear transducer was used to evaluate and inject the R SI joint. LABS: Hemoglobin A1C (%) Date Value 01/07/2023 5.4 Creatinine Date Value Ref Range Status 03/19/2023 0.92 0.58 - 0.96 mg/dL Final 03/18/2023 0.98 (H) 0.58 - 0.96 mg/dL Final 01/07/2023 0.92 0.58 - 0.96 mg/dL Final No results found for: GFR Risks, benefits, and indications for diagnostic/therapeutic corticosteroid injections discussed. Risks include, but are not limited to: -Increase in blood sugar if the patient has a diagnosis of diabetes. Moreover, we discussed that the patient is not eligible for a steroid injection today if their A1c is >/=8.0 or if they report large daily swings in blood sugar that this provider deems unsafe for injection. If this is the case, they will need to follow up with their PCP or referring provider after this appointment and may return for an injection once their blood sugar is under better control and A1c is <8.0. -Risk of cosmetic changes to the skin, like lightening of the skin or dimpling of the skin over the injection site - a known side effect of steroid injections. -Risk of a steroid flare, which is an immune response to the steroid that can cause symptoms such as facial flushing and worsening pain in the area of the injection. These symptoms may last 1-2 days and generally resolve without termite renewal inspector issues. -Risk of allergic reactions to the lidocaine or steroid can occur. If you have a known allergy to lidocaine or any steroid, please notify your doctor immediately. -Risk of bleeding and infection anytime we break the skin with a needle. Signs of infection are redness, warmth, swelling, worsening pain in the area of the injection, sometimes fevers and chills. If the patient has any of these symptoms, they should seek medical care right away, either with us or the emergency room. After discussing the risks and benefits discussed above, the patient made an informed decision in the presence of a second democrat (Bernie Baum) to proceed with the injection. Injection performed as detailed in the procedure note below. CLINICAL IMPRESSION / ASSESSMENT: (M46.1) Sacroiliitis (primary encounter diagnosis) PLAN: Large Joint Arthro/Inj (R SI joint) 12/29/2024 [...] these instructions. Informed Consent Consent Obtained: Verbal Kabetogama Protocol A moment to CARE was completed. [...] The post-procedure POC has been communicated to (more content not included)... [facility]08-14-2025 History of Present illness Narrative* Shaneka Clark MD - 12/29/2024 3:51 PM EDTAssociated Order(s): Large Joint Arthro/Inj Post-Procedure Diagnose(s): Sacroiliitis Gracie Jones is here today at request of Olive Amaya PA-C specifically for an injection for the chief complaint listed below. Correspondence will be shared today via the [facility] electronic health record or through regular mail, where applicable. CHIEF COMPLAINT: Gracie Jones is a 74 year old female who presents today for an injection of the R SI joint. Previous notes and images reviewed pertinent to this complaint. ROS: Constitutional: Any recent fevers or recent infections? No Integumentary: Any recent skin changes or rashes over the area to be injected? No Neurologic: Any numbness or tingling in the area to be injected? No Endocrine: Any diagnosis of diabetes? No Nephrologic: Any diagnosis of kidney disease? No ALLERGIES: ALLERGIES No Known Allergies PAST MEDICAL HISTORY: PAST MEDICAL HISTORY Diagnosis Date Stage 3 chronic kidney disease (HCC) 12/09/2021 EXAM: No signs of infection overlying the injection site. IMAGING: A SonJetSuite-X-BOLT Orthapaedicso ultrasound laptop unit with a variable frequency (5- 2 MHz) curvilinear transducer was used to evaluate and inject the R SI joint. LABS: Hemoglobin A1C (%) Date Value 01/07/2023 5.4 Creatinine Date Value Ref Range Status 03/19/2023 0.92 0.58 - 0.96 mg/dL Final 03/18/2023 0.98 (H) 0.58 - 0.96 mg/dL Final 01/07/2023 0.92 0.58 - 0.96 mg/dL Final No results found for: GFR Risks, benefits, and indications for diagnostic/therapeutic corticosteroid injections discussed. Risks include, but are not limited to: -Increase in blood sugar if the patient has a diagnosis of diabetes. Moreover, we discussed that the patient is not eligible for a steroid injection today if their A1c is >/=8.0 or if they report large daily swings in blood sugar that this provider deems unsafe for injection. If this is the case, they will need to follow up with their PCP or referring provider after this appointment and may return for an injection once their blood sugar is under better control and A1c is <8.0. -Risk of cosmetic changes to the skin, like lightening of the skin or dimpling of the skin over theinjection site - a known side effect of steroid injections. -Risk of a steroid flare, which is an immune response to the steroid that can cause symptoms such as facial flushing and worsening pain in the area of the injection. These symptoms may last 1-2 days and generally resolve without termite renewal inspector issues. -Risk of allergic reactions to the lidocaine or steroid can occur. If you have a known allergy to lidocaine or any steroid, please notify your doctor immediately. -Risk of bleeding and infection anytime we break the skin with a needle. Signs of infection are redness, warmth, swelling, worsening pain in the area of the injection, sometimes fevers and chills. Ifthe patient has any of these symptoms, they should seek medical care right away, either with us or the emergency room. After discussing the risks and benefits discussed above, the patient made an informed decision in the presence of a second democrat (Bernie Baum) to proceed with the injection. Injection performed as detailed in the procedure note below. CLINICAL IMPRESSION / ASSESSMENT: (M46.1) Sacroiliitis (primary encounter diagnosis) PLAN: Large Joint Arthro/Inj (R SI joint) 12/29/2024 4:55 PM The procedure site was prepped in the usual sterile fashion. Details:Musculoskeletal ultrasound was utilized to successfully localize placement of the injectionneedle at the appropriate site. Ultrasound images demonstrating local vasculature and demonstratinginjection of solution were saved. Medications: 6 mg betamethasone acetate-betamethasone sodium phosphate 6 mg/mL Anesthetics: 5 mL lidocaine (PF) 10 mg/mL (1 %); 3 mL ROPivacaine (PF) 5 mg/mL (0.5 %) Outcome: Tolerated well, no immediate complications Post-injection instructions were reviewed with the patient and the patient voiced understanding of these instructions. Informed Consent Consent Obtained: Verbal Kabetogama Protocol A moment to CARE was completed. [...] the bedside nurse for hospitalized patients) applicable. 0/10 briggs after the injection Follow up: with the referring provider in one month Pertinent previous records and images reviewed. Verbal health education was given to patient. Patient verbalizes understanding and agrees with the treatment plan as detailed above. Shaneka Clark MD [facility] documented in this encounterAv[facility]08-[facility] Evaluation note* Diagnosis Pre-op evaluation- Primary Preoperative examination, unspecified Stage 3 chronic kidney disease, unspecified whether stage 3a or 3b CKD (HCC) Pre-op evaluation- Primary Preoperative examination, unspecified Pain, unspecified Stage 3a chronic kidney disease (HCC) Elevated BP without diagnosis of hypertension PONV (postoperative nausea and vomiting) Nausea with vomiting Sacroiliitis- Primary Sacroiliitis, not elsewhere classified documented in this encounter [facility]07-[facility] Evaluation note* Diagnosis Pre-op evaluation- Primary Preoperative examination, unspecified Stage 3 chronic kidney disease, unspecified whether stage 3a or 3b CKD (HCC) Pre-op evaluation- Primary Preoperative examination, unspecified Pain, unspecified Stage 3a chronic kidney disease (HCC) Elevated BP without diagnosis of hypertension PONV (postoperative nausea and vomiting) Nausea with vomiting Trochanteric bursitis of right hip- Primary Enthesopathy of hip region Sacroiliitis Sacroiliitis, not elsewhere classified documented in this encounter [facility] Telephone encounter Note* Telephone Encounter - Poppy Haydee - 12/08/2024 11:31 AM EDT She called noting per her doctor she wants to go in a different direction; meaning stopping PT at this time. At her next fu in about a month, she was told she'd be noted on her progress and informed if PT is to reassess. [id number] Miscellaneous Notes* Telephone Encounter - Poppy Hubbard - 12/08/2024 11:31 AM EDT She called noting per her doctor she wants to go in a different direction; meaning stopping PT at this time. At her next fu in about a month, she was told she'd be noted on her progress and informed if PT is to reassess. documented in this encounterMiss[id number] Instructions* Patient Instructions* Olive Amaya PA-C - 12/07/2024 1:48 PM EDT documented in this encounterAvita [facility]07-23-2025 NoteHNO ID: [id number] Author: OLIVE AMAYA PA-C Service: ? Author Type: Physician [employer] Type: Progress Notes Filed: 12/15/2024 12:46 Note Text: This document has been created with the use of voice recognition technology. It may contain inaccuracies: misspellings, inaccurate syntax or word sense that escaped review. Chief complaint: Recheck of right hip and back pain HISTORY: Gracie is a 74 year old female. Patient comes in today for follow up of her right hip and back. Patient has a past medical history, medications and allergies were reviewed. She reports that she has had no real improvement in her symptoms and no lasting help with the dry needling. She states her pain level is still constant 4/10 in the lower lumbar spine on the right in the area of the SI joint and significant discomfort at the lateral aspect of the right hip if she lays on her right side though she has no pain in the right lateral hip with activity, so that is improved. She is very frustrated. No other musculoskeletal complaints PAST MEDICAL HISTORY [...] date: 1972 Quit date: 1973 Years since quittin.6 Smokeless tobacco: Never Substance Use Topics Alcohol use: Yes Comment: occasionally Drug use: Not Currently Comment: denies tx for drug/alcohol abuse in the past. EXAMINATION: GENERAL: Appears healthy, well-nourished, no deformities. ORIENTATION: Alert and oriented to person place and time HABITUS: Normal GAIT: Antalgic to the right On physical exam of the right hip today, she has excellent hip range of motion without hip irritability or tightness which is improved. Still has moderate tenderness over the greater trochanter. She has significant tenderness at the SI joint on the right. None on the left. No sciatic notch tenderness. General lower lumbar tenderness to a lesser degree. Fairly good lower lumbar spine range of motion. Negative SLR for radicular symptoms. Neurovascularly is intact. RADIOGRAPHS: None needed today. IMPRESSION: Encounter Diagnosis ICD-10-CM 1. Trochanteric bursitis of right hip M70.61 Large Joint Arthro/Inj: R greater trochanteric bursa 2. Sacroiliitis M46.1 Large Joint Arthro/Inj: R greater trochanteric bursa Plan: We discussed that her primary symptoms are that of sacroiliitis but she still has significant trochanteric bursitis as well. Her symptoms have not been relieved with conservative treatments and would like to consider cortisone injection for bursitis today. However her biggest complaint is sacroiliitis and will arrange for intra-articular injection under ultrasound guidance with in the near future. She agrees with this plan. Large Joint Arthro/Inj: R greater trochanteric bursa [...] these instructions. Informed Consent Consent Obtained: Verbal Kabetogama Protocol A moment to CARE was completed. [...] communicated to the patient or surrogate. Third democrat verified by Danna Amin MA. Olive Amaya PA-C December 07, 2024 12:32 [facility]07-23-2025 History of Present illness Narrative* Olive Amaya PA-C - 12/07/2024 12:30 PM EDTAssociated Order(s): Large Joint Arthro/Inj: R greater trochanteric bursa Post-Procedure Diagnose(s): Sacroiliitis; Trochanteric bursitis of right hip This document has been created with the use of voice recognition technology. It may contain inaccuracies: misspellings, inaccurate syntax or word sense that escaped review. Chief complaint: Recheck of right hip and back pain HISTORY: Garcie is a 74 year old female. Patient comes in today for follow up of her right hip and back. Patient has a past medical history, medications and allergies were reviewed. She reports that she has had no real improvement in her symptoms and no lasting help with the dry needling. She statesher pain level is still constant 4/10 in the lower lumbar spine on the right in the area of the SI joint and significant discomfort at the lateral aspect of the right hip if she lays on her right side though she has no pain in the right lateral hip with activity, so that is improved. She is very frustrated. No other musculoskeletal complaints PAST MEDICAL HISTORY [...] date: 1972 Quit date: 1973 Years since quittin.6 Smokeless tobacco: Never Substance Use Topics Alcohol use: Yes Comment: occasionally Drug use: Not Currently Comment: denies tx for drug/alcohol abuse in the past. EXAMINATION: GENERAL: Appears healthy, well-nourished, no deformities. ORIENTATION: Alert and oriented to person place and time HABITUS: Normal GAIT: Antalgic to the right On physical exam of the right hip today, she has excellent hip range of motion without hip irritability or tightness which is improved. Still has moderate tenderness over the greater trochanter. She has significant tenderness at the SI joint on the right. None on the left. No sciatic notch tenderness. General lower lumbar tenderness to a lesser degree. Fairly good lower lumbar spine range of motion. Negative SLR for radicular symptoms. Neurovascularly is intact. RADIOGRAPHS: None needed today. IMPRESSION: Encounter Diagnosis ICD-10-CM 1. Trochanteric bursitis of right hip M70.61 Large Joint Arthro/Inj: R greater trochanteric bursa 2. Sacroiliitis M46.1 Large Joint Arthro/Inj: R greater trochanteric bursa Plan: We discussed that her primary symptoms are that of sacroiliitis but she still has significanttrochanteric bursitis as well. Her symptoms have not been relieved with conservative treatments andwould like to consider cortisone injection for bursitis today. However her biggest complaint is sacroiliitis and will arrange for intra-articular injection under ultrasound guidance with in the near future. She agrees with this plan. Large Joint Arthro/Inj: R greater trochanteric bursa [...] these instructions. Informed Consent Consent Obtained: Verbal Kabetogama Protocol A moment to CARE was completed. [...] communicated to the patient or surrogate. Third democrat verified by Danna Amin MA. Olive Amaya PA-C December 07, 2024 12:32 PM documented in this encounterAvita [facility]07-[facility] History of Present illness Narrative* Tamara Peres, PT - 12/06/2024 10:30 AM EDT Physical Therapy Treatment Visit Patient Name: Gracie Jones Today's Date: 11/16/24 Encounter Diagnoses Name Primary? Primary osteoarthritis of right hip Yes Trochanteric bursitis of right hip Piriformis syndrome, right Visit number: 5 Timed Code Treatment Minutes: 24 minutes Total Treatment Time: 24 minutes Time In: 1030 Time Out: 1137 History: Pt states right hip was replaced 02/2023. States since surgery she has continued with painin right hip. Was recently seen by ortho who recommended therapy. Pt states she does a lot of gardening in the spring which does not help with hip pain. Was recently on vacation and was walking on beach. Had issues with slant where beach ended. Pt states she goes to the gym 3 days a week and seniorexercise 2 days a week. Feels like her right leg is longer than left when up and moving. Precautions: right NISHA Subjective: Pt states she felt good for a day or 2 following last session. Had a lot of pain in right low back and hip the other night. Will see ortho again tomorrow. Pain: 5-6/10 Objective: PT Evaluation (11/10/2024) RIGHT HIP AROM: 130 degrees flexion MMT: 4/5 right hip ER Palpation: moderate to severe tenderness right piriformis and greater trochanter Special Test: N/A Treatment: Education: HEP education with demonstration, Educated on Eval Findings and POC Manual Therapy: (16 minutes) Passive ROM, Joint mobilization, Soft Tissue Mobilization, Myofascial Release, Muscle Energy Technique, Neural Mobilization, Myofascial Cupping, Dry Needling, IASTM, and Scar mobilization as needed. IDN with static placement of two 3in needles to right piriformis in prone, bilateral lower lumbar paraspinals (7 mins, no charge). Manual lumbar distraction in supine withswiss ball. Therapeutic Exercise: (8 minutes) Strength, Endurance, Flexibility, ROM, HEP, Neural Mobilization, Power, and Core Stability as needed. Reviewed home program with good pt understanding. Discussed importance of stretching greater than 1x week to increase mobility. Therapeutic Activity: Exercises to improve dynamic activities, functional tasks, functional mobility to return to prior activity level as needed. Neuromuscular re-education: Balance Training, Muscle Facilitation, Dynamic Stability, Core Stabilization, and Blood Flow Restriction Training (BFRT) as needed. Modalities: Heat, Ice, Electrical Stimulation, Ultrasound, Cervical Mechanical Traction, Lumbar Mechanical Traction, Iontophoresis, and Fluidotherapy as needed. Assessment: Pt has completed 5 PT sessions for right hip pain. Pt continues to report pain in rightlow back/hip region. Min tenderness right lower lumbar region noted this date. Will continue or discharge per MD recommendation. Outcome Measure: Lower Extremity Functional Scale (LEFS): 70/80 Rehab Diagnosis: right hip pain and weakness Short Term Goal: To be met in 2 weeks Goal 1: Pt to be instructed in home exercise program. Retirement Goals: To be met in 10 weeks Goal 1: Pt to report independence and compliance with home program. Goal 2: Pt to report pain no greater than 2/10 in right hip with ADL's and functional tasks. Goal 3: Pt to achieve 4+/5 strength right hip ER to assist with functional mobility. Goal 4: Pt to score no less than 77/80 on LEFS indicating improved QOL. Pt will benefit from skilled PT for 1x/week from 11/10/2024 to 02/02/2025 to address the above impairments. I hereby deem this POC medically necessary. Please sign below. Date: documented in this encounterMiss[facility]-[id number] History of Present illness Narrative* Tamara Peres PT - 11/30/2024 10:00 AM EDT Images from the original note were not included. Physical Therapy Treatment Visit Patient Name: Gracie Jones Today's Date: 11/16/24 Encounter Diagnoses Name Primary? Primary osteoarthritis of right hip Yes Trochanteric bursitis of right hip Piriformis syndrome, right Visit number: 4 Timed Code Treatment Minutes: 31 minutes Total Treatment Time: 38 minutes Time In: 1015 Time Out: 1100 History: Pt states right hip was replaced 02/2023. States since surgery she has continued with painin right hip. Was recently seen by ortho who recommended therapy. Pt states she does a lot of gardening in the spring which does not help with hip pain. Was recently on vacation and was walking on beach. Had issues with slant where beach ended. Pt states she goes to the gym 3 days a week and seniorexercise 2 days a week. Feels like her right leg is longer than left when up and moving. Precautions: right NISHA Subjective: Pt states she has overall not noticed a lot of change in right hip pain. Gets pain in right low back/hip and at the same time feels pain on the outside of right knee. Pain: 5-6/10 Objective: PT Evaluation (11/10/2024) RIGHT HIP AROM: 130 degrees flexion MMT: 4/5 right hip ER Palpation: moderate to severe tenderness right piriformis and greater trochanter Special Test: N/A Treatment: Education: HEP education with demonstration, Educated on Eval Findings and POC Manual Therapy: (20 minutes) Passive ROM, Joint mobilization, Soft Tissue Mobilization, Myofascial Release, Muscle Energy Technique, Neural Mobilization, Myofascial Cupping, Dry Needling, IASTM, and Scar mobilization as needed. IDN with static placement of two 3in needles to right piriformis in prone, bilateral lower lumbar paraspinals (7 mins, no charge). Manual lumbar distraction in supine withswiss ball. Therapeutic Exercise: (11 minutes) Strength, Endurance, Flexibility, ROM, HEP, Neural Mobilization,Power, and Core Stability as needed. Reviewed home program with good pt understanding. Therapeutic Activity: Exercises to improve dynamic activities, functional tasks, functional mobility to return to prior activity level as needed. Neuromuscular re-education: Balance Training, Muscle Facilitation, Dynamic Stability, Core Stabilization, and Blood Flow Restriction Training (BFRT) as needed. Modalities: Heat, Ice, Electrical Stimulation, Ultrasound, Cervical Mechanical Traction, Lumbar Mechanical Traction, Iontophoresis, and Fluidotherapy as needed. Assessment: Pt has completed 4 PT sessions for right hip pain. Min to mod tenderness right lumbar paraspinals with increase muscle tone noted. Continues with min to moderate tenderness right buttock.Will continue to monitor sx's. Outcome Measure: Lower Extremity Functional Scale (LEFS): 70/80 Rehab Diagnosis: right hip pain and weakness Short Term Goal: To be met in 2 weeks Goal 1: Pt to be instructed in home exercise program. Retirement Goals: To be met in 10 weeks Goal 1: Pt to report independence and compliance with home program. Goal 2: Pt to report pain no greater than 2/10 in right hip with ADL's and functional tasks. Goal 3: Pt to achieve 4+/5 strength right hip ER to assist with functional mobility. Goal 4: Pt to score no less than 77/80 on LEFS indicating improved QOL. Pt will benefit from skilled PT for 1x/week from 11/10/2024 to 02/02/2025 to address the above impairments. I hereby deem this POC medically necessary. Please sign below. Date: documented in this encounterMissouri [facility] Hospital-[id number] History of Present illness Narrative* Tamara Peres PT - 11/23/2024 10:00 AM EDT Physical Therapy Treatment Visit Patient Name: Gracie Jones Today's Date: 11/16/24 Encounter Diagnoses Name Primary? Primary osteoarthritis of right hip Yes Trochanteric bursitis of right hip Piriformis syndrome, right Visit number: 3 Timed Code Treatment Minutes: 54 minutes Total Treatment Time: 59 minutes Time In: 1000 Time Out: 1059 History: Pt states right hip was replaced 02/2023. States since surgery she has continued with painin right hip. Was recently seen by ortho who recommended therapy. Pt states she does a lot of gardening in the spring which does not help with hip pain. Was recently on vacation and was walking on beach. Had issues with slant where beach ended. Pt states she goes to the gym 3 days a week and seniorexercise 2 days a week. Feels like her right leg is longer than left when up and moving. Precautions: right NISHA Subjective: Pt states she just came from working out. States she did not have any pain during her exercise; however, pain increased to approx 7/10. Pt states she felt better following her initial visit for a couple days but felt her pain returned and did not improve following last session. Pain: 5-6/10 Objective: PT Evaluation (11/10/2024) RIGHT HIP AROM: 130 degrees flexion MMT: 4/5 right hip ER Palpation: moderate to severe tenderness right piriformis and greater trochanter Special Test: N/A Treatment: Education: HEP education with demonstration, Educated on Eval Findings and POC Manual Therapy: (26 minutes) Passive ROM, Joint mobilization, Soft Tissue Mobilization, Myofascial Release, Muscle Energy Technique, Neural Mobilization, Myofascial Cupping, Dry Needling, IASTM, and Scar mobilization as needed. IDN with static placement of five 3in needles to right piriformis in prone (5 mins, no charge). STM with use of massage ball to right piriformis and right QL in prone Therapeutic Exercise: (24 minutes) Strength, Endurance, Flexibility, ROM, HEP, Neural Mobilization,Power, and Core Stability as needed. Pt performed and instructed in progression to home program this date; written instructions and pictures issued with good pt understanding. Discussed at length exercises pt is performing at gym, cues on form, exercises to avoid. Attempted supine piriformis; however, pt reports only discomfort in groin. Therapeutic Activity: Exercises to improve dynamic activities, functional tasks, functional mobility to return to prior activity level as needed. Neuromuscular re-education: Balance Training, Muscle Facilitation, Dynamic Stability, Core Stabilization, and Blood Flow Restriction Training (BFRT) as needed. Modalities: Heat, Ice, Electrical Stimulation, Ultrasound, Cervical Mechanical Traction, Lumbar Mechanical Traction, Iontophoresis, and Fluidotherapy as needed. Assessment: Pt has completed 3 PT sessions for right hip pain. Min/mod tenderness noted right piriformis and QL. Tolerates exercises well. Will continue to progress as pt tolerates. Outcome Measure: Lower Extremity Functional Scale (LEFS): 70/80 Rehab Diagnosis: right hip pain and weakness Short Term Goal: To be met in 2 weeks Goal 1: Pt to be instructed in home exercise program. 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 Goal 2: Pt to report pain no greater than 2/10 in right hip with ADL's and functional tasks. Goal 3: Pt to achieve 4+/5 strength right hip ER to assist with functional mobility. Goal 4: Pt to score no less than 77/80 on LEFS indicating improved QOL. Pt will benefit from skilled PT for 1x/week from 11/10/2024 to 02/02/2025 to address the above impairments. I hereby deem this POC medically necessary. Please sign below. Date: documented in this encounterMissouri [facility] Hospital-[id number] History of Present illness Narrative* Teresa Croft, PT - 11/16/2024 3:30 PM EDT Images from the original note were not included. Physical Therapy Treatment Visit Patient Name: Gracie Jones Today's Date: 11/16/24 Encounter Diagnoses Name Primary? Primary osteoarthritis of right hip Yes Trochanteric bursitis of right hip Piriformis syndrome, right Visit number: 2 Timed Code Treatment Minutes: 38 minutes Total Treatment Time: 42 minutes Time In: 1524 Time Out: 1610 History: Pt states right hip was replaced 02/2023. States since surgery she has continued with painin right hip. Was recently seen by ortho who recommended therapy. Pt states she does a lot of gardening in the spring which does not help with hip pain. Was recently on vacation and was walking on beach. Had issues with slant where beach ended. Pt states she goes to the gym 3 days a week and seniorexercise 2 days a week. Feels like her right leg is longer than left when up and moving. Precautions: right NISHA Subjective: Pt. Reports of no change in her buttock pain. C/c is right lateral knee pain. Pain: 5-6/10 Objective: PT Evaluation (11/10/2024) RIGHT HIP AROM: 130 degrees flexion MMT: 4/5 right hip ER Palpation: moderate to severe tenderness right piriformis and greater trochanter Special Test: N/A Treatment: Education: HEP education with demonstration, Educated on Eval Findings and POC Manual Therapy: (25 minutes) Passive ROM, Joint mobilization, Soft Tissue Mobilization, Myofascial Release, Muscle Energy Technique, Neural Mobilization, Myofascial Cupping, Dry Needling, IASTM, and Scar mobilization as needed. MFD with one cup sliding and static placement right greater trochanter in Left SL. IDN with static placement of five 3in needles to right piriformis in prone, 1 needle to right lateral knee at ITB, painful area. (5 mins, no charge) Therapeutic Exercise: (13 minutes) Strength, Endurance, Flexibility, ROM, HEP, Neural Mobilization,Power, and Core Stability as needed. Pt performed and instructed in home program this date; writteninstructions and pictures issued with good pt understanding. Discussed at length exercises pt is performing at gym, cues on form, exercises to avoid. Therapeutic Activity: Exercises to improve dynamic activities, functional tasks, functional mobility to return to prior activity level as needed. Neuromuscular re-education: Balance Training, Muscle Facilitation, Dynamic Stability, Core Stabilization, and Blood Flow Restriction Training (BFRT) as needed. Modalities: Heat, Ice, Electrical Stimulation, Ultrasound, Cervical Mechanical Traction, Lumbar Mechanical Traction, Iontophoresis, and Fluidotherapy as needed. Assessment: Pt is 74 y/o female with complaints of right hip pain following NISHA in 2022. Pt presents with decrease right ER strength. Moderate to severe tenderness right piriformis and greater trochanter. Pt had right lateral knee pain, trial of DN to lateral knee today. Post DN patient did have some bleed at right knee. Outcome Measure: Lower Extremity Functional Scale (LEFS): 70/80 Rehab Diagnosis: right hip pain and weakness Short Term Goal: To be met in 2 weeks Goal 1: Pt to be instructed in home exercise program. 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 Goal 2: Pt to report pain no greater than 2/10 in right hip with ADL's and functional tasks. Goal 3: Pt to achieve 4+/5 strength right hip ER to assist with functional mobility. Goal 4: Pt to score no less than 77/80 on LEFS indicating improved QOL. Pt will benefit from skilled PT for 1x/week from 11/10/2024 to 02/02/2025 to address the above impairments. I hereby deem this POC medically necessary. Please sign below. Date: documented in this encounterMissouri [facility] Hospital-[id number] Telephone encounter Note* Telephone Encounter - Florina Jerez RN - 11/10/2024 8:40 AM EDT -Poppy with [facility] (PT)/[phone]) calling in to office. -States Pt is in their facility for PT/dry needling, but they need a signed order faxed to their office to be able to complete this for Pt. -Noted the order is in the system. Order dated 10/06/2024. Poppy states the order has to be dated within the last 30 days. States if the provider will sign and date the existing order and have that faxed to her office--that will be fine. -Please call Poppy with any concerns. [facility]06-26-2025 Miscellaneous Notes* Telephone Encounter - Florina Jerez RN - 11/10/2024 8:40 AM EDT -Poppy with [facility] (PT)/[phone]) calling in to office. -States Pt is in their facility for PT/dry needling, but they need a signed order faxed to their office to be able to complete this for Pt. -Noted the order is in the system. Order dated 10/06/2024. Poppy states the order has to be dated within the last 30 days. States if the provider will sign and date the existing order and have that faxed to her office--that will be fine. -Please call Poppy with any concerns. documented in this encounterAv[facility] History of Present illness Narrative* Tamara Peres, PT - 11/10/2024 8:00 AM EDT Images from the original note were not included. Physical Therapy Evaluation Visit Patient Name: Gracie Jones Today's Date: 11/10/2024 Encounter Diagnoses Name Primary? Trochanteric bursitis of right hip Yes Primary osteoarthritis of right hip Piriformis syndrome, right Visit number: 1 Timed Code Treatment Minutes: 60 minutes Total Treatment Time: 60 minutes Time In: 0800 Time Out: 0909 History: Pt states right hip was replaced 02/2023. States since surgery she has continued with painin right hip. Was recently seen by ortho who recommended therapy. Pt states she does a lot of gardening in the spring which does not help with hip pain. Was recently on vacation and was walking on beach. Had issues with slant where beach ended. Pt states she goes to the gym 3 days a week and seniorexercise 2 days a week. Feels like her right leg is longer than left when up and moving. Precautions: right NISHA Subjective: right buttock, lateral hip Pain: 5-6/10 Objective: PT Evaluation (11/10/2024) RIGHT HIP AROM: 130 degrees flexion MMT: 4/5 right hip ER Palpation: moderate to severe tenderness right piriformis and greater trochanter Special Test: N/A Treatment: Education: HEP education with demonstration, Educated on Eval Findings and POC Manual Therapy: (9 minutes) Passive ROM, Joint mobilization, Soft Tissue Mobilization, Myofascial Release, Muscle Energy Technique, Neural Mobilization, Myofascial Cupping, Dry Needling, IASTM, and Scar mobilization as needed. MFD with one cup sliding and static placement right greater trochanter in Left SL. IDN with static placement of five 3in needles to right piriformis in prone (5 mins, no charge) Therapeutic Exercise: (15 minutes) Strength, Endurance, Flexibility, ROM, HEP, Neural Mobilization,Power, and Core Stability as needed. Pt performed and instructed in home program this date; writteninstructions and pictures issued with good pt understanding. Discussed at length exercises pt is performing at gym, cues on form, exercises to avoid. Therapeutic Activity: Exercises to improve dynamic activities, functional tasks, functional mobility to return to prior activity level as needed. Neuromuscular re-education: Balance Training, Muscle Facilitation, Dynamic Stability, Core Stabilization, and Blood Flow Restriction Training (BFRT) as needed. Modalities: Heat, Ice, Electrical Stimulation, Ultrasound, Cervical Mechanical Traction, Lumbar Mechanical Traction, Iontophoresis, and Fluidotherapy as needed. Assessment: Pt is 74 y/o female with complaints of right hip pain following NISHA in 2022. Pt presents with decrease right ER strength. Moderate to severe tenderness right piriformis and greater trochanter. Received manual therapy and instructed in home program. Pt will benefit from further PT. Outcome Measure: Lower Extremity Functional Scale (LEFS): 70/80 Rehab Diagnosis: right hip pain and weakness Short Term Goal: To be met in 2 weeks Goal 1: Pt to be instructed in home exercise program. Retirement Goals: To be met in 10 weeks Goal 1: Pt to report independence and compliance with home program. Goal 2: Pt to report pain no greater than 2/10 in right hip with ADL's and functional tasks. Goal 3: Pt to achieve 4+/5 strength right hip ER to assist with functional mobility. Goal 4: Pt to score no less than 77/80 on LEFS indicating improved QOL. Pt will benefit from skilled PT for 1x/week from 11/10/2024 to 02/02/2025 to address the above impairments. I hereby deem this POC medically necessary. Please sign below. Date: documented in this encounterMissouri [facility] Hospital-[id number] Evaluation note* Diagnosis Onset Date Resolution Status Admit Date Acute reaction to situationa l stress acute November 07, 2024 1:00pm Chronic kidney disease (CKD) acute November 07, 2024 1:00pm Dysuria acute November 07 1:00pm HLD (hyperlipidemia) acute November 07, 2024 1:00pm HTN (hypertension) acute October 172024 1:00pm Memory change acute November 07, 2024 1:00pm Right rotator cuff tear acute J 2024 1:00pm Skin lesion of hand acute November 07, 2024 1:00pm Encounter for annual wellnes s visit (AWV) in Medicare patient noneactive November 07, 2024 1:00pm [facility] Work Phone: 1([phone]) 607-179105-22-2025 NoteHNO ID: [id number] Author: OLIVE AMAYA PA-C Service: ? Author Type: Physician Assembler [employer] Type: Progress Notes Filed: 10/06/2024 10:18 Note Text: Recording using [employer] software for draft documentation of the visit was discussed with the patient/authorized hobbies and crafts sales representative; all questions welcomed and answered. Patient/authorized hobbies and crafts sales representative agreed to proceed Chief complaint: Gracie [...] Olive Amaya PA-C October 06, 2024 10:17 [facility]05-22-2025 NoteHNO ID: [id number] Author: BETHANY GIPSON RT(R) Service: ? Author [...] PATIENT PRESENTS WITH AN IMPLANTABLE OR ATTACHED RELAYS DRAFTSPERSON: No RADIOLOGY DEPARTMENT: General X-ray: Exam(s) Completed: Pelvis X-Ray: Pelvis with Hip Right and Wt. Bearing PERIPHERAL IV DATA: Not applicable SIGNED BY: RT Fei(R) October 06, 2024 9:09 [facility]05-12-2025 Telephone encounter Note* Telephone Encounter - Tomeka Carranza MA - 09/26/2024 1:10 PM EDT Please advise, thank you. [facility]-[id number] Miscellaneous Notes* Telephone Encounter - Tomeka Carranza MA - 09/26/2024 1:10 PM EDT Please advise, thank you. documented in this encounterMissouri Baptist Hospital-[id number] History of Present illness Narrative* Alyson Vega DPM - 09/26/2024 11:30 AM EDT Images from the original note were not included. HPI: Patient presents in office today with calluses bilaterally as well as nail fungus. Onychomycosis/Toenail Fungus under Podiatric consultations: Patient states that they have noticed changes in the appearance of the toenails for the past chronic The big toe is thickened and discolored. Using CNU is helping. Treatment has consisted of CNU withimprovement. Patient does not have pain associated with the toenails. Pt would like callous trimmedback again. Pt has no other concerns today. [...] at this time. We discussed use of [id number]-mbuczuc options such as Micah's vaporub, vinegar applied [...] next 6-9 months. If they do not noticeimprovement then we would consider obtaining fungal culture to determine underlying causative organism, use of formula 3 versus oral medications at that time. RTC: 3 months. documented in this encounterMissouri Baptist Hospital-[id number] History of Present illness Narrative* Alyson Vega DPM - 06/27/2024 11:30 AM EST Images from the original note were not included. HPI: Patient presents in office today with calluses bilaterally as well as nail fungus. Onychomycosis/Toenail Fungus under Podiatric consultations: Patient states that they have noticed changes in the appearance of the toenails for the past chronic The big toe is thickened and discolored. Using CNU is helping. Treatment has consisted of CNU withimprovement. Patient does not have pain associated with the toenails. Pt would like callous trimmedback again. Pt has no other concerns today. [...] 3-4 months for recheck. documented in this encounterMissouri Baptist Hospital-[id number] Evaluation note* Diagnosis Pre-op evaluation- Primary Preoperative examination, unspecified Stage 3 chronic kidney disease, unspecified whether stage 3a or 3b CKD (HCC) Pre-op evaluation- Primary Preoperative examination, unspecified Pain, unspecified Stage 3a chronic kidney disease (HCC) Elevated BP without diagnosis of hypertension PONV (postoperative nausea and vomiting) Nausea with vomiting Aftercare following right hip joint replacement surgery documented in this encounter [facility]11-11-2024 Instructions* Patient Instructions* Olive Amaya PA-C [...] a day for inflammation. documented in this encounterAv[facility]2024 NoteHNO ID: [id number] Author: OLIVE AMAYA PA-C Service: ? Author Type: Physician Assembler [employer] Type: Progress Notes Filed: 03/28/2024 17:10 Note [...] Olive Amaya PA-C March 28, 2024 8:21 [facility]11-11-2024 History of Present illness Narrative * Olive [...] 28, 2024 8:21 AM documented in this encounterAv[facility]-2024 NoteHNO ID: [id number] Author: LYNN SOW RT(R) Service: ? Author Type: Technologist [...] PATIENT PRESENTS WITH AN IMPLANTABLE OR ATTACHED RELAYS DRAFTSPERSON: No RADIOLOGY DEPARTMENT: General X-ray: Exam(s) Completed: Pelvis X-Ray: Pelvis General AP PERIPHERAL IV DATA: Not applicable SIGNED BY: RT Sarai(R) March 28, 2024 8:11 [facility]10-28-2024 History of Present illness Narrative* Teresa Croft, [...] in her cervical ROM Special test: negative Amrik-hallpik bilateral Treatment: Manual Therapy: (25 minutes) Delivered [...] help improve flexibility today. Ended session with IFC/P Short Term Goal: To be met in 2 weeks Goal 1: Pt to be instructed in home exercise program. 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 Date: documented in this encounterMissouri Baptist Hospital-[id number] History of Present illness Narrative* Evelyn Link, TWISTING FRAME FIXER - 03/11/2024 8:00 AM EDT Physical Therapy [...] in her cervical ROM Special test: negative Amrik-hallpik bilateral Treatment: Manual Therapy: (15 minutes) Delivered [...] did not produce dizziness. Ended session with IFC/MHP Outcome Measure: Rehab Diagnosis: Short Term Goal: To be met in 2 weeks Goal 1: Pt to be instructed in home exercise program. Retirement Goals: To be met in 10 weeks [...] Please sign below. Date: documented in this [facility]10-01-2024 History of Present illness Narrative* Kota Bonilla MD - 02/16/2024 10:49 AM EDTAssociated Problem(s): Cervical paraspinal muscle spasm PT. Add Mg. No clear need for Rx muscle relaxant, but pt could have tizanidine 4 if/when desired. * Kota Bonilla MD - 02/16/2024 10:48 AM EDTAssociated Problem(s): Dizziness --- cervicogenic dizziness. PT 2nd opinion - Sandra Olivas or Slim. * Kota Bonilla MD - 02/16/2024 10:15 AM EDT Images from the original note were not included. Outpatient Progress Note Prev Appt: Visit date not found Chief Complaint Patient presents with Cervical Spondylosis Assessment and Plan - Dizziness --- cervicogenic dizziness. PT 2nd opinion - Sandra Olivas or Slim. Cervical paraspinal muscle spasm PT. [...] Imaging Testing Surgery Fusion anterior C4-6 (~2013, [facility]) Failed Physical Exam - General appearance, mentation, [...] Medical History: Diagnosis Date Anxiety Breast cancer (CMS/HCC) 1993 x3 Past Surgical History: Procedure Laterality [...] 02/16/2024. Kota Bonilla M.D. documented in this encounterMissouri Baptist Hospital-[id number] Evaluation note* Diagnosis Pre-op evaluation- Primary Preoperative [...] Nausea with vomiting documented in this encounter [facility]09-17-2024 Evaluation note* Diagnosis Pre-op evaluation- Primary Preoperative examination, unspecified Stage 3 chronic kidney disease, unspecified whether stage 3a or 3b CKD (HCC) Pre-op evaluation- Primary Preoperative examination, unspecified Pain, unspecified Stage 3a chronic kidney disease (HCC) Elevated BP without diagnosis of hypertension PONV (postoperative nausea and vomiting) Nausea with vomiting Aftercare following right hip joint replacement surgery documented in this encounter [facility]09-11-2024 Evaluation note* Diagnosis Pre-op evaluation- Primary Preoperative examination, unspecified Stage 3 chronic kidney disease, unspecified whether stage 3a or 3b CKD (HCC) Pre-op evaluation- Primary Preoperative examination, unspecified Pain, unspecified Stage 3a chronic kidney disease (HCC) Elevated BP without diagnosis of hypertension PONV (postoperative nausea and vomiting) Nausea with vomiting Aftercare following right hip joint replacement surgery documented in this encounter [facility]08-26-2024 Telephone encounter Note* Telephone Encounter - Isaiah Arriaga MD - 01/11/2024 2:47 PM EDT rx sent to pharmacy on dial patient notified of the dosage change Isaiah Arriaga II, MD [facility]08-26-2024 Miscellaneous Notes* Telephone Encounter - Isaiah Arriaga MD - 01/11/2024 2:47 PM EDT rx sent to pharmacy on dial patient notified of the dosage change Isaiah Arriaga II, MD documented in this encounterAv[facility] Instructions* Patient Instructions* Olive Amaya PA-C [...] for possible cortisone injection. documented in this encounterAv[facility]05-[facility] History of Present illness Narrative* Olive [...] 23, 2023 8:34 AM documented in this encounterAvita [facility] History of Present illness Narrative* Evette Nascimento RT(R) - 09/23/2023 8:10 AM EDT Radiology [...] PATIENT PRESENTS WITH AN IMPLANTABLE OR ATTACHED RELAYS DRAFTSPERSON: No RADIOLOGY DEPARTMENT: General X-ray: Exam(s) Completed: Pelvis X-Ray: Pelvis General AP PERIPHERAL IV DATA: Not applicable SIGNED BY: RT Thuy(Linda) September 23, 2023 8:12 AM documented in this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 Clinical Notes Nov, Stage 3 chronic kidney disease, unspecified whether stage 3a or 3b CKD (ICD-10 - N18.30) [facility] Other 06-21-2022 History of Present illness Narrative* [...] months Niall Rodriguez MD documented in this encounterAv[facility]06-21-[facility]22 History of Present illness Narrative* Evette Nascimento, RT(R) - 11/05/2021 1:12 PM EDT Radiology Service [...] PERIPHERAL IV DATA: Not applicable SIGNED BY: Evette Nascimento RT(R) November 05, 2021 1:12 PM documented in this encounterAvita [facility]06-16-2022 Miscellaneous Notes* Addendum Note - Alex Frederick MD - 10/31/2021 5:16 PM EDT Addended by: ALEX FREDERICK on: 10/31/2021 05:16 PM Modules accepted: Orders documented in this encounterAvita [facility]06-16-2022 Instructions* Patient Instructions* Alex Frederick MD - 10/31/2021 5:10 PM EDT INSTRUCTIONS FOR SCHEDULING SURGERY: CONTACT DR. FREDERICK'S INTERVENTIONIST: JOSHUA QUILES AT [phone] (9AM-5PM, THURSDAY-THURSDAY) - IF YOU RECEIVE JOSHUA'S [...] OR QUESTIONS, CALL DR. FREDERICK'S OFFICE AT [phone] (PRESS 0 TO BYPASS THE AUTOMATED GREETING AND BE TRANSFERRED TO AN SOLAR THERMAL INSTALLER) documented in this encounterAvita [facility]06-16-2022 History of Present illness Narrative* Alex [...] surgery is medically necessary to provide maximal congregational of vision andfacilitate completion of the corneal [...] components. Alex Frederick MD documented in this encounterAvita [facility]06-16-2022 Evaluation note* Encounter Date Diagnosis Assessment [...] that were not corrected during review process. [facility] Other 06-10-2022 History of Present illness Narrative* Gregor Barahona, - 10/25/2021 2:15 PM EDT SERVICE DATE: [...] 2021 TIME: 2:32 PM documented in this encounterAvita [facility]06-10-2022 History of Present illness Narrative* Bethany Gipson RT(R) - 10/25/2021 2:11 PM EDT Radiology Service [...] 25, 2021 2:11 PM documented in this encounterAvita [facility]06-02-2022 Evaluation note* Encounter Date Diagnosis Assessment Notes Treatment Notes Treatment Clinical Notes Oct, Screening for colon cancer (ICD-10 - Z12.11) [facility] Other 05-16-2022 Evaluation note* Encounter Date Diagnosis Assessment Notes Treatment Notes Treatment Clinical Notes September, Screening mammogram for breast cancer (ICD-10 - Z12.31) Discussed screening for breast cancer but the decreased need for Pap/pelvic exams with age. September, Right hip pain (ICD-10 - M25.551) Patient reports chronic right hip pain and would like referred to a new orthopedic mechanic other than Yaron Purcell and [facility]. Through much deliberation she is decided on a referral to [facility] orthopedics. Declines work-up, physical therapy or medication at this time. September, Chronic neck pain (ICD-10 - M54.2) Has seen neurosurgery. Did discuss her history at length. Would like to be referred to a new neurosurgeon. Through much deliberation she is agreed to a referral to [facility] for neurosurgery consult. Last known neurosurgeon was Dr. Tran through [facility]. September, Right rotator cuff tear (ICD-10 - M75.101) Patient reports right shoulder pain and never went for follow-up regarding the need for rotator cuff tear. She would like referred to a new orthopedic mechanic other than Yaron Purcell and [facility]. Through much deliberation she is decided on a referral to [facility] orthopedics. Declines work-up, physical therapy or [...] undergoing colonoscopy. Referral is being sent to [facility] gastroenterology by office staff. September, Other We [...] patient is sent home pleased, without concerns. [facility] Other 04-01-2022 Miscellaneous Notes* Telephone Encounter - Dasia Clark MA - 11/05/2021 12:39 PM EDT Below message reviewed with Dr. Barahona. Dasia Clark MA * Telephone Encounter - Gabriela Kim RN - 11/04/2021 1:32 PM EDT Pt calls Seen 10-25 Spoke with her pcp and was advised to take lower dose of below Pt does not have a kidney dr celecoxib (CELEBREX) 200 mg capsule 60 capsule 2 10/25/2021 01/23/2022 Sig: Take 1 capsule by mouth twice daily. Patient not taking: Reported on 10/31/2021 Sent to pharmacy as: celecoxib (CELEBREX) 200 mg capsule Class: Normal Route: ORAL Order: [id number] E-Prescribing Status: Receipt confirmed by pharmacy (10/25/2021 2:29 PM EDT) documented in this encounterAvita [facility]03-22-2022 Miscellaneous Notes* Telephone Encounter - Jose Alberto Washington - 08/06/2021 10:16 AM EDT Received outside records from [facility], gave to Dr. Frederick for review. documented in [facility] + [facility] note Future Appointments Appointment Date:01/22/2022 02:20:00 PM Scheduled Provider:Carl Agudelo DO Location:[facility] Appointment Type:[facility] Evaluation note* Diagnosis Primary osteoarthritis of right hip- Primary Primary localized osteoarthrosis, pelvic region and thigh Right sciatic nerve pain documented in this encounter [facility] note* Diagnosis Fuchs' corneal dystrophy of both eyes- Primary Nuclear senile cataract of both eyes [facility] Rotator cuff arthropathy, right- Primary Fuchs' corneal dystrophy of both eyes Nuclear senile cataract of both eyes Fuchs' corneal dystrophy of both eyes Nuclear senile cataract of both eyes [facility]No [facility] [employer] Other Evaluation note* Diagnosis Primary osteoarthritis of right hip- Primary Primary localized osteoarthrosis, pelvic region and thigh Fuchs' corneal dystrophy of both eyes Nuclear senile cataract of both eyes Fuchs' corneal dystrophy of both eyes Nuclear senile cataract of both eyes documented in this encounter [facility]* Diagnosis Pre-operative examination Preoperative examination, unspecified Fuchs' corneal dystrophy of both eyes Nuclear senile cataract of both eyes Fuchs' corneal dystrophy of both eyes Nuclear senile cataract of both eyes documented [facility] this encounter [facility]* Diagnosis Nuclear sclerotic cataract of both eyes- Primary Senile nuclear sclerosis Fuchs' corneal dystrophy of both eyes Nuclear senile cataract of both eyes Fuchs' corneal dystrophy of both eyes Nuclear senile cataract of both eyes documented in this encounter [facility]* Diagnosis Fuchs' corneal dystrophy of both eyes- Primary Fuchs' corneal dystrophy of both eyes Nuclear senile cataract of both eyes Fuchs' corneal dystrophy of both eyes Nuclear senile cataract of both eyes documented in this encounter [facility]* Diagnosis Fuchs' corneal dystrophy of both eyes- Primary Status post corneal transplant Cornea replaced by transplant Fuchs' corneal dystrophy of both eyes Nuclear senile cataract of both eyes documented in this encounter [facility]* Diagnosis Status post corneal transplant- Primary Cornea replaced by transplant Pseudophakia Lens replaced by other means documented in this encounter [facility]* Diagnosis Pseudophakia- Primary Lens replaced by other means Status post corneal transplant Cornea replaced by transplant PCO (posterior capsular opacification), right After-cataract, unspecified Ptosis of both eyelids Unspecified ptosis of eyelid documented in this encounter [facility]* Diagnosis 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 Myogenic ptosis Dermatochalasis of both upper eyelids documented in this encounter [facility]* Diagnosis Memory change- Primary Memory loss Fuchs' corneal dystrophy of both eyes Stage 3 chronic kidney disease, unspecified whether stage 3a or 3b CKD (HCC) Elevated blood-pressure reading without diagnosis of hypertension Elevated blood pressure reading without diagnosis of hypertension Myogenic ptosis of eyelid of both eyes Myogenic ptosis Dermatochalasis of both upper eyelids documented [facility]* Diagnosis Primary osteoarthritis of right hip- Primary Primary localized osteoarthrosis, pelvic region and thigh Myogenic ptosis of eyelid of both eyes Myogenic ptosis Dermatochalasis of both upper eyelids documented [facility] this encounter [facility]* Diagnosis Post-operative state- Primary Other postprocedural status documented in this encounter [facility] noteNo assessment information availableMarion Hospital Work Phone: Evaluation note* Diagnosis Primary [...] region and thigh [facility]* Diagnosis Primary osteoarthritis of right hip- Primary Primary localized osteoarthrosis, pelvic region and thigh Primary osteoarthritis of right hip Primary localized osteoarthrosis, pelvic region and thigh [facility]* Diagnosis Aftercare following right hip joint replacement surgery- Primary Postoperative lightheadedness documented in this encounter [facility] note* Diagnosis Aftercare following right hip joint replacement surgery- Primary documented in this encounter [facility] note* Diagnosis Trochanteric bursitis of right hip- Primary Enthesopathy of hip region Aftercare following right hip joint replacement surgery Aftercare following right hip joint replacement surgery documented [facility] this encounter [facility]* Author Lyndsay Dunbar [facility] Authored October 29, 2023 3:13 pm *Progress note was completed with the assistance of voice recognition software for dictation purposes. Please excuse any grammatical errors that were not corrected during review process. [facility] Work Phone: evaluation note* Diagnosis Primary osteoarthritis of right hip [...] Nausea with vomiting documented in this encounter [facility]* Diagnosis Pain Generalized pain documented in this encounter [facility]* Diagnosis Pain Generalized pain documented in this encounter [facility]* Diagnosis Dizziness- Primary Dizziness and giddiness Cervical paraspinal muscle spasm Spasm of muscle documented [facility] this encounter [facility]* Diagnosis Onset Date Resolution Status Acute reaction to situational stress acute History of right hip replacement acute Oral mucosal lesion acute [facility] Work Phone: Evaluation note* Diagnosis Cervical paraspinal muscle spasm- Primary Spasm of muscle Dizziness Dizziness and giddiness documented in this encounter [facility]* Diagnosis Dizziness- Primary Dizziness and giddiness Cervical paraspinal muscle spasm Spasm of muscle documented in this encounter [facility]* Diagnosis Dizziness- Primary Dizziness and giddiness Cervical paraspinal muscle spasm Spasm of muscle Dizziness- Primary Dizziness and giddiness Cervical paraspinal muscle spasm Spasm of muscle documented in this encounter [facility]* Diagnosis Dizziness- Primary Dizziness and giddiness Cervical paraspinal muscle spasm Spasm of muscle Dizziness- Primary Dizziness and giddiness Cervical paraspinal muscle spasm Spasm of muscle documented in this encounter [facility]* Diagnosis Dizziness- Primary Dizziness and giddiness Cervical paraspinal muscle spasm Spasm of muscle Dizziness- Primary Dizziness and giddiness Cervical paraspinal muscle spasm Spasm of muscle documented in this encounter [facility]* Diagnosis Dizziness- Primary Dizziness and giddiness Cervical paraspinal muscle spasm Spasm of muscle Dizziness- Primary Dizziness and giddiness Cervical paraspinal muscle spasm Spasm of muscle documented in this encounter [facility]* Diagnosis Pre-op evaluation- Primary Preoperative [...] joint replacement surgery documented [facility] this encounter [facility]* Diagnosis Dizziness- Primary Dizziness and giddiness Cervical paraspinal muscle spasm Spasm of muscle Onychomycosis- Primary Dermatophytosis of nail Pain in both feet Corns and callosities documented in this encounter [facility]* Diagnosis Dizziness- Primary Dizziness and giddiness Cervical paraspinal muscle spasm Spasm of muscle Onychomycosis Dermatophytosis of nail documented in this encounter [facility]* Diagnosis Dizziness- Primary Dizziness and giddiness Cervical paraspinal muscle spasm Spasm of muscle Onychomycosis- Primary Dermatophytosis of nail Pain in both feet Corns and callosities documented in this encounter [facility]* Diagnosis Dizziness- Primary Dizziness and giddiness Cervical paraspinal muscle spasm Spasm of muscle Trochanteric bursitis of right hip- Primary Primary osteoarthritis of right hip Piriformis syndrome, right documented in this encounter [facility]* Diagnosis Dizziness- Primary Dizziness and giddiness Cervical paraspinal muscle spasm Spasm of muscle Primary osteoarthritis of right hip- Primary Trochanteric bursitis of right hip Piriformis syndrome, right documented in this encounter [facility]* Diagnosis Dizziness- Primary Dizziness and giddiness Cervical paraspinal muscle spasm Spasm of muscle Primary osteoarthritis of right hip- Primary Trochanteric bursitis of right hip Piriformis syndrome, right documented in this encounter [facility]* Diagnosis Dizziness- Primary Dizziness and giddiness Cervical paraspinal muscle spasm Spasm of muscle Primary osteoarthritis of right hip- Primary Trochanteric bursitis of right hip Piriformis syndrome, right documented in this encounter [facility]* Diagnosis Pre-op evaluation- Primary Preoperative examination, unspecified Stage 3 chronic kidney disease, unspecified whether stage 3a or 3b CKD (HCC) Pre-op evaluation- Primary Preoperative examination, unspecified Pain, unspecified Stage 3a chronic kidney disease (HCC) Elevated BP without diagnosis of hypertension PONV (postoperative nausea and vomiting) Nausea with vomiting Low back pain, unspecified back pain laterality, unspecified chronicity, unspecified whether sciatica present- Primary documented in this encounter [facility] [place] general Narrative - Reported* Type Description Date Medical History 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 Hospitalization History See surgical hx [facility] Other Hisdtqe general Narrative - Reported* Type Description Date [...] replacement 3 Hospitalization History See surgical hx [facility] Other History general Narrative - Reported* Type [...] replacement 3 Hospitalization History See surgical hx [facility] Other Hospital course Narrative No data available for this section [facility] Hospital Discharge instructionsAmbulatory Orders* Referral to Neurology Location: None [facility] Work Phone: Progress note No data available for this section [facility] for referral (narrative)* Diagnostic Procedure Only (Routine) - Closed Specialty Diagnoses / Procedures Referred By Contac t Referred To Contact XR IMAGING Diagnoses Primary osteoarthritis of right hip Procedures XR HIP GENERAL 3V PELV/AP/LAT RIGHT RADEX HIP UNILATERAL WITH PELVIS 2-3 VIEWS Isaiah Arriaga MD [address] [place] [address] Xr Imaging Referral ID Status Reason Start Date Expiration Date V isits Requested Visits Authorized [id number] Closed Auto-Generate d Referral 01/04/2022 02/03/2023 1 1 [facility] for referral (narrative)* - Authorized Specialty Diagnoses / Procedures Referred By Contac t Referred To Contact Physical Therapy Diagnoses Primary osteoarthritis of right hip Procedures CONSULT TO PHYSICAL THERAPY Isaiah Arriaga MD [address] [place] [address] Referral ID Status Reason Start Date Expiration Date V isits Requested Visits Authorized [id number] Authorized 12/23/2022 03/23/2023 99 99 * Diagnostic Procedure Only (Routine) - Closed Specialty Diagnoses / Procedures Referred By Contac t Referred To Contact XR IMAGING Diagnoses Primary osteoarthritis of right hip Procedures XR HIP GENERAL 3V PELV/AP/LAT RIGHT RADEX HIP UNILATERAL WITH PELVIS 2-3 VIEWS Isaiah Arriaga MD [address] [place] [address] Xr Imaging Referral ID Status Reason Start Date Expiration Date V isits Requested Visits Authorized [id number] Closed Auto-Generate d Referral 12/16/2022 01/15/2024 1 1 [facility] for referral (narrative)* Diagnostic Procedure Only (Routine) - Closed Specialty Diagnoses / Procedures Referred By Contac t Referred To Contact XR IMAGING Diagnoses Aftercare following right hip joint replacement surgery Procedures XR PELVIS 1V AP RADIOLOGIC EXAMINATION PELVIS 1/2 VIEWS Olive Amaya PA-C [address] [place] [address] [place] [address] Referral ID Status Reason Start Date Expiration Date V isits Requested Visits Authorized [id number] Closed Auto-Generate d Referral 04/06/2023 05/05/2024 1 1 [facility] for referral (narrative)* Diagnostic Procedure Only (Routine) - Closed Specialty Diagnoses / Procedures Referred By Contac t Referred To Contact XR IMAGING Diagnoses Aftercare following right hip joint replacement surgery Procedures XR PELVIS 1V AP RADIOLOGIC EXAMINATION PELVIS 1/2 VIEWS Olive Amaya PA-C [address] [place] [address] [place] [address] Referral ID Status Reason Start Date Expiration Date V isits Requested Visits Authorized [id number] Closed Auto-Generate d Referral 09/22/2023 10/21/2024 1 1 [facility] for referral (narrative)* Diagnostic Procedure Only (Routine) - Closed Specialty Diagnoses / Procedures Referred By Contac t Referred To Contact XR IMAGING Diagnoses Aftercare following right hip joint replacement surgery Procedures XR PELVIS 1V AP RADIOLOGIC EXAMINATION PELVIS 1/2 VIEWS Olive Amaya PA-C [address] [place] [address] [place] [address] Referral ID Status Reason Start Date Expiration Date V isits Requested Visits Authorized [id number] Closed Auto-Generate d Referral 09/22/2023 10/21/2024 1 1 [facility] for referral (narrative)* Diagnostic Procedure Only (Routine) - Closed Specialty Diagnoses / Procedures Referred By Contac t Referred To Contact XR IMAGING Diagnoses Aftercare following right hip joint replacement surgery Procedures XR PELVIS 1V AP RADIOLOGIC EXAMINATION PELVIS 1/2 VIEWS Olive Amaya PA-C [address] [place] [address] [place] [address] Referral ID Status Reason Start Date Expiration Date V isits Requested Visits Authorized [id number] Closed Auto-Generate d Referral 04/06/2023 05/05/2024 1 1 [facility] for referral (narrative)* Diagnostic Procedure Only (Routine) - Closed Specialty Diagnoses / Procedures Referred By Contac t Referred To Contact XR IMAGING Diagnoses Primary osteoarthritis of right hip Procedures XR HIP GENERAL 3V PELV/AP/LAT RIGHT RADEX HIP UNILATERAL WITH PELVIS 2-3 VIEWS Isaiah Arriaga MD [address] [place] [address] [place] [address] Referral ID Status Reason Start Date Expiration Date V isits Requested Visits Authorized [id number] Closed Auto-Generate d Referral 12/16/2022 01/15/2024 1 1 [facility] for referral (narrative)* Diagnostic Procedure Only (Routine) - Closed Specialty Diagnoses / Procedures Referred By Contac t Referred To Contact XR IMAGING Diagnoses Primary osteoarthritis of right hip Procedures XR HIP GENERAL 3V PELV/AP/LAT RIGHT RADEX HIP UNILATERAL WITH PELVIS 2-3 VIEWS Isaiah Arriaga MD [address] [place] [address] [place] [address] Referral ID Status Reason Start Date Expiration Date V isits Requested Visits Authorized [id number] Closed Auto-Generate d Referral 01/04/2022 02/03/2023 1 1 [facility] for referral (narrative)* Diagnostic Procedure Only (Routine) - Closed Specialty Diagnoses / Procedures Referred By Contac t Referred To Contact XR IMAGING Diagnoses Pain Procedures XR HIP GENERAL 3V PELV/AP/LAT RIGHT RADEX HIP UNILATERAL WITH PELVIS 2-3 VIEWS Gregor Barahona, DO [address] [place] [address] [place] [address] Referral ID Status Reason Start Date Expiration Date V isits Requested Visits Authorized [id number] Closed Auto-Generate d Referral 10/09/2021 11/08/2022 1 1 [facility] for referral (narrative)* Diagnostic Procedure Only (Routine) - Closed Specialty Diagnoses / Procedures Referred By Contac t Referred To Contact XR IMAGING Diagnoses Pain Procedures XR SHOULDER GENERAL 3V OR MORE AP/TRUE AP/OTHER RIGHT RADEX SHOULDER COMPLETE MINIMUM 2 VIEWS Gregor Barahona, DO [address] [place] [address] [place] [address] Referral ID Status Reason Start Date Expiration Date V isits Requested Visits Authorized [id number] Closed Auto-Generate d Referral 10/09/2021 11/08/2022 1 1 [facility] for referral (narrative)* Consultation (Routine) - Authorized Specialty Diagnoses / Procedures Referred By Contac t Referred To Contact Physical Therapy Diagnoses Dizziness Cervical paraspinal muscle spasm Procedures GA OFFICE/OUTPATIENT [facility] MDM 60 MINUTES Kota Bonilla MD [address] [facility] [address] [place] [address] Teresa Croft, PT 112 [facility] [address] [place] [address] Referral ID Status Reason Start Date Expiration Date Visits Requested Visits Authorized [id number] Authorized Specialty Services Required 02/16/2024 08/14/2024 10 10 [facility] for referral (narrative)* Diagnostic Procedure Only (Routine) - Closed Specialty Diagnoses / Procedures Referred By Contac t Referred To Contact XR IMAGING Diagnoses Aftercare following right hip joint replacement surgery Procedures XR PELVIS 1V AP RADIOLOGIC EXAMINATION PELVIS 1/2 VIEWS Olive Amaya PA-C [address] [place] [address] [place] [address] Referral ID Status Reason Start Date Expiration Date V isits Requested Visits Authorized [id number] Closed Auto-Generate d Referral 03/24/2024 04/23/2025 1 1 [facility] for referral (narrative)* Diagnostic Procedure Only (Routine) - Closed Specialty Diagnoses / Procedures Referred By Contac t Referred To Contact XR IMAGING Diagnoses Aftercare following right hip joint replacement surgery Procedures XR PELVIS 1V AP RADIOLOGIC EXAMINATION PELVIS 1/2 VIEWS Olive Amaya PA-C [address] [place] [address] [place] [address] Referral ID Status Reason Start Date Expiration Date V isits Requested Visits Authorized [id number] Closed Auto-Generate d Referral 03/24/2024 04/23/2025 1 1 [facility] for referral (narrative)No reason for referral [facility] Work Phone: [facility] for visit NarrativeNeurosurgery Referral Update [facility] [employer] Other [employer] for visit Narrative* Diagnostic Procedure Only (Routine) - Closed Specialty Diagnoses / Procedures Referred By Contac t Referred To Contact XR IMAGING Diagnoses Aftercare following right hip joint replacement surgery Procedures XR PELVIS 1V AP RADIOLOGIC EXAMINATION PELVIS 1/2 VIEWS Olive Amaya PA-C [address] [place] [address] [place] [address] Referral ID Status Reason Start Date Expiration Date V isits Requested Visits Authorized [id number] Closed Auto-Generate d Referral 04/06/2023 05/05/2024 1 1 [facility] for visit Narrative* Diagnostic Procedure Only (Routine) - Closed Specialty Diagnoses / Procedures Referred By Contac t Referred To Contact XR IMAGING Diagnoses Pain Procedures XR HIP GENERAL 3V PELV/AP/LAT RIGHT RADEX HIP UNILATERAL WITH PELVIS 2-3 VIEWS Gregor Barahona, DO [address] [place] [address] [facility] [address] Referral ID Status Reason Start Date Expiration Date V isits Requested Visits Authorized [id number] Closed Auto-Generate d Referral 10/09/2021 11/08/2022 1 1 [facility] for visit Narrative* Consultation (Routine) - Authorized Specialty Diagnoses / Procedures Referred By Contac t Referred To Contact Physical Therapy Diagnoses Dizziness Cervical paraspinal muscle spasm Procedures GA OFFICE/OUTPATIENT NEW [facility] MDM 60 MINUTES Kota Bonilla MD [address] [place] [id number] Teresa Croft, PT [address] [address] Referral ID Status Reason Start Date Expiration Date Visits Requested Visits Authorized [id number] Authorized Specialty Services Required 02/16/2024 08/14/2024 10 10 [facility] Consultation (Routine) - Authorized Specialty Diagnoses / Procedures Referred By Contac t Referred To Contact Physical Therapy Diagnoses Dizziness Cervical paraspinal muscle spasm Procedures GA OFFICE/OUTPATIENT [facility] MDM 60 MINUTES Kota Bonilla MD [address] [place] [id number] Teresa Croft, PT [address] [address] Referral ID Status Reason Start Date Expiration Date Visits Requested Visits Authorized [id number] Authorized Specialty Services Required 02/16/2024 08/14/2024 15 15 [facility] N[facility]* Consultation (Routine) - Authorized Specialty Diagnoses / Procedures Referred By Contac t Referred To Contact Physical Therapy Diagnoses Dizziness Cervical paraspinal muscle spasm Procedures GA OFFICE/OUTPATIENT NEW [facility] MDM 60 MINUTES Kota Bonilla MD [address] [place] [address] Phone: tel: fax: Teresa Croft, PT [address] [address] Phone: tel: fax: Referral ID Status Reason Start Date Expiration Date Visits Requested Visits Authorized [id number] Authorized Specialty Services Required 02/16/2024 08/14/2024 15 15 [facility] N[facility]ative* Consultation (Routine) - Authorized Specialty Diagnoses / Procedures Referred By Ron pendleton Referred To Contact Physical Therapy Diagnoses Dizziness Cervical paraspinal muscle spasm Procedures GA OFFICE/OUTPATIENT NEW [facility] MDM 60 MINUTES Kota Bonilla MD [address] [address] Phone: tel: fax: Teresa Croft, PT [address] [address] Phone: tel: fax: Referral ID Status Reason Start Date Expiration Date Visits Requested Visits Authorized [id number] Authorized Specialty Services Required 02/16/2024 08/14/2024 15 19 [facility] Narrative* Diagnostic Procedure Only (Routine) - Closed Specialty Diagnoses / Procedures Referred By Ron pendleton Referred To Contact XR IMAGING Diagnoses Aftercare following right hip joint replacement surgery Procedures XR PELVIS 1V AP RADIOLOGIC EXAMINATION PELVIS 1/2 VIEWS Olive Amaya PA-C [address] [place] [address] [place] [address] Referral ID Status Reason Start Date Expiration Date V isits Requested Visits Authorized [id number] Closed Auto-Generate d Referral 03/24/2024 04/23/2025 1 1 [facility] for visit Narrative* Rehabilitation - Outpatient (Routine) - Authorized Specialty Diagnoses / Procedures Referred By Ron pendleton Referred To Contact Physical Therapy Diagnoses Trochanteric bursitis, right hip Lesion of sciatic nerve, right lower limb Procedures GA PHYSICAL THERAPY EVALUATION LOW COMPLEX 20 MINS GA OFFICE/OUTPATIENT NEW HIGH [place]DM 60 [place] [address] [place] [address] Phone: tel: Tamara Peres, PT Referral ID Status Reason Start Date Expiration Date V isits Requested Visits Authorized [id number] Authorized 11/10/2024 05/09/2025 20 20 [facility]Reason for visit Narrative* Rehabilitation - Outpatient (Routine) - Authorized Specialty Diagnoses / Procedures Referred By Contac t Referred To Contact Physical Therapy Diagnoses Trochanteric bursitis, right hip Lesion of sciatic nerve, right lower limb Procedures GA PHYSICAL THERAPY EVALUATION LOW COMPLEX 20 MINS [place] OFFICE/OUTPATIENT [facility] 60 [place] [address] [place] [address] Phone: tel: Tamara Peres, PT Referral ID Status Reason Start Date Expiration Date V isits Requested Visits Authorized [id number] Authorized 11/10/2024 05/17/2025 20 30 [facility] for [facility] Narrative* Diagnostic Procedure Only (Routine) - Closed Specialty Diagnoses / Procedures Referred By Contac t Referred To Contact XR IMAGING Diagnoses Low back pain, unspecified back pain laterality, unspecified chronicity, unspecified whether sciatica present Procedures XR LUMBAR LIMITED 2V AP/LAT RADEX SPINE LUMBOSACRAL 2/3 VIEWS Susie Maddox MD [address] [place] [address] Phone: tel: fax: [place] [address] Referral ID Status Reason Start Date Expiration Date V isits Requested Visits Authorized [id number] Closed Auto-Generate d Referral 01/18/2025 02/17/2026 1 1 [facility] Reason for Referral Specialty Diagnoses / Procedures Referred By Contac t Referred To Contact Orthopedics Diagnoses Primary osteoarthritis of right hip Procedures CONSULT TO ORTHOPAEDICS OFFICE/OUTPATIENT [facility] 60-74 MINUTES Gregor Barahona, [facility] [address] [place] [address] Referral ID Status Reason Start Date Expiration Date Visits Requested Visits Authorized [id number] Authorized PCP Requested Referral 10/25/2021 10/25/2022 1 1 Reason *FU 10/09 [facility] for right hip and right shoulder pain, chronic Diagnosis 1 Right hip pain (M25. 551) Referral Organization [facility] Xavier Flores Referring Provider First Name Lyndsay Referring Provider Last Name [facility] Referring Provider Specialty Nurse Pract itioner Referred Organization [facility] Referred Address [address] [place] [place], [place],[address] Referred Provider Specialty ORTHOPEDIC S URGEON Referral Priority Routine General Notes Christine Teresa 022 03:33:59 PM >Received and fax referral with form Reason *FU 10/09 Chronic neck pain and requests referral to [facility] Neuro Sx Diagnosis 1 Chronic neck pain (M 54.2) Referral Organization [facility] Family Xavier Flores Referring Provider First Name Lyndsay Referring Provider Last Name [facility] Referring Provider Specialty Nurse Pract itioner Referred Organization [facility] Referred Address [address] [place] [place], [place],[address] Referred Provider Specialty Neurological Surgery Referral Priority Routine General Notes Christine Teresa 022 03:40:31 PM >Received today and fax referral with form Specialty Diagnoses / Procedures Referred By Contac t Referred To Contact [facility] Diagnoses Primary osteoarthritis of right hip Procedures CONSULT TO PHYSICAL THERAPY PHYSICAL THERAPY EVALUATION HIGH COMPLEX 45 MINS Isaiah Arriaga MD [address] [place] [address] [facility] [place] [address] [place] [address] Referral ID Status Reason Start Date Expiration Date Visits Requested Visits Authorized [id number] Authorized PCP Requested Referral Auto-Generate d Referral [...] FoundDocuments on File Type Date Recorded Patient Physician Obstetrician Expl anation Advance Directive(s) 06/30/2022 1:49 PM Advance Directive Response Recorded Date/ Time Advance Directives No March 3:04pm Documents on File Type Date Recorded Patient Physician Obstetrician Expl anation Advance Directive(s) 06/30/2022 1:49 PM [...] pain x 2-3 weeks May 192024 10:25am Chief Complaint Admit Date wellness November 07, 2024 1:00 pm Unknown November 09, 2024 7:22 am Reason for Visit Admit Date Acute reaction to situational stress Andre e 2024 1:00pm Chronic kidney disease (CKD) November 07, 2024 1:00pm Dysuria November 07, 2024 1:00 pm HLD (hyperlipidemia) November 07, 2024 1:0 0pm HTN (hypertension) November 07, 2024 1:00 pm Memory change November 07, 2024 1:00 pm Right rotator cuff tear November 07, 2024 1:00pm Skin lesion of hand November 07, 2024 1:00 pm Encounter for annual wellness visit (AWV ) in Medicare patient November 07, 2024 1:00pm Chief Complaint Admit Date Unknown November 09, 2024 7:22 am 3 month February 07, 2025 9:29am Additional Source Comments Source Comments (unrecognize d section and content) In the event this informatio n is protected by the Federal Confidentiality of Alcohol and Drug Abuse Patient Records regulations: The Federal rules restrict any use of the information to criminally investigate or prosecute any alcohol or drug abuse patient.[facility] Hospital[facility] the event this information is protected by the Federal Confidentiality of Alcohol and Drug Abuse Patient Records regulations: The Federal rules restrict any use of the information to criminally investigate or prosecute any alcohol or drug abuse patient.[facility] HospitalIn the event this information is protected by the Federal Confidentiality of Alcohol and Drug Abuse Patient Records regulations: The Federal rules restrict any use of the information to criminally investigate or prosecute any alcohol or drug abuse patient.[facility] HospitalIn the event this information is protected by the Federal Confidentiality of Alcohol and Drug Abuse Patient Records regulations: The Federal rules restrict any use of the information to criminally investigate or prosecute any alcohol or drug abuse patient.[facility] HospitalIn the event this information is protected by the Federal Confidentiality of Alcohol and Drug Abuse Patient Records regulations: The Federal rules restrict any use of the information to criminally investigate or prosecute any alcohol or drug abuse patient.[facility] HospitalIn the event this information is protected by the Federal Confidentiality of Alcohol and Drug Abuse Patient Records regulations: The Federal rules restrict any use of the information to criminally investigate or prosecute any alcohol or drug abuse patient.[facility] HospitalIn the event this information is protected by the Federal Confidentiality of Alcohol and Drug Abuse Patient Records regulations: The Federal rules restrict any use of the information to criminally investigate or prosecute any alcohol or drug abuse patient.[facility] HospitalIn the event this information is protected by the Federal Confidentiality of Alcohol and Drug Abuse Patient Records regulations: The Federal rules restrict any use of the information to criminally investigate or prosecute any alcohol or drug abuse patient.[facility] HospitalIn the event this information is protected by the Federal Confidentiality of Alcohol and Drug Abuse Patient Records regulations: The Federal rules restrict any use of the information to criminally investigate or prosecute any alcohol or drug abuse patient.[facility] HospitalIn the event this information is protected by the Federal Confidentiality of Alcohol and Drug Abuse Patient Records regulations: The Federal rules restrict any use of the information to criminally investigate or prosecute any alcohol or drug abuse patient.[facility] HospitalIn the event this information is protected by the Federal Confidentiality of Alcohol and Drug Abuse Patient Records regulations: The Federal rules restrict any use of the information to criminally investigate or prosecute any alcohol or drug abuse patient.[facility] HospitalIn the event this information is protected by the Federal Confidentiality of Alcohol and Drug Abuse Patient Records regulations: The Federal rules restrict any use of the information to criminally investigate or prosecute any alcohol or drug abuse patient.[facility] HospitalIn the event this information is protected by the Federal Confidentiality of Alcohol and Drug Abuse Patient Records regulations: The Federal rules restrict any use of the information to criminally investigate or prosecute any alcohol or drug abuse patient.[facility] HospitalIn the event this information is protected by the Federal Confidentiality of Alcohol and Drug Abuse Patient Records regulations: The Federal rules restrict any use of the information to criminally investigate or prosecute any alcohol or drug abuse patient.[facility] HospitalIn the event this information is protected by the Federal Confidentiality of Alcohol and Drug Abuse Patient Records regulations: The Federal rules restrict any use of the information to criminally investigate or prosecute any alcohol or drug abuse patient.[facility] HospitalIn the event this information is protected by the Federal Confidentiality of Alcohol and Drug Abuse Patient Records regulations: The Federal rules restrict any use of the information to criminally investigate or prosecute any alcohol or drug abuse patient.[facility] HospitalIn the event this information is protected by the Federal Confidentiality of Alcohol and Drug Abuse Patient Records regulations: The Federal rules restrict any use of the information to criminally investigate or prosecute any alcohol or drug abuse patient.[facility] HospitalIn the event this information is protected by the Federal Confidentiality of Alcohol and Drug Abuse Patient Records regulations: The Federal rules restrict any use of the information to criminally investigate or prosecute any alcohol or drug abuse patient.[facility] HospitalIn the event this information is protected by the Federal Confidentiality of Alcohol and Drug Abuse Patient Records regulations: The Federal rules restrict any use of the information to criminally investigate or prosecute any alcohol or drug abuse patient.[facility] HospitalIn the event this information is protected by the Federal Confidentiality of Alcohol and Drug Abuse Patient Records regulations: The Federal rules restrict any use of the information to criminally investigate or prosecute any alcohol or drug abuse patient.[facility] HospitalIn the event this information is protected by the Federal Confidentiality of Alcohol and Drug Abuse Patient Records regulations: The Federal rules restrict any use of the information to criminally investigate or prosecute any alcohol or drug abuse patient.[facility] HospitalIn the event this information is protected by the Federal Confidentiality of Alcohol and Drug Abuse Patient Records regulations: The Federal rules restrict any use of the information to criminally investigate or prosecute any alcohol or drug abuse patient.[facility] HospitalIn the event this information is protected by the Federal Confidentiality of Alcohol and Drug Abuse Patient Records regulations: The Federal rules restrict any use of the information to criminally investigate or prosecute any alcohol or drug abuse patient.[facility] HospitalIn the event this information is protected by the Federal Confidentiality of Alcohol and Drug Abuse Patient Records regulations: The Federal rules restrict any use of the information to criminally investigate or prosecute any alcohol or drug abuse patient.[facility] HospitalIn the event this information is protected by the Federal Confidentiality of Alcohol and Drug Abuse Patient Records regulations: The Federal rules restrict any use of the information to criminally investigate or prosecute any alcohol or drug abuse patient.[facility] HospitalIn the event this information is protected by the Federal Confidentiality of Alcohol and Drug Abuse Patient Records regulations: The Federal rules restrict any use of the information to criminally investigate or prosecute any alcohol or drug abuse patient.[facility] HospitalIn the event this information is protected by the Federal Confidentiality of Alcohol and Drug Abuse Patient Records regulations: The Federal rules restrict any use of the information to criminally investigate or prosecute any alcohol or drug abuse patient.[facility] HospitalIn the event this information is protected by the Federal Confidentiality of Alcohol and Drug Abuse Patient Records regulations: The Federal rules restrict any use of the information to criminally investigate or prosecute any alcohol or drug abuse patient.[facility] HospitalIn the event this information is protected by the Federal Confidentiality of Alcohol and Drug Abuse Patient Records regulations: The Federal rules restrict any use of the information to criminally investigate or prosecute any alcohol or drug abuse patient.[facility] HospitalIn the event this information is protected by the Federal Confidentiality of Alcohol and Drug Abuse Patient Records regulations: The Federal rules restrict any use of the information to criminally investigate or prosecute any alcohol or drug abuse patient.[facility] HospitalIn the event this information is protected by the Federal Confidentiality of Alcohol and Drug Abuse Patient Records regulations: The Federal rules restrict any use of the information to criminally investigate or prosecute any alcohol or drug abuse patient.[facility] HospitalIn the event this information is protected by the Federal Confidentiality of Alcohol and Drug Abuse Patient Records regulations: The Federal rules restrict any use of the information to criminally investigate or prosecute any alcohol or drug abuse patient.[facility] HospitalIn the event this information is protected by the Federal Confidentiality of Alcohol and Drug Abuse Patient Records regulations: The Federal rules restrict any use of the information to criminally investigate or prosecute any alcohol or drug abuse patient.[facility] HospitalIn the event this information is protected by the Federal Confidentiality of Alcohol and Drug Abuse Patient Records regulations: The Federal rules restrict any use of the information to criminally investigate or prosecute any alcohol or drug abuse patient.[facility] HospitalIn the event this information is protected by the Federal Confidentiality of Alcohol and Drug Abuse Patient Records regulations: The Federal rules restrict any use of the information to criminally investigate or prosecute any alcohol or drug abuse patient.[facility] HospitalIn the event this information is protected by the Federal Confidentiality of Alcohol and Drug Abuse Patient Records regulations: The Federal rules restrict any use of the information to criminally investigate or prosecute any alcohol or drug abuse patient.[facility] Hospital[facility] the event this information is protected by the Federal Confidentiality of Alcohol and Drug Abuse Patient Records regulations: The Federal rules restrict any use of the information to criminally investigate or prosecute any alcohol or drug abuse patient.[facility] HospitalIn the event this information is protected by the Federal Confidentiality of Alcohol and Drug Abuse Patient Records regulations: The Federal rules restrict any use of the information to criminally investigate or prosecute any alcohol or drug abuse patient.[facility] HospitalIn the event this information is protected by the Federal Confidentiality of Alcohol and Drug Abuse Patient Records regulations: The Federal rules restrict any use of the information to criminally investigate or prosecute any alcohol or drug abuse patient.[facility] HospitalIn the event this information is protected by the Federal Confidentiality of Alcohol and Drug Abuse Patient Records regulations: The Federal rules restrict any use of the information to criminally investigate or prosecute any alcohol or drug abuse patient.[facility] HospitalIn the event this information is protected by the Federal Confidentiality of Alcohol and Drug Abuse Patient Records regulations: The Federal rules restrict any use of the information to criminally investigate or prosecute any alcohol or drug abuse patient.[facility] HospitalIn the event this information is protected by the Federal Confidentiality of Alcohol and Drug Abuse Patient Records regulations: The Federal rules restrict any use of the information to criminally investigate or prosecute any alcohol or drug abuse patient.[facility] HospitalIn the event this information is protected by the Federal Confidentiality of Alcohol and Drug Abuse Patient Records regulations: The Federal rules restrict any use of the information to criminally investigate or prosecute any alcohol or drug abuse patient.[facility] HospitalIn the event this information is protected by the Federal Confidentiality of Alcohol and Drug Abuse Patient Records regulations: The Federal rules restrict any use of the information to criminally investigate or prosecute any alcohol or drug abuse patient.[facility] HospitalIn the event this information is protected by the Federal Confidentiality of Alcohol and Drug Abuse Patient Records regulations: The Federal rules restrict any use of the information to criminally investigate or prosecute any alcohol or drug abuse patient.[facility] HospitalIn the event this information is protected by the Federal Confidentiality of Alcohol and Drug Abuse Patient Records regulations: The Federal rules restrict any use of the information to criminally investigate or prosecute any alcohol or drug abuse patient.[facility] HospitalIn the event this information is protected by the Federal Confidentiality of Alcohol and Drug Abuse Patient Records regulations: The Federal rules restrict any use of the information to criminally investigate or prosecute any alcohol or drug abuse patient.[facility] HospitalIn the event this information is protected by the Federal Confidentiality of Alcohol and Drug Abuse Patient Records regulations: The Federal rules restrict any use of the information to criminally investigate or prosecute any alcohol or drug abuse patient.[facility] HospitalIn the event this information is protected by the Federal Confidentiality of Alcohol and Drug Abuse Patient Records regulations: The Federal rules restrict any use of the information to criminally investigate or prosecute any alcohol or drug abuse patient.[facility] HospitalIn the event this information is protected by the Federal Confidentiality of Alcohol and Drug Abuse Patient Records regulations: The Federal rules restrict any use of the information to criminally investigate or prosecute any alcohol or drug abuse patient.[facility] HospitalIn the event this information is protected by the Federal Confidentiality of Alcohol and Drug Abuse Patient Records regulations: The Federal rules restrict any use of the information to criminally investigate or prosecute any alcohol or drug abuse patient.[facility] HospitalIn the event this information is protected by the Federal Confidentiality of Alcohol and Drug Abuse Patient Records regulations: The Federal rules restrict any use of the information to criminally investigate or prosecute any alcohol or drug abuse patient.[facility] HospitalIn the event this information is protected by the Federal Confidentiality of Alcohol and Drug Abuse Patient Records regulations: The Federal rules restrict any use of the information to criminally investigate or prosecute any alcohol or drug abuse patient.[facility] Reason for Visit (unrecogniz ed section and content) Reason Comments Received Outside Medical Records Reason Comments Radiology XR Reason Comments New Pain Reason Comments Fuch's Dystrophy Reason Comments Medication Question Reason Comments New Pain Specialty Diagnoses / Procedures Referred By oRn pendleton Referred To Contact Orthopedics Diagnoses Primary osteoarthritis of right hip Procedures CONSULT TO ORTHOPAEDICS OFFICE/OUTPATIENT [facility] 60-74 MINUTES Gregor Barahona, [facility] [address] [place] [address] Referral ID Status Reason Start Date Expiration Date V isits Requested Visits Authorized [id number] Closed PCP Requested Referral 10/25/2021 10/25/2022 1 [...] PELVIS 1/2 VIEWS Olive Amaya PA-C [address] [place] [address] [place] [address] Referral ID Status Reason Start Date Expiration Date V isits Requested Visits Authorized [id number] Closed Auto-Generate d Referral 09/22/2023 10/21/2024 1 1 Specialty Diagnoses / Procedures Referred By Contac t Referred To Contact XR IMAGING Diagnoses Primary osteoarthritis of right hip Procedures XR HIP GENERAL 3V PELV/AP/LAT RIGHT RADEX HIP UNILATERAL WITH PELVIS 2-3 VIEWS Isaiah Arriaga MD [address] [place] [address] [place] [address] Referral ID Status Reason Start Date Expiration Date V isits Requested Visits Authorized [id number] Closed Auto-Generate d Referral 12/16/2022 01/15/2024 1 1 Referral ID Status Reason Start Date Expiration Date V isits Requested Visits Authorized [id number] Closed Auto-Generate d Referral 01/04/2022 02/03/2023 1 1 Specialty Diagnoses / Procedures Referred By Contac t Referred To Contact XR IMAGING Diagnoses Pain Procedures XR SHOULDER GENERAL 3V OR MORE AP/TRUE AP/OTHER RIGHT RADEX SHOULDER COMPLETE MINIMUM 2 VIEWS Gregor Barahona, DO [address] [place] [address] [place] [address] Referral ID Status Reason Start Date Expiration Date V isits Requested Visits Authorized [id number] Closed Auto-Generate d Referral 10/09/2021 11/08/2022 1 1 Reason Comments Cervical Spondylosis Reason Onset Date Comments PT Initial Eval 02/18/2024 Tried to contact to schedule PT Eval for dizziness / muscle spasms; lm requesting a call back. fu 02/23/2024 Contacted and sc heduled PT Cricket w/ Teresa Croft, PT on 02/24/24. Reason Comments Established Patient Pain Reason Comments Med Change Request Reason Comments PT Order Reason Onset Date Comments re: PT 12/08/2024 Reason Comments Established Patient Follow Up Reason Comments Appointment Reason Comments Consult Care Teams (unrecognized sec tion and content) [...] Care Sherrill bobo Attending Provider Active Start: September 04, 2023 End: September 04, 2023 Lunch Cook Relationship Specialty Start Date End Date Easterwood, Lyndsay, POLYMERIZATION KETTLE OPERATOR [address] [address] Referring Family Practice 10/02/21 Lunch Cook Relationship Specialty Start Date End Date Easterwood, Lyndsay, POLYMERIZATION KETTLE OPERATOR [address] [address] Referring Family Practice 10/02/21 Lunch Cook Relationship Specialty Start Date End Date Easterwood, Lyndsay, POLYMERIZATION KETTLE OPERATOR [address] [address] Referring Family Practice 10/02/21 Lunch Cook Relationship Specialty Start Date End Date Easterwood, Lydnsay, POLYMERIZATION KETTLE OPERATOR [address] [address] Referring Family Practice 10/02/21 Lunch Cook Relationship Specialty Start Date End Date Easterwood, Lyndsay, POLYMERIZATION KETTLE OPERATOR [address] [address] Referring Family Practice 10/02/21 Lunch Cook Relationship Specialty Start Date End Date Easterwood, Lyndsay, POLYMERIZATION KETTLE OPERATOR [address] [address] Referring Family Practice 10/02/21 Lunch Cook Relationship Specialty Start Date End Date Lyndsay Dunbar, POLYMERIZATION KETTLE OPERATOR [address] [address] Referring Family Practice 10/02/21 Lunch Cook Relationship Specialty Start Date End Date Jc Dunbara, POLYMERIZATION KETTLE OPERATOR [address] [address] Referring Family Medicine 10/02/21 Lunch Cook Relationship Specialty Start Date End Date Jc Dunbara, POLYMERIZATION KETTLE OPERATOR [address] [address] Referring Family Medicine 10/02/21 Lunch Cook Relationship Specialty Start Date End Date Jc Dunbara, POLYMERIZATION KETTLE OPERATOR [address] [address] Referring Family Medicine 10/02/21 Lunch Cook Relationship Specialty Start Date End Date Jc Dunbara, POLYMERIZATION KETTLE OPERATOR [address] [address] PCP - General Family Medicine 03/10/22 IjeomatriciaJca, POLYMERIZATION KETTLE OPERATOR [address] [address] Referring Family Medicine 10/02/21 Lunch Cook Relationship Specialty Start Date End Date PanchitopriyankaJc clarkea, POLYMERIZATION KETTLE OPERATOR [address] [address] PCP - General Family Medicine 03/10/22 Panchitomauricio Lyndsay, POLYMERIZATION KETTLE OPERATOR [address] [address] Referring Family Medicine 10/02/21 Lunch Cook Relationship Specialty Start Date End Date Manjinder Lyndsay, POLYMERIZATION KETTLE OPERATOR [address] [facility] [address] [place] [address] PCP - General Family Medicine 03/10/22 Lyndsay Dunbar, POLYMERIZATION KETTLE OPERATOR [address] [place] [address] Referring Family Medicine 10/02/21 Lunch Cook Relationship Specialty Start Date End Date Lyndsay Dunbar, POLYMERIZATION KETTLE OPERATOR [address] [place] [address] PCP - General Family Medicine 03/10/22 Panchitomauricio Lyndsay, POLYMERIZATION KETTLE OPERATOR [address] [place] [address] Referring Family Medicine 10/02/21 Lunch Cook Relationship Specialty Start Date End Date Lyndsay Dunbar CNP [address] [place] [address] PCP - General Family Medicine 03/10/22 Lyndsay Dunbar POLYMERIZATION KETTLE OPERATOR [address] [place] [address] Referring Family Medicine 10/02/21 Lunch Cook Relationship Specialty Start Date End Date Lyndsay Dunbar CNP [address] [place] [address] PCP - General Family Medicine 03/10/22 Lyndsay Dunbar POLYMERIZATION KETTLE OPERATOR [address] [place] [address] Referring Family Medicine 10/02/21 Lunch Cook Relationship Specialty Start Date End Date IjeomatriciaLyndsay, POLYMERIZATION KETTLE OPERATOR [address] [facility] [address] [place] [address] PCP - General Family Medicine 03/10/22 Lyndsay Dunbar, POLYMERIZATION KETTLE OPERATOR [address] [address] Referring Family Medicine 10/02/21 Lunch Cook Relationship Specialty Start Date End Date Lyndsay Dunbar POLYMERIZATION KETTLE OPERATOR [address] [address] PCP - General Family Medicine 03/10/22 Manjinder Lyndsay, POLYMERIZATION KETTLE OPERATOR [address] [address] Referring Family Medicine 10/02/21 Lunch Cook Relationship Specialty Start Date End Date Manjinder Lyndsay POLYMERIZATION KETTLE OPERATOR [address] [address] PCP - General Family Medicine 03/10/22 Lyndsay Dunbar POLYMERIZATION KETTLE OPERATOR [address] [address] Referring Family Medicine 10/02/21 Lunch Cook Relationship Specialty Start Date End Date Manjinder Lyndsay, POLYMERIZATION KETTLE OPERATOR [address] [address] PCP - General Family Medicine 03/10/22 Lyndsay Dunbar, POLYMERIZATION KETTLE OPERATOR [address] [address] Referring Family Medicine 10/02/21 Team Status: Inactive Member Role Status Dates Lyndsay Dunbar APRN Primary Care Provider, Attend ing Provider Active Lunch Cook Relationship Specialty Start Date End Date Lyndsay Dunbar CNP [address] [address] PCP - General Family Medicine 03/10/22 Lyndsay Dunbar CNP [address] [address] Referring Family Medicine 10/02/21 Lunch Cook Relationship Specialty Start Date End Date Lyndsay Dunbar CNP [address] [address] PCP - General Family Medicine 03/10/22 Lyndsay Dunbar CNP [address] [address] Referring Family Medicine 10/02/21 Lunch Cook Relationship Specialty Start Date End Date Lyndsay Dunbar CNP [address] [address] PCP - General Family Medicine 03/10/22 Lyndsay Dunbar CNP [address] [address] Referring Family Medicine 10/02/21 Lunch Cook Relationship Specialty Start Date End Date Lyndsay Dunbar CNP [address] [address] PCP - General Family Medicine 03/10/22 Lyndsay Dunbar CNP [address] [address] Referring Family Medicine 10/02/21 Lunch Cook Relationship Specialty Start Date End Date Lyndsay Dunbar CNP [address] [address] PCP - General Family Medicine 03/10/22 Lyndsay Dunbar CNP [address] [address] Referring Family Medicine 10/02/21 Lunch Cook Relationship Specialty Start Date End Date Lyndsay Dunbar CNP [address] [address] PCP - General Family Medicine 03/10/22 Lyndsay Dunbar CNP [address] [address] Referring Family Medicine 10/02/21 Lunch Cook Relationship Specialty Start Date End Date Lyndsay Dunbar CNP [address] [address] PCP - General Family Medicine 03/10/22 Lyndsay Dnubar CNP [address] [address] Referring Family Medicine 10/02/21 Lunch Cook Relationship Specialty Start Date End Date Lyndsay Dunbar CNP [address] [address] PCP - General Family Medicine 03/10/22 Lyndsay Dunbar CNP [address] [address] Referring Family Medicine 10/02/21 Lunch Cook Relationship Specialty Start Date End Date Lyndsay Dunbar CNP [address] [address] PCP - General Family Medicine 03/10/22 Lyndsay Dunbar CNP [address] [address] Referring Family Medicine 10/02/21 Team Status: Active [...] Care Pr ovider, Attending Provider Active Start: October 29, 2023 End: October 29, 2023 Lunch Cook Relationship Specialty Start Date End Date Lyndsay Dunbar CNP [address] [facility] [address] [place] [address] PCP - General Family Medicine 03/10/22 Lyndsay Dunbar CNP [address] [facility] [address] [place] [address] Referring Family Medicine 10/02/21 Lunch Cook Relationship Specialty Start Date End Date Lyndsay Dunbar CNP [address] [facility] [address] [place] [address] PCP - General Family Medicine 03/10/22 Lyndsay Dunbar CNP 348 [facility] [place] [address] Referring Family Medicine 10/02/21 Team Status: Inactive Member Role Status Dates Lyndsay Dunbar APRN Primary Care Pr ovidpriyanka, Attending Provider Active Start: February 08, 2024 End: February 08, 2024 Lunch Cook Relationship Specialty Start Date End Date Lyndsay Dunbar CNP [address] [facility] [address] [place] [address] Referring Family Medicine 10/02/21 Lunch Cook Relationship Specialty Start Date End Date Lyndsay Dunbar CNP [address] [facility] [place] [address] Referring Family Medicine 10/02/21 Lunch Cook Relationship Specialty Start Date End Date Lyndsay Dunbar CNP [address] [facility] [address] [place] [address] Referring Family Medicine 10/02/21 Lunch Cook Relationship Specialty Start Date End Date Unallocated, [place] [address] PCP - General 01/06/23 Lunch Cook Relationship Specialty Start Date End Date Unallocated, [place] [address] PCP - General 01/06/23 Lunch Cook Relationship Specialty Start Date End Date Unallocated, Vilma Lopez MD [facility] [place] [address] PCP - General 01/06/23 Lunch Cook Relationship Specialty Start Date End Date Unallocated, Vilma Lopez MD [facility] [place] [address] PCP - General 01/06/23 Lunch Cook Relationship Specialty Start Date End Date Unallocated, Vilma Lopez MD [facility] [place] [address] PCP - General 01/06/23 Lunch Cook Relationship Specialty Start Date End Date Unallocated, Vilma Lopez MD [facility] [place] [address] PCP - General 01/06/23 Lunch Cook Relationship Specialty Start Date End Date Unallocated, Vilma Lopez MD [facility] [place] [address] PCP - General 01/06/23 Lunch Cook Relationship Specialty Start Date End Date Unallocated, Vilma Lopez MD [address] [place] [address] PCP - General 01/06/23 Lunch Cook Relationship Specialty Start Date End Date Unallocated, Vilma Lopez MD [address] [place] [address] PCP - General 01/06/23 Lunch Cook Relationship Specialty Start Date End Date Unallocated, Vilma Lopez MD [facility] [address] [facility] [place] [address] PCP - General 01/06/23 Lunch Cook Relationship Specialty Start Date End Date Unallocated, Vilma Lopez MD [facility] [place] [address] PCP - General 01/06/23 Lunch Cook Relationship Specialty Start Date End Date Unallocated, Vilma Lopez MD [address] [place], [place] [address] [address] PCP - General 01/06/23 Lunch Cook Relationship Specialty Start Date End Date Unallocated, Vilma Lopez MD [address] [place], [place] [address] [address] PCP - General 01/06/23 Lunch Cook Relationship Specialty Start Date End Date Lyndsay Dunbar CNP [address] [address] PCP - General Family Medicine 03/10/22 Lyndsay Dunbar CNP [address] [address] Referring Family Medicine 10/02/21 Team Status: Inactive Member Role Status Dates Lyndsay Dunbar APRN Primary Care Pr ovidpriyanka, Attending Provider Active Start: 2024 End: 2024 Lunch Cook Relationship Specialty Start Date End Date Unallocated, Vilma Lopez MD [address] [place] [address] PCP - General 01/06/23 Lyndsay Dunbar MD [address] [facility] [place] [address] Referring Physician Family Medicine 06/27/24 Lunch Cook Relationship Specialty Start Date End Date Unallocated, Vilma Lopez MD [address] [place] [address] PCP - General 01/06/23 Lyndsay Dunbar MD [address] [facility] [place] [address] Referring Physician Family Medicine 06/27/24 Lunch Cook Relationship Specialty Start Date End Date Unallocated, Vilma Lopez MD [address] [place] [address] PCP - General 01/06/23 Lyndsay Dunbar NP [address] [place] [address] Referring Physician Family Medicine 06/27/24 Lunch Cook Relationship Specialty Start Date End Date Unallocated, Vilma Lopez MD [address] [facility] [place] [address] PCP - General 01/06/23 Lyndsay Dunbar NP [address] [place] [address] Referring Physician Family Medicine 06/27/24 Lunch Cook Relationship Specialty Start Date End Date Unallocated, Vilma Lopez MD [address] [facility] [place] [address] PCP - General 01/06/23 Lyndsay Dunbar NP [address] [facility] [address] Referring Physician Family Medicine 06/27/24 Team Status: Active Member Role Status Dates Isaiah Arriaga Ii, MD Specialist Active Kota Bonilla MD Specialist Active Team Status: Inactive Member Role Status Dates Lyndsay Dunbar APRN Primary Care Provider Active Start: November 07, 2024 End: November 07, 2024 Lyndsay Dunbar APRN Attending Provider Active Start: November 07, 2024 End: November 07, 2024 Kota Bonilla MD Neurology Active Start: November 07, 2024 End: November 07, 2024 Team Status: Active Member Role Status Dates Lyndsay Dunbar APRN Primary Care Provider Active Start: November 09, 2024 Lyndsay Torres Attending Provider Active Start: November 09, 2024 Team Status: Inactive Member Role Status Dates Lyndsay Dunbar APRN Attending Provider Active Start: November 09, 2024 End: November 09, 2024 Lunch Cook Relationship Specialty Start Date End Date Unallocated, Sadies MD John [address] [facility] [address] PCP - General 01/06/23 Lyndsay Dunbar NP [address] [place] [address] Referring Physician Family Medicine 06/27/24 Lunch Cook Relationship Specialty Start Date End Date Lyndsay Dunbar CNP [address] [address] PCP - General Family Medicine 03/10/22 Lyndsay Dunbar CNP [address] [address] Referring Family Medicine 10/02/21 Lunch Cook Relationship Specialty Start Date End Date Unallocated, Vilma Lopez MD [address] [place] [address] PCP - General 01/06/23 Lyndsay Dunbar NP [address] [place] [address] Referring Physician Family Medicine 06/27/24 Lunch Cook Relationship Specialty Start Date End Date Unallocated, Vilma Lopez MD [address] [place] [address] PCP - General 01/06/23 Lyndsay Dunbar NP [facility] [place] [address] Referring Physician Family Medicine 06/27/24 Lunch Cook Relationship Specialty Start Date End Date Unallocated, Vilma Lopez MD [address] [place] [address] PCP - General 01/06/23 Lyndsay Dunbar [employer] [address] [place] [address] Referring Physician Family Medicine 06/27/24 Lunch Cook Relationship Specialty Start Date End Date Unallocated, Vilma Lopez MD [address] [place] [address] PCP - General 01/06/23 Lyndsay Dunbar NP [address] [place] [address] Referring Physician Family Medicine 06/27/24 Lunch Cook Relationship Specialty Start Date End Date Unallocated, Vilma Lopez MD [address] [place] [address] PCP - General 01/06/23 Lyndsay Dunbar NP [address] [place] [address] Referring Physician Family Medicine 06/27/24 Lunch Cook Relationship Specialty Start Date End Date Unallocated, Noms MD John [address] [place] [address] PCP - General 01/06/23 Lyndsay Dunbar NP [address] [place] [address] Referring Physician Family Medicine 06/27/24 Lunch Cook Relationship Specialty Start Date End Date Lyndsay Dunbar CNP [address] [address] PCP - General Family Medicine 03/10/22 Lyndsay Dunbar CNP [address] [address] Referring Family Medicine 10/02/21 Lunch Cook Relationship Specialty Start Date End Date Lyndsay Dunbar CNP [address] [address] PCP - General Family Medicine 03/10/22 Lyndsay Dunbar CNP [address] [address] Referring Family Medicine 10/02/21 Lunch Cook Relationship Specialty Start Date End Date Lyndsay Dunbar CNP [address] [address] PCP - General Family Medicine 03/10/22 Lyndsay Dunbar CNP [address] [address] Referring Family Medicine 10/02/21 Lunch Cook Relationship Specialty Start Date End Date Manjinder LyndsayFREDI [address] [address] PCP - General Family Medicine 03/10/22 Lyndsay Dunbar CNP [address] [address] Referring Family Medicine 10/02/21 Lunch Cook Relationship Specialty Start Date End Date Manjinder FREDI Ren [address] [address] PCP - General Family Medicine 03/10/22 Lyndsay Dunbar CNP [address] [address] Referring Family Medicine 10/02/21 Lunch Cook Relationship Specialty Start Date End Date Manjinder FREDI Ren [address] [address] PCP - General Family Medicine 03/10/22 Lyndsay Dunbar CNP [address] [address] Referring Family Medicine 10/02/21 Team Status: Active Member Role Status Dates Isaiah Arriaga Ii, MD Specialist Active Kota Bonilla MD Specialist Active Alyson Vega DPM Podiatry Active Fausto Maddox [facility] Active MELVIN [facility] Active Lyndsay Dunbar APRN Primary Care Provider Active Team Status: Inactive Member Role Status Dates Lyndsay Dunbar APRN Primary Care Provider Active Start: February 07, 2025 End: February 07, 2025 Lyndsay Dunbar APRN Attending Provider Active Start: February 07, 2025 End: February 07, 2025 INFORMATION SOURCE (unrecogn ized section and content) DATE CREATED AUTHOR 04/19/2022 [facility] DATE CREATED AUTHOR AUTHOR'S ORGANIZ ATION 03/22/2023 [facility] DATE CREATED AUTHOR AUTHOR'S ORGANIZ ATION 11/12/2024 [facility] DATE CREATED AUTHOR AUTHOR'S ORGANIZ ATION 12/07/2024 [facility] DATE CREATED AUTHOR AUTHOR'S ORGANIZ ATION 01/23/2025 [facility] DATE CREATED AUTHOR AUTHOR'S ORGANIZ ATION 02/23/2025 [facility] Goals (unrecognized section and content) Goals [...] BE BASED ON THE PRIMARY CLINICAL RECORDS. [facility] [email or web address] [facility]. provides no warranty or guarantee of the accuracy or completeness of information in this document.
--- NOTE | 2025-03-03 08:38 | XR_ITS ---
[facility] [place] [id number] Patient Name: GRACIE FAROOQ MRN: [id number] date: 1950 Sex: F Assigned Patient Location: CARD Current Patient Location: CARD Accession/Order Number: [id number] Exam Date: 03/03/2025 08:47 Report Date: 03/03/2025 09:22 At the request of: LYNDSAY DUNBAR NP Procedure: XR chest 2V PA AND LATERAL CHEST: CLINICAL HISTORY: Shortness Of Breath COMPARISON: None There is no focal parenchymal consolidation, effusion or pneumothorax. The cardiac, hilar and mediastinal silhouettes are within normal limits. There is no vascular congestion. The visualized bony thorax is intact. Minor degenerative change and subtle scoliotic curvature are present at the spine. There is prior cervical fusion. XR/XR chest 2V IMPRESSION: NO ACUTE CARDIOPULMONARY ABNORMALITY. Impression dictated by: Tiana Ayers M.D. 03/03/2025 9:22 AM Dictation Location: [place] [address] Electronically authenticated by: [id number] Y Date: 03/03/2025 09:22
== END 2025-03-03 08:01 | disposition home or self-care (01) ==
LOC: CARD 08:01
PROVIDERS: PCP Nurse Practitioner Family; Visit Provider Nurse Practitioner Family
DX: R06.02 Shortness of breath (principal)
CPT/HCPCS: 71046; 93306